=== PATIENT | female | born 1960 | race Caucasian/White ===

== ENCOUNTER 2016-05-04 01:59 | Inpatient (IN) | payer OTHER ==
[~2016-05-04] VITALS: Ht 154.9 cm; Wt 65.0 kg
[~2016-05-04 01:59] MED LIST: ALBU8I INH; ASPI81TA82 PO; METO25 PO; MVI PO; SYMB160A INH; TIOT18I INH; Z.0.WALKERFRONT
[2016-05-04 02:03] VITALS: BP 157/79; PULSE 77; RESP 22; TEMP 98.4; O2SAT 99
[2016-05-04] MEDS ORDERED: RESP: ALBUTEROL 2.5 MG/IPRATROPIUM 0.5 MG NEB (SCH) ONE (02:05)
--- NOTE | 2016-05-04 02:09 | PD ---
HPI Chief Complaint: Respiratory Symptoms Time Seen by Provider: 02:03 Travel History International Travel<30 days: No Contact w/Intl Traveler<30days: No Traveled to known affect area: No History of Present Illness HPI Patient's 56-year-old female presents emergency department after having sudden onset of shortness of breath. Patient has a history of asthma and states often this is her presentation. States started just prior to calling EMS. EMS arrived and gave her 3 duo nebs and 125,000,000 g on Medrol. On arrival she states she is feeling much better. She is able to talk in full sentences on arrival. Patient has a pertinent past history of a cardiac arrest at [facility] after sudden onset of shortness of breath. Patient states that she's been taking her inhalers at home and still has an occasional exacerbation. PFSH Past Medical History Cardiovascular Problems: Yes (htn) Respiratory: Yes (copd) Menopausal: Yes Tubal Ligation: Yes Social History Alcohol Use: No Tobacco Use: No Substance Use: Yes Allergies-Medications (Allergen,Severity, Reaction): Coded Allergies: No Known Allergies (Unverified , 05/04/16) Reported Meds & Prescriptions Reported Meds & Active Scripts Active Ventolin Hfa (Albuterol Sulfate) 8 Gm Aero 1 Puff INH Q4H PRN * SHAKE WELL BEFORE USE * Spiriva 18 Mcg Oral Inh (Tiotropium [place]) 18 Mcg Inhp 18 Mcg INH DAILY 30 Days Metoprolol Tartrate 25 mg (Metoprolol Tartrate) 25 Mg Tab 25 Mg PO Q12HR Symbicort (Budesonide/Formoterol Fumarate) 160 Mcg/4.5 Mcg Aer 2 Puff INH Q12HR 30 Days Aspir-81 (Aspirin) 81 Mg Tab 81 Mg PO DAILY Walker Front Wheel (Walkerfront) Device 1 Unit Theragran (Multivitamins) 1 Tab Tab 1 Tab PO DAILY 30 Days Review of Systems Except as stated in HPI: all other systems reviewed are Neg Physical Exam Narrative GENERAL: Well-developed well-nourished no apparent distress. Speaking in full sentences. SKIN: Warm and dry. HEAD: Atraumatic. Normocephalic. EYES: Pupils equal and round. No scleral icterus. No injection or drainage. ENT: No nasal bleeding or discharge. Mucous membranes pink and moist. NECK: Trachea midline. No JVD. CARDIOVASCULAR: Regular rate and rhythm. No murmur appreciated. RESPIRATORY: No accessory muscle use. Patient has Holo-expiratory wheezing. Breath sounds equal bilaterally. Somewhat decreased air entry. GASTROINTESTINAL: Abdomen soft, non-tender, nondistended. Hepatic and splenic margins not palpable. MUSCULOSKELETAL: No obvious deformities. No clubbing. No cyanosis. No edema. NEUROLOGICAL: Awake and alert. No obvious cranial nerve deficits. Motor grossly within normal limits. Normal speech. PSYCHIATRIC: Appropriate mood and affect; insight and judgment normal. Data Data Last Documented VS Vital Signs Date Time Temp Pulse Resp B/P Pulse Ox O2 Delivery O2 Flow Rate FiO2 05/04/16 05:00 74 22 145/65 98 Nasal Cannula 2 05/04/16 02:03 98.4 Orders Albuterol-Ipratropium Neb (Duoneb Neb) (05/04/16 02:05) Electrocardiogram (05/04/16 02:11) Basic Metabolic Panel (Bmp) (05/04/16 02:11) Complete Blood Count With Diff (05/04/16 02:11) Chest, Single Ap (05/04/16 02:11) Ecg Monitoring (05/04/16 02:11) Iv Access Insert/Monitor (05/04/16 02:11) Oximetry (05/04/16 02:11) Oxygen Administration (05/04/16 02:11) Albuterol-Ipratropium Neb (Duoneb Neb) (05/04/16 02:15) Sodium Chloride 0.9% Flush (Ns Flush) (05/04/16 02:15) Troponin I (05/04/16 02:11) Resp Mdi / Spacer Instruction (05/04/16 ) Resp Home Oxygen Walk Test (05/04/16 ) Magnesium Sulfate 1 Gm Premix (Magnesium (05/04/16 04:15) Albuterol-Ipratropium Neb (Duoneb Neb) (05/04/16 04:30) Admit Order (Ed Use Only) (05/04/16 ) Labs Laboratory Tests Test 05/04/16 02:30 White Blood Count 9.9 TH/MM3 Red Blood Count 4.06 MIL/MM3 Hemoglobin 12.4 GM/DL Hematocrit 36.3 % Mean Corpuscular Volume 89.3 FL Mean Corpuscular Hemoglobin 30.4 PG Mean Corpuscular Hemoglobin 34.1 % Concent Red Cell Distribution Width 13.2 % Platelet Count 284 TH/MM3 Mean Platelet Volume 8.9 FL Neutrophils (%) (Auto) 48.4 % Lymphocytes (%) (Auto) 39.3 % Monocytes (%) (Auto) 7.3 % Eosinophils (%) (Auto) 2.6 % Basophils (%) (Auto) 2.4 % Neutrophils # (Auto) 4.8 TH/MM3 Lymphocytes # (Auto) 3.9 TH/MM3 Monocytes # (Auto) 0.7 TH/MM3 Eosinophils # (Auto) 0.3 TH/MM3 Basophils # (Auto) 0.2 TH/MM3 CBC Comment DIFF FINAL Differential Comment Sodium Level 145 MEQ/L Potassium Level 4.0 MEQ/L Chloride Level 108 MEQ/L Carbon Dioxide Level 29.4 MEQ/L Anion Gap 8 MEQ/L Blood Urea Nitrogen 8 MG/DL Creatinine 0.88 MG/DL Estimat Glomerular Filtration 66 ML/MIN Rate Random Glucose 99 MG/DL Calcium Level 8.6 MG/DL Troponin I LESS THAN 0.02 NG/ML MDM Medical Decision Making Medical Screen Exam Complete: Yes Emergency Medical Condition: Yes Differential Diagnosis Hypoxic respiratory failure, asthma attack, PE (though highly unlikely). Narrative Course Patient despite 7 duoneb treatments, magnesium, steroids continues to be hypoxic on RA. 89 at resting on my second re-eval. Discussed with her admission criteria. Discussed with her that PE is on differential though very low and suggested a CT examination but there are risks of radiation and contrast exposure. She declines currently. Discussed with Dr. Roe for admission to Dr. Bland. Diagnosis Primary Impression: Acute respiratory failure with hypoxia Additional Impression: Asthma exacerbation Admitting Information Admitting Physician Requests: Admit Condition: Stable Ivan Nielson MD May 04, 2016 02:09
[2016-05-04] MEDS ORDERED: SODIUM CHLORIDE 0.9% FLUSH 5 ML FLUSH IVF PRN (02:15)
[2016-05-04] MEDS ORDERED: RESP: ALBUTEROL 2.5 MG/IPRATROPIUM 0.5 MG NEB (SCH) INH ONE (02:15)
[2016-05-04 02:21] VITALS: O2SAT 97
[2016-05-04 02:43] LABS: AUTOMATED NEUTROPHIL # 4.8 TH/MM3 (1.8-7.7); BASOPHIL # 0.2 TH/MM3 (0-0.2); BASOPHIL % 2.4 % (0.0-2.0); EOSINOPHIL # 0.3 TH/MM3 (0-0.4); EOSINOPHIL % 2.6 % (0.0-4.0); HEMATOCRIT 36.3 % (35.0-46.0); HEMO FLAGS DIFF FINAL; LYMPH % 39.3 % (9.0-44.0); LYMPHOCYTE # 3.9 TH/MM3 (1.0-4.8); MEAN CELL VOLUME 89.3 FL (80.0-100.0); MEAN CORPUSCULAR HEMOGLOBIN 30.4 PG (27.0-34.0); MEAN CORPUSCULAR HGB CONC 34.1 % (32.0-36.0); MONO % 7.3 % (0.0-8.0); NEUT % 48.4 % (16.0-70.0); PLATELET COUNT 284 TH/MM3 (150-450); RED BLOOD COUNT 4.06 MIL/MM3 (4.00-5.30); RED CELL DISTRIBUTION WIDTH 13.2 % (11.6-17.2); WHITE BLOOD COUNT 9.9 TH/MM3 (4.0-11.0)
--- NOTE | 2016-05-04 02:45 | RADRPT ---
EXAM DATE/TIME: 05/04/2016 02:33 [facility] COMPARISON: CHEST SINGLE AP, September 21, 2015, 4:29. INDICATIONS : Shortness of breath. MEDICAL HISTORY : Chronic obstructive pulmonary disease. SURGICAL HISTORY : None. ENCOUNTER: Initial ACUITY: 1 day PAIN SCORE: 0/10 LOCATION: Bilateral chest FINDINGS: A single view of the chest demonstrates the lungs to be symmetrically aerated without evidence of mas s, infiltrate or effusion. The cardiomediastinal contours are unremarkable. Osseous structures are intact. CONCLUSION: No acute cardiopulmonary process. Qamar Holden MD on May 04, 2016 at 2:43 Board Certified Radiologist. This report was verified electronically.
[2016-05-04 03:12] LABS: ANION GAP 8 MEQ/L (5-15); BICARBONATE 29.4 MEQ/L (21.0-32.0); BLOOD UREA NITROGEN 8 MG/DL (7-18); CHLORIDE 108 MEQ/L (98-107); GLOMERULAR FILTRATION RATE 66 ML/MIN (>89); SODIUM (NA) 145 MEQ/L (136-145)
[2016-05-04 04:00] VITALS: PULSE 68; RESP 22; O2SAT 95
[2016-05-04] MEDS ORDERED: RESP: ALBUTEROL 2.5 MG/IPRATROPIUM 0.5 MG NEB (SCH) NEB ONE (04:30)
[2016-05-04 05:00] VITALS: BP 145/65; PULSE 74; RESP 22; O2SAT 98
[2016-05-04] MEDS: MAGNESIUM SULFATE 1 GM PREMIX 100 ML IV SCH ×2 (05:32→07:00)
[2016-05-04] MEDS ORDERED: RESP: ALBUTEROL 2.5 MG/IPRATROPIUM 0.5 MG NEB (PRN) NEB (08:15)
[2016-05-04] MEDS ORDERED: ACETAMINOPHEN 325 MG TAB PO PRN (08:15)
[2016-05-04] MEDS ORDERED: ONDANSETRON HCL 4 MG/2 ML VIAL IV PRN (08:15)
--- NOTE | 2016-05-04 08:23 | HHI.HP ---
HPI Service [facility] Hospitalists Primary Care Physician No Primary Care Physician Admission Diagnosis Asthma Exacerbation, Hypoxic Respiratory failure. Chief Complaint: SOB Travel History International Travel<30 Days: No Contact w/Intl Traveler <30 Da: No Traveled to Known Affected Are: No Past Family Social History Past Medical History COPD Asthma Hx of cardiac arrest in 2016 Possible [place] Past Surgical History Tubal ligation Skin cancer removal Reported Medications -Ventolin Hfa (Albuterol Sulfate) 8 Gm Aero 1 Puff INH Q4H PRN -Spiriva 18 Mcg Oral Inh 18 Mcg INH DAILY 30 Days -Metoprolol Tartrate 25 Mg PO Q12HR -Symbicort 160 Mcg/4.5 Mcg Aer 2 Puff INH Q12HR 30 Days -Aspirin 81 Mg PO DAILY -Theragran (Multivitamins) 1 Tab PO DAILY 30 Days Allergies: Coded Allergies: No Known Allergies (Unverified , 05/04/16) Family History Daughter with diabetes Father with hx of cardiac arrest at age 69 Social History Hx of tobacco use, smoked 1-2ppd x 45 years, quit in 08/2015 (+) Alcohol use, drinks 4 beers daily 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 HEENT: Atraumatic. Normocephalic. No temporal or scalp tenderness. No scleral icterus. Airway patent. NECK: Trachea midline, supple, nontender. CARDIO: Regular. RESP: CTA bilaterally. No wheezes, rales, or rhonchi. ABD: +BS, soft, non-tender, nondistended. EXT: Extremities without clubbing, cyanosis, or edema. NEURO: Awake and alert. Motor and sensory grossly within normal limits. Normal speech. Laboratory Laboratory Tests Test 05/04/16 02:30 White Blood Count 9.9 Red Blood Count 4.06 Hemoglobin 12.4 Hematocrit 36.3 Mean Corpuscular Volume 89.3 Mean Corpuscular Hemoglobin 30.4 Mean Corpuscular Hemoglobin 34.1 Concent Red Cell Distribution Width 13.2 Platelet Count 284 Mean Platelet Volume 8.9 Neutrophils (%) (Auto) 48.4 Lymphocytes (%) (Auto) 39.3 Monocytes (%) (Auto) 7.3 Eosinophils (%) (Auto) 2.6 Basophils (%) (Auto) 2.4 Neutrophils # (Auto) 4.8 Lymphocytes # (Auto) 3.9 Monocytes # (Auto) 0.7 Eosinophils # (Auto) 0.3 Basophils # (Auto) 0.2 CBC Comment DIFF FINAL Differential Comment Sodium Level 145 Potassium Level 4.0 Chloride Level 108 Carbon Dioxide Level 29.4 Anion Gap 8 Blood Urea Nitrogen 8 Creatinine 0.88 Estimat Glomerular Filtration 66 Rate Random Glucose 99 Calcium Level 8.6 Troponin I LESS THAN 0.02 Result Diagram: 05/04/1622905/04/16229 Imaging Last Impressions Chest X-Ray 05/04/16210 Signed Impressions: Service Date/Time: Wednesday, May 04, 2016 02:33 - CONCLUSION: No acute cardiopulmonary process. Qamar Holden MD Septic Shock Reassessment Heart: Regular rate and rhythm Lungs: Clear Skin: Warm Peripheral Pulses: Bounding Right Radial Bounding Left Radial Bounding Right Popliteal Bounding Left Popliteal Bounding Right Dorsalis Pedis Bounding Left Dorsalis Pedis Bounding Right Posterior Tibial Bounding Left Posterior Tibial Capillary Refill: <2 seconds Assessment and Plan Problem List: (1) COPD with exacerbation Status: Acute Physician Certification Order for Inpatient Services The services are ordered in accordance with Medicare regulations or non- Medicare payer requirements, as applicable. In the case of services not specified as inpatient-only, they are appropriately provided as inpatient services in accordance with the 2-midnight benchmark. days is the estimated time the patient will need to remain in the hospital, assuming treatment plan goals are met and no additional complications. Anu Alcala May 04, 2016 08:23
[2016-05-04] MEDS ORDERED: METO100T PO (08:33)
[2016-05-04] MEDS ORDERED: LISI10TA PO (08:33)
[2016-05-04] MEDS ORDERED: BUDESONIDE-FORMOTEROL 160/4.5 MCG INHALER INH SCH (09:00)
[2016-05-04] MEDS ORDERED: TIOTROPIUM BROMIDE 18 MCG INH INH SCH (09:00)
[2016-05-04] MEDS ORDERED: METOPROLOL TARTRATE 100 MG TAB PO SCH (09:00)
[2016-05-04] MEDS ORDERED: METOPROLOL TARTRATE 25 MG TAB PO SCH (09:00)
[2016-05-04] MEDS ORDERED: methylPREDNISolone SOD SUCC 125 MG/2 ML VIAL IV PUSH SCH (09:00)
[2016-05-04] MEDS ORDERED: HYDROCHLOROTHIAZIDE 12.5 MG CAP PO SCH (09:00)
[2016-05-04] MEDS ORDERED: LISINOPRIL 10 MG TAB PO SCH (09:00)
--- NOTE | 2016-05-04 10:15 | EKG ---
Date Performed: 05/04/2016 Time Performed: 02:17:32 PTAGE: 56 years EKG: Sinus rhythm NORMAL ECG Compared to prior tracing no significant change PREVIOUS TRACING : 09/21/2015 17.18 DOCTOR: Qasim Marinelli Interpretating Date/Time 05/04/2016 10:13:23
--- NOTE | 2016-05-04 10:15 | HHI.HP ---
[facility] Service [facility] Hospitalists Primary Care Physician No Primary Care Physician Admission Diagnosis Asthma Exacerbation, Hypoxic Respiratory failure. Diagnoses: (1) COPD with exacerbation Diagnosis: Principal Chief Complaint: SOB Travel History International Travel<30 Days: No Contact w/Intl Traveler <30 Da: No Traveled to Known Affected Are: No History of Present Illness This is a pleasant 56-year-old female patient with past medical history which includes hypertension, COPD and recent cardiac arrest September 08, 2015 after shortness of breath. Patient had an extended hospital stay including ICU and intubation was discharged 10/01/2015. Patient reports she, "always," has some shortness of breath secondary to her COPD seemed to be at her baseline yesterday. Patient reports that she awoke around 11:30 PM yesterday evening gasping for breath tried several of her inhalers at home with no relief therefore proceeded to the emergency department for further evaluation and treatment. Patient has received several nebulizers treatments as well as 125 mg of IV Solu-Medrol and feels her breathing is much better and her wheezing has stopped. Per ER physician documentation patient was 89% on room air and is recommending admission. Patient is concerned about staying in the hospital she reports she is concerned that she has to work tomorrow. Patient has also refused CT angiogram to R/O PE. At this time patient reports her shortness of breath is much better. Patient does report she has an nonproductive cough which she gets twice a year consistent with her seasonal allergies. Patient denies chest pain nausea vomiting diarrhea constipation fevers or chills. Review of Systems Except as stated in HPI: all other systems reviewed are Neg Past Family Social History Past Medical History hypertension, COPD and recent cardiac arrest September 08, 2015 after shortness of breath. Past Surgical History Tubal ligation Reported Medications Ventolin Hfa (Albuterol Sulfate) 8 Gm Aero 1 Puff INH Q4H PRN * SHAKE WELL BEFORE USE * Spiriva 18 Mcg Oral Inh (Tiotropium [place]) 18 Mcg Inhp 18 Mcg INH DAILY 30 Days Symbicort (Budesonide/Formoterol Fumarate) 160 Mcg/4.5 Mcg Aer 2 Puff INH Q12HR 30 Days Aspir-81 (Aspirin) 81 Mg Tab 81 Mg PO DAILY Theragran (Multivitamins) 1 Tab Tab 1 Tab PO DAILY 30 Days Lisinopril-Hctz 10-12.5 Mg Tab 1 Tab PO DAILY Metoprolol Tartrate 100 Mg Tab 100 Mg PO BID Allergies: Coded Allergies: No Known Allergies (Unverified , 05/04/16) Active Ordered Medications Current Medications Medications (Trade) Dose Ordered Sig/Amadou Route Start Time Stop Time Status Last Admin (NS Flush) 2 ml UNSCH PRN IVF 05/04/16 02:15 (SoluMEDROL INJ) 60 mg Q6H IV PUSH 05/04/16 09:00 (Symbicort 160-4.5 Inh) 2 puff Q12HR INH 05/04/16 09:00 (Spiriva Inh) 18 mcg DAILY INH 05/04/16 09:00 (Tylenol) 650 mg Q4H PRN PO 05/04/16 08:15 (Zofran Inj) 4 mg Q6H PRN IV 05/04/16 08:15 (Lopressor) 100 mg BID PO 05/04/16 09:00 (Prinivil) 10 mg DAILY PO 05/04/16 09:00 (Microzide) 12.5 mg DAILY PO 05/04/16 09:00 Family History Father at age 69 secondary to PR Mother is 83 alive and healthy Social History Patient reports she has cut back on her alcohol use current EtOH use 2-3 beers 2 -3 times a week not on a daily basis Patient has a history of tobacco use quit smoking cigarettes September 08, 2015 prior to that smoked 3-4 cigarettes per day for 30+ years Denies illicit drug use Physical Exam Vital Signs Vital Signs Date Time Temp Pulse Resp B/P Pulse Ox O2 Delivery O2 Flow Rate FiO2 05/04/16 05:00 74 22 145/65 98 Nasal Cannula 2 05/04/16 04:00 68 22 95 Nasal Cannula 2 05/04/16 02:21 97 Nasal Cannula 2.00 05/04/16 02:15 96 Nasal Cannula 2 05/04/16 02:03 98.4 77 22 157/79 99 Physical Exam GENERAL: This is a well-nourished, well-developed patient, in no apparent distress. SKIN: No rashes, ecchymoses or lesions. Cool and dry. HEAD: Atraumatic. Normocephalic. No temporal or scalp tenderness. EYES: Extraocular motions intact. No scleral icterus. No injection or drainage. CARDIOVASCULAR: Regular rate and rhythm without murmurs, gallops, or rubs. RESPIRATORY: Decreased air entry bilaterally. No wheezes, rales, or rhonchi. GASTROINTESTINAL: Abdomen soft, non-tender, nondistended. No hepato-splenomegaly , or palpable masses. No guarding. MUSCULOSKELETAL: Extremities without clubbing, cyanosis, or edema. No joint tenderness, effusion, or edema noted. No calf tenderness. Negative Homans sign bilaterally. NEUROLOGICAL: Awake and alert. Cranial nerves II through XII intact. Motor and sensory grossly within normal limits. Five out of 5 muscle strength in all muscle groups. Normal speech. Laboratory Laboratory Tests Test 05/04/16 02:30 White Blood Count 9.9 Red Blood Count 4.06 Hemoglobin 12.4 Hematocrit 36.3 Mean Corpuscular Volume 89.3 Mean Corpuscular Hemoglobin 30.4 Mean Corpuscular Hemoglobin 34.1 Concent Red Cell Distribution Width 13.2 Platelet Count 284 Mean Platelet Volume 8.9 Neutrophils (%) (Auto) 48.4 Lymphocytes (%) (Auto) 39.3 Monocytes (%) (Auto) 7.3 Eosinophils (%) (Auto) 2.6 Basophils (%) (Auto) 2.4 Neutrophils # (Auto) 4.8 Lymphocytes # (Auto) 3.9 Monocytes # (Auto) 0.7 Eosinophils # (Auto) 0.3 Basophils # (Auto) 0.2 CBC Comment DIFF FINAL Differential Comment Sodium Level 145 Potassium Level 4.0 Chloride Level 108 Carbon Dioxide Level 29.4 Anion Gap 8 Blood Urea Nitrogen 8 Creatinine 0.88 Estimat Glomerular Filtration 66 Rate Random Glucose 99 Calcium Level 8.6 Troponin I LESS THAN 0.02 Result Diagram: 05/04/160 05/04/16229 Imaging Last Impressions Chest X-Ray 05/04/16210 Signed Impressions: Service Date/Time: Wednesday, May 04, 2016 02:33 - CONCLUSION: No acute cardiopulmonary process. Qamar Holden MD Assessment and Plan Problem List: (1) COPD with exacerbation ICD Code: J44.1 Status: Acute Assessment and Plan This is a pleasant 56-year-old female patient with past medical history which includes hypertension, COPD and recent cardiac arrest September 08, 2015 after shortness of breath. Patient had an extended hospital stay including ICU and intubation was discharged 10/01/2015. Patient reports she, "always," has some shortness of breath secondary to her COPD seemed to be at her baseline yesterday. Patient reports that she awoke around 11:30 PM yesterday evening gasping for breath tried several of her inhalers at home with no relief therefore proceeded to the emergency department for further evaluation and treatment. Patient has received several nebulizers treatments as well as 125 mg of IV Solu-Medrol and feels her breathing is much better and her wheezing has stopped. Per ER physician documentation patient was 89% on room air and is recommending admission. Chronic COPD with acute exacerbation Patient has received nebulizer treatment 3 as well as 125 mg Solu-Medrol Continue duo nebs every 4 hours while awake scheduled and when necessary Continue Solu-Medrol IV 60 mg every 6 hours Titrate oxygen to maintain saturation above 92% Continue Spiriva daily as well as Symbicort every 12 hours Hypertension continue patient's home lisinopril 10 mg daily as well as hydrochlorothiazide 12.5 mg daily Continue patient's home metoprolol 100 mg twice a day consider changing agents secondary to COPD DVT prophylaxis with SCDs Discussed plan of care with patient and Dr. Morel Patient seen in Emergency Room in the presence of her Mother Mrs. Malissa Suárez, the patient wants to go home just was admitted and continue using Nasal Cannula, will continue present care, will start titration of her Steroids now, continue Bronchodilator, Mucolytic and incentive spirometry, she was heavy smoker until August last year. Recommended to receive management until stable to go Home. Alexandria Cardoza May 04, 2016 10:15 Raciel Morel MD May 04, 2016 11:31
[2016-05-04] MEDS ORDERED: guaiFENesin E.R. 600 MG TAB PO SCH (12:00)
[2016-05-04] MEDS ORDERED: RESP: ALBUTEROL 2.5 MG/IPRATROPIUM 0.5 MG NEB (SCH) NEB (12:00)
[2016-05-04] MEDS ORDERED: methylPREDNISolone SOD SUCC 40 MG/1 ML VIAL IV PUSH SCH (14:00)
== END 2016-05-04 11:57 | disposition left against medical advice (07) | DRG 192 ==
LOC: NEPC 01:59 → NEDA 06:10
PROVIDERS: ADMIT Internal Medicine; ATTEND Internal Medicine
PROC: 3E0F7GC Introduction of Other Therapeutic Substance into Respiratory Tract, Via Natural or Artificial Opening (ICD-10-PCS; principal; 2016-05-04)
DX: J44.1 Chronic obstructive pulmonary disease with (acute) exacerbation (principal); J45.909 Unspecified asthma, uncomplicated; Z86.74 Personal history of sudden cardiac arrest; I10 Essential (primary) hypertension; Z85.828 Personal history of other malignant neoplasm of skin; Z87.891 Personal history of nicotine dependence
CPT/HCPCS: 71010; 80048; 84484; 85025; 93005; 94640; 94664; 96365; J2930; J3475

== ENCOUNTER 2016-08-23 04:38 | Emergency (ER) | payer SELFPAY ==
[~2016-08-23] VITALS: Ht 160 cm; Wt 80.0 kg
[~2016-08-23 04:38] MED LIST changes: +LISI10TA PO; +METO100T PO; -METO25 PO; -Z.0.WALKERFRONT
[2016-08-23 04:40] VITALS: BP 176/94; PULSE 107; RESP 24; TEMP 97.8; O2SAT 94
[2016-08-23 04:49] VITALS: BP 151/92; PULSE 97; RESP 28; TEMP 96.9; O2SAT 94
[2016-08-23 04:55] VITALS: O2SAT 98
[2016-08-23] MEDS ORDERED: SPIRCAP INH (04:58)
[2016-08-23] MEDS ORDERED: MULTTAB67 PO (04:58)
[2016-08-23] MEDS ORDERED: SYMB160A INH (04:58)
[2016-08-23] MEDS ORDERED: ALBUAER3 INH (04:58)
--- NOTE | 2016-08-23 04:58 | PD ---
HPI Chief Complaint: Respiratory Distress Time Seen by Provider: 04:48 Travel History International Travel<30 days: No Contact w/Intl Traveler<30days: No Traveled to known affect area: No History of Present Illness HPI The patient is a 56-year-old female who presents emergency department shortness of breath. The patient developed shortness of breath earlier today approximately 1 PM she was at work. The patient has been using her albuterol inhaler without any alleviation of her symptoms. The patient does have a history of COPD and was seen in Dr. 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 Her primary physician is Dr. Reilly Lund. Patient notes it mostly dry nonproductive cough, chest tightness with audible wheezing. She denies any fever, chills, or sweats. The patient does have a history of cardiopulmonary arrest which she believes was attributed to pulmonary issues, she did not require an AICD her pacemaker placement. She denies any history of congestive heart failure, pulmonary embolism, or DVT. Symptoms are moderate, not alleviated with an albuterol inhaler, and there are no known exacerbating factors. PFSH Past Medical History Cardiovascular Problems: Yes (htn) Respiratory: Yes (copd) Menopausal: Yes Tubal Ligation: Yes Social History Alcohol Use: No Tobacco Use: No Substance Use: Yes Allergies-Medications (Allergen,Severity, Reaction): Coded Allergies: No Known Allergies (Unverified , 08/23/16) Reported Meds & Prescriptions Reported Meds & Active Scripts Active Reported Spiriva Handihaler (Tiotropium Inh) 18 Mcg Cap 18 Mcg INH DAILY 1 capsule = 18 mcg Multiple Vitamin 1 Tab 1 Tab PO DAILY Proair Hfa 8.5 GM Inh (Albuterol Sulfate) 90 Mcg/Act Aer 2 Puff INH Q6H PRN 108 mcg/actuation Symbicort Inh (Budesonide/Formoterol Fumarate) 160-4.5 Mcg/Act Aero 2 Puff INH Q12HR Lisinopril-Hctz 10-12.5 Mg Tab 1 Tab PO DAILY Review of Systems Except as stated in HPI: all other systems reviewed are Neg General / Constitutional: No: Fever, Chills HENT: No: Lightheadedness Cardiovascular: Positive: Chest Pain or Discomfort (tightness) Respiratory: Positive: Cough, Shortness of Breath, Wheezing, No: Orthopnea Gastrointestinal: No: Nausea, Vomiting, Abdominal Pain Musculoskeletal: No: Edema Neurologic: No: Dizziness Physical Exam Narrative GENERAL: Awake, alert, pleasant 56 year-old female who appears her stated age and is in moderate respiratory distress SKIN: Focused skin assessment warm/dry. HEAD: Atraumatic. Normocephalic. EYES: Pupils equal and round. No scleral icterus. No injection or drainage. ENT: No nasal bleeding or discharge. Mucous membranes pink and moist. NECK: Trachea midline. No JVD. CARDIOVASCULAR: Regular rate and rhythm. No murmur appreciated. Heart rate in the 90s. RESPIRATORY: Tachypnea with a respiratory rate of 26. Supraclavicular retractions noted. Breath sounds throughout with prolonged expiratory phase and wheezing noted. GASTROINTESTINAL: Abdomen soft, non-tender, nondistended. MUSCULOSKELETAL: No obvious deformities. No clubbing. No cyanosis. No edema. NEUROLOGICAL: Awake and alert. No obvious cranial nerve deficits. Motor grossly within normal limits. Normal speech. PSYCHIATRIC: Appropriate mood and affect; insight and judgment normal. Data Data Last Documented VS Vital Signs Date Time Temp Pulse Resp B/P Pulse Ox O2 Delivery O2 Flow Rate FiO2 08/23/16 06:08 21 93 Room Air 08/23/16 04:55 2 08/23/16 04:49 96.9 97 151/92 Orders Complete Blood Count With Diff (08/23/16 04:53) Comprehensive Metabolic Panel (08/23/16 04:53) Magnesium (Mg) (08/23/16 04:53) Iv Access Insert/Monitor (08/23/16 04:53) Electrocardiogram (08/23/16 04:53) Ecg Monitoring (08/23/16 04:53) Oximetry (08/23/16 04:53) Oxygen Administration (08/23/16 04:53) Chest, Single Ap (08/23/16 04:53) Sodium Chloride 0.9% Flush (Ns Flush) (08/23/16 05:00) Methylprednisolone So Succ Inj (Solumedr (08/23/16 05:00) Albuterol-Ipratropium Neb (Duoneb Neb) (08/23/16 05:00) Labs Laboratory Tests Test 08/23/16 05:02 White Blood Count 10.8 TH/MM3 Red Blood Count 4.78 MIL/MM3 Hemoglobin 14.4 GM/DL Hematocrit 42.5 % Mean Corpuscular Volume 89.1 FL Mean Corpuscular Hemoglobin 30.1 PG Mean Corpuscular Hemoglobin 33.7 % Concent Red Cell Distribution Width 13.5 % Platelet Count 306 TH/MM3 Mean Platelet Volume 8.6 FL Neutrophils (%) (Auto) 60.9 % Lymphocytes (%) (Auto) 29.5 % Monocytes (%) (Auto) 7.0 % Eosinophils (%) (Auto) 2.3 % Basophils (%) (Auto) 0.3 % Neutrophils # (Auto) 6.6 TH/MM3 Lymphocytes # (Auto) 3.2 TH/MM3 Monocytes # (Auto) 0.8 TH/MM3 Eosinophils # (Auto) 0.2 TH/MM3 Basophils # (Auto) 0.0 TH/MM3 CBC Comment DIFF FINAL Differential Comment Sodium Level 139 MEQ/L Potassium Level 4.0 MEQ/L Chloride Level 105 MEQ/L Carbon Dioxide Level 25.8 MEQ/L Anion Gap 8 MEQ/L Blood Urea Nitrogen 12 MG/DL Creatinine 0.78 MG/DL Estimat Glomerular Filtration 76 ML/MIN Rate Random Glucose 94 MG/DL Calcium Level 9.3 MG/DL Magnesium Level 2.0 MG/DL Total Bilirubin 0.3 MG/DL Aspartate Amino Transf 25 U/L (AST/SGOT) Alanine Aminotransferase 34 U/L (ALT/SGPT) Alkaline Phosphatase 95 U/L Total Protein 7.7 GM/DL Albumin 3.8 GM/DL MDM Medical Decision Making Medical Screen Exam Complete: Yes Emergency Medical Condition: Yes Medical Record Reviewed: Yes Interpretation(s) EKG reveals normal sinus rhythm with a rate of 88. No ischemic changes or ectopy noted. Laboratory Tests Test 08/23/16 05:02 White Blood Count 10.8 TH/MM3 Red Blood Count 4.78 MIL/MM3 Hemoglobin 14.4 GM/DL Hematocrit 42.5 % Mean Corpuscular Volume 89.1 FL Mean Corpuscular Hemoglobin 30.1 PG Mean Corpuscular Hemoglobin 33.7 % Concent Red Cell Distribution Width 13.5 % Platelet Count 306 TH/MM3 Mean Platelet Volume 8.6 FL Neutrophils (%) (Auto) 60.9 % Lymphocytes (%) (Auto) 29.5 % Monocytes (%) (Auto) 7.0 % Eosinophils (%) (Auto) 2.3 % Basophils (%) (Auto) 0.3 % Neutrophils # (Auto) 6.6 TH/MM3 Lymphocytes # (Auto) 3.2 TH/MM3 Monocytes # (Auto) 0.8 TH/MM3 Eosinophils # (Auto) 0.2 TH/MM3 Basophils # (Auto) 0.0 TH/MM3 CBC Comment DIFF FINAL Differential Comment Sodium Level 139 MEQ/L Potassium Level 4.0 MEQ/L Chloride Level 105 MEQ/L Carbon Dioxide Level 25.8 MEQ/L Anion Gap 8 MEQ/L Blood Urea Nitrogen 12 MG/DL Creatinine 0.78 MG/DL Estimat Glomerular Filtration 76 ML/MIN Rate Random Glucose 94 MG/DL Calcium Level 9.3 MG/DL Magnesium Level 2.0 MG/DL Total Bilirubin 0.3 MG/DL Aspartate Amino Transf 25 U/L (AST/SGOT) Alanine Aminotransferase 34 U/L (ALT/SGPT) Alkaline Phosphatase 95 U/L Total Protein 7.7 GM/DL Albumin 3.8 GM/DL Chest x-ray reveals no acute disease. Differential Diagnosis Differential diagnosis includes COPD exacerbation, congestive heart failure, flash pulmonary edema, pleural effusion, pneumonia, bronchitis, acute coronary syndrome. Narrative Course IV was established, labs are drawn and sent, and the patient was placed on cardiac telemetry monitoring and continuous pulse oximetry monitoring. EKG was ordered and interpreted. Chest x-ray was obtained. The patient was administered Solu-Medrol 125 mg each intravenously and duo nebs 3. Chest x- ray was negative. Laboratory evaluation is unremarkable. The patient was reevaluated multiple times, her lung sounds had improved. Her symptoms did improve. Desaturation on room air was 93%. I do discussion with the patient regarding 23 hour observation versus discharge home, she would prefer to be discharged home. I will write for duo nebs, albuterol nebs, Zithromax, and prednisone. She is advised to return if symptoms worsen or progress. Diagnosis Primary Impression: COPD with exacerbation Patient Instructions: General Instructions Additional Instructions: Medications as directed. Duo nebs every 6 hours, albuterol nebulizers in between every 4 hours as needed. Return if symptoms worsen or progress. Follow -up with your primary physician. Please provide a patient a copy of her x-ray results and lab results at discharge. Med/Other Pt SpecificInfo: Prescription(s) given Scripts Azithromycin (Zithromax Z-Rishabh)250 Mg [id number] Mg PO DIRECTED #1 DSPK Ref 0 500 MG (2 tabs) day 1, then 1 tab days 2-5. Prov:Jay Jay Daniel MD 08/23/16 Albuterol Neb 2.5 Mg/3 Ml Neb2.5 Mg NEB Q4HR NEB PRN (SHORTNESS OF BREATH) #60 NEBULE Ref 0 Prov:Jay Jay Daniel MD 08/23/16 Ipratropium-Albuterol Neb (Duoneb)0.5-2.5 Mg/3 Ml Neb1 Nebule INH Q6HR NEB # 120 NEBULE Ref 0 Prov:Jay Jay Daniel MD 08/23/16 Prednisone (Deltasone)20 Mg Tab40 Mg PO DAILY 5 Days Ref 0 Prov:Jay Jay Daniel MD 08/23/16 Disposition: 01 DISCHARGE HOME Condition: Stable Jay Jay Daniel MD Aug 23, 2016 04:58
[2016-08-23] MEDS ORDERED: methylPREDNISolone SOD SUCC 125 MG/2 ML VIAL IVP ONE (05:00)
[2016-08-23] MEDS ORDERED: SODIUM CHLORIDE 0.9% FLUSH 10 ML FLUSH IVF PRN (05:00)
[2016-08-23] MEDS: RESP: ALBUTEROL 2.5 MG/IPRATROPIUM 0.5 MG NEB (SCH) INH (05:01)
--- NOTE | 2016-08-23 05:11 | RADRPT ---
EXAM DATE/TIME: 08/23/2016 05:06 [facility] COMPARISON: CHEST SINGLE AP, May 04, 2016, 2:33. INDICATIONS : Shortness of breath MEDICAL HISTORY : Chronic obstructive pulmonary disease. SURGICAL HISTORY : None. ENCOUNTER: Initial ACUITY: 1 day PAIN SCORE: 7/10 LOCATION: Bilateral chest FINDINGS: A single view of the chest demonstrates the lungs to be symmetrically aerated without evidence of mas s, infiltrate or effusion. The cardiomediastinal contours are unremarkable. Osseous structures are intact. CONCLUSION: No acute disease. Santana Ríos MD on August 23, 2016 at 5:09 Board Certified Radiologist. This report was verified electronically.
[2016-08-23 05:12] LABS: AUTOMATED NEUTROPHIL # 6.6 TH/MM3 (1.8-7.7); BASOPHIL % 0.3 % (0.0-2.0); EOSINOPHIL # 0.2 TH/MM3 (0-0.4); EOSINOPHIL % 2.3 % (0.0-4.0); HEMATOCRIT 42.5 % (35.0-46.0); HEMO FLAGS DIFF FINAL; LYMPH % 29.5 % (9.0-44.0); LYMPHOCYTE # 3.2 TH/MM3 (1.0-4.8); MEAN CELL VOLUME 89.1 FL (80.0-100.0); MEAN CORPUSCULAR HEMOGLOBIN 30.1 PG (27.0-34.0); MEAN CORPUSCULAR HGB CONC 33.7 % (32.0-36.0); NEUT % 60.9 % (16.0-70.0); PLATELET COUNT 306 TH/MM3 (150-450); RED BLOOD COUNT 4.78 MIL/MM3 (4.00-5.30); RED CELL DISTRIBUTION WIDTH 13.5 % (11.6-17.2); WHITE BLOOD COUNT 10.8 TH/MM3 (4.0-11.0)
[2016-08-23 05:26] LABS: ALT (GPT) 34 U/L (10-53); ANION GAP 8 MEQ/L (5-15); AST (GOT) 25 U/L (15-37); BICARBONATE 25.8 MEQ/L (21.0-32.0); BLOOD UREA NITROGEN 12 MG/DL (7-18); CHLORIDE 105 MEQ/L (98-107); GLOMERULAR FILTRATION RATE 76 ML/MIN (>89); SODIUM (NA) 139 MEQ/L (136-145)
[2016-08-23 05:28] LABS: ALKALINE PHOSPHATASE 95 U/L (45-117); TOTAL BILIRUBIN ADULT 0.3 MG/DL (0.2-1.0)
[2016-08-23 06:08] VITALS: RESP 21; O2SAT 93
[2016-08-23] MEDS ORDERED: IPRASOL INH (06:13)
[2016-08-23] MEDS ORDERED: ZITHTAB PO (06:13)
[2016-08-23] MEDS ORDERED: PRED-503 PO (06:13)
[2016-08-23] MEDS ORDERED: ALBU0.08 NEB (06:13)
[2016-08-23 06:34] VITALS: BP 121/58; PULSE 90; RESP 20; O2SAT 93
--- NOTE | 2016-08-23 11:54 | EKG ---
Date Performed: 08/23/2016 Time Performed: 05:02:55 PTAGE: 56 years EKG: Sinus rhythm Since previous tracing, no significant change noted NORMAL ECG PREVIOUS TRACING : 05/04/2016 02.17 DOCTOR: Qasim Marinelli Interpretating Date/Time 08/23/2016 11:53:27
== END 2016-08-23 06:49 | disposition home or self-care (01) ==
LOC: NEPC 04:38
DX: J44.1 Chronic obstructive pulmonary disease with (acute) exacerbation (principal); I10 Essential (primary) hypertension; Z79.899 Other long term (current) drug therapy
CPT/HCPCS: 71010; 80053; 83735; 85025; 93005; 94640; 94664; 96374; 99285; J2930

== ENCOUNTER 2016-09-24 20:18 | Emergency (ER) | payer SELFPAY ==
[~2016-09-24] VITALS: Ht 154.9 cm; Wt 65.0 kg
[~2016-09-24 20:18] MED LIST changes: +ALBU0.08 NEB; -ALBU8I INH; +ALBUAER3 INH; -ASPI81TA82 PO; +IPRASOL INH; -METO100T PO; +MULTTAB67 PO; -MVI PO; +PRED-503 PO; +SPIRCAP INH; -TIOT18I INH; +ZITHTAB PO
[2016-09-24 20:20] VITALS: O2SAT 96
[2016-09-24] MEDS ORDERED: SODIUM CHLORIDE 0.9% FLUSH 10 ML FLUSH IVF PRN (20:30)
[2016-09-24 20:35] LABS: BLOOD GAS BASE EXCESS -1.8 mmol/L (-2-2); BLOOD GAS CARBOXYHEMOGLOBIN 0.9 % (0-4); BLOOD GAS HCO3 23 mmol/L (22-26); BLOOD GAS METHEMOGLOBIN 0.6 % (0-2); BLOOD GAS O2 HGB SATURATION 96 % (90-100); BLOOD GAS OXYGEN CONTENT 19.9 Vol % (12.0-20.0); BLOOD GAS PCO2 40 mmHg (38-42); BLOOD GAS PO2 105 mmHG (61-120); BLOOD GAS TOTAL HGB 14.6 G/DL (12.0-16.0); CRITICAL VALUE NO; DRAW SITE RT RADIAL; FIO2 35 %; NUMBER OF ARTERIAL PUNCTURES 1; OXYGEN DEVICE BIPAP; STAT YES; TEMP CORR TO 98.6; ULNAR PULSE PRESENT; VENT SETTINGS IPAP=12 EPAP=6
--- NOTE | 2016-09-24 20:35 | PD ---
HPI . SOB Chief Complaint: shortness of breath Time Seen by Provider: 20:28 Travel History International Travel<30 days: No Contact w/Intl Traveler<30days: No History of Present Illness HPI Acute onset of worsened SOB about hours ago. Symptoms were initially quite severe. She used 1 neb prior to the arrival of FD and was given a 2nd by FD. EMS gave 3 more for a total of 5 [employer]. She was also given Solu-Medrol. She is getting better with this treatment. She denies purulent sputum but believes she may be running a fever. She denies any h/o CHF. She has had a previous resp arrest resulting in intubation about a year ago. PFSH Past Medical History Cardiovascular Problems: Yes (htn) COPD: Yes Respiratory: Yes (copd) Menopausal: Yes Tubal Ligation: Yes Social History Alcohol Use: No Tobacco Use: No Substance Use: Yes Allergies-Medications (Allergen,Severity, Reaction): Coded Allergies: No Known Allergies (Unverified , 09/24/16) Reported Meds & Prescriptions Reported Meds & Active Scripts Active Prednisone (48) 10 mg tab Dose Pack (Prednisone) 10 Mg Dspk 10 Mg PO DIRECTED Zithromax Z-Rishabh (Azithromycin) 250 Mg Dspk 250 Mg PO DIRECTED 500 MG (2 tabs) day 1, then 1 tab days 2-5. Albuterol Neb (Albuterol Sulfate) 2.5 Mg/3 Ml Neb 2.5 Mg NEB Q4HR NEB PRN Duoneb (Ipratropium-Albuterol Neb) 0.5-2.5 Mg/3 Ml Neb 1 Nebule INH Q6HR NEB Reported Metoprolol Tartrate 50 Mg Tab 50 Mg PO BID Spiriva Handihaler (Tiotropium Inh) 18 Mcg Cap 18 Mcg INH DAILY 1 capsule = 18 mcg Multiple Vitamin 1 Tab 1 Tab PO DAILY Proair Hfa 8.5 GM Inh (Albuterol Sulfate) 90 Mcg/Act Aer 2 Puff INH Q6H PRN 108 mcg/actuation Symbicort Inh (Budesonide/Formoterol Fumarate) 160-4.5 Mcg/Act Aero 2 Puff INH Q12HR Lisinopril-Hctz 10-12.5 Mg Tab 1 Tab PO DAILY Review of Systems Except as stated in HPI: all other systems reviewed are Neg General / Constitutional: Positive: Fever, No: Chills HENT: Positive: Sore Throat, Congestion Cardiovascular: No: Chest Pain or Discomfort Respiratory: Positive: Cough, Shortness of Breath Gastrointestinal: Positive: Nausea, No: Vomiting, Diarrhea, Abdominal Pain Genitourinary: No: Urgency, Frequency, Dysuria Musculoskeletal: Positive: Myalgias Skin: No Rash Neurologic: Positive: Weakness, Dizziness Psychiatric: No: Depression, Suicidal Ideations Physical Exam Narrative GENERAL: This patient is in respiratory distress. SKIN: Warm and dry. HEAD: Atraumatic. Normocephalic. EYES: Pupils equal and round. Extraocular movements are intact. ENT: No nasal bleeding or discharge. Mucous membranes pink and moist. NECK: Trachea midline. Neck is supple. CARDIOVASCULAR: Regular rate and rhythm. Heart sounds are normal. RESPIRATORY: Diminished breath sounds. Increased work of breathing. Initially tachypneic at 40. GASTROINTESTINAL: Abdomen soft, non-tender, nondistended. MUSCULOSKELETAL: No obvious deformities. No edema. NEUROLOGICAL: Awake and alert. No obvious cranial nerve deficits. Motor grossly within normal limits. Normal speech. PSYCHIATRIC: Appropriate mood and affect; insight and judgment normal. Data Data Last Documented VS Vital Signs Date Time Temp Pulse Resp B/P Pulse Ox O2 Delivery O2 Flow Rate FiO2 09/24/16 21:20 95 Nasal Cannula 3.00 09/24/16 20:40 105 24 151/89 09/24/16 20:20 35 Orders Complete Blood Count With Diff (09/24/16 20:28) Comprehensive Metabolic Panel (09/24/16 20:28) B-Type Natriuretic Peptide (09/24/16 20:28) Magnesium (Mg) (09/24/16 20:28) Ckmb (Isoenzyme) Profile (09/24/16 20:28) Troponin I (09/24/16 20:28) Arterial Blood Gas (Abg) (09/24/16 20:28) Blood Culture (09/24/16 20:28) Iv Access Insert/Monitor (09/24/16 20:28) Electrocardiogram (09/24/16 20:28) Ecg Monitoring (09/24/16 20:28) Oximetry (09/24/16 20:28) Oxygen Administration (09/24/16 20:28) Chest, Single Ap (09/24/16 20:28) Sodium Chloride 0.9% Flush (Ns Flush) (09/24/16 20:30) Resp Bipap / Cpap Non Invas Vt (09/24/16 20:28) CKMB (09/24/16 20:30) CKMB% (09/24/16 20:30) Albuterol-Ipratropium Neb (Duoneb Neb) (09/24/16 22:00) Labs Laboratory Tests Test 09/24/16 09/24/16 20:20 20:30 Blood Gas Puncture Site RT RADIAL Blood Gas Patient Temperature 98.6 Blood Gas HCO3 23 mmol/L Blood Gas Base Excess -1.8 mmol/L Blood Gas Oxygen Saturation 96 % Arterial Blood pH 7.37 Arterial Blood Partial 40 mmHg Pressure CO2 Arterial Blood Partial 105 mmHG Pressure O2 Arterial Blood Oxygen Content 19.9 Vol % Arterial Blood 0.9 % Carboxyhemoglobin Arterial Blood Methemoglobin 0.6 % Blood Gas Hemoglobin 14.6 G/DL Oxygen Delivery Device BIPAP Blood Gas Ventilator Setting IPAP=12 EPAP=6 Blood Gas Inspired Oxygen 35 % White Blood Count 12.6 TH/MM3 Red Blood Count 4.79 MIL/MM3 Hemoglobin 14.1 GM/DL Hematocrit 43.4 % Mean Corpuscular Volume 90.5 FL Mean Corpuscular Hemoglobin 29.3 PG Mean Corpuscular Hemoglobin 32.4 % Concent Red Cell Distribution Width 12.9 % Platelet Count 292 TH/MM3 Mean Platelet Volume 8.6 FL Neutrophils (%) (Auto) 69.0 % Lymphocytes (%) (Auto) 20.5 % Monocytes (%) (Auto) 6.6 % Eosinophils (%) (Auto) 2.5 % Basophils (%) (Auto) 1.4 % Neutrophils # (Auto) 8.7 TH/MM3 Lymphocytes # (Auto) 2.6 TH/MM3 Monocytes # (Auto) 0.8 TH/MM3 Eosinophils # (Auto) 0.3 TH/MM3 Basophils # (Auto) 0.2 TH/MM3 CBC Comment DIFF FINAL Differential Comment Sodium Level 141 MEQ/L Potassium Level 3.7 MEQ/L Chloride Level 109 MEQ/L Carbon Dioxide Level 22.2 MEQ/L Anion Gap 10 MEQ/L Blood Urea Nitrogen 14 MG/DL Creatinine 1.02 MG/DL Estimat Glomerular Filtration 56 ML/MIN Rate Random Glucose 90 MG/DL Calcium Level 9.1 MG/DL Magnesium Level 2.2 MG/DL Total Bilirubin 0.4 MG/DL Aspartate Amino Transf 38 U/L (AST/SGOT) Alanine Aminotransferase 38 U/L (ALT/SGPT) Alkaline Phosphatase 94 U/L Total Creatine Kinase 239 U/L Creatine Kinase MB 5.0 NG/ML Creatine Kinase MB % 2.1 % Troponin I 0.03 NG/ML B-Type Natriuretic Peptide 55 PG/ML Total Protein 7.4 GM/DL Albumin 3.8 GM/DL MDM Medical Decision Making Medical Screen Exam Complete: Yes Emergency Medical Condition: Yes Interpretation(s) EKG shows a sinus rhythm with a ventricular rate of 109. No ST segment elevation or depression. EKG is unchanged from previous. Differential Diagnosis Differential diagnosis of dyspnea includes but is not limited to congestive heart failure, pneumonia, wheezing, pneumothorax, pulmonary embolism Narrative Course Patient presents by [facility] with dyspnea. She had received 5 nebulizer treatments prior to arrival along with Solu-Medrol 125 mg IV. The patient was improved but still in distress. The patient was placed on BiPAP immediately on arrival here. Her work of breathing and is improving and her respiratory rate is decreasing. Subjectively , she is feeling better. CXR: A single view of the chest demonstrates the lungs to be symmetrically aerated without evidence of mass, infiltrate or effusion. The cardiomediastinal contours are unremarkable. Osseous structures are intact. The chest x-ray was independently viewed by me. ABG Test 09/24/16 20:20 Blood Gas HCO3 23 mmol/L Blood Gas Base Excess -1.8 mmol/L Blood Gas Oxygen Saturation 96 % Arterial Blood pH 7.37 L Arterial Blood Partial 40 mmHg Pressure CO2 Arterial Blood Partial 105 mmHG Pressure O2 Arterial Blood Oxygen Content 19.9 Vol % Arterial Blood 0.9 % Carboxyhemoglobin Arterial Blood Methemoglobin 0.6 % Blood Gas Hemoglobin 14.6 G/DL Oxygen Delivery Device BIPAP Blood Gas Ventilator Setting IPAP=12 EPAP=6 Blood Gas Inspired Oxygen 35 % 9:15 PM Patient has good color. She is not having any respiratory difficulty at this time. She has good air movement with coarse wheezing throughout. She states that this is about her baseline. We will attempt to get her off of BiPAP. CBC Diagram 09/24/16 20:30 BMP Diagram 09/24/16 20:30 10 PM The patient is wanting to go home. However, she is still on oxygen and her oxygen sat is only 90% on oxygen. She is hungry. I will allow her to eat. We will give her another set of stacked nebs. We will then reassess the situation. 11 PM The patient has eaten. Her sats are now 100% on 2 L of oxygen. The oxygen has been discontinued. 11:25 PM Sats and held in the mid 90s. The patient will be discharged. Critical Care Narrative Aggregate critical care time was 60 minutes. Time to perform other separately billable procedures was not included in the critical care time. My time did not include minutes spent treating any other patients simultaneously or on activities that did not directly contribute to the patient's treatment. The services I provided to this patient were to treat and/or prevent clinically significant deterioration due to respiratory distress I provided critical care services requiring my management, as noted below: Chart data review, documentation time, medication orders and management, vital sign assessments/reviewing monitor data, ordering and reviewing lab tests, ordering and interpreting/reviewing x-rays and diagnostic studies, care of the patient and discussion of the patient with the admitting physicians Diagnosis Primary Impression: Respiratory distress determined by examination Additional Impression: COPD with exacerbation Patient Instructions: Asthma (DC), General Instructions Med/Other Pt SpecificInfo: Prescription(s) given Scripts Prednisone (48) 10 mg tab Dose Pack 10 Mg Dspk10 Mg PO DIRECTED #1 DSPK Ref 0 Prov:Danitza Tran MD 09/24/16 Disposition: 01 DISCHARGE HOME Condition: Stable Danitza Tran MD Sep 24, 2016 20:35
[2016-09-24 20:40] VITALS: BP 151/89; PULSE 105; RESP 24; O2SAT 96
[2016-09-24] MEDS ORDERED: METO50TA PO (20:49)
--- NOTE | 2016-09-24 21:09 | RADRPT ---
EXAM DATE/TIME: 09/24/2016 20:39 [facility] COMPARISON: CHEST SINGLE AP, August 23, 2016, 5:06. INDICATIONS : Short of breath. MEDICAL HISTORY : Chronic obstructive pulmonary disease. SURGICAL HISTORY : None. ENCOUNTER: Initial ACUITY: >1 year PAIN SCORE: 0/10 LOCATION: Bilateral chest FINDINGS: A single view of the chest demonstrates the lungs to be symmetrically aerated without evidence of mas s, infiltrate or effusion. The cardiomediastinal contours are unremarkable. Osseous structures are intact. CONCLUSION: No acute disease. Jay Jay Burgess MD on September 24, 2016 at 21:07 Board Certified Radiologist. This report was verified electronically.
[2016-09-24 21:14] LABS: AUTOMATED NEUTROPHIL # 8.7 TH/MM3 (1.8-7.7); BASOPHIL # 0.2 TH/MM3 (0-0.2); BASOPHIL % 1.4 % (0.0-2.0); EOSINOPHIL # 0.3 TH/MM3 (0-0.4); EOSINOPHIL % 2.5 % (0.0-4.0); HEMATOCRIT 43.4 % (35.0-46.0); HEMO FLAGS DIFF FINAL; LYMPH % 20.5 % (9.0-44.0); LYMPHOCYTE # 2.6 TH/MM3 (1.0-4.8); MEAN CELL VOLUME 90.5 FL (80.0-100.0); MEAN CORPUSCULAR HEMOGLOBIN 29.3 PG (27.0-34.0); MEAN CORPUSCULAR HGB CONC 32.4 % (32.0-36.0); MONO % 6.6 % (0.0-8.0); PLATELET COUNT 292 TH/MM3 (150-450); RED BLOOD COUNT 4.79 MIL/MM3 (4.00-5.30); RED CELL DISTRIBUTION WIDTH 12.9 % (11.6-17.2); WHITE BLOOD COUNT 12.6 TH/MM3 (4.0-11.0)
[2016-09-24 21:20] VITALS: O2SAT 95
[2016-09-24 21:41] LABS: ALT (GPT) 38 U/L (10-53); ANION GAP 10 MEQ/L (5-15); AST (GOT) 38 U/L (15-37); BICARBONATE 22.2 MEQ/L (21.0-32.0); BLOOD UREA NITROGEN 14 MG/DL (7-18); CHLORIDE 109 MEQ/L (98-107); GLOMERULAR FILTRATION RATE 56 ML/MIN (>89); MAGNESIUM 2.2 MG/DL (1.5-2.5); POTASSIUM 3.7 MEQ/L (3.5-5.1); SODIUM (NA) 141 MEQ/L (136-145)
[2016-09-24 21:45] LABS: ALKALINE PHOSPHATASE 94 U/L (45-117); CREATINE KINASE 239 U/L (26-192); TOTAL BILIRUBIN ADULT 0.4 MG/DL (0.2-1.0)
--- NOTE | 2016-09-24 21:45 | EKG ---
Date Performed: 09/24/2016 Time Performed: 20:49:36 PTAGE: 56 years EKG: SINUS TACHYCARDIA WITH SHORT OK INTERVAL ABNORMAL RHYTHM ECG Compared to prior electrocardi ogram, rate has increased DOCTOR: Tanner Orozco Interpretating Date/Time 09/24/2016 21:44:35
[2016-09-24] MEDS ORDERED: PRED10PA2 PO (23:11)
[2016-09-24] MEDS: RESP: ALBUTEROL 2.5 MG/IPRATROPIUM 0.5 MG NEB (SCH) INH (23:19)
[2016-09-25] MEDS ORDERED: ALBUTEROL SULFATE 90 MCG/ACT HFA 8 GM INHALER INH SCH
[2016-09-25] MEDS ORDERED: ALBUTEROL SULFATE 90 MCG/ACT HFA 18 GM INHALER INH SCH
== END 2016-09-25 | disposition home or self-care (01) ==
LOC: NEPE 20:18
DX: J44.1 Chronic obstructive pulmonary disease with (acute) exacerbation (principal); R11.0 Nausea; R53.1 Weakness; R42 Dizziness and giddiness; I10 Essential (primary) hypertension; Z79.51 Long term (current) use of inhaled steroids; Z79.899 Other long term (current) drug therapy; Z72.0 Tobacco use
CPT/HCPCS: 36600; 71010; 80053; 82550; 82552; 82805; 83735; 83880; 84484; 85025; 87040; 93005; 94640; 94664; 99291

== ENCOUNTER 2016-09-25 05:56 | Inpatient (IN) | payer OTHER ==
[2016-09-25] VITALS (19 sets, daily range): BP systolic 98–186; BP diastolic 64–99; PULSE 73–115; RESP 14–32; TEMP 98.3–99; O2SAT 95–99
[~2016-09-25] VITALS: Ht 154.9 cm; Wt 64.6 kg
[~2016-09-25 05:56] MED LIST changes: +METO50TA PO; -PRED-503 PO; +PRED10PA2 PO
[2016-09-25] MEDS ORDERED: MORPHINE SULFATE 8 MG/ML INJ IV PUSH ONE (06:00)
[2016-09-25] MEDS ORDERED: NALOXONE HCL 0.4 MG/ML AMP IV PRN (06:15)
--- NOTE | 2016-09-25 06:17 | PD ---
HPI . Dyspnea Chief Complaint: Respiratory Distress Time Seen by Provider: 05:58 Travel History International Travel<30 days: No Contact w/Intl Traveler<30days: No Traveled to known affect area: No History of Present Illness HPI Patient presents to us via [facility] in respiratory distress. The patient was seen here earlier tonight and was treated with BiPAP for a while. She was given stacked nebs and S2. She had been treated by EMS with Solu-Medrol. The patient wanted to go home. After several hours of treatment, she was allowed to leave. She was discharged with a prescription for a steroid taper. She was also given a new albuterol inhaler. She comes back just a few hours later in respiratory distress again. She will not be allowed to go home this time. PFSH Past Medical History Asthma: Yes Cardiovascular Problems: Yes (htn) COPD: Yes Hypertension: Yes Respiratory: Yes (copd) Menopausal: Yes Tubal Ligation: Yes Social History Alcohol Use: No Tobacco Use: No Substance Use: No Allergies-Medications (Allergen,Severity, Reaction): Coded Allergies: No Known Allergies (Unverified , 09/24/16) Reported Meds & Prescriptions Reported Meds & Active Scripts Active Prednisone (48) 10 mg tab Dose Pack (Prednisone) 10 Mg Dspk 10 Mg PO DIRECTED Zithromax Z-Rishabh (Azithromycin) 250 Mg Dspk 250 Mg PO DIRECTED 500 MG (2 tabs) day 1, then 1 tab days 2-5. Albuterol Neb (Albuterol Sulfate) 2.5 Mg/3 Ml Neb 2.5 Mg NEB Q4HR NEB PRN Duoneb (Ipratropium-Albuterol Neb) 0.5-2.5 Mg/3 Ml Neb 1 Nebule INH Q6HR NEB Reported Metoprolol Tartrate 50 Mg Tab 50 Mg PO BID Spiriva Handihaler (Tiotropium Inh) 18 Mcg Cap 18 Mcg INH DAILY 1 capsule = 18 mcg Multiple Vitamin 1 Tab 1 Tab PO DAILY Proair Hfa 8.5 GM Inh (Albuterol Sulfate) 90 Mcg/Act Aer 2 Puff INH Q6H PRN 108 mcg/actuation Symbicort Inh (Budesonide/Formoterol Fumarate) 160-4.5 Mcg/Act Aero 2 Puff INH Q12HR Lisinopril-Hctz 10-12.5 Mg Tab 1 Tab PO DAILY Review of Systems Except as stated in HPI: all other systems reviewed are Neg General / Constitutional: No: Fever, Chills Respiratory: Positive: Shortness of Breath, Wheezing Physical Exam Narrative GENERAL: She is in marked respiratory distress. She is also extremely anxious. SKIN: Warm and dry. HEAD: Atraumatic. Normocephalic. EYES: Pupils equal and round. Extraocular movements are intact. ENT: No nasal bleeding or discharge. Mucous membranes pink and moist. NECK: Trachea midline. Neck is supple. CARDIOVASCULAR: Sinus tachycardia. RESPIRATORY: She is in respiratory distress. She is very tight. She has diffuse inspiratory and expiratory wheezes. GASTROINTESTINAL: Abdomen soft, non-tender, nondistended. MUSCULOSKELETAL: No obvious deformities. No edema. NEUROLOGICAL: Awake and alert. No obvious cranial nerve deficits. Motor grossly within normal limits. Normal speech. PSYCHIATRIC: Appropriate mood and affect; insight and judgment normal. Data Data Last Documented VS Vital Signs Date Time Temp Pulse Resp B/P Pulse Ox O2 Delivery O2 Flow Rate FiO2 09/25/16 05:59 98.3 115 28 141/87 98 09/25/16 05:45 50 Orders Morphine Inj (Morphine Inj) (09/25/16 06:00) [facility] Medical Decision Making Medical Screen Exam Complete: Yes Emergency Medical Condition: Yes Differential Diagnosis Differential diagnosis of dyspnea includes but is not limited to congestive heart failure, pneumonia, wheezing, pneumothorax, pulmonary embolism Narrative Course Patient presents in respiratory distress. She was here earlier tonight to exacerbation of COPD. She was treated prior to her first presentation with 5 nebs and Solu-Medrol. While in the emergency department, she had a total of 6 more nebs. She was on BiPAP for a period of time. She was anxious to go home and was allowed to leave. She returned just a few hours later for distress again. EMS gave her 2 nebs and IV magnesium en route. She was given Ativan, 2 mg for anxiety. The patient was immediately placed back on BiPAP on arrival here. She was given morphine. Her work of breathing is improving. Diagnosis Primary Impression: Respiratory distress determined by examination Additional Impression: COPD with exacerbation Admitting Information Admitting Physician Requests: Admit Condition: Stable Danitza Tran MD Sep 25, 2016 06:17
--- NOTE | 2016-09-25 06:29 | HHI.HP ---
[facility] Unknown Admission Diagnosis resp distress, COPD Diagnoses: Travel History International Travel<30 Days: No Contact w/Intl Traveler <30 Da: No Traveled to Known Affected Are: No History of Present Illness History from patient, ER physician communication, and review of medical records. Patient is somewhat of a poor historian as she is in acute respiratory distress and on BiPAP at the time of my examination. She is able to answer questions by stating yes or no. Whenever she tries to talk, she does get tired and also the BiPAP sounds muffled her voice. Has been short of breath for the past 2 or 3 days. She does admit to having cough. Also had subjective fevers for the past few days. Also reports of nausea. Apart from that, patient denies any vomiting/diarrhea/urinary burning or pain on urination. Denies any hematemesis/hematochezia/melena/hematuria. Denies any chest pains/palpitations/focal weakness. Denies any passing out episodes. She does report of history of COPD and asthma. On review of medical records, patient does have history of COPD and was intubated with prolonged ICU stay August 2015 Patient initially came to the emergency room and was discharged. She did not make it at home even few hours and was in acute respiratory distress requiring her to come back then. She was given Solu-Medrol, and Ativan by EMS. The time of my exam, after evaluation, I have also given her Ativan 0.5 mg IV. Solu-Medrol 125 mg IV 1. Review of Systems Psychiatric: COMPLAINS OF: Suicidal Ideation Except as stated in HPI: all other systems reviewed are Neg Past Family Social History Past Medical History htn copd asthma Past Surgical History None per Patient Reported Medications none at present. Patient's medical reconciliation was done on the computer. According to her nurse, patient was awake and alert on her first visit to ER [facility] and was able to recall the names and doses of her medications. Allergies: Coded Allergies: No Known Allergies (Unverified , 09/24/16) Family History Denies any family history of medical issues. Social History Consult Physical Exam Vital Signs Vital Signs Date Time Temp Pulse Resp B/P Pulse Ox O2 Delivery O2 Flow Rate FiO2 09/25/16 06:08 30 98 BiPAP 100 09/25/16 05:59 98.3 115 28 141/87 98 09/25/16 05:45 97 50 Physical Exam GENERAL: This is a middle-aged lady, in acute distress on BiPAP. Respiratory rate around 35. Only able to complete short sentences. On BiPAP. Heart rate is around 146/80. SKIN: No rashes, ecchymoses or lesions. Cool and dry. HEAD: Atraumatic. Normocephalic. No temporal or scalp tenderness. EYES: No scleral icterus. No injection or drainage. ENT: Nose without bleeding, purulent drainage or septal hematoma. Airway patent. NECK: Trachea RESPIRATORY: Clear to auscultation. Breath sounds equal bilaterally. No wheezes , rales, or rhonchi. GASTROINTESTINAL: Abdomen soft, non-tender, nondistended. No hepato-splenomegaly , or palpable masses. No guarding. MUSCULOSKELETAL: Extremities without clubbing, cyanosis, or edema. No calf tenderness. NEUROLOGICAL: Awake and alert. Motor and sensory grossly within normal limits. Normal speech. Laboratory Labs done earlier last night ER visit reviewed Imaging Chest x-raydone last night ER visit. Personally reviewed. No acute evidence of acute infiltrates/pulmonary congestion/pneumothorax. Assessment and Plan Assessment and Plan Impression: COPD exacerbation. Hypoxic respiratory failurerecurrent BiPAP. Possible underlying anxiety as well. Possible pneumonia Plan: Continue BiPAP. Solu-Medrol 40 mg IV every 6 hours. Duo nebs every 6 hours scheduled. Duo nebs g labs every 2 hours when necessary. Resume home meds. DVT prophylaxiswith Lovenox. GI prophylaxis on pantoprazole. Admit patient to ICU for close monitoring. Critical care time 30 minutes. Discussed Condition With Patient, ER physician, patient's nurse Physician Certification 2 Midnight Certification Type: Admission for Inpatient Services Order for Inpatient Services The services are ordered in accordance with Medicare regulations or non- Medicare payer requirements, as applicable. In the case of services not specified as inpatient-only, they are appropriately provided as inpatient services in accordance with the 2-midnight benchmark. Estimated LOS (days): 4 days is the estimated time the patient will need to remain in the hospital, assuming treatment plan goals are met and no additional complications. Post-Hospital Plan: Home Ej Ferraro MD Sep 25, 2016 06:29
[2016-09-25] MEDS ORDERED: LORazepam 2 MG/ML VIAL IV PUSH ONE (06:30)
[2016-09-25] MEDS: methylPREDNISolone SOD SUCC 40 MG/1 ML VIAL IV PUSH SCH ×2 (06:38→11:13)
[2016-09-25] MEDS: SODIUM CHLORIDE 0.9% FLUSH 10 ML FLUSH IV FLUSH SCH ×2 (07:42→19:41)
[2016-09-25] MEDS: PANTOPRAZOLE SODIUM 40 MG VIAL IV PUSH SCH (07:42)
[2016-09-25] MEDS: LISINOPRIL 10 MG TAB PO SCH (08:32)
[2016-09-25] MEDS: HYDROCHLOROTHIAZIDE 25 MG TAB PO SCH (08:32)
[2016-09-25] MEDS: METOPROLOL TARTRATE 50 MG TAB PO SCH ×2 (08:32→19:41)
[2016-09-25] MEDS: LEVOFLOXACIN 750 MG PREMIX INJ 150 ML IV SCH (08:33)
[2016-09-25] MEDS ORDERED: NON-FORMULARY DRUG (Lisinopril-Hctz 1 TAB) PO SCH (09:00)
[2016-09-25] MEDS: RESP: ALBUTEROL 2.5 MG/IPRATROPIUM 0.5 MG NEB (PRN) NEB ×3 (09:01→14:28)
[2016-09-25] MEDS ORDERED: RESP: ALBUTEROL 2.5 MG/IPRATROPIUM 0.5 MG NEB (SCH) NEB (10:00)
[2016-09-25] MEDS: INSULIN NovoLIN REGULAR SUPPLEMENTAL SCALE SQ SCH ×2 (12:00→18:00)
[2016-09-25] MEDS ORDERED: GLUCAGON 1 MG/ML VIAL OTHER PRN (12:45)
[2016-09-25] MEDS: TIOTROPIUM BROMIDE 18 MCG INH INH SCH (12:45)
[2016-09-25] MEDS ORDERED: DEXTROSE 50% IN WATER 50 ML VIAL(D50) IV PRN (12:45)
[2016-09-25] MEDS ORDERED: methylPREDNISolone SOD SUCC 125 MG/2 ML VIAL IV SCH (13:00)
[2016-09-25 13:02] LABS: BLOOD GAS BASE EXCESS -2.3 mmol/L (-2-2); BLOOD GAS CARBOXYHEMOGLOBIN 0.5 % (0-4); BLOOD GAS HCO3 23 mmol/L (22-26); BLOOD GAS METHEMOGLOBIN 0.6 % (0-2); BLOOD GAS O2 HGB SATURATION 99 % (90-100); BLOOD GAS OXYGEN CONTENT 19.7 Vol % (12.0-20.0); BLOOD GAS PCO2 50 mmHg (38-42); BLOOD GAS PO2 252 mmHG (61-120); BLOOD GAS TOTAL HGB 13.8 G/DL (12.0-16.0); TEMP CORR TO 98.6
[2016-09-25 13:03] LABS: CRITICAL VALUE YES; DRAW SITE RT RADIAL; FIO2 50 %; NUMBER OF ARTERIAL PUNCTURES 1; OXYGEN DEVICE BiPAP; STAT YES; ULNAR PULSE PRESENT; VENT SETTINGS IPAP12/EPAP5
[2016-09-25 13:40] LABS: AUTOMATED NEUTROPHIL # 12.1 TH/MM3 (1.8-7.7); BASOPHIL % 0.3 % (0.0-2.0); HEMATOCRIT 40.3 % (35.0-46.0); HEMO FLAGS DIFF FINAL; LYMPH % 2.5 % (9.0-44.0); LYMPHOCYTE # 0.3 TH/MM3 (1.0-4.8); MEAN CELL VOLUME 91.3 FL (80.0-100.0); MEAN CORPUSCULAR HEMOGLOBIN 29.8 PG (27.0-34.0); MEAN CORPUSCULAR HGB CONC 32.6 % (32.0-36.0); MONO % 1.7 % (0.0-8.0); NEUT % 95.5 % (16.0-70.0); PLATELET COUNT 287 TH/MM3 (150-450); RED BLOOD COUNT 4.41 MIL/MM3 (4.00-5.30); RED CELL DISTRIBUTION WIDTH 13.1 % (11.6-17.2); WHITE BLOOD COUNT 12.7 TH/MM3 (4.0-11.0)
[2016-09-25 14:03] LABS: ALT (GPT) 39 U/L (10-53); ANION GAP 8 MEQ/L (5-15); AST (GOT) 34 U/L (15-37); BICARBONATE 23.6 MEQ/L (21.0-32.0); BLOOD UREA NITROGEN 12 MG/DL (7-18); CHLORIDE 106 MEQ/L (98-107); GLOMERULAR FILTRATION RATE 78 ML/MIN (>89); MAGNESIUM 2.4 MG/DL (1.5-2.5); POTASSIUM 4.4 MEQ/L (3.5-5.1); SODIUM (NA) 138 MEQ/L (136-145)
[2016-09-25 14:04] LABS: ALKALINE PHOSPHATASE 83 U/L (45-117); TOTAL BILIRUBIN ADULT 0.3 MG/DL (0.2-1.0)
[2016-09-25] MEDS ORDERED: methylPREDNISolone SOD SUCC 125 MG/2 ML VIAL ONE (14:15)
--- NOTE | 2016-09-25 14:15 | RADRPT ---
EXAM DATE/TIME: 09/25/2016 13:01 [facility] COMPARISON: CHEST SINGLE AP, September 24, 2016, 20:39. INDICATIONS : Chest pain and shortness of breath. MEDICAL HISTORY : Chronic obstructive pulmonary disease. Bronchitis. Asthma. SURGICAL HISTORY : None. ENCOUNTER: Initial ACUITY: 1 day PAIN SCORE: 5/10 LOCATION: Bilateral chest FINDINGS: A single view of the chest demonstrates the lungs to be symmetrically aerated without evidence of mas s, infiltrate or effusion. The cardiomediastinal contours are unremarkable. Osseous structures are intact. CONCLUSION: 1. No acute cardiopulmonary disease. Rodolfo Gallegos MD on September 25, 2016 at 14:13 Board Certified Radiologist. This report was verified electronically.
[2016-09-25] MEDS ORDERED: ETOMIDATE 20 MG/10 ML VIAL ONE (14:16)
[2016-09-25] MEDS ORDERED: PROPOFOL 1000 MG/100 ML INJ 100 ML ONE (14:24)
[2016-09-25] MEDS ORDERED: MAGNESIUM SULFATE 1 GM PREMIX 100 ML ONE (14:26)
[2016-09-25] MEDS: RESP: BUDESONIDE 0.5 MG/2 ML NEB NEB SCH ×2 (14:28→20:27)
--- NOTE | 2016-09-25 14:59 | MB ---
cc: JEFFREY RICHARDSON M.D. DATE OF CONSULTATION: 09/25/2016. REASON FOR CONSULTATION: HISTORY OF PRESENT ILLNESS: The patient is a 56-year-old female with past medical history of COPD and hypertension who presented to the [facility] ED with a 2-week history of progressive shortness of breath. In addition, she reports a dry cough and wheezing. The patient denies any constitutional symptoms. In addition she denies any nausea, vomiting, or abdominal pain. No history of orthopnea, PND or edema of lower extremities. She denies any use of oxygen at home; however, she uses nebulizers and is on Symbicort. In the ED the patient was given IV steroids and bronchodilator treatments. She was in the ER last night with the same presentation and after several hours of treatments she was discharged with a prescription for a tapered dose of prednisone. In addition, she was given a new albuterol inhaler. She came back a few hours later in respiratory distress. A chest x-ray from last night showed no acute disease. No laboratory data or blood gases available today; however, ABG from last night on a BiPAP 12/6 with 35% FIO2 showed a pH of 7.37, CO2 40, pAO2 of 105, bicarb 23 and saturation of 96%. PAST MEDICAL HISTORY: Past medical history significant for: 1. COPD. 2. Hypertension. PAST SURGICAL HISTORY: Tubal ligation many years ago. SOCIAL HISTORY: Nondrinker. Ex-smoker, used to smoke a pack per day for 40 years. ALLERGIES: NO KNOWN DRUG ALLERGIES. FAMILY HISTORY: Noncontributory. MEDICATIONS: Reported medications include: 1. Prednisone. 2. Lisinopril. 3. DuoNeb. 4. Spiriva. 5. Albuterol. 6. Metoprolol. 7. Symbicort. 8. Azithromycin. REVIEW OF SYSTEMS: The review of systems is as per the history of present illness, and the rest of the review of systems is unremarkable. PHYSICAL EXAMINATION: GENERAL: A 56-year-old female sitting up in bed in mild respiratory distress on BiPAP. VITAL SIGNS: Afebrile with temperature of 98.3, pulse of 101, saturation 98%, blood pressure 186/99 on BiPAP 12/5 with 50% FIO2. HEAD, EYES, EARS, NOSE, THROAT: Normocephalic and atraumatic. Pupils equal, round and reactive to light and accommodation. Extraocular muscles intact. Conjunctivae are pink. Nonicteric sclerae. Oral mucosa within normal limits. NECK: The neck is supple. No jugular venous distention, adenopathy or thyromegaly. Trachea in the midline. CARDIOVASCULAR: Tachycardic. Normal S1-S2. No murmurs, rubs or gallops noted. PULMONARY: Bilateral equal air entry with diffuse coarse breath sounds. Scattered wheezing. ABDOMEN: The abdomen is soft, nontender and no distention. Positive bowel sounds. EXTREMITIES: No cyanosis, clubbing or edema. NEUROLOGIC: No focal sensory deficit. LABORATORY DATA AND RADIOGRAPHIC STUDIES: None available. Chest x-ray from last night showed no evidence of any acute cardiopulmonary disease. IMPRESSION: 1. Acute hypoxemic respiratory insufficiency. 2. COPD exacerbation. 3. Hypertension. 4. History of tobacco abuse. RECOMMENDATIONS: 1. The patient is being admitted to the ICU for close observation. 2. Monitor neuro status closely and avoid any sedatives. 3. Continue with oxygen and maintain sats above 92%. 4. Bronchodilators in the form of DuoNeb q. 4 plus q. 2 p.r.n. for shortness of breath. In addition, we will start Pulmicort nebulizers q. 12, Spiriva one cap daily. 5. Will check a chest x-ray and ABG now. 6. If there is any worsening in clinical status will proceed with intubation and mechanical ventilation. 7. Continue with noninvasive positive pressure ventilation for respiratory distress. 8. Consult pulmonary service as she will need outpatient followup. In addition, she will need pulmonary function tests to assess the severity of her obstructive lung disease. 9. Monitor heart rate and blood pressure closely and maintain MAP greater 65 mmHg. 10. IV steroids in the form of Solu-Medrol 80 mg IV q. 8. 11. Continue with antihypertensive meds. She was placed on hydrochlorothiazide 12.5 milligrams daily. Lopressor 50 milligrams twice a day. 12. Monitor renal function, intake and output and electrolyte replacement as needed. 13. Keep n.p.o. for now until her respiratory status improves. 14. Continue with Protonix 40 milligrams IV daily. 15. Continue with empiric antibiotics. She was placed on Levaquin by the primary team. 16. Monitor for signs of infection which includes fever and WBC. 17. Place on sliding scale insulin with Accu-Cheks q. 4 hours for glycemic control as patient is on IV steroids. 18. Monitor CBC. 19. GI prophylaxis with Protonix 40 mg daily and DVT prophylaxis with SCDs and Lovenox 40 mg subcu daily. Further recommendations will be based on the hospital course. LEVEL: Level 4. MD BRENDAN An/TEODORA /12:40 PM /2:28 PM
[2016-09-25] MEDS ORDERED: SODIUM CHLOR 0.9% 1000 ML INJ 1,000 ML IV ONE ×3 (15:00→21:00)
[2016-09-25] MEDS: PROPOFOL 1000 MG/100 ML INJ 100 ML IV SCH ×2 (15:08→20:22)
[2016-09-25] MEDS: SODIUM CHLOR 0.9% 1000 ML INJ 1,000 ML IV SCH (15:08)
--- NOTE | 2016-09-25 15:13 | RADRPT ---
EXAM DATE/TIME: 09/25/2016 14:37 [facility] COMPARISON: CHEST SINGLE AP, September 25, 2016, 13:01. INDICATIONS : Et tube placement. MEDICAL HISTORY : Chronic obstructive pulmonary disease. SURGICAL HISTORY : None. ENCOUNTER: Subsequent ACUITY: 3 days PAIN SCORE: Non-responsive. LOCATION: Bilateral chest FINDINGS: ET tube is at the joel. The lungs are clear. The heart and pulmonary vascularity are normal. The p ortion of the bony skeleton visualized is unremarkable. CONCLUSION: ET at the joel. Rico Boston MD FACR on September 25, 2016 at 15:11 Board Certified Radiologist. This report was verified electronically.
[2016-09-25] MEDS ORDERED: methylPREDNISolone SOD SUCC 125 MG/2 ML VIAL IV PUSH ONE (15:15)
[2016-09-25] MEDS: ENOXAPARIN SODIUM 40 MG/0.4 ML SYRINGE SQ SCH (15:27)
[2016-09-25] MEDS: fentaNYL 2,500 MCG/NS 250 ML IV SCH (15:50)
[2016-09-25] MEDS: RESP: ALBUTEROL 2.5 MG/IPRATROPIUM 0.5 MG NEB (SCH) NEB ×2 (16:13→20:27)
[2016-09-25 17:07] LABS: BLOOD GAS BASE EXCESS -5.5 mmol/L (-2-2); BLOOD GAS CARBOXYHEMOGLOBIN 0.6 % (0-4); BLOOD GAS HCO3 22 mmol/L (22-26); BLOOD GAS METHEMOGLOBIN 1.4 % (0-2); BLOOD GAS O2 HGB SATURATION 98 % (90-100); BLOOD GAS OXYGEN CONTENT 18.8 Vol % (12.0-20.0); BLOOD GAS PCO2 63 mmHg (38-42); BLOOD GAS PO2 538 mmHg (61-120); BLOOD GAS TOTAL HGB 12.7 G/DL (12.0-16.0); CRITICAL VALUE YES; OXYGEN DEVICE VENTILATOR; TEMP CORR TO 98.6
[2016-09-25 17:08] LABS: DRAW SITE RT RADIAL; FIO2 100 %; NUMBER OF ARTERIAL PUNCTURES 1; STAT NO; ULNAR PULSE PRESENT
[2016-09-25] MEDS: methylPREDNISolone SOD SUCC 125 MG/2 ML VIAL IV SCH (18:12)
[2016-09-25 18:50] LABS: BLOOD GAS BASE EXCESS -5.4 mmol/L (-2-2); BLOOD GAS CARBOXYHEMOGLOBIN 1.1 % (0-4); BLOOD GAS HCO3 21 mmol/L (22-26); BLOOD GAS METHEMOGLOBIN 1.2 % (0-2); BLOOD GAS O2 HGB SATURATION 96 % (90-100); BLOOD GAS OXYGEN CONTENT 16.9 Vol % (12.0-20.0); BLOOD GAS PCO2 54 mmHg (38-42); BLOOD GAS PO2 121 mmHg (61-120); BLOOD GAS TOTAL HGB 12.4 G/DL (12.0-16.0); CRITICAL VALUE YES; OXYGEN DEVICE VENTILATOR; TEMP CORR TO 98.6
[2016-09-25 18:51] LABS: DRAW SITE RT RADIAL; FIO2 40 %; NUMBER OF ARTERIAL PUNCTURES 1; STAT NO; ULNAR PULSE PRESENT
[2016-09-25] MEDS: CHLORHEXIDINE 0.12% (ORAL KIT) 15 ML CUP MT SCH (19:41)
[2016-09-25] MEDS: MIDAZOLAM 100 MG/NS 100 ML DRIP Premix IV SCH (21:59)
[2016-09-26] VITALS (28 sets, daily range): BP systolic 70–118; BP diastolic 47–67; PULSE 62–89; RESP 12–26; TEMP 97.8–98.4; O2SAT 96–99
[2016-09-26] MEDS: SODIUM CHLOR 0.9% 1000 ML INJ 1,000 ML IV SCH ×2 (00:44→13:08)
[2016-09-26] MEDS: methylPREDNISolone SOD SUCC 125 MG/2 ML VIAL IV SCH ×3 (01:55→18:05)
[2016-09-26] MEDS: RESP: ALBUTEROL 2.5 MG/IPRATROPIUM 0.5 MG NEB (SCH) NEB ×6 (04:09→23:51)
[2016-09-26] MEDS: INSULIN NovoLIN REGULAR SUPPLEMENTAL SCALE SQ SCH ×4 (04:54→18:00)
[2016-09-26 06:29] LABS: AUTOMATED NEUTROPHIL # 17.6 TH/MM3 (1.8-7.7); HEMATOCRIT 35.9 % (35.0-46.0); HEMO FLAGS DIFF FINAL; LYMPH % 3.9 % (9.0-44.0); LYMPHOCYTE # 0.7 TH/MM3 (1.0-4.8); MEAN CELL VOLUME 92.2 FL (80.0-100.0); MEAN CORPUSCULAR HEMOGLOBIN 30.5 PG (27.0-34.0); MEAN CORPUSCULAR HGB CONC 33.1 % (32.0-36.0); MONO % 3.8 % (0.0-8.0); NEUT % 92.3 % (16.0-70.0); PLATELET COUNT 264 TH/MM3 (150-450); RED BLOOD COUNT 3.89 MIL/MM3 (4.00-5.30); RED CELL DISTRIBUTION WIDTH 13.7 % (11.6-17.2); WHITE BLOOD COUNT 19.1 TH/MM3 (4.0-11.0)
[2016-09-26 06:53] LABS: BICARBONATE 22.8 MEQ/L (21.0-32.0); POTASSIUM 4.6 MEQ/L (3.5-5.1)
[2016-09-26] MEDS: LISINOPRIL 10 MG TAB PO SCH (08:05)
[2016-09-26] MEDS: METOPROLOL TARTRATE 50 MG TAB PO SCH (08:05)
[2016-09-26] MEDS: HYDROCHLOROTHIAZIDE 25 MG TAB PO SCH (08:05)
[2016-09-26] MEDS: LEVOFLOXACIN 750 MG PREMIX INJ 150 ML IV SCH (08:12)
[2016-09-26] MEDS: SODIUM CHLORIDE 0.9% FLUSH 10 ML FLUSH IV FLUSH SCH ×2 (08:12→19:56)
[2016-09-26] MEDS: PANTOPRAZOLE SODIUM 40 MG VIAL IV PUSH SCH (08:13)
[2016-09-26] MEDS: CHLORHEXIDINE 0.12% (ORAL KIT) 15 ML CUP MT SCH ×2 (08:14→19:56)
[2016-09-26] MEDS: RESP: BUDESONIDE 0.5 MG/2 ML NEB NEB SCH ×2 (08:24→20:12)
[2016-09-26] MEDS: TIOTROPIUM BROMIDE 18 MCG INH INH SCH (09:00)
[2016-09-26] MEDS ORDERED: MAGNESIUM SULFATE INJ 2 GM in SODIUM CHLORIDE 0.9% INJ 96 ML IV PRN (09:15)
[2016-09-26] MEDS ORDERED: MAGNESIUM SULFATE INJ 4 GM in SODIUM CHLORIDE 0.9% INJ 92 ML IV PRN (09:15)
[2016-09-26] MEDS ORDERED: POTASSIUM CHLORIDE 25 MEQ EFFERVESCENT TAB PO PRN (09:15)
[2016-09-26] MEDS ORDERED: SODIUM PHOSPHATE INJ 30 MMOL in SODIUM CHLOR 0.9% 250 ML INJ 240 ML IV PRN (09:15)
[2016-09-26] MEDS ORDERED: POTASSIUM PHOSPHATE MONOBASIC 500 MG TAB PO PRN (09:15)
[2016-09-26] MEDS ORDERED: MAGNESIUM OXIDE 400 MG TAB PO PRN (09:15)
[2016-09-26] MEDS ORDERED: POTASSIUM PHOSPHATE INJ 30 MMOL in SODIUM CHLOR 0.9% 250 ML INJ 250 ML IV PRN (09:15)
[2016-09-26] MEDS ORDERED: POTASSIUM PHOSPHATE MONOBASIC 500 MG TAB PO/TUBE PRN (09:15)
[2016-09-26] MEDS ORDERED: POTASSIUM CHLOR 20 MEQ PREMIX 100 ML IV PRN ×2 (09:15)
[2016-09-26] MEDS ORDERED: POTASSIUM CHLOR 40 MEQ PREMIX 100 ML IV PRN ×2 (09:15)
--- NOTE | 2016-09-26 09:16 | HHI.CCPN ---
Subjective Remarks/Hospital Course The patient is a 56-year-old female with past medical history of COPD and hypertension who presented to the [facility] ED with a 2-week history of progressive shortness of breath. In addition, she reports a dry cough and wheezing. The patient denies any constitutional symptoms. In addition she denies any nausea, vomiting, or abdominal pain. No history of orthopnea, PND or edema of lower extremities. She denies any use of oxygen at home; however, she uses nebulizers and is on Symbicort. In the ED the patient was given IV steroids and bronchodilator treatments. She was in the ER last night with the same presentation and after several hours of treatments she was discharged with a prescription for a tapered dose of prednisone. In addition, she was given a new albuterol inhaler. She came back a few hours later in respiratory distress. A chest x-ray from last night showed no acute disease. No laboratory data or blood gases available today; however, ABG from last night on a BiPAP 02/03 with 35% FIO2 showed a pH of 7.37, CO2 40, pAO2 of 105, bicarb 23 and saturation of 96%. 09/26 Patient was intubated yesterday for resp distress sedated with Versed 5mg and low doses Fentanyl and Diprivan. Afebrile. Given 1L NS last night for hypotension Objective Vital Signs Date Time Temp Pulse Resp B/P Pulse Ox O2 Delivery O2 Flow Rate FiO2 09/26/16 08:26 97 40 09/26/16 06:00 73 09/26/16 04:00 97.9 14 80/51 09/25/16 13:06 BiPAP Intake and Output 09/25/16 09/25/16 09/26/16 08:00 16:00 00:00 Intake Total 1375 ml Output Total 475 ml Balance 900 ml Result Diagram: 09/26/16 0547 09/26/16 0547 Other Results Laboratory Tests Test 09/25/16 09/25/16 09/25/16 09/25/16 12:45 13:24 16:50 18:38 Blood Gas Puncture Site RT RADIAL RT RADIAL RT RADIAL Blood Gas Patient Temperature 98.6 98.6 98.6 Blood Gas HCO3 23 mmol/L 22 mmol/L 21 mmol/L Blood Gas Base Excess -2.3 mmol/L -5.5 mmol/L -5.4 mmol/L Blood Gas Oxygen Saturation 99 % 98 % 96 % Arterial Blood pH 7.29 7.17 7.22 Arterial Blood Partial 50 mmHg 63 mmHg 54 mmHg Pressure CO2 Arterial Blood Partial 252 mmHG 538 mmHg 121 mmHg Pressure O2 Arterial Blood Oxygen Content 19.7 Vol % 18.8 Vol % 16.9 Vol % Arterial Blood 0.5 % 0.6 % 1.1 % Carboxyhemoglobin Arterial Blood Methemoglobin 0.6 % 1.4 % 1.2 % Blood Gas Hemoglobin 13.8 G/DL 12.7 G/DL 12.4 G/DL Oxygen Delivery Device BiPAP VENTILATOR VENTILATOR Blood Gas Ventilator Setting [id number]/[id number] Blood Gas Inspired Oxygen 50 % 100 % 40 % White Blood Count 12.7 TH/MM3 Red Blood Count 4.41 MIL/MM3 Hemoglobin 13.1 GM/DL Hematocrit 40.3 % Mean Corpuscular Volume 91.3 FL Mean Corpuscular Hemoglobin 29.8 PG Mean Corpuscular Hemoglobin 32.6 % Concent Red Cell Distribution Width 13.1 % Platelet Count 287 TH/MM3 Mean Platelet Volume 8.1 FL Neutrophils (%) (Auto) 95.5 % Lymphocytes (%) (Auto) 2.5 % Monocytes (%) (Auto) 1.7 % Eosinophils (%) (Auto) 0.0 % Basophils (%) (Auto) 0.3 % Neutrophils # (Auto) 12.1 TH/MM3 Lymphocytes # (Auto) 0.3 TH/MM3 Monocytes # (Auto) 0.2 TH/MM3 Eosinophils # (Auto) 0.0 TH/MM3 Basophils # (Auto) 0.0 TH/MM3 CBC Comment DIFF FINAL Differential Comment Sodium Level 138 MEQ/L Potassium Level 4.4 MEQ/L Chloride Level 106 MEQ/L Carbon Dioxide Level 23.6 MEQ/L Anion Gap 8 MEQ/L Blood Urea Nitrogen 12 MG/DL Creatinine 0.77 MG/DL Estimat Glomerular Filtration 78 ML/MIN Rate Random Glucose 121 MG/DL Calcium Level 8.9 MG/DL Phosphorus Level 3.4 MG/DL Magnesium Level 2.4 MG/DL Total Bilirubin 0.3 MG/DL Aspartate Amino Transf 34 U/L (AST/SGOT) Alanine Aminotransferase 39 U/L (ALT/SGPT) Alkaline Phosphatase 83 U/L Total Protein 7.3 GM/DL Albumin 3.5 GM/DL Test 09/26/16 05:47 White Blood Count 19.1 TH/MM3 Red Blood Count 3.89 MIL/MM3 Hemoglobin 11.9 GM/DL Hematocrit 35.9 % Mean Corpuscular Volume 92.2 FL Mean Corpuscular Hemoglobin 30.5 PG Mean Corpuscular Hemoglobin 33.1 % Concent Red Cell Distribution Width 13.7 % Platelet Count 264 TH/MM3 Mean Platelet Volume 8.8 FL Neutrophils (%) (Auto) 92.3 % Lymphocytes (%) (Auto) 3.9 % Monocytes (%) (Auto) 3.8 % Eosinophils (%) (Auto) 0.0 % Basophils (%) (Auto) 0.0 % Neutrophils # (Auto) 17.6 TH/MM3 Lymphocytes # (Auto) 0.7 TH/MM3 Monocytes # (Auto) 0.7 TH/MM3 Eosinophils # (Auto) 0.0 TH/MM3 Basophils # (Auto) 0.0 TH/MM3 CBC Comment DIFF FINAL Differential Comment Sodium Level 143 MEQ/L Potassium Level 4.6 MEQ/L Chloride Level 114 MEQ/L Carbon Dioxide Level 22.8 MEQ/L Anion Gap 6 MEQ/L Blood Urea Nitrogen 22 MG/DL Creatinine 0.99 MG/DL Estimat Glomerular Filtration 58 ML/MIN Rate Random Glucose 114 MG/DL Calcium Level 7.9 MG/DL Imaging Last Impressions Chest X-Ray 09/25/16 0000 Signed Impressions: Service Date/Time: Sunday, September 25, 2016 14:37 - CONCLUSION: ET at the joel. Rico Boston MD FACR Objective Remarks GENERAL: Patient is 56 yo intubated and sedated SKIN: Warm and dry. HEAD: Normocephalic. EYES: No scleral icterus. No injection or drainage. NECK: Supple, trachea midline. No JVD or lymphadenopathy. CARDIOVASCULAR: Regular rate and rhythm without murmurs, gallops, or rubs. RESPIRATORY: Breath sounds equal bilaterally. No accessory muscle use. GASTROINTESTINAL: Abdomen soft, non-tender, nondistended. MUSCULOSKELETAL: No cyanosis, or edema. Neuro: Sedated A/P Assessment and Plan 1. VDRF 2. COPD exacerbation. 3. Hypertension. 4. Bronchospasm 5. Leukocytosis 6. History of tobacco abuse. Plan Neuro: On low dose versed, Diprivan and Fentanyl infusions for sedation. Daily sedation vacation when appropriate. Pulm: Continue with oxygen and maintain sats > 92%. Bronchodilators, Pulmicort nebulizers q. 12, Spiriva one cap daily. Solumederol 80mg Q8 Check CXR and ABG CV: Monitor HR and BP keep MAP>65mmHg. Hold BP meds On NS @84ml/hr : Monitor renal function, intake and output and electrolyte replacement as needed. GI: On Protonix 40 mg IV daily. Continue tube feeds- Glucerna 1.5 with goal rate 45ml/hr ID: On Levaquin, add Zosyn, check BC x 2 sets, UA, sputum cx, Monitor for signs of infections ( Fever, WBC). Endo: SSI with accuchecks. Heme: Monitor CBC. GI prophylaxis with Protonix 40 mg daily and DVT prophylaxis with SCDs and Lovenox 40 mg subcu daily. Level 3 Carmita Oconnell MD Sep 26, 2016 09:16
--- NOTE | 2016-09-26 09:58 | RADRPT ---
EXAM DATE/TIME: 09/26/2016 09:04 [facility] COMPARISON: CHEST SINGLE AP, September 25, 2016, 14:37. INDICATIONS : Respiratory failure. MEDICAL HISTORY : Chronic obstructive pulmonary disease. SURGICAL HISTORY : None. ENCOUNTER: Subsequent ACUITY: 4 - 6 days PAIN SCORE: Non-responsive. LOCATION: Bilateral chest FINDINGS: ET tube is at the joel directed towards the right main bronchus. The nasogastric tube is across th e GE junction. The lungs are clear. The heart and pulmonary vascularity are normal. CONCLUSION: ET at the joel. Rico Boston MD FACR on September 26, 2016 at 9:55 Board Certified Radiologist. This report was verified electronically.
[2016-09-26] MEDS: PIPERACIL-TAZO 4.5 GM PREMIX 100 ML IV SCH ×3 (10:11→19:56)
[2016-09-26 10:43] LABS: BLOOD GAS BASE EXCESS -6.3 mmol/L (-2-2); BLOOD GAS CARBOXYHEMOGLOBIN 1.2 % (0-4); BLOOD GAS HCO3 20 mmol/L (22-26); BLOOD GAS METHEMOGLOBIN 1.2 % (0-2); BLOOD GAS O2 HGB SATURATION 92 % (90-100); BLOOD GAS PCO2 50 mmHg (38-42); BLOOD GAS PO2 75 mmHg (61-120); BLOOD GAS TOTAL HGB 11.6 G/DL (12.0-16.0); TEMP CORR TO 98.6
[2016-09-26 10:44] LABS: CRITICAL VALUE YES; DRAW SITE RT RADIAL; FIO2 40 %; NUMBER OF ARTERIAL PUNCTURES 1; OXYGEN DEVICE VENT; ULNAR PULSE PRESENT
[2016-09-26 10:45] LABS: STAT NO
[2016-09-26 12:00] LABS: BLOOD, URINE MOD (NEG); GLUCOSE,URINE NEG (NEG); HYALINE CAST, URINE 6 /lpf (RARE); KETONE, URINE NEG (NEG); MUCUS URINE FEW /lpf (OCC); NITRITE,URINE NEG (NEG); PH, URINE 5.5 (5.0-8.5); SQUAMOUS EPITHELIAL CELL URINE <1 /hpf (0-5); URINE COLOR YELLOW (YELLW/STRAW)
[2016-09-26 12:01] LABS: COMMENT (UR) CATH-CULTURE IND; CULTURE IF INDICATED CATH CULTURE IND
[2016-09-26] MEDS: ENOXAPARIN SODIUM 40 MG/0.4 ML SYRINGE SQ SCH (13:08)
[2016-09-26 13:12] LABS: BLOOD GAS BASE EXCESS -6.3 mmol/L (-2-2); BLOOD GAS CARBOXYHEMOGLOBIN 1.1 % (0-4); BLOOD GAS HCO3 19 mmol/L (22-26); BLOOD GAS METHEMOGLOBIN 1.3 % (0-2); BLOOD GAS O2 HGB SATURATION 97 % (90-100); BLOOD GAS OXYGEN CONTENT 16.1 Vol % (12.0-20.0); BLOOD GAS PCO2 38 mmHg (38-42); BLOOD GAS PO2 128 mmHg (61-120); BLOOD GAS TOTAL HGB 11.7 G/DL (12.0-16.0); TEMP CORR TO 98.6
[2016-09-26 13:13] LABS: CRITICAL VALUE NO; DRAW SITE RT RADIAL; FIO2 40 %; NUMBER OF ARTERIAL PUNCTURES 1; OXYGEN DEVICE VENT; STAT NO; ULNAR PULSE PRESENT
[2016-09-26] MEDS: fentaNYL 2,500 MCG/NS 250 ML IV SCH (13:57)
[2016-09-26] MEDS ORDERED: LORazepam 2 MG/ML VIAL ONE (14:46)
[2016-09-26] MEDS: HALOPERIDOL LACTATE 5 MG/ML AMP IV PUSH PRN ×2 (14:56→22:06)
[2016-09-26] MEDS: MIDAZOLAM 100 MG/NS 100 ML DRIP Premix IV SCH (14:57)
[2016-09-26] MEDS ORDERED: LORazepam 2 MG/ML VIAL IV PUSH ONE (15:00)
[2016-09-26] MEDS: LORazepam 2 MG/ML VIAL IV PUSH PRN (18:00)
[2016-09-27] VITALS (24 sets, daily range): BP systolic 89–170; BP diastolic 54–88; PULSE 64–100; RESP 26; TEMP 98.4–98.6; O2SAT 95–100
[2016-09-27] MEDS: LORazepam 2 MG/ML VIAL IV PUSH PRN ×2 (00:51→07:43)
[2016-09-27 02:37] LABS: BLOOD GAS BASE EXCESS -3.6 mmol/L (-2-2); BLOOD GAS HCO3 23 mmol/L (22-26); BLOOD GAS METHEMOGLOBIN 1.2 % (0-2); BLOOD GAS O2 HGB SATURATION 96 % (90-100); BLOOD GAS OXYGEN CONTENT 16.6 Vol % (12.0-20.0); BLOOD GAS PCO2 52 mmHg (38-42); BLOOD GAS PO2 110 mmHg (61-120); BLOOD GAS TOTAL HGB 12.2 G/DL (12.0-16.0); TEMP CORR TO 98.6
[2016-09-27 02:39] LABS: CRITICAL VALUE YES; OXYGEN DEVICE VENTILATOR
[2016-09-27 02:41] LABS: DRAW SITE LT RADIAL; FIO2 40 %; NUMBER OF ARTERIAL PUNCTURES 1; STAT YES; ULNAR PULSE PRESENT
[2016-09-27] MEDS: RESP: ALBUTEROL 2.5 MG/IPRATROPIUM 0.5 MG NEB (SCH) NEB ×6 (02:44→23:51)
[2016-09-27] MEDS: methylPREDNISolone SOD SUCC 125 MG/2 ML VIAL IV SCH ×3 (02:56→18:34)
[2016-09-27] MEDS: PIPERACIL-TAZO 4.5 GM PREMIX 100 ML IV SCH ×4 (02:56→20:12)
[2016-09-27] MEDS: SODIUM CHLOR 0.9% 1000 ML INJ 1,000 ML IV SCH ×2 (02:56→13:29)
--- NOTE | 2016-09-27 04:44 | RADRPT ---
EXAM DATE/TIME: 09/27/2016 03:20 [facility] COMPARISON: CHEST SINGLE AP, September 26, 2016, 9:04. INDICATIONS : Respiratory distress, evaluate lungs and intubation. MEDICAL HISTORY : Chronic obstructive pulmonary disease. SURGICAL HISTORY : None. ENCOUNTER: Subsequent ACUITY: 1 week PAIN SCORE: Non-responsive. LOCATION: Bilateral chest FINDINGS: A single view of the chest demonstrates the endotracheal tube and nasogastric are both in good positi on. The lungs remain clear. The cardiomediastinal contours are unremarkable. Osseous structures are intact. CONCLUSION: Endotracheal tube and nasogastric both in good position. Lungs remain clear. Luis Redman MD on September 27, 2016 at 4:42 Board Certified Radiologist. This report was verified electronically.
[2016-09-27] MEDS: RESP: ALBUTEROL 2.5 MG/IPRATROPIUM 0.5 MG NEB (PRN) NEB ×2 (04:46→22:01)
[2016-09-27] MEDS: HALOPERIDOL LACTATE 5 MG/ML AMP IV PUSH PRN ×2 (05:01→18:02)
[2016-09-27] MEDS: INSULIN NovoLIN REGULAR SUPPLEMENTAL SCALE SQ SCH ×5 (05:29→23:45)
[2016-09-27 06:06] LABS: AUTOMATED NEUTROPHIL # 20.7 TH/MM3 (1.8-7.7); BASOPHIL % 0.1 % (0.0-2.0); HEMATOCRIT 37.7 % (35.0-46.0); HEMO FLAGS DIFF FINAL; LYMPH % 2.3 % (9.0-44.0); LYMPHOCYTE # 0.5 TH/MM3 (1.0-4.8); MEAN CELL VOLUME 93.4 FL (80.0-100.0); MEAN CORPUSCULAR HEMOGLOBIN 29.8 PG (27.0-34.0); MEAN CORPUSCULAR HGB CONC 31.9 % (32.0-36.0); MONO % 5.6 % (0.0-8.0); PLATELET COUNT 265 TH/MM3 (150-450); RED BLOOD COUNT 4.04 MIL/MM3 (4.00-5.30); RED CELL DISTRIBUTION WIDTH 13.8 % (11.6-17.2); WHITE BLOOD COUNT 22.6 TH/MM3 (4.0-11.0)
[2016-09-27 06:25] LABS: BICARBONATE 21.9 MEQ/L (21.0-32.0); POTASSIUM 4.3 MEQ/L (3.5-5.1)
[2016-09-27] MEDS: RESP: BUDESONIDE 0.5 MG/2 ML NEB NEB SCH ×2 (08:00→19:30)
[2016-09-27] MEDS: CHLORHEXIDINE 0.12% (ORAL KIT) 15 ML CUP MT SCH ×2 (08:06→20:12)
[2016-09-27] MEDS: SODIUM CHLORIDE 0.9% FLUSH 10 ML FLUSH IV FLUSH SCH ×2 (08:06→20:12)
[2016-09-27] MEDS: PANTOPRAZOLE SODIUM 40 MG VIAL IV PUSH SCH (08:06)
[2016-09-27] MEDS: LEVOFLOXACIN 750 MG PREMIX INJ 150 ML IV SCH (08:06)
[2016-09-27 08:50] LABS: BLOOD GAS BASE EXCESS -3.8 mmol/L (-2-2); BLOOD GAS HCO3 21 mmol/L (22-26); BLOOD GAS METHEMOGLOBIN 1.1 % (0-2); BLOOD GAS O2 HGB SATURATION 96 % (90-100); BLOOD GAS OXYGEN CONTENT 16.1 Vol % (12.0-20.0); BLOOD GAS PCO2 41 mmHg (38-42); BLOOD GAS PO2 102 mmHg (61-120); BLOOD GAS TOTAL HGB 11.8 G/DL (12.0-16.0); TEMP CORR TO 98.6
[2016-09-27 08:51] LABS: CRITICAL VALUE NO; OXYGEN DEVICE VENT
[2016-09-27 08:53] LABS: DRAW SITE RT RADIAL; FIO2 40 %; NUMBER OF ARTERIAL PUNCTURES 1; STAT NO; ULNAR PULSE PRESENT; VENT SETTINGS PRVC/26/600/5PEEP/
--- NOTE | 2016-09-27 08:53 | HHI.CCPN ---
Subjective Remarks/Hospital Course The patient is a 56-year-old female with past medical history of COPD and hypertension who presented to the [facility] ED with a 2-week history of progressive shortness of breath. In addition, she reports a dry cough and wheezing. The patient denies any constitutional symptoms. In addition she denies any nausea, vomiting, or abdominal pain. No history of orthopnea, PND or edema of lower extremities. She denies any use of oxygen at home; however, she uses nebulizers and is on Symbicort. In the ED the patient was given IV steroids and bronchodilator treatments. She was in the ER last night with the same presentation and after several hours of treatments she was discharged with a prescription for a tapered dose of prednisone. In addition, she was given a new albuterol inhaler. She came back a few hours later in respiratory distress. A chest x-ray from last night showed no acute disease. No laboratory data or blood gases available today; however, ABG from last night on a BiPAP 02/03 with 35% FIO2 showed a pH of 7.37, CO2 40, pAO2 of 105, bicarb 23 and saturation of 96%. 09/26 Patient was intubated yesterday for resp distress sedated with Versed 5mg and low doses Fentanyl and Diprivan. Afebrile. Given 1L NS last night for hypotension 09/27 Patient is sedated with Fentanyl and intubated. Afebrile. Patient was initially placed on PC/AC last night however his ABG showed acute resp acidosis with PH: 7.26,COP2 52 he was placed back on PRVC/AC mode. Objective Vital Signs Date Time Temp Pulse Resp B/P Pulse Ox O2 Delivery O2 Flow Rate FiO2 09/27/16 07:56 98 40 09/27/16 06:00 83 09/27/16 04:00 98.4 26 89/54 09/25/16 13:06 BiPAP Intake and Output 09/26/16 09/26/16 09/27/16 08:00 16:00 00:00 Intake Total 750 ml 1872 ml 794 ml Output Total 375 ml 375 ml 300 ml Balance 375 ml 1497 ml 494 ml Result Diagram: 09/27/16 0530 09/27/16 0530 Other Results Laboratory Tests Test 09/26/16 09/26/16 09/26/16 09/27/16 10:25 11:15 12:50 02:22 Blood Gas Puncture Site RT RADIAL RT RADIAL LT RADIAL Blood Gas Patient Temperature 98.6 98.6 98.6 Blood Gas HCO3 20 mmol/L 19 mmol/L 23 mmol/L Blood Gas Base Excess -6.3 mmol/L -6.3 mmol/L -3.6 mmol/L Blood Gas Oxygen Saturation 92 % 97 % 96 % Arterial Blood pH 7.23 7.31 7.26 Arterial Blood Partial 50 mmHg 38 mmHg 52 mmHg Pressure CO2 Arterial Blood Partial 75 mmHg 128 mmHg 110 mmHg Pressure O2 Arterial Blood Oxygen Content 15.0 Vol % 16.1 Vol % 16.6 Vol % Arterial Blood 1.2 % 1.1 % 1.0 % Carboxyhemoglobin Arterial Blood Methemoglobin 1.2 % 1.3 % 1.2 % Blood Gas Hemoglobin 11.6 G/DL 11.7 G/DL 12.2 G/DL Oxygen Delivery Device VENT VENT VENTILATOR Blood Gas Ventilator Setting PRVC/// 24/ SEE COMMENT Blood Gas Inspired Oxygen 40 % 40 % 40 % Urine Color YELLOW Urine Turbidity HAZY Urine pH 5.5 Urine Specific Horace 1.026 Urine Protein TRACE mg/dL Urine Glucose (UA) NEG mg/dL Urine Ketones NEG mg/dL Urine Occult Blood MOD Urine Nitrite NEG Urine Bilirubin NEG Urine Urobilinogen LESS THAN 2.0 MG/DL Urine Leukocyte Esterase NEG Urine RBC 127 /hpf Urine WBC 9 /hpf Urine Squamous Epithelial <1 /hpf Cells Urine Hyaline Casts 6 /lpf Urine Mucus FEW /lpf Microscopic Urinalysis Comment CATH-CULTURE IND Test 09/27/16 05:30 White Blood Count 22.6 TH/MM3 Red Blood Count 4.04 MIL/MM3 Hemoglobin 12.0 GM/DL Hematocrit 37.7 % Mean Corpuscular Volume 93.4 FL Mean Corpuscular Hemoglobin 29.8 PG Mean Corpuscular Hemoglobin 31.9 % Concent Red Cell Distribution Width 13.8 % Platelet Count 265 TH/MM3 Mean Platelet Volume 8.8 FL Neutrophils (%) (Auto) 92.0 % Lymphocytes (%) (Auto) 2.3 % Monocytes (%) (Auto) 5.6 % Eosinophils (%) (Auto) 0.0 % Basophils (%) (Auto) 0.1 % Neutrophils # (Auto) 20.7 TH/MM3 Lymphocytes # (Auto) 0.5 TH/MM3 Monocytes # (Auto) 1.3 TH/MM3 Eosinophils # (Auto) 0.0 TH/MM3 Basophils # (Auto) 0.0 TH/MM3 CBC Comment DIFF FINAL Differential Comment Sodium Level 143 MEQ/L Potassium Level 4.3 MEQ/L Chloride Level 113 MEQ/L Carbon Dioxide Level 21.9 MEQ/L Anion Gap 8 MEQ/L Blood Urea Nitrogen 28 MG/DL Creatinine 1.14 MG/DL Estimat Glomerular Filtration 49 ML/MIN Rate Random Glucose 117 MG/DL Calcium Level 8.5 MG/DL Imaging Last Impressions Chest X-Ray 09/27/16 0321 Signed Impressions: Service Date/Time: Tuesday, September 27, 2016 03:20 - CONCLUSION: Endotracheal tube and nasogastric both in good position. Lungs remain clear. Luis Redman MD Objective Remarks GENERAL: Patient is 56 yo intubated and sedated SKIN: Warm and dry. HEAD: Normocephalic. EYES: No scleral icterus. No injection or drainage. NECK: Supple, trachea midline. No JVD or lymphadenopathy. CARDIOVASCULAR: Regular rate and rhythm without murmurs, gallops, or rubs. RESPIRATORY: Breath sounds equal bilaterally. Coarse BS, diffuse wheezing GASTROINTESTINAL: Abdomen soft, non-tender, nondistended. MUSCULOSKELETAL: No cyanosis, or edema. Neuro: Sedated A/P Assessment and Plan 1. VDRF 2. COPD exacerbation. 3. Hypertension. 4. Bronchospasm 5. Leukocytosis 6. History of tobacco abuse. Plan Neuro: On Fentanyl infusions for sedation. Daily sedation vacation when appropriate. Pulm: Continue with vent support and maintain sats > 92%. Bronchodilators, Pulmicort nebulizers q. 12, Spiriva one cap daily. Solumederol 80mg Q8, ICU vent bundle. Check ABG CV: Monitor HR and BP keep MAP>65mmHg. On NS @84ml/hr, check Lactic acid : Monitor renal function, I/O's and electrolyte replacement as needed. Diurese with Bumex 1mg x1 GI: On Protonix 40 mg IV daily. Continue tube feeds- Glucerna 1.5 @45ml/hr ID: On Levaquin, Zosyn, Monitor for signs of infections ( Fever, WBC). Follow up on sputum and urine cxs. Check BC x 2 sets Endo: SSI with accuchecks. Heme: Monitor CBC. GI prophylaxis with Protonix 40 mg daily and DVT prophylaxis with SCDs and Lovenox 40 mg subcu daily. Level 3 Carmita Oconnell MD Sep 27, 2016 08:53
[2016-09-27] MEDS ORDERED: BUMETANIDE INJ 1 MG/4 ML VIAL IV PUSH ONE (09:00)
[2016-09-27 09:11] LABS: MAGNESIUM 2.9 MG/DL (1.5-2.5)
[2016-09-27] MEDS: MIDAZOLAM 100 MG/NS 100 ML DRIP Premix IV SCH ×2 (09:43→22:27)
[2016-09-27] MEDS: fentaNYL 2,500 MCG/NS 250 ML IV SCH ×2 (09:43→20:13)
[2016-09-27] MEDS: TIOTROPIUM BROMIDE 18 MCG INH INH SCH (09:50)
[2016-09-27] MEDS ORDERED: VECURONIUM BROMIDE 10 MG VIAL ONE (12:16)
[2016-09-27 13:28] LABS: INTERNATIONAL NORMALIZED RATIO 0.9 RATIO; PROTHROMBIN TIME - PATIENT 9.9 SEC (9.8-11.6)
[2016-09-27] MEDS: ENOXAPARIN SODIUM 40 MG/0.4 ML SYRINGE SQ SCH (13:29)
--- NOTE | 2016-09-27 15:41 | MB ---
cc: BIJU FOWLER DATE OF CONSULTATION: 09/27/2016. REASON FOR CONSULTATION: REQUESTING PHYSICIAN: Dr. Oconnell. HISTORY OF PRESENT ILLNESS: Ms. Oseguera is a 56-year-old female with longstanding history of COPD and asthma as well as a history of nicotine use and continues to smoke. The patient lives with her boyfriend of 25 years. He tells me that she was having sometime a bronchitis and was complaining of shortness of breath for many days before she came to the hospital. The patient was initially managed on BiPAP. She did not do well and was put on the ventilator. She has been tried on assist control, PRVC and she has high pressures and persistent bronchospasm. She has received IV steroids, magnesium, aerosol treatment and she did get one dose of Vacuronium. Currently she is on PRVC with a rate of 26. Her tidal volume is 600, FIO2 40%, I-time 0.1. She breaths around 26. Peak pressure anywhere from 41 to 49. Her chest x-ray shows endotracheal tube in good position. Her lungs are clear. Her blood gas shows pH 7.33, pCO2 41, pO2 102, bicarb 16 on 40% FIO2. WBC count is 22.6, hemoglobin 12.0, hematocrit 37%, MCV 90. Sodium 140, potassium 4.2, chloride 113, carbon dioxide 21, BUN 28, creatinine 1.14. Urine culture negative. Blood cultures are negative. PAST MEDICAL HISTORY: 1. History of bronchial asthma. 2. Possible hypertension. She did not like taking the medication for blood pressure. MEDICATIONS AT HOME: 1. Takes only inhalters. 2. She is taking lorazepam 1 milligram. 3. She is sedated with Versed and Fentanyl. 4. Solu-Medrol 80 milligrams q. 8 hours. 5. Albuterol and Atrovent nebulizer treatment. 6. Lovenox 40 milligrams a day. 7. Pulmicort nebulizer treatment. 8. Protonix 40 milligrams a day. ALLERGIES: NO KNOWN DRUG ALLERGIES. SOCIAL HISTORY: She lives with her boyfriend of 25 years. She has a long history of smoking. She drinks three to four beers three to four times a day. 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 FAMILY HISTORY: She has three children of her own. REVIEW OF SYSTEMS: As per her boyfriend, she walks. She is normally active, walks well. No change in her weight. No malignancy. No DVT or pulmonary embolus. PHYSICAL EXAMINATION: GENERAL: A well-built and well-nourished female on the ventilator and she is sedated but gets aroused easily. VITAL SIGNS: Blood pressure is 107/60, heart rate 69, respirations 26, temperature 98.6. HEAD, EYES, EARS, NOSE, THROAT: Pupils are equal and reactive to light. She is orally intubated. NECK: The neck is supple. JVP not raised. CHEST: She has bilateral diffuse bronchi. CARDIOVASCULAR: S1-S2 normal. ABDOMEN: Abdomen soft and nontender and nondistended. Bowel sounds are present. EXTREMITIES: No edema. IMPRESSION: 1. Ventilator-dependent respiratory failure. 2. COPD exacerbation. 3. Persistent bronchospasm. 4. Nicotine use. PLAN: I discussed with Dr. Oconnell that we will keep her on ventilator decrease, tidal volume 550 and I-time 0.9, FIO2 of 40%. She is sedated with fentanyl and Versed. If she is not able to maintain proper sedation, she may need propofol depending on how she tolerates with her blood pressure. Continue IV steroids. I discussed the patient's condition with her daughter. Further treatment will depend on the course in the hospital. Thank you, Dr. Oconnell, for this consult. MD SKYLER Corbin/TEODORA /2:50 PM /3:22 PM BETTY
[2016-09-27] MEDS: CISATRACURIUM INJ 100 MG in SODIUM CHLOR 0.9% 250 ML INJ 240 ML IV SCH (22:55)
[2016-09-28] VITALS (23 sets, daily range): BP systolic 95–212; BP diastolic 61–119; PULSE 59–114; RESP 26; TEMP 97.4–98.9; O2SAT 93–100
[2016-09-28] MEDS: RESP: ALBUTEROL 2.5 MG/IPRATROPIUM 0.5 MG NEB (SCH) NEB ×6 (03:27→23:32)
[2016-09-28] MEDS: PIPERACIL-TAZO 4.5 GM PREMIX 100 ML IV SCH ×4 (04:11→20:18)
[2016-09-28] MEDS: methylPREDNISolone SOD SUCC 125 MG/2 ML VIAL IV SCH ×3 (04:11→17:45)
[2016-09-28 05:44] LABS: AUTOMATED NEUTROPHIL # 13.3 TH/MM3 (1.8-7.7); BASOPHIL % 0.2 % (0.0-2.0); HEMATOCRIT 36.5 % (35.0-46.0); HEMO FLAGS DIFF FINAL; LYMPH % 5.7 % (9.0-44.0); LYMPHOCYTE # 0.9 TH/MM3 (1.0-4.8); MEAN CELL VOLUME 90.9 FL (80.0-100.0); MEAN CORPUSCULAR HEMOGLOBIN 30.5 PG (27.0-34.0); MEAN CORPUSCULAR HGB CONC 33.6 % (32.0-36.0); MONO % 5.2 % (0.0-8.0); NEUT % 88.9 % (16.0-70.0); PLATELET COUNT 252 TH/MM3 (150-450); RED BLOOD COUNT 4.02 MIL/MM3 (4.00-5.30); RED CELL DISTRIBUTION WIDTH 13.5 % (11.6-17.2)
[2016-09-28] MEDS: INSULIN NovoLIN REGULAR SUPPLEMENTAL SCALE SQ SCH ×3 (06:00→17:41)
[2016-09-28 06:11] LABS: BICARBONATE 28.1 MEQ/L (21.0-32.0); POTASSIUM 3.8 MEQ/L (3.5-5.1)
[2016-09-28] MEDS: fentaNYL 2,500 MCG/NS 250 ML IV SCH ×2 (06:27→22:47)
[2016-09-28] MEDS: CHLORHEXIDINE 0.12% (ORAL KIT) 15 ML CUP MT SCH ×2 (07:29→20:17)
[2016-09-28] MEDS: RESP: BUDESONIDE 0.5 MG/2 ML NEB NEB SCH ×2 (08:41→20:33)
[2016-09-28] MEDS: LEVOFLOXACIN 750 MG PREMIX INJ 150 ML IV SCH (08:48)
[2016-09-28] MEDS: TIOTROPIUM BROMIDE 18 MCG INH INH SCH (08:48)
[2016-09-28] MEDS: PANTOPRAZOLE SODIUM 40 MG VIAL IV PUSH SCH (08:48)
[2016-09-28] MEDS: SODIUM CHLORIDE 0.9% FLUSH 10 ML FLUSH IV FLUSH SCH ×2 (08:49→20:18)
[2016-09-28] MEDS ORDERED: BUMETANIDE INJ 1 MG/4 ML VIAL IV PUSH ONE (09:00)
[2016-09-28] MEDS: FREE WATER G-TUBE SCH ×2 (09:00→15:25)
--- NOTE | 2016-09-28 09:06 | HHI.CCPN ---
Subjective Remarks/Hospital Course The patient is a 56-year-old female with past medical history of COPD and hypertension who presented to the [facility] ED with a 2-week history of progressive shortness of breath. In addition, she reports a dry cough and wheezing. The patient denies any constitutional symptoms. In addition she denies any nausea, vomiting, or abdominal pain. No history of orthopnea, PND or edema of lower extremities. She denies any use of oxygen at home; however, she uses nebulizers and is on Symbicort. In the ED the patient was given IV steroids and bronchodilator treatments. She was in the ER last night with the same presentation and after several hours of treatments she was discharged with a prescription for a tapered dose of prednisone. In addition, she was given a new albuterol inhaler. She came back a few hours later in respiratory distress. A chest x-ray from last night showed no acute disease. No laboratory data or blood gases available today; however, ABG from last night on a BiPAP 02/03 with 35% FIO2 showed a pH of 7.37, CO2 40, pAO2 of 105, bicarb 23 and saturation of 96%. 09/26 Patient was intubated yesterday for resp distress sedated with Versed 5mg and low doses Fentanyl and Diprivan. Afebrile. Given 1L NS last night for hypotension 09/27 Patient is sedated with Fentanyl and intubated. Afebrile. Patient was initially placed on PC/AC last night however his ABG showed acute resp acidosis with PH: 7.26,COP2 52 he was placed back on PRVC/AC mode. 09/28 Patient remains sedated with Fentanyl and versed placed on Nimbex overnight. Afebrile. WBC is trending down. Objective Vital Signs Date Time Temp Pulse Resp B/P Pulse Ox O2 Delivery O2 Flow Rate FiO2 09/28/16 08:42 93 40 09/28/16 08:00 97.7 59 26 157/75 09/25/16 13:06 BiPAP Intake and Output 09/27/16 09/27/16 09/28/16 08:00 16:00 00:00 Intake Total 914 ml 1113 ml 806 ml Output Total 300 ml 1650 ml 475 ml Balance 614 ml -537 ml 331 ml Result Diagram: 09/28/16 0451 09/28/16450 Other Results Last Impressions Chest X-Ray 09/27/16320 Signed Impressions: Service Date/Time: Tuesday, September 27, 2016 03:20 - CONCLUSION: Endotracheal tube and nasogastric both in good position. Lungs remain clear. Luis Redman MD Imaging Last Impressions Chest X-Ray 09/27/16320 Signed Impressions: Service Date/Time: Tuesday, September 27, 2016 03:20 - CONCLUSION: Endotracheal tube and nasogastric both in good position. Lungs remain clear. Luis Redman MD Objective Remarks GENERAL: Patient is 56 yo intubated and sedated SKIN: Warm and dry. HEAD: Normocephalic. EYES: No scleral icterus. No injection or drainage. NECK: Supple, trachea midline. No JVD or lymphadenopathy. CARDIOVASCULAR: Regular rate and rhythm without murmurs, gallops, or rubs. RESPIRATORY: Breath sounds equal bilaterally. Coarse BS, diffuse wheezing GASTROINTESTINAL: Abdomen soft, non-tender, nondistended. MUSCULOSKELETAL: No cyanosis, or edema. Neuro: Sedated A/P Assessment and Plan 1. VDRF 2. COPD exacerbation. 3. Hypertension. 4. Bronchospasm 5. Leukocytosis 6. History of tobacco abuse. Plan Neuro: On Fentanyl, Versed infusions for sedation in addition patient was placed on Nimbex overnight. Monitor train of 4. Daily sedation vacation when appropriate. Pulm: Continue with vent support and maintain sats > 92%. Bronchodilators, Pulmicort nebulizers q. 12, Spiriva one cap daily. Solumederol 80mg Q8, ICU vent bundle. Check ABG Not ready for SBT trials given bronchospasm. Pulm is following- Dr. Marquez CV: Monitor HR and BP keep MAP>65mmHg. Lactic acid: 1.9 : Monitor renal function, I/O's and electrolyte replacement as needed. Diurese with Bumex 1mg x1, add Free water 250ml Q8 monitor sodium level. GI: On Protonix 40 mg IV daily. Continue tube feeds- Glucerna 1.5 @45ml/hr ID: On Levaquin, Zosyn, Monitor for signs of infections ( Fever, WBC).WBC is trending down Follow up on sputum and urine cxs. 09/27 BC: NGTD 09/27, Sputum cx: normal growth, Urine : NGTD Endo: SSI with accuchecks. Heme: Monitor CBC. GI prophylaxis with Protonix 40 mg daily and DVT prophylaxis with SCDs and Lovenox 40 mg subcu daily. Level 3 Carmita Oconnell MD Sep 28, 2016 09:06
[2016-09-28] MEDS: CISATRACURIUM INJ 100 MG in SODIUM CHLOR 0.9% 250 ML INJ 240 ML IV SCH ×2 (10:37→20:17)
[2016-09-28] MEDS: ENOXAPARIN SODIUM 40 MG/0.4 ML SYRINGE SQ SCH (11:53)
[2016-09-28 12:51] LABS: BLOOD GAS BASE EXCESS 5.1 mmol/L (-2-2); BLOOD GAS CARBOXYHEMOGLOBIN 1.5 % (0-4); BLOOD GAS HCO3 29 mmol/L (22-26); BLOOD GAS METHEMOGLOBIN 1.1 % (0-2); BLOOD GAS O2 HGB SATURATION 93 % (90-100); BLOOD GAS OXYGEN CONTENT 16.5 Vol % (12.0-20.0); BLOOD GAS PCO2 39 mmHg (38-42); BLOOD GAS PO2 70 mmHg (61-120); BLOOD GAS TOTAL HGB 12.6 G/DL (12.0-16.0); CRITICAL VALUE NO; TEMP CORR TO 98.6
[2016-09-28 12:53] LABS: DRAW SITE RT RADIAL; FIO2 40 %; NUMBER OF ARTERIAL PUNCTURES 1; STAT NO; ULNAR PULSE PRESENT
[2016-09-28] MEDS: MIDAZOLAM 100 MG/NS 100 ML DRIP Premix IV SCH ×2 (14:36→22:47)
--- NOTE | 2016-09-28 17:15 | HHI.PR ---
Subjective Remarks 56 YOWF with VDRF, sedated started Nimbex last night no Fever BP high Objective Vital Signs Vital Signs Date Time Temp Pulse Resp B/P Pulse Ox O2 Delivery O2 Flow Rate FiO2 09/28/16 16:00 75 09/28/16 16:00 98.0 79 26 146/72 97 09/28/16 16:00 40 09/28/16 15:00 76 26 175/80 99 09/28/16 14:50 99 40 09/28/16 14:00 114 26 212/119 99 09/28/16 14:00 100 09/28/16 13:00 87 26 153/81 96 09/28/16 12:37 100 40 09/28/16 12:00 40 09/28/16 12:00 98.4 82 26 172/81 99 09/28/16 12:00 96 09/28/16 11:00 74 26 112/66 100 09/28/16 10:00 71 26 166/78 100 09/28/16 10:00 75 09/28/16 09:00 97 26 178/89 95 09/28/16 08:42 93 40 09/28/16 08:00 97.7 59 26 157/75 100 09/28/16 08:00 60 09/28/16 08:00 40 09/28/16 07:00 62 26 168/81 100 09/28/16 06:00 61 09/28/16 04:42 99 40 09/28/16 04:00 68 09/28/16 04:00 40 09/28/16 04:00 98.6 68 26 151/73 100 09/28/16 02:00 62 09/28/16 01:53 98 40 09/28/16 00:00 98.9 75 26 95/61 98 09/28/16 00:00 40 09/28/16 00:00 75 09/27/16 22:01 95 40 09/27/16 22:00 100 09/27/16 20:00 40 09/27/16 20:00 64 09/27/16 20:00 98.5 64 26 97/59 97 09/27/16 19:31 97 40 09/27/16 18:00 81 09/27/16 18:00 81 26 94/55 97 I/O 7/30/17 709/27/16 09/28/16 09/28/16 09/28/16 07:00 15:00 23:00 07:00 15:00 23:00 Intake Total 914 ml 1113 ml 806 ml 771 ml 1230 ml Output Total 300 ml 1650 ml 475 ml 300 ml 2100 ml Balance 614 ml -537 ml 331 ml 471 ml -870 ml IV Total 647 ml 745 ml 475 ml 437 ml 616 ml Tube Feeding 207 ml 248 ml 271 ml 274 ml 364 ml Other 60 ml 120 ml 60 ml 60 ml 250 ml Output Urine Total 300 ml 1650 ml 475 ml 300 ml 2100 ml # Bowel Movements 0 0 0 0 0 Result Diagram: 09/28/1645009/28/16450 Objective Remarks GENERAL: MBMN WF, on Vent SKIN: Warm and dry. HEAD: Normocephalic. EYES: No scleral icterus. No injection or drainage. NECK: Supple, trachea midline. No JVD or lymphadenopathy. CARDIOVASCULAR: Regular rate and rhythm without murmurs, gallops, or rubs. RESPIRATORY: Breath sounds equal bilaterally. No accessory muscle use. GASTROINTESTINAL: Abdomen soft, non-tender, nondistended. MUSCULOSKELETAL: No cyanosis, or edema. BACK: Nontender without obvious deformity. No CVA tenderness. A/P Assessment and Plan VDRF COPD Exac HTN Nicotine use PLAN Vent support sedation with Fentanyl and Versed Paralysed with Nimbex Aerosol nebs cont Steroids LUNA Salas. Abdirahman Marquez MD Sep 28, 2016 17:15
[2016-09-28] MEDS: RESP: ALBUTEROL 2.5 MG/IPRATROPIUM 0.5 MG NEB (PRN) NEB (20:33)
[2016-09-29] VITALS (22 sets, daily range): BP systolic 104–207; BP diastolic 58–123; PULSE 75–111; RESP 17–26; TEMP 97.5–99.4; O2SAT 94–100
[2016-09-29] MEDS: FREE WATER G-TUBE SCH ×4 (01:00→23:29)
[2016-09-29] MEDS: methylPREDNISolone SOD SUCC 125 MG/2 ML VIAL IV SCH ×3 (02:13→17:16)
[2016-09-29] MEDS: PIPERACIL-TAZO 4.5 GM PREMIX 100 ML IV SCH ×4 (02:13→19:59)
[2016-09-29] MEDS: RESP: ALBUTEROL 2.5 MG/IPRATROPIUM 0.5 MG NEB (SCH) NEB ×4 (03:41→15:32)
--- NOTE | 2016-09-29 04:55 | RADRPT ---
EXAM DATE/TIME: 09/29/2016 04:13 [place] COMPARISON: CHEST SINGLE AP, September 27, 2016, 3:20. INDICATIONS : Respiratory distress. MEDICAL HISTORY : Chronic obstructive pulmonary disease. SURGICAL HISTORY : None. ENCOUNTER: Subsequent ACUITY: 3 days PAIN SCORE: 0/10 LOCATION: Bilateral chest FINDINGS: A single AP portable semierect view of the bony thorax is intact. the chest was obtained and again de monstrates the endotracheal tube in place with the tip approximately 2 cm above the joel. Nasogastr ic tube is seen coursing through the esophagus into the stomach. There are no confluent infiltrates o r effusions. The heart size is within normal limits. CONCLUSION: 1. The patient remains intubated and the nasogastric tube is in place. 2. The lungs are clear. Leo Tomas MD on September 29, 2016 at 4:53 Board Certified Radiologist. This report was verified electronically.
[2016-09-29] MEDS ORDERED: [UNRECOGNIZED DRUG - REMARK] NEB ONE (05:00)
[2016-09-29] MEDS: INSULIN NovoLIN REGULAR SUPPLEMENTAL SCALE SQ SCH ×5 (05:30→23:28)
[2016-09-29] MEDS: CHLORHEXIDINE 0.12% (ORAL KIT) 15 ML CUP MT SCH ×2 (07:06→19:59)
[2016-09-29] MEDS: TIOTROPIUM BROMIDE 18 MCG INH INH SCH (08:32)
[2016-09-29] MEDS: LEVOFLOXACIN 750 MG PREMIX INJ 150 ML IV SCH (08:32)
[2016-09-29] MEDS: SODIUM CHLORIDE 0.9% FLUSH 10 ML FLUSH IV FLUSH SCH ×2 (08:32→19:59)
[2016-09-29] MEDS: PANTOPRAZOLE SODIUM 40 MG VIAL IV PUSH SCH (08:32)
[2016-09-29] MEDS: RESP: BUDESONIDE 0.5 MG/2 ML NEB NEB SCH ×2 (09:02→19:55)
[2016-09-29 09:56] LABS: BASOPHIL % 0.1 % (0.0-2.0); HEMATOCRIT 36.7 % (35.0-46.0); LYMPH % 8.7 % (9.0-44.0); LYMPHOCYTE # 1.9 TH/MM3 (1.0-4.8); MEAN CELL VOLUME 91.4 FL (80.0-100.0); MEAN CORPUSCULAR HEMOGLOBIN 30.2 PG (27.0-34.0); MEAN CORPUSCULAR HGB CONC 33.1 % (32.0-36.0); MONO % 9.7 % (0.0-8.0); NEUT % 81.5 % (16.0-70.0); PLATELET COUNT 265 TH/MM3 (150-450); RED BLOOD COUNT 4.01 MIL/MM3 (4.00-5.30); RED CELL DISTRIBUTION WIDTH 13.8 % (11.6-17.2); WHITE BLOOD COUNT 22.1 TH/MM3 (4.0-11.0)
[2016-09-29 09:58] LABS: HEMO FLAGS AUTO DIFF
[2016-09-29 10:14] LABS: BICARBONATE 28.7 MEQ/L (21.0-32.0)
[2016-09-29 10:32] LABS: BANDS 7 % (0-6); NEUTROPHIL # MANUAL DIFF 18.6 TH/MM3 (1.8-7.7); PLATELET ESTIMATE SMEAR NORMAL (NORMAL); PLATELET MORPHOLOGY NORMAL (NORMAL); POLYS (SEG NEUTROPHILS) 77 % (16-70); SCAN/DIFF FINAL DIFF MANUAL; WBC DIFF SAMPLE 100
[2016-09-29] MEDS: fentaNYL 2,500 MCG/NS 250 ML IV SCH ×2 (11:23→19:59)
[2016-09-29] MEDS: ENOXAPARIN SODIUM 40 MG/0.4 ML SYRINGE SQ SCH (11:24)
--- NOTE | 2016-09-29 12:29 | HHI.CCPN ---
Subjective Remarks/Hospital Course The patient is a 56-year-old female with past medical history of COPD and hypertension who presented to the [facility] ED with a 2-week history of progressive shortness of breath. In addition, she reports a dry cough and wheezing. The patient denies any constitutional symptoms. In addition she denies any nausea, vomiting, or abdominal pain. No history of orthopnea, PND or edema of lower extremities. She denies any use of oxygen at home; however, she uses nebulizers and is on Symbicort. In the ED the patient was given IV steroids and bronchodilator treatments. She was in the ER last night with the same presentation and after several hours of treatments she was discharged with a prescription for a tapered dose of prednisone. In addition, she was given a new albuterol inhaler. She came back a few hours later in respiratory distress. A chest x-ray from last night showed no acute disease. No laboratory data or blood gases available today; however, ABG from last night on a BiPAP 02/03 with 35% FIO2 showed a pH of 7.37, CO2 40, pAO2 of 105, bicarb 23 and saturation of 96%. 09/26 Patient was intubated yesterday for resp distress sedated with Versed 5mg and low doses Fentanyl and Diprivan. Afebrile. Given 1L NS last night for hypotension 09/27 Patient is sedated with Fentanyl and intubated. Afebrile. Patient was initially placed on PC/AC last night however his ABG showed acute resp acidosis with PH: 7.26,COP2 52 he was placed back on PRVC/AC mode. 09/28 Patient remains sedated with Fentanyl and versed placed on Nimbex overnight. Afebrile. WBC is trending down. 09/29 No events overnight. Sedated and intubated. Hypertensive. Objective Vital Signs Date Time Temp Pulse Resp B/P Pulse Ox O2 Delivery O2 Flow Rate FiO2 09/29/16 12:00 99 09/29/16 12:00 40 09/29/16 12:00 99.4 18 182/84 99 09/25/16 13:06 BiPAP Intake and Output 09/28/16 09/28/16 09/28/16 07:59 15:59 23:59 Intake Total 771 ml 1230 ml 983 ml Output Total 300 ml 2100 ml 600 ml Balance 471 ml -870 ml 383 ml Result Diagram: 09/29/16 0826 09/29/16 0826 Other Results Laboratory Tests Test 09/28/16 09/29/16 12:37 08:26 Blood Gas Puncture Site RT RADIAL Blood Gas Patient Temperature 98.6 Blood Gas HCO3 29 mmol/L Blood Gas Base Excess 5.1 mmol/L Blood Gas Oxygen Saturation 93 % Arterial Blood pH 7.48 Arterial Blood Partial 39 mmHg Pressure CO2 Arterial Blood Partial 70 mmHg Pressure O2 Arterial Blood Oxygen Content 16.5 Vol % Arterial Blood 1.5 % Carboxyhemoglobin Arterial Blood Methemoglobin 1.1 % Blood Gas Hemoglobin 12.6 G/DL Oxygen Delivery Device Blood Gas Inspired Oxygen 40 % White Blood Count 22.1 TH/MM3 Red Blood Count 4.01 MIL/MM3 Hemoglobin 12.1 GM/DL Hematocrit 36.7 % Mean Corpuscular Volume 91.4 FL Mean Corpuscular Hemoglobin 30.2 PG Mean Corpuscular Hemoglobin 33.1 % Concent Red Cell Distribution Width 13.8 % Platelet Count 265 TH/MM3 Mean Platelet Volume 9.2 FL Neutrophils (%) (Auto) 81.5 % Lymphocytes (%) (Auto) 8.7 % Monocytes (%) (Auto) 9.7 % Eosinophils (%) (Auto) 0.0 % Basophils (%) (Auto) 0.1 % Neutrophils # (Auto) 18.0 TH/MM3 Lymphocytes # (Auto) 1.9 TH/MM3 Monocytes # (Auto) 2.1 TH/MM3 Eosinophils # (Auto) 0.0 TH/MM3 Basophils # (Auto) 0.0 TH/MM3 CBC Comment AUTO DIFF Differential Total Cells 100 Counted Neutrophils % (Manual) 77 % Band Neutrophils % 7 % Lymphocytes % 11 % Monocytes % 5 % Neutrophils # (Manual) 18.6 TH/MM3 Differential Comment FINAL DIFF MANUAL Platelet Estimate NORMAL Platelet Morphology Comment NORMAL Red Cell Morphology Comment NORMAL Sodium Level 146 MEQ/L Potassium Level 4.0 MEQ/L Chloride Level 108 MEQ/L Carbon Dioxide Level 28.7 MEQ/L Anion Gap 9 MEQ/L Blood Urea Nitrogen 33 MG/DL Creatinine 0.89 MG/DL Estimat Glomerular Filtration 66 ML/MIN Rate Random Glucose 99 MG/DL Calcium Level 8.4 MG/DL Imaging Last Impressions Chest X-Ray 09/29/16 0000 Signed Impressions: Service Date/Time: Thursday, September 29, 2016 04:13 - CONCLUSION: 1. The patient remains intubated and the nasogastric tube is in place. 2. The lungs are clear. Leo Tomas MD Objective Remarks GENERAL: Patient is 56 yo intubated and sedated SKIN: Warm and dry. HEAD: Normocephalic. EYES: No scleral icterus. No injection or drainage. NECK: Supple, trachea midline. No JVD or lymphadenopathy. CARDIOVASCULAR: Regular rate and rhythm without murmurs, gallops, or rubs. RESPIRATORY: Breath sounds equal bilaterally. Coarse BS, diffuse wheezing GASTROINTESTINAL: Abdomen soft, non-tender, nondistended. MUSCULOSKELETAL: No cyanosis, or edema. Neuro: Sedated A/P Assessment and Plan 1. VDRF 2. COPD exacerbation. 3. Hypertension. 4. Bronchospasm 5. Leukocytosis 6. History of tobacco abuse. Plan Neuro: On Fentanyl, Versed infusions for sedation, on Nimbex overnight. Monitor train of 4. Daily sedation vacation when appropriate. Pulm: Continue with vent support and maintain sats > 92%. Bronchodilators, Pulmicort nebulizers q. 12, Spiriva one cap daily. Solumederol 80mg Q8, ICU vent bundle. Pulm is following- Dr. Marquez CV: Place on Cardizem 60mg QID, Monitor HR and BP keep MAP>65mmHg. Lactic acid: 1.9 : Monitor renal function, I/O's and electrolyte replacement as needed. On Free water 250ml Q8 monitor sodium level. GI: On Protonix 40 mg IV daily. Continue tube feeds- Glucerna 1.5 @45ml/hr ID: On Levaquin, Zosyn, Monitor for signs of infections ( Fever, WBC) 09/27 BC: NGTD 09/26, Sputum cx: normal growth, Urine : NGTD Endo: SSI with accuchecks. Heme: Monitor CBC. GI prophylaxis with Protonix 40 mg daily and DVT prophylaxis with SCDs and Lovenox 40 mg subcu daily. Level 3 Carmita Oconnell MD Sep 29, 2016 12:29 Carmita Oconnell MD Sep 29, 2016 12:29
[2016-09-29] MEDS ORDERED: hydrALAZINE HCL 20 MG/ML VIAL IV PUSH PRN (12:45)
[2016-09-29] MEDS: DILTIAZEM HCL 60 MG TAB PO SCH ×3 (15:50→23:28)
[2016-09-29] MEDS ORDERED: BUMETANIDE INJ 1 MG/4 ML VIAL IV PUSH ONE (17:00)
[2016-09-29] MEDS: SENNOSIDES SYRUP 8.8 MG/5 ML CUP PO SCH (17:16)
[2016-09-29] MEDS: DOCUSATE SODIUM 100 MG/10 ML UDC PO SCH ×2 (17:16→19:58)
[2016-09-29] MEDS: PROPOFOL 1000 MG/100 ML INJ 100 ML IV SCH (18:59)
--- NOTE | 2016-09-29 19:20 | HHI.PR ---
Subjective Remarks 56 YOWF with VDRF, sedated started Nimbex last night no Fever ON PCV, Fi02 40% Objective Vital Signs Vital Signs Date Time Temp Pulse Resp B/P Pulse Ox O2 Delivery O2 Flow Rate FiO2 09/29/16 18:00 106 09/29/16 16:00 88 09/29/16 16:00 40 09/29/16 16:00 99.0 100 18 176/81 96 09/29/16 15:35 97 40 09/29/16 15:00 92 18 181/86 98 09/29/16 14:00 95 09/29/16 14:00 99 18 196/98 98 09/29/16 13:00 92 18 173/82 96 09/29/16 12:00 99 09/29/16 12:00 40 09/29/16 12:00 99.4 96 18 182/84 99 09/29/16 11:39 100 40 09/29/16 11:00 96 18 158/81 99 09/29/16 10:00 111 18 172/79 94 09/29/16 10:00 94 09/29/16 09:03 96 40 09/29/16 09:00 96 22 163/100 100 09/29/16 08:00 50 09/29/16 08:00 98.5 81 18 123/66 100 09/29/16 08:00 80 09/29/16 07:00 81 18 104/58 98 09/29/16 05:40 99 50 09/29/16 05:21 50 09/29/16 04:48 96 50 09/29/16 04:00 97.5 108 17 207/123 100 09/29/16 00:05 97 40 09/29/16 00:00 97.8 75 26 116/65 98 09/29/16 00:00 40 09/28/16 21:16 96 40 09/28/16 20:00 97.4 79 26 144/81 97 09/28/16 20:00 40 I/O 09/28/16 09/28/16 09/28/16 09/29/16 09/29/16 09/29/16 07:00 15:00 23:00 07:00 15:00 23:00 Intake Total 771 ml 1230 ml 983 ml 1072 ml 1555 ml Output Total 300 ml 2100 ml 600 ml 500 ml 350 ml 2000 ml Balance 471 ml -870 ml 383 ml 572 ml 1205 ml -2000 ml IV Total 437 ml 616 ml 631 ml 566 ml 734 ml Tube Feeding 274 ml 364 ml 352 ml 256 ml 362 ml Other 60 ml 250 ml 0 ml 250 ml 459 ml Output Urine Total 300 ml 2100 ml 600 ml 500 ml 350 ml 2000 ml # Bowel Movements 0 0 0 0 Result Diagram: 09/29/1682509/29/16825 Objective Remarks GENERAL: MBMN WF, on Vent SKIN: Warm and dry. HEAD: Normocephalic. EYES: No scleral icterus. No injection or drainage. NECK: Supple, trachea midline. No JVD or lymphadenopathy. CARDIOVASCULAR: Regular rate and rhythm without murmurs, gallops, or rubs. RESPIRATORY: Breath sounds equal bilaterally. No accessory muscle use. GASTROINTESTINAL: Abdomen soft, non-tender, nondistended. MUSCULOSKELETAL: No cyanosis, or edema. BACK: Nontender without obvious deformity. No CVA tenderness. A/P Assessment and Plan VDRF COPD Exac HTN Nicotine use PLAN Vent support sedation with Fentanyl and Versed Paralysed with Nimbex Aerosol nebs cont Steroids DW . Cont PCV Abdirahman Marquez MD Sep 29, 2016 19:20
[2016-09-29] MEDS: RESP: ALBUTEROL 2.5 MG/IPRATROPIUM 0.5 MG NEB (PRN) NEB ×2 (19:55→23:12)
[2016-09-30] VITALS (16 sets, daily range): BP systolic 91–120; BP diastolic 51–66; PULSE 61–93; RESP 18; TEMP 96.6–100.3; O2SAT 91–96
[2016-09-30] MEDS: fentaNYL 2,500 MCG/NS 250 ML IV SCH ×2 (01:53→15:39)
[2016-09-30] MEDS: MIDAZOLAM 100 MG/NS 100 ML DRIP Premix IV SCH ×2 (01:53→13:09)
[2016-09-30] MEDS: methylPREDNISolone SOD SUCC 125 MG/2 ML VIAL IV SCH ×3 (01:54→17:23)
[2016-09-30] MEDS: PIPERACIL-TAZO 4.5 GM PREMIX 100 ML IV SCH ×4 (01:54→20:19)
[2016-09-30] MEDS: PROPOFOL 1000 MG/100 ML INJ 100 ML IV SCH ×2 (02:02→17:23)
[2016-09-30] MEDS: RESP: ALBUTEROL 2.5 MG/IPRATROPIUM 0.5 MG NEB (PRN) NEB ×5 (03:01→20:35)
[2016-09-30] MEDS: INSULIN NovoLIN REGULAR SUPPLEMENTAL SCALE SQ SCH ×3 (06:00→17:25)
[2016-09-30 06:32] LABS: AUTOMATED NEUTROPHIL # 12.5 TH/MM3 (1.8-7.7); BASOPHIL % 0.1 % (0.0-2.0); HEMATOCRIT 36.5 % (35.0-46.0); LYMPHOCYTE # 1.4 TH/MM3 (1.0-4.8); MEAN CELL VOLUME 90.6 FL (80.0-100.0); MEAN CORPUSCULAR HEMOGLOBIN 29.3 PG (27.0-34.0); MEAN CORPUSCULAR HGB CONC 32.3 % (32.0-36.0); MONO % 8.6 % (0.0-8.0); NEUT % 82.3 % (16.0-70.0); PLATELET COUNT 260 TH/MM3 (150-450); RED BLOOD COUNT 4.03 MIL/MM3 (4.00-5.30); RED CELL DISTRIBUTION WIDTH 13.3 % (11.6-17.2); WHITE BLOOD COUNT 15.2 TH/MM3 (4.0-11.0)
[2016-09-30 06:42] LABS: HEMO FLAGS AUTO DIFF
[2016-09-30 06:52] LABS: BICARBONATE 34.8 MEQ/L (21.0-32.0); POTASSIUM 3.9 MEQ/L (3.5-5.1)
[2016-09-30] MEDS: DOCUSATE SODIUM 100 MG/10 ML UDC PO SCH ×2 (08:23→20:19)
[2016-09-30] MEDS: DILTIAZEM HCL 60 MG TAB PO SCH ×3 (08:23→20:19)
[2016-09-30] MEDS: PANTOPRAZOLE SODIUM 40 MG VIAL IV PUSH SCH (08:23)
[2016-09-30] MEDS: SENNOSIDES SYRUP 8.8 MG/5 ML CUP PO SCH (08:23)
[2016-09-30] MEDS: LEVOFLOXACIN 750 MG PREMIX INJ 150 ML IV SCH (08:23)
[2016-09-30] MEDS: FREE WATER G-TUBE SCH ×2 (08:24→17:00)
[2016-09-30] MEDS: CHLORHEXIDINE 0.12% (ORAL KIT) 15 ML CUP MT SCH ×2 (08:24→20:00)
[2016-09-30] MEDS: TIOTROPIUM BROMIDE 18 MCG INH INH SCH (08:24)
[2016-09-30] MEDS: SODIUM CHLORIDE 0.9% FLUSH 10 ML FLUSH IV FLUSH SCH ×2 (08:24→20:19)
[2016-09-30 08:35] LABS: SCAN/DIFF AUTO DIFF CONFIRMED
--- NOTE | 2016-09-30 08:39 | HHI.CCPN ---
Subjective Remarks/Hospital Course The patient is a 56-year-old female with past medical history of COPD and hypertension who presented to the [facility] ED with a 2-week history of progressive shortness of breath. In addition, she reports a dry cough and wheezing. The patient denies any constitutional symptoms. In addition she denies any nausea, vomiting, or abdominal pain. No history of orthopnea, PND or edema of lower extremities. She denies any use of oxygen at home; however, she uses nebulizers and is on Symbicort. In the ED the patient was given IV steroids and bronchodilator treatments. She was in the ER last night with the same presentation and after several hours of treatments she was discharged with a prescription for a tapered dose of prednisone. In addition, she was given a new albuterol inhaler. She came back a few hours later in respiratory distress. A chest x-ray from last night showed no acute disease. No laboratory data or blood gases available today; however, ABG from last night on a BiPAP 02/03 with 35% FIO2 showed a pH of 7.37, CO2 40, pAO2 of 105, bicarb 23 and saturation of 96%. 09/26 Patient was intubated yesterday for resp distress sedated with Versed 5mg and low doses Fentanyl and Diprivan. Afebrile. Given 1L NS last night for hypotension 09/27 Patient is sedated with Fentanyl and intubated. Afebrile. Patient was initially placed on PC/AC last night however his ABG showed acute resp acidosis with PH: 7.26,COP2 52 he was placed back on PRVC/AC mode. 09/28 Patient remains sedated with Fentanyl and versed placed on Nimbex overnight. Afebrile. WBC is trending down. 09/29 No events overnight. Sedated and intubated. Hypertensive. 09/30 Patient remains intubated and sedated. Off Nimbex. Afebrile. Objective Vital Signs Date Time Temp Pulse Resp B/P Pulse Ox O2 Delivery O2 Flow Rate FiO2 09/30/16 04:00 40 09/30/16 04:00 97.3 70 18 104/61 92 Intake and Output 09/29/16 09/29/16 09/30/16 08:00 16:00 00:00 Intake Total 1072 ml 1555 ml 1069 ml Output Total 500 ml 350 ml 2700 ml Balance 572 ml 1205 ml -1631 ml Result Diagram: 09/30/16 0610 09/30/16 0610 Other Results Laboratory Tests Test 09/30/16 06:10 White Blood Count 15.2 TH/MM3 Red Blood Count 4.03 MIL/MM3 Hemoglobin 11.8 GM/DL Hematocrit 36.5 % Mean Corpuscular Volume 90.6 FL Mean Corpuscular Hemoglobin 29.3 PG Mean Corpuscular Hemoglobin 32.3 % Concent Red Cell Distribution Width 13.3 % Platelet Count 260 TH/MM3 Mean Platelet Volume 8.2 FL Neutrophils (%) (Auto) 82.3 % Lymphocytes (%) (Auto) 9.0 % Monocytes (%) (Auto) 8.6 % Eosinophils (%) (Auto) 0.0 % Basophils (%) (Auto) 0.1 % Neutrophils # (Auto) 12.5 TH/MM3 Lymphocytes # (Auto) 1.4 TH/MM3 Monocytes # (Auto) 1.3 TH/MM3 Eosinophils # (Auto) 0.0 TH/MM3 Basophils # (Auto) 0.0 TH/MM3 CBC Comment AUTO DIFF Sodium Level 143 MEQ/L Potassium Level 3.9 MEQ/L Chloride Level 103 MEQ/L Carbon Dioxide Level 34.8 MEQ/L Anion Gap 5 MEQ/L Blood Urea Nitrogen 29 MG/DL Creatinine 0.69 MG/DL Estimat Glomerular Filtration 88 ML/MIN Rate Random Glucose 109 MG/DL Calcium Level 8.7 MG/DL Imaging Last Impressions Chest X-Ray 09/29/16 0000 Signed Impressions: Service Date/Time: Thursday, September 29, 2016 04:13 - CONCLUSION: 1. The patient remains intubated and the nasogastric tube is in place. 2. The lungs are clear. Leo Tomas MD Objective Remarks GENERAL: Patient is 56 yo intubated and sedated SKIN: Warm and dry. HEAD: Normocephalic. EYES: No scleral icterus. No injection or drainage. NECK: Supple, trachea midline. No JVD or lymphadenopathy. CARDIOVASCULAR: Regular rate and rhythm without murmurs, gallops, or rubs. RESPIRATORY: Breath sounds equal bilaterally. Coarse BS, diffuse wheezing GASTROINTESTINAL: Abdomen soft, non-tender, nondistended. MUSCULOSKELETAL: No cyanosis, or edema. Neuro: Sedated A/P Assessment and Plan 1. VDRF 2. COPD exacerbation. 3. Hypertension. 4. Bronchospasm 5. Leukocytosis 6. History of tobacco abuse. Plan Neuro: On Fentanyl, Diprivan and Versed infusions for sedation and vent synchrony.Off Nimbex overnight. Daily sedation vacation Pulm: Continue with vent support and maintain sats > 92%. Bronchodilators, Pulmicort nebulizers q. 12, Spiriva one cap daily. Solumederol 80mg Q8, ICU vent bundle. Start SBT trials as radha Pulm is following- Dr. Marquez CV: On Cardizem 60mg QID, Monitor HR and BP keep MAP>65mmHg. Lactic acid: 1.9 : Monitor renal function, I/O's and electrolyte replacement as needed. On Free water 250ml Q8 monitor sodium level. GI: On Protonix 40 mg IV daily. Continue tube feeds- Glucerna 1.5 @45ml/hr ID: On Levaquin, Zosyn, Monitor for signs of infections ( Fever, WBC) WBC is trending down 09/27 BC: NGTD 09/26, Sputum cx: normal growth, Urine : NGTD Endo: SSI with accuchecks. Heme: Monitor CBC. GI prophylaxis with Protonix 40 mg daily and DVT prophylaxis with SCDs and Lovenox 40 mg subcu daily. Level 3 Carmita Oconnell MD Sep 30, 2016 08:39
[2016-09-30] MEDS: RESP: BUDESONIDE 0.5 MG/2 ML NEB NEB SCH ×2 (08:50→20:35)
[2016-09-30] MEDS: LACTULOSE SYRUP 20 GM/30 ML CUP PO SCH ×2 (13:00→17:23)
[2016-09-30] MEDS: ENOXAPARIN SODIUM 40 MG/0.4 ML SYRINGE SQ SCH (13:04)
--- NOTE | 2016-09-30 20:01 | HHI.PR ---
Subjective Remarks 56 YOWF with VDRF, sedated no Fever ON PCV, Fi02 40% Off Nimbex Sedated with Diprivan,Versed and Fentanyl Objective Vital Signs Vital Signs Date Time Temp Pulse Resp B/P Pulse Ox O2 Delivery O2 Flow Rate FiO2 09/30/16 18:00 93 09/30/16 16:00 77 09/30/16 16:00 35 09/30/16 16:00 97.4 81 18 101/58 91 09/30/16 15:52 92 35 09/30/16 14:00 69 09/30/16 12:34 92 35 09/30/16 12:00 91 09/30/16 12:00 35 09/30/16 12:00 96.6 66 18 91/51 93 09/30/16 10:00 61 09/30/16 08:51 95 35 09/30/16 08:00 98.4 81 18 120/57 92 09/30/16 08:00 35 09/30/16 04:00 40 09/30/16 04:00 97.3 70 18 104/61 92 09/30/16 03:45 96 35 09/30/16 00:00 97.9 73 18 114/66 96 09/30/16 00:00 40 09/29/16 23:11 97 35 I/O 09/29/16 09/29/16 09/29/16 09/30/16 09/30/16 09/30/16 07:00 15:00 23:00 07:00 15:00 23:00 Intake Total 1072 ml 1555 ml 1069 ml 619 ml 1378 ml Output Total 500 ml 350 ml 2700 ml 800 ml 850 ml Balance 572 ml 1205 ml -1631 ml -181 ml 528 ml IV Total 566 ml 734 ml 473 ml 338 ml 728 ml Tube Feeding 256 ml 362 ml 346 ml 281 ml 400 ml Other 250 ml 459 ml 250 ml 0 ml 250 ml Output Urine Total 500 ml 350 ml 2700 ml 800 ml 850 ml # Bowel Movements 0 0 0 0 Result Diagram: 09/30/16 0610 09/30/16 0610 Objective Remarks GENERAL: MBMN WF, on Vent SKIN: Warm and dry. HEAD: Normocephalic. EYES: No scleral icterus. No injection or drainage. NECK: Supple, trachea midline. No JVD or lymphadenopathy. CARDIOVASCULAR: Regular rate and rhythm without murmurs, gallops, or rubs. RESPIRATORY: Breath sounds equal bilaterally. No accessory muscle use. GASTROINTESTINAL: Abdomen soft, non-tender, nondistended. MUSCULOSKELETAL: No cyanosis, or edema. BACK: Nontender without obvious deformity. No CVA tenderness. A/P Assessment and Plan VDRF COPD Exac HTN Nicotine use PLAN Vent support sedation with Fentanyl, Diprivan and Versed Aerosol nebs cont Steroids Cont PCV Abdirahman Marquez MD Sep 30, 2016 20:01
[2016-10-01] VITALS (35 sets, daily range): BP systolic 107–183; BP diastolic 55–92; PULSE 65–101; RESP 8–25; TEMP 98.4–99.8; O2SAT 77–100
[2016-10-01] MEDS: FREE WATER G-TUBE SCH ×4 (00:30→17:00)
[2016-10-01] MEDS: RESP: ALBUTEROL 2.5 MG/IPRATROPIUM 0.5 MG NEB (PRN) NEB ×2 (01:01→04:04)
[2016-10-01] MEDS: DILTIAZEM HCL 60 MG TAB PO SCH ×5 (02:49→21:52)
[2016-10-01] MEDS: PROPOFOL 1000 MG/100 ML INJ 100 ML IV SCH (02:49)
[2016-10-01] MEDS: PIPERACIL-TAZO 4.5 GM PREMIX 100 ML IV SCH ×4 (02:49→21:52)
[2016-10-01] MEDS: methylPREDNISolone SOD SUCC 125 MG/2 ML VIAL IV SCH ×3 (02:49→18:00)
[2016-10-01] MEDS: MIDAZOLAM 100 MG/NS 100 ML DRIP Premix IV SCH ×2 (03:00→16:08)
[2016-10-01] MEDS: INSULIN NovoLIN REGULAR SUPPLEMENTAL SCALE SQ SCH ×4 (06:00→17:58)
[2016-10-01 06:17] LABS: AUTOMATED NEUTROPHIL # 16.4 TH/MM3 (1.8-7.7); BASOPHIL % 0.2 % (0.0-2.0); HEMATOCRIT 37.1 % (35.0-46.0); LYMPH % 4.8 % (9.0-44.0); LYMPHOCYTE # 0.9 TH/MM3 (1.0-4.8); MEAN CORPUSCULAR HEMOGLOBIN 30.1 PG (27.0-34.0); MEAN CORPUSCULAR HGB CONC 33.1 % (32.0-36.0); MONO % 4.1 % (0.0-8.0); NEUT % 90.9 % (16.0-70.0); PLATELET COUNT 254 TH/MM3 (150-450); RED BLOOD COUNT 4.07 MIL/MM3 (4.00-5.30); RED CELL DISTRIBUTION WIDTH 13.3 % (11.6-17.2); WHITE BLOOD COUNT 18.1 TH/MM3 (4.0-11.0)
[2016-10-01 06:18] LABS: HEMO FLAGS AUTO DIFF
[2016-10-01 06:40] LABS: BICARBONATE 35.8 MEQ/L (21.0-32.0); POTASSIUM 4.1 MEQ/L (3.5-5.1)
[2016-10-01 07:53] LABS: SCAN/DIFF AUTO DIFF CONFIRMED
[2016-10-01] MEDS: CHLORHEXIDINE 0.12% (ORAL KIT) 15 ML CUP MT SCH ×2 (08:36→21:52)
[2016-10-01] MEDS: fentaNYL 2,500 MCG/NS 250 ML IV SCH (08:36)
[2016-10-01] MEDS: LACTULOSE SYRUP 20 GM/30 ML CUP PO SCH ×4 (08:37→17:59)
[2016-10-01] MEDS: SENNOSIDES SYRUP 8.8 MG/5 ML CUP PO SCH ×2 (08:37→09:00)
[2016-10-01] MEDS: DOCUSATE SODIUM 100 MG/10 ML UDC PO SCH ×3 (08:37→21:51)
[2016-10-01] MEDS: PANTOPRAZOLE SODIUM 40 MG VIAL IV PUSH SCH (08:37)
[2016-10-01] MEDS: SODIUM CHLORIDE 0.9% FLUSH 10 ML FLUSH IV FLUSH SCH ×2 (08:40→21:51)
[2016-10-01] MEDS ORDERED: MAGNESIUM CITRATE SOLN 300 ML BTL PO ONE (08:45)
--- NOTE | 2016-10-01 08:49 | HHI.CCPN ---
Subjective Remarks/Hospital Course The patient is a 56-year-old female with past medical history of COPD and hypertension who presented to the [facility] ED with a 2-week history of progressive shortness of breath. In addition, she reports a dry cough and wheezing. The patient denies any constitutional symptoms. In addition she denies any nausea, vomiting, or abdominal pain. No history of orthopnea, PND or edema of lower extremities. She denies any use of oxygen at home; however, she uses nebulizers and is on Symbicort. In the ED the patient was given IV steroids and bronchodilator treatments. She was in the ER last night with the same presentation and after several hours of treatments she was discharged with a prescription for a tapered dose of prednisone. In addition, she was given a new albuterol inhaler. She came back a few hours later in respiratory distress. A chest x-ray from last night showed no acute disease. No laboratory data or blood gases available today; however, ABG from last night on a BiPAP 02/03 with 35% FIO2 showed a pH of 7.37, CO2 40, pAO2 of 105, bicarb 23 and saturation of 96%. 09/26 Patient was intubated yesterday for resp distress sedated with Versed 5mg and low doses Fentanyl and Diprivan. Afebrile. Given 1L NS last night for hypotension 09/27 Patient is sedated with Fentanyl and intubated. Afebrile. Patient was initially placed on PC/AC last night however his ABG showed acute resp acidosis with PH: 7.26,COP2 52 he was placed back on PRVC/AC mode. 09/28 Patient remains sedated with Fentanyl and versed placed on Nimbex overnight. Afebrile. WBC is trending down. 09/29 No events overnight. Sedated and intubated. Hypertensive. 09/30 Patient remains intubated and sedated. Off Nimbex. Afebrile. 10/01: Patient has significant bilateral wheezing. Abdominal distention increasing. No bowel movement since admission. KUB pending. Reduced RR to 14 to avoid air trapping Objective Vital Signs Date Time Temp Pulse Resp B/P Pulse Ox O2 Delivery O2 Flow Rate FiO2 10/01/16 08:00 98.4 66 18 110/67 92 10/01/16 04:04 40 Intake and Output 09/30/16 09/30/16 10/01/16 08:00 16:00 00:00 Intake Total 619 ml 1378 ml 1023 ml Output Total 800 ml 850 ml 375 ml Balance -181 ml 528 ml 648 ml Result Diagram: 10/01/16 0511 10/01/16 0511 Imaging Last Impressions Chest X-Ray 09/29/16 0000 Signed Impressions: Service Date/Time: Thursday, September 29, 2016 04:13 - CONCLUSION: 1. The patient remains intubated and the nasogastric tube is in place. 2. The lungs are clear. Leo Tomas MD Objective Remarks GENERAL: Patient is 56 yo intubated and sedated SKIN: Warm and dry. HEAD: Normocephalic. EYES: No scleral icterus. No injection or drainage. NECK: Supple, trachea midline. No JVD or lymphadenopathy. CARDIOVASCULAR: Regular rate and rhythm without murmurs, gallops, or rubs. RESPIRATORY: Breath sounds equal bilaterally. Coarse BS, diffuse wheezing GASTROINTESTINAL: Abdomen distended. Tense. No BM MUSCULOSKELETAL: No cyanosis, or edema. Neuro: Sedated. Moves all extremities on lightening sedation Assessment to: Continue A/P Assessment and Plan Acute hypercarbic respiratory failure Acute COPD exacerbation. Hypertension. Bronchospasm Leukocytosis History of tobacco abuse. Plan Neuro: On Fentanyl, Diprivan and Versed infusions for sedation and vent synchrony. Off Nimbex Start Precedex to facilitate ventilator weaning ventilatory. Daily sedation vacation if tolerated Pulm: Continue with vent support and maintain sats > 90%. Bronchodilators, Pulmicort nebulizers q. 12, Spiriva one cap daily. Solu-Medrol 80mg Q8, ICU vent bundle. Start SBT trials once wheezing improves Pulm is following- Dr. Marquez CV: On Cardizem 60mg QID, Monitor HR and BP keep MAP>65mmHg. : Monitor renal function, I/O's and electrolyte replacement as needed. On Free water 250ml Q8 monitor sodium level. GI: On Protonix 40 mg IV daily. Continue tube feeds- Glucerna 1.5 @45ml/hr- hold until he sees ruled out Check KUB to evaluate for ileus. Start Reglan 10 mg IV every 8 hours. Mag citrate if KUB neg Continue aggressive bowel regimen ID: On Levaquin, Zosyn, Monitor for signs of infections ( Fever, WBC) WBC is trending down 09/27 BC: NGTD 09/26, Sputum cx: normal growth, Urine : NGTD Endo: SSI with accuchecks. Heme: Monitor CBC. GI prophylaxis with Protonix 40 mg daily and DVT prophylaxis with SCDs and Lovenox 40 mg subcu daily. CCT 30 Patient remains critically ill. Has significant bilateral wheezing, unable to vent wean at this time. Has developed significant abdominal distention with normal bowel movements indicating probable ileus. KUB pending at this time Mirian Boyd MD Oct 01, 2016 08:49
[2016-10-01] MEDS: TIOTROPIUM BROMIDE 18 MCG INH INH SCH (09:00)
[2016-10-01] MEDS ORDERED: DEXMEDETOMIDINE INJ 200 MCG in SODIUM CHLORIDE 0.9% INJ 50 ML IV SCH (09:00)
[2016-10-01] MEDS: RESP: BUDESONIDE 0.5 MG/2 ML NEB NEB SCH ×2 (09:26→20:36)
[2016-10-01] MEDS: RESP: ALBUTEROL 2.5 MG/IPRATROPIUM 0.5 MG NEB (SCH) NEB ×3 (09:26→14:48)
[2016-10-01] MEDS: LEVOFLOXACIN 750 MG PREMIX INJ 150 ML IV SCH (09:34)
--- NOTE | 2016-10-01 09:41 | RADRPT ---
EXAM DATE/TIME: 10/01/2016 08:42 [facility] COMPARISON: CT ABDOMEN & PELVIS W CONTRAST, December 11, 2014, 21:08. INDICATIONS : Ileus. MEDICAL HISTORY : Chronic obstructive pulmonary disease. SURGICAL HISTORY : None. ENCOUNTER: Subsequent ACUITY: 4 - 6 days PAIN SCORE: Non-responsive. LOCATION: Abdomen FINDINGS: 2 supine portable frontal views of the abdomen demonstrate diffuse dilatation of the colon. No defini te small bowel dilatation is visualized. Nasogastric tube is present within the stomach. No organomeg riley is present and no abnormal mass effect is seen. No concerning calcifications are visualized. The bones demonstrate no acute finding. CONCLUSION: Diffusely dilated colon without small bowel dilatation visualized. These findings could represent ile us, Knapp syndrome, or much less likely a distal obstructing process in the rectum. Oliver Garcia MD on October 01, 2016 at 9:38 Board Certified Radiologist. This report was verified electronically.
[2016-10-01] MEDS: METOCLOPRAMIDE HCL 10 MG/2 ML VIAL IV PUSH SCH ×3 (11:36→21:52)
--- NOTE | 2016-10-01 12:58 | PD.CONS ---
HPI History of Present Illness This is a 56 year old female with hx COPD, HTN who presented to the ER with SOB and subsequently respiratory failure. She was subsequently intubated and is sedated on ventilator. GI has been consulted b/c the patient has not had a BM since admission 09/20/16. KUB shows diffuse dilated colon w/o small bowel dilatation, ileus vs ogilvies vs distal obstruction in rectum. CT scan pending. (Korina Foley) PFSH Past Medical History htn copd asthma Past Surgical History None per Patient (Korina Foley) Coded Allergies: No Known Allergies (Unverified , 09/24/16) Family History Denies any family history of medical issues. Social History Consult (Korina Foley) Review of Systems ROS noncontributory, intubated (Korina Foley) GI Exam Vitals I&O Vital Signs Date Time Temp Pulse Resp B/P Pulse Ox O2 Delivery O2 Flow Rate FiO2 10/01/16 11:22 90 40 10/01/16 09:28 93 40 10/01/16 08:00 98.4 66 18 110/67 92 10/01/16 07:30 66 18 115/69 92 10/01/16 07:00 67 18 109/66 92 10/01/16 06:00 67 10/01/16 04:04 93 40 10/01/16 04:00 40 10/01/16 04:00 69 10/01/16 04:00 98.7 69 18 109/65 94 10/01/16 02:00 68 10/01/16 01:26 99 40 10/01/16 01:02 93 45 10/01/16 00:00 99.3 67 18 107/64 94 10/01/16 00:00 67 10/01/16 00:00 45 09/30/16 22:00 75 09/30/16 21:47 92 45 09/30/16 21:45 45 09/30/16 20:37 96 35 09/30/16 20:00 35 09/30/16 20:00 100.3 74 18 92/52 91 09/30/16 20:00 74 09/30/16 18:00 93 09/30/16 16:00 77 09/30/16 16:00 35 09/30/16 16:00 97.4 81 18 101/58 91 09/30/16 15:52 92 35 09/30/16 14:00 69 I/O 09/30/16 09/30/16 09/30/16 10/01/16 10/01/16 10/01/16 06:59 14:59 22:59 06:59 14:59 22:59 Intake Total 619 ml 1378 ml 1023 ml 875 ml Output Total 800 ml 850 ml 375 ml 350 ml Balance -181 ml 528 ml 648 ml 525 ml IV Total 338 ml 728 ml 432 ml 335 ml Tube Feeding 281 ml 400 ml 341 ml 290 ml Other 0 ml 250 ml 250 ml 250 ml Output Urine Total 800 ml 850 ml 375 ml 350 ml # Bowel Movements 0 0 0 0 Imaging Last Impressions Abdomen X-Ray 10/01/16 0000 Signed Impressions: Service Date/Time: September 08:42 - CONCLUSION: Diffusely dilated colon without small bowel dilatation visualized. These findings could represent ileus, Gala syndrome, or much less likely a distal obstructing process in the rectum. Oliver Garcia MD Chest X-Ray 09/29/16 0000 Signed Impressions: Service Date/Time: Thursday, September 29, 2016 04:13 - CONCLUSION: 1. The patient remains intubated and the nasogastric tube is in place. 2. The lungs are clear. Leo Tomas MD Laboratory Test 10/01/16 05:11 White Blood Count 18.1 TH/MM3 Red Blood Count 4.07 MIL/MM3 Hemoglobin 12.3 GM/DL Hematocrit 37.1 % Mean Corpuscular Volume 91.0 FL Mean Corpuscular Hemoglobin 30.1 PG Mean Corpuscular Hemoglobin 33.1 % Concent Red Cell Distribution Width 13.3 % Platelet Count 254 TH/MM3 Mean Platelet Volume 9.1 FL Neutrophils (%) (Auto) 90.9 % Lymphocytes (%) (Auto) 4.8 % Monocytes (%) (Auto) 4.1 % Eosinophils (%) (Auto) 0.0 % Basophils (%) (Auto) 0.2 % Neutrophils # (Auto) 16.4 TH/MM3 Lymphocytes # (Auto) 0.9 TH/MM3 Monocytes # (Auto) 0.7 TH/MM3 Eosinophils # (Auto) 0.0 TH/MM3 Basophils # (Auto) 0.0 TH/MM3 CBC Comment AUTO DIFF Differential Comment AUTO DIFF CONFIRMED Sodium Level 141 MEQ/L Potassium Level 4.1 MEQ/L Chloride Level 100 MEQ/L Carbon Dioxide Level 35.8 MEQ/L Anion Gap 5 MEQ/L Blood Urea Nitrogen 29 MG/DL Creatinine 0.72 MG/DL Estimat Glomerular Filtration 84 ML/MIN Rate Random Glucose 134 MG/DL Calcium Level 8.9 MG/DL Date/Time Procedure Status Source Growth 09/27/16 10:03 Aerobic Blood Culture - Preliminary Resulted Blood Peripheral NO GROWTH IN 4 DAYS 09/27/16 10:03 Anaerobic Blood Culture - Final Resulted Blood Peripheral ONLY AEROBIC CULTURE ORDERED Physical Examination HEENT: normocephalic; atraumatic; no jaundice. intubated CHEST: wheezes CARDIAC: RRR ABDOMEN: firm, distended, nontender; no hepatosplenomegaly; bowel sounds hypoactive EXTREMITIES: No clubbing, cyanosis, or edema. SKIN: Normal; no rash; no jaundice. 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 KUB 10-01-16--> Diffusely dilated colon without small bowel dilatation visualized. These findings could represent ileus, Gala syndrome, or much less likely a distal obstructing process in the rectum. Plan is for decompressive colonoscopy and trying to get in touch with pt's daughter Gisel Hilton [phone] @1250 to get consent for procedure but went right to voicemail - acute hypercarbic resp failure, acute COPD exacerbation, per [facility] PLAN - decompressive colonoscopy today - obtain consents - hold TF - supportive care - further recs to follow This pt seen by myself and Dr Ratliff and this note is written on her behalf ( Korina Foley) Physician Comments seen, examined agree with above discussed with daughter -agree with colonoscopy (Corrina Ratliff MD) Korina Foley Oct 01, 2016 12:57 Corrina Ratliff MD Oct 01, 2016 19:53
--- NOTE | 2016-10-01 14:47 | RADRPT ---
EXAM DATE/TIME: 10/01/2016 14:17 [facility] COMPARISON: No previous studies available for comparison. INDICATIONS : Colonic ileus verus obstruction. ORAL CONTRAST: No oral contrast ingested. RADIATION DOSE: 11.22 CTDIvol (mGy) MEDICAL HISTORY : Hypertension. Chronic obstructive pulmonary disease. Asthma. SURGICAL HISTORY : Tubal ligation. ENCOUNTER: Initial ACUITY: 1 day PAIN SCALE: Non-responsive LOCATION: abdomen. TECHNIQUE: Volumetric scanning of the abdomen and pelvis was performed. Using automated exposure control and ad justment of the mA and/or kV according to patient size, radiation dose was kept as low as reasonably achievable to obtain optimal diagnostic quality images. DICOM format image data is available electro nically for review and comparison. FINDINGS: There is a moderate to severe colonic ileus with multiple air-fluid levels noted in the colon. Colon measures up to about 7.7 cm in diameter. There is less severe dilatation of the distal colon but air is seen in the rectosigmoid. There is also a mild small bowel ileus. Lung bases demonstrates some ill-defined infiltrate right lung base with associated peribronchial thi ckening. No significant pleural fluid. No acute findings in this liver, spleen, adrenals, kidneys or pancreas. NG tip in distal stomach. There is mild anasarca. No significant free fluid. No free air. CONCLUSION: 1. Moderate to severe colonic ileus. NG tip in distal stomach. Lawson catheter in bladder. 2. Mild small bowel ileus. No free air or free fluid. 3. Mild anasarca. 4. Moderate infiltrate right lung base. Jay Jay Burgess MD on October 01, 2016 at 14:40 Board Certified Radiologist. This report was verified electronically.
--- NOTE | 2016-10-01 17:13 | GIPROC ---
[facility] [address] [facility], [address] COLONOSCOPY PROCEDURE REPORT EXAM DATE: 10/01/2016 PATIENT NAME: Lyudmila Oseguera MR #: [id number] BIRTHDATE: 1960 ENDOSCOPIST: Corrina Ratliff MD ORDER #: [id number] [employer] TECHNICIAN: Yani Garcia and Petra Rivers STATUS: inpatient INDICATIONS: The patient is a 56 yr old female here for a colonoscopy due to ileus, dilated colon PROCEDURE PERFORMED: colonoscopy with decompression MEDICATIONS: Per Anesthesia and None. PREP QUALITY: suboptimal PREP TYPE:Other: ESTIMATED BLOOD LOSS: None CONSENT: The patient understands the risks and benefits of the procedure and understands that these risks include, but are not limited to: sedation, allergic reaction, infection, perforation and/or bleeding. Alternative means of evaluation and treatment include, among others: physical exam, x-rays, and/or surgical intervention. The patient elects to proceed with this endoscopic procedure. medical equipment was checked for proper function. Hand hygiene and appropriate measures for infection prevention was taken. After the risks, benefits and alternatives of the procedure were thoroughly explained, Informed consent was verified, confirmed and timeout was successfully executed by the treatment team. A digital exam revealed internal hemorrhoids The Pentax [id number] endoscope was introduced through the anus and advanced to the cecum, which was identified by both the appendix and ileocecal valve. The instrument was then slowly withdrawn as the colon was fully examined. COLON FINDINGS: Poor prep colonic decompression-marked improvement. Retroflexed views revealed internal hemorrhoids and Retroflexed views revealed small internal hemorrhoids The scope was then completely withdrawn from the patient and the procedure terminated. ADVERSE EVENTS: There were no complications. IMPRESSIONS: 1. Poor prep colonic decompression-marked improvement 2. Retroflexed views revealed internal hemorrhoids 3. Retroflexed views revealed small internal hemorrhoids 4. Revealed internal hemorrhoids RECOMMENDATIONS: Rectal tube enemas ngt abd x ray in am RECALL: Colonoscopy Corrina Ratliff MD eSigned: Corrina Ratliff MD 10/01/2016 5:13 PM cc:
[2016-10-01] MEDS ORDERED: PROPOFOL 200 MG/20 ML AMP IV ONE (17:43)
[2016-10-01] MEDS: ENOXAPARIN SODIUM 40 MG/0.4 ML SYRINGE SQ SCH (17:59)
--- NOTE | 2016-10-01 19:53 | HHI.PR ---
Subjective Remarks 56 YOWF with VDRF, sedated no Fever ON PCV, Fi02 40% Off Nimbex Sedated with Diprivan,Versed and Fentanyl has abd distension. Objective Vital Signs Vital Signs Date Time Temp Pulse Resp B/P Pulse Ox O2 Delivery O2 Flow Rate FiO2 10/01/16 18:00 68 10/01/16 18:00 68 14 118/68 100 10/01/16 17:00 76 14 111/55 98 10/01/16 17:00 76 10/01/16 16:00 40 10/01/16 16:00 96 10/01/16 16:00 99.8 96 14 137/79 98 10/01/16 15:30 99 14 152/85 90 10/01/16 15:00 96 14 143/82 91 10/01/16 15:00 96 10/01/16 14:48 93 40 10/01/16 14:29 101 15 155/78 99 10/01/16 14:00 77 10/01/16 14:00 77 14 111/67 90 10/01/16 13:30 82 14 118/70 89 10/01/16 13:30 82 10/01/16 13:00 83 10/01/16 13:00 83 14 125/75 90 10/01/16 12:30 88 10/01/16 12:30 88 14 128/77 91 10/01/16 12:00 40 10/01/16 12:00 91 10/01/16 12:00 99.3 91 14 119/68 91 10/01/16 11:30 81 10/01/16 11:30 81 14 116/69 90 10/01/16 11:22 90 40 10/01/16 11:00 90 10/01/16 11:00 90 14 142/78 90 10/01/16 10:30 99 15 155/89 88 10/01/16 10:30 99 10/01/16 10:00 87 10/01/16 10:00 87 14 121/69 90 10/01/16 09:30 100 18 154/74 93 10/01/16 09:30 100 10/01/16 09:28 93 40 10/01/16 09:01 97 18 183/92 95 10/01/16 09:00 101 10/01/16 09:00 101 25 77 10/01/16 08:30 66 10/01/16 08:00 98.4 66 18 110/67 92 10/01/16 08:00 66 10/01/16 08:00 40 10/01/16 07:30 66 10/01/16 07:30 66 18 115/69 92 10/01/16 07:00 67 10/01/16 07:00 67 18 109/66 92 10/01/16 06:00 67 10/01/16 04:04 93 40 10/01/16 04:00 40 10/01/16 04:00 69 10/01/16 04:00 98.7 69 18 109/65 94 10/01/16 02:00 68 10/01/16 01:26 99 40 10/01/16 01:02 93 45 10/01/16 00:00 99.3 67 18 107/64 94 10/01/16 00:00 67 10/01/16 00:00 45 09/30/16 22:00 75 09/30/16 21:47 92 45 09/30/16 21:45 45 09/30/16 20:37 96 35 09/30/16 20:00 35 09/30/16 20:00 100.3 74 18 92/52 91 09/30/16 20:00 74 I/O 09/30/16 09/30/16 09/30/16 10/01/16 10/01/16 10/01/16 07:00 15:00 23:00 07:00 15:00 23:00 Intake Total 619 ml 1378 ml 1023 ml 875 ml 124 ml Output Total 800 ml 850 ml 375 ml 350 ml 775 ml Balance -181 ml 528 ml 648 ml 525 ml -651 ml IV Total 338 ml 728 ml 432 ml 335 ml 124 ml Tube Feeding 281 ml 400 ml 341 ml 290 ml 0 ml Other 0 ml 250 ml 250 ml 250 ml 0 ml Output Urine Total 800 ml 850 ml 375 ml 350 ml 775 ml # Bowel Movements 0 0 0 0 0 Result Diagram: 10/01/1651010/01/16510 Objective Remarks GENERAL: MBMN WF, on Vent SKIN: Warm and dry. HEAD: Normocephalic. EYES: No scleral icterus. No injection or drainage. NECK: Supple, trachea midline. No JVD or lymphadenopathy. CARDIOVASCULAR: Regular rate and rhythm without murmurs, gallops, or rubs. RESPIRATORY: Breath sounds equal bilaterally. No accessory muscle use. GASTROINTESTINAL: Abdomen soft, non-tender, nondistended. MUSCULOSKELETAL: No cyanosis, or edema. BACK: Nontender without obvious deformity. No CVA tenderness. A/P Assessment and Plan VDRF COPD Exac HTN Nicotine use PLAN sedation with Fentanyl, Diprivan and Versed Aerosol nebs cont Steroids Cont Vent support Abdirahman Marquez MD Oct 01, 2016 19:53
[2016-10-02] VITALS (35 sets, daily range): BP systolic 99–174; BP diastolic 59–87; PULSE 55–100; RESP 14–21; TEMP 98.4–99; O2SAT 90–99
[2016-10-02] MEDS: RESP: ALBUTEROL 2.5 MG/IPRATROPIUM 0.5 MG NEB (SCH) NEB ×6 (00:33→20:18)
[2016-10-02] MEDS: FREE WATER G-TUBE SCH ×2 (00:47→08:25)
[2016-10-02] MEDS: fentaNYL 2,500 MCG/NS 250 ML IV SCH ×2 (00:47→17:19)
[2016-10-02] MEDS: MIDAZOLAM 100 MG/NS 100 ML DRIP Premix IV SCH ×2 (03:57→17:19)
[2016-10-02] MEDS: PIPERACIL-TAZO 4.5 GM PREMIX 100 ML IV SCH ×4 (03:57→21:16)
[2016-10-02] MEDS: DILTIAZEM HCL 60 MG TAB PO SCH ×5 (03:58→21:15)
[2016-10-02] MEDS: methylPREDNISolone SOD SUCC 125 MG/2 ML VIAL IV SCH ×3 (03:58→21:16)
--- NOTE | 2016-10-02 05:36 | RADRPT ---
EXAM DATE/TIME: 10/02/2016 04:17 [facility] COMPARISON: CHEST SINGLE AP, September 29, 2016, 4:13. INDICATIONS : Respiratory failure, COPD MEDICAL HISTORY : Chronic obstructive pulmonary disease. SURGICAL HISTORY : None. ENCOUNTER: Subsequent ACUITY: 4 - 6 days PAIN SCORE: Non-responsive. LOCATION: Bilateral chest FINDINGS: A single view of the chest demonstrates the lungs to be symmetrically aerated without evidence of mas s, infiltrate or effusion. The cardiomediastinal contours are unremarkable. Osseous structures are intact. Support lines and tubes are in satisfactory position. CONCLUSION: 1. No acute cardiopulmonary disease. Qasim Zarate MD on October 02, 2016 at 5:35 Board Certified Radiologist. This report was verified electronically.
[2016-10-02] MEDS: INSULIN NovoLIN REGULAR SUPPLEMENTAL SCALE SQ SCH ×5 (06:00→23:39)
[2016-10-02] MEDS: METOCLOPRAMIDE HCL 10 MG/2 ML VIAL IV PUSH SCH ×3 (06:42→21:16)
[2016-10-02 06:59] LABS: AUTOMATED NEUTROPHIL # 19.1 TH/MM3 (1.8-7.7); BASOPHIL % 0.1 % (0.0-2.0); HEMATOCRIT 34.7 % (35.0-46.0); LYMPH % 4.1 % (9.0-44.0); LYMPHOCYTE # 0.9 TH/MM3 (1.0-4.8); MEAN CELL VOLUME 89.8 FL (80.0-100.0); MEAN CORPUSCULAR HEMOGLOBIN 30.1 PG (27.0-34.0); MEAN CORPUSCULAR HGB CONC 33.6 % (32.0-36.0); MONO % 6.8 % (0.0-8.0); PLATELET COUNT 230 TH/MM3 (150-450); RED BLOOD COUNT 3.87 MIL/MM3 (4.00-5.30); WHITE BLOOD COUNT 21.5 TH/MM3 (4.0-11.0)
[2016-10-02 07:04] LABS: HEMO FLAGS AUTO DIFF
[2016-10-02 07:35] LABS: ALKALINE PHOSPHATASE 45 U/L (45-117); ALT (GPT) 79 U/L (10-53); ANION GAP 5 MEQ/L (5-15); AST (GOT) 37 U/L (15-37); BICARBONATE 35.2 MEQ/L (21.0-32.0); BLOOD UREA NITROGEN 25 MG/DL (7-18); CHLORIDE 98 MEQ/L (98-107); GLOMERULAR FILTRATION RATE 91 ML/MIN (>89); MAGNESIUM 2.5 MG/DL (1.5-2.5); POTASSIUM 3.9 MEQ/L (3.5-5.1); SODIUM (NA) 138 MEQ/L (136-145); TOTAL BILIRUBIN ADULT 0.4 MG/DL (0.2-1.0)
[2016-10-02 07:36] LABS: BANDS 4 % (0-6); MYELOCYTES 2 % (0-0); POLYS (SEG NEUTROPHILS) 87 % (16-70); SCAN/DIFF FINAL DIFF MANUAL; TOXIC VACUOLATION PRESENT (NONE SEEN); WBC DIFF SAMPLE 100
[2016-10-02 07:37] LABS: PLATELET ESTIMATE SMEAR NORMAL (NORMAL); PLATELET MORPHOLOGY NORMAL (NORMAL)
[2016-10-02] MEDS: DOCUSATE SODIUM 100 MG/10 ML UDC PO SCH ×2 (08:24→21:15)
[2016-10-02] MEDS: SENNOSIDES SYRUP 8.8 MG/5 ML CUP PO SCH (08:24)
[2016-10-02] MEDS: LACTULOSE SYRUP 20 GM/30 ML CUP PO SCH ×3 (08:24→17:49)
[2016-10-02] MEDS: LEVOFLOXACIN 750 MG PREMIX INJ 150 ML IV SCH (08:25)
[2016-10-02] MEDS: PANTOPRAZOLE SODIUM 40 MG VIAL IV PUSH SCH (08:25)
[2016-10-02] MEDS: SODIUM CHLORIDE 0.9% FLUSH 10 ML FLUSH IV FLUSH SCH ×2 (08:25→21:16)
[2016-10-02] MEDS: TIOTROPIUM BROMIDE 18 MCG INH INH SCH ×2 (08:26→08:28)
[2016-10-02] MEDS: CHLORHEXIDINE 0.12% (ORAL KIT) 15 ML CUP MT SCH ×2 (08:26→21:18)
[2016-10-02] MEDS: RESP: BUDESONIDE 0.5 MG/2 ML NEB NEB SCH ×2 (08:49→20:18)
--- NOTE | 2016-10-02 09:15 | HHI.CCPN ---
Subjective Remarks/Hospital Course The patient is a 56-year-old female with past medical history of COPD and hypertension who presented to the [facility] ED with a 2-week history of progressive shortness of breath. In addition, she reports a dry cough and wheezing. The patient denies any constitutional symptoms. In addition she denies any nausea, vomiting, or abdominal pain. No history of orthopnea, PND or edema of lower extremities. She denies any use of oxygen at home; however, she uses nebulizers and is on Symbicort. In the ED the patient was given IV steroids and bronchodilator treatments. She was in the ER last night with the same presentation and after several hours of treatments she was discharged with a prescription for a tapered dose of prednisone. In addition, she was given a new albuterol inhaler. She came back a few hours later in respiratory distress. A chest x-ray from last night showed no acute disease. No laboratory data or blood gases available today; however, ABG from last night on a BiPAP 02/03 with 35% FIO2 showed a pH of 7.37, CO2 40, pAO2 of 105, bicarb 23 and saturation of 96%. 09/26 Patient was intubated yesterday for resp distress sedated with Versed 5mg and low doses Fentanyl and Diprivan. Afebrile. Given 1L NS last night for hypotension 09/27 Patient is sedated with Fentanyl and intubated. Afebrile. Patient was initially placed on PC/AC last night however his ABG showed acute resp acidosis with PH: 7.26,COP2 52 he was placed back on PRVC/AC mode. 09/28 Patient remains sedated with Fentanyl and versed placed on Nimbex overnight. Afebrile. WBC is trending down. 09/29 No events overnight. Sedated and intubated. Hypertensive. 09/30 Patient remains intubated and sedated. Off Nimbex. Afebrile. 10/01: Patient has significant bilateral wheezing. Abdominal distention increasing. No bowel movement since admission. KUB pending. Reduced RR to 14 to avoid air trapping 10/02 No events overnight, sedated with Fentanyl and Versed. Afebrile. s/p colonoscopy yesterday for colonic decompression, rectal tube to suction Objective Vital Signs Date Time Temp Pulse Resp B/P Pulse Ox O2 Delivery O2 Flow Rate FiO2 10/02/16 08:50 95 40 10/02/16 06:00 61 10/02/16 04:00 98.6 14 174/87 Intake and Output 10/01/16 10/01/16 10/01/16 07:59 15:59 23:59 Intake Total 875 ml 124 ml 339 ml Output Total 350 ml 775 ml 300 ml Balance 525 ml -651 ml 39 ml Result Diagram: 10/02/16 0638 10/02/16 0638 Other Results Laboratory Tests Test 10/02/16 06:38 White Blood Count 21.5 TH/MM3 Red Blood Count 3.87 MIL/MM3 Hemoglobin 11.7 GM/DL Hematocrit 34.7 % Mean Corpuscular Volume 89.8 FL Mean Corpuscular Hemoglobin 30.1 PG Mean Corpuscular Hemoglobin 33.6 % Concent Red Cell Distribution Width 13.0 % Platelet Count 230 TH/MM3 Mean Platelet Volume 8.6 FL Neutrophils (%) (Auto) 89.0 % Lymphocytes (%) (Auto) 4.1 % Monocytes (%) (Auto) 6.8 % Eosinophils (%) (Auto) 0.0 % Basophils (%) (Auto) 0.1 % Neutrophils # (Auto) 19.1 TH/MM3 Lymphocytes # (Auto) 0.9 TH/MM3 Monocytes # (Auto) 1.5 TH/MM3 Eosinophils # (Auto) 0.0 TH/MM3 Basophils # (Auto) 0.0 TH/MM3 CBC Comment AUTO DIFF Differential Total Cells 100 Counted Neutrophils % (Manual) 87 % Band Neutrophils % 4 % Lymphocytes % 2 % Monocytes % 5 % Neutrophils # (Manual) 20.0 TH/MM3 Myelocytes 2 % Differential Comment FINAL DIFF MANUAL Toxic Vacuolation PRESENT Platelet Estimate NORMAL Platelet Morphology Comment NORMAL Red Cell Morphology Comment NORMAL Sodium Level 138 MEQ/L Potassium Level 3.9 MEQ/L Chloride Level 98 MEQ/L Carbon Dioxide Level 35.2 MEQ/L Anion Gap 5 MEQ/L Blood Urea Nitrogen 25 MG/DL Creatinine 0.67 MG/DL Estimat Glomerular Filtration 91 ML/MIN Rate Random Glucose 116 MG/DL Calcium Level 8.1 MG/DL Magnesium Level 2.5 MG/DL Total Bilirubin 0.4 MG/DL Aspartate Amino Transf 37 U/L (AST/SGOT) Alanine Aminotransferase 79 U/L (ALT/SGPT) Alkaline Phosphatase 45 U/L Total Protein 5.5 GM/DL Albumin 2.5 GM/DL Imaging Last Impressions Chest X-Ray 10/02/16 0600 Signed Impressions: Service Date/Time: Sunday, October 02, 2016 04:17 - CONCLUSION: 1. No acute cardiopulmonary disease. Qasim Zarate MD Abdomen/Pelvis CT 10/01/16 0000 Signed Impressions: Service Date/Time: , October 01, 2016 14:17 - CONCLUSION: 1. Moderate to severe colonic ileus. NG tip in distal stomach. Lawson catheter in bladder. 2. Mild small bowel ileus. No free air or free fluid. 3. Mild anasarca. 4. Moderate infiltrate right lung base. Jay Jay Burgess MD Abdomen X-Ray 10/01/16 0000 Signed Impressions: Service Date/Time: , October 01, 2016 08:42 - CONCLUSION: Diffusely dilated colon without small bowel dilatation visualized. These findings could represent ileus, Gala syndrome, or much less likely a distal obstructing process in the rectum. Oliver Garcia MD Objective Remarks GENERAL: Patient is 56 yo intubated and sedated SKIN: Warm and dry. HEAD: Normocephalic. EYES: No scleral icterus. No injection or drainage. NECK: Supple, trachea midline. No JVD or lymphadenopathy. CARDIOVASCULAR: Regular rate and rhythm without murmurs, gallops, or rubs. RESPIRATORY: Breath sounds equal bilaterally. Coarse BS, diffuse wheezing GASTROINTESTINAL: Abdomen distended. Tense. No BM MUSCULOSKELETAL: No cyanosis, or edema. Neuro: Sedated. Moves all extremities on lightening sedation A/P Assessment and Plan Acute hypercarbic respiratory failure Acute COPD exacerbation. Hypertension. Bronchospasm Leukocytosis History of tobacco abuse. Plan Neuro: On Fentanyl and Versed infusions for sedation and vent synchrony. Off Nimbex Start Precedex to facilitate ventilator weaning ventilatory. Daily sedation vacation if tolerated Pulm: Continue with vent support and maintain sats > 90%. Bronchodilators, Pulmicort nebulizers q. 12, Spiriva one cap daily. taper Iv sternoids- Decrease Solu-Medrol 40mg Q8, ICU vent bundle. Start SBT trials Pulm is following- Dr. Marquez CV: On Cardizem 60mg QID, Monitor HR and BP keep MAP>65mmHg. : Monitor renal function, I/O's and electrolyte replacement as needed. GI: On Protonix 40 mg IV daily. Continue tube feeds- Rsume tube feeds ( Glucerna 1.5 @45ml/hr) if KUB is negative. Recheck Check KUB today- on Reglan 10 mg IV every 8 hours. s/p colonoscopy 10/01 for colonic decompression -showed internal hemorrhoids. Continue aggressive bowel regimen ID: On Levaquin, Zosyn, Monitor for signs of infections ( Fever, WBC) 09/27 BC: NGTD 09/26, Sputum cx: normal growth, Urine : NGTD Endo: SSI with accuchecks. Heme: Monitor CBC. GI prophylaxis with Protonix 40 mg daily and DVT prophylaxis with SCDs and Lovenox 40 mg subcu daily. CCT 30 Carmita Oconnell MD Oct 02, 2016 09:15
--- NOTE | 2016-10-02 10:07 | RADRPT ---
EXAM DATE/TIME: 10/02/2016 09:06 [facility] COMPARISON: ABDOMEN KUB ONLY, October 01, 2016, 8:42. INDICATIONS : Evaluate for ileus. MEDICAL HISTORY : Hypertension. Chronic obstructive pulmonary disease. Asthma. SURGICAL HISTORY : Tubal ligation. ENCOUNTER: Subsequent ACUITY: 1 week PAIN SCORE: 0/10 LOCATION: Bilateral Abdomen. FINDINGS: Nasogastric tube is across the GE junction. There is moderate gaseous distention of probably colon t he rectal tube in place. This is most suggestive of an ileus. There is no free air. CONCLUSION: Ileus, colon is dilated to 9 cm. Rico Boston MD FACR on October 02, 2016 at 10:01 Board Certified Radiologist. This report was verified electronically.
[2016-10-02] MEDS: ENOXAPARIN SODIUM 40 MG/0.4 ML SYRINGE SQ SCH (12:11)
--- NOTE | 2016-10-02 14:39 | HHI.GIFU ---
Subjective Remarks Sedated on the ventilator. No vomiting. Had 700cc liquid stool from rectal tube yesterday, but only about 100cc this shift. Still with significant distention. NPO. (Jennifer Coleman) Objective Vitals I&O Vital Signs Date Time Temp Pulse Resp B/P Pulse Ox O2 Delivery O2 Flow Rate FiO2 10/02/16 13:18 96 40 10/02/16 12:30 62 10/02/16 12:30 62 14 118/72 94 10/02/16 12:00 98.4 68 14 138/74 94 10/02/16 12:00 68 10/02/16 12:00 40 10/02/16 11:30 68 21 140/79 91 10/02/16 11:30 68 10/02/16 11:00 55 14 112/61 96 10/02/16 11:00 55 10/02/16 10:30 56 10/02/16 10:30 56 14 104/60 97 10/02/16 10:00 57 10/02/16 10:00 57 14 99/59 98 10/02/16 09:01 67 10/02/16 09:00 67 14 118/68 95 10/02/16 09:00 70 10/02/16 08:50 95 40 10/02/16 08:30 57 14 108/67 94 10/02/16 08:30 57 10/02/16 08:00 98.6 56 14 106/64 95 10/02/16 08:00 56 10/02/16 08:00 40 10/02/16 07:30 60 14 112/68 95 10/02/16 07:30 60 10/02/16 07:00 64 14 122/73 94 10/02/16 07:00 64 10/02/16 06:00 61 10/02/16 04:23 99 40 10/02/16 04:00 79 10/02/16 04:00 98.6 79 14 174/87 99 10/02/16 04:00 40 10/02/16 02:00 62 10/02/16 00:33 94 40 10/02/16 00:00 66 10/02/16 00:00 40 10/02/16 00:00 99.0 66 14 109/65 95 10/01/16 22:00 65 10/01/16 20:37 93 40 10/01/16 20:00 72 10/01/16 20:00 98.7 72 8 136/76 99 10/01/16 20:00 40 10/01/16 18:00 68 10/01/16 18:00 68 14 118/68 100 10/01/16 17:00 76 14 111/55 98 10/01/16 17:00 76 10/01/16 16:00 40 10/01/16 16:00 96 10/01/16 16:00 99.8 96 14 137/79 98 10/01/16 15:30 99 14 152/85 90 10/01/16 15:00 96 14 143/82 91 10/01/16 15:00 96 10/01/16 14:48 93 40 I/O 10/01/16 10/01/16 10/01/16 10/02/16 10/02/16 10/02/16 07:00 15:00 23:00 07:00 15:00 23:00 Intake Total 875 ml 124 ml 339 ml 750 ml Output Total 350 ml 775 ml 300 ml 2250 ml Balance 525 ml -651 ml 39 ml -1500 ml IV Total 335 ml 124 ml 279 ml 500 ml Tube Feeding 290 ml 0 ml Other 250 ml 0 ml 60 ml 250 ml Output Urine Total 350 ml 775 ml 300 ml 1550 ml Stool Total 700 ml # Bowel Movements 0 0 Laboratory Laboratory Tests Test 10/02/16 06:38 White Blood Count 21.5 Red Blood Count 3.87 Hemoglobin 11.7 Hematocrit 34.7 Mean Corpuscular Volume 89.8 Mean Corpuscular Hemoglobin 30.1 Mean Corpuscular Hemoglobin 33.6 Concent Red Cell Distribution Width 13.0 Platelet Count 230 Mean Platelet Volume 8.6 Neutrophils (%) (Auto) 89.0 Lymphocytes (%) (Auto) 4.1 Monocytes (%) (Auto) 6.8 Eosinophils (%) (Auto) 0.0 Basophils (%) (Auto) 0.1 Neutrophils # (Auto) 19.1 Lymphocytes # (Auto) 0.9 Monocytes # (Auto) 1.5 Eosinophils # (Auto) 0.0 Basophils # (Auto) 0.0 CBC Comment AUTO DIFF Differential Total Cells 100 Counted Neutrophils % (Manual) 87 Band Neutrophils % 4 Lymphocytes % 2 Monocytes % 5 Neutrophils # (Manual) 20.0 Myelocytes 2 Differential Comment FINAL DIFF MANUAL Toxic Vacuolation PRESENT Platelet Estimate NORMAL Platelet Morphology Comment NORMAL Red Cell Morphology Comment NORMAL Sodium Level 138 Potassium Level 3.9 Chloride Level 98 Carbon Dioxide Level 35.2 Anion Gap 5 Blood Urea Nitrogen 25 Creatinine 0.67 Estimat Glomerular Filtration 91 Rate Random Glucose 116 Calcium Level 8.1 Magnesium Level 2.5 Total Bilirubin 0.4 Aspartate Amino Transf 37 (AST/SGOT) Alanine Aminotransferase 79 (ALT/SGPT) Alkaline Phosphatase 45 Total Protein 5.5 Albumin 2.5 Imaging Last Impressions Chest X-Ray 10/02/16 0600 Signed Impressions: Service Date/Time: Sunday, October 02, 2016 04:17 - CONCLUSION: 1. No acute cardiopulmonary disease. Qasim Zarate MD Abdomen X-Ray 10/02/16 0000 Signed Impressions: Service Date/Time: Sunday, October 02, 2016 09:06 - CONCLUSION: Ileus, colon is dilated to 9 cm. Rico Boston MD FACR Abdomen/Pelvis CT 10/01/16 0000 Signed Impressions: Service Date/Time: September 14:17 - CONCLUSION: 1. Moderate to severe colonic ileus. NG tip in distal stomach. Lawson catheter in bladder. 2. Mild small bowel ileus. No free air or free fluid. 3. Mild anasarca. 4. Moderate infiltrate right lung base. Jay Jay Burgess MD Physical Exam HEENT: Normocephalic; atraumatic; no jaundice. CHEST: OETT to vent. Expiratory wheezing. CARDIAC: RRR ABDOMEN: Semifirm, distended no hepatosplenomegaly; bowel sounds are hypoactive. Red rectal tube to LIWS with liquid stool EXTREMITIES: Generalized edema. 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 Eyes open but not following commands. (Jennifer ColemanP) Assessment and Plan Plan ASSESSMENT - Severe colonic ileus/constipation. Abdomen/Pelvis CT (10/01/16)----> 1. Moderate to severe colonic ileus. NG tip in distal stomach. Lawson catheter in bladder. 2. Mild small bowel ileus. No free air or free fluid. 3. Mild anasarca. 4. Moderate infiltrate right lung base. S/P Decompressive colonoscopy (10/01/16)----- > 1. Poor prep colonic decompression-marked improvement 2. Retroflexed views revealed internal hemorrhoids 3. Retroflexed views revealed small internal hemorrhoids 4. Revealed internal hemorrhoids. Abdomen X-Ray (10/02/16)----> Ileus, colon is dilated to 9 cm. Red rectal tube to LIWS. 700cc out overnight, but only 100cc this shift. NPO. Remains distended. Colon dilated to 9cm. Reglan. Lactulose. Senna. Colace. - Acute hypercarbic resp failure, acute COPD exacerbation, bronchospasm, vent per CCM - Leukocytosis. WBC 21.5 - HTN per attending. PLAN - NPO for now - Rectal tube to LIWS - Cont. Reglan - Cont. Lactulose - Cont. Senna - Cont. Colace - KUB in am - ? Relistor, will d/w Dr. Ratliff - Supportive care - Further recommendations to follow based on results of above - Pt seen and examined by Dr. Ratliff and myself and this note is written on her behalf (Jennifer Coleman) Physician Comments seen, examined agree with above trial of Relistor, tap water enemas (Corrina Ratliff MD) Jennifer Coleman Oct 02, 2016 14:39 Corrina Ratliff MD Oct 02, 2016 20:52
--- NOTE | 2016-10-02 17:35 | HHI.PR ---
Subjective Remarks 56 YOWF with VDRF, sedated no Fever ON PCV, Fi02 40% Off Nimbex Sedated with,Versed and Fentanyl has abd distension., had decompressive colonoscopy yesterday Awake Objective Vital Signs Vital Signs Date Time Temp Pulse Resp B/P Pulse Ox O2 Delivery O2 Flow Rate FiO2 10/02/16 16:30 77 14 130/76 92 10/02/16 16:30 77 10/02/16 16:17 92 40 10/02/16 16:00 76 10/02/16 16:00 40 10/02/16 16:00 98.4 76 14 135/77 90 10/02/16 15:30 78 10/02/16 15:30 78 14 142/81 92 10/02/16 15:00 75 14 144/75 92 10/02/16 15:00 75 10/02/16 14:30 77 10/02/16 14:30 77 15 163/84 93 10/02/16 14:00 57 14 114/67 95 10/02/16 14:00 57 10/02/16 13:30 56 14 111/67 96 10/02/16 13:30 56 10/02/16 13:18 96 40 10/02/16 13:00 60 10/02/16 13:00 60 14 117/72 96 10/02/16 12:30 62 10/02/16 12:30 62 14 118/72 94 10/02/16 12:00 98.4 68 14 138/74 94 10/02/16 12:00 68 10/02/16 12:00 40 10/02/16 11:30 68 21 140/79 91 10/02/16 11:30 68 10/02/16 11:00 55 14 112/61 96 10/02/16 11:00 55 10/02/16 10:30 56 10/02/16 10:30 56 14 104/60 97 10/02/16 10:00 57 10/02/16 10:00 57 14 99/59 98 10/02/16 09:01 67 10/02/16 09:00 67 14 118/68 95 10/02/16 09:00 70 10/02/16 08:50 95 40 10/02/16 08:30 57 14 108/67 94 10/02/16 08:30 57 10/02/16 08:00 98.6 56 14 106/64 95 10/02/16 08:00 56 10/02/16 08:00 40 10/02/16 07:30 60 14 112/68 95 10/02/16 07:30 60 10/02/16 07:00 64 14 122/73 94 10/02/16 07:00 64 10/02/16 06:00 61 10/02/16 04:23 99 40 10/02/16 04:00 79 10/02/16 04:00 98.6 79 14 174/87 99 10/02/16 04:00 40 10/02/16 02:00 62 10/02/16 00:33 94 40 10/02/16 00:00 66 10/02/16 00:00 40 10/02/16 00:00 99.0 66 14 109/65 95 10/01/16 22:00 65 10/01/16 20:37 93 40 10/01/16 20:00 72 10/01/16 20:00 98.7 72 8 136/76 99 10/01/16 20:00 40 10/01/16 18:00 68 10/01/16 18:00 68 14 118/68 100 I/O 10/01/16 10/01/16 10/01/16 10/02/16 10/02/16 10/02/16 07:00 15:00 23:00 07:00 15:00 23:00 Intake Total 875 ml 124 ml 339 ml 750 ml 782 ml Output Total 350 ml 775 ml 300 ml 2250 ml 1100 ml Balance 525 ml -651 ml 39 ml -1500 ml -318 ml IV Total 335 ml 124 ml 279 ml 500 ml 462 ml Tube Feeding 290 ml 0 ml 0 ml Other 250 ml 0 ml 60 ml 250 ml 320 ml Output Urine Total 350 ml 775 ml 300 ml 1550 ml 950 ml Stool Total 700 ml 150 ml # Bowel Movements 0 0 Result Diagram: 10/02/1663710/02/16637 Objective Remarks GENERAL: MBMN WF, on Vent SKIN: Warm and dry. HEAD: Normocephalic. EYES: No scleral icterus. No injection or drainage. NECK: Supple, trachea midline. No JVD or lymphadenopathy. CARDIOVASCULAR: Regular rate and rhythm without murmurs, gallops, or rubs. RESPIRATORY: Breath sounds equal bilaterally. No accessory muscle use. GASTROINTESTINAL: Abdomen soft, non-tender, nondistended. MUSCULOSKELETAL: No cyanosis, or edema. BACK: Nontender without obvious deformity. No CVA tenderness. A/P Assessment and Plan VDRF COPD Exac HTN Nicotine use PLAN sedation with Fentanyl, and Versed Aerosol nebs cont Steroids Cont Vent support DW family at BS Abdirahman Marquez MD Oct 02, 2016 17:35
[2016-10-03] VITALS (19 sets, daily range): BP systolic 113–151; BP diastolic 59–81; PULSE 55–107; RESP 12–22; TEMP 97.9–98.9; O2SAT 93–100
[2016-10-03] MEDS: RESP: ALBUTEROL 2.5 MG/IPRATROPIUM 0.5 MG NEB (SCH) NEB ×6 (00:32→23:38)
[2016-10-03] MEDS: DILTIAZEM HCL 60 MG TAB PO SCH ×4 (03:17→20:00)
[2016-10-03] MEDS: PIPERACIL-TAZO 4.5 GM PREMIX 100 ML IV SCH ×4 (03:17→20:12)
[2016-10-03] MEDS: methylPREDNISolone SOD SUCC 125 MG/2 ML VIAL IV SCH ×3 (03:17→20:15)
[2016-10-03] MEDS: MIDAZOLAM 100 MG/NS 100 ML DRIP Premix IV SCH ×3 (03:18→20:12)
[2016-10-03] MEDS: INSULIN NovoLIN REGULAR SUPPLEMENTAL SCALE SQ SCH ×4 (06:00→23:25)
[2016-10-03] MEDS: METOCLOPRAMIDE HCL 10 MG/2 ML VIAL IV PUSH SCH ×3 (06:11→20:16)
--- NOTE | 2016-10-03 06:29 | RADRPT ---
EXAM DATE/TIME: 10/03/2016 05:12 [facility] COMPARISON: ABDOMEN KUB ONLY, October 02, 2016, 9:06. INDICATIONS : Ileus. Distention. MEDICAL HISTORY : None. SURGICAL HISTORY : None. ENCOUNTER: Initial ACUITY: 4 - 6 days PAIN SCORE: Non-responsive. LOCATION: Bilateral lower quadrant FINDINGS: There is distention of the ascending colon to 10.5 cm increasing from the prior study. No free air is identified. A nasogastric tube is in place with its tip in the stomach. Rectal tube is in place. CONCLUSION: 1. Increasing colonic distention Qasim Zarate MD on October 03, 2016 at 6:27 Board Certified Radiologist. This report was verified electronically.
[2016-10-03 07:16] LABS: AUTOMATED NEUTROPHIL # 18.5 TH/MM3 (1.8-7.7); HEMATOCRIT 38.3 % (35.0-46.0); HEMO FLAGS AUTO DIFF; LYMPH % 3.4 % (9.0-44.0); LYMPHOCYTE # 0.7 TH/MM3 (1.0-4.8); MEAN CELL VOLUME 89.8 FL (80.0-100.0); MEAN CORPUSCULAR HEMOGLOBIN 30.4 PG (27.0-34.0); MEAN CORPUSCULAR HGB CONC 33.8 % (32.0-36.0); MONO % 5.9 % (0.0-8.0); NEUT % 90.7 % (16.0-70.0); PLATELET COUNT 253 TH/MM3 (150-450); RED BLOOD COUNT 4.27 MIL/MM3 (4.00-5.30); WHITE BLOOD COUNT 20.4 TH/MM3 (4.0-11.0)
[2016-10-03 07:23] LABS: BICARBONATE 33.6 MEQ/L (21.0-32.0); POTASSIUM 3.7 MEQ/L (3.5-5.1)
[2016-10-03 08:07] LABS: BANDS 5 % (0-6); METAMYELOCYTES 1 % (0-1); NEUTROPHIL # MANUAL DIFF 18.8 TH/MM3 (1.8-7.7); PLATELET ESTIMATE SMEAR NORMAL (NORMAL); PLATELET MORPHOLOGY NORMAL (NORMAL); POLYS (SEG NEUTROPHILS) 86 % (16-70); SCAN/DIFF FINAL DIFF MANUAL; WBC DIFF SAMPLE 100
[2016-10-03] MEDS: SODIUM CHLORIDE 0.9% FLUSH 10 ML FLUSH IV FLUSH SCH ×2 (08:19→20:16)
[2016-10-03] MEDS: LEVOFLOXACIN 750 MG PREMIX INJ 150 ML IV SCH (08:20)
[2016-10-03] MEDS: fentaNYL 2,500 MCG/NS 250 ML IV SCH (08:21)
[2016-10-03] MEDS: METHYLNALTREXONE BROMIDE 12 MG/0.6 ML VIAL SQ SCH (08:21)
[2016-10-03] MEDS: SENNOSIDES SYRUP 8.8 MG/5 ML CUP PO SCH ×2 (08:21→20:15)
[2016-10-03] MEDS: PANTOPRAZOLE SODIUM 40 MG VIAL IV PUSH SCH (08:21)
[2016-10-03] MEDS: LACTULOSE SYRUP 20 GM/30 ML CUP PO SCH ×3 (08:21→17:28)
[2016-10-03] MEDS: DOCUSATE SODIUM 100 MG/10 ML UDC PO SCH ×2 (08:21→20:15)
[2016-10-03] MEDS: TIOTROPIUM BROMIDE 18 MCG INH INH SCH (08:22)
[2016-10-03] MEDS: CHLORHEXIDINE 0.12% (ORAL KIT) 15 ML CUP MT SCH ×3 (08:22→20:00)
[2016-10-03] MEDS: RESP: BUDESONIDE 0.5 MG/2 ML NEB NEB SCH ×2 (08:41→20:29)
--- NOTE | 2016-10-03 12:36 | HHI.CCPN ---
Subjective Remarks/Hospital Course The patient is a 56-year-old female with past medical history of COPD and hypertension who presented to the [facility] ED with a 2-week history of progressive shortness of breath. In addition, she reports a dry cough and wheezing. The patient denies any constitutional symptoms. In addition she denies any nausea, vomiting, or abdominal pain. No history of orthopnea, PND or edema of lower extremities. She denies any use of oxygen at home; however, she uses nebulizers and is on Symbicort. In the ED the patient was given IV steroids and bronchodilator treatments. She was in the ER last night with the same presentation and after several hours of treatments she was discharged with a prescription for a tapered dose of prednisone. In addition, she was given a new albuterol inhaler. She came back a few hours later in respiratory distress. A chest x-ray from last night showed no acute disease. No laboratory data or blood gases available today; however, ABG from last night on a BiPAP 02/03 with 35% FIO2 showed a pH of 7.37, CO2 40, pAO2 of 105, bicarb 23 and saturation of 96%. 09/26 Patient was intubated yesterday for resp distress sedated with Versed 5mg and low doses Fentanyl and Diprivan. Afebrile. Given 1L NS last night for hypotension 09/27 Patient is sedated with Fentanyl and intubated. Afebrile. Patient was initially placed on PC/AC last night however his ABG showed acute resp acidosis with PH: 7.26,COP2 52 he was placed back on PRVC/AC mode. 09/28 Patient remains sedated with Fentanyl and versed placed on Nimbex overnight. Afebrile. WBC is trending down. 09/29 No events overnight. Sedated and intubated. Hypertensive. 09/30 Patient remains intubated and sedated. Off Nimbex. Afebrile. 10/01: Patient has significant bilateral wheezing. Abdominal distention increasing. No bowel movement since admission. KUB pending. Reduced RR to 14 to avoid air trapping 10/02 No events overnight, sedated with Fentanyl and Versed. Afebrile. s/p colonoscopy yesterday for colonic decompression, rectal tube to suction Subjective 10/03: . Plan for decompressive colonoscopy today due to 10.5 cm cecum. Patient is arousable and follows commands. FiO2 35%. Saturations 99%. No bowel movement. Objective Vital Signs Date Time Temp Pulse Resp B/P Pulse Ox O2 Delivery O2 Flow Rate FiO2 10/03/16 11:53 99 40 10/03/16 10:00 69 10/03/16 08:00 97.9 14 113/67 Intake and Output 10/02/16 10/02/16 10/03/16 08:00 16:00 00:00 Intake Total 750 ml 782 ml 390 ml Output Total 2250 ml 1100 ml 575 ml Balance -1500 ml -318 ml -185 ml Result Diagram: 10/03/16 0610/03/16 06 Imaging Last Impressions Abdomen X-Ray 10/03/16 06 Signed Impressions: Service Date/Time: Monday, October 03, 2016 05:12 - CONCLUSION: 1. Increasing colonic distention Qasim Zarate MD Chest X-Ray 10/02/16 0600 Signed Impressions: Service Date/Time: Sunday, October 02, 2016 04:17 - CONCLUSION: 1. No acute cardiopulmonary disease. Qasim Zarate MD Abdomen/Pelvis CT 10/01/16 0000 Signed Impressions: Service Date/Time: September 14:17 - CONCLUSION: 1. Moderate to severe colonic ileus. NG tip in distal stomach. Lawson catheter in bladder. 2. Mild small bowel ileus. No free air or free fluid. 3. Mild anasarca. 4. Moderate infiltrate right lung base. Jay Jay Burgess MD Objective Remarks GENERAL: 56 yo female, critically ill currently intubated and sedated SKIN: Warm and dry. No rash HEAD: Normocephalic. EYES: No scleral icterus. No injection or drainage. NECK: Supple, trachea midline. No JVD or lymphadenopathy. CARDIOVASCULAR: Regular rate and rhythm without murmurs, gallops, or rubs. RESPIRATORY: Breath sounds equal bilaterally. Coarse BS, diffuse wheezing GASTROINTESTINAL: Abdomen distended. Tense. No bowel sounds appreciated after 2 minutes in all 4 quadrants MUSCULOSKELETAL: No significant peripheral edema. Neuro: Arousable on the ventilator. Squeezes hands to command. Moves all 4 extremities spontaneously weakly. A/P Assessment and Plan Acute hypercarbic respiratory failure Acute COPD exacerbation. Hypertension. Bronchospasm Leukocytosis History of tobacco abuse. Colonic ileus Internal hemorrhoids Plan Neuro: On Fentanyl and Versed infusions for sedation and vent synchrony. Off Nimbex Start Precedex to facilitate ventilator weaning ventilatory. Daily sedation vacation if tolerated Plan to discontinue fentanyl drip and use 25 mics grams every 3 minutes. For pain. In light of ileus Pulm: Continue with vent support and maintain sats > 90%. Bronchodilators, Pulmicort nebulizers q. 12, Spiriva one cap daily. taper Iv sternoids-continue Solu-Medrol 40mg Q8, ICU vent bundle. Start SBT trials Pulm is following- Dr. Marquez CV: On Cardizem 60mg QID, Monitor HR and BP keep MAP>65mmHg. Off Lopressor and Prinivil/home medications : Monitor renal function, I/O's and electrolyte replacement as needed. GI: On Protonix 40 mg IV daily. Start PPN today goal 75 cc an hour Recheck Check KUB today- on Reglan 10 mg IV every 8 hours. s/p colonoscopy 10/01 for colonic decompression -showed internal hemorrhoids. Refuses today Measure bladder pressures every 6 hours Continue aggressive bowel regimen with docusate sodium, Senokot, polyethylene glycol and lactulose with scheduled Relistor daily ID: On Levaquin, Zosyn, Monitor for signs of infections ( Fever, WBC) 09/27 BC: NGTD 09/26, Sputum cx: normal growth, Urine : NGTD Endo: SSI with accuchecks. Heme: Monitor CBC. GI prophylaxis with Protonix 40 mg daily and DVT prophylaxis with SCDs and Lovenox 40 mg subcu daily. CCT 30 Blake Bustillo MD Oct 03, 2016 12:36
--- NOTE | 2016-10-03 13:08 | HHI.GIFU ---
Subjective Remarks sedated on a vent, rectal tube to suction with brown liquids stools, abd distended. No melena or hematochezia ([employer]) Objective Vitals I&O Vital Signs Date Time Temp Pulse Resp B/P Pulse Ox O2 Delivery O2 Flow Rate FiO2 10/03/16 11:53 99 40 10/03/16 10:00 69 10/03/16 08:42 97 40 10/03/16 08:00 40 10/03/16 08:00 97.9 66 14 113/67 96 10/03/16 08:00 66 10/03/16 06:00 92 10/03/16 04:30 94 40 10/03/16 04:00 98.6 82 14 134/77 93 10/03/16 04:00 40 10/03/16 04:00 82 10/03/16 02:00 70 10/03/16 00:32 94 40 10/03/16 00:00 40 10/03/16 00:00 85 10/03/16 00:00 98.8 85 14 138/81 93 10/02/16 22:00 80 10/02/16 20:00 98.7 77 14 141/77 95 10/02/16 20:00 77 10/02/16 20:00 40 10/02/16 19:42 95 40 10/02/16 18:00 100 10/02/16 17:30 77 10/02/16 17:00 77 10/02/16 16:30 77 14 130/76 92 10/02/16 16:30 77 10/02/16 16:17 92 40 10/02/16 16:00 76 10/02/16 16:00 40 10/02/16 16:00 98.4 76 14 135/77 90 10/02/16 15:30 78 10/02/16 15:30 78 14 142/81 92 10/02/16 15:00 75 14 144/75 92 10/02/16 15:00 75 10/02/16 14:30 77 10/02/16 14:30 77 15 163/84 93 10/02/16 14:00 57 14 114/67 95 10/02/16 14:00 57 10/02/16 13:30 56 14 111/67 96 10/02/16 13:30 56 10/02/16 13:18 96 40 I/O 10/02/16 10/02/16 10/02/16 10/03/16 10/03/16 10/03/16 07:00 15:00 23:00 07:00 15:00 23:00 Intake Total 750 ml 782 ml 390 ml 340 ml Output Total 2250 ml 1100 ml 575 ml 750 ml Balance -1500 ml -318 ml -185 ml -410 ml IV Total 500 ml 462 ml 330 ml 280 ml Tube Feeding 0 ml Other 250 ml 320 ml 60 ml 60 ml Output Urine Total 1550 ml 950 ml 475 ml 450 ml Stool Total 700 ml 150 ml 100 ml 300 ml Laboratory Laboratory Tests Test 10/03/16 06:00 White Blood Count 20.4 Red Blood Count 4.27 Hemoglobin 13.0 Hematocrit 38.3 Mean Corpuscular Volume 89.8 Mean Corpuscular Hemoglobin 30.4 Mean Corpuscular Hemoglobin 33.8 Concent Red Cell Distribution Width 13.0 Platelet Count 253 Mean Platelet Volume 8.9 Neutrophils (%) (Auto) 90.7 Lymphocytes (%) (Auto) 3.4 Monocytes (%) (Auto) 5.9 Eosinophils (%) (Auto) 0.0 Basophils (%) (Auto) 0.0 Neutrophils # (Auto) 18.5 Lymphocytes # (Auto) 0.7 Monocytes # (Auto) 1.2 Eosinophils # (Auto) 0.0 Basophils # (Auto) 0.0 CBC Comment AUTO DIFF Differential Total Cells 100 Counted Neutrophils % (Manual) 86 Band Neutrophils % 5 Lymphocytes % 3 Monocytes % 5 Neutrophils # (Manual) 18.8 Metamyelocytes 1 Differential Comment FINAL DIFF MANUAL Platelet Estimate NORMAL Platelet Morphology Comment NORMAL Red Cell Morphology Comment NORMAL Sodium Level 139 Potassium Level 3.7 Chloride Level 98 Carbon Dioxide Level 33.6 Anion Gap 7 Blood Urea Nitrogen 25 Creatinine 0.68 Estimat Glomerular Filtration 90 Rate Random Glucose 124 Calcium Level 8.2 Imaging Last Impressions Abdomen X-Ray 10/03/16599 Signed Impressions: Service Date/Time: Monday, October 03, 2016 05:12 - CONCLUSION: 1. Increasing colonic distention Qsaim Zarate MD Chest X-Ray 10/02/16599 Signed Impressions: Service Date/Time: Sunday, October 02, 2016 04:17 - CONCLUSION: 1. No acute cardiopulmonary disease. Qasim Zarate MD Abdomen/Pelvis CT 10/01/16 0000 Signed Impressions: Service Date/Time: September 14:17 - CONCLUSION: 1. Moderate to severe colonic ileus. NG tip in distal stomach. Lawson catheter in bladder. 2. Mild small bowel ileus. No free air or free fluid. 3. Mild anasarca. 4. Moderate infiltrate right lung base. Jay Jay Burgess MD Physical Exam HEENT: Normocephalic; atraumatic; no jaundice. CHEST: OETT to vent. Expiratory wheezing. CARDIAC: RRR ABDOMEN: Semifirm, distended no hepatosplenomegaly; bowel sounds are hypoactive. Red rectal tube to LIWS with liquid stool EXTREMITIES: Generalized edema. HEARING AID DISPENSER: Sedated on vent. Eyes open but not following commands. (Odessa BañuelosP ) Assessment and Plan Plan ASSESSMENT - Severe colonic ileus/constipation. ABD x-ray today with increasing colonic distentions. Abdomen/Pelvis CT (10/01/16)----> 1. Moderate to severe colonic ileus. NG tip in distal stomach. Lawson catheter in bladder. 2. Mild small bowel ileus. No free air or free fluid. 3. Mild anasarca. 4. Moderate infiltrate right lung base. S/P Decompressive colonoscopy (10/01/16)----- > 1. Poor prep colonic decompression-marked improvement 2. Retroflexed views revealed internal hemorrhoids 3. Retroflexed views revealed small internal hemorrhoids 4. Revealed internal hemorrhoids. Abdomen X-Ray (10/02/16)----> Ileus, colon is dilated to 9 cm. Red rectal tube to LIWS. NPO. Remains distended. Reglan. Lactulose. Senna. Colace. enema - Acute hypercarbic resp failure, acute COPD exacerbation, bronchospasm, vent per CCM - Leukocytosis. abx - HTN per attending. PLAN - NPO - Decompressive colonoscopy today - Obtain consents - Rectal tube to LIWS - Cont. Reglan - Cont. Lactulose - Cont. Senna - Cont. Colace - S/p enema last night - Supportive care - Further recommendations to follow based on results of above - Pt seen and examined by Dr. Ratliff and myself and this note is written on her behalf (Odessa Bañuelos) Odessa Bañuelos Oct 03, 2016 13:08 Corrina Ratliff MD Oct 03, 2016 16:04
[2016-10-03] MEDS ORDERED: PROPOFOL 200 MG/20 ML AMP IV ONE (14:36)
--- NOTE | 2016-10-03 14:49 | GIPROC ---
[facility] [address] [facility], [address] COLONOSCOPY PROCEDURE REPORT EXAM DATE: 10/03/2016 PATIENT NAME: Lyudmila Oseguera MR #: [id number] BIRTHDATE: 1960 ENDOSCOPIST: Corrina Ratliff MD ORDER #: [id number] GERIATRIC [employer]IAL WORK PROFESSOR: Carlos Alberto English and Petra Rivers STATUS: inpatient INDICATIONS: The patient is a 56 yr old female here for a colonoscopy due to ileus PROCEDURE PERFORMED: colonoscopy with decompression MEDICATIONS: Per Anesthesia and None. PREP QUALITY: suboptimal PREP TYPE:Other: ESTIMATED BLOOD LOSS: None CONSENT: The patient understands the risks and benefits of the procedure and understands that these risks include, but are not limited to: sedation, allergic reaction, infection, perforation and/or bleeding. Alternative means of evaluation and treatment include, among others: physical exam, x-rays, and/or surgical intervention. The patient elects to proceed with this endoscopic procedure. medical equipment was checked for proper function. Hand hygiene and appropriate measures for infection prevention was taken. After the risks, benefits and alternatives of the procedure were thoroughly explained, Informed consent was verified, confirmed and timeout was successfully executed by the treatment team. A digital exam revealed external hemorrhoids and revealed internal hemorrhoids The Pentax [id number] endoscope was introduced through the anus and advanced to the cecum, which was identified by both the appendix and ileocecal valve. The instrument was then slowly withdrawn as the colon was fully examined. COLON FINDINGS: Poor prep marked decopression ulcer rectum secondary rectal tube. Retroflexed views revealed internal hemorrhoids and Retroflexed views revealed small internal hemorrhoids The scope was then completely withdrawn from the patient and the procedure terminated. ADVERSE EVENTS: There were no complications. IMPRESSIONS: 1. Poor prep ulcer rectum 2. Retroflexed views revealed internal hemorrhoids 3. Retroflexed views revealed small internal hemorrhoids 4. Revealed external hemorrhoids 5. Revealed internal hemorrhoids RECOMMENDATIONS: Npo ngt d/c rectal tube continue bowel regimen RECALL: NONE Corrina Ratliff MD eSigned: Corrina Ratliff MD 10/03/2016 2:48 PM cc:
[2016-10-03] MEDS: ENOXAPARIN SODIUM 40 MG/0.4 ML SYRINGE SQ SCH (15:35)
[2016-10-03] MEDS: PROPOFOL 1000 MG/100 ML INJ 100 ML IV SCH ×2 (16:47→20:12)
[2016-10-03] MEDS ORDERED: FAT EMULSION 20% INJ 250 ML (@10 mls/hr) IV SCH (20:00)
[2016-10-03] MEDS: CLINIMIX E 4.25/5 2000 mL- >42 mls/hr IV SCH ×3 (20:13)
[2016-10-03] MEDS: FAT EMULSION 20% INJ 250 ML (@10 mls/hr) IV SCH (20:13)
[2016-10-03] MEDS: POLYETHYLENE GLYCOL 17 GM PKG NG SCH (20:16)
[2016-10-04] VITALS (18 sets, daily range): BP systolic 154–194; BP diastolic 77–106; PULSE 64–94; RESP 14–18; TEMP 97–98.7; O2SAT 9–100
[2016-10-04] MEDS: DILTIAZEM HCL 60 MG TAB PO SCH ×4 (01:45→20:17)
[2016-10-04] MEDS: PIPERACIL-TAZO 4.5 GM PREMIX 100 ML IV SCH ×4 (01:46→20:18)
[2016-10-04] MEDS: methylPREDNISolone SOD SUCC 125 MG/2 ML VIAL IV SCH ×3 (03:15→20:17)
[2016-10-04] MEDS: RESP: ALBUTEROL 2.5 MG/IPRATROPIUM 0.5 MG NEB (SCH) NEB ×5 (03:58→20:31)
--- NOTE | 2016-10-04 04:51 | RADRPT ---
EXAM DATE/TIME: 10/04/2016 03:54 [facility] COMPARISON: ABDOMEN KUB ONLY, October 03, 2016, 5:12. INDICATIONS : Evaluate for ileus. MEDICAL HISTORY : None. SURGICAL HISTORY : None. ENCOUNTER: Subsequent ACUITY: 1 week PAIN SCORE: Non-responsive. LOCATION: Bilateral Abdomen FINDINGS: There continued findings of colonic ileus descending colon measuring 11.7 cm. The findings are simila r to the prior exam. A nasogastric tube is in place with its tip in the stomach. No free air is ident ified. CONCLUSION: 1. Continued colonic ileus. There has been no significant change when compared to the prior exam. Qasim Zarate MD on October 04, 2016 at 4:48 Board Certified Radiologist. This report was verified electronically.
[2016-10-04] MEDS: METOCLOPRAMIDE HCL 10 MG/2 ML VIAL IV PUSH SCH ×3 (04:55→20:17)
[2016-10-04] MEDS: PROPOFOL 1000 MG/100 ML INJ 100 ML IV SCH ×6 (04:56→22:45)
[2016-10-04] MEDS: INSULIN NovoLIN REGULAR SUPPLEMENTAL SCALE SQ SCH ×4 (04:58→23:09)
[2016-10-04] MEDS: CHLORHEXIDINE 0.12% (ORAL KIT) 15 ML CUP MT SCH ×4 (08:00→20:00)
[2016-10-04] MEDS: METHYLNALTREXONE BROMIDE 12 MG/0.6 ML VIAL SQ SCH (08:38)
[2016-10-04] MEDS: LEVOFLOXACIN 750 MG PREMIX INJ 150 ML IV SCH (08:38)
[2016-10-04] MEDS: SODIUM CHLORIDE 0.9% FLUSH 10 ML FLUSH IV FLUSH SCH ×2 (08:38→20:17)
[2016-10-04] MEDS: DOCUSATE SODIUM 100 MG/10 ML UDC PO SCH ×2 (08:38→20:17)
[2016-10-04] MEDS: PANTOPRAZOLE SODIUM 40 MG VIAL IV PUSH SCH (08:38)
[2016-10-04] MEDS: POLYETHYLENE GLYCOL 17 GM PKG NG SCH (08:38)
[2016-10-04] MEDS: LACTULOSE SYRUP 20 GM/30 ML CUP PO SCH ×3 (08:38→17:07)
[2016-10-04] MEDS: TIOTROPIUM BROMIDE 18 MCG INH INH SCH (08:39)
[2016-10-04] MEDS: SENNOSIDES SYRUP 8.8 MG/5 ML CUP PO SCH (08:39)
[2016-10-04] MEDS: RESP: BUDESONIDE 0.5 MG/2 ML NEB NEB SCH ×2 (08:53→20:31)
[2016-10-04] MEDS ORDERED: ROCURONIUM INJ 50 MG/5 ML VIAL IV ONE (09:15)
[2016-10-04 09:37] LABS: BICARBONATE 33.1 MEQ/L (21.0-32.0); MAGNESIUM 2.7 MG/DL (1.5-2.5)
[2016-10-04] MEDS: CISATRACURIUM INJ 100 MG in SODIUM CHLOR 0.9% 250 ML INJ 240 ML IV SCH ×2 (09:43→21:03)
[2016-10-04 09:46] LABS: INDIRECT BILIRUBIN 0.2 MG/DL (0.0-0.8); TOTAL BILIRUBIN ADULT 0.3 MG/DL (0.2-1.0)
[2016-10-04 09:59] LABS: CKMB 9.8 NG/ML (0.5-3.6)
--- NOTE | 2016-10-04 10:35 | HHI.CCPN ---
Subjective Remarks/Hospital Course The patient is a 56-year-old female with past medical history of COPD and hypertension who presented to the [facility] ED with a 2-week history of progressive shortness of breath. In addition, she reports a dry cough and wheezing. The patient denies any constitutional symptoms. In addition she denies any nausea, vomiting, or abdominal pain. No history of orthopnea, PND or edema of lower extremities. She denies any use of oxygen at home; however, she uses nebulizers and is on Symbicort. In the ED the patient was given IV steroids and bronchodilator treatments. She was in the ER last night with the same presentation and after several hours of treatments she was discharged with a prescription for a tapered dose of prednisone. In addition, she was given a new albuterol inhaler. She came back a few hours later in respiratory distress. A chest x-ray from last night showed no acute disease. No laboratory data or blood gases available today; however, ABG from last night on a BiPAP 02/03 with 35% FIO2 showed a pH of 7.37, CO2 40, pAO2 of 105, bicarb 23 and saturation of 96%. 09/26 Patient was intubated yesterday for resp distress sedated with Versed 5mg and low doses Fentanyl and Diprivan. Afebrile. Given 1L NS last night for hypotension 09/27 Patient is sedated with Fentanyl and intubated. Afebrile. Patient was initially placed on PC/AC last night however his ABG showed acute resp acidosis with PH: 7.26,COP2 52 he was placed back on PRVC/AC mode. 09/28 Patient remains sedated with Fentanyl and versed placed on Nimbex overnight. Afebrile. WBC is trending down. 09/29 No events overnight. Sedated and intubated. Hypertensive. 09/30 Patient remains intubated and sedated. Off Nimbex. Afebrile. 10/01: Patient has significant bilateral wheezing. Abdominal distention increasing. No bowel movement since admission. KUB pending. Reduced RR to 14 to avoid air trapping 10/02 No events overnight, sedated with Fentanyl and Versed. Afebrile. s/p colonoscopy yesterday for colonic decompression, rectal tube to suction 10/03: . Plan for decompressive colonoscopy today due to 10.5 cm cecum. Patient is arousable and follows commands. FiO2 35%. Saturations 99%. No bowel movement. Subjective 10/04: Status post expressive colonoscopy yesterday. X-ray revealed 11.7 cm dilated: Today. Bladder pressures around 9-11. This a.m., asynchronous with the ventilator so paralyzed with rocuronium currently on a Nimbex drip. Objective Vital Signs Date Time Temp Pulse Resp B/P Pulse Ox O2 Delivery O2 Flow Rate FiO2 10/04/16 08:54 9 40 10/04/16 06:00 77 10/04/16 04:00 98.3 14 156/87 Intake and Output 10/03/16 10/03/16 10/03/16 07:59 15:59 23:59 Intake Total 340 ml 845 ml 666 ml Output Total 750 ml 1000 ml 500 ml Balance -410 ml -155 ml 166 ml Result Diagram: 10/03/16 0600 10/04/16 0823 Imaging Last Impressions Abdomen X-Ray 10/04/16 0600 Signed Impressions: Service Date/Time: Tuesday, October 04, 2016 03:54 - CONCLUSION: 1. Continued colonic ileus. There has been no significant change when compared to the prior exam. Qasim Zarate MD Chest X-Ray 10/02/16 0600 Signed Impressions: Service Date/Time: Sunday, October 02, 2016 04:17 - CONCLUSION: 1. No acute cardiopulmonary disease. Qasim Zarate MD Abdomen/Pelvis CT 10/01/16 0000 Signed Impressions: Service Date/Time: September 14:17 - CONCLUSION: 1. Moderate to severe colonic ileus. NG tip in distal stomach. Lawson catheter in bladder. 2. Mild small bowel ileus. No free air or free fluid. 3. Mild anasarca. 4. Moderate infiltrate right lung base. Jay Jay Burgess MD Objective Remarks GENERAL: 56 yo female, critically ill currently intubated and paralyzed SKIN: Warm and dry. No rash HEAD: Normocephalic. EYES: No scleral icterus. No injection or drainage. NECK: Supple, trachea midline. No JVD or lymphadenopathy. CARDIOVASCULAR: Regular rate and rhythm without murmurs, gallops, or rubs. RESPIRATORY: Breath sounds equal bilaterally. Coarse BS, diffuse wheezing GASTROINTESTINAL: Abdomen distended. Tense. No bowel sounds appreciated after 2 minutes in all 4 quadrants MUSCULOSKELETAL: No significant peripheral edema. Neuro: Paralyzed on the ventilator. A/P Assessment and Plan Acute hypercarbic respiratory failure Acute COPD exacerbation. Hypertension. Bronchospasm Leukocytosis History of tobacco abuse. Colonic ileus Internal hemorrhoids Plan Neuro: On Fentanyl and Versed infusions for sedation and vent synchrony. Resumed Nimbex 10/04 due to ventilator asynchrony. Resting comfortable Plan to discontinue fentanyl drip and use 25 mics grams every 30 minutes. For pain. As needed. In light of ileus Pulm: Continue with vent support and maintain sats > 92%. Bronchodilators, Pulmicort nebulizers q. 12, Spiriva one cap daily. taper Iv sternoids-continue Solu-Medrol 40mg Q8, ICU vent bundle. Pulm is following- Dr. Marquez CV: On Cardizem 60mg QID, Monitor HR and BP keep MAP>65mmHg. Off Lopressor and Prinivil/home medications : Monitor renal function, I/O's and electrolyte replacement as needed. GI: On Protonix 40 mg IV daily. Start PPN today goal 75 cc an hour Recheck Check KUB in a.m. Currently 7.7- on metoclopramide 10 mg IV every 8 hours. s/p colonoscopy 10/01 and 10/03 for colonic decompression -showed internal and external hemorrhoids. With rectal ulcers so rectal to discontinued Measure bladder pressures every 6 hours Currently on PPN at 75 cc an hour with lipids daily Continue aggressive bowel regimen with docusate sodium, Senokot, polyethylene glycol and lactulose with scheduled Relistor daily ID: On Levaquin, Zosyn, Monitor for signs of infections ( Fever, WBC) 09/27 BC: NGTD 09/26, Sputum cx: normal growth, Urine : NGTD Endo: SSI with accuchecks. Heme: Monitor CBC. GI prophylaxis with Protonix 40 mg daily and DVT prophylaxis with SCDs and Lovenox 40 mg subcu daily. CCT 30 Blake Bustillo MD Oct 04, 2016 10:34
--- NOTE | 2016-10-04 10:38 | RADRPT ---
EXAM DATE/TIME: 10/04/2016 09:36 [facility] COMPARISON: CHEST SINGLE AP, October 02, 2016, 4:17. INDICATIONS : Respiratory failure. MEDICAL HISTORY : Chronic obstructive pulmonary disease. SURGICAL HISTORY : None. ENCOUNTER: Subsequent ACUITY: 2 weeks PAIN SCORE: Non-responsive. LOCATION: Bilateral chest FINDINGS: Portable AP view of the chest demonstrates a normal-sized cardiac silhouette. ETT and nasogastric tub e remain present. Lungs are underinflated and there is mild opacity at the right lung base most likel y representing atelectasis. No effusion or pneumothorax is identified. Bones and soft tissues demonst rate no acute finding. CONCLUSION: Suspected atelectasis at the right lung base. Otherwise, no acute finding is identified. Oliver Garcia MD on October 04, 2016 at 10:36 Board Certified Radiologist. This report was verified electronically.
[2016-10-04] MEDS: MIDAZOLAM 100 MG/NS 100 ML DRIP Premix IV SCH ×2 (11:03→20:21)
--- NOTE | 2016-10-04 11:19 | HHI.GIFU ---
Subjective Remarks Sedated on vent. S/P decompressive colonoscopy on 10/03. Rectal tube discontinued. OGT in place. Large BM overnight. Abdomen more distended per RN. (Kaelyn Mccabe) Objective Vitals I&O Vital Signs Date Time Temp Pulse Resp B/P Pulse Ox O2 Delivery O2 Flow Rate FiO2 10/04/16 08:54 9 40 10/04/16 08:00 50 10/04/16 06:00 77 10/04/16 04:00 66 10/04/16 04:00 98.3 66 14 156/87 99 10/04/16 04:00 50 10/04/16 03:59 99 40 10/04/16 02:00 64 10/04/16 00:00 98.0 74 18 154/84 99 10/04/16 00:00 50 10/04/16 00:00 68 10/03/16 23:39 100 40 10/03/16 22:00 63 10/03/16 20:30 100 50 10/03/16 20:00 59 10/03/16 20:00 50 10/03/16 20:00 98.9 55 12 116/68 100 10/03/16 18:00 62 10/03/16 16:00 98.7 107 22 114/59 95 10/03/16 16:00 40 10/03/16 16:00 107 10/03/16 15:26 99 40 10/03/16 14:00 80 10/03/16 12:00 98.1 76 14 151/80 99 10/03/16 12:00 40 10/03/16 12:00 76 10/03/16 11:53 99 40 I/O 10/03/16 10/03/16 10/03/16 10/04/16 10/04/16 10/04/16 07:00 15:00 23:00 07:00 15:00 23:00 Intake Total 340 ml 845 ml 666 ml 1080 ml Output Total 750 ml 1000 ml 500 ml 450 ml Balance -410 ml -155 ml 166 ml 630 ml IV Total 280 ml 605 ml 502 ml 419 ml TPN/PPN 144 ml 579 ml Lipid 20 ml 82 ml Other 60 ml 240 ml Output Urine Total 450 ml 850 ml 500 ml 450 ml Stool Total 300 ml 150 ml Laboratory Laboratory Tests Test 10/04/16 08:23 Sodium Level 140 Potassium Level 4.0 Chloride Level 100 Carbon Dioxide Level 33.1 Anion Gap 7 Blood Urea Nitrogen 24 Creatinine 0.56 Estimat Glomerular Filtration 112 Rate Random Glucose 129 Lactic Acid Level 1.8 Calcium Level 8.3 Phosphorus Level 3.1 Magnesium Level 2.7 Total Bilirubin 0.3 Direct Bilirubin 0.1 Indirect Bilirubin 0.2 Aspartate Amino Transf 41 (AST/SGOT) Alanine Aminotransferase 74 (ALT/SGPT) Alkaline Phosphatase 45 Total Creatine Kinase 466 Creatine Kinase MB 9.8 Creatine Kinase MB % 2.1 Total Protein 5.6 Albumin 2.5 Thyroid Stimulating Hormone 0.247 3rd Gen Imaging Last Impressions Abdomen X-Ray 10/04/16 0600 Signed Impressions: Service Date/Time: Tuesday, October 04, 2016 03:54 - CONCLUSION: 1. Continued colonic ileus. There has been no significant change when compared to the prior exam. Qasim Zarate MD Chest X-Ray 10/04/16 0000 Signed Impressions: Service Date/Time: Tuesday, October 04, 2016 09:36 - CONCLUSION: Suspected atelectasis at the right lung base. Otherwise, no acute finding is identified. Oliver Garcia MD Abdomen/Pelvis CT 10/01/16 0000 Signed Impressions: Service Date/Time: September 14:17 - CONCLUSION: 1. Moderate to severe colonic ileus. NG tip in distal stomach. Lawson catheter in bladder. 2. Mild small bowel ileus. No free air or free fluid. 3. Mild anasarca. 4. Moderate infiltrate right lung base. Jay Jay Burgess MD Physical Exam HEENT: Normocephalic; atraumatic; no jaundice. CHEST: OETT to vent. CARDIAC: RRR ABDOMEN: Firm, distended. No bowel sounds noted. EXTREMITIES: Generalized edema. 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 (Kaelyn Mccabe) Assessment and Plan Plan ASSESSMENT - Severe colonic ileus/constipation. Abdomen/Pelvis CT (10/01/16)--1. Moderate to severe colonic ileus. NG tip in distal stomach. Lawson catheter in bladder. 2. Mild small bowel ileus. No free air or free fluid. 3. Mild anasarca. 4. Moderate infiltrate right lung base. S/P Decompressive colonoscopy (10/01/16)--1. Poor prep colonic decompression-marked improvement 2. Retroflexed views revealed internal hemorrhoids 3. Retroflexed views revealed small internal hemorrhoids 4. Revealed internal hemorrhoids. Abdomen X-Ray (10/02/16)--Ileus, colon is dilated to 9 cm. S/P Decompressive colonoscopy (10/03/16)-- 1. Poor prep ulcer rectum 2. Retroflexed views revealed internal hemorrhoid 3. Retroflexed views revealed small internal hemorrhoids 4. Revealed external hemorrhoids 5. Revealed internal hemorrhoid Abdomen X-Ray 10/04/16--1. Continued colonic ileus. There has been no significant change when compared to the prior exam. Noted colon now dilated to 11.7 cm on KUB. NPO. Remains distended, increased per RN. On bowel regimen, Reglan. Lactulose. Senna. Colace. Enema. - Acute hypercarbic resp failure, acute COPD exacerbation, bronchospasm, vent per CCM - Leukocytosis. abx - HTN per attending. PLAN - Consult General Surgery - NPO - OGT - Cont. Reglan - Cont. Lactulose - Cont. Senna - Cont. Colace - Supportive care - Further recommendations to follow based on results of above Patient seen and examined by Dr. Ratliff and myself and this note is written on her behalf. (Kaelyn Mccabe) Physician Comments ct abdomen/pelvis stat consult colorectal dr Yo-spoke with him og to suction if no perforation trial of Neostigmine (Corrina Ratliff MD) Kaelyn Mccabe Oct 04, 2016 11:19 Corrina Ratliff MD Oct 04, 2016 15:13
[2016-10-04] MEDS: ENOXAPARIN SODIUM 40 MG/0.4 ML SYRINGE SQ SCH (12:51)
[2016-10-04 14:11] LABS: BLOOD GAS BASE EXCESS 8.7 mmol/L (-2-2); BLOOD GAS CARBOXYHEMOGLOBIN 1.3 % (0-4); BLOOD GAS HCO3 34 mmol/L (22-26); BLOOD GAS METHEMOGLOBIN 1.2 % (0-2); BLOOD GAS O2 HGB SATURATION 92 % (90-100); BLOOD GAS OXYGEN CONTENT 17.5 Vol % (12.0-20.0); BLOOD GAS PCO2 56 mmHg (38-42); BLOOD GAS PO2 74 mmHg (61-120); BLOOD GAS TOTAL HGB 13.5 G/DL (12.0-16.0); TEMP CORR TO 98.6
[2016-10-04 14:12] LABS: CRITICAL VALUE YES; OXYGEN DEVICE VENTILATOR
[2016-10-04 14:14] LABS: DRAW SITE RT RADIAL; FIO2 40 %; NUMBER OF ARTERIAL PUNCTURES 1; STAT NO; ULNAR PULSE PRESENT
--- NOTE | 2016-10-04 14:19 | HHI.PR ---
Subjective Remarks Has abdominal distension. On vent support FIO2 40 % ,A/C 14. Sedated and on Paralytics. Still wheezing. Objective Vital Signs Date Time Temp Pulse Resp B/P Pulse Ox O2 Delivery O2 Flow Rate FiO2 10/04/16 14:00 77 10/04/16 12:07 95 40 10/04/16 12:00 84 10/04/16 12:00 98.7 84 14 175/95 95 10/04/16 12:00 40 10/04/16 10:00 94 10/04/16 08:54 9 40 10/04/16 08:00 50 10/04/16 08:00 69 10/04/16 08:00 98.6 69 17 161/90 96 10/04/16 06:00 77 10/04/16 04:00 66 10/04/16 04:00 98.3 66 14 156/87 99 10/04/16 04:00 50 10/04/16 03:59 99 40 10/04/16 02:00 64 10/04/16 00:00 98.0 74 18 154/84 99 10/04/16 00:00 50 10/04/16 00:00 68 10/03/16 23:39 100 40 10/03/16 22:00 63 10/03/16 20:30 100 50 10/03/16 20:00 59 10/03/16 20:00 50 10/03/16 20:00 98.9 55 12 116/68 100 10/03/16 18:00 62 10/03/16 16:00 98.7 107 22 114/59 95 10/03/16 16:00 40 10/03/16 16:00 107 10/03/16 15:26 99 40 I/O 10/03/16 10/03/16 10/03/16 10/04/16 10/04/16 10/04/16 06:59 14:59 22:59 06:59 14:59 22:59 Intake Total 340 ml 845 ml 666 ml 1080 ml Output Total 750 ml 1000 ml 500 ml 450 ml Balance -410 ml -155 ml 166 ml 630 ml IV Total 280 ml 605 ml 502 ml 419 ml TPN/PPN 144 ml 579 ml Lipid 20 ml 82 ml Other 60 ml 240 ml Output Urine Total 450 ml 850 ml 500 ml 450 ml Stool Total 300 ml 150 ml Result Diagram: 8/5/17 0600 10/04/16 0823 Objective Remarks GENERAL: Mid aged WF, on Vent, Intubated.Sedated. SKIN: Warm and dry. HEAD: Normocephalic. EYES: No scleral icterus. No injection or drainage. NECK: Supple, trachea midline. No JVD or lymphadenopathy. CARDIOVASCULAR: Regular rate and rhythm without murmurs, gallops, or rubs. RESPIRATORY: Breath sounds equal bilaterally. Bilateral Exp wheezing. GASTROINTESTINAL: Abdomen distended. and Firm. Poor BS. MUSCULOSKELETAL: Mild cyanosis, or edema. Neuro : sedated. Plan A/P Assessment and Plan VDRF COPD Exac HTN Nicotine use Assessment and Plan Assessment and Plan Plan A/P Assessment and Plan Respiratory failure COPD Exacerbation HTN Asthma. Abdominal Ileus. Plan : 1. Cont vent support and wean FIO2 . 2. CT abdomen and decompress. 3. Surgery consult. 4. Duonebs q6h. 5. CXR ,CBC,BMP in am 6. Solumedrol 60 mg IV Q6H. 7. Keep sedated and on Nimbex. Yvon Dee MD Oct 04, 2016 14:19
[2016-10-04 15:54] LABS: AUTOMATED NEUTROPHIL # 27.6 TH/MM3 (1.8-7.7); BASOPHIL # 0.1 TH/MM3 (0-0.2); BASOPHIL % 0.2 % (0.0-2.0); HEMATOCRIT 41.7 % (35.0-46.0); LYMPH % 2.4 % (9.0-44.0); LYMPHOCYTE # 0.7 TH/MM3 (1.0-4.8); MEAN CELL VOLUME 89.6 FL (80.0-100.0); MEAN CORPUSCULAR HEMOGLOBIN 30.6 PG (27.0-34.0); MEAN CORPUSCULAR HGB CONC 34.2 % (32.0-36.0); MONO % 6.7 % (0.0-8.0); NEUT % 90.7 % (16.0-70.0); PLATELET COUNT 276 TH/MM3 (150-450); RED BLOOD COUNT 4.65 MIL/MM3 (4.00-5.30); RED CELL DISTRIBUTION WIDTH 13.2 % (11.6-17.2); WHITE BLOOD COUNT 30.4 TH/MM3 (4.0-11.0)
[2016-10-04] MEDS ORDERED: NITROGLYCERIN-D5W 50 MG/250 ML 250 ML IV SCH (16:00)
[2016-10-04] MEDS ORDERED: ENALAPRILAT 1.25 MG/ML VIAL IV PUSH PRN (16:00)
[2016-10-04] MEDS ORDERED: LABETALOL HCL 100 MG/20 ML VIAL IV PUSH PRN (16:00)
[2016-10-04 16:02] LABS: HEMO FLAGS AUTO DIFF
[2016-10-04 16:25] LABS: INTERNATIONAL NORMALIZED RATIO 0.9 RATIO
[2016-10-04] MEDS ORDERED: IOHEXOL 350 MG/ML 10 ML VIAL (for RAD DIAG) IV ONE (16:27)
[2016-10-04 16:32] LABS: BANDS 2 % (0-6); MYELOCYTES 1 % (0-0); NEUTROPHIL # MANUAL DIFF 27.1 TH/MM3 (1.8-7.7); PLATELET ESTIMATE SMEAR NORMAL (NORMAL); PLATELET MORPHOLOGY NORMAL (NORMAL); POLYS (SEG NEUTROPHILS) 86 % (16-70); SCAN/DIFF FINAL DIFF MANUAL; WBC DIFF SAMPLE 100
--- NOTE | 2016-10-04 16:49 | RADRPT ---
EXAM DATE/TIME: 10/04/2016 16:28 [facility] COMPARISON: CT ABDOMEN & PELVIS W/O CONTRAST, October 01, 2016, 14:17. INDICATIONS : Ileus. IV CONTRAST: 100 cc Omnipaque 350 (iohexol) IV ORAL CONTRAST: No oral contrast ingested. RADIATION DOSE: 16.35 CTDIvol (mGy) MEDICAL HISTORY : Chronic obstructive pulmonary disease. Hypertension. Cardiovascular diseaseAsthma SURGICAL HISTORY : None. ENCOUNTER: Initial ACUITY: 3 days PAIN SCALE: 6/10 LOCATION: Bilateral abdomen TECHNIQUE: Volumetric scanning of the abdomen and pelvis was performed. Using automated exposure control and ad justment of the mA and/or kV according to patient size, radiation dose was kept as low as reasonably achievable to obtain optimal diagnostic quality images. DICOM format image data is available electro nically for review and comparison. FINDINGS: There is mild right basilar airspace disease and some dependent atelectasis. No significant abnormali ty in the liver, spleen, adrenals, kidneys or pancreas. Nasogastric tube tip is in the region of the duodenal bulb. There is distention of the colon to a diameter of up to about 9.4 cm which is slightly increased from October 01. There is air in the rectosigmoid as well. Mild small bowel dilatation is present without d efinite transition zone to suggest obstruction. There is mild anasarca. Lawson catheter is present in the bladder. CONCLUSION: 1. Severe colonic ileus which has increased slightly since October 01 with colon now measuring up to ab out 9.4 cm in diameter. Air is seen progressing distally into the rectosigmoid. 2. Mild anasarca. 3. Lawson catheter tip in bladder. 4. Mild right basilar airspace disease with dependent atelectasis. Jay Jay Burgess MD on October 04, 2016 at 16:37 Board Certified Radiologist. This report was verified electronically.
[2016-10-04] MEDS: metroNIDAZOLE 500 MG INJ 100 ML IV SCH (17:07)
[2016-10-04] MEDS: BISACODYL 10 MG SUPP RECTAL SCH (18:10)
[2016-10-04] MEDS: FAT EMULSION 20% INJ 250 ML (@10 mls/hr) IV SCH (20:18)
[2016-10-04] MEDS: CLINIMIX E 4.25/5 2000 mL- >42 mls/hr IV SCH ×3 (20:18)
[2016-10-04] MEDS ORDERED: NEOSTIGMINE METHYLSULFATE 10 MG/10 ML VIAL IV PUSH ONE (20:30)
--- NOTE | 2016-10-04 21:41 | MB ---
cc: JESSICA GARRIDO M.D. DATE OF CONSULTATION 10/04/2016 REASON FOR CONSULTATION Abdominal distention, colonic ileus. HISTORY OF THE PRESENT ILLNESS Ms. Oseguera is an unfortunate 56-year-old female with severe COPD admitted several days ago with worsening of her COPD and respiratory failure. She was initially managed with medical management and eventually failing requiring intubation. While intubated and under sedation she has been noted to have increasing amounts of abdominal distension over the last several days. GI has been following the patient and has performed two decompressive colonoscopies which have apparently given her significant relief. However, today the patient was noted again to be very distended and with gross abdominal distension. Flat and upright abdomen x-ray show marked distension of the colon up to about 10 cm. The patient has been on the ventilator and is paralyzed and sedated so additional past medical and surgical history have been obtained from review of the chart. Nursing staff and GI consultants do not feel she was having significant abdominal pain before she was placed on the respirator. PAST MEDICAL AND SURGICAL HISTORY Reviewed. PHYSICAL EXAMINATION GENERAL: Pertinent physical, heavy-set female on the ventilator paralyzed with no responsiveness. ABDOMEN: Grossly distended. Quite a bit of tympany. No crepitus. No obvious hernias. No signs of cellulitis. RECTAL: Digital exam revealed some hemorrhoid tissue. Tight sphincter with a empty rectal vault. Large efflux of gas and stool produced with dilatation of the anal canal. Additional gas and stool produced with abdominal pressure noting significant decrease in the abdominal distension. LABORATORY FINDINGS All labs reviewed. IMAGING CT scan was reviewed and examined. IMPRESSION A 56-year-old female with respiratory failure on ventilator support who has developed a significant colonic ileus and distension. Two colonoscopies have shown the colon is patent and no signs of obstruction. No pseudomembranes or signs of acute colitis. The patient has had significant improvement on today's exam with just anal dilatation and abdominal pressure. Would hold off on additional rectal tubes, except maybe once a shift to evacuate as much air and gas as can be obtained at the bedside with a left lateral positioning and abdominal pressure. We will follow her conservatively while she hopefully recovers from the respiratory failure and gets her colonic motility back. If she continues to have significant colonic distension, a loop colostomy can be done at some point to relieve the colonic distension. We will follow her closely unless the distension becomes more significant and unable to be relieved with rectal exam. MD HIRA Wylie/RICK /7:41 PM /9:25 PM `
[2016-10-04] MEDS: hydrALAZINE HCL 20 MG/ML VIAL IV PUSH PRN (22:45)
[2016-10-05] VITALS (19 sets, daily range): BP systolic 137–195; BP diastolic 73–96; PULSE 84–112; RESP 14–19; TEMP 96.8–98.8; O2SAT 89–97
[2016-10-05] MEDS: PROPOFOL 1000 MG/100 ML INJ 100 ML IV SCH ×5 (00:12→23:40)
[2016-10-05] MEDS: CISATRACURIUM INJ 100 MG in SODIUM CHLOR 0.9% 250 ML INJ 240 ML IV SCH (00:12)
[2016-10-05] MEDS: metroNIDAZOLE 500 MG INJ 100 ML IV SCH ×3 (00:12→17:00)
[2016-10-05] MEDS: MIDAZOLAM 100 MG/NS 100 ML DRIP Premix IV SCH ×2 (00:14→14:22)
[2016-10-05] MEDS: RESP: ALBUTEROL 2.5 MG/IPRATROPIUM 0.5 MG NEB (SCH) NEB ×7 (01:09→23:27)
[2016-10-05] MEDS: DILTIAZEM HCL 60 MG TAB PO SCH ×3 (02:19→20:08)
[2016-10-05] MEDS: PIPERACIL-TAZO 4.5 GM PREMIX 100 ML IV SCH (02:19)
[2016-10-05] MEDS: methylPREDNISolone SOD SUCC 125 MG/2 ML VIAL IV SCH ×3 (03:22→20:08)
[2016-10-05] MEDS: METOCLOPRAMIDE HCL 10 MG/2 ML VIAL IV PUSH SCH ×3 (04:43→20:08)
--- NOTE | 2016-10-05 04:55 | RADRPT ---
EXAM DATE/TIME: 10/05/2016 03:22 [facility] COMPARISON: ABDOMEN KUB ONLY, October 04, 2016, 3:54. INDICATIONS : Ileus. MEDICAL HISTORY : None. SURGICAL HISTORY : None. ENCOUNTER: Subsequent ACUITY: 1 week PAIN SCORE: 0/10 LOCATION: Bilateral Abdomen FINDINGS: Enteric tube is present and the tip overlies expect location of the distal stomach/proximal duodenum. There remains marked dilatation of the large bowel, not significantly changed. CONCLUSION: Persistent abnormal dilatation of bowel. Todd Ortega MD on October 05, 2016 at 4:53 Board Certified Radiologist. This report was verified electronically.
[2016-10-05 05:01] LABS: HEMATOCRIT 43.9 % (35.0-46.0); MEAN CELL VOLUME 90.9 FL (80.0-100.0); MEAN CORPUSCULAR HEMOGLOBIN 29.5 PG (27.0-34.0); MEAN CORPUSCULAR HGB CONC 32.4 % (32.0-36.0); PLATELET COUNT 280 TH/MM3 (150-450); RED BLOOD COUNT 4.83 MIL/MM3 (4.00-5.30); RED CELL DISTRIBUTION WIDTH 13.5 % (11.6-17.2); WHITE BLOOD COUNT 32.6 TH/MM3 (4.0-11.0)
[2016-10-05 05:11] LABS: HEMO FLAGS AUTO DIFF
[2016-10-05 05:26] LABS: ALT (GPT) 75 U/L (10-53); ANION GAP 6 MEQ/L (5-15); AST (GOT) 33 U/L (15-37); BICARBONATE 32.6 MEQ/L (21.0-32.0); CHLORIDE 101 MEQ/L (98-107); GLOMERULAR FILTRATION RATE 137 ML/MIN (>89); MAGNESIUM 2.6 MG/DL (1.5-2.5); POTASSIUM 4.1 MEQ/L (3.5-5.1); SODIUM (NA) 140 MEQ/L (136-145)
[2016-10-05] MEDS: INSULIN NovoLIN REGULAR SUPPLEMENTAL SCALE SQ SCH ×3 (05:27→18:00)
[2016-10-05 05:35] LABS: ALKALINE PHOSPHATASE 49 U/L (45-117); CREATINE KINASE 285 U/L (26-192); FREE T3 0.88 PG/ML (2.18-3.98); FREE T4 0.74 NG/DL (0.76-1.46); TOTAL BILIRUBIN ADULT 0.3 MG/DL (0.2-1.0)
[2016-10-05 05:56] LABS: BLOOD UREA NITROGEN 22 MG/DL (7-18); CKMB 13.3 NG/ML (0.5-3.6)
[2016-10-05 06:11] LABS: BANDS 5 % (0-6); METAMYELOCYTES 2 % (0-1); MYELOCYTES 3 % (0-0); POLYS (SEG NEUTROPHILS) 85 % (16-70); WBC DIFF SAMPLE 100
[2016-10-05 06:12] LABS: PLATELET ESTIMATE SMEAR NORMAL (NORMAL); PLATELET MORPHOLOGY NORMAL (NORMAL); SCAN/DIFF FINAL DIFF MANUAL
[2016-10-05] MEDS: RESP: BUDESONIDE 0.5 MG/2 ML NEB NEB SCH ×2 (07:56→21:26)
[2016-10-05] MEDS: CHLORHEXIDINE 0.12% (ORAL KIT) 15 ML CUP MT SCH ×4 (08:00→20:00)
--- NOTE | 2016-10-05 08:15 | HHI.GIFU ---
Subjective Remarks Resting in bed. Sedated on vent. Rectal tube out. Large liquid bowel movement (after today's xray). Objective Vitals I&O Vital Signs Date Time Temp Pulse Resp B/P Pulse Ox O2 Delivery O2 Flow Rate FiO2 10/05/16 06:00 87 10/05/16 04:04 94 40 10/05/16 04:00 98.3 100 14 153/96 92 10/05/16 04:00 100 10/05/16 04:00 40 10/05/16 02:00 87 10/05/16 01:09 97 40 10/05/16 00:00 98.6 87 14 163/88 97 10/05/16 00:00 40 10/05/16 00:00 87 10/04/16 22:00 91 10/04/16 20:32 95 40 10/04/16 20:00 97.0 91 14 194/106 94 10/04/16 20:00 40 10/04/16 20:00 91 10/04/16 18:00 84 10/04/16 17:20 100 100 10/04/16 16:00 40 10/04/16 16:00 92 10/04/16 16:00 98.4 92 14 156/77 94 10/04/16 15:01 92 40 10/04/16 14:00 77 10/04/16 12:07 95 40 10/04/16 12:00 84 10/04/16 12:00 98.7 84 14 175/95 95 10/04/16 12:00 40 10/04/16 10:00 94 10/04/16 08:54 9 40 I/O 10/04/16 10/04/16 10/04/16 10/05/16 10/05/16 10/05/16 07:00 15:00 23:00 07:00 15:00 23:00 Intake Total 1080 ml 2016 ml 1309 ml 1044 ml Output Total 450 ml 750 ml 550 ml 650 ml Balance 630 ml 1266 ml 759 ml 394 ml IV Total 419 ml 782 ml 601 ml 419 ml TPN/PPN 579 ml 774 ml 633 ml 536 ml Lipid 82 ml 100 ml 75 ml 89 ml Other 360 ml Output Urine Total 450 ml 750 ml 500 ml 500 ml Stool Total 50 ml 150 ml Laboratory Laboratory Tests Test 8/08/1510/04/16 10/04/16 10/05/16 08:23 13:55 15:35 04:49 Sodium Level 140 140 Potassium Level 4.0 4.1 Chloride Level 100 101 Carbon Dioxide Level 33.1 32.6 Anion Gap 7 6 Blood Urea Nitrogen 24 22 Creatinine 0.56 0.47 Estimat Glomerular Filtration 112 137 Rate Random Glucose 129 154 Lactic Acid Level 1.8 1.4 Calcium Level 8.3 8.5 Phosphorus Level 3.1 2.9 Magnesium Level 2.7 2.6 Total Bilirubin 0.3 0.3 Direct Bilirubin 0.1 Indirect Bilirubin 0.2 Aspartate Amino Transf 41 33 (AST/SGOT) Alanine Aminotransferase 74 75 (ALT/SGPT) Alkaline Phosphatase 45 49 Total Creatine Kinase 466 285 Creatine Kinase MB 9.8 13.3 Creatine Kinase MB % 2.1 4.7 Total Protein 5.6 6.3 Albumin 2.5 2.6 Thyroid Stimulating Hormone 0.247 3rd Gen Blood Gas Puncture Site RT RADIAL Blood Gas Patient Temperature 98.6 Blood Gas HCO3 34 Blood Gas Base Excess 8.7 Blood Gas Oxygen Saturation 92 Arterial Blood pH 7.40 Arterial Blood Partial 56 Pressure CO2 Arterial Blood Partial 74 Pressure O2 Arterial Blood Oxygen Content 17.5 Arterial Blood 1.3 Carboxyhemoglobin Arterial Blood Methemoglobin 1.2 Blood Gas Hemoglobin 13.5 Oxygen Delivery Device VENTILATOR Blood Gas Ventilator Setting Blood Gas Inspired Oxygen 40 White Blood Count 30.4 32.6 Red Blood Count 4.65 4.83 Hemoglobin 14.2 14.2 Hematocrit 41.7 43.9 Mean Corpuscular Volume 89.6 90.9 Mean Corpuscular Hemoglobin 30.6 29.5 Mean Corpuscular Hemoglobin 34.2 32.4 Concent Red Cell Distribution Width 13.2 13.5 Platelet Count 276 280 Mean Platelet Volume 8.4 8.1 Neutrophils (%) (Auto) 90.7 Lymphocytes (%) (Auto) 2.4 Monocytes (%) (Auto) 6.7 Eosinophils (%) (Auto) 0.0 Basophils (%) (Auto) 0.2 Neutrophils # (Auto) 27.6 Lymphocytes # (Auto) 0.7 Monocytes # (Auto) 2.0 Eosinophils # (Auto) 0.0 Basophils # (Auto) 0.1 CBC Comment AUTO DIFF AUTO DIFF Differential Total Cells 100 100 Counted Neutrophils % (Manual) 86 85 Band Neutrophils % 2 5 Lymphocytes % 2 3 Monocytes % 9 2 Neutrophils # (Manual) 27.1 31.0 Myelocytes 1 3 Differential Comment FINAL DIFF FINAL DIFF MANUAL MANUAL Platelet Estimate NORMAL NORMAL Platelet Morphology Comment NORMAL NORMAL Red Cell Morphology Comment NORMAL Prothrombin Time 10.0 Prothromb Time International 0.9 Ratio Metamyelocytes 2 Free Thyroxine 0.74 Free Triiodothyronine (T3) 0.88 pg/dL Imaging Last Impressions Abdomen X-Ray 10/05/16 0600 Signed Impressions: Service Date/Time: Wednesday, October 05, 2016 03:22 - CONCLUSION: Persistent abnormal dilatation of bowel. Todd Ortega MD Chest X-Ray 10/04/16 0000 Signed Impressions: Service Date/Time: Tuesday, October 04, 2016 09:36 - CONCLUSION: Suspected atelectasis at the right lung base. Otherwise, no acute finding is identified. Oliver Garcia MD Abdomen/Pelvis CT 10/04/16 0000 Signed Impressions: Service Date/Time: Tuesday, October 04, 2016 16:28 - CONCLUSION: 1. Severe colonic ileus which has increased slightly since October 01 with colon now measuring up to about 9.4 cm in diameter. Air is seen progressing distally into the rectosigmoid. 2. Mild anasarca. 3. Lawson catheter tip in bladder. 4. Mild right basilar airspace disease with dependent atelectasis. Jay Jay Burgess MD Physical Exam HEENT: Normocephalic; atraumatic; no jaundice. CHEST: OETT to vent. CARDIAC: RRR ABDOMEN: Firm, tympanic, distended. Hypoactive bowel sounds. (+) Large liquid stool in bed. NGT to LIWS EXTREMITIES: Generalized edema, more in upper extremities, trace edema ble. 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 Assessment and Plan Plan ASSESSMENT - Severe colonic ileus/constipation. S/P Decompressive colonoscopy (10/01/16)-- 1. Poor prep colonic decompression-marked improvement 2. Retroflexed views revealed internal hemorrhoids 3. Retroflexed views revealed small internal hemorrhoids 4. Revealed internal hemorrhoids. S/P Decompressive colonoscopy (10/03/16)--> 1. Poor prep ulcer rectum 2. Retroflexed views revealed internal hemorrhoid 3. Retroflexed views revealed small internal hemorrhoids 4. Revealed external hemorrhoids 5. Revealed internal hemorrhoid. Abdomen/ Pelvis CT (10/04/16)-----> 1. Severe colonic ileus which has increased slightly since October 01 with colon now measuring up to about 9.4 cm in diameter. Air is seen progressing distally into the rectosigmoid. 2. Mild anasarca. 3. Lawson catheter tip in bladder. 4. Mild right basilar airspace disease with dependent atelectasis. Abdomen X-Ray (10/05/16)----> Persistent abnormal dilatation of bowel. S/P Enemas, S/P Neostigmine (10/04). On bowel regimen- Reglan, lactulose, senna, colace, relistor. Pt remains distended, with tympanic abdomen. However, she did have a large liquid stool while I was in the room (after today's xray). CRS following. - Acute hypercarbic resp failure, acute COPD exacerbation, bronchospasm, vent per CCM - Leukocytosis. BCx no growth 5 days, Urine cx no growth 48 hours- Zosyn, Flagyl, Levaquin. - HTN per attending. PLAN - NPO - OGT to LIWS - TPN - Cont. Reglan - Cont. Lactulose - Cont. Senna - Cont. Colace - On Relistor - S/P Decompressive colonoscopy (10/01), (10/04) - S/P Neostigmine (10/04) - KUB in am - CRS following - Supportive care - Further recommendations to follow based on results of above - Patient seen and examined by Dr. Buckley and myself and this note is written on his behalf. Jennifer Coleman Oct 05, 2016 08:15
[2016-10-05] MEDS: BISACODYL 10 MG SUPP RECTAL SCH (09:00)
[2016-10-05] MEDS: DOCUSATE SODIUM 100 MG/10 ML UDC PO SCH ×2 (09:00→20:08)
[2016-10-05] MEDS: TIOTROPIUM BROMIDE 18 MCG INH INH SCH (09:00)
--- NOTE | 2016-10-05 10:27 | HHI.CCPN ---
Subjective Remarks/Hospital Course The patient is a 56-year-old female with past medical history of COPD and hypertension who presented to the [facility] ED with a 2-week history of progressive shortness of breath. In addition, she reports a dry cough and wheezing. The patient denies any constitutional symptoms. In addition she denies any nausea, vomiting, or abdominal pain. No history of orthopnea, PND or edema of lower extremities. She denies any use of oxygen at home; however, she uses nebulizers and is on Symbicort. In the ED the patient was given IV steroids and bronchodilator treatments. She was in the ER last night with the same presentation and after several hours of treatments she was discharged with a prescription for a tapered dose of prednisone. In addition, she was given a new albuterol inhaler. She came back a few hours later in respiratory distress. A chest x-ray from last night showed no acute disease. No laboratory data or blood gases available today; however, ABG from last night on a BiPAP 02/03 with 35% FIO2 showed a pH of 7.37, CO2 40, pAO2 of 105, bicarb 23 and saturation of 96%. 09/26 Patient was intubated yesterday for resp distress sedated with Versed 5mg and low doses Fentanyl and Diprivan. Afebrile. Given 1L NS last night for hypotension 09/27 Patient is sedated with Fentanyl and intubated. Afebrile. Patient was initially placed on PC/AC last night however his ABG showed acute resp acidosis with PH: 7.26,COP2 52 he was placed back on PRVC/AC mode. 09/28 Patient remains sedated with Fentanyl and versed placed on Nimbex overnight. Afebrile. WBC is trending down. 09/29 No events overnight. Sedated and intubated. Hypertensive. 09/30 Patient remains intubated and sedated. Off Nimbex. Afebrile. 10/01: Patient has significant bilateral wheezing. Abdominal distention increasing. No bowel movement since admission. KUB pending. Reduced RR to 14 to avoid air trapping 10/02 No events overnight, sedated with Fentanyl and Versed. Afebrile. s/p colonoscopy yesterday for colonic decompression, rectal tube to suction 10/03: . Plan for decompressive colonoscopy today due to 10.5 cm cecum. Patient is arousable and follows commands. FiO2 35%. Saturations 99%. No bowel movement. Subjective 10/04: Status post expressive colonoscopy yesterday. X-ray revealed 11.7 cm dilated: Today. Bladder pressures around 9-11. This a.m., asynchronous with the ventilator so paralyzed with rocuronium currently on a Nimbex drip. 10/05 Patient remains sedated and intubated in addition he is on Nimbex. Afebrile. Objective Vital Signs Date Time Temp Pulse Resp B/P Pulse Ox O2 Delivery O2 Flow Rate FiO2 10/05/16 07:58 91 40 10/05/16 06:00 87 10/05/16 04:00 98.3 14 153/96 Intake and Output 10/04/16 10/04/16 10/04/16 07:59 15:59 23:59 Intake Total 1080 ml 2016 ml 1309 ml Output Total 450 ml 750 ml 550 ml Balance 630 ml 1266 ml 759 ml Result Diagram: 10/05/16 0449 10/05/16 0449 Other Results Laboratory Tests Test 10/04/16 10/04/16 10/05/16 13:55 15:35 04:49 Blood Gas Puncture Site RT RADIAL Blood Gas Patient Temperature 98.6 Blood Gas HCO3 34 mmol/L Blood Gas Base Excess 8.7 mmol/L Blood Gas Oxygen Saturation 92 % Arterial Blood pH 7.40 Arterial Blood Partial 56 mmHg Pressure CO2 Arterial Blood Partial 74 mmHg Pressure O2 Arterial Blood Oxygen Content 17.5 Vol % Arterial Blood 1.3 % Carboxyhemoglobin Arterial Blood Methemoglobin 1.2 % Blood Gas Hemoglobin 13.5 G/DL Oxygen Delivery Device VENTILATOR Blood Gas Ventilator Setting Blood Gas Inspired Oxygen 40 % White Blood Count 30.4 TH/MM3 32.6 TH/MM3 Red Blood Count 4.65 MIL/MM3 4.83 MIL/MM3 Hemoglobin 14.2 GM/DL 14.2 GM/DL Hematocrit 41.7 % 43.9 % Mean Corpuscular Volume 89.6 FL 90.9 FL Mean Corpuscular Hemoglobin 30.6 PG 29.5 PG Mean Corpuscular Hemoglobin 34.2 % 32.4 % Concent Red Cell Distribution Width 13.2 % 13.5 % Platelet Count 276 TH/MM3 280 TH/MM3 Mean Platelet Volume 8.4 FL 8.1 FL Neutrophils (%) (Auto) 90.7 % % Lymphocytes (%) (Auto) 2.4 % % Monocytes (%) (Auto) 6.7 % % Eosinophils (%) (Auto) 0.0 % % Basophils (%) (Auto) 0.2 % % Neutrophils # (Auto) 27.6 TH/MM3 TH/MM3 Lymphocytes # (Auto) 0.7 TH/MM3 TH/MM3 Monocytes # (Auto) 2.0 TH/MM3 TH/MM3 Eosinophils # (Auto) 0.0 TH/MM3 TH/MM3 Basophils # (Auto) 0.1 TH/MM3 TH/MM3 CBC Comment AUTO DIFF AUTO DIFF Differential Total Cells 100 100 Counted Neutrophils % (Manual) 86 % 85 % Band Neutrophils % 2 % 5 % Lymphocytes % 2 % 3 % Monocytes % 9 % 2 % Neutrophils # (Manual) 27.1 TH/MM3 31.0 TH/MM3 Myelocytes 1 % 3 % Differential Comment FINAL DIFF FINAL DIFF MANUAL MANUAL Platelet Estimate NORMAL NORMAL Platelet Morphology Comment NORMAL NORMAL Red Cell Morphology Comment NORMAL Prothrombin Time 10.0 SEC Prothromb Time International 0.9 RATIO Ratio Metamyelocytes 2 % Sodium Level 140 MEQ/L Potassium Level 4.1 MEQ/L Chloride Level 101 MEQ/L Carbon Dioxide Level 32.6 MEQ/L Anion Gap 6 MEQ/L Blood Urea Nitrogen 22 MG/DL Creatinine 0.47 MG/DL Estimat Glomerular Filtration 137 ML/MIN Rate Random Glucose 154 MG/DL Lactic Acid Level 1.4 mmol/L Calcium Level 8.5 MG/DL Phosphorus Level 2.9 MG/DL Magnesium Level 2.6 MG/DL Total Bilirubin 0.3 MG/DL Aspartate Amino Transf 33 U/L (AST/SGOT) Alanine Aminotransferase 75 U/L (ALT/SGPT) Alkaline Phosphatase 49 U/L Total Creatine Kinase 285 U/L Creatine Kinase MB 13.3 NG/ML Creatine Kinase MB % 4.7 % Total Protein 6.3 GM/DL Albumin 2.6 GM/DL Free Thyroxine 0.74 NG/DL Free Triiodothyronine (T3) 0.88 PG/ML pg/dL Imaging Last Impressions Abdomen X-Ray 10/05/16 0600 Signed Impressions: Service Date/Time: Wednesday, October 05, 2016 03:22 - CONCLUSION: Persistent abnormal dilatation of bowel. Todd Ortega MD Chest X-Ray 10/04/16 0000 Signed Impressions: Service Date/Time: Tuesday, October 04, 2016 09:36 - CONCLUSION: Suspected atelectasis at the right lung base. Otherwise, no acute finding is identified. Oliver Garcia MD Abdomen/Pelvis CT 10/04/16 0000 Signed Impressions: Service Date/Time: Tuesday, October 04, 2016 16:28 - CONCLUSION: 1. Severe colonic ileus which has increased slightly since October 01 with colon now measuring up to about 9.4 cm in diameter. Air is seen progressing distally into the rectosigmoid. 2. Mild anasarca. 3. Lawson catheter tip in bladder. 4. Mild right basilar airspace disease with dependent atelectasis. Jay Jay Burgess MD Objective Remarks GENERAL: 56 yo female, critically ill currently intubated and paralyzed SKIN: Warm and dry. No rash HEAD: Normocephalic. EYES: No scleral icterus. No injection or drainage. NECK: Supple, trachea midline. No JVD or lymphadenopathy. CARDIOVASCULAR: Regular rate and rhythm without murmurs, gallops, or rubs. RESPIRATORY: Breath sounds equal bilaterally. Coarse BS, diffuse wheezing GASTROINTESTINAL: Abdomen distended. Tense. No bowel sounds appreciated after 2 minutes in all 4 quadrants MUSCULOSKELETAL: No significant peripheral edema. Neuro: Paralyzed on the ventilator. A/P Assessment and Plan Acute hypercarbic respiratory failure Acute COPD exacerbation. Hypertension. Bronchospasm Leukocytosis History of tobacco abuse. Colonic ileus Internal hemorrhoids Plan Neuro: On Diprivan and Versed infusions for sedation and vent synchrony. Resumed Nimbex 10/04 due to ventilator asynchrony. Resting comfortable Pulm: Continue with vent support and maintain sats > 92%. Bronchodilators, Pulmicort nebulizers q. 12, Spiriva one cap daily. taper Iv sternoids-continue Solu-Medrol 40mg Q8, ICU vent bundle. Pulm is following- Dr. Marquez CV: On Cardizem 60mg QID, Monitor HR and BP keep MAP>65mmHg. : Monitor renal function, I/O's and electrolyte replacement as needed. GI: On Protonix 40 mg IV daily. KUB today- persistent abnormal dilation of bowel- on metoclopramide 10 mg IV every 8 hours. s/p colonoscopy 10/01 and 10/03 for colonic decompression -showed internal and external hemorrhoids. Currently on PPN at 75 cc an hour with lipids daily Continue aggressive bowel regimen with docusate sodium, Senokot, polyethylene glycol and lactulose ,Relistor daily GI and CRS following ID: On Levaquin, Zosyn, Monitor for signs of infections ( Fever, WBC) ID eval, check C-diff PCR 09/27 BC: NGTD 09/26, Sputum cx: normal growth, Urine : NGTD Endo: SSI with accuchecks. Heme: Monitor CBC. GI prophylaxis with Protonix 40 mg daily and DVT prophylaxis with SCDs and Lovenox 40 mg subcu daily. CCT 30 Carmita Oconnell MD Oct 05, 2016 10:26
[2016-10-05] MEDS ORDERED: DO NOT ADM ANY ANTICOAGULANT DRUGS PRN (10:30)
[2016-10-05] MEDS: ENOXAPARIN SODIUM 40 MG/0.4 ML SYRINGE SQ SCH (13:00)
--- NOTE | 2016-10-05 13:37 | PD.CONS ---
History of Present Illness Service Infectious disease Consult Requested By Dr Oconnell Reason for Consult Evaluate patient with leukocytosis Primary Care Physician No Primary Care Physician Diagnoses: History of Present Illness She is seen and examined. Records reviewed. Patient is a 56-year-old female, with known COPD, presented to the hospital complaining of severe and worsening shortness of breath, cough. There was no fever or chills nausea or vomiting, abdominal pain, or any other GI complaints. Her initial chest x-ray was normal. She was admitted for COPD exacerbation, and on her first hospital day her shortness of breath got progressively worse so she ended up getting intubated. Patient has been on the vent since. Her cultures have been negative. She was laced on steroids. She started having problem with significant ileus, and patient has had 2 decompressive colonoscopies done. No abnormalities seen during her colonoscopy , no obstruction, no mass, no pseudomembrane. Since September for her white count started increasing. Patient has been on Zosyn, and Flagyl. Her WBC continues to increase. There is no record of any diarrhea. She has not been febrile. Infectious disease consultation has been requested to evaluate the patient. Review of Systems ROS Limitations: Clinical Condition, Intubated Past Family Social History Allergies: Coded Allergies: No Known Allergies (Unverified , 09/24/16) Past Medical History COPD Hypertension Past Surgical History Tubal ligation Active Ordered Medications Albuterol Dulcolax Pulmicort Precedex Colace Cardizem Vasotec Lovenox Fentanyl Haldol Insulin Hydralazine Labetalol Levaquin Ativan Magnesium Relistor Solumedrol Reglan Flagyl Versed MVI/folic acid Protonix Zosyn Potassium Diprivan Spiriva Family History Noncontributory Social History Ex-smoker No alcohol abuse No illicit drugs Physical Exam Vital Signs Vital Signs Date Time Temp Pulse Resp B/P Pulse Ox O2 Delivery O2 Flow Rate FiO2 10/05/16 12:25 94 40 10/05/16 12:00 40 10/05/16 08:00 40 10/05/16 07:58 91 40 10/05/16 06:00 87 10/05/16 04:04 94 40 10/05/16 04:00 98.3 100 14 153/96 92 10/05/16 04:00 100 10/05/16 04:00 40 10/05/16 02:00 87 10/05/16 01:09 97 40 10/05/16 00:00 98.6 87 14 163/88 97 10/05/16 00:00 40 10/05/16 00:00 87 10/04/16 22:00 91 10/04/16 20:32 95 40 10/04/16 20:00 97.0 91 14 194/106 94 10/04/16 20:00 40 10/04/16 20:00 91 10/04/16 18:00 84 10/04/16 17:20 100 100 10/04/16 16:00 40 10/04/16 16:00 92 10/04/16 16:00 98.4 92 14 156/77 94 10/04/16 15:01 92 40 10/04/16 14:00 77 Physical Exam GENERAL: Patient is a well-nourished, well-developed CF, sedated, on the vent , not in respiratory distress. SKIN: Warm and dry. No generalized rash, no ecchymoses and no evidence of embolic lesions. HEAD: Atraumatic. Normocephalic. No temporal wasting, or tenderness. EYES: [place] conjunctiva. No petechia or hemorrhage. Pupils equal, round and reactive to light. No scleral icterus. No injection or drainage. EARS, NOSE AND THROAT: Nose without bleeding or purulent nasal discharge. No sinus tenderness. Mucous membranes pink and moist. She is orally intubated. Has NG tube in place, LIWS, has bilious fluid NECK: Trachea midline. Supple and not tender, no meningeal signs CARDIOVASCULAR: Regular rate and rhythm. No murmurs, rubs or gallops heard RESPIRATORY: She has rhonchi on the right side, decreased on the left side. ABDOMEN: Globular and distended, bowel sounds are hypoactive, no reaction to deep palpation. EXTREMITIES: No clubbing, cyanosis. Has edema of feet. Warm. NEUROLOGICAL: Sedated PSYCHIATRIC: Unable to assess LINE: No evidence of infection : Lawson in place, urine looks clear Laboratory Laboratory Tests Test 10/04/16 10/04/16 10/05/16 10/05/16 13:55 15:35 04:49 12:30 Blood Gas Puncture Site RT RADIAL Blood Gas Patient Temperature 98.6 Blood Gas HCO3 34 Blood Gas Base Excess 8.7 Blood Gas Oxygen Saturation 92 Arterial Blood pH 7.40 Arterial Blood Partial 56 Pressure CO2 Arterial Blood Partial 74 Pressure O2 Arterial Blood Oxygen Content 17.5 Arterial Blood 1.3 Carboxyhemoglobin Arterial Blood Methemoglobin 1.2 Blood Gas Hemoglobin 13.5 Oxygen Delivery Device VENTILATOR Blood Gas Ventilator Setting Blood Gas Inspired Oxygen 40 White Blood Count 30.4 32.6 Red Blood Count 4.65 4.83 Hemoglobin 14.2 14.2 Hematocrit 41.7 43.9 Mean Corpuscular Volume 89.6 90.9 Mean Corpuscular Hemoglobin 30.6 29.5 Mean Corpuscular Hemoglobin 34.2 32.4 Concent Red Cell Distribution Width 13.2 13.5 Platelet Count 276 280 Mean Platelet Volume 8.4 8.1 Neutrophils (%) (Auto) 90.7 Lymphocytes (%) (Auto) 2.4 Monocytes (%) (Auto) 6.7 Eosinophils (%) (Auto) 0.0 Basophils (%) (Auto) 0.2 Neutrophils # (Auto) 27.6 Lymphocytes # (Auto) 0.7 Monocytes # (Auto) 2.0 Eosinophils # (Auto) 0.0 Basophils # (Auto) 0.1 CBC Comment AUTO DIFF AUTO DIFF Differential Total Cells 100 100 Counted Neutrophils % (Manual) 86 85 Band Neutrophils % 2 5 Lymphocytes % 2 3 Monocytes % 9 2 Neutrophils # (Manual) 27.1 31.0 Myelocytes 1 3 Differential Comment FINAL DIFF FINAL DIFF MANUAL MANUAL Platelet Estimate NORMAL NORMAL Platelet Morphology Comment NORMAL NORMAL Red Cell Morphology Comment NORMAL Prothrombin Time 10.0 Prothromb Time International 0.9 Ratio Metamyelocytes 2 Sodium Level 140 Potassium Level 4.1 Chloride Level 101 Carbon Dioxide Level 32.6 Anion Gap 6 Blood Urea Nitrogen 22 Creatinine 0.47 Estimat Glomerular Filtration 137 Rate Random Glucose 154 Lactic Acid Level 1.4 Calcium Level 8.5 Phosphorus Level 2.9 Magnesium Level 2.6 Total Bilirubin 0.3 Aspartate Amino Transf 33 (AST/SGOT) Alanine Aminotransferase 75 (ALT/SGPT) Alkaline Phosphatase 49 Total Creatine Kinase 285 Creatine Kinase MB 13.3 Creatine Kinase MB % 4.7 Total Protein 6.3 Albumin 2.6 Free Thyroxine 0.74 Free Triiodothyronine (T3) 0.88 pg/dL Troponin I 0.04 Result Diagram: 10/05/16 0449 10/05/16 0449 Imaging RADIOLOGY STUDIES/FILMS REVIEWED Abdomen X-Ray 10/05/16 0600 Signed Impressions: Service Date/Time: Wednesday, October 05, 2016 03:22 - CONCLUSION: Persistent abnormal dilatation of bowel. Todd Ortega MD Chest X-Ray 10/04/16 0000 Signed Impressions: Service Date/Time: Tuesday, October 04, 2016 09:36 - CONCLUSION: Suspected atelectasis at the right lung base. Otherwise, no acute finding is identified. Oliver Garcia MD Abdomen/Pelvis CT 10/04/16 0000 Signed Impressions: Service Date/Time: Tuesday, October 04, 2016 16:28 - CONCLUSION: 1. Severe colonic ileus which has increased slightly since October 01 with colon now measuring up to about 9.4 cm in diameter. Air is seen progressing distally into the rectosigmoid. 2. Mild anasarca. 3. Lawson catheter tip in bladder. 4. Mild right basilar airspace disease with dependent atelectasis. Jay Jay Burgess MD Assessment and Plan Assessment and Plan IMPRESSION Worsening leukocytosis, etiology to be determined - She has been on broad-spectrum antibiotics, cultures have been negative, chest x-ray okay, UA okay - Has been on the vent, last chest x-ray yesterday still with no consolidation seen - possibly due to intraabdominal source, concern with fungal Respiratory failure COPD Ileus, severe, has had 2 decompression RECOMMENDATION Continue Flagyl Stop Zosyn Stop Levaquin Add Diflucan 2 BC today UA and C/S Follow CBC Follow C/S Monitor progress I will follow along with you Thank you for this consultation Chinyere Atkins MD Oct 05, 2016 13:37
[2016-10-05] MEDS: SODIUM CHLORIDE 0.9% FLUSH 10 ML FLUSH IV FLUSH SCH ×2 (14:23→20:09)
[2016-10-05] MEDS: FLUCONAZOLE 400 MG PREMIX BAG 200 ML IV SCH (15:00)
[2016-10-05] MEDS: PANTOPRAZOLE SODIUM 40 MG VIAL IV PUSH SCH (15:41)
[2016-10-05] MEDS: METHYLNALTREXONE BROMIDE 12 MG/0.6 ML VIAL SQ SCH (15:42)
--- NOTE | 2016-10-05 16:07 | HHI.PR ---
Subjective Remarks C/R Surg afebrile, VSS UO fair lg liq stool X1 Objective - Vital Signs Date Time Temp Pulse Resp B/P Pulse Ox O2 Delivery O2 Flow Rate FiO2 10/05/16 12:25 94 40 10/05/16 06:00 87 10/05/16 04:00 98.3 14 153/96 Result Diagram: 10/05/16 0449 10/05/16448 Objective Remarks PE sedated, on vent Abd - lg, tight, +tympany, no mass KUB - distended colon A/P Assessment and Plan Imp: cont colonic ileus After rectal exam - lg amount liq stool + air evacuated - abd visibly decompressed cont placing on side - rectal exam for decompression PT if cont distention, could place loop colostomy or cecostomy Victor Manuel Yo MD Oct 05, 2016 16:07
--- NOTE | 2016-10-05 18:57 | HHI.PR ---
Subjective Remarks 56 YOWF with VDRF, sedated no Fever ON PCV, Fi02 40% Off Nimbex Sedated with,Versed and Fentanyl has abd distension., had decompressive colonoscopy by On Nimbex Objective Vital Signs Vital Signs Date Time Temp Pulse Resp B/P Pulse Ox O2 Delivery O2 Flow Rate FiO2 10/05/16 18:00 100 10/05/16 16:00 98.4 97 19 168/73 89 10/05/16 16:00 97 10/05/16 16:00 40 10/05/16 15:39 92 40 10/05/16 14:00 98 10/05/16 12:25 94 40 10/05/16 12:00 86 10/05/16 12:00 40 10/05/16 12:00 97.1 86 14 150/86 94 10/05/16 10:00 97 10/05/16 08:00 96.8 84 14 137/75 91 10/05/16 08:00 84 10/05/16 08:00 40 10/05/16 07:58 91 40 10/05/16 06:00 87 10/05/16 04:04 94 40 10/05/16 04:00 98.3 100 14 153/96 92 10/05/16 04:00 100 10/05/16 04:00 40 10/05/16 02:00 87 10/05/16 01:09 97 40 10/05/16 00:00 98.6 87 14 163/88 97 10/05/16 00:00 40 10/05/16 00:00 87 10/04/16 22:00 91 10/04/16 20:32 95 40 10/04/16 20:00 97.0 91 14 194/106 94 10/04/16 20:00 40 10/04/16 20:00 91 I/O 10/04/16 10/04/16 10/04/16 10/05/16 10/05/16 10/05/16 06:59 14:59 22:59 06:59 14:59 22:59 Intake Total 1080 ml 2016 ml 1309 ml 1044 ml 1359 ml Output Total 450 ml 750 ml 550 ml 650 ml 1250 ml Balance 630 ml 1266 ml 759 ml 394 ml 109 ml IV Total 419 ml 782 ml 601 ml 419 ml 1359 ml TPN/PPN 579 ml 774 ml 633 ml 536 ml Lipid 82 ml 100 ml 75 ml 89 ml Other 360 ml Output Urine Total 450 ml 750 ml 500 ml 500 ml 1250 ml Stool Total 50 ml 150 ml Result Diagram: 10/05/1644810/05/16448 Objective Remarks GENERAL: MBMN WF, on Vent SKIN: Warm and dry. HEAD: Normocephalic. EYES: No scleral icterus. No injection or drainage. NECK: Supple, trachea midline. No JVD or lymphadenopathy. CARDIOVASCULAR: Regular rate and rhythm without murmurs, gallops, or rubs. RESPIRATORY: Breath sounds equal bilaterally. No accessory muscle use. GASTROINTESTINAL: Abdomen soft, non-tender, nondistended. MUSCULOSKELETAL: No cyanosis, or edema. BACK: Nontender without obvious deformity. No CVA tenderness. A/P Assessment and Plan VDRF COPD Exac HTN Nicotine use PLAN sedation with Fentanyl, and Versed Aerosol nebs cont Steroids Cont Vent support DW family at BS Cont Nimbex Abd srill distended Abdirahman Marquez MD Oct 05, 2016 18:57
[2016-10-05] MEDS: hydrALAZINE HCL 20 MG/ML VIAL IV PUSH PRN (20:08)
[2016-10-05] MEDS: CLINIMIX E 4.25/5 2000 mL- >42 mls/hr IV SCH ×3 (20:09)
[2016-10-05] MEDS: FAT EMULSION 20% INJ 250 ML (@10 mls/hr) IV SCH (20:09)
[2016-10-05 23:12] LABS: BACTERIA, URINE RARE /hpf; BLOOD, URINE SMALL (NEG); GLUCOSE,URINE NEG (NEG); KETONE, URINE NEG (NEG); MUCUS URINE FEW /lpf (OCC); NITRITE,URINE NEG (NEG); PH, URINE 5.5 (5.0-8.5); URINE COLOR YELLOW (YELLW/STRAW)
[2016-10-05 23:13] LABS: COMMENT (UR) CATH-CULTURE IND; CULTURE IF INDICATED CATH CULTURE IND
[2016-10-06] VITALS (19 sets, daily range): BP systolic 120–161; BP diastolic 58–79; PULSE 90–114; RESP 14–35; TEMP 98.4–99.7; O2SAT 90–96
[2016-10-06] MEDS: MIDAZOLAM 100 MG/NS 100 ML DRIP Premix IV SCH ×2 (00:57→14:19)
[2016-10-06] MEDS: metroNIDAZOLE 500 MG INJ 100 ML IV SCH ×3 (00:57→18:08)
[2016-10-06] MEDS: PROPOFOL 1000 MG/100 ML INJ 100 ML IV SCH ×5 (02:53→23:20)
[2016-10-06] MEDS: methylPREDNISolone SOD SUCC 125 MG/2 ML VIAL IV SCH ×3 (02:53→19:59)
[2016-10-06] MEDS: DILTIAZEM HCL 60 MG TAB PO SCH ×4 (02:53→19:59)
[2016-10-06] MEDS: RESP: ALBUTEROL 2.5 MG/IPRATROPIUM 0.5 MG NEB (SCH) NEB ×5 (04:24→23:39)
[2016-10-06] MEDS: CISATRACURIUM INJ 100 MG in SODIUM CHLOR 0.9% 250 ML INJ 240 ML IV SCH (05:03)
--- NOTE | 2016-10-06 05:06 | RADRPT ---
EXAM DATE/TIME: 10/06/2016 03:45 [place] COMPARISON: ABDOMEN KUB ONLY, October 05, 2016, 3:22. INDICATIONS : Ileus. MEDICAL HISTORY : None. SURGICAL HISTORY : None. ENCOUNTER: Subsequent ACUITY: 2 weeks PAIN SCORE: Non-responsive. LOCATION: Bilateral abdomen. FINDINGS: Enteric tube is identified and the tip overlies the distal stomach. There are dilated loops of bowel again seen and slightly decreased in prominence at the level of the descending colon. Osseous structu res are intact. CONCLUSION: Slight decreased bowel dilatation. Todd Ortega MD on October 06, 2016 at 5:03 Board Certified Radiologist. This report was verified electronically.
[2016-10-06] MEDS: INSULIN NovoLIN REGULAR SUPPLEMENTAL SCALE SQ SCH ×4 (05:55→18:00)
[2016-10-06] MEDS: METOCLOPRAMIDE HCL 10 MG/2 ML VIAL IV PUSH SCH ×3 (05:55→23:03)
[2016-10-06 07:30] LABS: ALKALINE PHOSPHATASE 44 U/L (45-117); ALT (GPT) 72 U/L (10-53); TOTAL BILIRUBIN ADULT 0.3 MG/DL (0.2-1.0)
[2016-10-06 07:31] LABS: ANION GAP 6 MEQ/L (5-15); AST (GOT) 49 U/L (15-37); BICARBONATE 35.4 MEQ/L (21.0-32.0); BLOOD UREA NITROGEN 24 MG/DL (7-18); CHLORIDE 101 MEQ/L (98-107); GLOMERULAR FILTRATION RATE 122 ML/MIN (>89); MAGNESIUM 2.5 MG/DL (1.5-2.5); POTASSIUM 4.7 MEQ/L (3.5-5.1); SODIUM (NA) 142 MEQ/L (136-145)
[2016-10-06] MEDS: RESP: BUDESONIDE 0.5 MG/2 ML NEB NEB SCH ×2 (07:50→20:35)
[2016-10-06] MEDS: CHLORHEXIDINE 0.12% (ORAL KIT) 15 ML CUP MT SCH ×4 (08:00→19:59)
[2016-10-06] MEDS: PANTOPRAZOLE SODIUM 40 MG VIAL IV PUSH SCH (08:14)
[2016-10-06 09:00] LABS: AUTOMATED NEUTROPHIL # 35.7 TH/MM3 (1.8-7.7); BASOPHIL # 0.1 TH/MM3 (0-0.2); BASOPHIL % 0.3 % (0.0-2.0); HEMATOCRIT 39.8 % (35.0-46.0); LYMPH % 1.5 % (9.0-44.0); LYMPHOCYTE # 0.6 TH/MM3 (1.0-4.8); MEAN CELL VOLUME 91.8 FL (80.0-100.0); MEAN CORPUSCULAR HEMOGLOBIN 29.3 PG (27.0-34.0); MEAN CORPUSCULAR HGB CONC 31.9 % (32.0-36.0); MONO % 4.1 % (0.0-8.0); NEUT % 94.1 % (16.0-70.0); PLATELET COUNT 260 TH/MM3 (150-450); RED BLOOD COUNT 4.34 MIL/MM3 (4.00-5.30); RED CELL DISTRIBUTION WIDTH 13.3 % (11.6-17.2)
[2016-10-06] MEDS: BISACODYL 10 MG SUPP RECTAL SCH (09:00)
[2016-10-06] MEDS: DOCUSATE SODIUM 100 MG/10 ML UDC PO SCH ×2 (09:00→19:58)
[2016-10-06] MEDS: TIOTROPIUM BROMIDE 18 MCG INH INH SCH (09:00)
[2016-10-06 09:04] LABS: HEMO FLAGS AUTO DIFF
[2016-10-06 09:39] LABS: BANDS 17 % (0-6); CORRECTED NUCLEATED RBC 1 /100 WBC (0-0); METAMYELOCYTES 2 % (0-1); MYELOCYTES 3 % (0-0); NEUTROPHIL # MANUAL DIFF 35.3 TH/MM3 (1.8-7.7); POLYS (SEG NEUTROPHILS) 71 % (16-70); WBC DIFF SAMPLE 100
[2016-10-06 09:40] LABS: PLATELET ESTIMATE SMEAR NORMAL (NORMAL); PLATELET MORPHOLOGY NORMAL (NORMAL); SCAN/DIFF FINAL DIFF MANUAL
--- NOTE | 2016-10-06 10:18 | HHI.CCPN ---
Subjective Remarks/Hospital Course The patient is a 56-year-old female with past medical history of COPD and hypertension who presented to the [facility] ED with a 2-week history of progressive shortness of breath. In addition, she reports a dry cough and wheezing. The patient denies any constitutional symptoms. In addition she denies any nausea, vomiting, or abdominal pain. No history of orthopnea, PND or edema of lower extremities. She denies any use of oxygen at home; however, she uses nebulizers and is on Symbicort. In the ED the patient was given IV steroids and bronchodilator treatments. She was in the ER last night with the same presentation and after several hours of treatments she was discharged with a prescription for a tapered dose of prednisone. In addition, she was given a new albuterol inhaler. She came back a few hours later in respiratory distress. A chest x-ray from last night showed no acute disease. No laboratory data or blood gases available today; however, ABG from last night on a BiPAP 02/03 with 35% FIO2 showed a pH of 7.37, CO2 40, pAO2 of 105, bicarb 23 and saturation of 96%. 09/26 Patient was intubated yesterday for resp distress sedated with Versed 5mg and low doses Fentanyl and Diprivan. Afebrile. Given 1L NS last night for hypotension 09/27 Patient is sedated with Fentanyl and intubated. Afebrile. Patient was initially placed on PC/AC last night however his ABG showed acute resp acidosis with PH: 7.26,COP2 52 he was placed back on PRVC/AC mode. 09/28 Patient remains sedated with Fentanyl and versed placed on Nimbex overnight. Afebrile. WBC is trending down. 09/29 No events overnight. Sedated and intubated. Hypertensive. 09/30 Patient remains intubated and sedated. Off Nimbex. Afebrile. 10/01: Patient has significant bilateral wheezing. Abdominal distention increasing. No bowel movement since admission. KUB pending. Reduced RR to 14 to avoid air trapping 10/02 No events overnight, sedated with Fentanyl and Versed. Afebrile. s/p colonoscopy yesterday for colonic decompression, rectal tube to suction 10/03: . Plan for decompressive colonoscopy today due to 10.5 cm cecum. Patient is arousable and follows commands. FiO2 35%. Saturations 99%. No bowel movement. Subjective 10/04: Status post expressive colonoscopy yesterday. X-ray revealed 11.7 cm dilated: Today. Bladder pressures around 9-11. This a.m., asynchronous with the ventilator so paralyzed with rocuronium currently on a Nimbex drip. 10/05 Patient remains sedated and intubated in addition he is on Nimbex. Afebrile. 10/06 Patient remains intubated and sedated with Versed and Diprivan , on Nimbex. Afebrile. Objective Vital Signs Date Time Temp Pulse Resp B/P Pulse Ox O2 Delivery O2 Flow Rate FiO2 10/06/16 08:00 98.4 92 14 142/71 93 10/06/16 08:00 40 Intake and Output 10/05/16 10/05/16 10/05/16 07:59 15:59 23:59 Intake Total 1044 ml 1359 ml 1259 ml Output Total 650 ml 1250 ml 1450 ml Balance 394 ml 109 ml -191 ml Result Diagram: 10/06/16 0810 10/06/16 0552 Other Results Laboratory Tests Test 10/05/16 10/05/16 10/06/16 10/06/16 12:30 21:00 05:52 08:10 Troponin I 0.04 NG/ML Urine Color YELLOW Urine Turbidity CLEAR Urine pH 5.5 Urine Specific [place] 1.022 Urine Protein TRACE mg/dL Urine Glucose (UA) NEG mg/dL Urine Ketones NEG mg/dL Urine Occult Blood SMALL Urine Nitrite NEG Urine Bilirubin NEG Urine Urobilinogen LESS THAN 2.0 MG/DL Urine Leukocyte Esterase NEG Urine RBC 92 /hpf Urine WBC 3 /hpf Urine Bacteria RARE /hpf Urine Mucus FEW /lpf Microscopic Urinalysis Comment CATH-CULTURE IND Sodium Level 142 MEQ/L Potassium Level 4.7 MEQ/L Chloride Level 101 MEQ/L Carbon Dioxide Level 35.4 MEQ/L Anion Gap 6 MEQ/L Blood Urea Nitrogen 24 MG/DL Creatinine 0.52 MG/DL Estimat Glomerular Filtration 122 ML/MIN Rate Random Glucose 129 MG/DL Calcium Level 8.4 MG/DL Phosphorus Level 2.8 MG/DL Magnesium Level 2.5 MG/DL Total Bilirubin 0.3 MG/DL Aspartate Amino Transf 49 U/L (AST/SGOT) Alanine Aminotransferase 72 U/L (ALT/SGPT) Alkaline Phosphatase 44 U/L Total Protein 5.6 GM/DL Albumin 2.4 GM/DL White Blood Count 38.0 TH/MM3 Red Blood Count 4.34 MIL/MM3 Hemoglobin 12.7 GM/DL Hematocrit 39.8 % Mean Corpuscular Volume 91.8 FL Mean Corpuscular Hemoglobin 29.3 PG Mean Corpuscular Hemoglobin 31.9 % Concent Red Cell Distribution Width 13.3 % Platelet Count 260 TH/MM3 Mean Platelet Volume 8.6 FL Neutrophils (%) (Auto) 94.1 % Lymphocytes (%) (Auto) 1.5 % Monocytes (%) (Auto) 4.1 % Eosinophils (%) (Auto) 0.0 % Basophils (%) (Auto) 0.3 % Neutrophils # (Auto) 35.7 TH/MM3 Lymphocytes # (Auto) 0.6 TH/MM3 Monocytes # (Auto) 1.6 TH/MM3 Eosinophils # (Auto) 0.0 TH/MM3 Basophils # (Auto) 0.1 TH/MM3 CBC Comment AUTO DIFF Differential Total Cells 100 Counted Neutrophils % (Manual) 71 % Band Neutrophils % 17 % Lymphocytes % 4 % Monocytes % 3 % Neutrophils # (Manual) 35.3 TH/MM3 Metamyelocytes 2 % Myelocytes 3 % Nucleated Red Blood Cells 1 /100 WBC Differential Comment FINAL DIFF MANUAL Platelet Estimate NORMAL Platelet Morphology Comment NORMAL Red Cell Morphology Comment NORMAL Imaging Last Impressions Abdomen X-Ray 10/06/16 0600 Signed Impressions: Service Date/Time: Thursday, October 06, 2016 03:45 - CONCLUSION: Slight decreased bowel dilatation. Todd Ortega MD Chest X-Ray 10/04/16 0000 Signed Impressions: Service Date/Time: Tuesday, October 04, 2016 09:36 - CONCLUSION: Suspected atelectasis at the right lung base. Otherwise, no acute finding is identified. Oliver Garcia MD Abdomen/Pelvis CT 10/04/16 0000 Signed Impressions: Service Date/Time: Tuesday, October 04, 2016 16:28 - CONCLUSION: 1. Severe colonic ileus which has increased slightly since October 01 with colon now measuring up to about 9.4 cm in diameter. Air is seen progressing distally into the rectosigmoid. 2. Mild anasarca. 3. Lawson catheter tip in bladder. 4. Mild right basilar airspace disease with dependent atelectasis. Jay Jay Burgess MD Objective Remarks GENERAL: 56 yo female, critically ill currently intubated and paralyzed SKIN: Warm and dry. No rash HEAD: Normocephalic. EYES: No scleral icterus. No injection or drainage. NECK: Supple, trachea midline. No JVD or lymphadenopathy. CARDIOVASCULAR: Regular rate and rhythm without murmurs, gallops, or rubs. RESPIRATORY: Breath sounds equal bilaterally. Coarse BS, diffuse wheezing GASTROINTESTINAL: Abdomen distended. Tense. No bowel sounds appreciated after 2 minutes in all 4 quadrants MUSCULOSKELETAL: No significant peripheral edema. Neuro: Paralyzed on the ventilator. A/P Assessment and Plan Acute hypercarbic respiratory failure Acute COPD exacerbation. Hypertension. Bronchospasm Leukocytosis History of tobacco abuse. Colonic ileus Internal hemorrhoids Plan Neuro: On Diprivan and Versed infusions for sedation and vent synchrony. Resumed Nimbex 10/04 due to ventilator asynchrony. Wean off Nimbex/sedation as radha. Pulm: Continue with vent support and maintain sats > 92%. Bronchodilators, Pulmicort nebulizers q. 12, Spiriva one cap daily. taper Iv sternoids-continue Solu-Medrol 40mg Q8, ICU vent bundle. Pulm is following- Dr. Marquez CV: On Cardizem 60mg QID, Monitor HR and BP keep MAP>65mmHg. : Monitor renal function, I/O's and electrolyte replacement as needed. GI: On Protonix 40 mg IV daily. KUB today: Slight decreased bowel dilation. s/p rectal exam for decompression by Dr. Yo yesterday KUB 10/05- persistent abnormal dilation of bowel- on metoclopramide 10 mg IV every 8 hours. s/p colonoscopy 10/01 and 10/03 for colonic decompression -showed internal and external hemorrhoids. Currently on PPN at 75 cc an hour with lipids daily Continue aggressive bowel regimen with docusate sodium, Senokot, polyethylene glycol and lactulose ,Relistor daily GI and CRS following ID: On Flagyl and Diflucan, Off Levaquin, Zosyn ( d/c yesterday by ID), Monitor for signs of infections ( Fever, WBC) check C-diff PCR 10/05 Blood, Urine cx: NGTD 09/27 BC: NGTD 09/26, Sputum cx: normal growth, Urine : NGTD Endo: SSI with accuchecks. Heme: Monitor CBC. GI prophylaxis with Protonix 40 mg daily and DVT prophylaxis with SCDs and Lovenox 40 mg subcu daily. CCT 30 Carmita Oconnell MD Oct 06, 2016 10:18
--- NOTE | 2016-10-06 13:09 | HHI.IDPN ---
Subjective Subjective Remarks Patient is a 56-year-old female, with known COPD, presented to the hospital complaining of severe and worsening shortness of breath, cough. There was no fever or chills nausea or vomiting, abdominal pain, or any other GI complaints. Her initial chest x-ray was normal. She was admitted for COPD exacerbation, and on her first hospital day her shortness of breath got progressively worse so she ended up getting intubated. Patient has been on the vent since. Her cultures have been negative. She was laced on steroids. She started having problem with significant ileus, and patient has had 2 decompressive colonoscopies done. No abnormalities seen during her colonoscopy , no obstruction, no mass, no pseudomembrane. Since September for her white count started increasing. Patient has been on Zosyn, and Flagyl. Her WBC continues to increase. There is no record of any diarrhea. She has not been febrile. Notes reviewed Temps ok CRS notes reviewed WBC still rising AXR less dilatation Antibiotics Flagyl Diflucan Past Medical History COPD Hypertension Past Surgical History Tubal ligation Allergies: Coded Allergies: No Known Allergies (Unverified , 09/24/16) Objective . Vital Signs Date Time Temp Pulse Resp B/P Pulse Ox O2 Delivery O2 Flow Rate FiO2 10/06/16 12:00 98.6 91 26 120/58 92 10/06/16 12:00 50 10/06/16 09:54 92 50 10/06/16 08:00 60 10/06/16 08:00 98.4 92 14 142/71 93 10/06/16 08:00 40 10/06/16 07:49 96 60 10/06/16 06:00 99 10/06/16 04:26 95 60 10/06/16 04:00 60 10/06/16 04:00 103 10/06/16 04:00 99.4 103 14 159/79 95 10/06/16 02:00 113 10/06/16 00:00 60 10/06/16 00:00 99.1 113 14 161/74 93 10/06/16 00:00 114 10/05/16 23:30 94 60 10/05/16 22:00 112 10/05/16 21:30 93 60 10/05/16 20:00 40 10/05/16 20:00 98.8 104 14 195/91 91 10/05/16 20:00 104 10/05/16 18:00 100 10/05/16 16:00 98.4 97 19 168/73 89 10/05/16 16:00 97 10/05/16 16:00 40 10/05/16 15:39 92 40 10/05/16 14:00 98 10/05/16 10/05/16 10/06/16 15:00 23:00 07:00 Intake Total 1359 ml 1259 ml 1422 ml Output Total 1250 ml 1450 ml 1050 ml Balance 109 ml -191 ml 372 ml IV Total 1359 ml 560 ml 748 ml TPN/PPN 529 ml 595 ml Lipid 70 ml 79 ml Other 100 ml Output Urine Total 1250 ml 1250 ml 950 ml Gastric Drainage Total 200 ml 100 ml # Bowel Movements 1 . Laboratory Tests Test 10/04/16 10/05/16 10/06/16 15:35 04:49 08:10 White Blood Count 30.4 TH/MM3 32.6 TH/MM3 38.0 TH/MM3 Red Blood Count 4.65 MIL/MM3 4.83 MIL/MM3 4.34 MIL/MM3 Hemoglobin 14.2 GM/DL 14.2 GM/DL 12.7 GM/DL Hematocrit 41.7 % 43.9 % 39.8 % Mean Corpuscular Volume 89.6 FL 90.9 FL 91.8 FL Mean Corpuscular Hemoglobin 30.6 PG 29.5 PG 29.3 PG Mean Corpuscular Hemoglobin 34.2 % 32.4 % 31.9 % Concent Red Cell Distribution Width 13.2 % 13.5 % 13.3 % Platelet Count 276 TH/MM3 280 TH/MM3 260 TH/MM3 Mean Platelet Volume 8.4 FL 8.1 FL 8.6 FL Neutrophils (%) (Auto) 90.7 % % 94.1 % Lymphocytes (%) (Auto) 2.4 % % 1.5 % Monocytes (%) (Auto) 6.7 % % 4.1 % Eosinophils (%) (Auto) 0.0 % % 0.0 % Basophils (%) (Auto) 0.2 % % 0.3 % Neutrophils # (Auto) 27.6 TH/MM3 TH/MM3 35.7 TH/MM3 Lymphocytes # (Auto) 0.7 TH/MM3 TH/MM3 0.6 TH/MM3 Monocytes # (Auto) 2.0 TH/MM3 TH/MM3 1.6 TH/MM3 Eosinophils # (Auto) 0.0 TH/MM3 TH/MM3 0.0 TH/MM3 Basophils # (Auto) 0.1 TH/MM3 TH/MM3 0.1 TH/MM3 CBC Comment AUTO DIFF AUTO DIFF AUTO DIFF Differential Total Cells 100 100 100 Counted Neutrophils % (Manual) 86 % 85 % 71 % Band Neutrophils % 2 % 5 % 17 % Lymphocytes % 2 % 3 % 4 % Monocytes % 9 % 2 % 3 % Neutrophils # (Manual) 27.1 TH/MM3 31.0 TH/MM3 35.3 TH/MM3 Myelocytes 1 % 3 % 3 % Differential Comment FINAL DIFF FINAL DIFF FINAL DIFF MANUAL MANUAL MANUAL Platelet Estimate NORMAL NORMAL NORMAL Platelet Morphology Comment NORMAL NORMAL NORMAL Red Cell Morphology Comment NORMAL NORMAL Metamyelocytes 2 % 2 % Nucleated Red Blood Cells 1 /100 WBC Laboratory Tests Test 10/05/16 10/05/16 10/06/16 04:49 12:30 05:52 Sodium Level 140 MEQ/L 142 MEQ/L Potassium Level 4.1 MEQ/L 4.7 MEQ/L Chloride Level 101 MEQ/L 101 MEQ/L Carbon Dioxide Level 32.6 MEQ/L 35.4 MEQ/L Anion Gap 6 MEQ/L 6 MEQ/L Blood Urea Nitrogen 22 MG/DL 24 MG/DL Creatinine 0.47 MG/DL 0.52 MG/DL Estimat Glomerular Filtration 137 ML/MIN 122 ML/MIN Rate Random Glucose 154 MG/DL 129 MG/DL Lactic Acid Level 1.4 mmol/L Calcium Level 8.5 MG/DL 8.4 MG/DL Phosphorus Level 2.9 MG/DL 2.8 MG/DL Magnesium Level 2.6 MG/DL 2.5 MG/DL Total Bilirubin 0.3 MG/DL 0.3 MG/DL Aspartate Amino Transf 33 U/L 49 U/L (AST/SGOT) Alanine Aminotransferase 75 U/L 72 U/L (ALT/SGPT) Alkaline Phosphatase 49 U/L 44 U/L Total Creatine Kinase 285 U/L Creatine Kinase MB 13.3 NG/ML Creatine Kinase MB % 4.7 % Total Protein 6.3 GM/DL 5.6 GM/DL Albumin 2.6 GM/DL 2.4 GM/DL Free Thyroxine 0.74 NG/DL Free Triiodothyronine (T3) 0.88 PG/ML pg/dL Troponin I 0.04 NG/ML Microbiology Date/Time Procedure Status Source Growth 10/05/16 19:40 Aerobic Blood Culture - Preliminary Resulted Blood Peripheral NO GROWTH IN 1 DAY 10/05/16 19:40 Anaerobic Blood Culture - Preliminary Resulted Blood Peripheral NO GROWTH IN 1 DAY 10/05/16 19:45 Aerobic Blood Culture - Preliminary Resulted Blood Peripheral NO GROWTH IN 1 DAY 10/05/16 19:45 Anaerobic Blood Culture - Preliminary Resulted Blood Peripheral NO GROWTH IN 1 DAY 10/05/16 21:00 Urine Culture Received Urine Catheterized Urine Pending Imaging Abdomen X-Ray 10/06/16 0600 Signed Impressions: Service Date/Time: Thursday, October 06, 2016 03:45 - CONCLUSION: Slight decreased bowel dilatation. Todd Ortega MD Chest X-Ray 10/04/16 0000 Signed Impressions: Service Date/Time: Tuesday, October 04, 2016 09:36 - CONCLUSION: Suspected atelectasis at the right lung base. Otherwise, no acute finding is identified. Oliver Gacria MD Abdomen/Pelvis CT 10/04/16 0000 Signed Impressions: Service Date/Time: Tuesday, October 04, 2016 16:28 - CONCLUSION: 1. Severe colonic ileus which has increased slightly since October 01 with colon now measuring up to about 9.4 cm in diameter. Air is seen progressing distally into the rectosigmoid. 2. Mild anasarca. 3. Lawson catheter tip in bladder. 4. Mild right basilar airspace disease with dependent atelectasis. Jay Jay Burgess MD Physical Exam GENERAL: sedated, on the vent, not in respiratory distress. SKIN: Warm and dry. No generalized rash, no ecchymoses HEAD: Atraumatic. Normocephalic. No temporal wasting, or tenderness. EYES: [place] conjunctiva. No petechia or hemorrhage. Pupils equal, round and reactive to light. No scleral icterus. No injection or drainage. EARS, NOSE AND THROAT: Nose without bleeding or purulent nasal discharge. She is orally intubated. Has NG tube in place, LIWS, has bilious fluid NECK: Trachea midline. Supple and not tender, no meningeal signs CARDIOVASCULAR: Regular rate and rhythm. No murmurs, rubs or gallops heard RESPIRATORY: She has rhonchi on the right side, decreased on the left side. ABDOMEN: Globular and distended, bowel sounds are hypoactive, no reaction to deep palpation. EXTREMITIES: No clubbing, cyanosis. Has edema of feet. Warm. NEUROLOGICAL: Sedated PSYCHIATRIC: Unable to assess LINE: No evidence of infection : Lawson in place, urine looks clear Assessment & Plan Remarks IMPRESSION Worsening leukocytosis, etiology to be determined - likely due to severe ileus - She has been on broad-spectrum antibiotics, cultures have been negative, chest x-ray okay, UA okay - Has been on the vent, last chest x-ray yesterday still with no consolidation seen Respiratory failure COPD Ileus, severe, has had 2 decompression RECOMMENDATION Continue Flagyl Continue Diflucan Follow C/S Follow CBC Monitor progress Chinyere Atkins MD Oct 06, 2016 13:09
[2016-10-06] MEDS: SODIUM CHLORIDE 0.9% FLUSH 10 ML FLUSH IV FLUSH SCH ×2 (14:17→19:59)
[2016-10-06] MEDS: ENOXAPARIN SODIUM 40 MG/0.4 ML SYRINGE SQ SCH (14:18)
[2016-10-06] MEDS: FLUCONAZOLE 400 MG PREMIX BAG 200 ML IV SCH (14:20)
--- NOTE | 2016-10-06 15:43 | HHI.GIFU ---
Subjective Remarks Pt intubated on vent. Still distended Objective Vitals I&O Vital Signs Date Time Temp Pulse Resp B/P Pulse Ox O2 Delivery O2 Flow Rate FiO2 10/06/16 13:27 92 50 10/06/16 12:00 98.6 91 26 120/58 92 10/06/16 12:00 50 10/06/16 09:54 92 50 10/06/16 08:00 60 10/06/16 08:00 98.4 92 14 142/71 93 10/06/16 08:00 40 10/06/16 07:49 96 60 10/06/16 06:00 99 10/06/16 04:26 95 60 10/06/16 04:00 60 10/06/16 04:00 103 10/06/16 04:00 99.4 103 14 159/79 95 10/06/16 02:00 113 10/06/16 00:00 60 10/06/16 00:00 99.1 113 14 161/74 93 10/06/16 00:00 114 10/05/16 23:30 94 60 10/05/16 22:00 112 10/05/16 21:30 93 60 10/05/16 20:00 40 10/05/16 20:00 98.8 104 14 195/91 91 10/05/16 20:00 104 10/05/16 18:00 100 10/05/16 16:00 98.4 97 19 168/73 89 10/05/16 16:00 97 10/05/16 16:00 40 10/05/16 15:39 92 40 I/O 10/05/16 10/05/16 10/05/16 10/06/16 10/06/16 10/06/16 07:00 15:00 23:00 07:00 15:00 23:00 Intake Total 1044 ml 1359 ml 1259 ml 1422 ml Output Total 650 ml 1250 ml 1450 ml 1050 ml 1775 ml Balance 394 ml 109 ml -191 ml 372 ml -1775 ml IV Total 419 ml 1359 ml 560 ml 748 ml TPN/PPN 536 ml 529 ml 595 ml Lipid 89 ml 70 ml 79 ml Other 100 ml Output Urine Total 500 ml 1250 ml 1250 ml 950 ml 1775 ml Stool Total 150 ml Gastric Drainage Total 200 ml 100 ml # Bowel Movements 1 Laboratory Laboratory Tests Test 10/05/16 10/06/16 10/06/16 21:00 05:52 08:10 Urine Color YELLOW Urine Turbidity CLEAR Urine pH 5.5 Urine Specific [place] 1.022 Urine Protein TRACE Urine Glucose (UA) NEG Urine Ketones NEG Urine Occult Blood SMALL Urine Nitrite NEG Urine Bilirubin NEG Urine Urobilinogen LESS THAN 2.0 Urine Leukocyte Esterase NEG Urine RBC 92 Urine WBC 3 Urine Bacteria RARE Urine Mucus FEW Microscopic Urinalysis Comment CATH-CULTURE IND Sodium Level 142 Potassium Level 4.7 Chloride Level 101 Carbon Dioxide Level 35.4 Anion Gap 6 Blood Urea Nitrogen 24 Creatinine 0.52 Estimat Glomerular Filtration 122 Rate Random Glucose 129 Calcium Level 8.4 Phosphorus Level 2.8 Magnesium Level 2.5 Total Bilirubin 0.3 Aspartate Amino Transf 49 (AST/SGOT) Alanine Aminotransferase 72 (ALT/SGPT) Alkaline Phosphatase 44 Total Protein 5.6 Albumin 2.4 White Blood Count 38.0 Red Blood Count 4.34 Hemoglobin 12.7 Hematocrit 39.8 Mean Corpuscular Volume 91.8 Mean Corpuscular Hemoglobin 29.3 Mean Corpuscular Hemoglobin 31.9 Concent Red Cell Distribution Width 13.3 Platelet Count 260 Mean Platelet Volume 8.6 Neutrophils (%) (Auto) 94.1 Lymphocytes (%) (Auto) 1.5 Monocytes (%) (Auto) 4.1 Eosinophils (%) (Auto) 0.0 Basophils (%) (Auto) 0.3 Neutrophils # (Auto) 35.7 Lymphocytes # (Auto) 0.6 Monocytes # (Auto) 1.6 Eosinophils # (Auto) 0.0 Basophils # (Auto) 0.1 CBC Comment AUTO DIFF Differential Total Cells 100 Counted Neutrophils % (Manual) 71 Band Neutrophils % 17 Lymphocytes % 4 Monocytes % 3 Neutrophils # (Manual) 35.3 Metamyelocytes 2 Myelocytes 3 Nucleated Red Blood Cells 1 Differential Comment FINAL DIFF MANUAL Platelet Estimate NORMAL Platelet Morphology Comment NORMAL Red Cell Morphology Comment NORMAL Date/Time Procedure Status Source Growth 10/05/16 21:00 Urine Culture Received Urine Catheterized Urine Pending 10/05/16 19:45 Aerobic Blood Culture - Preliminary Resulted Blood Peripheral NO GROWTH IN 1 DAY 10/05/16 19:45 Anaerobic Blood Culture - Preliminary Resulted Blood Peripheral NO GROWTH IN 1 DAY Imaging Last Impressions Abdomen X-Ray 10/06/16 0600 Signed Impressions: Service Date/Time: Thursday, October 06, 2016 03:45 - CONCLUSION: Slight decreased bowel dilatation. Todd Ortega MD Chest X-Ray 10/04/16 0000 Signed Impressions: Service Date/Time: Tuesday, October 04, 2016 09:36 - CONCLUSION: Suspected atelectasis at the right lung base. Otherwise, no acute finding is identified. Oliver Garcia MD Abdomen/Pelvis CT 10/04/16 0000 Signed Impressions: Service Date/Time: Tuesday, October 04, 2016 16:28 - CONCLUSION: 1. Severe colonic ileus which has increased slightly since October 01 with colon now measuring up to about 9.4 cm in diameter. Air is seen progressing distally into the rectosigmoid. 2. Mild anasarca. 3. Lawson catheter tip in bladder. 4. Mild right basilar airspace disease with dependent atelectasis. Jay Jay Burgess MD Physical Exam HEENT: Normocephalic; atraumatic; no jaundice. CHEST: OETT to vent. CARDIAC: RRR ABDOMEN: Firm, tympanic, distended. Hypoactive bowel sounds. EXTREMITIES: Generalized edema, more in upper extremities, trace edema ble. 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 Assessment and Plan Plan ASSESSMENT - Severe colonic ileus/constipation. s/p Rectal exam by CRS with subsequent liquid stool and gas emission S/P Decompressive colonoscopy (10/01/16)--1. Poor prep colonic decompression- marked improvement 2. Retroflexed views revealed internal hemorrhoids 3. Retroflexed views revealed small internal hemorrhoids 4. Revealed internal hemorrhoids. S/P Decompressive colonoscopy (10/03/16)--> 1. Poor prep ulcer rectum 2. Retroflexed views revealed internal hemorrhoid 3. Retroflexed views revealed small internal hemorrhoids 4. Revealed external hemorrhoids 5. Revealed internal hemorrhoid. Abdomen/ Pelvis CT (10/04/16)-----> 1. Severe colonic ileus which has increased slightly since October 01 with colon now measuring up to about 9.4 cm in diameter. Air is seen progressing distally into the rectosigmoid. 2. Mild anasarca. 3. Lawson catheter tip in bladder. 4. Mild right basilar airspace disease with dependent atelectasis. Abdomen X-Ray (10/05/16)----> Persistent abnormal dilatation of bowel. S/P Enemas, S/P Neostigmine (10/04). On bowel regimen- Reglan, lactulose, senna, colace, relistor. Pt remains distended, with tympanic abdomen. However, she did have a large liquid stool while I was in the room (after today's xray). CRS following. - Acute hypercarbic resp failure, acute COPD exacerbation, bronchospasm, vent per CCM - Leukocytosis. worsening. BCx no growth 5 days, Urine cx no growth 48 hours- Zosyn, Flagyl, Levaquin. - HTN per attending. PLAN - colonoscopic decompression tomorrow - obtain consents - hold lovenox - NPO - TPN - Cont. Reglan - Cont. Lactulose - Cont. Senna - Cont. Colace - CRS following - Supportive care - Further recommendations to follow based on results of above - Patient seen and examined by Dr. Buckley and myself and this note is written on his behalf. Korina Foley [facility] Oct 06, 2016 15:43
--- NOTE | 2016-10-06 19:07 | HHI.PR ---
Subjective Remarks 56 YOWF with VDRF, sedated no Fever ON PCV, Fi02 65% Sedated with,Versed and Fentanyl and Diprivan has abd distension decreased., WBC increased Objective Vital Signs Vital Signs Date Time Temp Pulse Resp B/P Pulse Ox O2 Delivery O2 Flow Rate FiO2 10/06/16 16:00 99.7 96 32 122/66 92 10/06/16 15:40 90 65 10/06/16 13:27 92 50 10/06/16 12:00 98.6 91 26 120/58 92 10/06/16 12:00 50 10/06/16 09:54 92 50 10/06/16 08:00 60 10/06/16 08:00 98.4 92 14 142/71 93 10/06/16 08:00 40 10/06/16 07:49 96 60 10/06/16 06:00 99 10/06/16 04:26 95 60 10/06/16 04:00 60 10/06/16 04:00 103 10/06/16 04:00 99.4 103 14 159/79 95 10/06/16 02:00 113 10/06/16 00:00 60 10/06/16 00:00 99.1 113 14 161/74 93 10/06/16 00:00 114 10/05/16 23:30 94 60 10/05/16 22:00 112 10/05/16 21:30 93 60 10/05/16 20:00 40 10/05/16 20:00 98.8 104 14 195/91 91 10/05/16 20:00 104 I/O 10/05/16 10/05/16 10/05/16 10/06/16 10/06/16 10/06/16 07:00 15:00 23:00 07:00 15:00 23:00 Intake Total 1044 ml 1359 ml 1259 ml 1422 ml 2931 ml Output Total 650 ml 1250 ml 1450 ml 1050 ml 1775 ml Balance 394 ml 109 ml -191 ml 372 ml 1156 ml IV Total 419 ml 1359 ml 560 ml 748 ml 1370 ml TPN/PPN 536 ml 529 ml 595 ml 1561 ml Lipid 89 ml 70 ml 79 ml Other 100 ml Output Urine Total 500 ml 1250 ml 1250 ml 950 ml 1775 ml Stool Total 150 ml Gastric Drainage Total 200 ml 100 ml # Bowel Movements 1 Result Diagram: 10/06/16 0810 10/06/16 0552 Objective Remarks GENERAL: MBMN WF, on Vent SKIN: Warm and dry. HEAD: Normocephalic. EYES: No scleral icterus. No injection or drainage. NECK: Supple, trachea midline. No JVD or lymphadenopathy. CARDIOVASCULAR: Regular rate and rhythm without murmurs, gallops, or rubs. RESPIRATORY: Breath sounds equal bilaterally. No accessory muscle use. GASTROINTESTINAL: Abdomen soft, non-tender, nondistended. MUSCULOSKELETAL: No cyanosis, or edema. BACK: Nontender without obvious deformity. No CVA tenderness. A/P Assessment and Plan VDRF COPD Exac HTN Nicotine use PLAN sedation with Fentanyl, and Versed Aerosol nebs cont Steroids Cont Vent support DW family at BS Wean [id number] CBC Abx per Abdirahman Farris MD Oct 06, 2016 19:07
[2016-10-06] MEDS: FAT EMULSION 20% INJ 250 ML (@10 mls/hr) IV SCH (19:59)
[2016-10-06] MEDS: CLINIMIX E 4.25/5 2000 mL- >42 mls/hr IV SCH ×3 (19:59)
[2016-10-07] VITALS (18 sets, daily range): BP systolic 95–144; BP diastolic 54–72; PULSE 76–100; RESP 16–25; TEMP 98.4–99.2; O2SAT 93–97
[2016-10-07] MEDS: metroNIDAZOLE 500 MG INJ 100 ML IV SCH ×3 (01:25→16:24)
[2016-10-07] MEDS: DILTIAZEM HCL 60 MG TAB PO SCH ×4 (02:33→20:44)
[2016-10-07] MEDS: PROPOFOL 1000 MG/100 ML INJ 100 ML IV SCH ×5 (02:34→17:29)
[2016-10-07] MEDS: RESP: ALBUTEROL 2.5 MG/IPRATROPIUM 0.5 MG NEB (SCH) NEB ×6 (03:49→23:19)
[2016-10-07] MEDS: MIDAZOLAM 100 MG/NS 100 ML DRIP Premix IV SCH ×2 (04:33→13:53)
[2016-10-07] MEDS: methylPREDNISolone SOD SUCC 125 MG/2 ML VIAL IV SCH ×3 (05:36→20:44)
[2016-10-07] MEDS: METOCLOPRAMIDE HCL 10 MG/2 ML VIAL IV PUSH SCH ×3 (05:36→21:52)
[2016-10-07 05:57] LABS: BASOPHIL % 0.2 % (0.0-2.0); HEMATOCRIT 36.8 % (35.0-46.0); LYMPH % 2.4 % (9.0-44.0); LYMPHOCYTE # 0.7 TH/MM3 (1.0-4.8); MEAN CELL VOLUME 91.2 FL (80.0-100.0); MEAN CORPUSCULAR HEMOGLOBIN 29.9 PG (27.0-34.0); MEAN CORPUSCULAR HGB CONC 32.7 % (32.0-36.0); MONO % 4.4 % (0.0-8.0); PLATELET COUNT 228 TH/MM3 (150-450); RED BLOOD COUNT 4.04 MIL/MM3 (4.00-5.30); RED CELL DISTRIBUTION WIDTH 13.6 % (11.6-17.2); WHITE BLOOD COUNT 29.1 TH/MM3 (4.0-11.0)
--- NOTE | 2016-10-07 05:57 | RADRPT ---
EXAM DATE/TIME: 10/07/2016 04:36 [facility] COMPARISON: CHEST SINGLE AP, October 04, 2016, 9:36. INDICATIONS : Short of breath. MEDICAL HISTORY : Chronic obstructive pulmonary disease. SURGICAL HISTORY : None. ENCOUNTER: Subsequent ACUITY: 2 weeks PAIN SCORE: 0/10 LOCATION: Bilateral chest FINDINGS: There is consolidation in the left lower lobe. The lungs are otherwise clear. Endotracheal tube tip a t the tip terminates grossly 1.3 cm above the joel. Enteric tube courses beneath the diaphragm. CONCLUSION: Left lower lobe consolidation. Todd Ortega MD on October 07, 2016 at 5:55 Board Certified Radiologist. This report was verified electronically.
[2016-10-07] MEDS: INSULIN NovoLIN REGULAR SUPPLEMENTAL SCALE SQ SCH ×4 (06:00→17:28)
[2016-10-07 06:01] LABS: HEMO FLAGS AUTO DIFF
[2016-10-07 06:21] LABS: ALT (GPT) 73 U/L (10-53)
[2016-10-07 06:23] LABS: ALKALINE PHOSPHATASE 42 U/L (45-117); TOTAL BILIRUBIN ADULT 0.3 MG/DL (0.2-1.0)
[2016-10-07 06:24] LABS: ANION GAP 5 MEQ/L (5-15); AST (GOT) 53 U/L (15-37); BICARBONATE 31.9 MEQ/L (21.0-32.0); BLOOD UREA NITROGEN 28 MG/DL (7-18); CHLORIDE 104 MEQ/L (98-107); GLOMERULAR FILTRATION RATE 148 ML/MIN (>89); POTASSIUM 4.4 MEQ/L (3.5-5.1); SODIUM (NA) 141 MEQ/L (136-145)
[2016-10-07 07:02] LABS: METAMYELOCYTES 1 % (0-1); NEUTROPHIL # MANUAL DIFF 26.2 TH/MM3 (1.8-7.7); POLYS (SEG NEUTROPHILS) 89 % (16-70); WBC DIFF SAMPLE 100
[2016-10-07 07:04] LABS: PLATELET MORPHOLOGY NORMAL (NORMAL); SCAN/DIFF FINAL DIFF MANUAL
[2016-10-07 07:05] LABS: C. DIFF EPI 027 PRESUMPTIVE NEGATIVE (NEGATIVE)
[2016-10-07] MEDS: RESP: BUDESONIDE 0.5 MG/2 ML NEB NEB SCH ×2 (08:03→19:54)
[2016-10-07] MEDS: BISACODYL 10 MG SUPP RECTAL SCH (08:10)
[2016-10-07] MEDS: DOCUSATE SODIUM 100 MG/10 ML UDC PO SCH ×2 (08:10→20:44)
[2016-10-07] MEDS: CHLORHEXIDINE 0.12% (ORAL KIT) 15 ML CUP MT SCH ×4 (08:10→20:00)
[2016-10-07] MEDS: SODIUM CHLORIDE 0.9% FLUSH 10 ML FLUSH IV FLUSH SCH ×2 (08:12→20:45)
[2016-10-07] MEDS: PANTOPRAZOLE SODIUM 40 MG VIAL IV PUSH SCH (08:13)
[2016-10-07] MEDS: TIOTROPIUM BROMIDE 18 MCG INH INH SCH (09:00)
--- NOTE | 2016-10-07 09:01 | HHI.IDPN ---
Subjective Subjective Remarks Patient is a 56-year-old female, with known COPD, presented to the hospital complaining of severe and worsening shortness of breath, cough. There was no fever or chills nausea or vomiting, abdominal pain, or any other GI complaints. Her initial chest x-ray was normal. She was admitted for COPD exacerbation, and on her first hospital day her shortness of breath got progressively worse so she ended up getting intubated. Patient has been on the vent since. Her cultures have been negative. She was laced on steroids. She started having problem with significant ileus, and patient has had 2 decompressive colonoscopies done. No abnormalities seen during her colonoscopy , no obstruction, no mass, no pseudomembrane. Since September for her white count started increasing. Patient has been on Zosyn, and Flagyl. Her WBC continues to increase. There is no record of any diarrhea. She has not been febrile. Notes reviewed Temps low grade D/W RN Decompression scheduled today Sedated on the vent BP ok Good UO WBC down to 29 CXR with L base opacity Not a lot of secretions C diff negative Antibiotics Flagyl Diflucan Lines PIV Past Medical History COPD Hypertension Past Surgical History Tubal ligation Allergies: Coded Allergies: No Known Allergies (Unverified , 09/24/16) Objective . Vital Signs Date Time Temp Pulse Resp B/P Pulse Ox O2 Delivery O2 Flow Rate FiO2 10/07/16 08:05 97 60 10/07/16 06:00 96 10/07/16 04:00 65 10/07/16 04:00 99.0 100 25 133/72 93 10/07/16 04:00 100 10/07/16 03:50 95 65 10/07/16 02:00 88 10/07/16 00:00 99.2 96 24 144/67 95 10/07/16 00:00 96 10/07/16 00:00 65 10/06/16 23:40 96 65 10/06/16 22:00 90 10/06/16 22:00 99.4 90 35 126/62 95 10/06/16 20:38 93 65 10/06/16 20:00 65 10/06/16 20:00 93 10/06/16 18:00 100 10/06/16 16:00 99.7 96 32 122/66 92 10/06/16 16:00 96 10/06/16 15:40 90 65 10/06/16 14:00 93 10/06/16 13:27 92 50 10/06/16 12:00 98.6 91 26 120/58 92 10/06/16 12:00 91 10/06/16 12:00 50 10/06/16 10:00 96 10/06/16 09:54 92 50 10/06/16 10/06/16 10/07/16 15:00 23:00 07:00 Intake Total 2931 ml 1139 ml 911 ml Output Total 1775 ml 2050 ml 2050 ml Balance 1156 ml -911 ml -1139 ml IV Total 1370 ml 485 ml 355 ml TPN/PPN 1561 ml 575 ml 487 ml Lipid 79 ml 69 ml Output Urine Total 1775 ml 2000 ml 1950 ml Gastric Drainage Total 50 ml 100 ml # Bowel Movements 1 . Laboratory Tests Test 10/06/16 10/07/16 08:10 05:05 White Blood Count 38.0 TH/MM3 29.1 TH/MM3 Red Blood Count 4.34 MIL/MM3 4.04 MIL/MM3 Hemoglobin 12.7 GM/DL 12.1 GM/DL Hematocrit 39.8 % 36.8 % Mean Corpuscular Volume 91.8 FL 91.2 FL Mean Corpuscular Hemoglobin 29.3 PG 29.9 PG Mean Corpuscular Hemoglobin 31.9 % 32.7 % Concent Red Cell Distribution Width 13.3 % 13.6 % Platelet Count 260 TH/MM3 228 TH/MM3 Mean Platelet Volume 8.6 FL 9.3 FL Neutrophils (%) (Auto) 94.1 % 93.0 % Lymphocytes (%) (Auto) 1.5 % 2.4 % Monocytes (%) (Auto) 4.1 % 4.4 % Eosinophils (%) (Auto) 0.0 % 0.0 % Basophils (%) (Auto) 0.3 % 0.2 % Neutrophils # (Auto) 35.7 TH/MM3 27.0 TH/MM3 Lymphocytes # (Auto) 0.6 TH/MM3 0.7 TH/MM3 Monocytes # (Auto) 1.6 TH/MM3 1.3 TH/MM3 Eosinophils # (Auto) 0.0 TH/MM3 0.0 TH/MM3 Basophils # (Auto) 0.1 TH/MM3 0.0 TH/MM3 CBC Comment AUTO DIFF AUTO DIFF Differential Total Cells 100 100 Counted Neutrophils % (Manual) 71 % 89 % Band Neutrophils % 17 % Lymphocytes % 4 % 8 % Monocytes % 3 % 2 % Neutrophils # (Manual) 35.3 TH/MM3 26.2 TH/MM3 Metamyelocytes 2 % 1 % Myelocytes 3 % Nucleated Red Blood Cells 1 /100 WBC Differential Comment FINAL DIFF FINAL DIFF MANUAL MANUAL Platelet Estimate NORMAL Platelet Morphology Comment NORMAL NORMAL Red Cell Morphology Comment NORMAL Laboratory Tests Test 10/05/16 10/06/16 10/07/16 12:30 05:52 05:05 Troponin I 0.04 NG/ML Sodium Level 142 MEQ/L 141 MEQ/L Potassium Level 4.7 MEQ/L 4.4 MEQ/L Chloride Level 101 MEQ/L 104 MEQ/L Carbon Dioxide Level 35.4 MEQ/L 31.9 MEQ/L Anion Gap 6 MEQ/L 5 MEQ/L Blood Urea Nitrogen 24 MG/DL 28 MG/DL Creatinine 0.52 MG/DL 0.44 MG/DL Estimat Glomerular Filtration 122 ML/MIN 148 ML/MIN Rate Random Glucose 129 MG/DL 114 MG/DL Calcium Level 8.4 MG/DL 7.9 MG/DL Phosphorus Level 2.8 MG/DL Magnesium Level 2.5 MG/DL Total Bilirubin 0.3 MG/DL 0.3 MG/DL Aspartate Amino Transf 49 U/L 53 U/L (AST/SGOT) Alanine Aminotransferase 72 U/L 73 U/L (ALT/SGPT) Alkaline Phosphatase 44 U/L 42 U/L Total Protein 5.6 GM/DL 5.1 GM/DL Albumin 2.4 GM/DL 2.1 GM/DL Microbiology Date/Time Procedure Status Source Growth 10/05/16 19:40 Aerobic Blood Culture - Preliminary Resulted Blood Peripheral NO GROWTH IN 1 DAY 10/05/16 19:40 Anaerobic Blood Culture - Preliminary Resulted Blood Peripheral NO GROWTH IN 1 DAY 10/05/16 19:45 Aerobic Blood Culture - Preliminary Resulted Blood Peripheral NO GROWTH IN 1 DAY 10/05/16 19:45 Anaerobic Blood Culture - Preliminary Resulted Blood Peripheral NO GROWTH IN 1 DAY 10/05/16 21:00 Urine Culture - Preliminary Resulted Urine Catheterized Urine RESULTS PENDING Imaging Abdomen X-Ray 10/06/16 0600 Signed Impressions: Service Date/Time: Thursday, October 06, 2016 03:45 - CONCLUSION: Slight decreased bowel dilatation. Todd Ortega MD Chest X-Ray 10/04/16 0000 Signed Impressions: Service Date/Time: Tuesday, October 04, 2016 09:36 - CONCLUSION: Suspected atelectasis at the right lung base. Otherwise, no acute finding is identified. lOiver Garcia MD Abdomen/Pelvis CT 10/04/16 0000 Signed Impressions: Service Date/Time: Tuesday, October 04, 2016 16:28 - CONCLUSION: 1. Severe colonic ileus which has increased slightly since October 01 with colon now measuring up to about 9.4 cm in diameter. Air is seen progressing distally into the rectosigmoid. 2. Mild anasarca. 3. Lawson catheter tip in bladder. 4. Mild right basilar airspace disease with dependent atelectasis. Jay Jay Burgess MD Physical Exam GENERAL: sedated, on the vent, not in respiratory distress. SKIN: Warm and dry. No generalized rash, no ecchymoses HEAD: Atraumatic. Normocephalic. No temporal wasting, or tenderness. EYES: [place] conjunctiva. No petechia or hemorrhage. Pupils equal, round and reactive to light. No scleral icterus. No injection or drainage. EARS, NOSE AND THROAT: Nose without bleeding or purulent nasal discharge. She is orally intubated. Has NG tube in place, LIWS, has bilious fluid NECK: Trachea midline. Supple and not tender, no meningeal signs CARDIOVASCULAR: Regular rate and rhythm. No murmurs, rubs or gallops heard RESPIRATORY: She has rhonchi on the right side, decreased on the left side. ABDOMEN: Globular and softer, bowel sounds are hypoactive, no reaction to deep palpation. Tympanitic on percussion EXTREMITIES: No clubbing, cyanosis. Has edema of feet. Warm. NEUROLOGICAL: Sedated PSYCHIATRIC: Unable to assess LINE: No evidence of infection : Lawson in place, urine looks clear Assessment & Plan Remarks IMPRESSION Leukocytosis, etiology to be determined - likely due to severe ileus - She has been on broad-spectrum antibiotics, cultures have been negative, chest x-ray okay, UA okay - Has been on the vent, last chest x-ray yesterday still with no consolidation seen Respiratory failure COPD Ileus, severe, has had 2 decompression - softer abdomen today - for decompression again today by GI RECOMMENDATION Continue Flagyl Continue Diflucan Follow C/S Follow CBC Monitor progress D/W Chinyere Macias MD Oct 07, 2016 09:01
--- NOTE | 2016-10-07 09:33 | HHI.CCPN ---
Subjective Remarks/Hospital Course The patient is a 56-year-old female with past medical history of COPD and hypertension who presented to the [facility] ED with a 2-week history of progressive shortness of breath. In addition, she reports a dry cough and wheezing. The patient denies any constitutional symptoms. In addition she denies any nausea, vomiting, or abdominal pain. No history of orthopnea, PND or edema of lower extremities. She denies any use of oxygen at home; however, she uses nebulizers and is on Symbicort. In the ED the patient was given IV steroids and bronchodilator treatments. She was in the ER last night with the same presentation and after several hours of treatments she was discharged with a prescription for a tapered dose of prednisone. In addition, she was given a new albuterol inhaler. She came back a few hours later in respiratory distress. A chest x-ray from last night showed no acute disease. No laboratory data or blood gases available today; however, ABG from last night on a BiPAP 02/03 with 35% FIO2 showed a pH of 7.37, CO2 40, pAO2 of 105, bicarb 23 and saturation of 96%. 09/26 Patient was intubated yesterday for resp distress sedated with Versed 5mg and low doses Fentanyl and Diprivan. Afebrile. Given 1L NS last night for hypotension 09/27 Patient is sedated with Fentanyl and intubated. Afebrile. Patient was initially placed on PC/AC last night however his ABG showed acute resp acidosis with PH: 7.26,COP2 52 he was placed back on PRVC/AC mode. 09/28 Patient remains sedated with Fentanyl and versed placed on Nimbex overnight. Afebrile. WBC is trending down. 09/29 No events overnight. Sedated and intubated. Hypertensive. 09/30 Patient remains intubated and sedated. Off Nimbex. Afebrile. 10/01: Patient has significant bilateral wheezing. Abdominal distention increasing. No bowel movement since admission. KUB pending. Reduced RR to 14 to avoid air trapping 10/02 No events overnight, sedated with Fentanyl and Versed. Afebrile. s/p colonoscopy yesterday for colonic decompression, rectal tube to suction 10/03: . Plan for decompressive colonoscopy today due to 10.5 cm cecum. Patient is arousable and follows commands. FiO2 35%. Saturations 99%. No bowel movement. Subjective 10/04: Status post expressive colonoscopy yesterday. X-ray revealed 11.7 cm dilated: Today. Bladder pressures around 9-11. This a.m., asynchronous with the ventilator so paralyzed with rocuronium currently on a Nimbex drip. 10/05 Patient remains sedated and intubated in addition he is on Nimbex. Afebrile. 10/06 Patient remains intubated and sedated with Versed and Diprivan , on Nimbex. Afebrile. 10/07: Remains intubated, sedated. Abdomen remains distended. GI planning on decompressive colonoscopy today. Overnight had bowel movement. FiO2 remains high at 60%. Chest x-ray shows left lower lobe consolidation. Start cefepime 2 g IV every 8 hours Objective Vital Signs Date Time Temp Pulse Resp B/P Pulse Ox O2 Delivery O2 Flow Rate FiO2 10/07/16 08:05 97 60 10/07/16 08:00 78 10/07/16 08:00 98.7 22 95/54 Intake and Output 10/06/16 10/06/16 10/07/16 08:00 16:00 00:00 Intake Total 1422 ml 2931 ml 1139 ml Output Total 1050 ml 1775 ml 2050 ml Balance 372 ml 1156 ml -911 ml Result Diagram: 10/07/16 0505 10/07/16 0505 Imaging Last Impressions Abdomen X-Ray 10/06/16 0600 Signed Impressions: Service Date/Time: Thursday, October 06, 2016 03:45 - CONCLUSION: Slight decreased bowel dilatation. Todd Ortega MD Chest X-Ray 10/04/16 0000 Signed Impressions: Service Date/Time: Tuesday, October 04, 2016 09:36 - CONCLUSION: Suspected atelectasis at the right lung base. Otherwise, no acute finding is identified. Oliver Garcia MD Abdomen/Pelvis CT 10/04/16 0000 Signed Impressions: Service Date/Time: Tuesday, October 04, 2016 16:28 - CONCLUSION: 1. Severe colonic ileus which has increased slightly since October 01 with colon now measuring up to about 9.4 cm in diameter. Air is seen progressing distally into the rectosigmoid. 2. Mild anasarca. 3. Lawson catheter tip in bladder. 4. Mild right basilar airspace disease with dependent atelectasis. Jay Jay Burgess MD Objective Remarks GENERAL: 56 yo female, critically ill currently intubated and heavily sedated SKIN: Warm and dry. No rash. HEAD: Normocephalic. EYES: No scleral icterus. No injection or drainage. NECK: Supple, trachea midline. No JVD or lymphadenopathy. CARDIOVASCULAR: Regular rate and rhythm without murmurs, gallops, or rubs. RESPIRATORY: Breath sounds equal bilaterally. Coarse BS, diffuse wheezing. FiO2 60% GASTROINTESTINAL: Abdomen distended. Tense. No bowel sounds appreciated. MUSCULOSKELETAL: No significant peripheral edema. Neuro: Intubated heavily sedated, limits neuro exam Urinary Catheter: Yes Assessment to: Continue A/P Assessment and Plan Acute hypercarbic respiratory failure Acute COPD exacerbation. Colonic ileus LLL infiltrate/Probable HCAP Bronchospasm Leukocytosis History of tobacco abuse. Hypertension. Internal hemorrhoids Plan Neuro: On Diprivan and Versed infusions for sedation and vent synchrony. Resumed Nimbex 10/04 due to ventilator asynchrony. Now DCd Wean off Nimbex/sedation as radha. Pulm:Continue with vent support and maintain sats > 90%. Bronchodilators, Pulmicort nebulizers q. 12, Spiriva one cap daily. Solu-Medrol 40mg Q8, ICU vent bundle. Pulm is following- Dr. Marquez Currently FiO2 60%. Increase PEEP to 8 and reduce FiO2 to 50% CV: On Cardizem 60mg QID, Monitor HR and BP keep MAP>65mmHg. : Monitor renal function, I/O's and electrolyte replacement as needed. GI: On Protonix 40 mg IV daily. Plan for decompressive colonoscopy today 10/07 KUB 10/06: Slight decreased bowel dilation. s/p rectal exam for decompression by Dr. Yo yesterday KUB 10/05- persistent abnormal dilation of bowel- on metoclopramide 10 mg IV every 8 hours. s/p colonoscopy 10/01 and 10/03 for colonic decompression -showed internal and external hemorrhoids. Currently on PPN at 75 cc an hour with lipids daily Continue aggressive bowel regimen with docusate sodium, Senokot, polyethylene glycol and lactulose ,Relistor daily GI and CRS following Had 1 BM overnight (10/06/16 night) ID: On Flagyl and Diflucan, Off Levaquin, Zosyn ( d/cd 10/05 by ID), Monitor for signs of infections ( Fever, WBC) C-diff PCR-neg Start cefepime due to LLL infiltrate. Send repeat sputum culture 10/05 Blood, Urine cx: NGTD 09/27 BC: NGTD 09/26, Sputum cx: normal growth, Urine : NGTD Endo: SSI with accuchecks. Heme: Monitor CBC. GI prophylaxis with Protonix 40 mg daily and DVT prophylaxis with SCDs and Lovenox 40 mg subcu daily. CCT 33 MIN Patient remains critically ill with high FiO2 requirement 60% and respiratory failure, colonic ileus. Chest x-ray shows new left lower lobe infiltrate most likely healthcare associated pneumonia Mirian Boyd MD Oct 07, 2016 09:33
[2016-10-07] MEDS: CEFEPIME INJ 2,000 MG in SODIUM CHLORIDE 0.9% INJ 100 ML IV SCH ×2 (10:06→16:24)
--- NOTE | 2016-10-07 11:17 | HHI.GIFU ---
Subjective Remarks Colonoscopy performed for decompression and to check for signs of infection. Cecum could not be confirmed due to stool. No sign of infection. No colitis. Air aspirated. Objective Vitals I&O Vital Signs Date Time Temp Pulse Resp B/P Pulse Ox O2 Delivery O2 Flow Rate FiO2 10/07/16 10:00 82 10/07/16 08:05 97 60 10/07/16 08:00 78 10/07/16 08:00 50 10/07/16 08:00 98.7 78 22 95/54 96 10/07/16 06:00 96 10/07/16 04:00 65 10/07/16 04:00 99.0 100 25 133/72 93 10/07/16 04:00 100 10/07/16 03:50 95 65 10/07/16 02:00 88 10/07/16 00:00 99.2 96 24 144/67 95 10/07/16 00:00 96 10/07/16 00:00 65 10/06/16 23:40 96 65 10/06/16 22:00 90 10/06/16 22:00 99.4 90 35 126/62 95 10/06/16 20:38 93 65 10/06/16 20:00 65 10/06/16 20:00 93 10/06/16 18:00 100 10/06/16 16:00 99.7 96 32 122/66 92 10/06/16 16:00 96 10/06/16 15:40 90 65 10/06/16 14:00 93 10/06/16 13:27 92 50 10/06/16 12:00 98.6 91 26 120/58 92 10/06/16 12:00 91 10/06/16 12:00 50 I/O 10/06/16 10/06/16 10/06/16 10/07/16 10/07/16 10/07/16 07:00 15:00 23:00 07:00 15:00 23:00 Intake Total 1422 ml 2931 ml 1139 ml 911 ml Output Total 1050 ml 1775 ml 2050 ml 2050 ml Balance 372 ml 1156 ml -911 ml -1139 ml IV Total 748 ml 1370 ml 485 ml 355 ml TPN/PPN 595 ml 1561 ml 575 ml 487 ml Lipid 79 ml 79 ml 69 ml Output Urine Total 950 ml 1775 ml 2000 ml 1950 ml Gastric Drainage Total 100 ml 50 ml 100 ml # Bowel Movements 1 1 Laboratory Laboratory Tests Test 10/07/16 10/07/16 05:00 05:05 Stool C. difficile Toxin (PCR) NEGATIVE Stl C. difficile Toxin PRESUMPTIVE Epiderm 027 NEGATIVE White Blood Count 29.1 Red Blood Count 4.04 Hemoglobin 12.1 Hematocrit 36.8 Mean Corpuscular Volume 91.2 Mean Corpuscular Hemoglobin 29.9 Mean Corpuscular Hemoglobin 32.7 Concent Red Cell Distribution Width 13.6 Platelet Count 228 Mean Platelet Volume 9.3 Neutrophils (%) (Auto) 93.0 Lymphocytes (%) (Auto) 2.4 Monocytes (%) (Auto) 4.4 Eosinophils (%) (Auto) 0.0 Basophils (%) (Auto) 0.2 Neutrophils # (Auto) 27.0 Lymphocytes # (Auto) 0.7 Monocytes # (Auto) 1.3 Eosinophils # (Auto) 0.0 Basophils # (Auto) 0.0 CBC Comment AUTO DIFF Differential Total Cells 100 Counted Neutrophils % (Manual) 89 Lymphocytes % 8 Monocytes % 2 Neutrophils # (Manual) 26.2 Metamyelocytes 1 Differential Comment FINAL DIFF MANUAL Platelet Morphology Comment NORMAL Sodium Level 141 Potassium Level 4.4 Chloride Level 104 Carbon Dioxide Level 31.9 Anion Gap 5 Blood Urea Nitrogen 28 Creatinine 0.44 Estimat Glomerular Filtration 148 Rate Random Glucose 114 Calcium Level 7.9 Total Bilirubin 0.3 Aspartate Amino Transf 53 (AST/SGOT) Alanine Aminotransferase 73 (ALT/SGPT) Alkaline Phosphatase 42 Total Protein 5.1 Albumin 2.1 Date/Time Procedure Status Source Growth 10/05/16 21:00 Urine Culture - Final Complete Urine Catheterized Urine NO GROWTH IN 48 HOURS. 10/05/16 19:45 Aerobic Blood Culture - Preliminary Resulted Blood Peripheral NO GROWTH IN 2 DAYS 10/05/16 19:45 Anaerobic Blood Culture - Preliminary Resulted Blood Peripheral NO GROWTH IN 2 DAYS Physical Exam HEENT: Normocephalic; atraumatic; no jaundice. CHEST: OETT to vent. CARDIAC: RRR ABDOMEN: Firm, tympanic, distended. Hypoactive bowel sounds. EXTREMITIES: Generalized edema, more in upper extremities, trace edema ble. QUILL SKINNER: Sedated on vent. Assessment and Plan Plan ASSESSMENT - Severe colonic ileus/constipation. s/p Rectal exam by CRS with subsequent liquid stool and gas emission S/P Decompressive colonoscopy (10/01/16)--1. Poor prep colonic decompression- marked improvement 2. Retroflexed views revealed internal hemorrhoids 3. Retroflexed views revealed small internal hemorrhoids 4. Revealed internal hemorrhoids. S/P Decompressive colonoscopy (10/03/16)--> 1. Poor prep ulcer rectum 2. Retroflexed views revealed internal hemorrhoid 3. Retroflexed views revealed small internal hemorrhoids 4. Revealed external hemorrhoids 5. Revealed internal hemorrhoid. Abdomen/ Pelvis CT (10/04/16)-----> 1. Severe colonic ileus which has increased slightly since October 01 with colon now measuring up to about 9.4 cm in diameter. Air is seen progressing distally into the rectosigmoid. 2. Mild anasarca. 3. Lawson catheter tip in bladder. 4. Mild right basilar airspace disease with dependent atelectasis. Abdomen X-Ray (10/05/16)----> Persistent abnormal dilatation of bowel. S/P Enemas, S/P Neostigmine (10/04). On bowel regimen- Reglan, lactulose, senna, colace, relistor. Pt remains distended, with tympanic abdomen. However, she did have a large liquid stool while I was in the room (after today's xray). CRS following. - Acute hypercarbic resp failure, acute COPD exacerbation, bronchospasm, vent per CCM - Leukocytosis. worsening. BCx no growth 5 days, Urine cx no growth 48 hours- Zosyn, Flagyl, Levaquin. - HTN per attending. [place] on 10/07 OK. No infection or ischemia. Air aspirated. Plan: - Miralax one dose daily -- NPO - TPN - Cont. Reglan - Cont. Lactulose - Cont. Senna - Cont. Colace - CRS following - Supportive care Donnie Buckley MD Oct 07, 2016 11:17
--- NOTE | 2016-10-07 12:32 | HHI.PR ---
Subjective Remarks C/R Surg afebrile, VSS UO fair lg liq stool X1 still on vent Objective - Vital Signs Date Time Temp Pulse Resp B/P Pulse Ox O2 Delivery O2 Flow Rate FiO2 10/07/16 11:55 97 60 10/07/16 10:00 82 10/07/16 08:00 98.7 22 95/54 Result Diagram: 10/07/16 0505 10/07/16 0505 Objective Remarks PE sedated, on vent Abd - lg, soft, mild tympany, no mass KUB - distended colon, but less than prev A/P Assessment and Plan Imp: cont colonic ileus After rectal exam - lg amount liq stool + air evacuated - abd visibly decompressed cont placing on side - rectal exam for decompression PT underwent colonoscopy again this morning - will sign off , can reconsult Victor Manuel Botello MD Oct 07, 2016 12:31
[2016-10-07] MEDS: FLUCONAZOLE 400 MG PREMIX BAG 200 ML IV SCH (15:43)
--- NOTE | 2016-10-07 17:25 | HHI.PR ---
Subjective Remarks 56 YOWF with VDRF, sedated no Fever ON PCV, Fi02 65% Sedated with,Versed and Diprivan has abd distension decreased., had Decompression again Objective Vital Signs Vital Signs Date Time Temp Pulse Resp B/P Pulse Ox O2 Delivery O2 Flow Rate FiO2 10/07/16 16:00 55 10/07/16 16:00 76 10/07/16 16:00 98.6 76 24 115/57 95 10/07/16 15:00 94 55 10/07/16 14:00 78 10/07/16 12:00 78 10/07/16 12:00 55 10/07/16 12:00 99.0 78 24 96/54 96 10/07/16 11:55 97 60 10/07/16 10:00 82 10/07/16 08:05 97 60 10/07/16 08:00 78 10/07/16 08:00 50 10/07/16 08:00 98.7 78 22 95/54 96 10/07/16 06:00 96 10/07/16 04:00 65 10/07/16 04:00 99.0 100 25 133/72 93 10/07/16 04:00 100 10/07/16 03:50 95 65 10/07/16 02:00 88 10/07/16 00:00 99.2 96 24 144/67 95 10/07/16 00:00 96 10/07/16 00:00 65 10/06/16 23:40 96 65 10/06/16 22:00 90 10/06/16 22:00 99.4 90 35 126/62 95 10/06/16 20:38 93 65 10/06/16 20:00 65 10/06/16 20:00 93 10/06/16 18:00 100 I/O 10/06/16 10/06/16 10/06/16 10/07/16 10/07/16 10/07/16 06:59 14:59 22:59 06:59 14:59 22:59 Intake Total 1422 ml 2931 ml 1139 ml 911 ml 1188 ml Output Total 1050 ml 1775 ml 2050 ml 2050 ml 1050 ml Balance 372 ml 1156 ml -911 ml -1139 ml 138 ml IV Total 748 ml 1370 ml 485 ml 355 ml 487 ml TPN/PPN 595 ml 1561 ml 575 ml 487 ml 631 ml Lipid 79 ml 79 ml 69 ml 70 ml Output Urine Total 950 ml 1775 ml 2000 ml 1950 ml 1000 ml Gastric Drainage Total 100 ml 50 ml 100 ml 50 ml # Bowel Movements 1 1 1 Result Diagram: 10/07/16 0505 10/07/16 0505 Objective Remarks GENERAL: MBMN WF, on Vent SKIN: Warm and dry. HEAD: Normocephalic. EYES: No scleral icterus. No injection or drainage. NECK: Supple, trachea midline. No JVD or lymphadenopathy. CARDIOVASCULAR: Regular rate and rhythm without murmurs, gallops, or rubs. RESPIRATORY: Breath sounds equal bilaterally. No accessory muscle use. GASTROINTESTINAL: Abdomen soft, non-tender, nondistended. MUSCULOSKELETAL: No cyanosis, or edema. BACK: Nontender without obvious deformity. No CVA tenderness. A/P Assessment and Plan VDRF COPD Exac HTN Nicotine use PLAN sedation with Fentanyl, and Versed Aerosol nebs cont Steroids Cont Vent support Wean Fi02 Monitor CBC Abx per Abdirahman Farris MD Oct 07, 2016 17:25
[2016-10-07] MEDS: CLINIMIX E 4.25/5 2000 mL- >42 mls/hr IV SCH ×3 (20:45)
[2016-10-07] MEDS: FAT EMULSION 20% INJ 250 ML (@10 mls/hr) IV SCH (20:45)
[2016-10-08] VITALS (36 sets, daily range): BP systolic 84–136; BP diastolic 48–70; PULSE 70–85; RESP 15–24; TEMP 98.4–99; O2SAT 91–100
[2016-10-08] MEDS: DILTIAZEM HCL 60 MG TAB PO SCH ×4 (01:30→20:11)
[2016-10-08] MEDS: metroNIDAZOLE 500 MG INJ 100 ML IV SCH ×3 (01:31→17:03)
[2016-10-08] MEDS: CEFEPIME INJ 2,000 MG in SODIUM CHLORIDE 0.9% INJ 100 ML IV SCH ×3 (01:31→17:31)
[2016-10-08] MEDS: PROPOFOL 1000 MG/100 ML INJ 100 ML IV SCH ×6 (02:48→21:20)
[2016-10-08] MEDS: RESP: ALBUTEROL 2.5 MG/IPRATROPIUM 0.5 MG NEB (SCH) NEB ×4 (03:36→14:47)
[2016-10-08] MEDS: methylPREDNISolone SOD SUCC 125 MG/2 ML VIAL IV SCH ×3 (03:52→20:11)
[2016-10-08] MEDS: MIDAZOLAM 100 MG/NS 100 ML DRIP Premix IV SCH ×2 (05:54→20:11)
[2016-10-08] MEDS: METOCLOPRAMIDE HCL 10 MG/2 ML VIAL IV PUSH SCH ×3 (05:55→22:00)
[2016-10-08] MEDS: INSULIN NovoLIN REGULAR SUPPLEMENTAL SCALE SQ SCH ×4 (05:56→18:00)
[2016-10-08] MEDS: CHLORHEXIDINE 0.12% (ORAL KIT) 15 ML CUP MT SCH ×4 (08:00→20:00)
[2016-10-08] MEDS: RESP: BUDESONIDE 0.5 MG/2 ML NEB NEB SCH ×2 (08:01→20:22)
[2016-10-08] MEDS: PANTOPRAZOLE SODIUM 40 MG VIAL IV PUSH SCH (08:13)
[2016-10-08] MEDS: TIOTROPIUM BROMIDE 18 MCG INH INH SCH (08:13)
[2016-10-08] MEDS: SODIUM CHLORIDE 0.9% FLUSH 10 ML FLUSH IV FLUSH SCH ×2 (08:14→20:11)
[2016-10-08] MEDS: POLYETHYLENE GLYCOL 17 GM PKG PEG SCH (08:14)
[2016-10-08] MEDS: DOCUSATE SODIUM 100 MG/10 ML UDC PO SCH ×2 (08:14→20:11)
[2016-10-08] MEDS: BISACODYL 10 MG SUPP RECTAL SCH (08:15)
--- NOTE | 2016-10-08 08:44 | HHI.CCPN ---
Subjective Remarks/Hospital Course The patient is a 56-year-old female with past medical history of COPD and hypertension who presented to the [facility] ED with a 2-week history of progressive shortness of breath. In addition, she reports a dry cough and wheezing. The patient denies any constitutional symptoms. In addition she denies any nausea, vomiting, or abdominal pain. No history of orthopnea, PND or edema of lower extremities. She denies any use of oxygen at home; however, she uses nebulizers and is on Symbicort. In the ED the patient was given IV steroids and bronchodilator treatments. She was in the ER last night with the same presentation and after several hours of treatments she was discharged with a prescription for a tapered dose of prednisone. In addition, she was given a new albuterol inhaler. She came back a few hours later in respiratory distress. A chest x-ray from last night showed no acute disease. No laboratory data or blood gases available today; however, ABG from last night on a BiPAP 02/03 with 35% FIO2 showed a pH of 7.37, CO2 40, pAO2 of 105, bicarb 23 and saturation of 96%. 09/26 Patient was intubated yesterday for resp distress sedated with Versed 5mg and low doses Fentanyl and Diprivan. Afebrile. Given 1L NS last night for hypotension 09/27 Patient is sedated with Fentanyl and intubated. Afebrile. Patient was initially placed on PC/AC last night however his ABG showed acute resp acidosis with PH: 7.26,COP2 52 he was placed back on PRVC/AC mode. 09/28 Patient remains sedated with Fentanyl and versed placed on Nimbex overnight. Afebrile. WBC is trending down. 09/29 No events overnight. Sedated and intubated. Hypertensive. 09/30 Patient remains intubated and sedated. Off Nimbex. Afebrile. 10/01: Patient has significant bilateral wheezing. Abdominal distention increasing. No bowel movement since admission. KUB pending. Reduced RR to 14 to avoid air trapping 10/02 No events overnight, sedated with Fentanyl and Versed. Afebrile. s/p colonoscopy yesterday for colonic decompression, rectal tube to suction 10/03: . Plan for decompressive colonoscopy today due to 10.5 cm cecum. Patient is arousable and follows commands. FiO2 35%. Saturations 99%. No bowel movement. Subjective 10/04: Status post expressive colonoscopy yesterday. X-ray revealed 11.7 cm dilated: Today. Bladder pressures around 9-11. This a.m., asynchronous with the ventilator so paralyzed with rocuronium currently on a Nimbex drip. 10/05 Patient remains sedated and intubated in addition he is on Nimbex. Afebrile. 10/06 Patient remains intubated and sedated with Versed and Diprivan , on Nimbex. Afebrile. 10/07: Remains intubated, sedated. Abdomen remains distended. GI planning on decompressive colonoscopy today. Overnight had bowel movement. FiO2 remains high at 60%. Chest x-ray shows left lower lobe consolidation. Start cefepime 2 g IV every 8 hours 10/08 Patient is sedated with Versed and Diprivan. s/p colonoscopy yesterday for colonic decompression. On PRVC with PEEP:8 and 505 FIO2. Objective Vital Signs Date Time Temp Pulse Resp B/P Pulse Ox O2 Delivery O2 Flow Rate FiO2 10/08/16 08:01 93 40 10/08/16 06:00 80 10/08/16 04:00 98.6 21 121/56 Intake and Output 10/07/16 10/07/16 10/08/16 08:00 16:00 00:00 Intake Total 911 ml 1188 ml 1359 ml Output Total 2050 ml 1050 ml 1400 ml Balance -1139 ml 138 ml -41 ml Result Diagram: 10/07/16 0505 10/07/16 0505 Imaging Last Impressions Chest X-Ray 10/07/16 0000 Signed Impressions: Service Date/Time: Friday, October 07, 2016 04:36 - CONCLUSION: Left lower lobe consolidation. Todd Ortega MD Abdomen X-Ray 10/06/16 0600 Signed Impressions: Service Date/Time: Thursday, October 06, 2016 03:45 - CONCLUSION: Slight decreased bowel dilatation. Todd Ortega MD Abdomen/Pelvis CT 10/04/16 0000 Signed Impressions: Service Date/Time: Tuesday, October 04, 2016 16:28 - CONCLUSION: 1. Severe colonic ileus which has increased slightly since October 01 with colon now measuring up to about 9.4 cm in diameter. Air is seen progressing distally into the rectosigmoid. 2. Mild anasarca. 3. Lawson catheter tip in bladder. 4. Mild right basilar airspace disease with dependent atelectasis. Jay Jay Burgess MD Objective Remarks GENERAL: 56 yo female, critically ill currently intubated and heavily sedated SKIN: Warm and dry. No rash. HEAD: Normocephalic. EYES: No scleral icterus. No injection or drainage. NECK: Supple, trachea midline. No JVD or lymphadenopathy. CARDIOVASCULAR: Regular rate and rhythm without murmurs, gallops, or rubs. RESPIRATORY: Breath sounds equal bilaterally. Coarse BS, diffuse wheezing. FiO2 60% GASTROINTESTINAL: Abdomen distended. Tense. No bowel sounds appreciated. MUSCULOSKELETAL: No significant peripheral edema. Neuro: Intubated heavily sedated, limits neuro exam A/P Assessment and Plan Acute hypercarbic respiratory failure Acute COPD exacerbation. Colonic ileus LLL infiltrate/Probable HCAP Bronchospasm Leukocytosis History of tobacco abuse. Hypertension. Internal hemorrhoids Plan Neuro: On Diprivan and Versed infusions for sedation and vent synchrony. Daily sedation vacation. Off Nimbex Pulm:Continue with vent support and maintain sats > 90%. On PRVC RR 14, TV 550, PEEP:8, FIO2 50%, decrease 40% Bronchodilators, Pulmicort nebulizers q. 12, Spiriva one cap daily. Solu-Medrol 40mg Q8, ICU vent bundle. Pulm is following- Dr. Marquez CV: On Cardizem 60mg QID, Monitor HR and BP keep MAP>65mmHg. : Monitor renal function, I/O's and electrolyte replacement as needed. GI: On Protonix 40 mg IV daily. s/p colonoscopy 10/07 for colonic decompression. Check KUB today KUB 10/06: Slight decreased bowel dilation. s/p rectal exam for decompression by Dr. Yo yesterday KUB 10/05- persistent abnormal dilation of bowel- on metoclopramide 10 mg IV every 8 hours. s/p colonoscopy 10/01 and 10/03 for colonic decompression -showed internal and external hemorrhoids. Currently on PPN at 75 cc an hour with lipids daily Continue aggressive bowel regimen with docusate sodium, Senokot, polyethylene glycol and lactulose ,Relistor daily GI and CRS following ID: On Flagyl, Diflucan, Cefepime . Monitor for signs of infections ( Fever, WBC) C-diff PCR-neg Follow up on sputum culture from 10/07 10/05 Blood, Urine cx: NGTD 09/27 BC: NGTD 09/26, Sputum cx: normal growth, Urine : NGTD Endo: SSI with accuchecks. Heme: Monitor CBC. GI prophylaxis with Protonix 40 mg daily and DVT prophylaxis with SCDs and Lovenox 40 mg subcu daily. Follow up on labs today CCT 33 MIN Carmita Oconnell MD Oct 08, 2016 08:44
--- NOTE | 2016-10-08 09:24 | RADRPT ---
EXAM DATE/TIME: 10/08/2016 08:39 [facility] COMPARISON: CT ABDOMEN & PELVIS W CONTRAST, October 04, 2016, 16:28. ABDOMEN KUB ONLY, October 06, 2016, 3:45. INDICATIONS : Evaluate for an Ileus. MEDICAL HISTORY : Hypertension. Chronic obstructive pulmonary disease. Asthma. SURGICAL HISTORY : None. ENCOUNTER: Subsequent ACUITY: 1 week PAIN SCORE: Non-responsive. LOCATION: Abdomen. FINDINGS: Nasogastric tube is present good position. There is persistent fluid and gaseous distention of what a ppears to be mainly colon. There may be slight improvement. CONCLUSION: Slight improvement in gaseous distention of bowel Oliver Harman MD on October 08, 2016 at 9:13 Board Certified Radiologist. This report was verified electronically.
[2016-10-08 13:01] LABS: AUTOMATED NEUTROPHIL # 23.7 TH/MM3 (1.8-7.7); BASOPHIL # 0.2 TH/MM3 (0-0.2); BASOPHIL % 0.7 % (0.0-2.0); HEMATOCRIT 34.5 % (35.0-46.0); LYMPH % 2.2 % (9.0-44.0); LYMPHOCYTE # 0.6 TH/MM3 (1.0-4.8); MEAN CELL VOLUME 89.6 FL (80.0-100.0); MEAN CORPUSCULAR HEMOGLOBIN 30.3 PG (27.0-34.0); MEAN CORPUSCULAR HGB CONC 33.8 % (32.0-36.0); MONO % 6.3 % (0.0-8.0); NEUT % 90.8 % (16.0-70.0); PLATELET COUNT 222 TH/MM3 (150-450); RED BLOOD COUNT 3.85 MIL/MM3 (4.00-5.30); RED CELL DISTRIBUTION WIDTH 13.4 % (11.6-17.2); WHITE BLOOD COUNT 26.1 TH/MM3 (4.0-11.0)
[2016-10-08 13:04] LABS: HEMO FLAGS AUTO DIFF
[2016-10-08 13:20] LABS: ALT (GPT) 116 U/L (10-53); ANION GAP 7 MEQ/L (5-15); AST (GOT) 62 U/L (15-37); BICARBONATE 28.9 MEQ/L (21.0-32.0); BLOOD UREA NITROGEN 31 MG/DL (7-18); CHLORIDE 105 MEQ/L (98-107); GLOMERULAR FILTRATION RATE 199 ML/MIN (>89); POTASSIUM 4.3 MEQ/L (3.5-5.1); SODIUM (NA) 141 MEQ/L (136-145)
[2016-10-08 13:22] LABS: ALKALINE PHOSPHATASE 41 U/L (45-117); TOTAL BILIRUBIN ADULT 0.3 MG/DL (0.2-1.0)
[2016-10-08 13:34] LABS: BANDS 2 % (0-6); METAMYELOCYTES 1 % (0-1); MYELOCYTES 1 % (0-0); NEUTROPHIL # MANUAL DIFF 23.8 TH/MM3 (1.8-7.7); PLATELET ESTIMATE SMEAR NORMAL (NORMAL); PLATELET MORPHOLOGY NORMAL (NORMAL); POLYS (SEG NEUTROPHILS) 87 % (16-70); SCAN/DIFF FINAL DIFF MANUAL; WBC DIFF SAMPLE 100
[2016-10-08] MEDS: FLUCONAZOLE 400 MG PREMIX BAG 200 ML IV SCH (14:14)
--- NOTE | 2016-10-08 15:29 | HHI.IDPN ---
Subjective Subjective Remarks Patient is a 56-year-old female, with known COPD, presented to the hospital complaining of severe and worsening shortness of breath, cough. There was no fever or chills nausea or vomiting, abdominal pain, or any other GI complaints. Her initial chest x-ray was normal. She was admitted for COPD exacerbation, and on her first hospital day her shortness of breath got progressively worse so she ended up getting intubated. Patient has been on the vent since. Her cultures have been negative. She was laced on steroids. She started having problem with significant ileus, and patient has had 2 decompressive colonoscopies done. No abnormalities seen during her colonoscopy , no obstruction, no mass, no pseudomembrane. Since September for her white count started increasing. Patient has been on Zosyn, and Flagyl. Her WBC continues to increase. There is no record of any diarrhea. She has not been febrile. Notes reviewed Temps ok Had repeat colonoscopy yesterday Sedated on the vent BP ok Good UO WBC down to 26 CXR with L base opacity Not a lot of secretions C diff negative Antibiotics Flagyl Diflucan Lines PIV Past Medical History COPD Hypertension Past Surgical History Tubal ligation Allergies: Coded Allergies: No Known Allergies (Unverified , 09/24/16) Objective . Vital Signs Date Time Temp Pulse Resp B/P Pulse Ox O2 Delivery O2 Flow Rate FiO2 10/08/16 15:15 95 40 10/08/16 12:00 50 10/08/16 12:00 83 10/08/16 12:00 98.5 83 20 121/64 95 10/08/16 11:30 76 17 92/50 95 10/08/16 11:11 94 45 10/08/16 11:00 76 18 86/50 95 10/08/16 10:30 79 19 84/48 95 10/08/16 10:00 79 21 84/69 94 10/08/16 10:00 80 10/08/16 09:00 83 19 109/59 91 10/08/16 08:30 80 21 108/59 92 10/08/16 08:01 93 40 10/08/16 08:00 50 10/08/16 08:00 84 10/08/16 08:00 98.4 84 23 116/64 94 10/08/16 07:30 83 20 120/63 95 10/08/16 07:00 85 21 116/63 94 10/08/16 06:30 85 22 112/65 92 10/08/16 06:00 80 10/08/16 06:00 80 16 104/57 95 10/08/16 05:30 80 18 114/62 95 10/08/16 05:00 79 15 114/62 96 10/08/16 04:50 100 100 10/08/16 04:50 97 50 10/08/16 04:00 98.6 82 21 121/56 94 10/08/16 04:00 82 10/08/16 04:00 50 10/08/16 02:00 80 10/08/16 01:15 93 50 10/08/16 00:00 79 10/08/16 00:00 50 10/08/16 00:00 98.7 79 21 113/56 91 10/07/16 22:29 95 50 10/07/16 22:00 80 10/07/16 20:00 50 10/07/16 20:00 76 10/07/16 20:00 98.4 76 16 126/68 97 10/07/16 19:52 95 50 10/07/16 18:00 79 10/07/16 16:00 55 10/07/16 16:00 76 10/07/16 16:00 98.6 76 24 115/57 95 10/07/16 10/07/16 10/08/16 15:00 23:00 07:00 Intake Total 1188 ml 1359 ml 1167 ml Output Total 1050 ml 1400 ml 1505 ml Balance 138 ml -41 ml -338 ml IV Total 487 ml 641 ml 504 ml TPN/PPN 631 ml 580 ml 585 ml Lipid 70 ml 78 ml 78 ml Other 60 ml Output Urine Total 1000 ml 1350 ml 1480 ml Gastric Drainage Total 50 ml 50 ml 25 ml # Bowel Movements 1 . Laboratory Tests Test 10/07/16 10/08/16 05:05 12:12 White Blood Count 29.1 TH/MM3 26.1 TH/MM3 Red Blood Count 4.04 MIL/MM3 3.85 MIL/MM3 Hemoglobin 12.1 GM/DL 11.7 GM/DL Hematocrit 36.8 % 34.5 % Mean Corpuscular Volume 91.2 FL 89.6 FL Mean Corpuscular Hemoglobin 29.9 PG 30.3 PG Mean Corpuscular Hemoglobin 32.7 % 33.8 % Concent Red Cell Distribution Width 13.6 % 13.4 % Platelet Count 228 TH/MM3 222 TH/MM3 Mean Platelet Volume 9.3 FL 8.8 FL Neutrophils (%) (Auto) 93.0 % 90.8 % Lymphocytes (%) (Auto) 2.4 % 2.2 % Monocytes (%) (Auto) 4.4 % 6.3 % Eosinophils (%) (Auto) 0.0 % 0.0 % Basophils (%) (Auto) 0.2 % 0.7 % Neutrophils # (Auto) 27.0 TH/MM3 23.7 TH/MM3 Lymphocytes # (Auto) 0.7 TH/MM3 0.6 TH/MM3 Monocytes # (Auto) 1.3 TH/MM3 1.6 TH/MM3 Eosinophils # (Auto) 0.0 TH/MM3 0.0 TH/MM3 Basophils # (Auto) 0.0 TH/MM3 0.2 TH/MM3 CBC Comment AUTO DIFF AUTO DIFF Differential Total Cells 100 100 Counted Neutrophils % (Manual) 89 % 87 % Lymphocytes % 8 % 6 % Monocytes % 2 % 3 % Neutrophils # (Manual) 26.2 TH/MM3 23.8 TH/MM3 Metamyelocytes 1 % 1 % Differential Comment FINAL DIFF FINAL DIFF MANUAL MANUAL Platelet Morphology Comment NORMAL NORMAL Band Neutrophils % 2 % Myelocytes 1 % Platelet Estimate NORMAL Red Cell Morphology Comment NORMAL Laboratory Tests Test 10/07/16 10/08/16 05:05 12:12 Sodium Level 141 MEQ/L 141 MEQ/L Potassium Level 4.4 MEQ/L 4.3 MEQ/L Chloride Level 104 MEQ/L 105 MEQ/L Carbon Dioxide Level 31.9 MEQ/L 28.9 MEQ/L Anion Gap 5 MEQ/L 7 MEQ/L Blood Urea Nitrogen 28 MG/DL 31 MG/DL Creatinine 0.44 MG/DL 0.34 MG/DL Estimat Glomerular Filtration 148 ML/MIN 199 ML/MIN Rate Random Glucose 114 MG/DL 137 MG/DL Calcium Level 7.9 MG/DL 8.2 MG/DL Total Bilirubin 0.3 MG/DL 0.3 MG/DL Aspartate Amino Transf 53 U/L 62 U/L (AST/SGOT) Alanine Aminotransferase 73 U/L 116 U/L (ALT/SGPT) Alkaline Phosphatase 42 U/L 41 U/L Total Protein 5.1 GM/DL 5.1 GM/DL Albumin 2.1 GM/DL 2.1 GM/DL Microbiology Date/Time Procedure Status Source Growth 10/05/16 19:40 Aerobic Blood Culture - Preliminary Resulted Blood Peripheral NO GROWTH IN 3 DAYS 10/05/16 19:40 Anaerobic Blood Culture - Preliminary Resulted Blood Peripheral NO GROWTH IN 3 DAYS 10/05/16 19:45 Aerobic Blood Culture - Preliminary Resulted Blood Peripheral NO GROWTH IN 3 DAYS 10/05/16 19:45 Anaerobic Blood Culture - Preliminary Resulted Blood Peripheral NO GROWTH IN 3 DAYS 10/05/16 21:00 Urine Culture - Final Complete Urine Catheterized Urine NO GROWTH IN 48 HOURS. 10/07/16 18:45 Gram Stain - Final Resulted Sputum Endotracheal 10/07/16 18:45 Sputum Culture Resulted Sputum Endotracheal Pending Imaging Abdomen X-Ray 10/08/16 0000 Signed Impressions: Service Date/Time: September 08:39 - CONCLUSION: Slight improvement in gaseous distention of bowel Oliver Harman MD Chest X-Ray 10/07/16 0000 Signed Impressions: Service Date/Time: Friday, October 07, 2016 04:36 - CONCLUSION: Left lower lobe consolidation. Todd Ortega MD Abdomen X-Ray 10/06/16 0600 Signed Impressions: Service Date/Time: Thursday, October 06, 2016 03:45 - CONCLUSION: Slight decreased bowel dilatation. Todd Ortega MD Chest X-Ray 10/04/16 0000 Signed Impressions: Service Date/Time: Tuesday, October 04, 2016 09:36 - CONCLUSION: Suspected atelectasis at the right lung base. Otherwise, no acute finding is identified. Oliver Garcia MD Abdomen/Pelvis CT 10/04/16 0000 Signed Impressions: Service Date/Time: Tuesday, October 04, 2016 16:28 - CONCLUSION: 1. Severe colonic ileus which has increased slightly since October 01 with colon now measuring up to about 9.4 cm in diameter. Air is seen progressing distally into the rectosigmoid. 2. Mild anasarca. 3. Lawson catheter tip in bladder. 4. Mild right basilar airspace disease with dependent atelectasis. Jay Jay Burgess MD Physical Exam GENERAL: sedated, on the vent, not in respiratory distress. SKIN: Warm and dry. No generalized rash, no ecchymoses HEAD: Atraumatic. Normocephalic. No temporal wasting, or tenderness. EYES: Summer Set conjunctiva. No petechia or hemorrhage. Pupils equal, round and reactive to light. No scleral icterus. No injection or drainage. EARS, NOSE AND THROAT: Nose without bleeding or purulent nasal discharge. She is orally intubated. Has NG tube in place, LIWS, has bilious fluid NECK: Trachea midline. Supple and not tender, no meningeal signs CARDIOVASCULAR: Regular rate and rhythm. No murmurs, rubs or gallops heard RESPIRATORY: She has rhonchi on the right side, decreased on the left side. ABDOMEN: Globular and softer, bowel sounds are hypoactive, no reaction to deep palpation. Tympanitic on percussion EXTREMITIES: No clubbing, cyanosis. Has edema of feet. Warm. NEUROLOGICAL: Sedated PSYCHIATRIC: Unable to assess LINE: No evidence of infection : Lawson in place, urine looks clear Assessment & Plan Remarks IMPRESSION Leukocytosis, etiology to be determined - likely due to severe ileus - She has been on broad-spectrum antibiotics, cultures have been negative, chest x-ray okay, UA okay - Has been on the vent, last chest x-ray yesterday still with no consolidation seen - slowly decreasing Respiratory failure COPD Ileus, severe, has had 2 decompression - softer abdomen today - for decompression again today by GI RECOMMENDATION Continue Flagyl Continue Diflucan Follow C/S Follow CBC Monitor progress Chinyere Atkins MD Oct 08, 2016 15:29
--- NOTE | 2016-10-08 17:25 | HHI.PR ---
Subjective Remarks 56 YOWF with VDRF, sedated no Fever ON PCV, Fi02 65% Sedated with,Versed and Diprivan abd distension decreased., Objective Vital Signs Vital Signs Date Time Temp Pulse Resp B/P Pulse Ox O2 Delivery O2 Flow Rate FiO2 10/08/16 17:00 71 21 126/69 96 10/08/16 16:30 72 24 124/69 95 10/08/16 16:00 99.0 72 19 120/67 95 10/08/16 16:00 75 10/08/16 16:00 45 10/08/16 15:30 74 21 119/66 95 10/08/16 15:15 95 40 10/08/16 15:00 75 21 117/63 95 10/08/16 14:30 76 16 136/70 96 10/08/16 14:00 79 20 118/61 95 10/08/16 14:00 74 10/08/16 13:30 78 19 114/61 95 10/08/16 13:00 78 20 113/59 95 10/08/16 12:00 50 10/08/16 12:00 83 10/08/16 12:00 98.5 83 20 121/64 95 10/08/16 11:30 76 17 92/50 95 10/08/16 11:11 94 45 10/08/16 11:00 76 18 86/50 95 10/08/16 10:30 79 19 84/48 95 10/08/16 10:00 79 21 84/69 94 10/08/16 10:00 80 10/08/16 09:00 83 19 109/59 91 10/08/16 08:30 80 21 108/59 92 10/08/16 08:01 93 40 10/08/16 08:00 50 10/08/16 08:00 84 10/08/16 08:00 98.4 84 23 116/64 94 10/08/16 07:30 83 20 120/63 95 10/08/16 07:00 85 21 116/63 94 10/08/16 06:30 85 22 112/65 92 10/08/16 06:00 80 10/08/16 06:00 80 16 104/57 95 10/08/16 05:30 80 18 114/62 95 10/08/16 05:00 79 15 114/62 96 10/08/16 04:50 100 100 10/08/16 04:50 97 50 10/08/16 04:00 98.6 82 21 121/56 94 10/08/16 04:00 82 10/08/16 04:00 50 10/08/16 02:00 80 10/08/16 01:15 93 50 10/08/16 00:00 79 10/08/16 00:00 50 10/08/16 00:00 98.7 79 21 113/56 91 10/07/16 22:29 95 50 10/07/16 22:00 80 10/07/16 20:00 50 10/07/16 20:00 76 10/07/16 20:00 98.4 76 16 126/68 97 10/07/16 19:52 95 50 10/07/16 18:00 79 I/O 10/07/16 10/07/16 10/07/16 10/08/16 10/08/16 10/08/16 07:00 15:00 23:00 07:00 15:00 23:00 Intake Total 911 ml 1188 ml 1359 ml 1167 ml 1231 ml Output Total 2050 ml 1050 ml 1400 ml 1505 ml 1650 ml Balance -1139 ml 138 ml -41 ml -338 ml -419 ml IV Total 355 ml 487 ml 641 ml 504 ml 517 ml TPN/PPN 487 ml 631 ml 580 ml 585 ml 630 ml Lipid 69 ml 70 ml 78 ml 78 ml 84 ml Other 60 ml Output Urine Total 1950 ml 1000 ml 1350 ml 1480 ml 1450 ml Gastric Drainage Total 100 ml 50 ml 50 ml 25 ml 200 ml # Bowel Movements 1 1 2 Result Diagram: 10/08/16 1212 10/08/16 1212 Objective Remarks GENERAL: MBMN WF, on Vent SKIN: Warm and dry. HEAD: Normocephalic. EYES: No scleral icterus. No injection or drainage. NECK: Supple, trachea midline. No JVD or lymphadenopathy. CARDIOVASCULAR: Regular rate and rhythm without murmurs, gallops, or rubs. RESPIRATORY: Breath sounds equal bilaterally. No accessory muscle use. GASTROINTESTINAL: Abdomen soft, non-tender, nondistended. MUSCULOSKELETAL: No cyanosis, or edema. BACK: Nontender without obvious deformity. No CVA tenderness. A/P Assessment and Plan VDRF COPD Exac HTN Nicotine use PLAN sedation with Fentanyl, and Diprivan Aerosol nebs cont Steroids Cont Vent support Wean Fi02 Abx per ID Abdirahman Marquez MD Oct 08, 2016 17:25
--- NOTE | 2016-10-08 17:37 | HHI.GIFU ---
Subjective Remarks Pt intubated on vent. Per RN frequent liquid stool, every q4 when pt is turned to do decompressive rectal exam. Rust colored drainage from NGT 200cc today. Objective Vitals I&O Vital Signs Date Time Temp Pulse Resp B/P Pulse Ox O2 Delivery O2 Flow Rate FiO2 10/08/16 17:00 71 21 126/69 96 10/08/16 16:30 72 24 124/69 95 10/08/16 16:00 99.0 72 19 120/67 95 10/08/16 16:00 75 10/08/16 16:00 45 10/08/16 15:30 74 21 119/66 95 10/08/16 15:15 95 40 10/08/16 15:00 75 21 117/63 95 10/08/16 14:30 76 16 136/70 96 10/08/16 14:00 79 20 118/61 95 10/08/16 14:00 74 10/08/16 13:30 78 19 114/61 95 10/08/16 13:00 78 20 113/59 95 10/08/16 12:00 50 10/08/16 12:00 83 10/08/16 12:00 98.5 83 20 121/64 95 10/08/16 11:30 76 17 92/50 95 10/08/16 11:11 94 45 10/08/16 11:00 76 18 86/50 95 10/08/16 10:30 79 19 84/48 95 10/08/16 10:00 79 21 84/69 94 10/08/16 10:00 80 10/08/16 09:00 83 19 109/59 91 10/08/16 08:30 80 21 108/59 92 10/08/16 08:01 93 40 10/08/16 08:00 50 10/08/16 08:00 84 10/08/16 08:00 98.4 84 23 116/64 94 10/08/16 07:30 83 20 120/63 95 10/08/16 07:00 85 21 116/63 94 10/08/16 06:30 85 22 112/65 92 10/08/16 06:00 80 10/08/16 06:00 80 16 104/57 95 10/08/16 05:30 80 18 114/62 95 10/08/16 05:00 79 15 114/62 96 8/10/17 04:50 100 100 10/08/16 04:50 97 50 10/08/16 04:00 98.6 82 21 121/56 94 10/08/16 04:00 82 10/08/16 04:00 50 10/08/16 02:00 80 10/08/16 01:15 93 50 10/08/16 00:00 79 10/08/16 00:00 50 10/08/16 00:00 98.7 79 21 113/56 91 10/07/16 22:29 95 50 10/07/16 22:00 80 10/07/16 20:00 50 10/07/16 20:00 76 10/07/16 20:00 98.4 76 16 126/68 97 10/07/16 19:52 95 50 10/07/16 18:00 79 I/O 10/07/16 10/07/16 10/07/16 10/08/16 10/08/16 10/08/16 07:00 15:00 23:00 07:00 15:00 23:00 Intake Total 911 ml 1188 ml 1359 ml 1167 ml 1231 ml Output Total 2050 ml 1050 ml 1400 ml 1505 ml 1650 ml Balance -1139 ml 138 ml -41 ml -338 ml -419 ml IV Total 355 ml 487 ml 641 ml 504 ml 517 ml TPN/PPN 487 ml 631 ml 580 ml 585 ml 630 ml Lipid 69 ml 70 ml 78 ml 78 ml 84 ml Other 60 ml Output Urine Total 1950 ml 1000 ml 1350 ml 1480 ml 1450 ml Gastric Drainage Total 100 ml 50 ml 50 ml 25 ml 200 ml # Bowel Movements 1 1 2 Laboratory Laboratory Tests Test 10/08/16 12:12 White Blood Count 26.1 Red Blood Count 3.85 Hemoglobin 11.7 Hematocrit 34.5 Mean Corpuscular Volume 89.6 Mean Corpuscular Hemoglobin 30.3 Mean Corpuscular Hemoglobin 33.8 Concent Red Cell Distribution Width 13.4 Platelet Count 222 Mean Platelet Volume 8.8 Neutrophils (%) (Auto) 90.8 Lymphocytes (%) (Auto) 2.2 Monocytes (%) (Auto) 6.3 Eosinophils (%) (Auto) 0.0 Basophils (%) (Auto) 0.7 Neutrophils # (Auto) 23.7 Lymphocytes # (Auto) 0.6 Monocytes # (Auto) 1.6 Eosinophils # (Auto) 0.0 Basophils # (Auto) 0.2 CBC Comment AUTO DIFF Differential Total Cells 100 Counted Neutrophils % (Manual) 87 Band Neutrophils % 2 Lymphocytes % 6 Monocytes % 3 Neutrophils # (Manual) 23.8 Metamyelocytes 1 Myelocytes 1 Differential Comment FINAL DIFF MANUAL Platelet Estimate NORMAL Platelet Morphology Comment NORMAL Red Cell Morphology Comment NORMAL Sodium Level 141 Potassium Level 4.3 Chloride Level 105 Carbon Dioxide Level 28.9 Anion Gap 7 Blood Urea Nitrogen 31 Creatinine 0.34 Estimat Glomerular Filtration 199 Rate Random Glucose 137 Calcium Level 8.2 Total Bilirubin 0.3 Aspartate Amino Transf 62 (AST/SGOT) Alanine Aminotransferase 116 (ALT/SGPT) Alkaline Phosphatase 41 Total Protein 5.1 Albumin 2.1 Date/Time Procedure Status Source Growth 10/07/16 18:45 Gram Stain - Final Resulted Sputum Endotracheal 10/07/16 18:45 Sputum Culture Resulted Sputum Endotracheal Pending 10/05/16 21:00 Urine Culture - Final Complete Urine Catheterized Urine NO GROWTH IN 48 HOURS. 10/05/16 19:45 Aerobic Blood Culture - Preliminary Resulted Blood Peripheral NO GROWTH IN 3 DAYS 10/05/16 19:45 Anaerobic Blood Culture - Preliminary Resulted Blood Peripheral NO GROWTH IN 3 DAYS Imaging Last Impressions Abdomen X-Ray 10/08/16 0000 Signed Impressions: Service Date/Time: September 08:39 - CONCLUSION: Slight improvement in gaseous distention of bowel Oliver Harman MD Chest X-Ray 10/07/16 0000 Signed Impressions: Service Date/Time: Friday, October 07, 2016 04:36 - CONCLUSION: Left lower lobe consolidation. Todd Ortega MD Abdomen/Pelvis CT 10/04/16 0000 Signed Impressions: Service Date/Time: Tuesday, October 04, 2016 16:28 - CONCLUSION: 1. Severe colonic ileus which has increased slightly since October 01 with colon now measuring up to about 9.4 cm in diameter. Air is seen progressing distally into the rectosigmoid. 2. Mild anasarca. 3. Lawson catheter tip in bladder. 4. Mild right basilar airspace disease with dependent atelectasis. Jay Jay Burgess MD Physical Exam HEENT: Normocephalic; atraumatic; no jaundice. CHEST: OETT to vent. CARDIAC: RRR ABDOMEN: semiFirm, tympanic, distended. Hypoactive bowel sounds. rust colored drainage from NGT EXTREMITIES: Generalized edema, more in upper extremities, trace edema ble. 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 Assessment and Plan Plan ASSESSMENT - Severe colonic ileus/constipation. s/p Rectal exam by CRS with subsequent liquid stool and gas emission S/P Decompressive colonoscopy (10/01/16)--1. Poor prep colonic decompression- marked improvement 2. Retroflexed views revealed internal hemorrhoids 3. Retroflexed views revealed small internal hemorrhoids 4. Revealed internal hemorrhoids. S/P Decompressive colonoscopy (10/03/16)--> 1. Poor prep ulcer rectum 2. Retroflexed views revealed internal hemorrhoid 3. Retroflexed views revealed small internal hemorrhoids 4. Revealed external hemorrhoids 5. Revealed internal hemorrhoid. Abdomen/ Pelvis CT (10/04/16)-----> 1. Severe colonic ileus which has increased slightly since October 01 with colon now measuring up to about 9.4 cm in diameter. Air is seen progressing distally into the rectosigmoid. 2. Mild anasarca. 3. Lawson catheter tip in bladder. 4. Mild right basilar airspace disease with dependent atelectasis. Abdomen X-Ray (10/05/16)----> Persistent abnormal dilatation of bowel. S/P Enemas, S/P Neostigmine (10/04). On bowel regimen- Reglan, lactulose, senna, colace, relistor. Pt remains distended, with tympanic abdomen. having mult liquid BM CRS has signed off. - Acute hypercarbic resp failure, acute COPD exacerbation, bronchospasm, vent per [facility] - Leukocytosis. worsening. BCx no growth 5 days, Urine cx no growth 48 hours- Zosyn, Flagyl, Levaquin. - HTN per attending. [place] on 10/07 OK. No infection or ischemia. Air aspirated. Plan: - consider insertion rectal tube - Miralax one dose daily -- NPO - TPN - Cont. Reglan - Cont. Lactulose - Cont. Senna - Cont. Colace - Supportive care This pt seen by myself and Dr Buckley and this note written on his behalf Korina Foley Oct 08, 2016 17:37
[2016-10-08] MEDS: FAT EMULSION 20% INJ 250 ML (@10 mls/hr) IV SCH (20:10)
[2016-10-08] MEDS: CLINIMIX E 4.25/5 2000 mL- >42 mls/hr IV SCH ×3 (20:11)
[2016-10-08] MEDS: RESP: ALBUTEROL 2.5 MG/IPRATROPIUM 0.5 MG NEB (PRN) NEB (20:22)
[2016-10-09] VITALS (16 sets, daily range): BP systolic 129–169; BP diastolic 66–89; PULSE 69–84; RESP 11–22; TEMP 97.3–99.3; O2SAT 93–97
[2016-10-09] MEDS: RESP: ALBUTEROL 2.5 MG/IPRATROPIUM 0.5 MG NEB (PRN) NEB ×3 (00:36→20:41)
[2016-10-09] MEDS: CEFEPIME INJ 2,000 MG in SODIUM CHLORIDE 0.9% INJ 100 ML IV SCH ×2 (01:53→20:00)
[2016-10-09] MEDS: DILTIAZEM HCL 60 MG TAB PO SCH ×4 (01:54→20:03)
[2016-10-09] MEDS: metroNIDAZOLE 500 MG INJ 100 ML IV SCH ×3 (01:54→17:03)
[2016-10-09] MEDS: methylPREDNISolone SOD SUCC 125 MG/2 ML VIAL IV SCH ×3 (04:00→20:02)
[2016-10-09] MEDS: METOCLOPRAMIDE HCL 10 MG/2 ML VIAL IV PUSH SCH ×3 (05:35→20:20)
[2016-10-09] MEDS: INSULIN NovoLIN REGULAR SUPPLEMENTAL SCALE SQ SCH ×4 (05:36→17:03)
[2016-10-09] MEDS: PROPOFOL 1000 MG/100 ML INJ 100 ML IV SCH ×4 (05:54→20:20)
[2016-10-09] MEDS: RESP: BUDESONIDE 0.5 MG/2 ML NEB NEB SCH ×2 (07:51→20:41)
[2016-10-09] MEDS: CHLORHEXIDINE 0.12% (ORAL KIT) 15 ML CUP MT SCH ×4 (08:00→20:00)
[2016-10-09] MEDS: PANTOPRAZOLE SODIUM 40 MG VIAL IV PUSH SCH (08:14)
[2016-10-09] MEDS: BISACODYL 10 MG SUPP RECTAL SCH (08:15)
[2016-10-09] MEDS: DOCUSATE SODIUM 100 MG/10 ML UDC PO SCH ×2 (08:15→20:03)
[2016-10-09] MEDS: POLYETHYLENE GLYCOL 17 GM PKG PEG SCH (08:16)
[2016-10-09 08:27] LABS: BASOPHIL # 0.2 TH/MM3 (0-0.2); BASOPHIL % 0.8 % (0.0-2.0); HEMATOCRIT 37.1 % (35.0-46.0); LYMPH % 1.9 % (9.0-44.0); LYMPHOCYTE # 0.5 TH/MM3 (1.0-4.8); MEAN CELL VOLUME 91.2 FL (80.0-100.0); MEAN CORPUSCULAR HEMOGLOBIN 29.6 PG (27.0-34.0); MEAN CORPUSCULAR HGB CONC 32.4 % (32.0-36.0); MONO % 5.1 % (0.0-8.0); NEUT % 92.2 % (16.0-70.0); PLATELET COUNT 238 TH/MM3 (150-450); RED BLOOD COUNT 4.06 MIL/MM3 (4.00-5.30); RED CELL DISTRIBUTION WIDTH 13.4 % (11.6-17.2)
[2016-10-09 08:39] LABS: HEMO FLAGS AUTO DIFF
[2016-10-09 08:45] LABS: ALKALINE PHOSPHATASE 43 U/L (45-117); ALT (GPT) 144 U/L (10-53); ANION GAP 8 MEQ/L (5-15); AST (GOT) 76 U/L (15-37); BICARBONATE 28.6 MEQ/L (21.0-32.0); BLOOD UREA NITROGEN 31 MG/DL (7-18); CHLORIDE 106 MEQ/L (98-107); GLOMERULAR FILTRATION RATE 160 ML/MIN (>89); POTASSIUM 4.5 MEQ/L (3.5-5.1); SODIUM (NA) 143 MEQ/L (136-145); TOTAL BILIRUBIN ADULT 0.4 MG/DL (0.2-1.0)
--- NOTE | 2016-10-09 08:49 | HHI.CCPN ---
Subjective Remarks/Hospital Course The patient is a 56-year-old female with past medical history of COPD and hypertension who presented to the [facility] ED with a 2-week history of progressive shortness of breath. In addition, she reports a dry cough and wheezing. The patient denies any constitutional symptoms. In addition she denies any nausea, vomiting, or abdominal pain. No history of orthopnea, PND or edema of lower extremities. She denies any use of oxygen at home; however, she uses nebulizers and is on Symbicort. In the ED the patient was given IV steroids and bronchodilator treatments. She was in the ER last night with the same presentation and after several hours of treatments she was discharged with a prescription for a tapered dose of prednisone. In addition, she was given a new albuterol inhaler. She came back a few hours later in respiratory distress. A chest x-ray from last night showed no acute disease. No laboratory data or blood gases available today; however, ABG from last night on a BiPAP 02/03 with 35% FIO2 showed a pH of 7.37, CO2 40, pAO2 of 105, bicarb 23 and saturation of 96%. 09/26 Patient was intubated yesterday for resp distress sedated with Versed 5mg and low doses Fentanyl and Diprivan. Afebrile. Given 1L NS last night for hypotension 09/27 Patient is sedated with Fentanyl and intubated. Afebrile. Patient was initially placed on PC/AC last night however his ABG showed acute resp acidosis with PH: 7.26,COP2 52 he was placed back on PRVC/AC mode. 09/28 Patient remains sedated with Fentanyl and versed placed on Nimbex overnight. Afebrile. WBC is trending down. 09/29 No events overnight. Sedated and intubated. Hypertensive. 09/30 Patient remains intubated and sedated. Off Nimbex. Afebrile. 10/01: Patient has significant bilateral wheezing. Abdominal distention increasing. No bowel movement since admission. KUB pending. Reduced RR to 14 to avoid air trapping 10/02 No events overnight, sedated with Fentanyl and Versed. Afebrile. s/p colonoscopy yesterday for colonic decompression, rectal tube to suction 10/03: . Plan for decompressive colonoscopy today due to 10.5 cm cecum. Patient is arousable and follows commands. FiO2 35%. Saturations 99%. No bowel movement. Subjective 10/04: Status post expressive colonoscopy yesterday. X-ray revealed 11.7 cm dilated: Today. Bladder pressures around 9-11. This a.m., asynchronous with the ventilator so paralyzed with rocuronium currently on a Nimbex drip. 10/05 Patient remains sedated and intubated in addition he is on Nimbex. Afebrile. 10/06 Patient remains intubated and sedated with Versed and Diprivan , on Nimbex. Afebrile. 10/07: Remains intubated, sedated. Abdomen remains distended. GI planning on decompressive colonoscopy today. Overnight had bowel movement. FiO2 remains high at 60%. Chest x-ray shows left lower lobe consolidation. Start cefepime 2 g IV every 8 hours 10/08 Patient is sedated with Versed and Diprivan. s/p colonoscopy yesterday for colonic decompression. On PRVC with PEEP:8 and 50% FIO2. 10/09 No events overnight. sedated with Diprivan and versed. Afebrile. On PRVC with PEEP: 8, FIO2 45%. Objective Vital Signs Date Time Temp Pulse Resp B/P Pulse Ox O2 Delivery O2 Flow Rate FiO2 10/09/16 07:56 93 40 10/09/16 06:00 79 10/09/16 04:00 97.3 21 137/74 Intake and Output 10/08/16 10/08/16 10/08/16 07:59 15:59 23:59 Intake Total 1167 ml 1231 ml 1293 ml Output Total 1505 ml 1650 ml 2150 ml Balance -338 ml -419 ml -857 ml Result Diagram: 10/09/16 0545 10/08/16 1212 Other Results Laboratory Tests Test 10/08/16 10/09/16 12:12 05:45 White Blood Count 26.1 TH/MM3 26.0 TH/MM3 Red Blood Count 3.85 MIL/MM3 4.06 MIL/MM3 Hemoglobin 11.7 GM/DL 12.0 GM/DL Hematocrit 34.5 % 37.1 % Mean Corpuscular Volume 89.6 FL 91.2 FL Mean Corpuscular Hemoglobin 30.3 PG 29.6 PG Mean Corpuscular Hemoglobin 33.8 % 32.4 % Concent Red Cell Distribution Width 13.4 % 13.4 % Platelet Count 222 TH/MM3 238 TH/MM3 Mean Platelet Volume 8.8 FL 8.7 FL Neutrophils (%) (Auto) 90.8 % 92.2 % Lymphocytes (%) (Auto) 2.2 % 1.9 % Monocytes (%) (Auto) 6.3 % 5.1 % Eosinophils (%) (Auto) 0.0 % 0.0 % Basophils (%) (Auto) 0.7 % 0.8 % Neutrophils # (Auto) 23.7 TH/MM3 24.0 TH/MM3 Lymphocytes # (Auto) 0.6 TH/MM3 0.5 TH/MM3 Monocytes # (Auto) 1.6 TH/MM3 1.3 TH/MM3 Eosinophils # (Auto) 0.0 TH/MM3 0.0 TH/MM3 Basophils # (Auto) 0.2 TH/MM3 0.2 TH/MM3 CBC Comment AUTO DIFF AUTO DIFF Differential Total Cells 100 Counted Neutrophils % (Manual) 87 % Band Neutrophils % 2 % Lymphocytes % 6 % Monocytes % 3 % Neutrophils # (Manual) 23.8 TH/MM3 Metamyelocytes 1 % Myelocytes 1 % Differential Comment FINAL DIFF MANUAL Platelet Estimate NORMAL Platelet Morphology Comment NORMAL Red Cell Morphology Comment NORMAL Sodium Level 141 MEQ/L Potassium Level 4.3 MEQ/L Chloride Level 105 MEQ/L Carbon Dioxide Level 28.9 MEQ/L Anion Gap 7 MEQ/L Blood Urea Nitrogen 31 MG/DL Creatinine 0.34 MG/DL Estimat Glomerular Filtration 199 ML/MIN Rate Random Glucose 137 MG/DL Calcium Level 8.2 MG/DL Total Bilirubin 0.3 MG/DL Aspartate Amino Transf 62 U/L (AST/SGOT) Alanine Aminotransferase 116 U/L (ALT/SGPT) Alkaline Phosphatase 41 U/L Total Protein 5.1 GM/DL Albumin 2.1 GM/DL Imaging Last Impressions Abdomen X-Ray 10/08/16 0000 Signed Impressions: Service Date/Time: September 08:39 - CONCLUSION: Slight improvement in gaseous distention of bowel Oliver Harman MD Chest X-Ray 10/07/16 0000 Signed Impressions: Service Date/Time: Friday, October 07, 2016 04:36 - CONCLUSION: Left lower lobe consolidation. Todd Ortega MD Abdomen/Pelvis CT 10/04/16 0000 Signed Impressions: Service Date/Time: Tuesday, October 04, 2016 16:28 - CONCLUSION: 1. Severe colonic ileus which has increased slightly since October 01 with colon now measuring up to about 9.4 cm in diameter. Air is seen progressing distally into the rectosigmoid. 2. Mild anasarca. 3. Lawson catheter tip in bladder. 4. Mild right basilar airspace disease with dependent atelectasis. Jay Jay Burgess MD Objective Remarks GENERAL: 56 yo female, critically ill currently intubated and heavily sedated SKIN: Warm and dry. No rash. HEAD: Normocephalic. EYES: No scleral icterus. No injection or drainage. NECK: Supple, trachea midline. No JVD or lymphadenopathy. CARDIOVASCULAR: Regular rate and rhythm without murmurs, gallops, or rubs. RESPIRATORY: Breath sounds equal bilaterally. Coarse BS, diffuse wheezing. FiO2 60% GASTROINTESTINAL: Abdomen distended. Tense. No bowel sounds appreciated. MUSCULOSKELETAL: No significant peripheral edema. Neuro: Intubated heavily sedated, limits neuro exam A/P Assessment and Plan Acute hypercarbic respiratory failure Acute COPD exacerbation. Colonic ileus LLL infiltrate/Probable HCAP Bronchospasm Leukocytosis History of tobacco abuse. Hypertension. Internal hemorrhoids Plan Neuro: On Diprivan and Versed infusions for sedation and vent synchrony. Daily sedation vacation. Pulm:Continue with vent support and maintain sats > 90%. On PRVC RR 14, TV 550, PEEP:8, FIO2 45%, decrease 40% Bronchodilators, Pulmicort nebulizers q. 12, Spiriva one cap daily. Solu-Medrol 40mg Q8, ICU vent bundle. if no improvements in weaning trials will need trach next week, Pulm is following- Dr. Marquez, check CXR CV: On Cardizem 60mg QID, Monitor HR and BP keep MAP>65mmHg. : Monitor renal function, I/O's and electrolyte replacement as needed. GI: On Protonix 40 mg IV daily. s/p colonoscopy 10/07 for colonic decompression. KUB abdomen 10: Slight distention in gaseous distention of bowel KUB 8/8: Slight decreased bowel dilation. s/p rectal exam for decompression by Dr. Yo yesterday KUB 10/05- persistent abnormal dilation of bowel- on metoclopramide 10 mg IV every 8 hours. s/p colonoscopy 10/01 and 10/03 for colonic decompression -showed internal and external hemorrhoids. Currently on PPN at 75 cc an hour with lipids daily Continue aggressive bowel regimen with docusate sodium, Senokot, polyethylene glycol and lactulose ,Relistor daily GI and CRS following ID: On Flagyl, Diflucan, Cefepime . Monitor for signs of infections ( Fever, WBC) C-diff PCR-neg Follow up on sputum culture from 10/07 - no growth 10/05 Blood, Urine cx: NGTD 09/27 BC: NGTD 09/26, Sputum cx: normal growth, Urine : NGTD Endo: SSI with accuchecks. Heme: Monitor CBC. GI prophylaxis with Protonix 40 mg daily and DVT prophylaxis with SCDs and Lovenox 40 mg subcu daily. Follow up on labs CCT 30 MIN Carmita Oconnell MD Oct 09, 2016 08:49
--- NOTE | 2016-10-09 08:51 | HHI.IDPN ---
Subjective Subjective Remarks Patient is a 56-year-old female, with known COPD, presented to the hospital complaining of severe and worsening shortness of breath, cough. There was no fever or chills nausea or vomiting, abdominal pain, or any other GI complaints. Her initial chest x-ray was normal. She was admitted for COPD exacerbation, and on her first hospital day her shortness of breath got progressively worse so she ended up getting intubated. Patient has been on the vent since. Her cultures have been negative. She was laced on steroids. She started having problem with significant ileus, and patient has had 2 decompressive colonoscopies done. No abnormalities seen during her colonoscopy , no obstruction, no mass, no pseudomembrane. Since September for her white count started increasing. Patient has been on Zosyn, and Flagyl. Her WBC continues to increase. There is no record of any diarrhea. She has not been febrile. Notes reviewed Temps ok Sedated on the vent BP ok Good UO WBC same at 26 CXR with L base opacity Sputum C/S still pending Not a lot of secretions C diff negative On PPN and lipids No central line Antibiotics Flagyl Diflucan Lines PIV Past Medical History COPD Hypertension Past Surgical History Tubal ligation Allergies: Coded Allergies: No Known Allergies (Unverified , 09/24/16) Objective . Vital Signs Date Time Temp Pulse Resp B/P Pulse Ox O2 Delivery O2 Flow Rate FiO2 10/09/16 07:56 93 40 10/09/16 06:00 79 10/09/16 04:00 45 10/09/16 04:00 97.3 80 21 137/74 95 10/09/16 04:00 80 10/09/16 03:57 95 45 10/09/16 02:00 69 10/09/16 01:27 94 45 10/09/16 00:00 75 10/09/16 00:00 45 10/09/16 00:00 99.3 75 19 132/73 96 10/08/16 22:46 97 45 10/08/16 22:00 79 10/08/16 20:15 96 45 10/08/16 20:00 98.5 10/08/16 20:00 45 10/08/16 20:00 83 10/08/16 20:00 98.5 83 21 121/68 95 10/08/16 18:00 70 10/08/16 17:00 71 21 126/69 96 10/08/16 16:30 72 24 124/69 95 10/08/16 16:00 99.0 72 19 120/67 95 10/08/16 16:00 75 10/08/16 16:00 45 10/08/16 15:30 74 21 119/66 95 10/08/16 15:15 95 40 10/08/16 15:00 75 21 117/63 95 10/08/16 14:30 76 16 136/70 96 10/08/16 14:00 79 20 118/61 95 10/08/16 14:00 74 10/08/16 13:30 78 19 114/61 95 10/08/16 13:00 78 20 113/59 95 10/08/16 12:00 50 10/08/16 12:00 83 10/08/16 12:00 98.5 83 20 121/64 95 10/08/16 11:30 76 17 92/50 95 10/08/16 11:11 94 45 10/08/16 11:00 76 18 86/50 95 10/08/16 10:30 79 19 84/48 95 10/08/16 10:00 79 21 84/69 94 10/08/16 10:00 80 10/08/16 09:00 83 19 109/59 91 10/08/16 10/08/16 10/09/16 14:59 22:59 06:59 Intake Total 1231 ml 1293 ml 1268 ml Output Total 1650 ml 2150 ml 2300 ml Balance -419 ml -857 ml -1032 ml IV Total 517 ml 618 ml 472 ml TPN/PPN 630 ml 604 ml 712 ml Lipid 84 ml 71 ml 84 ml Output Urine Total 1450 ml 2000 ml 2200 ml Gastric Drainage Total 200 ml 150 ml 100 ml # Bowel Movements 2 1 1 . Laboratory Tests Test 10/08/16 10/09/16 12:12 05:45 White Blood Count 26.1 TH/MM3 26.0 TH/MM3 Red Blood Count 3.85 MIL/MM3 4.06 MIL/MM3 Hemoglobin 11.7 GM/DL 12.0 GM/DL Hematocrit 34.5 % 37.1 % Mean Corpuscular Volume 89.6 FL 91.2 FL Mean Corpuscular Hemoglobin 30.3 PG 29.6 PG Mean Corpuscular Hemoglobin 33.8 % 32.4 % Concent Red Cell Distribution Width 13.4 % 13.4 % Platelet Count 222 TH/MM3 238 TH/MM3 Mean Platelet Volume 8.8 FL 8.7 FL Neutrophils (%) (Auto) 90.8 % 92.2 % Lymphocytes (%) (Auto) 2.2 % 1.9 % Monocytes (%) (Auto) 6.3 % 5.1 % Eosinophils (%) (Auto) 0.0 % 0.0 % Basophils (%) (Auto) 0.7 % 0.8 % Neutrophils # (Auto) 23.7 TH/MM3 24.0 TH/MM3 Lymphocytes # (Auto) 0.6 TH/MM3 0.5 TH/MM3 Monocytes # (Auto) 1.6 TH/MM3 1.3 TH/MM3 Eosinophils # (Auto) 0.0 TH/MM3 0.0 TH/MM3 Basophils # (Auto) 0.2 TH/MM3 0.2 TH/MM3 CBC Comment AUTO DIFF AUTO DIFF Differential Total Cells 100 Counted Neutrophils % (Manual) 87 % Band Neutrophils % 2 % Lymphocytes % 6 % Monocytes % 3 % Neutrophils # (Manual) 23.8 TH/MM3 Metamyelocytes 1 % Myelocytes 1 % Differential Comment FINAL DIFF MANUAL Platelet Estimate NORMAL Platelet Morphology Comment NORMAL Red Cell Morphology Comment NORMAL Laboratory Tests Test 10/08/16 12:12 Sodium Level 141 MEQ/L Potassium Level 4.3 MEQ/L Chloride Level 105 MEQ/L Carbon Dioxide Level 28.9 MEQ/L Anion Gap 7 MEQ/L Blood Urea Nitrogen 31 MG/DL Creatinine 0.34 MG/DL Estimat Glomerular Filtration 199 ML/MIN Rate Random Glucose 137 MG/DL Calcium Level 8.2 MG/DL Total Bilirubin 0.3 MG/DL Aspartate Amino Transf 62 U/L (AST/SGOT) Alanine Aminotransferase 116 U/L (ALT/SGPT) Alkaline Phosphatase 41 U/L Total Protein 5.1 GM/DL Albumin 2.1 GM/DL Microbiology Date/Time Procedure Status Source Growth 10/07/16 18:45 Gram Stain - Final Resulted Sputum Endotracheal 10/07/16 18:45 Sputum Culture Resulted Sputum Endotracheal Pending Imaging Abdomen X-Ray 10/08/16 0000 Signed Impressions: Service Date/Time: September 08:39 - CONCLUSION: Slight improvement in gaseous distention of bowel Oliver Harman MD Chest X-Ray 10/07/16 0000 Signed Impressions: Service Date/Time: Friday, October 07, 2016 04:36 - CONCLUSION: Left lower lobe consolidation. Todd Ortega MD Abdomen X-Ray 10/06/16 0600 Signed Impressions: Service Date/Time: Thursday, October 06, 2016 03:45 - CONCLUSION: Slight decreased bowel dilatation. Todd Ortega MD Chest X-Ray 10/04/16 0000 Signed Impressions: Service Date/Time: Tuesday, October 04, 2016 09:36 - CONCLUSION: Suspected atelectasis at the right lung base. Otherwise, no acute finding is identified. Olivre Garcia MD Abdomen/Pelvis CT 10/04/16 0000 Signed Impressions: Service Date/Time: Tuesday, October 04, 2016 16:28 - CONCLUSION: 1. Severe colonic ileus which has increased slightly since October 01 with colon now measuring up to about 9.4 cm in diameter. Air is seen progressing distally into the rectosigmoid. 2. Mild anasarca. 3. Lawson catheter tip in bladder. 4. Mild right basilar airspace disease with dependent atelectasis. Jay Jay Burgess MD Physical Exam GENERAL: sedated, on the vent, not in respiratory distress. SKIN: Warm and dry. No generalized rash, no ecchymoses HEAD: Atraumatic. Normocephalic. No temporal wasting, or tenderness. EYES: [place] conjunctiva. No petechia or hemorrhage. Pupils equal, round and reactive to light. No scleral icterus. No injection or drainage. EARS, NOSE AND THROAT: Nose without bleeding or purulent nasal discharge. She is orally intubated. Has NG tube in place, LIWS, has some coffee ground fluid in tubing NECK: Trachea midline. Supple and not tender, no meningeal signs CARDIOVASCULAR: Regular rate and rhythm. No murmurs, rubs or gallops heard RESPIRATORY: She has rhonchi on the right side, decreased on the left side. ABDOMEN: Globular and softer, bowel sounds are hypoactive, no reaction to deep palpation. Tympanitic on percussion EXTREMITIES: No clubbing, cyanosis. Has edema of feet. Warm. NEUROLOGICAL: Sedated PSYCHIATRIC: Unable to assess LINE: No evidence of infection : Lawson in place, urine looks clear Assessment & Plan Remarks IMPRESSION Leukocytosis, etiology to be determined - likely due to severe ileus - She has been on broad-spectrum antibiotics, cultures have been negative, chest x-ray okay, UA okay - Has been on the vent, last chest x-ray yesterday still with no consolidation seen - persistent Respiratory failure, has L base opacity, ?PNA COPD Ileus, severe, has had 2 decompression - softer abdomen today - for decompression again today by GI RECOMMENDATION Continue Flagyl Continue Diflucan Add Cefepime Follow C/S and have CCM follow results and call ID division controller iff with any question Follow CBC Monitor progress Weaning per CCM D/W RN Dr Lorenzana covering this weekend if needed Chinyere Atkins MD Oct 09, 2016 08:51
[2016-10-09] MEDS: TIOTROPIUM BROMIDE 18 MCG INH INH SCH (09:00)
[2016-10-09] MEDS: SODIUM CHLORIDE 0.9% FLUSH 10 ML FLUSH IV FLUSH SCH ×2 (09:31→20:04)
--- NOTE | 2016-10-09 09:31 | RADRPT ---
EXAM DATE/TIME: 10/09/2016 08:36 [place] COMPARISON: CHEST SINGLE AP, October 07, 2016, 4:36. INDICATIONS : Ventilator dependent respiratory failure. MEDICAL HISTORY : None. SURGICAL HISTORY : None. ENCOUNTER: Subsequent ACUITY: 2 weeks PAIN SCORE: Non-responsive. LOCATION: chest FINDINGS: Portable AP view of the chest demonstrates a normal-sized cardiac silhouette. An endotracheal tube ti p measures 2.5 cm from the joel and nasogastric tube courses beyond the GE junction. Multiple tubes and lines overlie the patient. There is a stable small left basilar pleural-parenchymal opacity. No pneumothorax is visualized. CONCLUSION: Stable chest x-ray with left basilar opacity likely representing pleural effusion with associated air space consolidation and/or volume loss. Oliver Garcia MD on October 09, 2016 at 9:28 Board Certified Radiologist. This report was verified electronically.
[2016-10-09 09:34] LABS: BANDS 1 % (0-6); METAMYELOCYTES 1 % (0-1); MYELOCYTES 2 % (0-0); NEUTROPHIL # MANUAL DIFF 24.7 TH/MM3 (1.8-7.7); POLYS (SEG NEUTROPHILS) 90 % (16-70); PROMYELOCYTES 1 % (0-0); SCAN/DIFF FINAL DIFF MANUAL; WBC DIFF SAMPLE 100
[2016-10-09 09:35] LABS: PLATELET ESTIMATE SMEAR NORMAL (NORMAL); PLATELET MORPHOLOGY NORMAL (NORMAL); TOXIC VACUOLATION PRESENT (NONE SEEN)
--- NOTE | 2016-10-09 11:50 | HHI.PR ---
Subjective Remarks 56 YOWF with VDRF, sedated no Fever Sedated with,Diprivan abd distension decreased., On CPAP Awake, does't follow commands BF Nicola at BS Objective Vital Signs Vital Signs Date Time Temp Pulse Resp B/P Pulse Ox O2 Delivery O2 Flow Rate FiO2 10/09/16 11:33 40 10/09/16 11:15 97 40 10/09/16 08:00 98.4 70 18 129/66 93 10/09/16 08:00 40 10/09/16 07:56 93 40 10/09/16 06:00 79 10/09/16 04:00 45 10/09/16 04:00 97.3 80 21 137/74 95 10/09/16 04:00 80 10/09/16 03:57 95 45 10/09/16 02:00 69 10/09/16 01:27 94 45 10/09/16 00:00 75 10/09/16 00:00 45 10/09/16 00:00 99.3 75 19 132/73 96 10/08/16 22:46 97 45 10/08/16 22:00 79 10/08/16 20:15 96 45 10/08/16 20:00 98.5 10/08/16 20:00 45 10/08/16 20:00 83 10/08/16 20:00 98.5 83 21 121/68 95 10/08/16 18:00 70 10/08/16 17:00 71 21 126/69 96 10/08/16 16:30 72 24 124/69 95 10/08/16 16:00 99.0 72 19 120/67 95 10/08/16 16:00 75 10/08/16 16:00 45 10/08/16 15:30 74 21 119/66 95 10/08/16 15:15 95 40 10/08/16 15:00 75 21 117/63 95 10/08/16 14:30 76 16 136/70 96 10/08/16 14:00 79 20 118/61 95 10/08/16 14:00 74 10/08/16 13:30 78 19 114/61 95 10/08/16 13:00 78 20 113/59 95 10/08/16 12:00 50 10/08/16 12:00 83 10/08/16 12:00 98.5 83 20 121/64 95 I/O 10/08/16 10/08/16 10/08/16 10/09/16 10/09/16 10/09/16 07:00 15:00 23:00 07:00 15:00 23:00 Intake Total 1167 ml 1231 ml 1293 ml 1268 ml Output Total 1505 ml 1650 ml 2150 ml 2300 ml Balance -338 ml -419 ml -857 ml -1032 ml IV Total 504 ml 517 ml 618 ml 472 ml TPN/PPN 585 ml 630 ml 604 ml 712 ml Lipid 78 ml 84 ml 71 ml 84 ml Output Urine Total 1480 ml 1450 ml 2000 ml 2200 ml Gastric Drainage Total 25 ml 200 ml 150 ml 100 ml # Bowel Movements 2 1 1 Result Diagram: 10/09/1645 10/09/1645 Objective Remarks GENERAL: MBMN WF, on Vent SKIN: Warm and dry. HEAD: Normocephalic. EYES: No scleral icterus. No injection or drainage. NECK: Supple, trachea midline. No JVD or lymphadenopathy. CARDIOVASCULAR: Regular rate and rhythm without murmurs, gallops, or rubs. RESPIRATORY: Breath sounds equal bilaterally. No accessory muscle use. GASTROINTESTINAL: Abdomen soft, non-tender, nondistended. MUSCULOSKELETAL: No cyanosis, or edema. BACK: Nontender without obvious deformity. No CVA tenderness. A/P Assessment and Plan VDRF COPD Exac HTN Nicotine use PLAN sedation with Diprivan Aerosol nebs cont Steroids Cont Vent support Wean Fi02 Abx per ID CPAP trial Abdirahman Marquez MD Oct 09, 2016 11:49
[2016-10-09] MEDS ORDERED: CEFEPIME INJ 2,000 MG in SODIUM CHLORIDE 0.9% INJ 100 ML IV SCH (13:00)
--- NOTE | 2016-10-09 15:06 | RADRPT ---
EXAM DATE/TIME: 10/09/2016 14:07 [place] COMPARISON: CT ABDOMEN & PELVIS W CONTRAST, October 04, 2016, 16:28. ABDOMEN KUB ONLY, October 08, 2016, 8:39. INDICATIONS : Distention. MEDICAL HISTORY : Hypertension. Chronic obstructive pulmonary disease. Asthma. SURGICAL HISTORY : None. ENCOUNTER: Initial ACUITY: 1 day PAIN SCORE: Non-responsive. LOCATION: Bilateral abdomen. FINDINGS: Nasogastric tube remains in place. There is persistent gaseous distention of what appears to be mainl y colon over the upper abdomen. No suspicious calcific densities. Regional skeleton is stable and yoan ssly intact. CONCLUSION: Persistent gaseous distention of colon Oliver Harman MD on October 09, 2016 at 14:58 Board Certified Radiologist. This report was verified electronically.
[2016-10-09] MEDS: FLUCONAZOLE 400 MG PREMIX BAG 200 ML IV SCH (15:35)
--- NOTE | 2016-10-09 15:38 | HHI.GIFU ---
Subjective Remarks Per RN no BM today, abd softer. Still with jenelle output OG, prob getting trach wednesday. Objective Vitals I&O Vital Signs Date Time Temp Pulse Resp B/P Pulse Ox O2 Delivery O2 Flow Rate FiO2 10/09/16 13:19 45 10/09/16 12:32 40 10/09/16 12:01 97.8 75 11 169/89 97 10/09/16 12:00 10/09/16 11:33 40 10/09/16 11:15 97 40 10/09/16 08:00 98.4 70 18 129/66 93 10/09/16 08:00 40 10/09/16 07:56 93 40 10/09/16 06:00 79 10/09/16 04:00 45 10/09/16 04:00 97.3 80 21 137/74 95 10/09/16 04:00 80 10/09/16 03:57 95 45 10/09/16 02:00 69 10/09/16 01:27 94 45 10/09/16 00:00 75 10/09/16 00:00 45 10/09/16 00:00 99.3 75 19 132/73 96 10/08/16 22:46 97 45 10/08/16 22:00 79 10/08/16 20:15 96 45 10/08/16 20:00 98.5 10/08/16 20:00 45 10/08/16 20:00 83 10/08/16 20:00 98.5 83 21 121/68 95 10/08/16 18:00 70 10/08/16 17:00 71 21 126/69 96 10/08/16 16:30 72 24 124/69 95 10/08/16 16:00 99.0 72 19 120/67 95 10/08/16 16:00 75 10/08/16 16:00 45 10/08/16 15:30 74 21 119/66 95 I/O 10/08/16 10/08/16 10/08/16 10/09/16 10/09/16 10/09/16 07:00 15:00 23:00 07:00 15:00 23:00 Intake Total 1167 ml 1231 ml 1293 ml 1268 ml 1104 ml Output Total 1505 ml 1650 ml 2150 ml 2300 ml 1775 ml Balance -338 ml -419 ml -857 ml -1032 ml -671 ml IV Total 504 ml 517 ml 618 ml 472 ml 401 ml TPN/PPN 585 ml 630 ml 604 ml 712 ml 620 ml Lipid 78 ml 84 ml 71 ml 84 ml 83 ml Output Urine Total 1480 ml 1450 ml 2000 ml 2200 ml 1775 ml Gastric Drainage Total 25 ml 200 ml 150 ml 100 ml # Bowel Movements 2 1 1 Laboratory Laboratory Tests Test 10/09/16 05:45 White Blood Count 26.0 Red Blood Count 4.06 Hemoglobin 12.0 Hematocrit 37.1 Mean Corpuscular Volume 91.2 Mean Corpuscular Hemoglobin 29.6 Mean Corpuscular Hemoglobin 32.4 Concent Red Cell Distribution Width 13.4 Platelet Count 238 Mean Platelet Volume 8.7 Neutrophils (%) (Auto) 92.2 Lymphocytes (%) (Auto) 1.9 Monocytes (%) (Auto) 5.1 Eosinophils (%) (Auto) 0.0 Basophils (%) (Auto) 0.8 Neutrophils # (Auto) 24.0 Lymphocytes # (Auto) 0.5 Monocytes # (Auto) 1.3 Eosinophils # (Auto) 0.0 Basophils # (Auto) 0.2 CBC Comment AUTO DIFF Differential Total Cells 100 Counted Neutrophils % (Manual) 90 Band Neutrophils % 1 Lymphocytes % 3 Monocytes % 2 Neutrophils # (Manual) 24.7 Metamyelocytes 1 Myelocytes 2 Promyelocytes 1 Differential Comment FINAL DIFF MANUAL Toxic Vacuolation PRESENT Platelet Estimate NORMAL Platelet Morphology Comment NORMAL Red Cell Morphology Comment NORMAL Sodium Level 143 Potassium Level 4.5 Chloride Level 106 Carbon Dioxide Level 28.6 Anion Gap 8 Blood Urea Nitrogen 31 Creatinine 0.41 Estimat Glomerular Filtration 160 Rate Random Glucose 131 Calcium Level 8.2 Total Bilirubin 0.4 Aspartate Amino Transf 76 (AST/SGOT) Alanine Aminotransferase 144 (ALT/SGPT) Alkaline Phosphatase 43 Total Protein 5.3 Albumin 2.2 Date/Time Procedure Status Source Growth 10/07/16 18:45 Gram Stain - Final Resulted Sputum Endotracheal 10/07/16 18:45 Sputum Culture - Preliminary Resulted Sputum Endotracheal MODERATE GROWTH NORMAL RESPIRATORY FL... 10/05/16 21:00 Urine Culture - Final Complete Urine Catheterized Urine NO GROWTH IN 48 HOURS. 10/05/16 19:45 Aerobic Blood Culture - Preliminary Resulted Blood Peripheral NO GROWTH IN 4 DAYS 10/05/16 19:45 Anaerobic Blood Culture - Preliminary Resulted Blood Peripheral NO GROWTH IN 4 DAYS Physical Exam HEENT: Normocephalic; atraumatic; no jaundice. CHEST: OETT to vent. CARDIAC: RRR ABDOMEN: softer today, tympanic, somewhat distended. Hypoactive bowel sounds. rust colored drainage from NGT EXTREMITIES: Generalized edema, more in upper extremities, trace edema ble. 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 Assessment and Plan Plan ASSESSMENT - dysphagia - need for longterm ventilation - Called Daughter hanna Hilton [phone] 10/09 1530 to discuss PEG, she is hesitant at this time. - Severe colonic ileus/constipation. s/p Rectal exam by CRS with subsequent liquid stool and gas emission S/P Decompressive colonoscopy (10/01/16)--Poor prep colonic decompression- marked improvement, hemorrhoids S/P Decompressive colonoscopy (10/03/16)--> Poor prep, ulcer rectum, internal hemorrhoids decompressive colonoscopy 10/07 ok, air aspirated, no infection or ischemia Abdomen/Pelvis CT (10/04/16)-----> 1. Severe colonic ileus which has increased slightly colon now measuring up to about 9.4 cm in diameter. Air is seen progressing distally into the rectosigmoid. Abdomen X-Ray ()----> Persistent abnormal dilatation of bowel. KUB 8-10 slight improvement, KUB /11 pending. S/P Enemas, S/P Neostigmine (10/04). On bowel regimen- Reglan, colace, dulcolax, miralax. - Acute hypercarbic resp failure, acute COPD exacerbation, bronchospasm, vent per [facility] trach planned for wednesday. - Leukocytosis. WBC improving. cefepime, flagyl - HTN per attending. Plan: - continue frequent turning pt to facilitate flatus and stool - consider PEG, daughter thinking on it - continue bowel regimen -- NPO - TPN - Supportive care This pt seen by myself and Dr Buckley and this note written on his behalf Korina Foley Oct 09, 2016 15:38
[2016-10-09] MEDS: FAT EMULSION 20% INJ 250 ML (@10 mls/hr) IV SCH (19:58)
[2016-10-09] MEDS: CLINIMIX E 4.25/5 2000 mL- >42 mls/hr IV SCH ×3 (20:04)
[2016-10-10] VITALS (19 sets, daily range): BP systolic 130–183; BP diastolic 67–97; PULSE 72–92; RESP 20–24; TEMP 97.4–98.3; O2SAT 93–97
[2016-10-10] MEDS: PROPOFOL 1000 MG/100 ML INJ 100 ML IV SCH ×2 (00:51→05:12)
[2016-10-10] MEDS: metroNIDAZOLE 500 MG INJ 100 ML IV SCH ×3 (00:52→17:08)
[2016-10-10] MEDS: DILTIAZEM HCL 60 MG TAB PO SCH ×4 (00:52→20:13)
[2016-10-10] MEDS: methylPREDNISolone SOD SUCC 125 MG/2 ML VIAL IV SCH ×3 (05:12→20:13)
[2016-10-10] MEDS: METOCLOPRAMIDE HCL 10 MG/2 ML VIAL IV PUSH SCH ×3 (05:12→22:46)
[2016-10-10] MEDS: INSULIN NovoLIN REGULAR SUPPLEMENTAL SCALE SQ SCH ×4 (06:00→18:00)
[2016-10-10 06:11] LABS: AUTOMATED NEUTROPHIL # 25.9 TH/MM3 (1.8-7.7); BASOPHIL % 0.1 % (0.0-2.0); LYMPH % 1.9 % (9.0-44.0); LYMPHOCYTE # 0.5 TH/MM3 (1.0-4.8); MEAN CELL VOLUME 88.6 FL (80.0-100.0); MEAN CORPUSCULAR HGB CONC 33.8 % (32.0-36.0); PLATELET COUNT 241 TH/MM3 (150-450); RED BLOOD COUNT 4.17 MIL/MM3 (4.00-5.30); RED CELL DISTRIBUTION WIDTH 13.4 % (11.6-17.2); WHITE BLOOD COUNT 27.9 TH/MM3 (4.0-11.0)
[2016-10-10 06:13] LABS: HEMO FLAGS AUTO DIFF
[2016-10-10 06:37] LABS: BICARBONATE 29.1 MEQ/L (21.0-32.0); POTASSIUM 4.1 MEQ/L (3.5-5.1)
--- NOTE | 2016-10-10 07:41 | HHI.CCPN ---
Subjective Remarks/Hospital Course The patient is a 56-year-old female with past medical history of COPD and hypertension who presented to the [facility] ED with a 2-week history of progressive shortness of breath. In addition, she reports a dry cough and wheezing. The patient denies any constitutional symptoms. In addition she denies any nausea, vomiting, or abdominal pain. No history of orthopnea, PND or edema of lower extremities. She denies any use of oxygen at home; however, she uses nebulizers and is on Symbicort. In the ED the patient was given IV steroids and bronchodilator treatments. She was in the ER last night with the same presentation and after several hours of treatments she was discharged with a prescription for a tapered dose of prednisone. In addition, she was given a new albuterol inhaler. She came back a few hours later in respiratory distress. A chest x-ray from last night showed no acute disease. No laboratory data or blood gases available today; however, ABG from last night on a BiPAP 02/03 with 35% FIO2 showed a pH of 7.37, CO2 40, pAO2 of 105, bicarb 23 and saturation of 96%. 09/26 Patient was intubated yesterday for resp distress sedated with Versed 5mg and low doses Fentanyl and Diprivan. Afebrile. Given 1L NS last night for hypotension 09/27 Patient is sedated with Fentanyl and intubated. Afebrile. Patient was initially placed on PC/AC last night however his ABG showed acute resp acidosis with PH: 7.26,COP2 52 he was placed back on PRVC/AC mode. 09/28 Patient remains sedated with Fentanyl and versed placed on Nimbex overnight. Afebrile. WBC is trending down. 09/29 No events overnight. Sedated and intubated. Hypertensive. 09/30 Patient remains intubated and sedated. Off Nimbex. Afebrile. 10/01: Patient has significant bilateral wheezing. Abdominal distention increasing. No bowel movement since admission. KUB pending. Reduced RR to 14 to avoid air trapping 10/02 No events overnight, sedated with Fentanyl and Versed. Afebrile. s/p colonoscopy yesterday for colonic decompression, rectal tube to suction 10/03: . Plan for decompressive colonoscopy today due to 10.5 cm cecum. Patient is arousable and follows commands. FiO2 35%. Saturations 99%. No bowel movement. Subjective 10/04: Status post expressive colonoscopy yesterday. X-ray revealed 11.7 cm dilated: Today. Bladder pressures around 9-11. This a.m., asynchronous with the ventilator so paralyzed with rocuronium currently on a Nimbex drip. 10/05 Patient remains sedated and intubated in addition he is on Nimbex. Afebrile. 10/06 Patient remains intubated and sedated with Versed and Diprivan , on Nimbex. Afebrile. 10/07: Remains intubated, sedated. Abdomen remains distended. GI planning on decompressive colonoscopy today. Overnight had bowel movement. FiO2 remains high at 60%. Chest x-ray shows left lower lobe consolidation. Start cefepime 2 g IV every 8 hours 10/08 Patient is sedated with Versed and Diprivan. s/p colonoscopy yesterday for colonic decompression. On PRVC with PEEP:8 and 50% FIO2. 10/09 No events overnight. sedated with Diprivan and versed. Afebrile. On PRVC with PEEP: 8, FIO2 45%. 10/10 Patient is sedated with Diprivan and intubated. Did not tolerate CPAP trials yesterday as she became tachypneic. Afebrile. Objective Vital Signs Date Time Temp Pulse Resp B/P Pulse Ox O2 Delivery O2 Flow Rate FiO2 10/10/16 06:00 76 10/10/16 04:55 97 40 10/10/16 04:00 97.4 24 152/88 Intake and Output 10/09/16 10/09/16 10/10/16 08:00 16:00 00:00 Intake Total 1268 ml 1104 ml 1426 ml Output Total 2300 ml 1775 ml 2600 ml Balance -1032 ml -671 ml -1174 ml Result Diagram: 10/10/16 0421 10/10/16 0421 Other Results Laboratory Tests Test 10/10/16 04:21 White Blood Count 27.9 TH/MM3 Red Blood Count 4.17 MIL/MM3 Hemoglobin 12.5 GM/DL Hematocrit 37.0 % Mean Corpuscular Volume 88.6 FL Mean Corpuscular Hemoglobin 30.0 PG Mean Corpuscular Hemoglobin 33.8 % Concent Red Cell Distribution Width 13.4 % Platelet Count 241 TH/MM3 Mean Platelet Volume 9.1 FL Neutrophils (%) (Auto) 93.0 % Lymphocytes (%) (Auto) 1.9 % Monocytes (%) (Auto) 5.0 % Eosinophils (%) (Auto) 0.0 % Basophils (%) (Auto) 0.1 % Neutrophils # (Auto) 25.9 TH/MM3 Lymphocytes # (Auto) 0.5 TH/MM3 Monocytes # (Auto) 1.4 TH/MM3 Eosinophils # (Auto) 0.0 TH/MM3 Basophils # (Auto) 0.0 TH/MM3 CBC Comment AUTO DIFF Sodium Level 142 MEQ/L Potassium Level 4.1 MEQ/L Chloride Level 105 MEQ/L Carbon Dioxide Level 29.1 MEQ/L Anion Gap 8 MEQ/L Blood Urea Nitrogen 30 MG/DL Creatinine 0.46 MG/DL Estimat Glomerular Filtration 141 ML/MIN Rate Random Glucose 129 MG/DL Calcium Level 8.6 MG/DL Imaging Last Impressions Chest X-Ray 10/09/16 0000 Signed Impressions: Service Date/Time: Sunday, October 09, 2016 08:36 - CONCLUSION: Stable chest x-ray with left basilar opacity likely representing pleural effusion with associated airspace consolidation and/or volume loss. Oliver Garcia MD Abdomen X-Ray 10/09/16 0000 Signed Impressions: Service Date/Time: Sunday, October 09, 2016 14:07 - CONCLUSION: Persistent gaseous distention of colon Oliver Harman MD Abdomen/Pelvis CT 10/04/16 0000 Signed Impressions: Service Date/Time: Tuesday, October 04, 2016 16:28 - CONCLUSION: 1. Severe colonic ileus which has increased slightly since October 01 with colon now measuring up to about 9.4 cm in diameter. Air is seen progressing distally into the rectosigmoid. 2. Mild anasarca. 3. Lawson catheter tip in bladder. 4. Mild right basilar airspace disease with dependent atelectasis. Jay Jay Burgess MD Objective Remarks GENERAL: 56 yo female, critically ill currently intubated and heavily sedated SKIN: Warm and dry. No rash. HEAD: Normocephalic. EYES: No scleral icterus. No injection or drainage. NECK: Supple, trachea midline. No JVD or lymphadenopathy. CARDIOVASCULAR: Regular rate and rhythm without murmurs, gallops, or rubs. RESPIRATORY: Breath sounds equal bilaterally. Coarse BS, diffuse wheezing. FiO2 60% GASTROINTESTINAL: Abdomen distended. Tense. No bowel sounds appreciated. MUSCULOSKELETAL: No significant peripheral edema. Neuro: Intubated heavily sedated, limits neuro exam A/P Assessment and Plan Acute hypercarbic respiratory failure Acute COPD exacerbation. Colonic ileus LLL infiltrate/Probable HCAP Bronchospasm Leukocytosis History of tobacco abuse. Hypertension. Internal hemorrhoids Plan Neuro: On Diprivan infusion for sedation and vent synchrony. Daily sedation vacation. Pulm:Continue with vent support and maintain sats > 90%. Check ABG On PRVC RR 14, TV 550, PEEP:8, FIO2 45%, IT:1.20 Bronchodilators, Pulmicort nebulizers q. 12, Spiriva one cap daily. Solu-Medrol 40mg Q8, ICU vent bundle. if no improvements in weaning trials will need trach next week, Pulm is following- Dr. Marquez, CV: On Cardizem 60mg QID, Monitor HR and BP keep MAP>65mmHg. : Monitor renal function, I/O's and electrolyte replacement as needed. GI: On Protonix 40 mg IV daily. s/p colonoscopy 10/07 for colonic decompression. GI and CRS are following KUB abdomen 10/09: persistent gaseous dilatation of colon KUB abdomen 10/08: Slight distention in gaseous distention of bowel KUB 10/06: Slight decreased bowel dilation. KUB 10/05- persistent abnormal dilation of bowel- on metoclopramide 10 mg IV every 8 hours. s/p colonoscopy 10/01 and 10/03 for colonic decompression -showed internal and external hemorrhoids. Currently on PPN at 75 cc an hour with lipids daily Continue aggressive bowel regimen with docusate sodium, Senokot, polyethylene glycol and lactulose ,Relistor daily ID: On Flagyl, Diflucan, Cefepime . Monitor for signs of infections ( Fever, WBC) C-diff PCR-neg Follow up on sputum culture from 10/07 - no growth 10/05 Blood, Urine cx: NGTD 09/27 BC: NGTD 09/26, Sputum cx: normal growth, Urine : NGTD Endo: SSI with accuchecks. Heme: Monitor CBC. GI prophylaxis with Protonix 40 mg daily and DVT prophylaxis with SCDs and Lovenox 40 mg subcu daily. CCT 30 MIN Carmita Oconnell MD Oct 10, 2016 07:41
[2016-10-10] MEDS: CHLORHEXIDINE 0.12% (ORAL KIT) 15 ML CUP MT SCH ×4 (08:00→20:00)
[2016-10-10] MEDS: RESP: BUDESONIDE 0.5 MG/2 ML NEB NEB SCH ×2 (08:04→20:03)
[2016-10-10] MEDS: RESP: ALBUTEROL 2.5 MG/IPRATROPIUM 0.5 MG NEB (PRN) NEB (08:04)
[2016-10-10 08:17] LABS: BANDS 2 % (0-6); NEUTROPHIL # MANUAL DIFF 26.8 TH/MM3 (1.8-7.7); POLYS (SEG NEUTROPHILS) 94 % (16-70); WBC DIFF SAMPLE 100
[2016-10-10 08:31] LABS: PLATELET ESTIMATE SMEAR NORMAL (NORMAL); PLATELET MORPHOLOGY NORMAL (NORMAL); SCAN/DIFF FINAL DIFF MANUAL
[2016-10-10] MEDS: TIOTROPIUM BROMIDE 18 MCG INH INH SCH (09:00)
[2016-10-10] MEDS: SODIUM CHLORIDE 0.9% FLUSH 10 ML FLUSH IV FLUSH SCH ×2 (09:00→20:13)
[2016-10-10] MEDS: CEFEPIME INJ 2,000 MG in SODIUM CHLORIDE 0.9% INJ 100 ML IV SCH ×2 (09:23→20:13)
[2016-10-10] MEDS: PANTOPRAZOLE SODIUM 40 MG VIAL IV PUSH SCH (09:24)
[2016-10-10] MEDS: DOCUSATE SODIUM 100 MG/10 ML UDC PO SCH ×2 (09:24→20:13)
[2016-10-10] MEDS: POLYETHYLENE GLYCOL 17 GM PKG PEG SCH (09:24)
[2016-10-10] MEDS: BISACODYL 10 MG SUPP RECTAL SCH (09:24)
[2016-10-10] MEDS: LORazepam 2 MG/ML VIAL IV PUSH PRN (10:05)
[2016-10-10] MEDS: hydrALAZINE HCL 20 MG/ML VIAL IV PUSH PRN (11:16)
--- NOTE | 2016-10-10 11:41 | HHI.PR ---
Subjective Remarks 56 YOWF with VDRF, sedated no Fever Sedated with,Diprivan abd distension decreased., On ACV Objective Vital Signs Vital Signs Date Time Temp Pulse Resp B/P Pulse Ox O2 Delivery O2 Flow Rate FiO2 10/10/16 10:00 80 10/10/16 08:05 97 40 10/10/16 08:00 98.0 85 20 157/93 95 10/10/16 08:00 85 10/10/16 08:00 40 10/10/16 06:00 76 10/10/16 04:55 97 40 10/10/16 04:00 92 10/10/16 04:00 97.4 92 24 152/88 94 10/10/16 04:00 40 10/10/16 02:00 86 10/10/16 01:16 95 40 10/10/16 00:00 97.8 85 22 96 10/10/16 00:00 40 10/10/16 00:00 85 10/09/16 22:06 96 40 10/09/16 22:00 79 10/09/16 20:37 95 40 10/09/16 20:00 76 10/09/16 20:00 99.1 76 22 155/81 96 10/09/16 20:00 40 10/09/16 16:08 40 10/09/16 16:03 40 10/09/16 16:03 40 10/09/16 16:00 98.6 84 22 147/76 93 10/09/16 15:58 94 40 10/09/16 13:19 45 10/09/16 12:32 40 10/09/16 12:01 97.8 75 11 169/89 97 10/09/16 12:00 I/O 10/09/16 10/09/16 10/09/16 10/10/16 10/10/16 10/10/16 07:00 15:00 23:00 07:00 15:00 23:00 Intake Total 1268 ml 1104 ml 1426 ml 953 ml Output Total 2300 ml 1775 ml 2600 ml 1600 ml Balance -1032 ml -671 ml -1174 ml -647 ml IV Total 472 ml 401 ml 639 ml 316 ml TPN/PPN 712 ml 620 ml 702 ml 570 ml Lipid 84 ml 83 ml 85 ml 67 ml Output Urine Total 2200 ml 1775 ml 1950 ml 1600 ml Gastric Drainage Total 100 ml 650 ml # Bowel Movements 1 Result Diagram: 10/10/1642010/10/16420 Objective Remarks GENERAL: MBMN WF, on Vent SKIN: Warm and dry. HEAD: Normocephalic. EYES: No scleral icterus. No injection or drainage. NECK: Supple, trachea midline. No JVD or lymphadenopathy. CARDIOVASCULAR: Regular rate and rhythm without murmurs, gallops, or rubs. RESPIRATORY: Breath sounds equal bilaterally. No accessory muscle use. GASTROINTESTINAL: Abdomen soft, non-tender, nondistended. MUSCULOSKELETAL: No cyanosis, or edema. BACK: Nontender without obvious deformity. No CVA tenderness. A/P Assessment and Plan VDRF COPD Exac HTN Nicotine use PLAN sedation with Diprivan Aerosol nebs cont Steroids Cont Vent support Wean Fi02 Abx per ID CPAP trial with Precedex If fails will need trach Abdirahman Marquez MD Oct 10, 2016 11:41
--- NOTE | 2016-10-10 11:55 | HHI.GIFU ---
Subjective Remarks Pt to undergo further CPAP trials today, daughter coming. possible extubation. If reintubated will need trach. Per RN mult BM overnight, none today. Still copious output from NGT, rust colored. (Korina Foley) Objective Vitals I&O Vital Signs Date Time Temp Pulse Resp B/P Pulse Ox O2 Delivery O2 Flow Rate FiO2 10/10/16 11:37 40 10/10/16 11:37 95 40 10/10/16 10:00 80 10/10/16 08:05 97 40 10/10/16 08:00 98.0 85 20 157/93 95 10/10/16 08:00 85 10/10/16 08:00 40 10/10/16 06:00 76 10/10/16 04:55 97 40 10/10/16 04:00 92 10/10/16 04:00 97.4 92 24 152/88 94 10/10/16 04:00 40 10/10/16 02:00 86 10/10/16 01:16 95 40 10/10/16 00:00 97.8 85 22 96 10/10/16 00:00 40 10/10/16 00:00 85 10/09/16 22:06 96 40 10/09/16 22:00 79 10/09/16 20:37 95 40 10/09/16 20:00 76 10/09/16 20:00 99.1 76 22 155/81 96 10/09/16 20:00 40 10/09/16 16:08 40 10/09/16 16:03 40 10/09/16 16:03 40 10/09/16 16:00 98.6 84 22 147/76 93 10/09/16 15:58 94 40 10/09/16 13:19 45 10/09/16 12:32 40 10/09/16 12:01 97.8 75 11 169/89 97 10/09/16 12:00 I/O 10/09/16 10/09/16 10/09/16 10/10/16 10/10/16 10/10/16 06:59 14:59 22:59 06:59 14:59 22:59 Intake Total 1268 ml 1104 ml 1426 ml 953 ml Output Total 2300 ml 1775 ml 2600 ml 1600 ml Balance -1032 ml -671 ml -1174 ml -647 ml IV Total 472 ml 401 ml 639 ml 316 ml TPN/PPN 712 ml 620 ml 702 ml 570 ml Lipid 84 ml 83 ml 85 ml 67 ml Output Urine Total 2200 ml 1775 ml 1950 ml 1600 ml Gastric Drainage Total 100 ml 650 ml # Bowel Movements 1 Laboratory Laboratory Tests Test 10/10/16 04:21 White Blood Count 27.9 Red Blood Count 4.17 Hemoglobin 12.5 Hematocrit 37.0 Mean Corpuscular Volume 88.6 Mean Corpuscular Hemoglobin 30.0 Mean Corpuscular Hemoglobin 33.8 Concent Red Cell Distribution Width 13.4 Platelet Count 241 Mean Platelet Volume 9.1 Neutrophils (%) (Auto) 93.0 Lymphocytes (%) (Auto) 1.9 Monocytes (%) (Auto) 5.0 Eosinophils (%) (Auto) 0.0 Basophils (%) (Auto) 0.1 Neutrophils # (Auto) 25.9 Lymphocytes # (Auto) 0.5 Monocytes # (Auto) 1.4 Eosinophils # (Auto) 0.0 Basophils # (Auto) 0.0 CBC Comment AUTO DIFF Differential Total Cells 100 Counted Neutrophils % (Manual) 94 Band Neutrophils % 2 Lymphocytes % 1 Monocytes % 3 Neutrophils # (Manual) 26.8 Differential Comment FINAL DIFF MANUAL Platelet Estimate NORMAL Platelet Morphology Comment NORMAL Red Cell Morphology Comment NORMAL Sodium Level 142 Potassium Level 4.1 Chloride Level 105 Carbon Dioxide Level 29.1 Anion Gap 8 Blood Urea Nitrogen 30 Creatinine 0.46 Estimat Glomerular Filtration 141 Rate Random Glucose 129 Calcium Level 8.6 Date/Time Procedure Status Source Growth 10/07/16 18:45 Gram Stain - Final Resulted Sputum Endotracheal 10/07/16 18:45 Sputum Culture - Preliminary Resulted Sputum Endotracheal MODERATE GROWTH NORMAL RESPIRATORY FL... 10/05/16 21:00 Urine Culture - Final Complete Urine Catheterized Urine NO GROWTH IN 48 HOURS. 10/05/16 19:45 Aerobic Blood Culture - Final Complete Blood Peripheral NO GROWTH IN 5 DAYS 10/05/16 19:45 Anaerobic Blood Culture - Final Complete Blood Peripheral NO GROWTH IN 5 DAYS Physical Exam HEENT: Normocephalic; atraumatic; no jaundice. NGT CHEST: OETT to vent. CARDIAC: RRR ABDOMEN: softer today, tympanic, somewhat distended. Hypoactive bowel sounds. rust colored drainage from NGT EXTREMITIES: Generalized edema, more in upper extremities, trace edema ble. 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 pt to undergo CPAP trials today with poss extubation depending on outcome. If extubated and reintubated will need trach. - Severe colonic ileus/constipation. s/p Rectal exam by CRS with subsequent liquid stool and gas emission S/P Decompressive colonoscopy (10/01/16)--Poor prep colonic decompression- marked improvement, hemorrhoids S/P Decompressive colonoscopy (10/03/16)--> Poor prep, ulcer rectum, internal hemorrhoids decompressive colonoscopy 10/07 ok, air aspirated, no infection or ischemia Abdomen/Pelvis CT (10/04/16)-----> 1. Severe colonic ileus which has increased slightly colon now measuring up to about 9.4 cm in diameter. Air is seen progressing distally into the rectosigmoid. Abdomen X-Ray ()----> Persistent abnormal dilatation of bowel. KUB 8-10 slight improvement, KUB 8/11 persistent gaseous distention colon. S/P Enemas, S/P Neostigmine (10/04). On bowel regimen- Reglan, colace, dulcolax, miralax. - Acute hypercarbic resp failure, acute COPD exacerbation, bronchospasm, vent per CCM - Leukocytosis. WBC improving. cefepime, flagyl - HTN per attending. Plan: - consider rectal tube - continue frequent turning pt to facilitate flatus and stool - await CPAP trials and poss extubation - If pt remains intubated will need PEG if daughter agreeable - continue bowel regimen -- NPO - TPN - Supportive care This pt seen by myself and Dr Jimenez and this note written on his behalf ( Korina Foley) Plan Patient was seen and examined, admitted with above-noted complaint, if she failed extubation and needed x-ray then picked tube will be placed. Please call us if the PEG tube need to be inserted. (Morgan Jimenez MD) Korina Foley Oct 10, 2016 11:55 Morgan Jimenez MD Oct 10, 2016 13:53
[2016-10-10 13:44] LABS: BLOOD GAS BASE EXCESS 3.2 mmol/L (-2-2); BLOOD GAS CARBOXYHEMOGLOBIN 1.3 % (0-4); BLOOD GAS HCO3 26 mmol/L (22-26); BLOOD GAS METHEMOGLOBIN 1.2 % (0-2); BLOOD GAS O2 HGB SATURATION 94 % (90-100); BLOOD GAS OXYGEN CONTENT 16.9 Vol % (12.0-20.0); BLOOD GAS PCO2 32 mmHg (38-42); BLOOD GAS PO2 81 mmHg (61-120); BLOOD GAS TOTAL HGB 12.8 G/DL (12.0-16.0); CRITICAL VALUE YES; DRAW SITE RT RADIAL; FIO2 40 %; NUMBER OF ARTERIAL PUNCTURES 1; OXYGEN DEVICE VENTILATOR; STAT NO; TEMP CORR TO 98.6; ULNAR PULSE PRESENT; VENT SETTINGS CPAP 5/PS 10
[2016-10-10] MEDS: RESP: ALBUTEROL 2.5 MG/IPRATROPIUM 0.5 MG NEB (SCH) NEB ×2 (16:16→20:04)
[2016-10-10] MEDS: FLUCONAZOLE 400 MG PREMIX BAG 200 ML IV SCH (17:08)
[2016-10-10] MEDS: FAT EMULSION 20% INJ 250 ML (@10 mls/hr) IV SCH (20:14)
[2016-10-10] MEDS: CLINIMIX E 4.25/5 2000 mL- >42 mls/hr IV SCH ×3 (20:14)
[2016-10-10] MEDS: HALOPERIDOL LACTATE 5 MG/ML AMP IV PUSH PRN (22:46)
[2016-10-11] VITALS (15 sets, daily range): BP systolic 137–180; BP diastolic 71–94; PULSE 65–85; RESP 15–24; TEMP 97.3–98.3; O2SAT 93–97
[2016-10-11] MEDS: RESP: ALBUTEROL 2.5 MG/IPRATROPIUM 0.5 MG NEB (SCH) NEB ×6 (00:38→20:23)
[2016-10-11] MEDS: metroNIDAZOLE 500 MG INJ 100 ML IV SCH ×3 (00:59→15:37)
[2016-10-11] MEDS: DILTIAZEM HCL 60 MG TAB PO SCH ×4 (01:00→22:19)
[2016-10-11] MEDS: methylPREDNISolone SOD SUCC 125 MG/2 ML VIAL IV SCH ×3 (04:23→22:19)
[2016-10-11] MEDS: METOCLOPRAMIDE HCL 10 MG/2 ML VIAL IV PUSH SCH ×3 (05:19→22:19)
[2016-10-11] MEDS: hydrALAZINE HCL 20 MG/ML VIAL IV PUSH PRN ×2 (05:44→17:58)
[2016-10-11] MEDS: INSULIN NovoLIN REGULAR SUPPLEMENTAL SCALE SQ SCH ×4 (06:00→17:07)
[2016-10-11] MEDS: DOCUSATE SODIUM 100 MG/10 ML UDC PO SCH ×2 (07:47→21:00)
[2016-10-11] MEDS: CEFEPIME INJ 2,000 MG in SODIUM CHLORIDE 0.9% INJ 100 ML IV SCH ×2 (07:48→22:19)
[2016-10-11] MEDS: POLYETHYLENE GLYCOL 17 GM PKG PEG SCH (07:48)
[2016-10-11] MEDS: PANTOPRAZOLE SODIUM 40 MG VIAL IV PUSH SCH (07:48)
[2016-10-11] MEDS: CHLORHEXIDINE 0.12% (ORAL KIT) 15 ML CUP MT SCH ×4 (07:49→20:00)
[2016-10-11] MEDS: SODIUM CHLORIDE 0.9% FLUSH 10 ML FLUSH IV FLUSH SCH ×2 (07:49→22:20)
[2016-10-11] MEDS: BISACODYL 10 MG SUPP RECTAL SCH (07:49)
[2016-10-11] MEDS: RESP: BUDESONIDE 0.5 MG/2 ML NEB NEB SCH ×2 (07:58→20:51)
--- NOTE | 2016-10-11 08:02 | HHI.CCPN ---
Subjective Remarks/Hospital Course The patient is a 56-year-old female with past medical history of COPD and hypertension who presented to the [facility] ED with a 2-week history of progressive shortness of breath. In addition, she reports a dry cough and wheezing. The patient denies any constitutional symptoms. In addition she denies any nausea, vomiting, or abdominal pain. No history of orthopnea, PND or edema of lower extremities. She denies any use of oxygen at home; however, she uses nebulizers and is on Symbicort. In the ED the patient was given IV steroids and bronchodilator treatments. She was in the ER last night with the same presentation and after several hours of treatments she was discharged with a prescription for a tapered dose of prednisone. In addition, she was given a new albuterol inhaler. She came back a few hours later in respiratory distress. A chest x-ray from last night showed no acute disease. No laboratory data or blood gases available today; however, ABG from last night on a BiPAP 02/03 with 35% FIO2 showed a pH of 7.37, CO2 40, pAO2 of 105, bicarb 23 and saturation of 96%. 09/26 Patient was intubated yesterday for resp distress sedated with Versed 5mg and low doses Fentanyl and Diprivan. Afebrile. Given 1L NS last night for hypotension 09/27 Patient is sedated with Fentanyl and intubated. Afebrile. Patient was initially placed on PC/AC last night however his ABG showed acute resp acidosis with PH: 7.26,COP2 52 he was placed back on PRVC/AC mode. 09/28 Patient remains sedated with Fentanyl and versed placed on Nimbex overnight. Afebrile. WBC is trending down. 09/29 No events overnight. Sedated and intubated. Hypertensive. 09/30 Patient remains intubated and sedated. Off Nimbex. Afebrile. 10/01: Patient has significant bilateral wheezing. Abdominal distention increasing. No bowel movement since admission. KUB pending. Reduced RR to 14 to avoid air trapping 10/02 No events overnight, sedated with Fentanyl and Versed. Afebrile. s/p colonoscopy yesterday for colonic decompression, rectal tube to suction 10/03: . Plan for decompressive colonoscopy today due to 10.5 cm cecum. Patient is arousable and follows commands. FiO2 35%. Saturations 99%. No bowel movement. Subjective 10/04: Status post expressive colonoscopy yesterday. X-ray revealed 11.7 cm dilated: Today. Bladder pressures around 9-11. This a.m., asynchronous with the ventilator so paralyzed with rocuronium currently on a Nimbex drip. 10/05 Patient remains sedated and intubated in addition he is on Nimbex. Afebrile. 10/06 Patient remains intubated and sedated with Versed and Diprivan , on Nimbex. Afebrile. 10/07: Remains intubated, sedated. Abdomen remains distended. GI planning on decompressive colonoscopy today. Overnight had bowel movement. FiO2 remains high at 60%. Chest x-ray shows left lower lobe consolidation. Start cefepime 2 g IV every 8 hours 10/08 Patient is sedated with Versed and Diprivan. s/p colonoscopy yesterday for colonic decompression. On PRVC with PEEP:8 and 50% FIO2. 10/09 No events overnight. sedated with Diprivan and versed. Afebrile. On PRVC with PEEP: 8, FIO2 45%. 10/10 Patient is sedated with Diprivan and intubated. Did not tolerate CPAP trials yesterday as she became tachypneic. Afebrile. 10/11 Patient s/p extubation yesterday placed on BIPAP overnight. Awake and alert. Afebrile. Objective Vital Signs Date Time Temp Pulse Resp B/P Pulse Ox O2 Delivery O2 Flow Rate FiO2 10/11/16 06:00 84 10/11/16 04:10 97 40 10/11/16 04:00 97.3 16 180/82 10/10/16 20:03 Nasal Cannula 2.00 Intake and Output 10/10/16 10/10/16 10/10/16 07:59 15:59 23:59 Intake Total 953 ml 1508 ml 841 ml Output Total 1600 ml 2400 ml 1600 ml Balance -647 ml -892 ml -759 ml Result Diagram: 10/10/16 0421 10/10/16 0421 Other Results Laboratory Tests Test 10/10/16 13:33 Blood Gas Puncture Site RT RADIAL Blood Gas Patient Temperature 98.6 Blood Gas HCO3 26 mmol/L Blood Gas Base Excess 3.2 mmol/L Blood Gas Oxygen Saturation 94 % Arterial Blood pH 7.52 Arterial Blood Partial 32 mmHg Pressure CO2 Arterial Blood Partial 81 mmHg Pressure O2 Arterial Blood Oxygen Content 16.9 Vol % Arterial Blood 1.3 % Carboxyhemoglobin Arterial Blood Methemoglobin 1.2 % Blood Gas Hemoglobin 12.8 G/DL Oxygen Delivery Device VENTILATOR Blood Gas Ventilator Setting CPAP 5/PS 10 Blood Gas Inspired Oxygen 40 % Imaging Last Impressions Chest X-Ray 10/09/16 0000 Signed Impressions: Service Date/Time: Sunday, October 09, 2016 08:36 - CONCLUSION: Stable chest x-ray with left basilar opacity likely representing pleural effusion with associated airspace consolidation and/or volume loss. Oliver Garcia MD Abdomen X-Ray 10/09/16 0000 Signed Impressions: Service Date/Time: Sunday, October 09, 2016 14:07 - CONCLUSION: Persistent gaseous distention of colon Oliver Harman MD Abdomen/Pelvis CT 10/04/16 0000 Signed Impressions: Service Date/Time: Tuesday, October 04, 2016 16:28 - CONCLUSION: 1. Severe colonic ileus which has increased slightly since October 01 with colon now measuring up to about 9.4 cm in diameter. Air is seen progressing distally into the rectosigmoid. 2. Mild anasarca. 3. Lawson catheter tip in bladder. 4. Mild right basilar airspace disease with dependent atelectasis. Jay Jay Burgess MD Objective Remarks GENERAL: Patient is 56 yo lying in bed in NAD SKIN: Warm and dry. HEAD: Normocephalic. EYES: No scleral icterus. No injection or drainage. NECK: Supple, trachea midline. No JVD or lymphadenopathy. CARDIOVASCULAR: Regular rate and rhythm without murmurs, gallops, or rubs. RESPIRATORY: Breath sounds equal bilaterally. No accessory muscle use. GASTROINTESTINAL: Abdomen soft, non-tender, nondistended. MUSCULOSKELETAL: No cyanosis, + edema. Neuro: Awake and alert A/P Assessment and Plan Acute hypercarbic respiratory failure - extubated 10/10 Acute COPD exacerbation. Colonic ileus LLL infiltrate/Probable HCAP Bronchospasm Leukocytosis History of tobacco abuse. Hypertension. Internal hemorrhoids Plan Neuro: Awake and alert, avoid sedatives Pulm:Continue with oxygen and maintain sats > 90%. Bronchodilators, Pulmicort nebulizers q. 12, Spiriva one cap daily. Solu-Medrol 40mg Q8, Pulm is following- Dr. Marquez, CV: On Cardizem 60mg QID, Monitor HR and BP keep MAP>65mmHg. : Monitor renal function, I/O's and electrolyte replacement as needed. GI: On Protonix 40 mg IV daily. s/p colonoscopy 10/07 for colonic decompression. GI and CRS are following KUB abdomen 10/09: persistent gaseous dilatation of colon KUB abdomen 10/08: Slight distention in gaseous distention of bowel KUB 10/06: Slight decreased bowel dilation. KUB 10/05- persistent abnormal dilation of bowel- on metoclopramide 10 mg IV every 8 hours. s/p colonoscopy 10/01 and 10/03 for colonic decompression -showed internal and external hemorrhoids. Currently on PPN at 75 cc an hour with lipids daily Continue aggressive bowel regimen with docusate sodium, Senokot, polyethylene glycol and lactulose ,Relistor daily ID: On Flagyl, Diflucan, Cefepime . Monitor for signs of infections ( Fever, WBC) C-diff PCR-neg Follow up on sputum culture from 10/07 - no growth 10/05 Blood, Urine cx: NGTD 09/27 BC: NGTD 09/26, Sputum cx: normal growth, Urine : NGTD Endo: SSI with accuchecks. Heme: Monitor CBC. GI prophylaxis with Protonix 40 mg daily and DVT prophylaxis with SCDs and Lovenox 40 mg subcu daily. Follow up on labs Level 3 Carmita Oconnell MD Oct 11, 2016 08:01
[2016-10-11 09:28] LABS: AUTOMATED NEUTROPHIL # 30.6 TH/MM3 (1.8-7.7); BASOPHIL # 0.1 TH/MM3 (0-0.2); BASOPHIL % 0.4 % (0.0-2.0); HEMATOCRIT 41.3 % (35.0-46.0); LYMPH % 1.1 % (9.0-44.0); LYMPHOCYTE # 0.3 TH/MM3 (1.0-4.8); MEAN CELL VOLUME 88.5 FL (80.0-100.0); MEAN CORPUSCULAR HEMOGLOBIN 29.7 PG (27.0-34.0); MEAN CORPUSCULAR HGB CONC 33.6 % (32.0-36.0); MONO % 4.2 % (0.0-8.0); NEUT % 94.3 % (16.0-70.0); PLATELET COUNT 228 TH/MM3 (150-450); RED BLOOD COUNT 4.67 MIL/MM3 (4.00-5.30); RED CELL DISTRIBUTION WIDTH 13.3 % (11.6-17.2); WHITE BLOOD COUNT 32.5 TH/MM3 (4.0-11.0)
[2016-10-11 09:35] LABS: ANION GAP 8 MEQ/L (5-15); AST (GOT) 112 U/L (15-37); BICARBONATE 24.4 MEQ/L (21.0-32.0); BLOOD UREA NITROGEN 27 MG/DL (7-18); CHLORIDE 108 MEQ/L (98-107); GLOMERULAR FILTRATION RATE 156 ML/MIN (>89); POTASSIUM 3.7 MEQ/L (3.5-5.1); SODIUM (NA) 140 MEQ/L (136-145)
[2016-10-11 09:36] LABS: ALT (GPT) 285 U/L (10-53); HEMO FLAGS AUTO DIFF
[2016-10-11 09:38] LABS: ALKALINE PHOSPHATASE 62 U/L (45-117); TOTAL BILIRUBIN ADULT 0.7 MG/DL (0.2-1.0)
[2016-10-11 10:17] LABS: BANDS 6 % (0-6); METAMYELOCYTES 2 % (0-1); NEUTROPHIL # MANUAL DIFF 30.9 TH/MM3 (1.8-7.7); PLATELET ESTIMATE SMEAR NORMAL (NORMAL); PLATELET MORPHOLOGY NORMAL (NORMAL); POLYS (SEG NEUTROPHILS) 87 % (16-70); SCAN/DIFF FINAL DIFF MANUAL; WBC DIFF SAMPLE 100
--- NOTE | 2016-10-11 11:26 | HHI.GIFU ---
Subjective Remarks Patient is s/p extubation yesterday. Awake and alert today, in no apparent distress. + BM, diarrhea. (Kaelyn Mccabe) Objective Vitals I&O Vital Signs Date Time Temp Pulse Resp B/P Pulse Ox O2 Delivery O2 Flow Rate FiO2 10/11/16 10:00 74 10/11/16 08:10 94 Nasal Cannula 3.00 10/11/16 08:00 97.9 78 19 146/71 95 10/11/16 08:00 95 Nasal Cannula 4.00 10/11/16 08:00 80 10/11/16 06:00 84 10/11/16 04:10 97 40 10/11/16 04:00 97.3 65 16 180/82 96 10/11/16 04:00 65 10/11/16 02:00 85 10/11/16 01:30 97 40 10/11/16 00:00 97.6 81 15 164/94 93 10/11/16 00:00 81 10/10/16 22:00 74 10/10/16 20:03 93 Nasal Cannula 2.00 10/10/16 20:00 97.8 78 20 183/97 94 10/10/16 20:00 78 10/10/16 18:00 84 10/10/16 16:00 98.3 72 24 130/70 94 10/10/16 16:00 72 10/10/16 14:50 94 Nasal Cannula 4.00 10/10/16 14:50 94 Nasal Cannula 4 10/10/16 14:00 75 10/10/16 14:00 94 Nasal Cannula 4.00 10/10/16 12:35 93 40 10/10/16 12:34 40 10/10/16 12:00 97.9 90 21 133/67 94 10/10/16 12:00 90 10/10/16 12:00 40 10/10/16 11:37 Nasal Cannula 40 10/10/16 11:37 95 40 10/10/16 11:35 40 I/O 10/10/16 10/10/16 10/10/16 10/11/16 10/11/16 10/11/16 06:59 14:59 22:59 06:59 14:59 22:59 Intake Total 953 ml 1508 ml 841 ml 944 ml Output Total 1600 ml 2400 ml 1600 ml 2200 ml Balance -647 ml -892 ml -759 ml -1256 ml IV Total 316 ml 739 ml 304 ml 260 ml TPN/PPN 570 ml 697 ml 473 ml 604 ml Lipid 67 ml 72 ml 64 ml 80 ml Output Urine Total 1600 ml 1900 ml 1600 ml 2000 ml Gastric Drainage Total 500 ml 200 ml # Bowel Movements 1 Laboratory Laboratory Tests Test 10/10/16 10/11/16 13:33 08:59 Blood Gas Puncture Site RT RADIAL Blood Gas Patient Temperature 98.6 Blood Gas HCO3 26 Blood Gas Base Excess 3.2 Blood Gas Oxygen Saturation 94 Arterial Blood pH 7.52 Arterial Blood Partial 32 Pressure CO2 Arterial Blood Partial 81 Pressure O2 Arterial Blood Oxygen Content 16.9 Arterial Blood 1.3 Carboxyhemoglobin Arterial Blood Methemoglobin 1.2 Blood Gas Hemoglobin 12.8 Oxygen Delivery Device VENTILATOR Blood Gas Ventilator Setting CPAP 5/PS 10 Blood Gas Inspired Oxygen 40 White Blood Count 32.5 Red Blood Count 4.67 Hemoglobin 13.9 Hematocrit 41.3 Mean Corpuscular Volume 88.5 Mean Corpuscular Hemoglobin 29.7 Mean Corpuscular Hemoglobin 33.6 Concent Red Cell Distribution Width 13.3 Platelet Count 228 Mean Platelet Volume 8.9 Neutrophils (%) (Auto) 94.3 Lymphocytes (%) (Auto) 1.1 Monocytes (%) (Auto) 4.2 Eosinophils (%) (Auto) 0.0 Basophils (%) (Auto) 0.4 Neutrophils # (Auto) 30.6 Lymphocytes # (Auto) 0.3 Monocytes # (Auto) 1.4 Eosinophils # (Auto) 0.0 Basophils # (Auto) 0.1 CBC Comment AUTO DIFF Differential Total Cells 100 Counted Neutrophils % (Manual) 87 Band Neutrophils % 6 Monocytes % 5 Neutrophils # (Manual) 30.9 Metamyelocytes 2 Differential Comment FINAL DIFF MANUAL Platelet Estimate NORMAL Platelet Morphology Comment NORMAL Red Cell Morphology Comment NORMAL Sodium Level 140 Potassium Level 3.7 Chloride Level 108 Carbon Dioxide Level 24.4 Anion Gap 8 Blood Urea Nitrogen 27 Creatinine 0.42 Estimat Glomerular Filtration 156 Rate Random Glucose 160 Calcium Level 8.3 Total Bilirubin 0.7 Aspartate Amino Transf 112 (AST/SGOT) Alanine Aminotransferase 285 (ALT/SGPT) Alkaline Phosphatase 62 Total Protein 5.8 Albumin 2.6 Date/Time Procedure Status Source Growth 10/07/16 18:45 Gram Stain - Final Complete Sputum Endotracheal 8/9/17 18:45 Sputum Culture - Final Complete Sputum Endotracheal MODERATE GROWTH NORMAL RESPIRATORY TERRA Imaging Last Impressions Chest X-Ray 10/09/16 0000 Signed Impressions: Service Date/Time: Sunday, October 09, 2016 08:36 - CONCLUSION: Stable chest x-ray with left basilar opacity likely representing pleural effusion with associated airspace consolidation and/or volume loss. Oliver Garcia MD Abdomen X-Ray 10/09/16 0000 Signed Impressions: Service Date/Time: Sunday, October 09, 2016 14:07 - CONCLUSION: Persistent gaseous distention of colon Oliver Harman MD Abdomen/Pelvis CT 10/04/16 0000 Signed Impressions: Service Date/Time: Tuesday, October 04, 2016 16:28 - CONCLUSION: 1. Severe colonic ileus which has increased slightly since October 01 with colon now measuring up to about 9.4 cm in diameter. Air is seen progressing distally into the rectosigmoid. 2. Mild anasarca. 3. Lawson catheter tip in bladder. 4. Mild right basilar airspace disease with dependent atelectasis. Jay Jay Burgess MD Physical Exam HEENT: Normocephalic; atraumatic; no jaundice. CHEST: CTA CARDIAC: RRR ABDOMEN: Soft, nontender, nondistended. Bowel sounds x 4 quadrants. EXTREMITIES: Generalized edema HEALTH POLICY ANALYST: Awake and alert (Kaelyn Mccabe) Assessment and Plan Plan ASSESSMENT - Dysphagia - plan was need for assisted ventilation - Daughter Gisel Hilton was called [phone] 10/09 1529 to discuss PEG, she is hesitant at this time. Patient is s/p extubation 10/10, awake and alert today. - Severe colonic ileus/constipation. s/p rectal exam by CRS with subsequent liquid stool and gas emission S/P Decompressive colonoscopy (10/01/16)--Poor prep colonic decompression- marked improvement, hemorrhoids S/P Decompressive colonoscopy (10/03/16)--> Poor prep, ulcer rectum, internal hemorrhoids decompressive colonoscopy 10/07 ok, air aspirated, no infection or ischemia Abdomen/Pelvis CT (10/04/16)-----> 1. Severe colonic ileus which has increased slightly colon now measuring up to about 9.4 cm in diameter. Air is seen progressing distally into the rectosigmoid. Abdomen X-Ray ()----> Persistent abnormal dilatation of bowel. KUB 8-10 slight improvement, KUB 8/ persistent gaseous distention colon. S/P Enemas, S/P Neostigmine ( 10/04). On TPN at 75 cc/hour with lipids On bowel regimen- Reglan, colace, dulcolax, miralax. +BM, diarrhea - Acute hypercarbic resp failure, acute COPD exacerbation, bronchospasm, vent per [facility] - Leukocytosis. WBC improving. cefepime, flagyl - HTN per attending. Plan: - Continue aggressive bowel regimen - Continue frequent turning of pt to facilitate flatus and stool - NPO - TPN - Monitor labs - Supportive care - Further recommendations to follow based on results of above Patient seen and examined by Dr. Be and myself and this note is written on his behalf. (Kaelyn Mccabe) Physician Comments Patient seen and examined Agree with above Continue with current supportive care Monitor labs Patient currently extubated and more alert and answering her questions appropriately We will check speech therapy for safety of swallowing No PEG tube at this point Abdomen is fairly soft we will continue to monitor the ileus (Santi Be MD) Kaelyn Mccabe Oct 11, 2016 11:26 Santi Be MD Oct 11, 2016 16:25
--- NOTE | 2016-10-11 13:48 | HHI.PR ---
Subjective Remarks 56 YOWF with VDRF, , extubated 10/10 no Fever abd distension decreased., Alert, awake , follows commands On 3LNC NGT to suction Objective Vital Signs Vital Signs Date Time Temp Pulse Resp B/P Pulse Ox O2 Delivery O2 Flow Rate FiO2 10/11/16 12:00 98.0 79 18 137/84 95 10/11/16 12:00 76 10/11/16 10:00 74 10/11/16 08:10 94 Nasal Cannula 3.00 10/11/16 08:00 97.9 78 19 146/71 95 10/11/16 08:00 95 Nasal Cannula 4.00 10/11/16 08:00 80 10/11/16 06:00 84 10/11/16 04:10 97 40 10/11/16 04:00 97.3 65 16 180/82 96 10/11/16 04:00 65 10/11/16 02:00 85 10/11/16 01:30 97 40 10/11/16 00:00 97.6 81 15 164/94 93 10/11/16 00:00 81 10/10/16 22:00 74 10/10/16 20:03 93 Nasal Cannula 2.00 10/10/16 20:00 97.8 78 20 183/97 94 10/10/16 20:00 78 10/10/16 18:00 84 10/10/16 16:00 98.3 72 24 130/70 94 10/10/16 16:00 72 10/10/16 14:50 94 Nasal Cannula 4.00 10/10/16 14:50 94 Nasal Cannula 4 10/10/16 14:00 75 10/10/16 14:00 94 Nasal Cannula 4.00 I/O 10/10/16 10/10/16 10/10/16 10/11/16 10/11/16 10/11/16 06:59 14:59 22:59 06:59 14:59 22:59 Intake Total 953 ml 1508 ml 841 ml 944 ml Output Total 1600 ml 2400 ml 1600 ml 2200 ml Balance -647 ml -892 ml -759 ml -1256 ml IV Total 316 ml 739 ml 304 ml 260 ml TPN/PPN 570 ml 697 ml 473 ml 604 ml Lipid 67 ml 72 ml 64 ml 80 ml Output Urine Total 1600 ml 1900 ml 1600 ml 2000 ml Gastric Drainage Total 500 ml 200 ml # Bowel Movements 1 Result Diagram: 10/11/16 0859 10/11/16 0859 Objective Remarks GENERAL: MBMN WF, on Vent SKIN: Warm and dry. HEAD: Normocephalic. EYES: No scleral icterus. No injection or drainage. NECK: Supple, trachea midline. No JVD or lymphadenopathy. CARDIOVASCULAR: Regular rate and rhythm without murmurs, gallops, or rubs. RESPIRATORY: Breath sounds equal bilaterally. No accessory muscle use. GASTROINTESTINAL: Abdomen soft, non-tender, nondistended. MUSCULOSKELETAL: No cyanosis, or edema. BACK: Nontender without obvious deformity. No CVA tenderness. A/P Assessment and Plan VDRF, s/p extubation 10/10 COPD Exac HTN Nicotine use PLAN Aerosol nebs cont Steroids Wean Fi02 Abx per ID NGT to suction Abdirahman Marquez MD Oct 11, 2016 13:48
[2016-10-11] MEDS: FLUCONAZOLE 400 MG PREMIX BAG 200 ML IV SCH (15:36)
[2016-10-11] MEDS: TIOTROPIUM BROMIDE 18 MCG INH INH SCH (18:02)
[2016-10-11] MEDS: FAT EMULSION 20% INJ 250 ML (@10 mls/hr) IV SCH (22:18)
[2016-10-11] MEDS: CLINIMIX E 4.25/5 2000 mL- >42 mls/hr IV SCH ×3 (22:19)
[2016-10-12] VITALS (21 sets, daily range): BP systolic 137–196; BP diastolic 65–93; PULSE 70–94; RESP 21–28; TEMP 97.8–99.2; O2SAT 94–97
[2016-10-12] MEDS: RESP: ALBUTEROL 2.5 MG/IPRATROPIUM 0.5 MG NEB (SCH) NEB ×7 (01:09→23:26)
[2016-10-12] MEDS: metroNIDAZOLE 500 MG INJ 100 ML IV SCH ×3 (01:33→15:21)
[2016-10-12] MEDS: DILTIAZEM HCL 60 MG TAB PO SCH ×4 (01:33→21:54)
[2016-10-12] MEDS: SODIUM CHLORIDE 0.9% FLUSH 10 ML FLUSH IV FLUSH PRN ×2 (04:03→09:02)
[2016-10-12] MEDS: methylPREDNISolone SOD SUCC 125 MG/2 ML VIAL IV SCH ×2 (04:03→15:22)
[2016-10-12 05:14] LABS: HEMATOCRIT 40.1 % (35.0-46.0); MEAN CELL VOLUME 88.7 FL (80.0-100.0); MEAN CORPUSCULAR HGB CONC 32.7 % (32.0-36.0); PLATELET COUNT 243 TH/MM3 (150-450); RED BLOOD COUNT 4.52 MIL/MM3 (4.00-5.30); RED CELL DISTRIBUTION WIDTH 13.3 % (11.6-17.2); WHITE BLOOD COUNT 33.6 TH/MM3 (4.0-11.0)
[2016-10-12 05:31] LABS: HEMO FLAGS AUTO DIFF
[2016-10-12 05:33] LABS: ALT (GPT) 314 U/L (10-53); ANION GAP 8 MEQ/L (5-15); AST (GOT) 121 U/L (15-37); BICARBONATE 24.9 MEQ/L (21.0-32.0); BLOOD UREA NITROGEN 25 MG/DL (7-18); CHLORIDE 107 MEQ/L (98-107); GLOMERULAR FILTRATION RATE 170 ML/MIN (>89); SODIUM (NA) 140 MEQ/L (136-145)
[2016-10-12 05:35] LABS: ALKALINE PHOSPHATASE 66 U/L (45-117); TOTAL BILIRUBIN ADULT 0.9 MG/DL (0.2-1.0)
[2016-10-12] MEDS: INSULIN NovoLIN REGULAR SUPPLEMENTAL SCALE SQ SCH ×4 (05:36→17:18)
[2016-10-12] MEDS: METOCLOPRAMIDE HCL 10 MG/2 ML VIAL IV PUSH SCH ×3 (05:36→21:55)
[2016-10-12 06:55] LABS: BANDS 1 % (0-6); NEUTROPHIL # MANUAL DIFF 31.9 TH/MM3 (1.8-7.7); PLATELET ESTIMATE SMEAR NORMAL (NORMAL); PLATELET MORPHOLOGY NORMAL (NORMAL); POLYS (SEG NEUTROPHILS) 94 % (16-70); SCAN/DIFF FINAL DIFF MANUAL; WBC DIFF SAMPLE 100
--- NOTE | 2016-10-12 07:33 | HHI.CCPN ---
Subjective Remarks/Hospital Course The patient is a 56-year-old female with past medical history of COPD and hypertension who presented to the [facility] ED with a 2-week history of progressive shortness of breath. In addition, she reports a dry cough and wheezing. The patient denies any constitutional symptoms. In addition she denies any nausea, vomiting, or abdominal pain. No history of orthopnea, PND or edema of lower extremities. She denies any use of oxygen at home; however, she uses nebulizers and is on Symbicort. In the ED the patient was given IV steroids and bronchodilator treatments. She was in the ER last night with the same presentation and after several hours of treatments she was discharged with a prescription for a tapered dose of prednisone. In addition, she was given a new albuterol inhaler. She came back a few hours later in respiratory distress. A chest x-ray from last night showed no acute disease. No laboratory data or blood gases available today; however, ABG from last night on a BiPAP 02/03 with 35% FIO2 showed a pH of 7.37, CO2 40, pAO2 of 105, bicarb 23 and saturation of 96%. 09/26 Patient was intubated yesterday for resp distress sedated with Versed 5mg and low doses Fentanyl and Diprivan. Afebrile. Given 1L NS last night for hypotension 09/27 Patient is sedated with Fentanyl and intubated. Afebrile. Patient was initially placed on PC/AC last night however his ABG showed acute resp acidosis with PH: 7.26,COP2 52 he was placed back on PRVC/AC mode. 09/28 Patient remains sedated with Fentanyl and versed placed on Nimbex overnight. Afebrile. WBC is trending down. 09/29 No events overnight. Sedated and intubated. Hypertensive. 09/30 Patient remains intubated and sedated. Off Nimbex. Afebrile. 10/01: Patient has significant bilateral wheezing. Abdominal distention increasing. No bowel movement since admission. KUB pending. Reduced RR to 14 to avoid air trapping 10/02 No events overnight, sedated with Fentanyl and Versed. Afebrile. s/p colonoscopy yesterday for colonic decompression, rectal tube to suction 10/03: . Plan for decompressive colonoscopy today due to 10.5 cm cecum. Patient is arousable and follows commands. FiO2 35%. Saturations 99%. No bowel movement. Subjective 10/04: Status post expressive colonoscopy yesterday. X-ray revealed 11.7 cm dilated: Today. Bladder pressures around 9-11. This a.m., asynchronous with the ventilator so paralyzed with rocuronium currently on a Nimbex drip. 10/05 Patient remains sedated and intubated in addition he is on Nimbex. Afebrile. 10/06 Patient remains intubated and sedated with Versed and Diprivan , on Nimbex. Afebrile. 10/07: Remains intubated, sedated. Abdomen remains distended. GI planning on decompressive colonoscopy today. Overnight had bowel movement. FiO2 remains high at 60%. Chest x-ray shows left lower lobe consolidation. Start cefepime 2 g IV every 8 hours 10/08 Patient is sedated with Versed and Diprivan. s/p colonoscopy yesterday for colonic decompression. On PRVC with PEEP:8 and 50% FIO2. 10/09 No events overnight. sedated with Diprivan and versed. Afebrile. On PRVC with PEEP: 8, FIO2 45%. 10/10 Patient is sedated with Diprivan and intubated. Did not tolerate CPAP trials yesterday as she became tachypneic. Afebrile. 10/11 Patient s/p extubation yesterday placed on BIPAP overnight. Awake and alert. Afebrile. 10/12 No events overnight. Awake and alert. On 3L oxygen with good sats. Afebrile. Intermittent use of BIPAP overnight. Objective Vital Signs Date Time Temp Pulse Resp B/P Pulse Ox O2 Delivery O2 Flow Rate FiO2 10/12/16 06:00 72 10/12/16 04:00 99.2 26 161/79 95 10/12/16 03:50 Nasal Cannula 3.00 10/12/16 01:15 40 Intake and Output 10/11/16 10/11/16 10/11/16 07:59 15:59 23:59 Intake Total 944 ml 1460 ml 661 ml Output Total 2200 ml 2200 ml 950 ml Balance -1256 ml -740 ml -289 ml Result Diagram: 10/12/16 0452 10/12/16 045 Other Results Laboratory Tests Test 10/11/16 10/12/16 08:59 04:52 White Blood Count 32.5 TH/MM3 33.6 TH/MM3 Red Blood Count 4.67 MIL/MM3 4.52 MIL/MM3 Hemoglobin 13.9 GM/DL 13.1 GM/DL Hematocrit 41.3 % 40.1 % Mean Corpuscular Volume 88.5 FL 88.7 FL Mean Corpuscular Hemoglobin 29.7 PG 29.0 PG Mean Corpuscular Hemoglobin 33.6 % 32.7 % Concent Red Cell Distribution Width 13.3 % 13.3 % Platelet Count 228 TH/MM3 243 TH/MM3 Mean Platelet Volume 8.9 FL 8.8 FL Neutrophils (%) (Auto) 94.3 % % Lymphocytes (%) (Auto) 1.1 % % Monocytes (%) (Auto) 4.2 % % Eosinophils (%) (Auto) 0.0 % % Basophils (%) (Auto) 0.4 % % Neutrophils # (Auto) 30.6 TH/MM3 TH/MM3 Lymphocytes # (Auto) 0.3 TH/MM3 TH/MM3 Monocytes # (Auto) 1.4 TH/MM3 TH/MM3 Eosinophils # (Auto) 0.0 TH/MM3 TH/MM3 Basophils # (Auto) 0.1 TH/MM3 TH/MM3 CBC Comment AUTO DIFF AUTO DIFF Differential Total Cells 100 100 Counted Neutrophils % (Manual) 87 % 94 % Band Neutrophils % 6 % 1 % Monocytes % 5 % 4 % Neutrophils # (Manual) 30.9 TH/MM3 31.9 TH/MM3 Metamyelocytes 2 % Differential Comment FINAL DIFF FINAL DIFF MANUAL MANUAL Platelet Estimate NORMAL NORMAL Platelet Morphology Comment NORMAL NORMAL Red Cell Morphology Comment NORMAL NORMAL Sodium Level 140 MEQ/L 140 MEQ/L Potassium Level 3.7 MEQ/L 4.0 MEQ/L Chloride Level 108 MEQ/L 107 MEQ/L Carbon Dioxide Level 24.4 MEQ/L 24.9 MEQ/L Anion Gap 8 MEQ/L 8 MEQ/L Blood Urea Nitrogen 27 MG/DL 25 MG/DL Creatinine 0.42 MG/DL 0.39 MG/DL Estimat Glomerular Filtration 156 ML/MIN 170 ML/MIN Rate Random Glucose 160 MG/DL 145 MG/DL Calcium Level 8.3 MG/DL 8.3 MG/DL Total Bilirubin 0.7 MG/DL 0.9 MG/DL Aspartate Amino Transf 112 U/L 121 U/L (AST/SGOT) Alanine Aminotransferase 285 U/L 314 U/L (ALT/SGPT) Alkaline Phosphatase 62 U/L 66 U/L Total Protein 5.8 GM/DL 6.0 GM/DL Albumin 2.6 GM/DL 2.6 GM/DL Lymphocytes % 1 % Imaging Last Impressions Chest X-Ray 10/09/16 0000 Signed Impressions: Service Date/Time: Sunday, October 09, 2016 08:36 - CONCLUSION: Stable chest x-ray with left basilar opacity likely representing pleural effusion with associated airspace consolidation and/or volume loss. Oliver Garcia MD Abdomen X-Ray 10/09/16 0000 Signed Impressions: Service Date/Time: Sunday, October 09, 2016 14:07 - CONCLUSION: Persistent gaseous distention of colon Oliver Harman MD Abdomen/Pelvis CT 10/04/16 0000 Signed Impressions: Service Date/Time: Tuesday, October 04, 2016 16:28 - CONCLUSION: 1. Severe colonic ileus which has increased slightly since October 01 with colon now measuring up to about 9.4 cm in diameter. Air is seen progressing distally into the rectosigmoid. 2. Mild anasarca. 3. Lawson catheter tip in bladder. 4. Mild right basilar airspace disease with dependent atelectasis. Jay Jay Burgess MD Objective Remarks GENERAL: Patient is 56 yo lying in bed in NAD SKIN: Warm and dry. HEAD: Normocephalic. EYES: No scleral icterus. No injection or drainage. NECK: Supple, trachea midline. No JVD or lymphadenopathy. CARDIOVASCULAR: Regular rate and rhythm without murmurs, gallops, or rubs. RESPIRATORY: Breath sounds equal bilaterally. No accessory muscle use. GASTROINTESTINAL: Abdomen soft, non-tender, nondistended. MUSCULOSKELETAL: No cyanosis, + edema. Neuro: Awake and alert A/P Assessment and Plan Acute hypercarbic respiratory failure - extubated 10/10 Acute COPD exacerbation. Colonic ileus LLL infiltrate/Probable HCAP Bronchospasm Leukocytosis History of tobacco abuse. Hypertension. Internal hemorrhoids Plan Neuro: Awake and alert, avoid sedatives Pulm:Continue with oxygen and maintain sats > 90%. Bronchodilators, Pulmicort nebulizers q. 12, Spiriva one cap daily. Decrease Solu-Medrol 40mg Q12, Pulm is following- Dr. Marquez, CV: On Cardizem 60mg QID, Monitor HR and BP keep MAP>65mmHg. : Monitor renal function, I/O's and electrolyte replacement as needed. GI: On Protonix 40 mg IV daily. s/p colonoscopy 10/07 for colonic decompression. GI and CRS are following Check KUB today KUB abdomen 10/09: persistent gaseous dilatation of colon KUB abdomen 10/08: Slight distention in gaseous distention of bowel KUB 10/06: Slight decreased bowel dilation. KUB 10/05- persistent abnormal dilation of bowel- on metoclopramide 10 mg IV every 8 hours. s/p colonoscopy 10/01 and 10/03 for colonic decompression -showed internal and external hemorrhoids. Currently on PPN at 75 cc an hour with lipids daily Continue aggressive bowel regimen with docusate sodium, Senokot, polyethylene glycol and lactulose ,Relistor daily ID: On Flagyl, Diflucan, Cefepime switched to Zosyn per ID . Monitor for signs of infections ( Fever, WBC) C-diff PCR-neg Follow up on sputum culture from 10/07 - no growth 10/05 Blood, Urine cx: NGTD 09/27 BC: NGTD 09/26, Sputum cx: normal growth, Urine : NGTD Endo: SSI with accuchecks. Heme: Monitor CBC. GI prophylaxis with Protonix 40 mg daily and DVT prophylaxis with SCDs and Lovenox 40 mg subcu daily. Level 3 Carmita Oconnell MD Oct 12, 2016 07:33
[2016-10-12] MEDS: RESP: BUDESONIDE 0.5 MG/2 ML NEB NEB SCH ×2 (07:44→20:32)
[2016-10-12] MEDS: CHLORHEXIDINE 0.12% (ORAL KIT) 15 ML CUP MT SCH ×4 (08:00→20:00)
--- NOTE | 2016-10-12 08:39 | RADRPT ---
EXAM DATE/TIME: 10/12/2016 07:42 [place] COMPARISON: ABDOMEN KUB ONLY, October 09, 2016, 14:07. INDICATIONS : Ileus. MEDICAL HISTORY : Hypertension. Chronic obstructive pulmonary disease. Asthma. SURGICAL HISTORY : None. ENCOUNTER: Subsequent ACUITY: 2 days PAIN SCORE: 6/10 LOCATION: Bilateral abdomen FINDINGS: Nasogastric tube is across the GE junction. Minimal nonspecific colonic gas is evident. There is no free air or obstruction.. CONCLUSION: Nasogastric tube in good position, probably ileus. Rico Boston MD FACR on October 12, 2016 at 8:37 Board Certified Radiologist. This report was verified electronically.
[2016-10-12] MEDS: BISACODYL 10 MG SUPP RECTAL SCH (09:00)
[2016-10-12] MEDS: DOCUSATE SODIUM 100 MG/10 ML UDC PO SCH ×2 (09:01→21:55)
[2016-10-12] MEDS: POLYETHYLENE GLYCOL 17 GM PKG PEG SCH (09:01)
[2016-10-12] MEDS: CEFEPIME INJ 2,000 MG in SODIUM CHLORIDE 0.9% INJ 100 ML IV SCH (09:02)
[2016-10-12] MEDS: TIOTROPIUM BROMIDE 18 MCG INH INH SCH (09:02)
[2016-10-12] MEDS: SODIUM CHLORIDE 0.9% FLUSH 10 ML FLUSH IV FLUSH SCH ×2 (09:02→21:54)
[2016-10-12] MEDS: PANTOPRAZOLE SODIUM 40 MG VIAL IV PUSH SCH (09:04)
[2016-10-12] MEDS: hydrALAZINE HCL 20 MG/ML VIAL IV PUSH PRN ×2 (09:06→17:18)
--- NOTE | 2016-10-12 09:57 | HHI.IDPN ---
Subjective Subjective Remarks Patient is a 56-year-old female, with known COPD, presented to the hospital complaining of severe and worsening shortness of breath, cough. There was no fever or chills nausea or vomiting, abdominal pain, or any other GI complaints. Her initial chest x-ray was normal. She was admitted for COPD exacerbation, and on her first hospital day her shortness of breath got progressively worse so she ended up getting intubated. Patient has been on the vent since. Her cultures have been negative. She was laced on steroids. She started having problem with significant ileus, and patient has had 2 decompressive colonoscopies done. No abnormalities seen during her colonoscopy , no obstruction, no mass, no pseudomembrane. Since September for her white count started increasing. Patient has been on Zosyn, and Flagyl. Her WBC continues to increase. There is no record of any diarrhea. She has not been febrile. Notes reviewed Temps ok Extubated this weekend On nasal O2 Currently anxious and C/O severe abdominal pain AXR with minimal non-specific gas patter, no free air WBC continues to rise Temps ok Last CXR stable Sputum normal tenisha BC negative BP ok Good UO C diff negative On PPN and lipids No central line Steroid dose being tapered Antibiotics Flagyl Diflucan Cefepime Lines PIV Past Medical History COPD Hypertension Past Surgical History Tubal ligation Allergies: Coded Allergies: No Known Allergies (Unverified , 09/24/16) Objective . Vital Signs Date Time Temp Pulse Resp B/P Pulse Ox O2 Delivery O2 Flow Rate FiO2 10/12/16 08:00 73 10/12/16 08:00 97.8 73 25 190/90 96 10/12/16 07:59 97 Nasal Cannula 3.00 10/12/16 07:00 96 Nasal Cannula 2.00 10/12/16 07:00 70 24 183/88 96 10/12/16 07:00 70 10/12/16 06:00 72 10/12/16 04:00 99.2 70 26 161/79 95 10/12/16 04:00 70 10/12/16 03:50 94 Nasal Cannula 3.00 10/12/16 02:00 72 10/12/16 01:15 96 40 10/12/16 00:00 98.0 81 25 172/81 94 10/12/16 00:00 81 10/11/16 22:00 78 10/11/16 20:20 Nasal Cannula 3.00 10/11/16 20:00 78 10/11/16 20:00 98.1 78 24 164/78 94 10/11/16 19:00 96 Nasal Cannula 2.00 10/11/16 18:00 79 10/11/16 16:00 70 10/11/16 16:00 98.3 80 22 161/77 95 10/11/16 14:00 80 10/11/16 14:00 96 Nasal Cannula 2.00 10/11/16 12:00 98.0 79 18 137/84 95 10/11/16 12:00 76 10/11/16 10:00 74 10/11/16 10/11/16 10/12/16 14:59 22:59 06:59 Intake Total 1460 ml 661 ml 783 ml Output Total 2200 ml 950 ml 1400 ml Balance -740 ml -289 ml -617 ml IV Total 645 ml 195 ml 201 ml TPN/PPN 719 ml 414 ml 513 ml Lipid 96 ml 52 ml 69 ml Output Urine Total 2100 ml 800 ml 1400 ml Gastric Drainage Total 100 ml 150 ml # Bowel Movements 2 1 . Laboratory Tests Test 10/11/16 10/12/16 08:59 04:52 White Blood Count 32.5 TH/MM3 33.6 TH/MM3 Red Blood Count 4.67 MIL/MM3 4.52 MIL/MM3 Hemoglobin 13.9 GM/DL 13.1 GM/DL Hematocrit 41.3 % 40.1 % Mean Corpuscular Volume 88.5 FL 88.7 FL Mean Corpuscular Hemoglobin 29.7 PG 29.0 PG Mean Corpuscular Hemoglobin 33.6 % 32.7 % Concent Red Cell Distribution Width 13.3 % 13.3 % Platelet Count 228 TH/MM3 243 TH/MM3 Mean Platelet Volume 8.9 FL 8.8 FL Neutrophils (%) (Auto) 94.3 % % Lymphocytes (%) (Auto) 1.1 % % Monocytes (%) (Auto) 4.2 % % Eosinophils (%) (Auto) 0.0 % % Basophils (%) (Auto) 0.4 % % Neutrophils # (Auto) 30.6 TH/MM3 TH/MM3 Lymphocytes # (Auto) 0.3 TH/MM3 TH/MM3 Monocytes # (Auto) 1.4 TH/MM3 TH/MM3 Eosinophils # (Auto) 0.0 TH/MM3 TH/MM3 Basophils # (Auto) 0.1 TH/MM3 TH/MM3 CBC Comment AUTO DIFF AUTO DIFF Differential Total Cells 100 100 Counted Neutrophils % (Manual) 87 % 94 % Band Neutrophils % 6 % 1 % Monocytes % 5 % 4 % Neutrophils # (Manual) 30.9 TH/MM3 31.9 TH/MM3 Metamyelocytes 2 % Differential Comment FINAL DIFF FINAL DIFF MANUAL MANUAL Platelet Estimate NORMAL NORMAL Platelet Morphology Comment NORMAL NORMAL Red Cell Morphology Comment NORMAL NORMAL Lymphocytes % 1 % Laboratory Tests Test 10/11/16 10/12/16 08:59 04:52 Sodium Level 140 MEQ/L 140 MEQ/L Potassium Level 3.7 MEQ/L 4.0 MEQ/L Chloride Level 108 MEQ/L 107 MEQ/L Carbon Dioxide Level 24.4 MEQ/L 24.9 MEQ/L Anion Gap 8 MEQ/L 8 MEQ/L Blood Urea Nitrogen 27 MG/DL 25 MG/DL Creatinine 0.42 MG/DL 0.39 MG/DL Estimat Glomerular Filtration 156 ML/MIN 170 ML/MIN Rate Random Glucose 160 MG/DL 145 MG/DL Calcium Level 8.3 MG/DL 8.3 MG/DL Total Bilirubin 0.7 MG/DL 0.9 MG/DL Aspartate Amino Transf 112 U/L 121 U/L (AST/SGOT) Alanine Aminotransferase 285 U/L 314 U/L (ALT/SGPT) Alkaline Phosphatase 62 U/L 66 U/L Total Protein 5.8 GM/DL 6.0 GM/DL Albumin 2.6 GM/DL 2.6 GM/DL Imaging Abdomen X-Ray 10/08/16 0000 Signed Impressions: Service Date/Time: September 08:39 - CONCLUSION: Slight improvement in gaseous distention of bowel Oliver Harman MD Chest X-Ray 10/07/16 0000 Signed Impressions: Service Date/Time: Friday, October 07, 2016 04:36 - CONCLUSION: Left lower lobe consolidation. Todd Ortega MD Abdomen X-Ray 10/06/16 0600 Signed Impressions: Service Date/Time: Thursday, October 06, 2016 03:45 - CONCLUSION: Slight decreased bowel dilatation. Todd Ortega MD Chest X-Ray 10/04/16 0000 Signed Impressions: Service Date/Time: Tuesday, October 04, 2016 09:36 - CONCLUSION: Suspected atelectasis at the right lung base. Otherwise, no acute finding is identified. Oliver Garcia MD Abdomen/Pelvis CT 10/04/16 0000 Signed Impressions: Service Date/Time: Tuesday, October 04, 2016 16:28 - CONCLUSION: 1. Severe colonic ileus which has increased slightly since October 01 with colon now measuring up to about 9.4 cm in diameter. Air is seen progressing distally into the rectosigmoid. 2. Mild anasarca. 3. Lawson catheter tip in bladder. 4. Mild right basilar airspace disease with dependent atelectasis. Jay Jay Burgess MD Physical Exam GENERAL: Awake and alert, anxious and dyspneic, C/O abdominal pain SKIN: Warm and dry. No generalized rash, no ecchymoses HEAD: Atraumatic. Normocephalic. No temporal wasting, or tenderness. EYES: [place] conjunctiva. No petechia or hemorrhage. Pupils equal, round and reactive to light. No scleral icterus. No injection or drainage. EARS, NOSE AND THROAT: Nose without bleeding or purulent nasal discharge. Has NG tube in place NECK: Trachea midline. Supple and not tender, no meningeal signs CARDIOVASCULAR: Regular rate and rhythm. No murmurs, rubs or gallops heard RESPIRATORY: Scattered rhonchi, decreased at abses ABDOMEN: Globular and softer, bowel sounds are hypoactive, diffuse tenderness , no guarding, no rebound. Less tympanitic on percussion EXTREMITIES: No clubbing, cyanosis. Has edema of feet. Warm. NEUROLOGICAL: Non-focal PSYCHIATRIC: Anxious, due to pain, cooperative LINE: No evidence of infection : Lawson in place, urine looks clear Assessment & Plan Remarks IMPRESSION Leukocytosis, etiology to be determined - worsening again - CXR stable, and has good sats on nasal O2 - C/O worsening abdominal pain - likely due to severe ileus - She has been on broad-spectrum antibiotics, cultures have been negative, chest x-ray okay, UA okay Respiratory failure, has L base opacity, ?PNA - S/P extubation 10/10 COPD Ileus, severe, has had 2 decompression - C/O increased abdominal pain - AXR seems less gas - has had multiple decompression - C diff negative RECOMMENDATION Continue Flagyl Continue Diflucan Change Cefepime to Zosyn Consider repeat CT A/P to evaluate worsening abdominal pain Follow CBC Monitor progress Chinyere Atkins MD Oct 12, 2016 09:56 Chinyere Atkins MD Oct 12, 2016 09:56
--- NOTE | 2016-10-12 10:44 | HHI.GIFU ---
Subjective Remarks Resting in bed. C/O of abdominal discomfort, but no n/v. Had bm overnight. Abdomen much improved. Minimal gastric output per nurse. (Jennifer Coleman) Objective Vitals I&O Vital Signs Date Time Temp Pulse Resp B/P Pulse Ox O2 Delivery O2 Flow Rate FiO2 10/12/16 10:00 93 10/12/16 08:00 73 10/12/16 08:00 97.8 73 25 190/90 96 10/12/16 07:59 97 Nasal Cannula 3.00 10/12/16 07:00 96 Nasal Cannula 2.00 10/12/16 07:00 70 24 183/88 96 10/12/16 07:00 70 10/12/16 06:00 72 10/12/16 04:00 99.2 70 26 161/79 95 10/12/16 04:00 70 10/12/16 03:50 94 Nasal Cannula 3.00 10/12/16 02:00 72 10/12/16 01:15 96 40 10/12/16 00:00 98.0 81 25 172/81 94 10/12/16 00:00 81 10/11/16 22:00 78 10/11/16 20:20 Nasal Cannula 3.00 10/11/16 20:00 78 10/11/16 20:00 98.1 78 24 164/78 94 10/11/16 19:00 96 Nasal Cannula 2.00 10/11/16 18:00 79 10/11/16 16:00 70 10/11/16 16:00 98.3 80 22 161/77 95 10/11/16 14:00 80 10/11/16 14:00 96 Nasal Cannula 2.00 10/11/16 12:00 98.0 79 18 137/84 95 10/11/16 12:00 76 I/O 10/11/16 10/11/16 10/11/16 10/12/16 10/12/16 10/12/16 07:00 15:00 23:00 07:00 15:00 23:00 Intake Total 944 ml 1460 ml 661 ml 783 ml Output Total 2200 ml 2200 ml 950 ml 1400 ml Balance -1256 ml -740 ml -289 ml -617 ml IV Total 260 ml 645 ml 195 ml 201 ml TPN/PPN 604 ml 719 ml 414 ml 513 ml Lipid 80 ml 96 ml 52 ml 69 ml Output Urine Total 2000 ml 2100 ml 800 ml 1400 ml Gastric Drainage Total 200 ml 100 ml 150 ml # Bowel Movements 2 1 Laboratory Laboratory Tests Test 10/12/16 04:52 White Blood Count 33.6 Red Blood Count 4.52 Hemoglobin 13.1 Hematocrit 40.1 Mean Corpuscular Volume 88.7 Mean Corpuscular Hemoglobin 29.0 Mean Corpuscular Hemoglobin 32.7 Concent Red Cell Distribution Width 13.3 Platelet Count 243 Mean Platelet Volume 8.8 Neutrophils (%) (Auto) Lymphocytes (%) (Auto) Monocytes (%) (Auto) Eosinophils (%) (Auto) Basophils (%) (Auto) Neutrophils # (Auto) Lymphocytes # (Auto) Monocytes # (Auto) Eosinophils # (Auto) Basophils # (Auto) CBC Comment AUTO DIFF Differential Total Cells 100 Counted Neutrophils % (Manual) 94 Band Neutrophils % 1 Lymphocytes % 1 Monocytes % 4 Neutrophils # (Manual) 31.9 Differential Comment FINAL DIFF MANUAL Platelet Estimate NORMAL Platelet Morphology Comment NORMAL Red Cell Morphology Comment NORMAL Sodium Level 140 Potassium Level 4.0 Chloride Level 107 Carbon Dioxide Level 24.9 Anion Gap 8 Blood Urea Nitrogen 25 Creatinine 0.39 Estimat Glomerular Filtration 170 Rate Random Glucose 145 Calcium Level 8.3 Total Bilirubin 0.9 Aspartate Amino Transf 121 (AST/SGOT) Alanine Aminotransferase 314 (ALT/SGPT) Alkaline Phosphatase 66 Total Protein 6.0 Albumin 2.6 Date/Time Procedure Status Source Growth 10/07/16 18:45 Gram Stain - Final Complete Sputum Endotracheal 10/07/16 18:45 Sputum Culture - Final Complete Sputum Endotracheal MODERATE GROWTH NORMAL RESPIRATORY TERRA Imaging Last Impressions Abdomen X-Ray 10/12/16 0000 Signed Impressions: Service Date/Time: Wednesday, October 12, 2016 07:42 - CONCLUSION: Nasogastric tube in good position, probably ileus. Rico Boston MD FACR Chest X-Ray 10/09/16 0000 Signed Impressions: Service Date/Time: Sunday, October 09, 2016 08:36 - CONCLUSION: Stable chest x-ray with left basilar opacity likely representing pleural effusion with associated airspace consolidation and/or volume loss. Oliver Garcia MD Abdomen/Pelvis CT 10/04/16 0000 Signed Impressions: Service Date/Time: Tuesday, October 04, 2016 16:28 - CONCLUSION: 1. Severe colonic ileus which has increased slightly since October 01 with colon now measuring up to about 9.4 cm in diameter. Air is seen progressing distally into the rectosigmoid. 2. Mild anasarca. 3. Lawson catheter tip in bladder. 4. Mild right basilar airspace disease with dependent atelectasis. Jay Jay Burgess MD Physical Exam HEENT: Normocephalic; atraumatic; no jaundice. CHEST: Resp. even/unlabored, diminished bases. CARDIAC: RRR ABDOMEN: Soft, mildly distended, mild tenderness. Bowel sounds x 4 quadrants. EXTREMITIES: Generalized edema CUSTOMER ASSISTANCE REPRESENTATIVE: Awake and alert (Jennifer Coleman) Assessment and Plan Plan ASSESSMENT - Severe colonic ileus/constipation. S/P Decompressive colonoscopy (10/01/16)-- Poor prep colonic decompression-marked improvement, hemorrhoids S/P Decompressive colonoscopy (10/03/16)--> Poor prep, ulcer rectum, internal hemorrhoids Abdomen/Pelvis CT (10/04/16)-----> 1. Severe colonic ileus which has increased slightly colon now measuring up to about 9.4 cm in diameter. Air is seen progressing distally into the rectosigmoid. Rpt. Decompressive colonoscopy (10/07)---> ok, air aspirated, no infection or ischemia. S/P Enemas, S/P Neostigmine (10/04), S/P Relistor (10/05) . KUB (10/12/16)----> NGT in good position, probable ileus. On bowel regimen- Reglan, colace, dulcolax, miralax. S/P CRS evaluation. Clinically, much improved. Abdomen soft, mildly distended/tender. No n/v. Minimal gastric output from NGT per nurse. (+) BM. Okay for trickle feeds, will also get swallow evaluation and if passes, will start clear liquids and advance as tolerated. - Dysphagia. Swallow evaluation today. Okay for clears if passes, but okay to use all consistencies for evaluation. - Acute hypercarbic resp failure, acute COPD exacerbation, bronchospasm, S/P extubation. - Leukocytosis. WBC 33.6. CDiff negative. cefepime, flagyl - HTN per attending. Plan: - Okay to start trickle feeds, Jevity 1.5 at 10cc/hr - Swallow evaluation, if passes, okay for clears - Cont. TPN for now- will wean once taking adequate po vs. TF at GR. - Monitor labs - Cont. Reglan, Miralax, Colace, - Supportive care - Further recommendations to follow based on results of above - Patient seen and examined by Dr. Be and myself and this note is written on his behalf. (Jennifer Coleman) Physician Comments Patient seen and examined Agree with above Continue with current supportive care Monitor labs (Santi Be MD) Jennifer Coleman Oct 12, 2016 10:44 Santi Be MD Oct 12, 2016 12:19
[2016-10-12] MEDS: PIPERACIL-TAZO 4.5 GM PREMIX 100 ML IV SCH ×3 (11:29→21:55)
[2016-10-12] MEDS: FLUCONAZOLE 400 MG PREMIX BAG 200 ML IV SCH (15:21)
--- NOTE | 2016-10-12 18:49 | HHI.PR ---
Subjective Remarks 56 YOWF with VDRF, , extubated 10/10 no Fever abd distension decreased., Alert, awake , follows commands On 3LNC used CPAP 4 hrs last night Started PO Objective Vital Signs Vital Signs Date Time Temp Pulse Resp B/P Pulse Ox O2 Delivery O2 Flow Rate FiO2 10/12/16 18:00 80 10/12/16 16:00 80 10/12/16 16:00 98.1 80 27 161/84 95 10/12/16 15:00 85 24 155/77 95 10/12/16 15:00 85 10/12/16 14:00 85 10/12/16 13:00 86 10/12/16 12:00 81 10/12/16 12:00 98.3 81 25 143/71 95 10/12/16 11:00 78 23 137/65 95 10/12/16 10:00 93 28 154/77 95 10/12/16 10:00 93 10/12/16 09:00 79 24 196/93 97 10/12/16 08:00 73 10/12/16 08:00 97.8 73 25 190/90 96 10/12/16 07:59 97 Nasal Cannula 3.00 10/12/16 07:00 96 Nasal Cannula 2.00 10/12/16 07:00 70 24 183/88 96 10/12/16 07:00 70 10/12/16 06:00 72 10/12/16 04:00 99.2 70 26 161/79 95 10/12/16 04:00 70 10/12/16 03:50 94 Nasal Cannula 3.00 10/12/16 02:00 72 10/12/16 01:15 96 40 10/12/16 00:00 98.0 81 25 172/81 94 10/12/16 00:00 81 10/11/16 22:00 78 10/11/16 20:20 Nasal Cannula 3.00 10/11/16 20:00 78 10/11/16 20:00 98.1 78 24 164/78 94 10/11/16 19:00 96 Nasal Cannula 2.00 I/O 10/11/16 10/11/16 10/11/16 10/12/16 10/12/16 10/12/16 07:00 15:00 23:00 07:00 15:00 23:00 Intake Total 944 ml 1460 ml 661 ml 783 ml 1006 ml Output Total 2200 ml 2200 ml 950 ml 1400 ml 1100 ml Balance -1256 ml -740 ml -289 ml -617 ml -94 ml IV Total 260 ml 645 ml 195 ml 201 ml 361 ml TPN/PPN 604 ml 719 ml 414 ml 513 ml 569 ml Lipid 80 ml 96 ml 52 ml 69 ml 76 ml Output Urine Total 2000 ml 2100 ml 800 ml 1400 ml 950 ml Gastric Drainage Total 200 ml 100 ml 150 ml 150 ml # Bowel Movements 2 1 0 Result Diagram: 10/12/1645110/12/16451 Objective Remarks GENERAL: MBMN WF, on Vent SKIN: Warm and dry. HEAD: Normocephalic. EYES: No scleral icterus. No injection or drainage. NECK: Supple, trachea midline. No JVD or lymphadenopathy. CARDIOVASCULAR: Regular rate and rhythm without murmurs, gallops, or rubs. RESPIRATORY: Breath sounds equal bilaterally. No accessory muscle use. GASTROINTESTINAL: Abdomen soft, non-tender, nondistended. MUSCULOSKELETAL: No cyanosis, or edema. BACK: Nontender without obvious deformity. No CVA tenderness. A/P Assessment and Plan VDRF, s/p extubation 10/10 COPD Exac HTN Nicotine use PLAN Aerosol nebs cont Steroids Wean Fi02 Abx per ID CPAP prn Encourage PO Abdirahman Marquez MD Oct 12, 2016 18:48
[2016-10-12] MEDS: FAT EMULSION 20% INJ 250 ML (@10 mls/hr) IV SCH (21:55)
[2016-10-12] MEDS: CLINIMIX E 4.25/5 2000 mL- >42 mls/hr IV SCH ×3 (22:09)
[2016-10-13] VITALS (21 sets, daily range): BP systolic 124–171; BP diastolic 58–79; PULSE 77–95; RESP 16–26; TEMP 97.6–98.2; O2SAT 91–100
[2016-10-13] MEDS: metroNIDAZOLE 500 MG INJ 100 ML IV SCH ×3 (01:00→16:20)
[2016-10-13] MEDS: DILTIAZEM HCL 60 MG TAB PO SCH ×4 (02:00→20:00)
[2016-10-13] MEDS: methylPREDNISolone SOD SUCC 125 MG/2 ML VIAL IV SCH (02:35)
[2016-10-13] MEDS ORDERED: ONDANSETRON HCL 4 MG/2 ML VIAL ONE (03:34)
[2016-10-13] MEDS: RESP: ALBUTEROL 2.5 MG/IPRATROPIUM 0.5 MG NEB (SCH) NEB ×6 (04:00→23:24)
[2016-10-13] MEDS: INSULIN NovoLIN REGULAR SUPPLEMENTAL SCALE SQ SCH ×4 (06:00→18:00)
[2016-10-13] MEDS: METOCLOPRAMIDE HCL 10 MG/2 ML VIAL IV PUSH SCH ×2 (06:23→14:00)
[2016-10-13] MEDS: PIPERACIL-TAZO 4.5 GM PREMIX 100 ML IV SCH ×3 (06:24→17:45)
[2016-10-13 06:32] LABS: AUTOMATED NEUTROPHIL # 32.1 TH/MM3 (1.8-7.7); BASOPHIL # 0.1 TH/MM3 (0-0.2); BASOPHIL % 0.3 % (0.0-2.0); EOSINOPHIL % 0.1 % (0.0-4.0); HEMATOCRIT 41.4 % (35.0-46.0); LYMPH % 2.3 % (9.0-44.0); LYMPHOCYTE # 0.8 TH/MM3 (1.0-4.8); MEAN CORPUSCULAR HGB CONC 33.7 % (32.0-36.0); MONO % 7.2 % (0.0-8.0); NEUT % 90.1 % (16.0-70.0); PLATELET COUNT 235 TH/MM3 (150-450); RED BLOOD COUNT 4.65 MIL/MM3 (4.00-5.30); RED CELL DISTRIBUTION WIDTH 13.5 % (11.6-17.2); WHITE BLOOD COUNT 35.6 TH/MM3 (4.0-11.0)
[2016-10-13 06:43] LABS: HEMO FLAGS AUTO DIFF
[2016-10-13 07:02] LABS: BICARBONATE 24.2 MEQ/L (21.0-32.0)
[2016-10-13 07:04] LABS: POTASSIUM 4.5 MEQ/L (3.5-5.1)
[2016-10-13] MEDS: CHLORHEXIDINE 0.12% (ORAL KIT) 15 ML CUP MT SCH ×2 (07:17)
[2016-10-13] MEDS: RESP: BUDESONIDE 0.5 MG/2 ML NEB NEB SCH ×2 (07:34→20:00)
[2016-10-13] MEDS: BISACODYL 10 MG SUPP RECTAL SCH (07:51)
[2016-10-13 07:52] LABS: BANDS 12 % (0-6); MYELOCYTES 1 % (0-0); NEUTROPHIL # MANUAL DIFF 33.5 TH/MM3 (1.8-7.7); POLYS (SEG NEUTROPHILS) 81 % (16-70); WBC DIFF SAMPLE 100
[2016-10-13] MEDS: DOCUSATE SODIUM 100 MG/10 ML UDC PO SCH (07:52)
[2016-10-13] MEDS: hydrALAZINE HCL 20 MG/ML VIAL IV PUSH PRN (07:52)
[2016-10-13] MEDS: PANTOPRAZOLE SODIUM 40 MG VIAL IV PUSH SCH (07:52)
[2016-10-13] MEDS: TIOTROPIUM BROMIDE 18 MCG INH INH SCH (07:52)
[2016-10-13] MEDS: POLYETHYLENE GLYCOL 17 GM PKG PEG SCH (07:52)
[2016-10-13] MEDS: SODIUM CHLORIDE 0.9% FLUSH 10 ML FLUSH IV FLUSH PRN (07:53)
[2016-10-13] MEDS: SODIUM CHLORIDE 0.9% FLUSH 10 ML FLUSH IV FLUSH SCH ×2 (07:53→21:00)
[2016-10-13 07:54] LABS: PLATELET ESTIMATE SMEAR NORMAL (NORMAL); PLATELET MORPHOLOGY NORMAL (NORMAL); SCAN/DIFF FINAL DIFF MANUAL
--- NOTE | 2016-10-13 10:29 | HHI.CCPN ---
Subjective Remarks/Hospital Course The patient is a 56-year-old female with past medical history of COPD and hypertension who presented to the [facility] ED with a 2-week history of progressive shortness of breath. In addition, she reports a dry cough and wheezing. The patient denies any constitutional symptoms. In addition she denies any nausea, vomiting, or abdominal pain. No history of orthopnea, PND or edema of lower extremities. She denies any use of oxygen at home; however, she uses nebulizers and is on Symbicort. In the ED the patient was given IV steroids and bronchodilator treatments. She was in the ER last night with the same presentation and after several hours of treatments she was discharged with a prescription for a tapered dose of prednisone. In addition, she was given a new albuterol inhaler. She came back a few hours later in respiratory distress. A chest x-ray from last night showed no acute disease. No laboratory data or blood gases available today; however, ABG from last night on a BiPAP 02/03 with 35% FIO2 showed a pH of 7.37, CO2 40, pAO2 of 105, bicarb 23 and saturation of 96%. 09/26 Patient was intubated yesterday for resp distress sedated with Versed 5mg and low doses Fentanyl and Diprivan. Afebrile. Given 1L NS last night for hypotension 09/27 Patient is sedated with Fentanyl and intubated. Afebrile. Patient was initially placed on PC/AC last night however his ABG showed acute resp acidosis with PH: 7.26,COP2 52 he was placed back on PRVC/AC mode. 09/28 Patient remains sedated with Fentanyl and versed placed on Nimbex overnight. Afebrile. WBC is trending down. 09/29 No events overnight. Sedated and intubated. Hypertensive. 09/30 Patient remains intubated and sedated. Off Nimbex. Afebrile. 10/01: Patient has significant bilateral wheezing. Abdominal distention increasing. No bowel movement since admission. KUB pending. Reduced RR to 14 to avoid air trapping 10/02 No events overnight, sedated with Fentanyl and Versed. Afebrile. s/p colonoscopy yesterday for colonic decompression, rectal tube to suction 10/03: . Plan for decompressive colonoscopy today due to 10.5 cm cecum. Patient is arousable and follows commands. FiO2 35%. Saturations 99%. No bowel movement. Subjective 10/04: Status post expressive colonoscopy yesterday. X-ray revealed 11.7 cm dilated: Today. Bladder pressures around 9-11. This a.m., asynchronous with the ventilator so paralyzed with rocuronium currently on a Nimbex drip. 10/05 Patient remains sedated and intubated in addition he is on Nimbex. Afebrile. 10/06 Patient remains intubated and sedated with Versed and Diprivan , on Nimbex. Afebrile. 10/07: Remains intubated, sedated. Abdomen remains distended. GI planning on decompressive colonoscopy today. Overnight had bowel movement. FiO2 remains high at 60%. Chest x-ray shows left lower lobe consolidation. Start cefepime 2 g IV every 8 hours 10/08 Patient is sedated with Versed and Diprivan. s/p colonoscopy yesterday for colonic decompression. On PRVC with PEEP:8 and 50% FIO2. 10/09 No events overnight. sedated with Diprivan and versed. Afebrile. On PRVC with PEEP: 8, FIO2 45%. 10/10 Patient is sedated with Diprivan and intubated. Did not tolerate CPAP trials yesterday as she became tachypneic. Afebrile. 10/11 Patient s/p extubation yesterday placed on BIPAP overnight. Awake and alert. Afebrile. 10/12 No events overnight. Awake and alert. On 3L oxygen with good sats. Afebrile. Intermittent use of BIPAP overnight. 10/13 Patient reports abdominal discomfort denies any N/V. On 2L. Afebrile. Objective Vital Signs Date Time Temp Pulse Resp B/P Pulse Ox O2 Delivery O2 Flow Rate FiO2 10/13/16 08:00 97.6 80 16 139/70 93 10/13/16 07:35 Nasal Cannula 2.00 10/12/16 01:15 40 Intake and Output 10/12/16 10/12/16 10/12/16 07:59 15:59 23:59 Intake Total 783 ml 1006 ml 1051 ml Output Total 1400 ml 1100 ml 1350 ml Balance -617 ml -94 ml -299 ml Result Diagram: 10/13/16 0546 10/13/16 0546 Other Results Laboratory Tests Test 10/13/16 05:46 White Blood Count 35.6 TH/MM3 Red Blood Count 4.65 MIL/MM3 Hemoglobin 13.9 GM/DL Hematocrit 41.4 % Mean Corpuscular Volume 89.0 FL Mean Corpuscular Hemoglobin 30.0 PG Mean Corpuscular Hemoglobin 33.7 % Concent Red Cell Distribution Width 13.5 % Platelet Count 235 TH/MM3 Mean Platelet Volume 9.8 FL Neutrophils (%) (Auto) 90.1 % Lymphocytes (%) (Auto) 2.3 % Monocytes (%) (Auto) 7.2 % Eosinophils (%) (Auto) 0.1 % Basophils (%) (Auto) 0.3 % Neutrophils # (Auto) 32.1 TH/MM3 Lymphocytes # (Auto) 0.8 TH/MM3 Monocytes # (Auto) 2.6 TH/MM3 Eosinophils # (Auto) 0.0 TH/MM3 Basophils # (Auto) 0.1 TH/MM3 CBC Comment AUTO DIFF Differential Total Cells 100 Counted Neutrophils % (Manual) 81 % Band Neutrophils % 12 % Lymphocytes % 3 % Monocytes % 3 % Neutrophils # (Manual) 33.5 TH/MM3 Myelocytes 1 % Differential Comment FINAL DIFF MANUAL Platelet Estimate NORMAL Platelet Morphology Comment NORMAL Red Cell Morphology Comment NORMAL Sodium Level 135 MEQ/L Potassium Level 4.5 MEQ/L Chloride Level 104 MEQ/L Carbon Dioxide Level 24.2 MEQ/L Anion Gap 7 MEQ/L Blood Urea Nitrogen 27 MG/DL Creatinine 0.33 MG/DL Estimat Glomerular Filtration 206 ML/MIN Rate Random Glucose 102 MG/DL Calcium Level 8.1 MG/DL Imaging Last Impressions Abdomen X-Ray 10/12/16 0000 Signed Impressions: Service Date/Time: Wednesday, October 12, 2016 07:42 - CONCLUSION: Nasogastric tube in good position, probably ileus. Rico Boston MD FACR Chest X-Ray 10/09/16 0000 Signed Impressions: Service Date/Time: Sunday, October 09, 2016 08:36 - CONCLUSION: Stable chest x-ray with left basilar opacity likely representing pleural effusion with associated airspace consolidation and/or volume loss. Oliver Garcia MD Abdomen/Pelvis CT 10/04/16 0000 Signed Impressions: Service Date/Time: Tuesday, October 04, 2016 16:28 - CONCLUSION: 1. Severe colonic ileus which has increased slightly since October 01 with colon now measuring up to about 9.4 cm in diameter. Air is seen progressing distally into the rectosigmoid. 2. Mild anasarca. 3. Lawson catheter tip in bladder. 4. Mild right basilar airspace disease with dependent atelectasis. Jay Jay Burgess MD Objective Remarks GENERAL: Patient is 56 yo lying in bed in NAD SKIN: Warm and dry. HEAD: Normocephalic. EYES: No scleral icterus. No injection or drainage. NECK: Supple, trachea midline. No JVD or lymphadenopathy. CARDIOVASCULAR: Regular rate and rhythm without murmurs, gallops, or rubs. RESPIRATORY: Breath sounds equal bilaterally. No accessory muscle use. GASTROINTESTINAL: Abdomen soft, non-tender, nondistended. MUSCULOSKELETAL: No cyanosis, + edema. Neuro: Awake and alert A/P Assessment and Plan Acute hypercarbic respiratory failure - extubated 10/10 Acute COPD exacerbation. Colonic ileus LLL infiltrate/Probable HCAP Bronchospasm Leukocytosis History of tobacco abuse. Hypertension. Internal hemorrhoids Plan Neuro: Awake and alert, avoid sedatives Pulm:Continue with oxygen and maintain sats > 90%. Bronchodilators, Pulmicort nebulizers q. 12, Spiriva one cap daily. Solu-Medrol 40mg Q12, Pulm is following- Dr. Marquez, Check CXR CV: On Cardizem 60mg QID, add Hydralazine 50mg Q8, Monitor HR and BP keep MAP> 65mmHg. : Monitor renal function, I/O's and electrolyte replacement as needed. GI: On Protonix 40 mg IV daily. On PPN at 75 cc an hour with lipids daily. Started on trickle feeds- Jevity 1.5@10ml/hr per GI. Will repeat CT abdomen/pelvis today for abdp pain wand worsening leukocytosis KUB 10/12: Probable ileus s/p colonoscopy 10/07 for colonic decompression. GI and CRS are following KUB abdomen 10/09: persistent gaseous dilatation of colon KUB abdomen 10/08: Slight distention in gaseous distention of bowel KUB 10/06: Slight decreased bowel dilation. KUB 10/05- persistent abnormal dilation of bowel- on metoclopramide 10 mg IV every 8 hours. s/p colonoscopy 10/01 and 10/03 for colonic decompression -showed internal and external hemorrhoids. Continue aggressive bowel regimen with docusate sodium, Senokot, polyethylene glycol and lactulose ,Relistor daily ID: On Flagyl, Diflucan, Zosyn per ID . Monitor for signs of infections ( Fever , WBC) C-diff PCR-neg Follow up on sputum culture from 10/07 - no growth 10/05 Blood, Urine cx: NGTD 09/27 BC: NGTD 09/26, Sputum cx: normal growth, Urine : NGTD Endo: SSI with accuchecks. Heme: Monitor CBC. GI prophylaxis with Protonix 40 mg daily and DVT prophylaxis with SCDs, Lovenox 40 mg subcu on hold Level 3 Carmita Oconnell MD Oct 13, 2016 10:29
[2016-10-13] MEDS ORDERED: DIATRIZOATE MEGLUM/DIATRIZOATE SOD 9 ML CUP PO ONE (11:30)
--- NOTE | 2016-10-13 11:54 | RADRPT ---
EXAM DATE/TIME: 10/13/2016 10:37 [facility] COMPARISON: ABDOMEN KUB ONLY, October 12, 2016, 7:42. CHEST SINGLE AP, October 09, 2016, 8:36. INDICATIONS : Short of breath, upper abdominal pain MEDICAL HISTORY : Chronic obstructive pulmonary disease. SURGICAL HISTORY : None. ENCOUNTER: Subsequent ACUITY: 2 weeks PAIN SCORE: 7/10 LOCATION: Bilateral chest FINDINGS: There is questionable free intraperitoneal air beneath the right hemidiaphragm. Clinical correlation is recommended to rule out perforated viscus. Patchiness is noted within the left lung base consisten t with possible pneumonia and/or atelectasis. A nasogastric has tip in the stomach. The pulmonary vas cular pattern is normal. The right lung is clear. CONCLUSION: 1. Questionable free intraperitoneal air beneath the right hemidiaphragm. Clinical correlation is rec ommended to rule out perforated viscus. 2. Left basilar patchiness consistent with pneumonia and/or atelectasis. The floor nurse was called with findings of the examination at 11:49 AM on 10/13/16. Ivan Shepherd MD on October 13, 2016 at 11:45 Board Certified Radiologist. This report was verified electronically.
[2016-10-13] MEDS ORDERED: ePHEDrine/NS 25 MG/5 ML SYR IV ONE (12:00)
[2016-10-13] MEDS ORDERED: ONDANSETRON HCL 4 MG/2 ML VIAL IV PUSH ONE (12:00)
[2016-10-13] MEDS ORDERED: NORMOSOL R INJ 1,000 ML IV ONE (12:00)
[2016-10-13] MEDS ORDERED: NEOSTIGMINE 3 MG/3 ML SYR IV ONE (12:00)
[2016-10-13] MEDS ORDERED: PHENYLEPH/NS 1000 MCG/10 ML SYR IV ONE (12:00)
[2016-10-13] MEDS ORDERED: PROPOFOL 200 MG/20 ML AMP IV ONE (12:00)
[2016-10-13] MEDS ORDERED: IOHEXOL 350 MG/ML 10 ML VIAL (for RAD DIAG) IV ONE (13:27)
--- NOTE | 2016-10-13 13:37 | RADRPT ---
EXAM DATE/TIME: 10/13/2016 13:13 [facility] COMPARISON: CHEST SINGLE AP, October 13, 2016, 10:37. CT ABDOMEN & PELVIS W CONTRAST, October 04, 2016, 16:28. INDICATIONS : Questionable free air seen on chest xray. IV CONTRAST: 94 cc Omnipaque 350 (iohexol) IV ORAL CONTRAST: No oral contrast ingested. RADIATION DOSE: 11.49 CTDIvol (mGy) MEDICAL HISTORY : Hypertension. Chronic obstructive pulmonary disease. SURGICAL HISTORY : None. ENCOUNTER: Initial ACUITY: 1 day PAIN SCALE: 6/10 LOCATION: abdomen TECHNIQUE: Volumetric scanning of the abdomen and pelvis was performed. Using automated exposure control and ad justment of the mA and/or kV according to patient size, radiation dose was kept as low as reasonably achievable to obtain optimal diagnostic quality images. DICOM format image data is available electro nically for review and comparison. FINDINGS: Free intraperitoneal air is seen. LOWER LUNGS: There is a focal are of increased density seen in the medial left lower lobe which appears new. This likely represents an area of consolidation or atelectasis. LIVER: Homogeneous density without lesion. There is no dilation of the biliary tree. No calcified gallston es. SPLEEN: Normal size without lesion. PANCREAS: No focal pancreatic lesion is seen. There does appear be induration of the fat around the pancreas. KIDNEYS: Normal in size and shape. There is no mass, stone or hydronephrosis. ADRENAL GLANDS: Within normal limits. VASCULAR: There is no aortic aneurysm. BOWEL/MESENTERY: Again noted is the free intraperitoneal air. The patient is patient previously had a distended colon with pneumatosis at the distal ascending colon. There now is thickening of the distal ascending colon and proximal transverse colon. There scattered diverticula in the sigmoid region. ABDOMINAL WALL: Within normal limits. RETROPERITONEUM: There is no lymphadenopathy. BLADDER: There is a Lawson catheter in place. Air is seen within the urinary bladder. REPRODUCTIVE: Within normal limits. INGUINAL: There is no lymphadenopathy or hernia. MUSCULOSKELETAL: Within normal limits for patient age. CONCLUSION: 1. Pneumoperitoneum likely from the hepatic flexure region of the colon. Pneumatosis was seen in this region on the prior exam. This area now appears thickened. 2. Induration around the pancreas concerning for pancreatitis. 3. New consolidation or atelectasis at the medial left lung base. Oliver Soria MD on October 13, 2016 at 13:30 Board Certified Radiologist. This report was verified electronically.
[2016-10-13] MEDS: hydrALAZINE HCL 50 MG TAB PO SCH ×2 (14:00→22:00)
[2016-10-13] MEDS: FLUCONAZOLE 400 MG PREMIX BAG 200 ML IV SCH (14:12)
--- NOTE | 2016-10-13 14:29 | HHI.IDPN ---
Subjective Subjective Remarks Patient is a 56-year-old female, with known COPD, presented to the hospital complaining of severe and worsening shortness of breath, cough. There was no fever or chills nausea or vomiting, abdominal pain, or any other GI complaints. Her initial chest x-ray was normal. She was admitted for COPD exacerbation, and on her first hospital day her shortness of breath got progressively worse so she ended up getting intubated. Patient has been on the vent since. Her cultures have been negative. She was laced on steroids. She started having problem with significant ileus, and patient has had 2 decompressive colonoscopies done. No abnormalities seen during her colonoscopy , no obstruction, no mass, no pseudomembrane. Since September for her white count started increasing. Patient has been on Zosyn, and Flagyl. Her WBC continues to increase. There is no record of any diarrhea. She has not been febrile. Notes reviewed D/W RN Continues with abdominal pain WBC rising CT A/P with free air, and pnuematosis CRS evaluating for OR Temps ok BP ok On nasal O2 Antibiotics Flagyl Diflucan Zosyn Lines PIV Past Medical History COPD Hypertension Past Surgical History Tubal ligation Allergies: Coded Allergies: No Known Allergies (Unverified , 09/24/16) Objective . Vital Signs Date Time Temp Pulse Resp B/P Pulse Ox O2 Delivery O2 Flow Rate FiO2 10/13/16 12:00 79 10/13/16 12:00 97.9 79 24 135/67 92 10/13/16 11:00 85 25 136/66 92 10/13/16 11:00 85 10/13/16 10:00 87 25 127/60 92 10/13/16 10:00 87 10/13/16 09:00 95 26 131/61 91 10/13/16 08:00 97.6 80 16 139/70 93 10/13/16 08:00 80 10/13/16 07:35 95 Nasal Cannula 2.00 10/13/16 07:00 87 10/13/16 07:00 93 Room Air 10/13/16 07:00 87 25 163/77 95 10/13/16 06:00 86 10/13/16 04:00 90 10/13/16 04:00 98.2 90 24 171/79 94 10/13/16 02:00 86 10/13/16 00:00 77 10/13/16 00:00 98.0 77 21 160/76 96 10/12/16 22:00 91 10/12/16 20:33 94 Nasal Cannula 2.00 10/12/16 20:00 98.4 94 21 155/74 94 10/12/16 20:00 92 10/12/16 19:00 94 Nasal Cannula 2.00 10/12/16 18:00 80 10/12/16 16:00 80 10/12/16 16:00 98.1 80 27 161/84 95 10/12/16 15:00 85 24 155/77 95 10/12/16 15:00 85 10/12/16 10/12/16 10/13/16 15:00 23:00 07:00 Intake Total 1006 ml 1051 ml 784 ml Output Total 1100 ml 1350 ml 1100 ml Balance -94 ml -299 ml -316 ml Intake Oral 0 ml 0 ml IV Total 361 ml 377 ml 136 ml Tube Feeding 48 ml TPN/PPN 569 ml 556 ml 572 ml Lipid 76 ml 70 ml 76 ml Output Urine Total 950 ml 1350 ml 1100 ml Gastric Drainage Total 150 ml Tube Feeding Residual Discard 0 ml # Bowel Movements 0 0 1 . Laboratory Tests Test 10/12/16 10/13/16 04:52 05:46 White Blood Count 33.6 TH/MM3 35.6 TH/MM3 Red Blood Count 4.52 MIL/MM3 4.65 MIL/MM3 Hemoglobin 13.1 GM/DL 13.9 GM/DL Hematocrit 40.1 % 41.4 % Mean Corpuscular Volume 88.7 FL 89.0 FL Mean Corpuscular Hemoglobin 29.0 PG 30.0 PG Mean Corpuscular Hemoglobin 32.7 % 33.7 % Concent Red Cell Distribution Width 13.3 % 13.5 % Platelet Count 243 TH/MM3 235 TH/MM3 Mean Platelet Volume 8.8 FL 9.8 FL Neutrophils (%) (Auto) % 90.1 % Lymphocytes (%) (Auto) % 2.3 % Monocytes (%) (Auto) % 7.2 % Eosinophils (%) (Auto) % 0.1 % Basophils (%) (Auto) % 0.3 % Neutrophils # (Auto) TH/MM3 32.1 TH/MM3 Lymphocytes # (Auto) TH/MM3 0.8 TH/MM3 Monocytes # (Auto) TH/MM3 2.6 TH/MM3 Eosinophils # (Auto) TH/MM3 0.0 TH/MM3 Basophils # (Auto) TH/MM3 0.1 TH/MM3 CBC Comment AUTO DIFF AUTO DIFF Differential Total Cells 100 100 Counted Neutrophils % (Manual) 94 % 81 % Band Neutrophils % 1 % 12 % Lymphocytes % 1 % 3 % Monocytes % 4 % 3 % Neutrophils # (Manual) 31.9 TH/MM3 33.5 TH/MM3 Differential Comment FINAL DIFF FINAL DIFF MANUAL MANUAL Platelet Estimate NORMAL NORMAL Platelet Morphology Comment NORMAL NORMAL Red Cell Morphology Comment NORMAL NORMAL Myelocytes 1 % Laboratory Tests Test 10/12/16 10/13/16 04:52 05:46 Sodium Level 140 MEQ/L 135 MEQ/L Potassium Level 4.0 MEQ/L 4.5 MEQ/L Chloride Level 107 MEQ/L 104 MEQ/L Carbon Dioxide Level 24.9 MEQ/L 24.2 MEQ/L Anion Gap 8 MEQ/L 7 MEQ/L Blood Urea Nitrogen 25 MG/DL 27 MG/DL Creatinine 0.39 MG/DL 0.33 MG/DL Estimat Glomerular Filtration 170 ML/MIN 206 ML/MIN Rate Random Glucose 145 MG/DL 102 MG/DL Calcium Level 8.3 MG/DL 8.1 MG/DL Total Bilirubin 0.9 MG/DL Aspartate Amino Transf 121 U/L (AST/SGOT) Alanine Aminotransferase 314 U/L (ALT/SGPT) Alkaline Phosphatase 66 U/L Total Protein 6.0 GM/DL Albumin 2.6 GM/DL Microbiology Date/Time Procedure Status Source Growth 10/12/16 14:30 Aerobic Blood Culture - Preliminary Resulted Blood Peripheral NO GROWTH IN 1 DAY 10/12/16 14:30 Anaerobic Blood Culture - Preliminary Resulted Blood Peripheral NO GROWTH IN 1 DAY 10/12/16 14:49 Aerobic Blood Culture - Preliminary Resulted Blood Peripheral NO GROWTH IN 1 DAY 10/12/16 14:49 Anaerobic Blood Culture - Preliminary Resulted Blood Peripheral NO GROWTH IN 1 DAY Imaging Abdomen X-Ray 10/08/16 0000 Signed Impressions: Service Date/Time: September 08:39 - CONCLUSION: Slight improvement in gaseous distention of bowel Oliver Harman MD Chest X-Ray 10/07/16 0000 Signed Impressions: Service Date/Time: Friday, October 07, 2016 04:36 - CONCLUSION: Left lower lobe consolidation. Todd Ortega MD Abdomen X-Ray 10/06/16 0600 Signed Impressions: Service Date/Time: Thursday, October 06, 2016 03:45 - CONCLUSION: Slight decreased bowel dilatation. Todd Ortega MD Chest X-Ray 10/04/16 0000 Signed Impressions: Service Date/Time: Tuesday, October 04, 2016 09:36 - CONCLUSION: Suspected atelectasis at the right lung base. Otherwise, no acute finding is identified. Oliver Garcia MD Abdomen/Pelvis CT 10/04/16 0000 Signed Impressions: Service Date/Time: Tuesday, October 04, 2016 16:28 - CONCLUSION: 1. Severe colonic ileus which has increased slightly since October 01 with colon now measuring up to about 9.4 cm in diameter. Air is seen progressing distally into the rectosigmoid. 2. Mild anasarca. 3. Lawson catheter tip in bladder. 4. Mild right basilar airspace disease with dependent atelectasis. Jay Jay Burgess MD Physical Exam GENERAL: Awake and alert, anxious and dyspneic, C/O abdominal pain SKIN: Warm and dry. No generalized rash, no ecchymoses HEAD: Atraumatic. Normocephalic. No temporal wasting, or tenderness. EYES: [place] conjunctiva. No petechia or hemorrhage. Pupils equal, round and reactive to light. No scleral icterus. No injection or drainage. EARS, NOSE AND THROAT: Nose without bleeding or purulent nasal discharge. Has NG tube in place NECK: Trachea midline. Supple and not tender, no meningeal signs CARDIOVASCULAR: Regular rate and rhythm. No murmurs, rubs or gallops heard RESPIRATORY: Coarse BS bilaterally ABDOMEN: Globular and same distension as yesterday, diffuse tenderness, no guarding. Less tympanitic on percussion EXTREMITIES: No clubbing, cyanosis. Has edema of feet. Warm. NEUROLOGICAL: Non-focal PSYCHIATRIC: Anxious, due to pain, cooperative LINE: No evidence of infection : Lawson in place, urine looks clear Assessment & Plan Remarks IMPRESSION Leukocytosis, due to intraabdominal process - worsening again - CXR stable, and has good sats on nasal O2 - C/O worsening abdominal pain - likely due to severe ileus - She has been on broad-spectrum antibiotics, cultures have been negative, chest x-ray ok, UA okay Respiratory failure, has L base opacity, ?PNA - S/P extubation 10/10 COPD Ileus, severe, has had 2 decompression - C/O increased abdominal pain - AXR seems less gas - has had multiple decompression - C diff negative Pneumoperitoneum RECOMMENDATION Continue Flagyl Continue Diflucan Continue Zosyn Add IV Vanco CRS evaluating patient for OR Follow CBC Monitor progress D/W Chinyere Macias MD Oct 13, 2016 14:29
[2016-10-13] MEDS ORDERED: VANCOMYCIN INJ 1,000 MG in SODIUM CHLOR 0.9% 250 ML INJ 250 ML IV ONE (14:30)
[2016-10-13] MEDS ORDERED: Vancomycin Consult Pharmacy 1 EA OTHER SCH (14:30)
[2016-10-13 15:01] LABS: INTERNATIONAL NORMALIZED RATIO 0.9 RATIO; PROTHROMBIN TIME - PATIENT 9.9 SEC (9.8-11.6)
--- NOTE | 2016-10-13 15:11 | HHI.GIFU ---
Subjective Remarks Had worsening distention, pain this am with leukocytosis/bandemia. CT with pneumoperitoneum likely from the hepatic flexure region of the colon. CRS aware and is taking patient to the OR today. (Jennifer Coleman) Objective Vitals I&O Vital Signs Date Time Temp Pulse Resp B/P Pulse Ox O2 Delivery O2 Flow Rate FiO2 10/13/16 12:00 79 10/13/16 12:00 97.9 79 24 135/67 92 10/13/16 11:00 85 25 136/66 92 10/13/16 11:00 85 10/13/16 10:00 87 25 127/60 92 10/13/16 10:00 87 10/13/16 09:00 95 26 131/61 91 10/13/16 08:00 97.6 80 16 139/70 93 10/13/16 08:00 80 10/13/16 07:35 95 Nasal Cannula 2.00 10/13/16 07:00 87 10/13/16 07:00 93 Room Air 10/13/16 07:00 87 25 163/77 95 10/13/16 06:00 86 10/13/16 04:00 90 10/13/16 04:00 98.2 90 24 171/79 94 10/13/16 02:00 86 10/13/16 00:00 77 10/13/16 00:00 98.0 77 21 160/76 96 10/12/16 22:00 91 10/12/16 20:33 94 Nasal Cannula 2.00 10/12/16 20:00 98.4 94 21 155/74 94 10/12/16 20:00 92 10/12/16 19:00 94 Nasal Cannula 2.00 10/12/16 18:00 80 10/12/16 16:00 80 10/12/16 16:00 98.1 80 27 161/84 95 I/O 10/12/16 10/12/16 10/12/16 10/13/16 10/13/16 10/13/16 07:00 15:00 23:00 07:00 15:00 23:00 Intake Total 783 ml 1006 ml 1051 ml 784 ml 1036 ml Output Total 1400 ml 1100 ml 1350 ml 1100 ml 600 ml Balance -617 ml -94 ml -299 ml -316 ml 436 ml Intake Oral 0 ml 0 ml 0 ml IV Total 201 ml 361 ml 377 ml 136 ml 356 ml Tube Feeding 48 ml 53 ml TPN/PPN 513 ml 569 ml 556 ml 572 ml 553 ml Lipid 69 ml 76 ml 70 ml 76 ml 74 ml Output Urine Total 1400 ml 950 ml 1350 ml 1100 ml 600 ml Gastric Drainage Total 150 ml Tube Feeding Residual Discard 0 ml # Bowel Movements 0 0 1 0 Laboratory Laboratory Tests Test 10/13/16 05:46 White Blood Count 35.6 Red Blood Count 4.65 Hemoglobin 13.9 Hematocrit 41.4 Mean Corpuscular Volume 89.0 Mean Corpuscular Hemoglobin 30.0 Mean Corpuscular Hemoglobin 33.7 Concent Red Cell Distribution Width 13.5 Platelet Count 235 Mean Platelet Volume 9.8 Neutrophils (%) (Auto) 90.1 Lymphocytes (%) (Auto) 2.3 Monocytes (%) (Auto) 7.2 Eosinophils (%) (Auto) 0.1 Basophils (%) (Auto) 0.3 Neutrophils # (Auto) 32.1 Lymphocytes # (Auto) 0.8 Monocytes # (Auto) 2.6 Eosinophils # (Auto) 0.0 Basophils # (Auto) 0.1 CBC Comment AUTO DIFF Differential Total Cells 100 Counted Neutrophils % (Manual) 81 Band Neutrophils % 12 Lymphocytes % 3 Monocytes % 3 Neutrophils # (Manual) 33.5 Myelocytes 1 Differential Comment FINAL DIFF MANUAL Platelet Estimate NORMAL Platelet Morphology Comment NORMAL Red Cell Morphology Comment NORMAL Sodium Level 135 Potassium Level 4.5 Chloride Level 104 Carbon Dioxide Level 24.2 Anion Gap 7 Blood Urea Nitrogen 27 Creatinine 0.33 Estimat Glomerular Filtration 206 Rate Random Glucose 102 Calcium Level 8.1 Date/Time Procedure Status Source Growth 10/12/16 14:49 Aerobic Blood Culture - Preliminary Resulted Blood Peripheral NO GROWTH IN 1 DAY 10/12/16 14:49 Anaerobic Blood Culture - Preliminary Resulted Blood Peripheral NO GROWTH IN 1 DAY Imaging Last Impressions Chest X-Ray 10/13/16 0000 Signed Impressions: Service Date/Time: Thursday, October 13, 2016 10:37 - CONCLUSION: 1. Questionable free intraperitoneal air beneath the right hemidiaphragm. Clinical correlation is recommended to rule out perforated viscus. 2. Left basilar patchiness consistent with pneumonia and/or atelectasis. The floor nurse was called with findings of the examination at 11:49 AM on 10/13/16. Ivan Shepherd MD Abdomen/Pelvis CT 10/13/16 0000 Signed Impressions: Service Date/Time: Thursday, October 13, 2016 13:13 - CONCLUSION: 1. Pneumoperitoneum likely from the hepatic flexure region of the colon. Pneumatosis was seen in this region on the prior exam. This area now appears thickened. 2. Induration around the pancreas concerning for pancreatitis. 3. New consolidation or atelectasis at the medial left lung base. Oliver Soria MD Abdomen X-Ray 10/12/16 0000 Signed Impressions: Service Date/Time: Wednesday, October 12, 2016 07:42 - CONCLUSION: Nasogastric tube in good position, probably ileus. Rico Boston MD FACR Physical Exam HEENT: Normocephalic; atraumatic; no jaundice. CHEST: Resp. even/unlabored, diminished bases. CARDIAC: RRR ABDOMEN: Soft, moderately distended- more than yesterday, mild diffuse tenderness. Bowel sounds are active. NGT to LIWS. EXTREMITIES: Generalized edema CRISIS SPECIALIST: Awake and alert (Jennifer Coleman) Assessment and Plan Plan ASSESSMENT - Pneumoperitoneum. Abdomen/Pelvis CT (10/13/16)----> 1. Pneumoperitoneum likely from the hepatic flexure region of the colon. Pneumatosis was seen in this region on the prior exam. This area now appears thickened. 2. Induration around the pancreas concerning for pancreatitis. 3. New consolidation or atelectasis at the medial left lung base. WBC 35.6, now with bandemia. NGT to LIWS. Zosyn, Vanco, Diflucan. Clinically more distended, remains soft, diffuse tenderness. CRS following and is planning on taking patient to OR today. - Severe colonic ileus/constipation. S/P Decompressive colonoscopy (10/01/16)-- Poor prep colonic decompression-marked improvement, hemorrhoids S/P Decompressive colonoscopy (10/03/16)--> Poor prep, ulcer rectum, internal hemorrhoids Abdomen/Pelvis CT (10/04/16)-----> 1. Severe colonic ileus which has increased slightly colon now measuring up to about 9.4 cm in diameter. Air is seen progressing distally into the rectosigmoid. Rpt. Decompressive colonoscopy (10/07)---> ok, air aspirated, no infection or ischemia. S/P Enemas, S/P Neostigmine (10/04), S/P Relistor (10/05) . KUB (10/12/16)----> NGT in good position, probable ileus. On bowel regimen- Reglan, colace, dulcolax, miralax. S/P CRS evaluation. Clinically, she was much improved yesterday and she was started on trickle feeds. However, she had worsening distention/tenderness today with questionable free air on CXR. CT as above, pneumoperitoneum likely from the hepatic flexure region of the colon. Pneumatosis was seen in this region on the prior exam. This area now appears thickened. 2. Induration around the pancreas concerning for pancreatitis. NPO. NGT to LIWS. Going to OR today. - Dysphagia. NPO, going to OR. - Acute hypercarbic resp failure, acute COPD exacerbation, bronchospasm, S/P extubation. - Leukocytosis. WBC 35.6, bandemia. CT with pneumoperitoneum. CDiff negative. Zosyn, Vanco, Diflucan. - HTN per attending. Plan: - NPO - NGT to LIWS - Cont. Abx per ID recommendations- Zosyn, Vanco, Diflucan. - TPN - Monitor labs - Supportive care - CRS following, going to OR this afternoon - Further recommendations to follow based on results of above - Patient seen and examined by Dr. Be and myself and this note is written on his behalf. (Jennifer Coleman) Physician Comments Patient seen and examined Agree with above Continue current supportive care Monitor labs Not much to add from a GI perspective at this point in time We will sign off ,reconsult as needed (Santi Be MD) Jennifer Coleman Oct 13, 2016 15:11 Santi Be MD Oct 13, 2016 19:29
[2016-10-13] MEDS ORDERED: MIDAZOLAM HCL 2 MG/2 ML VIAL ONE (17:05)
[2016-10-13] MEDS ORDERED: HYDROmorphone HCL PF 2 MG/ML VIAL ONE (17:05)
[2016-10-13] MEDS ORDERED: fentaNYL CITRATE 250 MCG/5 ML AMP ONE (17:05)
[2016-10-13] MEDS ORDERED: SUGAMMADEX SODIUM 200 MG/2 ML VIAL IV PUSH ONE ×2 (17:05)
[2016-10-13] MEDS ORDERED: ACETAMINOPHEN 1000 MG/100 ML VIAL IV ONE (17:06)
[2016-10-13] MEDS ORDERED: VANCOMYCIN 500 MG VIAL ONE (18:32)
[2016-10-13] MEDS ORDERED: VANCOMYCIN HCL 1000 MG VIAL ONE (18:35)
--- NOTE | 2016-10-13 18:56 | HHI.PR ---
Immediate Post Op Note Procedure Date: Oct 13, 2016 Pre Op Diagnosis: Pneumoperitoneum Post Op Diagnosis: Same, colonic ileus, serosal splits Surgeon: Victor Manuel Yo Runner On(s): Chaim Procedure: Exploratory laparotomy, decompress colon, ileostomy, repair serosal splits Findings: Free air, mult serosal splits in cecum, transv colon, cloudy fluid in abd liver, GB nl duod normal pancr very hard head Complications: None Specimen(s) removed: none Estimated blood loss: 50cc Anesthesia: General Drains: None IVF Patient to: PACU Patient Condition: Good Victor Manuel Yo MD Oct 13, 2016 18:56
[2016-10-13] MEDS: SODIUM CHLOR 0.9% 1000 ML INJ 1,000 ML IV SCH (19:00)
[2016-10-13] MEDS ORDERED: DO NOT ADM ANY ANTICOAGULANT DRUGS PRN (19:00)
[2016-10-13] MEDS ORDERED: PROPOFOL 1000 MG/100 ML INJ 100 ML ONE (19:06)
--- NOTE | 2016-10-13 19:42 | RADRPT ---
EXAM DATE/TIME: 10/13/2016 19:05 [facility] COMPARISON: CHEST SINGLE AP, October 13, 2016, 10:37. INDICATIONS : ET tube placement. MEDICAL HISTORY : Chronic obstructive pulmonary disease. SURGICAL HISTORY : None. ENCOUNTER: Subsequent ACUITY: 3 weeks PAIN SCORE: 0/10 LOCATION: Bilateral chest FINDINGS: The patient is now intubated. The endotracheal tube tip is approximately 16 mm above the joel. Naso gastric tube remains in place, courses into the stomach. Mild left retrocardiac consolidation again noted. No large effusion. No evidence of pneumothorax. Heart size stable, within normal limits. CONCLUSION: 1. Endotracheal tube tip is approximate 16 mm above the joel. 2. Unchanged nasogastric tube, courses into the stomach. 3. Unchanged mild left base consolidation. Oliver Potter MD on October 13, 2016 at 19:40 Board Certified Radiologist. This report was verified electronically.
[2016-10-13] MEDS: CLINIMIX E 4.25/5 2000 mL- >42 mls/hr IV SCH ×3 (20:00)
[2016-10-13] MEDS: FAT EMULSION 20% INJ 250 ML (@10 mls/hr) IV SCH (20:00)
[2016-10-13] MEDS ORDERED: SODIUM CHLORID 0.9% 500 ML IV PRN (20:15)
[2016-10-13] MEDS ORDERED: METOPROLOL TARTRATE 25 MG TAB PO PRN (20:15)
[2016-10-13] MEDS ORDERED: POVIDONE IODINE 5% (ANTISEPSIS KIT) 4 APPLICATIONS EACH NARE PRN (20:15)
[2016-10-13] MEDS ORDERED: LACTATED RINGER'S 1000 ML IV PRN (20:15)
[2016-10-13] MEDS ORDERED: PROPOFOL 1000 MG/100 ML IV SCH (20:15)
[2016-10-13] MEDS ORDERED: CHLORHEXIDINE GLUCONATE 2 % 1 PACK (2 CLOTHS) TOPICAL PRN (20:15)
[2016-10-13] MEDS ORDERED: INSULIN HUMAN REGULAR 1,000 UNITS/10 ML VIAL SQ PRN (20:15)
[2016-10-13 20:21] LABS: BLOOD GAS CARBOXYHEMOGLOBIN 1.4 % (0-4); BLOOD GAS HCO3 21 mmol/L (22-26); BLOOD GAS METHEMOGLOBIN 1.2 % (0-2); BLOOD GAS O2 HGB SATURATION 97 % (90-100); BLOOD GAS OXYGEN CONTENT 16.7 Vol % (12.0-20.0); BLOOD GAS PCO2 35 mmHg (38-42); BLOOD GAS PO2 173 mmHg (61-120); CRITICAL VALUE NO; OXYGEN DEVICE VENTILATOR; TEMP CORR TO 98.6
[2016-10-13 20:22] LABS: DRAW SITE ART LINE; FIO2 70 %; STAT NO; VENT SETTINGS AC/10/500/PEEP8
[2016-10-14] VITALS (18 sets, daily range): BP systolic 124–155; BP diastolic 55–68; PULSE 75–93; RESP 17–24; TEMP 98.8–100.3; O2SAT 93–100
[2016-10-14] MEDS ORDERED: MORPHINE SULFATE 4 MG/ML INJ ONE (00:27)
[2016-10-14] MEDS ORDERED: diphenhydrAMINE HCL 50 MG/ML VIAL ONE (00:27)
--- NOTE | 2016-10-14 00:33 | EKG ---
Date Performed: 10/13/2016 Time Performed: 16:24:42 PTAGE: 56 years EKG: Sinus rhythm WITH SHORT WY INTERVAL POSSIBLE LEFT ATRIAL ENLARGEMENT BORDERLINE ECG PREVIOUS TRACING : 09/24/2016 20.49 Compared to the previous tracing, rate has decreased DOCTOR: Red Ramos Interpretating Date/Time 10/14/2016 00:32:22
[2016-10-14] MEDS: metroNIDAZOLE 500 MG INJ 100 ML IV SCH ×2 (01:00→08:30)
[2016-10-14] MEDS: DILTIAZEM HCL 60 MG TAB PO SCH ×4 (01:59→20:06)
[2016-10-14] MEDS: RESP: ALBUTEROL 2.5 MG/IPRATROPIUM 0.5 MG NEB (SCH) NEB ×3 (03:39→11:24)
[2016-10-14] MEDS: methylPREDNISolone SOD SUCC 125 MG/2 ML VIAL IV SCH (04:00)
[2016-10-14] MEDS: SODIUM CHLOR 0.9% 1000 ML INJ 1,000 ML IV SCH (05:00)
[2016-10-14 05:27] LABS: AUTOMATED NEUTROPHIL # 28.2 TH/MM3 (1.8-7.7); BASOPHIL # 0.3 TH/MM3 (0-0.2); BASOPHIL % 0.9 % (0.0-2.0); EOSINOPHIL % 0.1 % (0.0-4.0); HEMATOCRIT 35.4 % (35.0-46.0); HEMO FLAGS DIFF FINAL; LYMPHOCYTE # 0.3 TH/MM3 (1.0-4.8); MEAN CELL VOLUME 89.2 FL (80.0-100.0); MEAN CORPUSCULAR HEMOGLOBIN 29.8 PG (27.0-34.0); MEAN CORPUSCULAR HGB CONC 33.4 % (32.0-36.0); MONO % 3.3 % (0.0-8.0); NEUT % 94.7 % (16.0-70.0); PLATELET COUNT 188 TH/MM3 (150-450); RED BLOOD COUNT 3.97 MIL/MM3 (4.00-5.30); RED CELL DISTRIBUTION WIDTH 13.3 % (11.6-17.2); WHITE BLOOD COUNT 29.7 TH/MM3 (4.0-11.0)
[2016-10-14] MEDS: PIPERACIL-TAZO 4.5 GM PREMIX 100 ML IV SCH ×5 (05:47→22:24)
[2016-10-14 05:52] LABS: ALT (GPT) 362 U/L (10-53); AMYLASE 95 U/L (25-115); ANION GAP 6 MEQ/L (5-15); AST (GOT) 142 U/L (15-37); BICARBONATE 26.4 MEQ/L (21.0-32.0); BLOOD UREA NITROGEN 21 MG/DL (7-18); CHLORIDE 105 MEQ/L (98-107); GLOMERULAR FILTRATION RATE 239 ML/MIN (>89); MAGNESIUM 2.1 MG/DL (1.5-2.5); POTASSIUM 4.4 MEQ/L (3.5-5.1); SODIUM (NA) 137 MEQ/L (136-145)
[2016-10-14] MEDS: hydrALAZINE HCL 50 MG TAB PO SCH ×3 (05:53→22:24)
[2016-10-14 05:54] LABS: ALKALINE PHOSPHATASE 64 U/L (45-117); TOTAL BILIRUBIN ADULT 0.7 MG/DL (0.2-1.0)
[2016-10-14] MEDS: INSULIN NovoLIN REGULAR SUPPLEMENTAL SCALE SQ SCH ×4 (05:54→23:56)
[2016-10-14] MEDS: VANCOMYCIN INJ 1,500 MG in SODIUM CHLORID 0.9% 500 ML INJ 500 ML IV SCH ×2 (06:18→17:04)
[2016-10-14] MEDS: RESP: BUDESONIDE 0.5 MG/2 ML NEB NEB SCH ×2 (07:48→19:33)
[2016-10-14] MEDS: PANTOPRAZOLE SODIUM 40 MG VIAL IV PUSH SCH (08:29)
[2016-10-14] MEDS: CHLORHEXIDINE 0.12% (ORAL KIT) 15 ML CUP MT SCH ×2 (08:29→20:00)
[2016-10-14] MEDS: TIOTROPIUM BROMIDE 18 MCG INH INH SCH (08:30)
[2016-10-14] MEDS: SODIUM CHLORIDE 0.9% FLUSH 10 ML FLUSH IV FLUSH SCH ×2 (08:30→20:18)
--- NOTE | 2016-10-14 10:00 | HHI.PR ---
Subjective Remarks C/R Surg POD #1 afebrile, VSS UO good still on vent - weaning Objective - Vital Signs Date Time Temp Pulse Resp B/P Pulse Ox O2 Delivery O2 Flow Rate FiO2 10/14/16 08:00 98.8 85 17 141/68 99 10/14/16 08:00 50 10/14/16 02:00 Mechanical Ventilator 10/13/16 07:35 2.00 Result Diagram: 10/14/16 0445 10/14/16 0445 Objective Remarks PE on vent Abd - lg, soft, mild tympany, no mass stoma pink A/P Assessment and Plan Imp: recent pneumoperitoneum wean as radha restart tube feeds PT Victor Manuel Yo MD Oct 14, 2016 09:59
[2016-10-14] MEDS: ALBUMIN HUMAN 25% 25 GM/100 ML BAGP IV SCH (10:27)
--- NOTE | 2016-10-14 10:54 | HHI.IDPN ---
Subjective Subjective Remarks Patient is a 56-year-old female, with known COPD, presented to the hospital complaining of severe and worsening shortness of breath, cough. There was no fever or chills nausea or vomiting, abdominal pain, or any other GI complaints. Her initial chest x-ray was normal. She was admitted for COPD exacerbation, and on her first hospital day her shortness of breath got progressively worse so she ended up getting intubated. Patient has been on the vent since. Her cultures have been negative. She was laced on steroids. She started having problem with significant ileus, and patient has had 2 decompressive colonoscopies done. No abnormalities seen during her colonoscopy , no obstruction, no mass, no pseudomembrane. Since September for her white count started increasing. Patient has been on Zosyn, and Flagyl. Her WBC continues to increase. There is no record of any diarrhea. She has not been febrile. Notes reviewed D/W RN Had surgery yesterday: Exploratory laparotomy, decompress colon, ileostomy, repair serosal splits Temps low grade BP ok, not on pressors On CPAP Awake and alert, NAD Mild abdominal pain WBC lower Antibiotics Flagyl Diflucan Zosyn Vancomycin Lines PIV Past Medical History COPD Hypertension Past Surgical History Tubal ligation Allergies: Coded Allergies: No Known Allergies (Unverified , 09/24/16) Objective . Vital Signs Date Time Temp Pulse Resp B/P Pulse Ox O2 Delivery O2 Flow Rate FiO2 10/14/16 10:00 82 10/14/16 08:00 98.8 85 17 141/68 99 10/14/16 08:00 50 10/14/16 08:00 82 10/14/16 07:48 99 50 10/14/16 07:48 50 10/14/16 06:00 124/63 10/14/16 06:00 88 10/14/16 04:08 98 50 10/14/16 04:00 50 10/14/16 04:00 100.3 93 24 132/67 96 10/14/16 04:00 89 10/14/16 03:50 100 100 10/14/16 03:42 100 50 10/14/16 02:20 16 10/14/16 02:00 126/62 10/14/16 02:00 86 16 113/59 100 Mechanical Ventilator 60 8/15/17 23:00 124/67 10/13/16 23:00 71 17 115/60 100 Mechanical Ventilator 60 10/13/16 22:00 133/64 10/13/16 22:00 67 16 121/61 100 Mechanical Ventilator 60 10/13/16 21:30 69 15 115/63 100 Mechanical Ventilator 60 10/13/16 21:00 68 15 113/63 100 Mechanical Ventilator 60 10/13/16 21:00 135/66 10/13/16 20:45 66 15 124/62 100 Mechanical Ventilator 60 10/13/16 20:30 66 15 107/59 100 Mechanical Ventilator 60 10/13/16 20:30 131/59 10/13/16 20:15 73 15 114/67 100 Mechanical Ventilator 60 10/13/16 20:00 131/59 10/13/16 20:00 78 17 119/65 100 Mechanical Ventilator 70 10/13/16 19:45 81 17 114/67 100 Mechanical Ventilator 70 10/13/16 19:30 159/66 10/13/16 19:30 87 16 113/63 100 Mechanical Ventilator 70 10/13/16 19:15 88 16 116/60 100 Mechanical Ventilator 70 10/13/16 19:10 100 70 10/13/16 19:00 100 70 10/13/16 19:00 97.9 80 13 126/59 100 Mechanical Ventilator 70 10/13/16 19:00 140/58 10/13/16 14:00 85 10/13/16 13:00 81 10/13/16 12:00 79 10/13/16 12:00 97.9 79 24 135/67 92 10/13/16 11:00 85 25 136/66 92 10/13/16 11:00 85 10/13/16 10/13/16 10/14/16 15:00 23:00 07:00 Intake Total 1036 ml 2270 ml 2129 ml Output Total 600 ml 1365 ml 1865 ml Balance 436 ml 905 ml 264 ml Intake Oral 0 ml IV Total 356 ml 100 ml 1844 ml Tube Feeding 53 ml TPN/PPN 553 ml 150 ml 225 ml Lipid 74 ml 20 ml 60 ml Other 2000 ml Output Urine Total 600 ml 1340 ml 1865 ml Estimated Blood Loss 25 ml # Bowel Movements 0 0 . Laboratory Tests Test 10/13/16 10/14/16 05:46 04:45 White Blood Count 35.6 TH/MM3 29.7 TH/MM3 Red Blood Count 4.65 MIL/MM3 3.97 MIL/MM3 Hemoglobin 13.9 GM/DL 11.8 GM/DL Hematocrit 41.4 % 35.4 % Mean Corpuscular Volume 89.0 FL 89.2 FL Mean Corpuscular Hemoglobin 30.0 PG 29.8 PG Mean Corpuscular Hemoglobin 33.7 % 33.4 % Concent Red Cell Distribution Width 13.5 % 13.3 % Platelet Count 235 TH/MM3 188 TH/MM3 Mean Platelet Volume 9.8 FL 9.9 FL Neutrophils (%) (Auto) 90.1 % 94.7 % Lymphocytes (%) (Auto) 2.3 % 1.0 % Monocytes (%) (Auto) 7.2 % 3.3 % Eosinophils (%) (Auto) 0.1 % 0.1 % Basophils (%) (Auto) 0.3 % 0.9 % Neutrophils # (Auto) 32.1 TH/MM3 28.2 TH/MM3 Lymphocytes # (Auto) 0.8 TH/MM3 0.3 TH/MM3 Monocytes # (Auto) 2.6 TH/MM3 1.0 TH/MM3 Eosinophils # (Auto) 0.0 TH/MM3 0.0 TH/MM3 Basophils # (Auto) 0.1 TH/MM3 0.3 TH/MM3 CBC Comment AUTO DIFF DIFF FINAL Differential Total Cells 100 Counted Neutrophils % (Manual) 81 % Band Neutrophils % 12 % Lymphocytes % 3 % Monocytes % 3 % Neutrophils # (Manual) 33.5 TH/MM3 Myelocytes 1 % Differential Comment FINAL DIFF MANUAL Platelet Estimate NORMAL Platelet Morphology Comment NORMAL Red Cell Morphology Comment NORMAL Laboratory Tests Test 10/13/16 10/14/16 05:46 04:45 Sodium Level 135 MEQ/L 137 MEQ/L Potassium Level 4.5 MEQ/L 4.4 MEQ/L Chloride Level 104 MEQ/L 105 MEQ/L Carbon Dioxide Level 24.2 MEQ/L 26.4 MEQ/L Anion Gap 7 MEQ/L 6 MEQ/L Blood Urea Nitrogen 27 MG/DL 21 MG/DL Creatinine 0.33 MG/DL 0.29 MG/DL Estimat Glomerular Filtration 206 ML/MIN 239 ML/MIN Rate Random Glucose 102 MG/DL 113 MG/DL Calcium Level 8.1 MG/DL 7.6 MG/DL Phosphorus Level 2.5 MG/DL Magnesium Level 2.1 MG/DL Total Bilirubin 0.7 MG/DL Aspartate Amino Transf 142 U/L (AST/SGOT) Alanine Aminotransferase 362 U/L (ALT/SGPT) Alkaline Phosphatase 64 U/L Total Protein 5.1 GM/DL Albumin 1.9 GM/DL Amylase Level 95 U/L Lipase 315 U/L Microbiology Date/Time Procedure Status Source Growth 10/12/16 14:30 Aerobic Blood Culture - Preliminary Resulted Blood Peripheral NO GROWTH IN 1 DAY 10/12/16 14:30 Anaerobic Blood Culture - Preliminary Resulted Blood Peripheral NO GROWTH IN 1 DAY 10/12/16 14:49 Aerobic Blood Culture - Preliminary Resulted Blood Peripheral NO GROWTH IN 1 DAY 10/12/16 14:49 Anaerobic Blood Culture - Preliminary Resulted Blood Peripheral NO GROWTH IN 1 DAY Imaging Abdomen X-Ray 10/08/16 0000 Signed Impressions: Service Date/Time: September 08:39 - CONCLUSION: Slight improvement in gaseous distention of bowel Oliver Harman MD Chest X-Ray 10/07/16 0000 Signed Impressions: Service Date/Time: Friday, October 07, 2016 04:36 - CONCLUSION: Left lower lobe consolidation. Todd Ortega MD Abdomen X-Ray 10/06/16 0600 Signed Impressions: Service Date/Time: Thursday, October 06, 2016 03:45 - CONCLUSION: Slight decreased bowel dilatation. Todd Ortega MD Chest X-Ray 10/04/16 0000 Signed Impressions: Service Date/Time: Tuesday, October 04, 2016 09:36 - CONCLUSION: Suspected atelectasis at the right lung base. Otherwise, no acute finding is identified. Oliver Garcia MD Abdomen/Pelvis CT 10/04/16 0000 Signed Impressions: Service Date/Time: Tuesday, October 04, 2016 16:28 - CONCLUSION: 1. Severe colonic ileus which has increased slightly since October 01 with colon now measuring up to about 9.4 cm in diameter. Air is seen progressing distally into the rectosigmoid. 2. Mild anasarca. 3. Lawson catheter tip in bladder. 4. Mild right basilar airspace disease with dependent atelectasis. Jay Jay Burgess MD Physical Exam GENERAL: Awake and alert, on CPAP, NAD SKIN: Warm and dry. No generalized rash, no ecchymoses HEAD: Atraumatic. Normocephalic. No temporal wasting, or tenderness. EYES: [place] conjunctiva. No petechia or hemorrhage. Pupils equal, round and reactive to light. No scleral icterus. No injection or drainage. EARS, NOSE AND THROAT: Nose without bleeding or purulent nasal discharge. Has NG tube in place NECK: Trachea midline. Supple and not tender, no meningeal signs CARDIOVASCULAR: Regular rate and rhythm. No murmurs, rubs or gallops heard RESPIRATORY: Scattered rhonchi, decreased at bases ABDOMEN: Globular and softer, bowel sounds are hypoactive, tender on R, dry midline incision, with ileostomy EXTREMITIES: No clubbing, cyanosis. Has edema of feet. Warm. NEUROLOGICAL: Non-focal PSYCHIATRIC: cooperative LINE: No evidence of infection : Lawson in place, urine looks clear Assessment & Plan Remarks IMPRESSION Leukocytosis, due to intraabdominal process - S/P lap Respiratory failure, has L base opacity, ?PNA - S/P extubation 10/10 COPD Ileus, severe, has had 2 decompression - C/O increased abdominal pain - AXR seems less gas - has had multiple decompression - C diff negative Respiratory failure post op RECOMMENDATION Stop Flagyl Continue Diflucan Continue Zosyn Continue IV Vanco Follow CBC Monitor progress Weaning per CCM D/W Chinyere Macias MD Oct 14, 2016 10:54
--- NOTE | 2016-10-14 12:20 | HHI.CCPN ---
Subjective Remarks/Hospital Course The patient is a 56-year-old female with past medical history of COPD and hypertension who presented to the [facility] ED with a 2-week history of progressive shortness of breath. In addition, she reports a dry cough and wheezing. The patient denies any constitutional symptoms. In addition she denies any nausea, vomiting, or abdominal pain. No history of orthopnea, PND or edema of lower extremities. She denies any use of oxygen at home; however, she uses nebulizers and is on Symbicort. In the ED the patient was given IV steroids and bronchodilator treatments. She was in the ER last night with the same presentation and after several hours of treatments she was discharged with a prescription for a tapered dose of prednisone. In addition, she was given a new albuterol inhaler. She came back a few hours later in respiratory distress. A chest x-ray from last night showed no acute disease. No laboratory data or blood gases available today; however, ABG from last night on a BiPAP 02/03 with 35% FIO2 showed a pH of 7.37, CO2 40, pAO2 of 105, bicarb 23 and saturation of 96%. 09/26 Patient was intubated yesterday for resp distress sedated with Versed 5mg and low doses Fentanyl and Diprivan. Afebrile. Given 1L NS last night for hypotension 09/27 Patient is sedated with Fentanyl and intubated. Afebrile. Patient was initially placed on PC/AC last night however his ABG showed acute resp acidosis with PH: 7.26,COP2 52 he was placed back on PRVC/AC mode. 09/28 Patient remains sedated with Fentanyl and versed placed on Nimbex overnight. Afebrile. WBC is trending down. 09/29 No events overnight. Sedated and intubated. Hypertensive. 09/30 Patient remains intubated and sedated. Off Nimbex. Afebrile. 10/01: Patient has significant bilateral wheezing. Abdominal distention increasing. No bowel movement since admission. KUB pending. Reduced RR to 14 to avoid air trapping 10/02 No events overnight, sedated with Fentanyl and Versed. Afebrile. s/p colonoscopy yesterday for colonic decompression, rectal tube to suction 10/03: . Plan for decompressive colonoscopy today due to 10.5 cm cecum. Patient is arousable and follows commands. FiO2 35%. Saturations 99%. No bowel movement. Subjective 10/04: Status post expressive colonoscopy yesterday. X-ray revealed 11.7 cm dilated: Today. Bladder pressures around 9-11. This a.m., asynchronous with the ventilator so paralyzed with rocuronium currently on a Nimbex drip. 10/05 Patient remains sedated and intubated in addition he is on Nimbex. Afebrile. 10/06 Patient remains intubated and sedated with Versed and Diprivan , on Nimbex. Afebrile. 10/07: Remains intubated, sedated. Abdomen remains distended. GI planning on decompressive colonoscopy today. Overnight had bowel movement. FiO2 remains high at 60%. Chest x-ray shows left lower lobe consolidation. Start cefepime 2 g IV every 8 hours 10/08 Patient is sedated with Versed and Diprivan. s/p colonoscopy yesterday for colonic decompression. On PRVC with PEEP:8 and 50% FIO2. 10/09 No events overnight. sedated with Diprivan and versed. Afebrile. On PRVC with PEEP: 8, FIO2 45%. 10/10 Patient is sedated with Diprivan and intubated. Did not tolerate CPAP trials yesterday as she became tachypneic. Afebrile. 10/11 Patient s/p extubation yesterday placed on BIPAP overnight. Awake and alert. Afebrile. 10/12 No events overnight. Awake and alert. On 3L oxygen with good sats. Afebrile. Intermittent use of BIPAP overnight. 10/13 Patient reports abdominal discomfort denies any N/V. On 2L. Afebrile. 10/14: Tolerating CPAP, will progress to extubation. Warm, well perfused. Objective Vital Signs Date Time Temp Pulse Resp B/P Pulse Ox O2 Delivery O2 Flow Rate FiO2 10/14/16 12:00 98.8 85 17 141/68 99 10/14/16 12:00 40 10/14/16 02:00 Mechanical Ventilator 10/13/16 07:35 2.00 Intake and Output 10/13/16 10/13/16 10/14/16 08:00 16:00 00:00 Intake Total 784 ml 1036 ml 2270 ml Output Total 1100 ml 600 ml 1865 ml Balance -316 ml 436 ml 405 ml Result Diagram: 10/14/16 0445 10/14/16 0445 Other Results Laboratory Tests Test 10/13/16 20:04 Blood Gas Puncture Site ART LINE Blood Gas Patient Temperature 98.6 Blood Gas HCO3 21 mmol/L (22-26) Blood Gas Base Excess -3.0 mmol/L (-2-2) Blood Gas Oxygen Saturation 97 % (90-100) Arterial Blood pH 7.40 (7.380-7.420) Arterial Blood Partial 35 mmHg (38-42) Pressure CO2 Arterial Blood Partial 173 mmHg Pressure O2 (61-120) Arterial Blood Oxygen Content 16.7 Vol % (12.0-20.0) Arterial Blood 1.4 % (0-4) Carboxyhemoglobin Arterial Blood Methemoglobin 1.2 % (0-2) Blood Gas Hemoglobin 12.0 G/DL (12.0-16.0) Oxygen Delivery Device VENTILATOR Blood Gas Ventilator Setting AC/10/500/PEEP8 Blood Gas Inspired Oxygen 70 % Imaging Last Impressions Abdomen X-Ray 10/12/16 0000 Signed Impressions: Service Date/Time: Wednesday, October 12, 2016 07:42 - CONCLUSION: Nasogastric tube in good position, probably ileus. Rico Boston MD FACR Chest X-Ray 10/09/16 0000 Signed Impressions: Service Date/Time: Sunday, October 09, 2016 08:36 - CONCLUSION: Stable chest x-ray with left basilar opacity likely representing pleural effusion with associated airspace consolidation and/or volume loss. Oliver Garcia MD Abdomen/Pelvis CT 10/04/16 0000 Signed Impressions: Service Date/Time: Tuesday, October 04, 2016 16:28 - CONCLUSION: 1. Severe colonic ileus which has increased slightly since October 01 with colon now measuring up to about 9.4 cm in diameter. Air is seen progressing distally into the rectosigmoid. 2. Mild anasarca. 3. Lawson catheter tip in bladder. 4. Mild right basilar airspace disease with dependent atelectasis. Jay Jay Burgess MD Objective Remarks GENERAL: Patient is 56 y/o, alert. SKIN: Warm and dry. HEAD: Normocephalic. EYES: No scleral icterus. No injection or drainage. NECK: Supple, trachea midline. Orally intubated. CARDIOVASCULAR: Regular rate and rhythm without murmurs, gallops, or rubs. No JVD. RESPIRATORY: Breath sounds equal bilaterally. No wheezes or crackles. GASTROINTESTINAL: Abdomen soft, non-tender, nondistended. Quiet. Post-surgical. MUSCULOSKELETAL: No cyanosis, + edema. Well perfused. Neuro: Awake and alert A/P Assessment and Plan Acute hypercarbic respiratory failure - extubated 10/10. Acute COPD exacerbation. Colonic ileus LLL infiltrate/Probable HCAP Bronchospasm Leukocytosis History of tobacco abuse. Hypertension. Internal hemorrhoids Plan Neuro: Awake and alert, avoid sedatives Pulm:Continue with oxygen and maintain sats > 90%. Bronchodilators, Pulmicort nebulizers q. 12, Spiriva one cap daily. Solu-Medrol 40mg Q12, Pulm is following- Dr. Marquez, Check CXR CV: On Cardizem 60mg QID, add Hydralazine 50mg Q8, Monitor HR and BP keep MAP> 65mmHg. : Monitor renal function, I/O's and electrolyte replacement as needed. GI: On Protonix 40 mg IV daily. On PPN at 75 cc an hour with lipids daily. Hold trickle feeds- start per surgery service. KUB 10/05- persistent abnormal dilation of bowel- on metoclopramide 10 mg IV every 8 hours. s/p colonoscopy 10/01 and 10/03 for colonic decompression -showed internal and external hemorrhoids. s/p diverting ileostomy 10/13 ID: On Flagyl, Diflucan, Zosyn per ID . Monitor for signs of infections ( Fever , WBC) C-diff PCR-neg Follow up on sputum culture from 10/07 - no growth 10/05 Blood, Urine cx: NGTD 09/27 BC: NGTD 09/26, Sputum cx: normal growth, Urine : NGTD Endo: SSI with accuchecks. Heme: Monitor CBC. GI prophylaxis with Protonix 40 mg daily and DVT prophylaxis with SCDs, Lovenox 40 mg subcu on hold Overall impression: Stable respiratory and hemodynamic function s/p colonic decompression and ileostomy. Del Hurst MD Oct 14, 2016 12:20
[2016-10-14] MEDS: BENEPROTEIN POWDER 1 PACK G-TUBE SCH ×2 (13:00→17:05)
[2016-10-14] MEDS: FLUCONAZOLE 400 MG PREMIX BAG 200 ML IV SCH (14:01)
[2016-10-14] MEDS: methylPREDNISolone SOD SUCC 40 MG/1 ML VIAL IV SCH (15:09)
--- NOTE | 2016-10-14 15:37 | MP ---
cc: JESSICA GARRIDO M.D. DATE OF SURGERY: 10/13/2016 PREOPERATIVE DIAGNOSIS Pneumoperitoneum. PROCEDURE 1. Exploratory laparotomy with irrigation of abdominal cavity and decompression of colonic ileus. 2. Diverting ileostomy. 3. Repair of colonic serosal splits. POSTOPERATIVE DIAGNOSIS 1. Pneumoperitoneum. 2. Colonic ileus. 3. Serosal splits. SURGEON Dr. Garrido [employer]PER[employer] SURGEON Dr. Yevgeniy Rucker DETAILS OF PROCEDURE The patient was placed in the supine position. After adequate general anesthesia her abdomen was prepped with Betadine solution and draped in the usual sterile fashion. With Dr. Rucker's assistance the abdomen was opened through a midline incision. Upon entering the peritoneum, pneumoperitoneum was released. There was no foul smell. There was some straw-colored ascites but no fecal material was encountered. The exploration revealed the small bowel to be pretty unremarkable. The cecum, right colon and transverse colon were moderately distended and there were serosal splits along the cecal region and the transverse colon. There did not appear to be a free perforation at any of these sites. The splenic flexure was palpated and felt to be very soft and without any induration. The left colon, rectosigmoid and rectum appeared normal with no other evidence of any perforations. There was some turbid fluid in the pelvis. The uterus and ovaries were appropriate for the patient's age. The stomach was examined and mobilized exposing the duodenum and no sign of any duodenal perforation was seen. The head of the pancreas was quite hard and firm of unknown etiology. The liver was palpated and felt to be slightly congested but no palpable masses. The gallbladder was not distended and showed no sign of any wall thickening. Next, the abdomen was irrigated copiously with copious amounts of saline until the effluent was pretty clear. A loop of terminal ileum was then chosen for diversion and a circular stab wound was created in the right side of the abdomen bringing the loop up through the stab wound without tension and good blood supply creating an avascular plane in the mesentery. The proximal limb of the stoma was then opened and the pull sucker was placed down through the terminal ileum into the cecum decompressing the right colon and transverse colon quite nicely. After decompression the serosal tears on the cecum and right colon and transverse colon were repaired with running 3-0 Vicryl sutures. Hemostasis was achieved at all sites. The midline incision was closed anatomically reapproximating the midline fascia with a #1 PDS suture. The subcu tissue was irrigated copiously and the skin closed with a row of surgical chris. The wound area was washed with normal saline and dried. Sterile dressing of Telfa and gauze applied. Finally the ileostomy was matured by creating a usual Gudelia stoma, maturing the proximal limb with interrupted chromic catgut sutures around the circumference. After completion the stoma did appear to be viable and was patent through the fascial level. A sterile ileostomy appliance was fitted over the new stoma. The patient tolerated the procedure quite well and was brought to the recovery room in stable condition. Sponge and needle counts were correct at the end of the procedure. MD HIRA Wylie/KEIRY /10:58 AM /3:22 PM
[2016-10-14] MEDS: MORPHINE SULFATE 4 MG/ML INJ IV PUSH PRN ×2 (15:43→22:24)
--- NOTE | 2016-10-14 18:11 | HHI.PR ---
Subjective Remarks 56 YOWF with VDRF, , extubated 10/10 no Fever abd distension decreased., Alert, awake , follows commands On 3LNC Had exp lap yesterday due to pneumoperitoneum Had Ileostomy Extubated today Started TF Objective Vital Signs Vital Signs Date Time Temp Pulse Resp B/P Pulse Ox O2 Delivery O2 Flow Rate FiO2 10/14/16 18:00 80 10/14/16 18:00 133/64 10/14/16 16:00 99.0 75 22 143/55 94 10/14/16 16:00 75 10/14/16 15:47 20 10/14/16 14:00 82 10/14/16 13:25 93 Nasal Cannula 4 10/14/16 13:25 93 Nasal Cannula 3.50 10/14/16 12:00 98.8 85 17 141/68 99 10/14/16 12:00 82 10/14/16 12:00 127/64 155/63 10/14/16 12:00 40 10/14/16 11:24 100 40 10/14/16 10:00 82 10/14/16 08:00 98.8 85 17 141/68 99 10/14/16 08:00 50 10/14/16 08:00 82 10/14/16 07:48 99 50 10/14/16 07:48 50 10/14/16 06:00 124/63 10/14/16 06:00 88 10/14/16 04:08 98 50 10/14/16 04:00 50 10/14/16 04:00 100.3 93 24 132/67 96 10/14/16 04:00 89 10/14/16 03:50 100 100 10/14/16 03:42 100 50 10/14/16 02:20 16 10/14/16 02:00 126/62 10/14/16 02:00 86 16 113/59 100 Mechanical Ventilator 60 10/13/16 23:00 124/67 10/13/16 23:00 71 17 115/60 100 Mechanical Ventilator 60 10/13/16 22:00 133/64 10/13/16 22:00 67 16 121/61 100 Mechanical Ventilator 60 10/13/16 21:30 69 15 115/63 100 Mechanical Ventilator 60 10/13/16 21:00 68 15 113/63 100 Mechanical Ventilator 60 10/13/16 21:00 135/66 10/13/16 20:45 66 15 124/62 100 Mechanical Ventilator 60 10/13/16 20:30 66 15 107/59 100 Mechanical Ventilator 60 10/13/16 20:30 131/59 10/13/16 20:15 73 15 114/67 100 Mechanical Ventilator 60 10/13/16 20:00 131/59 10/13/16 20:00 78 17 119/65 100 Mechanical Ventilator 70 10/13/16 19:45 81 17 114/67 100 Mechanical Ventilator 70 10/13/16 19:30 159/66 10/13/16 19:30 87 16 113/63 100 Mechanical Ventilator 70 10/13/16 19:15 88 16 116/60 100 Mechanical Ventilator 70 10/13/16 19:10 100 70 10/13/16 19:00 100 70 10/13/16 19:00 97.9 80 13 126/59 100 Mechanical Ventilator 70 10/13/16 19:00 140/58 I/O 10/13/16 10/13/16 10/13/16 10/14/16 10/14/16 10/14/16 07:00 15:00 23:00 07:00 15:00 23:00 Intake Total 784 ml 1036 ml 2270 ml 2129 ml 1645 ml Output Total 1100 ml 600 ml 1365 ml 1865 ml 2325 ml Balance -316 ml 436 ml 905 ml 264 ml -680 ml Intake Oral 0 ml 0 ml IV Total 136 ml 356 ml 100 ml 1844 ml 1645 ml Tube Feeding 53 ml TPN/PPN 572 ml 553 ml 150 ml 225 ml Lipid 76 ml 74 ml 20 ml 60 ml Other 2000 ml Output Urine Total 1100 ml 600 ml 1340 ml 1865 ml 2325 ml Stool Total 0 ml Estimated Blood Loss 25 ml # Bowel Movements 1 0 0 Result Diagram: 10/14/1644410/14/16444 Objective Remarks GENERAL: MBMN WF, on Vent SKIN: Warm and dry. HEAD: Normocephalic. EYES: No scleral icterus. No injection or drainage. NECK: Supple, trachea midline. No JVD or lymphadenopathy. CARDIOVASCULAR: Regular rate and rhythm without murmurs, gallops, or rubs. RESPIRATORY: Breath sounds equal bilaterally. No accessory muscle use. GASTROINTESTINAL: Abdomen soft, non-tender, nondistended. Ileostomy MUSCULOSKELETAL: No cyanosis, or edema. BACK: Nontender without obvious deformity. No CVA tenderness. A/P Assessment and Plan VDRF, s/p extubation 10/10 COPD Exac HTN Nicotine use S/p Exp Lap, ileostomy PLAN Aerosol nebs Wean Fi02 Abx per ID CPAP prn TF Abdirahman Marquez MD Oct 14, 2016 18:11
[2016-10-14] MEDS: RESP: ALBUTEROL 2.5 MG/IPRATROPIUM 0.5 MG NEB (PRN) NEB (19:33)
[2016-10-14] MEDS: FAT EMULSION 20% INJ 250 ML (@10 mls/hr) IV SCH (20:05)
[2016-10-14] MEDS: CLINIMIX E 4.25/5 2000 mL- >42 mls/hr IV SCH ×3 (20:06)
[2016-10-15] VITALS (14 sets, daily range): BP systolic 132–164; BP diastolic 63–77; PULSE 61–86; RESP 17–27; TEMP 98.5–99.2; O2SAT 93–98
[2016-10-15] MEDS: DILTIAZEM HCL 60 MG TAB PO SCH ×4 (01:49→22:04)
[2016-10-15] MEDS: PIPERACIL-TAZO 4.5 GM PREMIX 100 ML IV SCH ×4 (04:13→22:20)
[2016-10-15] MEDS: methylPREDNISolone SOD SUCC 40 MG/1 ML VIAL IV SCH ×2 (04:13→17:33)
[2016-10-15] MEDS ORDERED: PHARMACY ORDERED LAB ONE (05:45)
[2016-10-15] MEDS: VANCOMYCIN INJ 1,500 MG in SODIUM CHLORID 0.9% 500 ML INJ 500 ML IV SCH (06:21)
[2016-10-15] MEDS: hydrALAZINE HCL 50 MG TAB PO SCH ×3 (06:21→22:20)
[2016-10-15] MEDS: INSULIN NovoLIN REGULAR SUPPLEMENTAL SCALE SQ SCH ×4 (06:42→23:42)
--- NOTE | 2016-10-15 07:48 | HHI.PR ---
Subjective Remarks C/R Surg POD #1 afebrile, VSS UO good extubated Objective - Vital Signs Date Time Temp Pulse Resp B/P Pulse Ox O2 Delivery O2 Flow Rate FiO2 10/15/16 06:00 77 10/15/16 04:00 98.8 17 148/72 98 10/14/16 19:36 Nasal Cannula 3.00 10/14/16 12:00 40 Result Diagram: 10/14/16 0445 10/14/16 0445 Objective Remarks PE Abd - lg, soft, mild tympany, no mass stoma pink A/P Assessment and Plan Imp: recent pneumoperitoneum start PO restart tube feeds PT Victor Manuel Yo MD Oct 15, 2016 07:48
[2016-10-15] MEDS: RESP: ALBUTEROL 2.5 MG/IPRATROPIUM 0.5 MG NEB (PRN) NEB ×4 (07:54→20:57)
[2016-10-15] MEDS: RESP: BUDESONIDE 0.5 MG/2 ML NEB NEB SCH ×2 (07:55→20:57)
[2016-10-15] MEDS: CHLORHEXIDINE 0.12% (ORAL KIT) 15 ML CUP MT SCH ×2 (08:00→20:00)
[2016-10-15] MEDS: PANTOPRAZOLE SODIUM 40 MG VIAL IV PUSH SCH (08:29)
[2016-10-15] MEDS: ALBUMIN HUMAN 25% 25 GM/100 ML BAGP IV SCH (08:30)
[2016-10-15] MEDS: SODIUM CHLORIDE 0.9% FLUSH 10 ML FLUSH IV FLUSH SCH ×2 (08:39→21:00)
[2016-10-15] MEDS: BENEPROTEIN POWDER 1 PACK G-TUBE SCH ×3 (08:39→18:00)
[2016-10-15] MEDS: TIOTROPIUM BROMIDE 18 MCG INH INH SCH (08:39)
--- NOTE | 2016-10-15 12:36 | HHI.IDPN ---
Subjective Subjective Remarks Patient is a 56-year-old female, with known COPD, presented to the hospital complaining of severe and worsening shortness of breath, cough. There was no fever or chills nausea or vomiting, abdominal pain, or any other GI complaints. Her initial chest x-ray was normal. She was admitted for COPD exacerbation, and on her first hospital day her shortness of breath got progressively worse so she ended up getting intubated. Patient has been on the vent since. Her cultures have been negative. She was laced on steroids. She started having problem with significant ileus, and patient has had 2 decompressive colonoscopies done. No abnormalities seen during her colonoscopy , no obstruction, no mass, no pseudomembrane. Since September for her white count started increasing. Patient has been on Zosyn, and Flagyl. Her WBC continues to increase. There is no record of any diarrhea. She has not been febrile. Notes reviewed D/W RN Extubated On nasal O2 Ileostomy working Temps ok BP ok Had surgery: Exploratory laparotomy, decompress colon, ileostomy, repair serosal splits Awake and alert, NAD Mild abdominal pain WBC lower Antibiotics Flagyl Diflucan Zosyn Vancomycin Lines PIV Past Medical History COPD Hypertension Past Surgical History Tubal ligation Allergies: Coded Allergies: No Known Allergies (Unverified , 09/24/16) Objective . Vital Signs Date Time Temp Pulse Resp B/P Pulse Ox O2 Delivery O2 Flow Rate FiO2 10/15/16 07:57 94 Nasal Cannula 2.00 10/15/16 06:00 77 10/15/16 04:00 98.8 61 17 148/72 98 10/15/16 04:00 61 10/15/16 02:00 77 10/15/16 00:00 99.0 72 18 132/63 94 10/15/16 00:00 73 10/14/16 22:29 18 10/14/16 22:00 80 10/14/16 20:00 99.1 80 20 144/67 94 Arterial Line 10/14/16 20:00 79 10/14/16 19:36 97 Nasal Cannula 3.00 10/14/16 18:00 80 10/14/16 18:00 133/64 10/14/16 16:00 99.0 75 22 143/55 94 10/14/16 16:00 75 10/14/16 14:00 82 10/14/16 13:25 93 Nasal Cannula 4 10/14/16 13:25 93 Nasal Cannula 3.50 10/14/16 10/14/16 10/15/16 15:00 23:00 07:00 Intake Total 1645 ml 1845 ml 1187 ml Output Total 2325 ml 2750 ml 1450 ml Balance -680 ml -905 ml -263 ml IV Total 1645 ml 854 ml 212 ml Tube Feeding 68 ml 184 ml TPN/PPN 637 ml 521 ml Lipid 86 ml 70 ml Other 200 ml 200 ml Output Urine Total 2325 ml 2750 ml 1450 ml Stool Total 0 ml 0 ml 0 ml . Laboratory Tests Test 10/14/16 04:45 White Blood Count 29.7 TH/MM3 Red Blood Count 3.97 MIL/MM3 Hemoglobin 11.8 GM/DL Hematocrit 35.4 % Mean Corpuscular Volume 89.2 FL Mean Corpuscular Hemoglobin 29.8 PG Mean Corpuscular Hemoglobin 33.4 % Concent Red Cell Distribution Width 13.3 % Platelet Count 188 TH/MM3 Mean Platelet Volume 9.9 FL Neutrophils (%) (Auto) 94.7 % Lymphocytes (%) (Auto) 1.0 % Monocytes (%) (Auto) 3.3 % Eosinophils (%) (Auto) 0.1 % Basophils (%) (Auto) 0.9 % Neutrophils # (Auto) 28.2 TH/MM3 Lymphocytes # (Auto) 0.3 TH/MM3 Monocytes # (Auto) 1.0 TH/MM3 Eosinophils # (Auto) 0.0 TH/MM3 Basophils # (Auto) 0.3 TH/MM3 CBC Comment DIFF FINAL Differential Comment Laboratory Tests Test 10/14/16 04:45 Sodium Level 137 MEQ/L Potassium Level 4.4 MEQ/L Chloride Level 105 MEQ/L Carbon Dioxide Level 26.4 MEQ/L Anion Gap 6 MEQ/L Blood Urea Nitrogen 21 MG/DL Creatinine 0.29 MG/DL Estimat Glomerular Filtration 239 ML/MIN Rate Random Glucose 113 MG/DL Calcium Level 7.6 MG/DL Phosphorus Level 2.5 MG/DL Magnesium Level 2.1 MG/DL Total Bilirubin 0.7 MG/DL Aspartate Amino Transf 142 U/L (AST/SGOT) Alanine Aminotransferase 362 U/L (ALT/SGPT) Alkaline Phosphatase 64 U/L Total Protein 5.1 GM/DL Albumin 1.9 GM/DL Amylase Level 95 U/L Lipase 315 U/L Microbiology Date/Time Procedure Status Source Growth 10/12/16 14:30 Aerobic Blood Culture - Preliminary Resulted Blood Peripheral NO GROWTH IN 3 DAYS 10/12/16 14:30 Anaerobic Blood Culture - Preliminary Resulted Blood Peripheral NO GROWTH IN 3 DAYS 10/12/16 14:49 Aerobic Blood Culture - Preliminary Resulted Blood Peripheral NO GROWTH IN 3 DAYS 10/12/16 14:49 Anaerobic Blood Culture - Preliminary Resulted Blood Peripheral NO GROWTH IN 3 DAYS Imaging Abdomen X-Ray 10/08/16 0000 Signed Impressions: Service Date/Time: September 08:39 - CONCLUSION: Slight improvement in gaseous distention of bowel Oliver Harman MD Chest X-Ray 10/07/16 0000 Signed Impressions: Service Date/Time: Friday, October 07, 2016 04:36 - CONCLUSION: Left lower lobe consolidation. Todd Ortega MD Abdomen X-Ray 10/06/16 0600 Signed Impressions: Service Date/Time: Thursday, October 06, 2016 03:45 - CONCLUSION: Slight decreased bowel dilatation. Todd Ortega MD Chest X-Ray 10/04/16 0000 Signed Impressions: Service Date/Time: Tuesday, October 04, 2016 09:36 - CONCLUSION: Suspected atelectasis at the right lung base. Otherwise, no acute finding is identified. Oliver Garcia MD Abdomen/Pelvis CT 10/04/16 0000 Signed Impressions: Service Date/Time: Tuesday, October 04, 2016 16:28 - CONCLUSION: 1. Severe colonic ileus which has increased slightly since October 01 with colon now measuring up to about 9.4 cm in diameter. Air is seen progressing distally into the rectosigmoid. 2. Mild anasarca. 3. Lawson catheter tip in bladder. 4. Mild right basilar airspace disease with dependent atelectasis. Jay Jay Burgess MD Physical Exam GENERAL: Awake and alert, on nasal O2, NAD SKIN: Warm and dry. No generalized rash, no ecchymoses HEAD: Atraumatic. Normocephalic. No temporal wasting, or tenderness. EYES: [place] conjunctiva. No petechia or hemorrhage. Pupils equal, round and reactive to light. No scleral icterus. No injection or drainage. EARS, NOSE AND THROAT: Nose without bleeding or purulent nasal discharge. Has NG tube in place NECK: Trachea midline. Supple and not tender, no meningeal signs CARDIOVASCULAR: Regular rate and rhythm. No murmurs, rubs or gallops heard RESPIRATORY: Scattered rhonchi, decreased at bases ABDOMEN: Globular and softer, bowel sounds are hypoactive, tender on R, dry midline incision, with ileostomy. Ileostomy working EXTREMITIES: No clubbing, cyanosis. Has edema of feet. Warm. NEUROLOGICAL: Non-focal PSYCHIATRIC: cooperative LINE: No evidence of infection : Lawson in place, urine looks clear Assessment & Plan Remarks IMPRESSION Leukocytosis, due to intraabdominal process, better - S/P lap Respiratory failure, has L base opacity, ?PNA - S/P extubation 10/10 COPD Ileus, severe, has had 2 decompression - C/O increased abdominal pain - AXR seems less gas - has had multiple decompression - C diff negative Respiratory failure post op, extubated RECOMMENDATION Continue Diflucan Continue Zosyn Stop IV Vanco Follow CBC Monitor progrurbano D/W Chinyere Macias MD Oct 15, 2016 12:36
--- NOTE | 2016-10-15 14:32 | HHI.CCPN ---
Subjective Remarks/Hospital Course The patient is a 56-year-old female with past medical history of COPD and hypertension who presented to the [facility] ED with a 2-week history of progressive shortness of breath. In addition, she reports a dry cough and wheezing. The patient denies any constitutional symptoms. In addition she denies any nausea, vomiting, or abdominal pain. No history of orthopnea, PND or edema of lower extremities. She denies any use of oxygen at home; however, she uses nebulizers and is on Symbicort. In the ED the patient was given IV steroids and bronchodilator treatments. She was in the ER last night with the same presentation and after several hours of treatments she was discharged with a prescription for a tapered dose of prednisone. In addition, she was given a new albuterol inhaler. She came back a few hours later in respiratory distress. A chest x-ray from last night showed no acute disease. No laboratory data or blood gases available today; however, ABG from last night on a BiPAP 02/03 with 35% FIO2 showed a pH of 7.37, CO2 40, pAO2 of 105, bicarb 23 and saturation of 96%. 09/26 Patient was intubated yesterday for resp distress sedated with Versed 5mg and low doses Fentanyl and Diprivan. Afebrile. Given 1L NS last night for hypotension 09/27 Patient is sedated with Fentanyl and intubated. Afebrile. Patient was initially placed on PC/AC last night however his ABG showed acute resp acidosis with PH: 7.26,COP2 52 he was placed back on PRVC/AC mode. 09/28 Patient remains sedated with Fentanyl and versed placed on Nimbex overnight. Afebrile. WBC is trending down. 09/29 No events overnight. Sedated and intubated. Hypertensive. 09/30 Patient remains intubated and sedated. Off Nimbex. Afebrile. 10/01: Patient has significant bilateral wheezing. Abdominal distention increasing. No bowel movement since admission. KUB pending. Reduced RR to 14 to avoid air trapping 10/02 No events overnight, sedated with Fentanyl and Versed. Afebrile. s/p colonoscopy yesterday for colonic decompression, rectal tube to suction 10/03: . Plan for decompressive colonoscopy today due to 10.5 cm cecum. Patient is arousable and follows commands. FiO2 35%. Saturations 99%. No bowel movement. Subjective 10/04: Status post expressive colonoscopy yesterday. X-ray revealed 11.7 cm dilated: Today. Bladder pressures around 9-11. This a.m., asynchronous with the ventilator so paralyzed with rocuronium currently on a Nimbex drip. 10/05 Patient remains sedated and intubated in addition he is on Nimbex. Afebrile. 10/06 Patient remains intubated and sedated with Versed and Diprivan , on Nimbex. Afebrile. 10/07: Remains intubated, sedated. Abdomen remains distended. GI planning on decompressive colonoscopy today. Overnight had bowel movement. FiO2 remains high at 60%. Chest x-ray shows left lower lobe consolidation. Start cefepime 2 g IV every 8 hours 10/08 Patient is sedated with Versed and Diprivan. s/p colonoscopy yesterday for colonic decompression. On PRVC with PEEP:8 and 50% FIO2. 10/09 No events overnight. sedated with Diprivan and versed. Afebrile. On PRVC with PEEP: 8, FIO2 45%. 10/10 Patient is sedated with Diprivan and intubated. Did not tolerate CPAP trials yesterday as she became tachypneic. Afebrile. 10/11 Patient s/p extubation yesterday placed on BIPAP overnight. Awake and alert. Afebrile. 10/12 No events overnight. Awake and alert. On 3L oxygen with good sats. Afebrile. Intermittent use of BIPAP overnight. 10/13 Patient reports abdominal discomfort denies any N/V. On 2L. Afebrile. 10/14: Tolerating CPAP, will progress to extubation. Warm, well perfused. 10/15: Extubated about 24 hours ago, continues to breath comfortably. Afebrile. Objective Vital Signs Date Time Temp Pulse Resp B/P Pulse Ox O2 Delivery O2 Flow Rate FiO2 10/15/16 12:00 78 10/15/16 12:00 98.9 26 142/68 95 10/15/16 07:57 Nasal Cannula 2.00 10/14/16 12:00 40 Intake and Output 10/14/16 10/14/1617 08:00 16:00 00:00 Intake Total 2129 ml 1645 ml 1845 ml Output Total 1365 ml 2325 ml 2750 ml Balance 764 ml -680 ml -905 ml Result Diagram: 10/14/16 0445 10/14/16 0445 Imaging Last Impressions Abdomen X-Ray 10/12/16 0000 Signed Impressions: Service Date/Time: Wednesday, October 12, 2016 07:42 - CONCLUSION: Nasogastric tube in good position, probably ileus. Rico Boston MD FACR Chest X-Ray 10/09/16 0000 Signed Impressions: Service Date/Time: Sunday, October 09, 2016 08:36 - CONCLUSION: Stable chest x-ray with left basilar opacity likely representing pleural effusion with associated airspace consolidation and/or volume loss. Oliver Garcia MD Abdomen/Pelvis CT 10/04/16 0000 Signed Impressions: Service Date/Time: Tuesday, October 04, 2016 16:28 - CONCLUSION: 1. Severe colonic ileus which has increased slightly since October 01 with colon now measuring up to about 9.4 cm in diameter. Air is seen progressing distally into the rectosigmoid. 2. Mild anasarca. 3. Lawson catheter tip in bladder. 4. Mild right basilar airspace disease with dependent atelectasis. Jay Jay Burgess MD Objective Remarks GENERAL: Patient is 56 y/o, alert. SKIN: Warm and dry. HEAD: Normocephalic. NECK: Supple, trachea midline. Airway widely patent, no stridor. CARDIOVASCULAR: Regular rate and rhythm without murmurs or rubs. No JVD. RESPIRATORY: Breath sounds equal bilaterally. No wheezes or crackles. Comfortable respiratory pattern. GASTROINTESTINAL: Abdomen soft, non-tender, nondistended. BS active. Post- surgical. MUSCULOSKELETAL: No cyanosis, trace edema. Well perfused. Neuro: Awake and alert, O X 3. A/P Assessment and Plan Acute hypercarbic respiratory failure - extubated 10/10. Acute COPD exacerbation. Colonic ileus LLL infiltrate/Probable HCAP Bronchospasm Leukocytosis History of tobacco abuse. Hypertension. Internal hemorrhoids Plan Neuro: Awake and alert, avoid sedatives Pulm:Continue with oxygen and maintain sats > 90%. Bronchodilators, Pulmicort nebulizers q. 12, Spiriva one cap daily. d/c Solu-Medrol 40mg Q12, Pulm is following- Dr. Marquez, CV: On Cardizem 60mg QID, add Hydralazine 50mg Q8, Monitor HR and BP keep MAP> 65mmHg. : Monitor renal function, I/O's and electrolyte replacement as needed. GI: On Protonix 40 mg IV daily. D/C PPN at 75 cc an hour with lipids daily. Start tube feeds per surgery service. KUB 10/05- persistent abnormal dilation of bowel- on metoclopramide 10 mg IV every 8 hours. s/p colonoscopy 10/01 and 10/03 for colonic decompression -showed internal and external hemorrhoids. s/p diverting ileostomy 10/13 ID: On Flagyl, Diflucan, Zosyn per ID . Monitor for signs of infections ( Fever , WBC) C-diff PCR-neg Follow up on sputum culture from 10/07 - no growth 10/05 Blood, Urine cx: NGTD 09/27 BC: NGTD 09/26, Sputum cx: normal growth, Urine : NGTD Endo: SSI with accuchecks. Heme: Monitor CBC. GI prophylaxis with Protonix 40 mg daily and DVT prophylaxis with SCDs, Lovenox 40 mg subcu on hold Overall impression: Stable respiratory and hemodynamic function s/p colonic decompression and ileostomy. She looks good. Del Hurst MD Oct 15, 2016 14:32
[2016-10-15] MEDS: FLUCONAZOLE 400 MG PREMIX BAG 200 ML IV SCH (14:45)
--- NOTE | 2016-10-15 16:47 | PD.WCN.NOT ---
Wound Consult Description: Consult placed per Dr Yo for "stoma" Communicated with: Gisel, patients daughter Recommendation: To read the booklet given for information on the ileostomy surgery. Additional Information: Patient was sleeping upon arrival. Daughter asked that she be allowed to sleep. Kit was left in patients room and the booklet was taken out and given to Gisel to read and show her mom when she wakes up. Ostomy Type: Ileostomy Surgeon: Victor Manuel Yo MD Date of Surgery: Oct 13, 2016 Complete: Education materials Educated patient on: Patient was asleep and allowed to rest per request of her daughter Gisel. Additional information Patient stoma visualized on right lower abdomen and noted with ~50ml dark green thick liquid effluent noted to pouch. Pouch was removed to visualize stoma that was pink, oval, dry, and functioning as described previously. ConvaTec ileostomy me+ kit left for patient when she is able to participate in discussion for education regarding her stoma. Nell Nur [facility] Oct 15, 2016 16:47
[2016-10-15] MEDS: MORPHINE SULFATE 4 MG/ML INJ IV PUSH PRN (17:34)
[2016-10-15] MEDS ORDERED: VANCOMYCIN INJ 1,750 MG in SODIUM CHLORID 0.9% 500 ML INJ 500 ML IV SCH (18:00)
--- NOTE | 2016-10-15 18:42 | HHI.PR ---
Subjective Remarks 56 YOWF with VDRF, , extubated 10/10 no Fever abd distension decreased., Alert, awake , follows commands On 3LNC Had exp lap yesterday due to pneumoperitoneum Had Ileostomy Tolerates clears Objective Vital Signs Vital Signs Date Time Temp Pulse Resp B/P Pulse Ox O2 Delivery O2 Flow Rate FiO2 10/15/16 12:00 78 10/15/16 12:00 98.9 78 26 142/68 95 10/15/16 10:00 82 10/15/16 08:00 99.2 80 22 135/69 96 10/15/16 08:00 80 10/15/16 07:57 94 Nasal Cannula 2.00 10/15/16 06:00 77 10/15/16 04:00 98.8 61 17 148/72 98 10/15/16 04:00 61 10/15/16 02:00 77 10/15/16 00:00 99.0 72 18 132/63 94 10/15/16 00:00 73 10/14/16 22:29 18 10/14/16 22:00 80 10/14/16 20:00 99.1 80 20 144/67 94 Arterial Line 10/14/16 20:00 79 10/14/16 19:36 97 Nasal Cannula 3.00 I/O 10/14/16 10/14/16 10/14/16 10/15/16 10/15/16 10/15/16 07:00 15:00 23:00 07:00 15:00 23:00 Intake Total 2129 ml 1645 ml 1845 ml 1187 ml Output Total 1865 ml 2325 ml 2750 ml 1450 ml Balance 264 ml -680 ml -905 ml -263 ml IV Total 1844 ml 1645 ml 854 ml 212 ml Tube Feeding 68 ml 184 ml TPN/PPN 225 ml 637 ml 521 ml Lipid 60 ml 86 ml 70 ml Other 200 ml 200 ml Output Urine Total 1865 ml 2325 ml 2750 ml 1450 ml Stool Total 0 ml 0 ml 0 ml # Bowel Movements 0 Result Diagram: 10/14/1644410/14/16444 Objective Remarks GENERAL: MBMN WF, on Vent SKIN: Warm and dry. HEAD: Normocephalic. EYES: No scleral icterus. No injection or drainage. NECK: Supple, trachea midline. No JVD or lymphadenopathy. CARDIOVASCULAR: Regular rate and rhythm without murmurs, gallops, or rubs. RESPIRATORY: Breath sounds equal bilaterally. No accessory muscle use. GASTROINTESTINAL: Abdomen soft, non-tender, nondistended. Ileostomy MUSCULOSKELETAL: No cyanosis, or edema. BACK: Nontender without obvious deformity. No CVA tenderness. A/P Assessment and Plan VDRF, s/p extubation 10/10 COPD Exac HTN Nicotine use S/p Exp Lap, ileostomy PLAN Wean Fi02 Abx per ID CPAP prn Abdirahman Desai MD Oct 15, 2016 18:42
[2016-10-16] VITALS (14 sets, daily range): BP systolic 134–167; BP diastolic 65–78; PULSE 67–86; RESP 15–24; TEMP 98–99.6; O2SAT 94–99
[2016-10-16] MEDS: DILTIAZEM HCL 60 MG TAB PO SCH ×4 (02:03→21:29)
[2016-10-16] MEDS: methylPREDNISolone SOD SUCC 40 MG/1 ML VIAL IV SCH ×2 (03:35→15:43)
[2016-10-16] MEDS: PIPERACIL-TAZO 4.5 GM PREMIX 100 ML IV SCH ×4 (04:22→21:40)
[2016-10-16] MEDS: INSULIN NovoLIN REGULAR SUPPLEMENTAL SCALE SQ SCH ×4 (05:31→23:29)
[2016-10-16] MEDS: hydrALAZINE HCL 50 MG TAB PO SCH ×3 (05:42→21:29)
[2016-10-16 06:21] LABS: AUTOMATED NEUTROPHIL # 19.7 TH/MM3 (1.8-7.7); BASOPHIL % 0.2 % (0.0-2.0); EOSINOPHIL # 0.1 TH/MM3 (0-0.4); EOSINOPHIL % 0.6 % (0.0-4.0); HEMATOCRIT 34.4 % (35.0-46.0); HEMO FLAGS DIFF FINAL; LYMPHOCYTE # 0.6 TH/MM3 (1.0-4.8); MEAN CELL VOLUME 89.6 FL (80.0-100.0); MEAN CORPUSCULAR HEMOGLOBIN 29.6 PG (27.0-34.0); MONO % 4.7 % (0.0-8.0); NEUT % 91.5 % (16.0-70.0); PLATELET COUNT 195 TH/MM3 (150-450); RED BLOOD COUNT 3.84 MIL/MM3 (4.00-5.30); RED CELL DISTRIBUTION WIDTH 13.4 % (11.6-17.2); WHITE BLOOD COUNT 21.6 TH/MM3 (4.0-11.0)
[2016-10-16 07:04] LABS: BICARBONATE 25.9 MEQ/L (21.0-32.0)
[2016-10-16] MEDS: CHLORHEXIDINE 0.12% (ORAL KIT) 15 ML CUP MT SCH ×2 (08:00→20:00)
--- NOTE | 2016-10-16 08:50 | HHI.PR ---
Subjective Remarks 56 YOWF with VDRF, , extubated 10/10 no Fever abd distension decreased., Alert, awake , follows commands On 3LNC Poor po intake On TF 40cc /hr Objective Vital Signs Vital Signs Date Time Temp Pulse Resp B/P Pulse Ox O2 Delivery O2 Flow Rate FiO2 10/16/16 06:00 80 10/16/16 04:00 80 10/16/16 04:00 98.9 67 19 167/76 99 10/16/16 02:00 82 10/16/16 00:00 98.9 77 24 134/66 96 10/16/16 00:00 77 10/15/16 22:00 76 10/15/16 20:59 94 Nasal Cannula 2.00 10/15/16 20:00 78 10/15/16 20:00 98.8 78 27 164/77 94 10/15/16 18:00 80 10/15/16 16:00 86 10/15/16 16:00 98.5 86 26 142/66 93 10/15/16 14:00 80 10/15/16 12:00 78 10/15/16 12:00 98.9 78 26 142/68 95 10/15/16 10:00 82 I/O 10/15/16 10/15/16 10/15/16 10/16/16 10/16/16 10/16/16 06:59 14:59 22:59 06:59 14:59 22:59 Intake Total 1187 ml 2367 ml 646 ml 742 ml Output Total 1450 ml 2925 ml 2000 ml 1550 ml Balance -263 ml -558 ml -1354 ml -808 ml Intake Oral 60 ml 60 ml IV Total 212 ml 767 ml 190 ml 186 ml Tube Feeding 184 ml 502 ml 196 ml 296 ml TPN/PPN 521 ml 792 ml Lipid 70 ml 106 ml Other 200 ml 200 ml 200 ml 200 ml Output Urine Total 1450 ml 2850 ml 2000 ml 1400 ml Stool Total 0 ml 75 ml 0 ml 150 ml # Bowel Movements 0 Result Diagram: 10/16/16 0604 10/16/16 0604 Objective Remarks GENERAL: MBMN WF, on Vent SKIN: Warm and dry. HEAD: Normocephalic. EYES: No scleral icterus. No injection or drainage. NECK: Supple, trachea midline. No JVD or lymphadenopathy. CARDIOVASCULAR: Regular rate and rhythm without murmurs, gallops, or rubs. RESPIRATORY: Breath sounds equal bilaterally. No accessory muscle use. GASTROINTESTINAL: Abdomen soft, non-tender, nondistended. Ileostomy MUSCULOSKELETAL: No cyanosis, or edema. BACK: Nontender without obvious deformity. No CVA tenderness. A/P Assessment and Plan VDRF, s/p extubation 10/10 COPD Exac HTN Nicotine use S/p Exp Lap, ileostomy PLAN Wean Fi02 Abx per ID CPAP prn Duonebs qid Encourage PO Abdirahman Marquez MD Oct 16, 2016 08:50
[2016-10-16] MEDS: PANTOPRAZOLE SODIUM 40 MG VIAL IV PUSH SCH (08:53)
[2016-10-16] MEDS: ALBUMIN HUMAN 25% 25 GM/100 ML BAGP IV SCH (08:54)
[2016-10-16] MEDS: BENEPROTEIN POWDER 1 PACK G-TUBE SCH ×3 (08:54→18:00)
[2016-10-16] MEDS: TIOTROPIUM BROMIDE 18 MCG INH INH SCH (08:54)
[2016-10-16] MEDS: SODIUM CHLORIDE 0.9% FLUSH 10 ML FLUSH IV FLUSH SCH ×2 (08:55→21:29)
[2016-10-16] MEDS: RESP: BUDESONIDE 0.5 MG/2 ML NEB NEB SCH ×2 (10:41→19:47)
[2016-10-16] MEDS: RESP: ALBUTEROL 2.5 MG/IPRATROPIUM 0.5 MG NEB (PRN) NEB (10:41)
[2016-10-16] MEDS ORDERED: FLUCONAZOLE 200 MG TAB PO SCH (16:00)
--- NOTE | 2016-10-16 16:28 | HHI.IDPN ---
Subjective Subjective Remarks Patient is a 56-year-old female, with known COPD, presented to the hospital complaining of severe and worsening shortness of breath, cough. There was no fever or chills nausea or vomiting, abdominal pain, or any other GI complaints. Her initial chest x-ray was normal. She was admitted for COPD exacerbation, and on her first hospital day her shortness of breath got progressively worse so she ended up getting intubated. Patient has been on the vent since. Her cultures have been negative. She was laced on steroids. She started having problem with significant ileus, and patient has had 2 decompressive colonoscopies done. No abnormalities seen during her colonoscopy , no obstruction, no mass, no pseudomembrane. Since October 02 her white count started increasing. Patient has been on Zosyn, and Flagyl. Her WBC continues to increase. There is no record of any diarrhea. She has not been febrile. Notes reviewed Has low grade temps Stable post extubation On nasal O2 Ileostomy working WBC slowly decreasing BP ok Diet has been advanced Had surgery: Exploratory laparotomy, decompress colon, ileostomy, repair serosal splits Antibiotics Diflucan Zosyn Vancomycin Lines PIV Past Medical History COPD Hypertension Past Surgical History Tubal ligation Allergies: Coded Allergies: No Known Allergies (Unverified , 09/24/16) Objective . Vital Signs Date Time Temp Pulse Resp B/P Pulse Ox O2 Delivery O2 Flow Rate FiO2 10/16/16 16:00 99.1 86 15 144/73 95 10/16/16 16:00 86 10/16/16 14:00 78 10/16/16 12:00 81 10/16/16 12:00 99.3 81 21 137/65 95 10/16/16 10:45 96 Nasal Cannula 2.00 10/16/16 10:00 73 10/16/16 08:00 99.6 82 23 140/72 94 10/16/16 08:00 81 10/16/16 06:00 80 10/16/16 04:00 80 10/16/16 04:00 98.9 67 19 167/76 99 10/16/16 02:00 82 10/16/16 00:00 98.9 77 24 134/66 96 10/16/16 00:00 77 10/15/16 22:00 76 10/15/16 20:59 94 Nasal Cannula 2.00 10/15/16 20:00 78 10/15/16 20:00 98.8 78 27 164/77 94 10/15/16 18:00 80 10/15/16 10/15/16 10/16/16 15:00 23:00 07:00 Intake Total 2367 ml 646 ml 742 ml Output Total 2925 ml 2000 ml 1550 ml Balance -558 ml -1354 ml -808 ml Intake Oral 60 ml 60 ml IV Total 767 ml 190 ml 186 ml Tube Feeding 502 ml 196 ml 296 ml TPN/PPN 792 ml Lipid 106 ml Other 200 ml 200 ml 200 ml Output Urine Total 2850 ml 2000 ml 1400 ml Stool Total 75 ml 0 ml 150 ml # Bowel Movements 0 . Laboratory Tests Test 10/16/16 06:04 White Blood Count 21.6 TH/MM3 Red Blood Count 3.84 MIL/MM3 Hemoglobin 11.4 GM/DL Hematocrit 34.4 % Mean Corpuscular Volume 89.6 FL Mean Corpuscular Hemoglobin 29.6 PG Mean Corpuscular Hemoglobin 33.0 % Concent Red Cell Distribution Width 13.4 % Platelet Count 195 TH/MM3 Mean Platelet Volume 9.8 FL Neutrophils (%) (Auto) 91.5 % Lymphocytes (%) (Auto) 3.0 % Monocytes (%) (Auto) 4.7 % Eosinophils (%) (Auto) 0.6 % Basophils (%) (Auto) 0.2 % Neutrophils # (Auto) 19.7 TH/MM3 Lymphocytes # (Auto) 0.6 TH/MM3 Monocytes # (Auto) 1.0 TH/MM3 Eosinophils # (Auto) 0.1 TH/MM3 Basophils # (Auto) 0.0 TH/MM3 CBC Comment DIFF FINAL Differential Comment Laboratory Tests Test 10/16/16 06:04 Sodium Level 135 MEQ/L Potassium Level 4.0 MEQ/L Chloride Level 100 MEQ/L Carbon Dioxide Level 25.9 MEQ/L Anion Gap 9 MEQ/L Blood Urea Nitrogen 17 MG/DL Creatinine 0.33 MG/DL Estimat Glomerular Filtration 206 ML/MIN Rate Random Glucose 106 MG/DL Calcium Level 8.7 MG/DL Imaging Abdomen X-Ray 10/08/16 0000 Signed Impressions: Service Date/Time: September 08:39 - CONCLUSION: Slight improvement in gaseous distention of bowel Oliver Harman MD Chest X-Ray 10/07/16 0000 Signed Impressions: Service Date/Time: Friday, October 07, 2016 04:36 - CONCLUSION: Left lower lobe consolidation. Todd Ortega MD Abdomen X-Ray 10/06/16 0600 Signed Impressions: Service Date/Time: Thursday, October 06, 2016 03:45 - CONCLUSION: Slight decreased bowel dilatation. Todd Ortega MD Chest X-Ray 10/04/16 0000 Signed Impressions: Service Date/Time: Tuesday, October 04, 2016 09:36 - CONCLUSION: Suspected atelectasis at the right lung base. Otherwise, no acute finding is identified. Oliver Garcia MD Abdomen/Pelvis CT 10/04/16 0000 Signed Impressions: Service Date/Time: Tuesday, October 04, 2016 16:28 - CONCLUSION: 1. Severe colonic ileus which has increased slightly since October 01 with colon now measuring up to about 9.4 cm in diameter. Air is seen progressing distally into the rectosigmoid. 2. Mild anasarca. 3. Lawson catheter tip in bladder. 4. Mild right basilar airspace disease with dependent atelectasis. Jay Jay Burgess MD Physical Exam GENERAL: Awake and alert, on nasal O2, NAD SKIN: Warm and dry. No generalized rash, no ecchymoses HEAD: Atraumatic. Normocephalic. No temporal wasting, or tenderness. EYES: Vadito conjunctiva. No petechia or hemorrhage. No scleral icterus. No injection or drainage. EARS, NOSE AND THROAT: Nose without bleeding or purulent nasal discharge. Has NG tube in place NECK: Trachea midline. Supple and not tender, no meningeal signs CARDIOVASCULAR: Regular rate and rhythm. No murmurs, rubs or gallops heard RESPIRATORY: Scattered rhonchi, decreased at bases ABDOMEN: Globular and softer, bowel sounds are hypoactive, tender on R, dry midline incision. Ileostomy working EXTREMITIES: No clubbing, cyanosis. Has edema of feet. Warm. NEUROLOGICAL: Non-focal PSYCHIATRIC: cooperative LINE: No evidence of infection : Lawson in place, urine looks clear Assessment & Plan Remarks IMPRESSION Leukocytosis, due to intraabdominal process, better - S/P lap Respiratory failure, has L base opacity, ?PNA - S/P extubation 10/10 COPD Ileus, severe, has had 2 decompression - C/O increased abdominal pain - AXR seems less gas - has had multiple decompression - C diff negative Respiratory failure post op, extubated Post op low grade temps RECOMMENDATION Change Diflucan to po Continue Zosyn Follow CBC Follow temps Monitor Chinyere Jon MD Oct 16, 2016 16:28
--- NOTE | 2016-10-16 16:51 | PD.WCN.NOT ---
Wound Consult Description: Consult placed per Dr Yo for "stoma" Communicated with: Patient patients boyfriend Recommendation: Read the ileostomy booklet given for introduction to ileostomy teaching Additional Information: Patient seen on for ostomy teaching with patient boyfriend at bedside. Ostomy Type: Ileostomy Surgeon: Victor Manuel Yo MD Date of Surgery: Oct 13, 2016 Complete: Education materials Educated patient on: Reading information booklet for introduction to teaching. Patient states that she would like her boyfriend to read it to her. Educated patient on dehydration risks with ileostomy surgery. Additional information Patient states that the dr said in about 2 months the surgery could be reversed. It was explained to her that her nurses and information writer would be teaching her how to take care of the stoma while she is here in the hospital so that she would be able to take care of it when she is discharged. Patient states that she does not want to look at it right now. The stoma was visualized previously and functioning properly. Patient will be followed up with on Wednesday for further ileostomy teaching. [facility] Oct 16, 2016 16[facility]51
--- NOTE | 2016-10-16 18:19 | HHI.PR ---
Subjective Remarks C/R Surg POD #3 afebrile, VSS UO good coughing Objective - Vital Signs Date Time Temp Pulse Resp B/P Pulse Ox O2 Delivery O2 Flow Rate FiO2 10/16/16 16:00 99.1 86 15 144/73 95 10/16/16 10:45 Nasal Cannula 2.00 10/14/16 12:00 40 Result Diagram: 10/16/16 0604 10/16/16 0604 Objective Remarks PE Abd - lg, soft, mild tympany, no mass stoma pink, wound dry A/P Assessment and Plan Imp: recent pneumoperitoneum start PO,adv restart tube feeds - dc PT Victor Manuel Yo MD Oct 16, 2016 18:19
[2016-10-17] VITALS (7 sets, daily range): BP systolic 97–145; BP diastolic 55–78; PULSE 68–96; RESP 18–20; TEMP 97.1–98.4; O2SAT 92–98
[2016-10-17] MEDS: DILTIAZEM HCL 60 MG TAB PO SCH ×4 (01:06→21:30)
[2016-10-17] MEDS: LORazepam 2 MG/ML VIAL IV PUSH PRN ×2 (01:07→23:31)
[2016-10-17] MEDS: ONDANSETRON HCL 4 MG/2 ML VIAL IV PUSH PRN (01:10)
[2016-10-17] MEDS: hydrALAZINE HCL 50 MG TAB PO SCH ×3 (05:45→21:30)
[2016-10-17] MEDS: PIPERACIL-TAZO 4.5 GM PREMIX 100 ML IV SCH ×2 (05:45→11:04)
[2016-10-17] MEDS ORDERED: PHARMACY ORDERED LAB ONE (05:45)
[2016-10-17] MEDS: methylPREDNISolone SOD SUCC 40 MG/1 ML VIAL IV SCH (05:45)
[2016-10-17] MEDS: INSULIN NovoLIN REGULAR SUPPLEMENTAL SCALE SQ SCH ×2 (05:47→12:00)
[2016-10-17] MEDS: RESP: BUDESONIDE 0.5 MG/2 ML NEB NEB SCH ×2 (07:58→19:49)
[2016-10-17] MEDS: RESP: ALBUTEROL 2.5 MG/IPRATROPIUM 0.5 MG NEB (PRN) NEB (07:58)
[2016-10-17] MEDS: CHLORHEXIDINE 0.12% (ORAL KIT) 15 ML CUP MT SCH ×2 (08:00→20:00)
[2016-10-17] MEDS: BENEPROTEIN POWDER 1 PACK G-TUBE SCH ×3 (09:00→18:00)
[2016-10-17] MEDS: ALBUMIN HUMAN 25% 25 GM/100 ML BAGP IV SCH (10:02)
[2016-10-17] MEDS: TIOTROPIUM BROMIDE 18 MCG INH INH SCH (10:02)
[2016-10-17] MEDS: PANTOPRAZOLE SODIUM 40 MG VIAL IV PUSH SCH (10:03)
[2016-10-17] MEDS: SODIUM CHLORIDE 0.9% FLUSH 10 ML FLUSH IV FLUSH SCH ×2 (10:09→21:31)
--- NOTE | 2016-10-17 11:48 | HHI.PR ---
Subjective Remarks POD#4 s/p diverting ostomy comfortable, tolerating PO Objective Vital Signs Date Time Temp Pulse Resp B/P Pulse Ox O2 Delivery O2 Flow Rate FiO2 10/17/16 08:00 97.3 81 20 115/71 94 10/17/16 08:00 92 Nasal Cannula 2.00 10/17/16 04:47 98.4 88 18 130/78 95 10/17/16 00:25 97.8 72 18 131/61 94 10/16/16 21:35 98.0 78 18 147/71 94 10/16/16 19:47 94 Nasal Cannula 2.00 10/16/16 19:30 76 10/16/16 17:45 98.1 78 20 151/78 94 10/16/16 16:00 99.1 86 15 144/73 95 10/16/16 16:00 86 10/16/16 14:00 78 10/16/16 12:00 81 10/16/16 12:00 99.3 81 21 137/65 95 I/O 10/16/16 10/16/16 10/16/16 10/17/16 10/17/16 10/17/16 06:59 14:59 22:59 06:59 14:59 22:59 Intake Total 742 ml 720 ml 240 ml 120 ml Output Total 1550 ml 1775 ml 675 ml 1050 ml Balance -808 ml -1055 ml -435 ml -930 ml Intake Oral 60 ml 240 ml 120 ml 120 ml IV Total 186 ml 110 ml 120 ml Tube Feeding 296 ml 370 ml Other 200 ml Output Urine Total 1400 ml 1475 ml 575 ml 800 ml Stool Total 150 ml 300 ml 100 ml 250 ml # Bowel Movements 0 0 Result Diagram: 10/16/16 0604 10/16/16 0604 Objective Remarks Abdomen soft, mild distension, tender Stoma pink Assessment and Plan Assessment and Plan Mobilize D/C planning Jewell Marinelli MD Oct 17, 2016 11:48
[2016-10-17 12:23] LABS: AUTOMATED NEUTROPHIL # 15.8 TH/MM3 (1.8-7.7); BASOPHIL # 0.1 TH/MM3 (0-0.2); BASOPHIL % 0.4 % (0.0-2.0); EOSINOPHIL % 0.1 % (0.0-4.0); LYMPHOCYTE # 0.3 TH/MM3 (1.0-4.8); MEAN CORPUSCULAR HEMOGLOBIN 31.2 PG (27.0-34.0); MEAN CORPUSCULAR HGB CONC 34.6 % (32.0-36.0); MONO % 2.1 % (0.0-8.0); NEUT % 95.4 % (16.0-70.0); PLATELET COUNT 225 TH/MM3 (150-450); RED BLOOD COUNT 3.67 MIL/MM3 (4.00-5.30); RED CELL DISTRIBUTION WIDTH 13.2 % (11.6-17.2); WHITE BLOOD COUNT 16.5 TH/MM3 (4.0-11.0)
[2016-10-17 12:24] LABS: HEMO FLAGS AUTO DIFF
[2016-10-17 12:39] LABS: BICARBONATE 24.2 MEQ/L (21.0-32.0); POTASSIUM 3.8 MEQ/L (3.5-5.1)
[2016-10-17 13:11] LABS: PLATELET ESTIMATE SMEAR NORMAL (NORMAL); PLATELET MORPHOLOGY NORMAL (NORMAL); SCAN/DIFF AUTO DIFF CONFIRMED
--- NOTE | 2016-10-17 15:55 | HHI.PR ---
Subjective Remarks NG tube is out. Patient is also transition to a solid diet now and is tolerating this as far. She requests removal of her Lawson catheter. She is motivated to start PT. No nausea or vomiting when seen. Objective Vital Signs Date Time Temp Pulse Resp B/P Pulse Ox O2 Delivery O2 Flow Rate FiO2 10/17/16 12:00 97.1 75 20 97/55 95 10/17/16 08:00 97.3 81 20 115/71 94 10/17/16 08:00 92 Nasal Cannula 2.00 10/17/16 04:47 98.4 88 18 130/78 95 10/17/16 00:25 97.8 72 18 131/61 94 10/16/16 21:35 98.0 78 18 147/71 94 10/16/16 19:47 94 Nasal Cannula 2.00 10/16/16 19:30 76 10/16/16 17:45 98.1 78 20 151/78 94 10/16/16 16:00 99.1 86 15 144/73 95 10/16/16 16:00 86 I/O 10/16/16 10/16/16 10/16/16 10/17/16 10/17/16 10/17/16 07:00 15:00 23:00 07:00 15:00 23:00 Intake Total 742 ml 720 ml 240 ml 120 ml Output Total 1550 ml 1775 ml 675 ml 1050 ml Balance -808 ml -1055 ml -435 ml -930 ml Intake Oral 60 ml 240 ml 120 ml 120 ml IV Total 186 ml 110 ml 120 ml Tube Feeding 296 ml 370 ml Other 200 ml Output Urine Total 1400 ml 1475 ml 575 ml 800 ml Stool Total 150 ml 300 ml 100 ml 250 ml # Bowel Movements 0 0 Result Diagram: 10/17/16 1150 10/17/16 1150 Objective Remarks GENERAL: NAD, A&Ox3 HEAD: Normocephalic. NECK: Supple, trachea midline. No lymphadenopathy. EYES: No scleral icterus. No injection or drainage. CARDIOVASCULAR: Regular rate and rhythm without murmurs, gallops, or rubs. RESPIRATORY: Breath sounds equal bilaterally. No accessory muscle use. GASTROINTESTINAL: Abdomen soft, non-tender, nondistended. MUSCULOSKELETAL: No cyanosis, or edema. SKIN: Warm and dry. NEURO: No focal neurological deficitis. A/P Problem List: (1) Respiratory distress determined by examination ICD Code: R06.00 (2) COPD with exacerbation ICD Code: J44.1 (3) Acute respiratory failure with hypoxia ICD Code: J96.01 (4) Asthma exacerbation ICD Code: J45.901 (5) Multiple sclerosis ICD Code: G35 (6) Multiple myeloma ICD Code: C90.00 (7) Acute kidney injury ICD Code: N17.9 (8) Acute and chronic respiratory failure ICD Code: J96.20 (9) [employer] demyelination ICD Code: G37.9 (10) Tobacco abuse ICD Code: Z72.0 (11) Otitis media ICD Code: H66.90 (12) Hyperglycemia ICD Code: R73.9 (13) Acidosis ICD Code: E87.2 (14) Alcohol abuse ICD Code: F10.10 (15) Hyperphosphatemia ICD Code: E83.39 (16) Hypermagnesemia ICD Code: E83.41 (17) Acute hypernatremia ICD Code: E87.0 (18) Asystole ICD Code: I46.9 (19) Cardiac arrest ICD Code: I46.9 (20) Acute respiratory failure ICD Code: J96.00 Assessment and Plan Assessment and Plan 56-year-old female admitted secondary to respiratory distress and COPD and pneumonia. GI complications, now status post ileostomy. Acute hypercarbic respiratory failure COPD exacerbation HCAP, LLL infiltrate Bronchospasms extubated 10/14. Respiratory status is improved and stable Continue oxygen as needed Breathing treatments as needed Continue Spiriva Pulmonology following Continue Zosyn Colonic ileus Status post ileostomy placed 10/13/16 Chronic hemorrhoids Ileus Improved NG tube has been removed Follow for any worsening of GI status Regular diet for now Continue Flagyl, Zosyn, and Diflucan Changed to by mouth Protonix. Leukocytosis May be secondary to steroids Improving Continue to follow CBC History of tobacco abuse Currently weaned off all nicotine Hypertension. Follow blood pressures Currently stable Continue Cardizem Continue hydralazine Hyperglycemia Stabilized Stop Following blood sugars as closely DVT prophylaxis SCDs Andrea Meza MD Oct 17, 2016 15:55
--- NOTE | 2016-10-17 15:59 | HHI.PR ---
Subjective Remarks This note is intended to document my visit on 10/16/16 (written on 10/17/16) NG tube is present. Patient is presently nothing by mouth but she says she has an appetite. Objective Vital Signs Date Time Temp Pulse Resp B/P Pulse Ox O2 Delivery O2 Flow Rate FiO2 10/17/16 12:00 97.1 75 20 97/55 95 10/17/16 08:00 97.3 81 20 115/71 94 10/17/16 08:00 92 Nasal Cannula 2.00 10/17/16 04:47 98.4 88 18 130/78 95 10/17/16 00:25 97.8 72 18 131/61 94 10/16/16 21:35 98.0 78 18 147/71 94 10/16/16 19:47 94 Nasal Cannula 2.00 10/16/16 19:30 76 10/16/16 17:45 98.1 78 20 151/78 94 10/16/16 16:00 99.1 86 15 144/73 95 10/16/16 16:00 86 I/O 10/16/16 10/16/16 10/16/16 10/17/16 10/17/16 10/17/16 07:00 15:00 23:00 07:00 15:00 23:00 Intake Total 742 ml 720 ml 240 ml 120 ml Output Total 1550 ml 1775 ml 675 ml 1050 ml Balance -808 ml -1055 ml -435 ml -930 ml Intake Oral 60 ml 240 ml 120 ml 120 ml IV Total 186 ml 110 ml 120 ml Tube Feeding 296 ml 370 ml Other 200 ml Output Urine Total 1400 ml 1475 ml 575 ml 800 ml Stool Total 150 ml 300 ml 100 ml 250 ml # Bowel Movements 0 0 Result Diagram: 10/17/16 1150 10/17/16 1150 Objective Remarks GENERAL: NAD, A&Ox3 HEAD: Normocephalic. NG tube is in place. NECK: Supple, trachea midline. No lymphadenopathy. EYES: No scleral icterus. No injection or drainage. CARDIOVASCULAR: Regular rate and rhythm without murmurs, gallops, or rubs. RESPIRATORY: Breath sounds equal bilaterally. No accessory muscle use. GASTROINTESTINAL: Abdomen soft, non-tender, nondistended. MUSCULOSKELETAL: No cyanosis, or edema. SKIN: Warm and dry. NEURO: No focal neurological deficitis. A/P Problem List: (1) Respiratory distress determined by examination ICD Code: R06.00 (2) COPD with exacerbation ICD Code: J44.1 (3) Acute respiratory failure with hypoxia ICD Code: J96.01 (4) Asthma exacerbation ICD Code: J45.901 (5) Multiple sclerosis ICD Code: G35 (6) Multiple myeloma ICD Code: C90.00 (7) Acute kidney injury ICD Code: N17.9 (8) Acute and chronic respiratory failure ICD Code: J96.20 (9) [employer] demyelination ICD Code: G37.9 (10) Tobacco abuse ICD Code: Z72.0 (11) Otitis media ICD Code: H66.90 (12) Hyperglycemia ICD Code: R73.9 (13) Acidosis ICD Code: E87.2 (14) Alcohol abuse ICD Code: F10.10 (15) Hyperphosphatemia ICD Code: E83.39 (16) Hypermagnesemia ICD Code: E83.41 (17) Acute hypernatremia ICD Code: E87.0 (18) Asystole ICD Code: I46.9 (19) Cardiac arrest ICD Code: I46.9 (20) Acute respiratory failure ICD Code: J96.00 Assessment and Plan Assessment and Plan 56-year-old female admitted secondary to respiratory distress and COPD and pneumonia. GI complications, now status post ileostomy. Start physical therapy. Acute hypercarbic respiratory failure COPD exacerbation HCAP, LLL infiltrate Bronchospasms extubated 10/14. Respiratory status is improved and stable Continue oxygen as needed Breathing treatments as needed Continue Spiriva Pulmonology following Continue Zosyn Colonic ileus Status post ileostomy placed 10/13/16 Chronic hemorrhoids Speech therapy evaluation to determine if NG tube can be removed. NG tube has been removed Follow for any worsening of GI status Regular diet for now Continue Flagyl, Zosyn, and Diflucan Changed to by mouth Protonix. Leukocytosis May be secondary to steroids Improving Continue to follow CBC History of tobacco abuse Currently weaned off all nicotine Hypertension. Follow blood pressures Currently stable Continue Cardizem Continue hydralazine Hyperglycemia Stabilized Stop Following blood sugars as closely Global deconditioning Approximately 22 days in ICU much of which was on a ventilator Start physical therapy Start Occupational therapy DVT prophylaxis SCDs Andrea Meza MD Oct 17, 2016 15:58
--- NOTE | 2016-10-17 16:29 | HHI.IDPN ---
Subjective Subjective Remarks Patient is a 56-year-old female, with known COPD, presented to the hospital complaining of severe and worsening shortness of breath, cough. There was no fever or chills nausea or vomiting, abdominal pain, or any other GI complaints. Her initial chest x-ray was normal. She was admitted for COPD exacerbation, and on her first hospital day her shortness of breath got progressively worse so she ended up getting intubated. Patient has been on the vent since. Her cultures have been negative. She was laced on steroids. She started having problem with significant ileus, and patient has had 2 decompressive colonoscopies done. No abnormalities seen during her colonoscopy , no obstruction, no mass, no pseudomembrane. Since October 02 her white count started increasing. Patient has been on Zosyn, and Flagyl. Her WBC continues to increase. There is no record of any diarrhea. She has not been febrile. Notes reviewed Temps ok Ileostomy working Tolerating diet Operative notes reviewed - no perforation identified, had serosal splits WBC slowly decreasing BP ok Antibiotics Diflucan Zosyn Vancomycin Lines PIV Past Medical History COPD Hypertension Past Surgical History Tubal ligation Allergies: Coded Allergies: No Known Allergies (Unverified , 09/24/16) Objective . Vital Signs Date Time Temp Pulse Resp B/P Pulse Ox O2 Delivery O2 Flow Rate FiO2 10/17/16 12:00 97.1 75 20 97/55 95 10/17/16 08:00 97.3 81 20 115/71 94 10/17/16 08:00 92 Nasal Cannula 2.00 10/17/16 04:47 98.4 88 18 130/78 95 10/17/16 00:25 97.8 72 18 131/61 94 10/16/16 21:35 98.0 78 18 147/71 94 10/16/16 19:47 94 Nasal Cannula 2.00 10/16/16 19:30 76 10/16/16 17:45 98.1 78 20 151/78 94 10/16/16 10/16/16 10/17/16 14:59 22:59 06:59 Intake Total 720 ml 240 ml 120 ml Output Total 1775 ml 675 ml 1050 ml Balance -1055 ml -435 ml -930 ml Intake Oral 240 ml 120 ml 120 ml IV Total 110 ml 120 ml Tube Feeding 370 ml Output Urine Total 1475 ml 575 ml 800 ml Stool Total 300 ml 100 ml 250 ml # Bowel Movements 0 0 . Laboratory Tests Test 10/16/16 10/17/16 06:04 11:50 White Blood Count 21.6 TH/MM3 16.5 TH/MM3 Red Blood Count 3.84 MIL/MM3 3.67 MIL/MM3 Hemoglobin 11.4 GM/DL 11.4 GM/DL Hematocrit 34.4 % 33.0 % Mean Corpuscular Volume 89.6 FL 90.0 FL Mean Corpuscular Hemoglobin 29.6 PG 31.2 PG Mean Corpuscular Hemoglobin 33.0 % 34.6 % Concent Red Cell Distribution Width 13.4 % 13.2 % Platelet Count 195 TH/MM3 225 TH/MM3 Mean Platelet Volume 9.8 FL 9.0 FL Neutrophils (%) (Auto) 91.5 % 95.4 % Lymphocytes (%) (Auto) 3.0 % 2.0 % Monocytes (%) (Auto) 4.7 % 2.1 % Eosinophils (%) (Auto) 0.6 % 0.1 % Basophils (%) (Auto) 0.2 % 0.4 % Neutrophils # (Auto) 19.7 TH/MM3 15.8 TH/MM3 Lymphocytes # (Auto) 0.6 TH/MM3 0.3 TH/MM3 Monocytes # (Auto) 1.0 TH/MM3 0.3 TH/MM3 Eosinophils # (Auto) 0.1 TH/MM3 0.0 TH/MM3 Basophils # (Auto) 0.0 TH/MM3 0.1 TH/MM3 CBC Comment DIFF FINAL AUTO DIFF Differential Comment AUTO DIFF CONFIRMED Platelet Estimate NORMAL Platelet Morphology Comment NORMAL Red Cell Morphology Comment NORMAL Laboratory Tests Test 10/16/16 10/17/16 06:04 11:50 Sodium Level 135 MEQ/L 133 MEQ/L Potassium Level 4.0 MEQ/L 3.8 MEQ/L Chloride Level 100 MEQ/L 99 MEQ/L Carbon Dioxide Level 25.9 MEQ/L 24.2 MEQ/L Anion Gap 9 MEQ/L 10 MEQ/L Blood Urea Nitrogen 17 MG/DL 19 MG/DL Creatinine 0.33 MG/DL 0.47 MG/DL Estimat Glomerular Filtration 206 ML/MIN 137 ML/MIN Rate Random Glucose 106 MG/DL 144 MG/DL Calcium Level 8.7 MG/DL 8.9 MG/DL Imaging Abdomen X-Ray 10/08/16 0000 Signed Impressions: Service Date/Time: September 08:39 - CONCLUSION: Slight improvement in gaseous distention of bowel Oliver Harman MD Chest X-Ray 10/07/16 0000 Signed Impressions: Service Date/Time: Friday, October 07, 2016 04:36 - CONCLUSION: Left lower lobe consolidation. Todd Ortega MD Abdomen X-Ray 10/06/16 0600 Signed Impressions: Service Date/Time: Thursday, October 06, 2016 03:45 - CONCLUSION: Slight decreased bowel dilatation. Todd Ortega MD Chest X-Ray 10/04/16 0000 Signed Impressions: Service Date/Time: Tuesday, October 04, 2016 09:36 - CONCLUSION: Suspected atelectasis at the right lung base. Otherwise, no acute finding is identified. Oliver Garcia MD Abdomen/Pelvis CT 10/04/16 0000 Signed Impressions: Service Date/Time: Tuesday, October 04, 2016 16:28 - CONCLUSION: 1. Severe colonic ileus which has increased slightly since October 01 with colon now measuring up to about 9.4 cm in diameter. Air is seen progressing distally into the rectosigmoid. 2. Mild anasarca. 3. Lawson catheter tip in bladder. 4. Mild right basilar airspace disease with dependent atelectasis. Jay Jay Burgess MD Physical Exam GENERAL: Awake and alert, on nasal O2, NAD SKIN: Warm and dry. No generalized rash, no ecchymoses EYES: [place] conjunctiva. . No scleral icterus. No injection or drainage. EARS, NOSE AND THROAT: Nose without bleeding or purulent nasal discharge. NECK: Trachea midline. Supple and not tender, no meningeal signs CARDIOVASCULAR: Regular rate and rhythm. No murmurs, rubs or gallops heard RESPIRATORY: Scattered rhonchi, decreased at bases ABDOMEN: Globular and softer, bowel sounds are hypoactive, tender on R, dry midline incision. Ileostomy working EXTREMITIES: No clubbing, cyanosis. Has edema of feet. Warm. NEUROLOGICAL: Non-focal PSYCHIATRIC: cooperative LINE: No evidence of infection : Lawson in place, urine looks clear Assessment & Plan Remarks IMPRESSION Leukocytosis, due to intraabdominal process, better - S/P lap Respiratory failure, has L base opacity, ?PNA - S/P extubation 10/10 COPD Ileus, severe, has had 2 decompression - C/O increased abdominal pain - AXR seems less gas - has had multiple decompression - C diff negative Respiratory failure post op, extubated Post op low grade temps RECOMMENDATION Stop Diflucan Change to Levaquin and Flagyl x 7 days Follow CBC Follow temps Monitor progress Chinyere Atkins MD Oct 17, 2016 16:29
[2016-10-17] MEDS: LEVOFLOXACIN 750 MG TAB PO SCH (18:12)
[2016-10-17] MEDS: metroNIDAZOLE 500 MG TAB PO SCH ×2 (18:12→21:29)
[2016-10-17] MEDS: RESP: ALBUTEROL 2.5 MG/IPRATROPIUM 0.5 MG NEB (SCH) NEB (19:50)
[2016-10-18] VITALS (7 sets, daily range): BP systolic 117–138; BP diastolic 58–77; PULSE 75–80; RESP 19–22; TEMP 97.5–97.9; O2SAT 94–98
[2016-10-18] MEDS: DILTIAZEM HCL 60 MG TAB PO SCH ×4 (01:58→21:40)
[2016-10-18] MEDS: LORazepam 2 MG/ML VIAL IV PUSH PRN ×3 (04:20→22:51)
[2016-10-18 05:22] LABS: AUTOMATED NEUTROPHIL # 11.7 TH/MM3 (1.8-7.7); BASOPHIL % 0.1 % (0.0-2.0); EOSINOPHIL # 0.2 TH/MM3 (0-0.4); EOSINOPHIL % 1.2 % (0.0-4.0); HEMATOCRIT 33.9 % (35.0-46.0); LYMPHOCYTE # 1.3 TH/MM3 (1.0-4.8); MEAN CELL VOLUME 90.1 FL (80.0-100.0); MEAN CORPUSCULAR HEMOGLOBIN 29.4 PG (27.0-34.0); MEAN CORPUSCULAR HGB CONC 32.7 % (32.0-36.0); MONO % 6.4 % (0.0-8.0); NEUT % 83.3 % (16.0-70.0); PLATELET COUNT 230 TH/MM3 (150-450); RED BLOOD COUNT 3.76 MIL/MM3 (4.00-5.30); RED CELL DISTRIBUTION WIDTH 13.1 % (11.6-17.2); WHITE BLOOD COUNT 14.1 TH/MM3 (4.0-11.0)
[2016-10-18 05:36] LABS: HEMO FLAGS AUTO DIFF
[2016-10-18] MEDS: hydrALAZINE HCL 50 MG TAB PO SCH ×3 (05:37→21:41)
[2016-10-18] MEDS: metroNIDAZOLE 500 MG TAB PO SCH ×3 (05:50→21:40)
[2016-10-18 06:20] LABS: ANION GAP 11 MEQ/L (5-15); AST (GOT) 47 U/L (15-37); BICARBONATE 24.2 MEQ/L (21.0-32.0); CHLORIDE 101 MEQ/L (98-107); GLOMERULAR FILTRATION RATE 222 ML/MIN (>89); POTASSIUM 3.2 MEQ/L (3.5-5.1); SODIUM (NA) 136 MEQ/L (136-145)
[2016-10-18 06:26] LABS: ALKALINE PHOSPHATASE 74 U/L (45-117); ALT (GPT) 207 U/L (10-53); BLOOD UREA NITROGEN 18 MG/DL (7-18); TOTAL BILIRUBIN ADULT 0.8 MG/DL (0.2-1.0)
[2016-10-18] MEDS: RESP: ALBUTEROL 2.5 MG/IPRATROPIUM 0.5 MG NEB (PRN) NEB (06:38)
[2016-10-18 07:41] LABS: BANDS 7 % (0-6); MYELOCYTES 2 % (0-0); POLYS (SEG NEUTROPHILS) 76 % (16-70); WBC DIFF SAMPLE 100
[2016-10-18 07:42] LABS: PLATELET ESTIMATE SMEAR NORMAL (NORMAL); PLATELET MORPHOLOGY NORMAL (NORMAL); SCAN/DIFF FINAL DIFF MANUAL
[2016-10-18] MEDS ORDERED: POTASSIUM CHLORIDE 10 MEQ CONTROLLED RELEASE TAB PO ONE (07:45)
[2016-10-18] MEDS: CHLORHEXIDINE 0.12% (ORAL KIT) 15 ML CUP MT SCH ×2 (08:00→20:00)
[2016-10-18] MEDS: RESP: ALBUTEROL 2.5 MG/IPRATROPIUM 0.5 MG NEB (SCH) NEB ×3 (08:20→21:27)
[2016-10-18] MEDS: BENEPROTEIN POWDER 1 PACK G-TUBE SCH (09:00)
[2016-10-18] MEDS: PANTOPRAZOLE SOD 20 MG DELAYED RELEASE TAB PO SCH (09:00)
[2016-10-18] MEDS: ALBUMIN HUMAN 25% 25 GM/100 ML BAGP IV SCH (09:00)
[2016-10-18] MEDS: TIOTROPIUM BROMIDE 18 MCG INH INH SCH (09:00)
[2016-10-18] MEDS: SODIUM CHLORIDE 0.9% FLUSH 10 ML FLUSH IV FLUSH SCH ×2 (09:00→21:41)
[2016-10-18] MEDS: methylPREDNISolone SOD SUCC 40 MG/1 ML VIAL IV SCH (09:00)
[2016-10-18] MEDS: MORPHINE SULFATE 4 MG/ML INJ IV PUSH PRN ×2 (11:45→22:23)
--- NOTE | 2016-10-18 14:45 | HHI.PR ---
Subjective Remarks Hypokalemia is improved. Physical therapy is started. Patient requests weaned from oxygen. Objective Vital Signs Date Time Temp Pulse Resp B/P (MAP) Pulse Ox O2 Delivery O2 Flow Rate FiO2 10/18/16 07:30 75 10/18/16 04:00 97.6 77 19 123/72 (89) 96 10/18/16 00:00 97.6 80 19 138/77 (97) 94 10/17/16 20:00 98.1 68 19 145/73 (97) 98 10/17/16 20:00 80 10/17/16 19:54 98 Nasal Cannula 2.00 10/17/16 16:00 98.1 77 20 116/58 (77) 96 I/O 10/17/16 10/17/16 10/17/16 10/18/16 10/18/16 10/18/16 07:00 15:00 23:00 07:00 15:00 23:00 Intake Total 120 ml 480 ml 520 ml 420 ml Output Total 1050 ml 1450 ml 150 ml 200 ml Balance -930 ml -970 ml 370 ml 220 ml Intake Oral 120 ml 480 ml 520 ml 420 ml Output Urine Total 800 ml 1200 ml Stool Total 250 ml 250 ml 150 ml 200 ml # Voids 1 2 # Bowel Movements 0 0 Result Diagram: 10/18/1643710/18/16437 Objective Remarks GENERAL: NAD, A&Ox3 HEAD: Normocephalic. NG tube is in place. NECK: Supple, trachea midline. No lymphadenopathy. EYES: No scleral icterus. No injection or drainage. CARDIOVASCULAR: Regular rate and rhythm without murmurs, gallops, or rubs. RESPIRATORY: Breath sounds equal bilaterally. No accessory muscle use. GASTROINTESTINAL: Abdomen soft, non-tender, nondistended. MUSCULOSKELETAL: No cyanosis, or edema. SKIN: Warm and dry. NEURO: No focal neurological deficitis. A/P Problem List: (1) Respiratory distress determined by examination ICD Code: R06.00 - Dyspnea, unspecified Status: Acute (2) COPD with exacerbation ICD Code: J44.1 - Chronic obstructive pulmonary disease with (acute) exacerbation Status: Acute (3) Acute respiratory failure with hypoxia ICD Code: J96.01 - Acute respiratory failure with hypoxia Status: Acute (4) Asthma exacerbation ICD Code: J45.901 - Unspecified asthma with (acute) exacerbation Status: Acute (5) Multiple sclerosis ICD Code: G35 - Multiple sclerosis Status: Acute (6) Multiple myeloma ICD Code: C90.00 - Multiple myeloma not having achieved remission Status: Acute (7) Acute kidney injury ICD Code: N17.9 - Acute kidney failure, unspecified Status: Resolved (8) Acute and chronic respiratory failure ICD Code: J96.20 - Acute and chronic respiratory failure, unspecified whether with hypoxia or hypercapnia Status: Chronic (9) [employer]CH[employer]ORDIN[employer] demyelination ICD Code: G37.9 - Demyelinating disease of central nervous system, unspecified Status: Acute (10) Tobacco abuse ICD Code: Z72.0 - Tobacco use Status: Chronic (11) Otitis media ICD Code: H66.90 - Otitis media, unspecified, unspecified ear Status: Acute (12) Hyperglycemia ICD Code: R73.9 - Hyperglycemia, unspecified Status: Resolved (13) Acidosis ICD Code: E87.2 - Acidosis Status: Resolved (14) Alcohol abuse ICD Code: F10.10 - Alcohol abuse, uncomplicated Status: Chronic (15) Hyperphosphatemia ICD Code: E83.39 - Other disorders of phosphorus metabolism Status: Resolved (16) Hypermagnesemia ICD Code: E83.41 - Hypermagnesemia Status: Acute (17) Acute hypernatremia ICD Code: E87.0 - Hyperosmolality and hypernatremia Status: Acute (18) Asystole ICD Code: I46.9 - Cardiac arrest, cause unspecified Status: Resolved (19) Cardiac arrest ICD Code: I46.9 - Cardiac arrest, cause unspecified Status: Resolved (20) Acute respiratory failure ICD Code: J96.00 - Acute respiratory failure, unspecified whether with hypoxia or hypercapnia Status: Acute Assessment and Plan Assessment and Plan 56-year-old female admitted secondary to respiratory distress and COPD and pneumonia. GI complications, now status post ileostomy. Physical therapy has started. Patient is tolerating physical therapy but has much difficulty moving. Wean oxygen and follow oxygen saturations. Acute hypercarbic respiratory failure COPD exacerbation HCAP, LLL infiltrate Bronchospasms extubated 10/14. Respiratory status is improved and stable Continue oxygen as needed Breathing treatments as needed Continue Spiriva Pulmonology following Continue Zosyn Colonic ileus Status post ileostomy placed 10/13/16 Chronic hemorrhoids Speech therapy evaluation to determine if NG tube can be removed. NG tube has been removed Follow for any worsening of GI status Regular diet for now Continue Flagyl, Zosyn, and Diflucan Changed to by mouth Protonix. Leukocytosis May be secondary to steroids Improving Continue to follow CBC History of tobacco abuse Currently weaned off all nicotine Hypertension. Follow blood pressures Currently stable Continue Cardizem Continue hydralazine Hyperglycemia Stabilized Stop Following blood sugars as closely Global deconditioning Approximately 22 days in ICU much of which was on a ventilator Start physical therapy Start Occupational therapy DVT prophylaxis SCDs Andrea Meza MD Oct 18, 2016 14:45
[2016-10-18] MEDS: LEVOFLOXACIN 750 MG TAB PO SCH (18:25)
[2016-10-18] MEDS: RESP: BUDESONIDE 0.5 MG/2 ML NEB NEB SCH (21:27)
[2016-10-19] VITALS (9 sets, daily range): BP systolic 98–139; BP diastolic 54–73; PULSE 84–101; RESP 16–20; TEMP 97.3–98.7; O2SAT 93–97
[2016-10-19] MEDS: DILTIAZEM HCL 60 MG TAB PO SCH ×4 (01:35→21:02)
[2016-10-19] MEDS: LORazepam 2 MG/ML VIAL IV PUSH PRN ×4 (02:51→22:49)
[2016-10-19] MEDS: metroNIDAZOLE 500 MG TAB PO SCH ×2 (05:45→13:11)
[2016-10-19] MEDS: hydrALAZINE HCL 50 MG TAB PO SCH ×3 (05:45→21:06)
[2016-10-19] MEDS: RESP: ALBUTEROL 2.5 MG/IPRATROPIUM 0.5 MG NEB (SCH) NEB ×3 (07:49→19:20)
[2016-10-19] MEDS: RESP: BUDESONIDE 0.5 MG/2 ML NEB NEB SCH ×2 (07:49→19:20)
[2016-10-19] MEDS: CHLORHEXIDINE 0.12% (ORAL KIT) 15 ML CUP MT SCH ×2 (08:00→20:00)
[2016-10-19] MEDS: BENEPROTEIN POWDER 1 PACK G-TUBE SCH ×3 (09:00→16:42)
[2016-10-19] MEDS: PANTOPRAZOLE SOD 20 MG DELAYED RELEASE TAB PO SCH (09:17)
[2016-10-19] MEDS: TIOTROPIUM BROMIDE 18 MCG INH INH SCH (09:18)
[2016-10-19] MEDS: SODIUM CHLORIDE 0.9% FLUSH 10 ML FLUSH IV FLUSH SCH ×2 (09:18→21:02)
[2016-10-19] MEDS: methylPREDNISolone SOD SUCC 40 MG/1 ML VIAL IV SCH (09:18)
[2016-10-19] MEDS: ALBUMIN HUMAN 25% 25 GM/100 ML BAGP IV SCH (09:18)
[2016-10-19 09:38] LABS: HEMATOCRIT 35.6 % (35.0-46.0); MEAN CELL VOLUME 88.7 FL (80.0-100.0); MEAN CORPUSCULAR HEMOGLOBIN 29.3 PG (27.0-34.0); MEAN CORPUSCULAR HGB CONC 33.1 % (32.0-36.0); PLATELET COUNT 248 TH/MM3 (150-450); RED BLOOD COUNT 4.01 MIL/MM3 (4.00-5.30); RED CELL DISTRIBUTION WIDTH 13.1 % (11.6-17.2); REVIEW FLAG FINAL
[2016-10-19 10:05] LABS: BICARBONATE 23.6 MEQ/L (21.0-32.0); POTASSIUM 3.1 MEQ/L (3.5-5.1)
[2016-10-19] MEDS ORDERED: POTASSIUM CHLORIDE 10 MEQ CONTROLLED RELEASE TAB PO ONE (10:45)
--- NOTE | 2016-10-19 11:41 | PD.WCN.NOT ---
Wound Consult Description: Consult placed per Dr Yo for "stoma Communicated with: Patients boyfriends mother was in room and asking questions about her medications and her surgery. It was explained to her that none of her questions could be answered unless consent was given by patient who was sound asleep at this time. She began pressing for more information and stated that "it is written on the board" and asked more questions regarding her medication. Again, it was explained to her that the information could not be given to her and she was educated that information regarding the patient is private and that magnetic tape typewriter operator would come back later when patient was awake. Recommendation: NONE at this time. Ostomy Type: Ileostomy Surgeon: Victor Manuel Yo MD Date of Surgery: Oct 13, 2016 Complete: Education materials Educated patient on: Patient was sleeping on her left side, not awakening to voices, no teaching was done at this time. Will follow up later for teaching. No information was given to patient nor the boyfriends mother despite many questions. Nell Nur [facility] Oct 19, 2016 11:41
--- NOTE | 2016-10-19 14:25 | HHI.PR ---
Subjective Remarks Hypokalemia still present this morning. Potassium levels replace. No complaints from the patient. Objective Vital Signs Date Time Temp Pulse Resp B/P (MAP) Pulse Ox O2 Delivery O2 Flow Rate FiO2 10/19/16 12:00 98.7 101 18 136/65 (88) 93 10/19/16 08:20 Room Air 10/19/16 08:00 97.3 92 19 118/58 (78) 94 10/19/16 07:55 93 21 10/19/16 04:00 Room Air 10/19/16 04:00 97.4 84 19 139/73 (95) 93 10/19/16 00:00 97.8 87 16 98/54 (69) 93 10/19/16 00:00 Room Air 10/18/16 22:00 Room Air 10/18/16 21:32 97 Nasal Cannula 2.00 10/18/16 20:00 Nasal Cannula 1.00 10/18/16 20:00 97.9 75 22 117/58 (77) 95 10/18/16 20:00 80 10/18/16 16:07 97.5 79 19 118/66 (83) 96 I/O 10/18/16 10/18/16 10/18/16 10/19/16 10/19/16 10/19/16 06:59 14:59 22:59 06:59 14:59 22:59 Intake Total 420 ml 360 ml 482 ml Output Total 200 ml 400 ml 200 ml Balance 220 ml -40 ml 282 ml Intake Oral 420 ml 360 ml 480 ml IV Total 2 ml Output Urine Total 400 ml Stool Total 200 ml 200 ml # Voids 2 5 # Bowel Movements 1 Result Diagram: 10/19/1690410/19/16904 Objective Remarks GENERAL: NAD, A&Ox3 HEAD: Normocephalic. NG tube is in place. NECK: Supple, trachea midline. No lymphadenopathy. EYES: No scleral icterus. No injection or drainage. CARDIOVASCULAR: Regular rate and rhythm without murmurs, gallops, or rubs. RESPIRATORY: Breath sounds equal bilaterally. No accessory muscle use. GASTROINTESTINAL: Abdomen soft, non-tender, nondistended. MUSCULOSKELETAL: No cyanosis, or edema. SKIN: Warm and dry. NEURO: No focal neurological deficitis. A/P Problem List: (1) Respiratory distress determined by examination ICD Code: R06.00 - Dyspnea, unspecified Status: Acute (2) COPD with exacerbation ICD Code: J44.1 - Chronic obstructive pulmonary disease with (acute) exacerbation Status: Acute (3) Acute respiratory failure with hypoxia ICD Code: J96.01 - Acute respiratory failure with hypoxia Status: Acute (4) Asthma exacerbation ICD Code: J45.901 - Unspecified asthma with (acute) exacerbation Status: Acute (5) Multiple sclerosis ICD Code: G35 - Multiple sclerosis Status: Acute (6) Multiple myeloma ICD Code: C90.00 - Multiple myeloma not having achieved remission Status: Acute (7) Acute kidney injury ICD Code: N17.9 - Acute kidney failure, unspecified Status: Resolved (8) Acute and chronic respiratory failure ICD Code: J96.20 - Acute and chronic respiratory failure, unspecified whether with hypoxia or hypercapnia Status: Chronic (9) [employer]PLANE [employer]ER demyelination ICD Code: G37.9 - Demyelinating disease of central nervous system, unspecified Status: Acute (10) Tobacco abuse ICD Code: Z72.0 - Tobacco use Status: Chronic (11) Otitis media ICD Code: H66.90 - Otitis media, unspecified, unspecified ear Status: Acute (12) Hyperglycemia ICD Code: R73.9 - Hyperglycemia, unspecified Status: Resolved (13) Acidosis ICD Code: E87.2 - Acidosis Status: Resolved (14) Alcohol abuse ICD Code: F10.10 - Alcohol abuse, uncomplicated Status: Chronic (15) Hyperphosphatemia ICD Code: E83.39 - Other disorders of phosphorus metabolism Status: Resolved (16) Hypermagnesemia ICD Code: E83.41 - Hypermagnesemia Status: Acute (17) Acute hypernatremia ICD Code: E87.0 - Hyperosmolality and hypernatremia Status: Acute (18) Asystole ICD Code: I46.9 - Cardiac arrest, cause unspecified Status: Resolved (19) Cardiac arrest ICD Code: I46.9 - Cardiac arrest, cause unspecified Status: Resolved (20) Acute respiratory failure ICD Code: J96.00 - Acute respiratory failure, unspecified whether with hypoxia or hypercapnia Status: Acute Assessment and Plan Assessment and Plan 56-year-old female admitted secondary to respiratory distress and COPD and pneumonia. GI complications, now status post ileostomy. Continue physical therapy. Continue oxygen supplementation as needed. Discontinue Accu-Cheks. Monitor potassium levels replace as needed. Labs ordered. Acute hypercarbic respiratory failure COPD exacerbation HCAP, LLL infiltrate Bronchospasms extubated 10/14. Respiratory status is improved and stable Continue oxygen as needed Breathing treatments as needed Continue Spiriva Pulmonology following Continue Zosyn Colonic ileus Status post ileostomy placed 10/13/16 Chronic hemorrhoids Speech therapy evaluation to determine if NG tube can be removed. NG tube has been removed Follow for any worsening of GI status Regular diet for now Continue Flagyl, Zosyn, and Diflucan Changed to by mouth Protonix. Leukocytosis May be secondary to steroids Improving Continue to follow CBC History of tobacco abuse Currently weaned off all nicotine Hypertension. Follow blood pressures Currently stable Continue Cardizem Continue hydralazine Hyperglycemia Stabilized Stop Following blood sugars as closely Global deconditioning Approximately 22 days in ICU much of which was on a ventilator Start physical therapy Start Occupational therapy DVT prophylaxis SCDs Andrea Meza MD Oct 19, 2016 14:25
--- NOTE | 2016-10-19 14:26 | HHI.IDPN ---
Subjective Subjective Remarks Patient is a 56-year-old female, with known COPD, presented to the hospital complaining of severe and worsening shortness of breath, cough. There was no fever or chills nausea or vomiting, abdominal pain, or any other GI complaints. Her initial chest x-ray was normal. She was admitted for COPD exacerbation, and on her first hospital day her shortness of breath got progressively worse so she ended up getting intubated. Patient has been on the vent since. Her cultures have been negative. She was laced on steroids. She started having problem with significant ileus, and patient has had 2 decompressive colonoscopies done. No abnormalities seen during her colonoscopy , no obstruction, no mass, no pseudomembrane. Since October 02 her white count started increasing. Patient has been on Zosyn, and Flagyl. Her WBC continues to increase. There is no record of any diarrhea. She has not been febrile. Notes reviewed Temps ok Ileostomy working Tolerating diet BP ok Sats ok on RA WBC at 14K Antibiotics Levaquin Flagyl Lines PIV Past Medical History Reviewed Allergies: Coded Allergies: No Known Allergies (Unverified , 09/24/16) Objective . Vital Signs Date Time Temp Pulse Resp B/P (MAP) Pulse Ox O2 Delivery O2 Flow Rate FiO2 10/19/16 12:00 98.7 101 18 136/65 (88) 93 10/19/16 08:20 Room Air 10/19/16 08:00 97.3 92 19 118/58 (78) 94 10/19/16 07:55 93 21 10/19/16 04:00 Room Air 10/19/16 04:00 97.4 84 19 139/73 (95) 93 10/19/16 00:00 97.8 87 16 98/54 (69) 93 10/19/16 00:00 Room Air 10/18/16 22:00 Room Air 10/18/16 21:32 97 Nasal Cannula 2.00 10/18/16 20:00 Nasal Cannula 1.00 10/18/16 20:00 97.9 75 22 117/58 (77) 95 10/18/16 20:00 80 10/18/16 16:07 97.5 79 19 118/66 (83) 96 . Laboratory Tests Test 10/18/16 04:38 10/19/16 09:05 White Blood Count 14.1 TH/MM3 14.0 TH/MM3 Red Blood Count 3.76 MIL/MM3 4.01 MIL/MM3 Hemoglobin 11.1 GM/DL 11.8 GM/DL Hematocrit 33.9 % 35.6 % Mean Corpuscular Volume 90.1 FL 88.7 FL Mean Corpuscular Hemoglobin 29.4 PG 29.3 PG Mean Corpuscular Hemoglobin Concent 32.7 % 33.1 % Red Cell Distribution Width 13.1 % 13.1 % Platelet Count 230 TH/MM3 248 TH/MM3 Mean Platelet Volume 8.8 FL 8.7 FL Neutrophils (%) (Auto) 83.3 % Lymphocytes (%) (Auto) 9.0 % Monocytes (%) (Auto) 6.4 % Eosinophils (%) (Auto) 1.2 % Basophils (%) (Auto) 0.1 % Neutrophils # (Auto) 11.7 TH/MM3 Lymphocytes # (Auto) 1.3 TH/MM3 Monocytes # (Auto) 0.9 TH/MM3 Eosinophils # (Auto) 0.2 TH/MM3 Basophils # (Auto) 0.0 TH/MM3 CBC Comment AUTO DIFF Differential Total Cells Counted 100 Neutrophils % (Manual) 76 % Band Neutrophils % 7 % Lymphocytes % 7 % Monocytes % 8 % Neutrophils # (Manual) 12.0 TH/MM3 Myelocytes 2 % Differential Comment FINAL DIFF MANUAL Platelet Estimate NORMAL Platelet Morphology Comment NORMAL Laboratory Tests Test 10/18/16 04:38 10/19/16 09:05 Blood Urea Nitrogen 18 MG/DL 17 MG/DL Creatinine 0.31 MG/DL 0.33 MG/DL Random Glucose 83 MG/DL 105 MG/DL Total Protein 6.6 GM/DL Albumin 3.4 GM/DL Calcium Level 9.0 MG/DL 9.4 MG/DL Alkaline Phosphatase 74 U/L Aspartate Amino Transf (AST/SGOT) 47 U/L Alanine Aminotransferase (ALT/SGPT) 207 U/L Total Bilirubin 0.8 MG/DL Sodium Level 136 MEQ/L 135 MEQ/L Potassium Level 3.2 MEQ/L 3.1 MEQ/L Chloride Level 101 MEQ/L 101 MEQ/L Carbon Dioxide Level 24.2 MEQ/L 23.6 MEQ/L Anion Gap 11 MEQ/L 10 MEQ/L Estimat Glomerular Filtration Rate 222 ML/MIN 206 ML/MIN Imaging Abdomen X-Ray 10/08/16 0000 Signed Impressions: Service Date/Time: September 08:39 - CONCLUSION: Slight improvement in gaseous distention of bowel Oliver Harman MD Chest X-Ray 10/07/16 0000 Signed Impressions: Service Date/Time: Friday, October 07, 2016 04:36 - CONCLUSION: Left lower lobe consolidation. Todd Ortega MD Abdomen X-Ray 10/06/16 0600 Signed Impressions: Service Date/Time: Thursday, October 06, 2016 03:45 - CONCLUSION: Slight decreased bowel dilatation. Todd Ortega MD Chest X-Ray 10/04/16 0000 Signed Impressions: Service Date/Time: Tuesday, October 04, 2016 09:36 - CONCLUSION: Suspected atelectasis at the right lung base. Otherwise, no acute finding is identified. Oliver Garcia MD Abdomen/Pelvis CT 10/04/16 0000 Signed Impressions: Service Date/Time: Tuesday, October 04, 2016 16:28 - CONCLUSION: 1. Severe colonic ileus which has increased slightly since October 01 with colon now measuring up to about 9.4 cm in diameter. Air is seen progressing distally into the rectosigmoid. 2. Mild anasarca. 3. Lawson catheter tip in bladder. 4. Mild right basilar airspace disease with dependent atelectasis. Jay Jay Burgess MD Physical Exam GENERAL: Awake and alert, NAD SKIN: Warm and dry. No generalized rash, no ecchymoses EYES: Larke conjunctiva. . No scleral icterus. No injection or drainage. EARS, NOSE AND THROAT: MOist oral m ucosa NECK: Trachea midline. Supple and not tender, no meningeal signs CARDIOVASCULAR: Regular rate and rhythm. No murmurs, rubs or gallops heard RESPIRATORY: Decreased BS at bases ABDOMEN: Globular and softer, bowel sounds are hypoactive, tender on R, dry midline incision. Ileostomy working EXTREMITIES: No clubbing, cyanosis. Has edema of feet. Warm. NEUROLOGICAL: Non-focal PSYCHIATRIC: cooperative LINE: No evidence of infection : Lawson in place, urine looks clear Assessment & Plan Remarks IMPRESSION Leukocytosis, due to intraabdominal process, better - S/P lap Respiratory failure, has L base opacity, ?PNA - S/P extubation 10/10 COPD Respiratory failure post op, extubated Post op low grade temps, resolved RECOMMENDATION Continue Levaquin and Flagyl x 7 days - to complete 10/24 She is doing clinically better from ID standpoint I will sign off Please call if with any ID issue pr question Chinyere Atkins MD Oct 19, 2016 14:26
[2016-10-19] MEDS: LEVOFLOXACIN 750 MG TAB PO SCH (16:42)
--- NOTE | 2016-10-19 18:02 | HHI.PR ---
Subjective Remarks 56 YOWF with VDRF, , extubated 10/10 no Fever Alert, awake , follows commands Weaned to RA Tolerates PO Feels weak Objective Vital Signs Vital Signs Date Time Temp Pulse Resp B/P (MAP) Pulse Ox O2 Delivery O2 Flow Rate FiO2 10/19/16 16:00 98.4 89 18 116/65 (82) 94 10/19/16 16:00 Room Air 10/19/16 12:00 Room Air 10/19/16 12:00 98.7 101 18 136/65 (88) 93 10/19/16 08:20 Room Air 10/19/16 08:00 97.3 92 19 118/58 (78) 94 10/19/16 07:55 93 21 10/19/16 07:51 96 10/19/16 04:00 Room Air 10/19/16 04:00 97.4 84 19 139/73 (95) 93 10/19/16 00:00 97.8 87 16 98/54 (69) 93 10/19/16 00:00 Room Air 10/18/16 22:00 Room Air 10/18/16 21:32 97 Nasal Cannula 2.00 10/18/16 20:00 Nasal Cannula 1.00 10/18/16 20:00 97.9 75 22 117/58 (77) 95 10/18/16 20:00 80 I/O 10/18/16 10/18/16 10/18/16 10/19/16 10/19/16 10/19/16 07:00 15:00 23:00 07:00 15:00 23:00 Intake Total 420 ml 360 ml 482 ml Output Total 200 ml 400 ml 200 ml Balance 220 ml -40 ml 282 ml Intake Oral 420 ml 360 ml 480 ml IV Total 2 ml Output Urine Total 400 ml Stool Total 200 ml 200 ml # Voids 2 5 # Bowel Movements 1 Result Diagram: 10/19/1690410/19/16904 Objective Remarks GENERAL: MBMN WF, on Vent SKIN: Warm and dry. HEAD: Normocephalic. EYES: No scleral icterus. No injection or drainage. NECK: Supple, trachea midline. No JVD or lymphadenopathy. CARDIOVASCULAR: Regular rate and rhythm without murmurs, gallops, or rubs. RESPIRATORY: Breath sounds equal bilaterally. No accessory muscle use. GASTROINTESTINAL: Abdomen soft, non-tender, nondistended. Ileostomy MUSCULOSKELETAL: No cyanosis, or edema. BACK: Nontender without obvious deformity. No CVA tenderness. A/P Assessment and Plan VDRF, s/p extubation 10/10 COPD Exac HTN Nicotine use S/p Exp Lap, ileostomy PLAN Abx per ID Nathaniel qid Encourage PO PT Abdirahman Remy MD Oct 19, 2016 18:02
[2016-10-19] MEDS: MORPHINE SULFATE 4 MG/ML INJ IV PUSH PRN (21:06)
--- NOTE | 2016-10-19 23:21 | HHI.PR ---
Subjective Remarks C/R Surg POD afebrile, VSS UO good coughing stoma funct NOT OOB Objective - Vital Signs Date Time Temp Pulse Resp B/P (MAP) Pulse Ox O2 Delivery O2 Flow Rate FiO2 10/19/16 20:00 98.2 93 20 113/56 (75) 97 10/19/16 16:00 Room Air 10/19/16 07:55 21 10/18/16 21:32 2.00 Result Diagram: 10/19/1690410/19/16904 Objective Remarks PE Abd - lg, soft, mild tympany, no mass stoma pink, wound dry A/P Assessment and Plan Imp: recent pneumoperitoneum start PO,adv PT OOB DC plans Victor Manuel Yo MD Oct 19, 2016 23:21
[2016-10-20] VITALS (9 sets, daily range): BP systolic 109–128; BP diastolic 60–78; PULSE 77–96; RESP 18; TEMP 97.7–98.3; O2SAT 92–96
[2016-10-20] MEDS: DILTIAZEM HCL 60 MG TAB PO SCH ×4 (01:19→20:32)
[2016-10-20] MEDS: MORPHINE SULFATE 4 MG/ML INJ IV PUSH PRN ×4 (01:20→20:30)
[2016-10-20] MEDS: LORazepam 2 MG/ML VIAL IV PUSH PRN ×3 (03:18→20:31)
[2016-10-20] MEDS: hydrALAZINE HCL 50 MG TAB PO SCH ×3 (06:17→22:33)
[2016-10-20] MEDS: CHLORHEXIDINE 0.12% (ORAL KIT) 15 ML CUP MT SCH ×2 (08:00→20:00)
[2016-10-20] MEDS: BENEPROTEIN POWDER 1 PACK G-TUBE SCH ×3 (08:25→17:06)
[2016-10-20] MEDS: PANTOPRAZOLE SOD 20 MG DELAYED RELEASE TAB PO SCH (08:25)
[2016-10-20] MEDS: SODIUM CHLORIDE 0.9% FLUSH 10 ML FLUSH IV FLUSH SCH ×2 (08:26→20:33)
[2016-10-20] MEDS: TIOTROPIUM BROMIDE 18 MCG INH INH SCH (08:29)
[2016-10-20] MEDS: RESP: BUDESONIDE 0.5 MG/2 ML NEB NEB SCH ×2 (08:34→19:17)
[2016-10-20] MEDS: RESP: ALBUTEROL 2.5 MG/IPRATROPIUM 0.5 MG NEB (SCH) NEB ×3 (08:34→19:17)
[2016-10-20] MEDS ORDERED: methylPREDNISolone SOD SUCC 40 MG/1 ML VIAL IV SCH ×2 (09:00)
[2016-10-20] MEDS: POTASSIUM CHLORIDE 20 MEQ CONTROLLED RELEASE TAB PO SCH ×2 (10:10→20:33)
--- NOTE | 2016-10-20 13:40 | PD.WCN.NOT ---
Wound Consult Description: Consult placed per Dr Yo for "stoma" Communicated with: ASHLEY Mora Patient Additional Information: Patient seen on [address] [place] [address] for Ostomy teaching and change of appliance. Ostomy Type: Ileostomy Surgeon: Victor Manuel Yo MD Date of Surgery: Oct 13, 2016 Complete: Education materials, Other (Ostomy appliance changed. Size 2 1/4" appliance used.) Educated patient on: How to properly remove appliance/barrier from skin. How to inspect barrier after removal for assessment of leakage. How to open and close pouch. Using water and soft cloths or wash cloths to cleanse peristomal skin and assess for breakdown. How to measure stoma. What size appliance to use. Foods that can cause blockages. Drinking plenty of fluids with an ileostomy to prevent dehydration. Additional information Patient was seen in her room lying on her left side sleeping upon arrival to [address] [place] [address] @ 1230 today. Patient was easily aroused and found to be lying on soiled underpads. Assistance obtained to reposition patient for removal of underpads and gown change prior to stoma assessment. Pouch was removed from mid right abdomen. Stoma was visualized as red, round, moist, long protrusion, lumen noted @9 o'clock, functioning with odorless liquid yellow and green soft effluent. Stoma measures 1 1/4". Barrier was removed using adhesive removal wipes. Mucocutaneous junction is noted with sutures intact and unremarkable peristomal skin. Appliance available in room was 2 1/4" and fit stoma size leaving 1/8" open around mucocutaneous junction to avoid appliance rubbing on suture line. Patient states that she is on a soft diet and tolerating ok. Patient gave verbal consent for [facility] to send starter kit to her home prior to discharge. Total of 45 min spent with patient for teaching and changing of appliance. Nell Nur [facility] Oct 20, 2016 13:40
--- NOTE | 2016-10-20 14:57 | HHI.PR ---
Subjective Remarks Patient's Global weakness is not improving. Some weakness would've been expected after extubation but she should be making more progress and she has recently. She complains of bilateral leg numbness. Upper and lower extremity weakness is present but she feels there is more weakness in her arms. She also feels weak in the trunk and his inability to sit up. From her neck up she feels within normal limits does not report any weakness with swallowing or chewing. Objective Vital Signs Date Time Temp Pulse Resp B/P (MAP) Pulse Ox O2 Delivery O2 Flow Rate FiO2 10/20/16 12:00 Room Air 10/20/16 12:00 98.0 80 18 110/78 (89) 93 10/20/16 08:40 94 10/20/16 08:15 Room Air 10/20/16 08:00 97.7 83 18 109/69 (82) 92 10/20/16 07:51 85 10/20/16 04:00 98.0 77 18 128/61 (83) 96 10/20/16 00:00 98.3 89 18 127/66 (86) 96 10/19/16 20:00 Room Air 10/19/16 20:00 98.2 93 20 113/56 (75) 97 10/19/16 19:55 94 10/19/16 16:00 98.4 89 18 116/65 (82) 94 10/19/16 16:00 Room Air I/O 10/19/16 10/19/16 10/19/16 10/20/16 10/20/16 10/20/16 07:00 15:00 23:00 07:00 15:00 23:00 Intake Total 482 ml 102 ml 480 ml 100 ml Output Total 200 ml 500 ml 250 ml Balance 282 ml 102 ml -20 ml -150 ml Intake Oral 480 ml 480 ml 100 ml IV Total 2 ml 102 ml Output Urine Total 400 ml 250 ml Stool Total 200 ml 100 ml # Voids 5 3 Result Diagram: 10/19/1690410/19/16904 Objective Remarks GENERAL: NAD, A&Ox3 HEAD: Normocephalic. NG tube is in place. NECK: Supple, trachea midline. No lymphadenopathy. EYES: No scleral icterus. No injection or drainage. CARDIOVASCULAR: Regular rate and rhythm without murmurs, gallops, or rubs. RESPIRATORY: Breath sounds equal bilaterally. No accessory muscle use. GASTROINTESTINAL: Abdomen soft, non-tender, nondistended. MUSCULOSKELETAL: No cyanosis, or edema. SKIN: Warm and dry. NEURO: No focal neurological deficitis. A/P Problem List: (1) Respiratory distress determined by examination ICD Code: R06.00 - Dyspnea, unspecified Status: Acute (2) COPD with exacerbation ICD Code: J44.1 - Chronic obstructive pulmonary disease with (acute) exacerbation Status: Acute (3) Acute respiratory failure with hypoxia ICD Code: J96.01 - Acute respiratory failure with hypoxia Status: Acute (4) Asthma exacerbation ICD Code: J45.901 - Unspecified asthma with (acute) exacerbation Status: Acute (5) Multiple sclerosis ICD Code: G35 - Multiple sclerosis Status: Acute (6) Multiple myeloma ICD Code: C90.00 - Multiple myeloma not having achieved remission Status: Acute (7) Acute kidney injury ICD Code: N17.9 - Acute kidney failure, unspecified Status: Resolved (8) Acute and chronic respiratory failure ICD Code: J96.20 - Acute and chronic respiratory failure, unspecified whether with hypoxia or hypercapnia Status: Chronic (9) WORKFORCE PL[employer]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 ICD Code: G37.9 - Demyelinating disease of central nervous system, unspecified Status: Acute (10) Tobacco abuse ICD Code: Z72.0 - Tobacco use Status: Chronic (11) Otitis media ICD Code: H66.90 - Otitis media, unspecified, unspecified ear Status: Acute (12) Hyperglycemia ICD Code: R73.9 - Hyperglycemia, unspecified Status: Resolved (13) Acidosis ICD Code: E87.2 - Acidosis Status: Resolved (14) Alcohol abuse ICD Code: F10.10 - Alcohol abuse, uncomplicated Status: Chronic (15) Hyperphosphatemia ICD Code: E83.39 - Other disorders of phosphorus metabolism Status: Resolved (16) Hypermagnesemia ICD Code: E83.41 - Hypermagnesemia Status: Acute (17) Acute hypernatremia ICD Code: E87.0 - Hyperosmolality and hypernatremia Status: Acute (18) Asystole ICD Code: I46.9 - Cardiac arrest, cause unspecified Status: Resolved (19) Cardiac arrest ICD Code: I46.9 - Cardiac arrest, cause unspecified Status: Resolved (20) Acute respiratory failure ICD Code: J96.00 - Acute respiratory failure, unspecified whether with hypoxia or hypercapnia Status: Acute Assessment and Plan Assessment and Plan 56-year-old female admitted secondary to respiratory distress and COPD and pneumonia. GI complications, now status post ileostomy. Continue physical therapy. Neurology consult for weakness below the neck. Paraplegia of unknown etiology At this point I feel this status is no longer excusable weakness status post extubation Consult neurology Continue PT Continue to follow for improvement Acute hypercarbic respiratory failure COPD exacerbation HCAP, LLL infiltrate Bronchospasms extubated 10/14. Respiratory status is improved and stable Continue oxygen as needed Breathing treatments as needed Continue Spiriva Pulmonology following Continue Zosyn Colonic ileus Status post ileostomy placed 10/13/16 Chronic hemorrhoids Speech therapy evaluation to determine if NG tube can be removed. NG tube has been removed Follow for any worsening of GI status Regular diet for now Continue Flagyl, Zosyn, and Diflucan Changed to by mouth Protonix. Leukocytosis May be secondary to steroids Improving Continue to follow CBC History of tobacco abuse Currently weaned off all nicotine Hypertension. Follow blood pressures Currently stable Continue Cardizem Continue hydralazine Hyperglycemia Stabilized Stop Following blood sugars as closely Global deconditioning Approximately 22 days in ICU much of which was on a ventilator Start physical therapy Start Occupational therapy DVT prophylaxis SCDs Andrea Meza MD Oct 20, 2016 14:57
[2016-10-20] MEDS: LEVOFLOXACIN 750 MG TAB PO SCH (15:44)
--- NOTE | 2016-10-20 15:51 | PD.CONS ---
History of Present Illness Service Neurology Consult Requested By medical Reason for Consult weakness Primary Care Physician No Primary Care Physician History of Present Illness 56-year-old female, with known COPD, presented to the hospital complaining of severe and worsening shortness of breath, cough requiring intubation and was in the ICU for 2-3 weeks. She was on steroids She started having problem with significant ileus, and patient has had 2 decompressive colonoscopies done. She is now in the medical rai, extubated. she states she is weak and is having numbness in her ankles, paresthesias which is new since arrival. was walking before she came in. no ptosis, no diplopia. no difficulty swallowing. no ruiz or spinal pain. no bladder incontinence. no hx of gbs/neuropathy. Review of Systems ROS Limitations: as above Past Family Social History Allergies: Coded Allergies: No Known Allergies (Unverified , 09/24/16) Past Medical History COPD Hypertension Past Surgical History Tubal ligation Family History Noncontributory Social History Ex-smoker No alcohol abuse/illicit drugs Review of Systems All other ROS: ROS reviewed as documented in chart Past Family Social History Allergies: Coded Allergies: No Known Allergies (Unverified , 09/24/16) Active Ordered Medications Current Medications Medications (Trade) Dose Ordered Sig/Amadou Route Start Time Stop Time Status Last Admin (NS Flush) 2 ml UNSCH PRN IV FLUSH 09/25/16 06:15 10/13/16 07:53 (NS Flush) 2 ml BID IV FLUSH 09/25/16 09:00 10/20/16 08:26 (Narcan Inj) 0.4 mg UNSCH PRN IV 09/25/16 06:15 (Duoneb Neb) 1 ampule Q2HR NEB PRN NEB 09/25/16 06:15 10/18/16 06:38 (Lopressor) 50 mg BID PO 09/25/16 09:00 Future Hold 09/25/16 19:41 (Prinivil) 10 mg DAILY PO 09/25/16 09:00 Future Hold 09/25/16 08:32 (Hydrodiuril) 12.5 mg DAILY PO 09/25/16 09:00 Future Hold 09/25/16 08:32 (Pulmicort Respule Neb) 0.5 mg Q12HR NEB NEB 09/25/16 12:45 10/20/16 08:34 (Lovenox Inj) 40 mg Q24H SQ 09/25/16 13:00 Future Hold 10/06/16 14:18 (Spiriva Inh) 18 mcg DAILY INH 09/25/16 12:45 10/20/16 08:29 (Haldol Inj) 5 mg Q6H PRN IV PUSH 09/26/16 10:15 10/10/16 22:46 (Ativan Inj) 1 mg Q4H PRN IV PUSH 09/26/16 15:00 10/20/16 11:40 (Cardizem) 60 mg Q6H PO 09/29/16 14:00 10/20/16 13:38 (Reglan Inj) 10 mg Q8HR IV PUSH 10/01/16 09:00 Future Hold 10/13/16 06:23 (Peridex 0.12% Liq) 15 ml BID@08,20 MT 10/03/16 20:00 10/16/16 20:00 (Apresoline Inj) 10 mg Q1HR PRN IV PUSH 10/04/16 16:00 10/13/16 07:52 (Trandate Inj) 10 mg Q1HR PRN IV PUSH 10/04/16 16:00 (Vasotec Inj) 1.25 mg Q6H PRN IV PUSH 10/04/16 16:00 (Apresoline) 50 mg Q8HR PO 10/13/16 14:00 10/20/16 13:38 (Morphine Inj) 1 mg Q4H PRN IV PUSH 10/13/16 11:15 10/20/16 06:47 (Zofran Inj) 4 mg Q6H PRN IV PUSH 10/13/16 11:15 10/17/16 01:10 (Beneprotein Powder) 1 pack TID G-TUBE 10/14/16 13:00 10/18/16 09:00 (Duoneb Neb) 1 ampule TID NEB NEB 10/17/16 14:00 10/20/16 13:40 (Protonix) 20 mg DAILY PO 10/18/16 09:00 10/20/16 08:25 (Levaquin) 750 mg DAILY@17 PO 10/17/16 17:00 10/24/16 16:59 10/19/16 16:42 (SoluMEDROL INJ) 10 mg DAILY IV 10/20/16 09:00 10/20/16 08:28 (KCl) 20 meq Q12HR PO 10/20/16 09:00 10/20/16 10:10 Exam I&O / VS Vital Signs Date Time Temp Pulse Resp B/P (MAP) Pulse Ox O2 Delivery O2 Flow Rate FiO2 10/20/16 12:00 Room Air 10/20/16 12:00 98.0 80 18 110/78 (89) 93 10/20/16 08:40 94 10/20/16 08:15 Room Air 10/20/16 08:00 97.7 83 18 109/69 (82) 92 10/20/16 07:51 85 10/20/16 04:00 98.0 77 18 128/61 (83) 96 10/20/16 00:00 98.3 89 18 127/66 (86) 96 10/19/16 20:00 Room Air 10/19/16 20:00 98.2 93 20 113/56 (75) 97 10/19/16 19:55 94 10/19/16 16:00 98.4 89 18 116/65 (82) 94 10/19/16 16:00 Room Air General: Alert and Oriented, No acute distress Neurologic: Alert, Oriented Psychiatric: Cooperative, Appropriate mood & affect, Normal judgement Exam Comments ox 3, dysphonic speech, eomi, no ptosis, ou 3-2mm, tongue midline, face sym, crude ue movements mild finger flexion, mild ankle planter flexion; msr 1-2+ upper and lower, no clonus, planterflexor, reduced pin in stocking distribution Review/Management Diagnosis/Plan: (1) Critical illness polyneuropathy ICD Codes: G62.81 - Critical illness polyneuropathy Status: Acute Plan: probable CCN related to bedridden status + steroids + infection additional possibilities: gbs, cord lesion recs emg limbs by rehab MD mri brain/cspine if feasible gabapentin for paresthesias b12 nutritional support p.t./o.t. (2) Critical illness myopathy ICD Codes: G72.81 - Critical illness myopathy Status: Acute Franki Garcias MD Oct 20, 2016 15:51
[2016-10-20] MEDS: GABAPENTIN 100 MG CAP PO SCH (18:50)
--- NOTE | 2016-10-20 18:51 | HHI.PR ---
Subjective Remarks C/R Surg POD afebrile, VSS UO good stoma funct Slow progr with PT, needs rehab for more vigorous exercise Objective - Vital Signs Date Time Temp Pulse Resp B/P (MAP) Pulse Ox O2 Delivery O2 Flow Rate FiO2 10/20/16 17:01 95 10/20/16 16:00 98.0 89 18 117/60 (79) 10/20/16 16:00 Room Air 10/19/16 07:55 21 10/18/16 21:32 2.00 Result Diagram: 10/19/1690410/19/16904 Objective Remarks PE Abd - lg, soft, mild tympany, stoma pink, wound dry A/P Assessment and Plan Imp: recent pneumoperitoneum radha diet PT incr OOB DC plans for rehab Victor Manuel Yo MD Oct 20, 2016 18:51
--- NOTE | 2016-10-20 19:37 | HHI.PR ---
Subjective Remarks 56 YOWF with VDRF, , extubated 10/10 no Fever Alert, awake , follows commands Weaned to RA Tolerates PO Feels weak BF at BS Objective Vital Signs Vital Signs Date Time Temp Pulse Resp B/P (MAP) Pulse Ox O2 Delivery O2 Flow Rate FiO2 10/20/16 17:01 95 10/20/16 16:00 98.0 89 18 117/60 (79) 94 10/20/16 16:00 Room Air 10/20/16 12:00 Room Air 10/20/16 12:00 98.0 80 18 110/78 (89) 93 10/20/16 08:40 94 10/20/16 08:15 Room Air 10/20/16 08:00 97.7 83 18 109/69 (82) 92 10/20/16 07:51 85 10/20/16 04:00 98.0 77 18 128/61 (83) 96 10/20/16 00:00 98.3 89 18 127/66 (86) 96 10/19/16 20:00 Room Air 10/19/16 20:00 98.2 93 20 113/56 (75) 97 10/19/16 19:55 94 I/O 10/19/16 10/19/16 10/19/16 10/20/16 10/20/16 10/20/16 07:00 15:00 23:00 07:00 15:00 23:00 Intake Total 482 ml 102 ml 480 ml 100 ml 364 ml Output Total 200 ml 500 ml 250 ml 400 ml Balance 282 ml 102 ml -20 ml -150 ml -36 ml Intake Oral 480 ml 480 ml 100 ml 360 ml IV Total 2 ml 102 ml 4 ml Output Urine Total 400 ml 250 ml 400 ml Stool Total 200 ml 100 ml # Voids 5 3 Result Diagram: 10/19/1690410/19/16904 Objective Remarks GENERAL: MBMN WF, on Vent SKIN: Warm and dry. HEAD: Normocephalic. EYES: No scleral icterus. No injection or drainage. NECK: Supple, trachea midline. No JVD or lymphadenopathy. CARDIOVASCULAR: Regular rate and rhythm without murmurs, gallops, or rubs. RESPIRATORY: Breath sounds equal bilaterally. No accessory muscle use. GASTROINTESTINAL: Abdomen soft, non-tender, nondistended. Ileostomy MUSCULOSKELETAL: No cyanosis, or edema. BACK: Nontender without obvious deformity. No CVA tenderness. A/P Assessment and Plan VDRF, s/p extubation 10/10 COPD Exac HTN Nicotine use S/p Exp Lap, ileostomy PLAN Abx per ID Nathaniel qid Encourage PO PT Abdirahman Marquez MD Oct 20, 2016 19:37
[2016-10-21] VITALS (9 sets, daily range): BP systolic 98–127; BP diastolic 54–65; PULSE 83–110; RESP 16–20; TEMP 97.5–98.7; O2SAT 92–96
[2016-10-21] MEDS: MORPHINE SULFATE 4 MG/ML INJ IV PUSH PRN ×3 (00:27→20:39)
[2016-10-21] MEDS: LORazepam 2 MG/ML VIAL IV PUSH PRN ×5 (00:30→23:16)
[2016-10-21] MEDS: DILTIAZEM HCL 60 MG TAB PO SCH ×4 (02:35→20:00)
[2016-10-21] MEDS: hydrALAZINE HCL 50 MG TAB PO SCH ×3 (06:00→22:00)
[2016-10-21 06:49] LABS: POTASSIUM 3.4 MEQ/L (3.5-5.1)
[2016-10-21] MEDS: RESP: BUDESONIDE 0.5 MG/2 ML NEB NEB SCH ×2 (07:38→19:33)
[2016-10-21] MEDS: RESP: ALBUTEROL 2.5 MG/IPRATROPIUM 0.5 MG NEB (SCH) NEB ×2 (07:38→13:48)
[2016-10-21] MEDS: CHLORHEXIDINE 0.12% (ORAL KIT) 15 ML CUP MT SCH ×2 (08:00→20:00)
[2016-10-21] MEDS: SODIUM CHLORIDE 0.9% FLUSH 10 ML FLUSH IV FLUSH SCH ×2 (09:00→20:39)
--- NOTE | 2016-10-21 09:36 | RADRPT ---
EXAM DATE/TIME: 10/21/2016 08:43 [facility] COMPARISON: MRI BRAIN W/O CONTRAST, September 22, 2015, 11:07. INDICATIONS : CVA. MEDICAL HISTORY : Hypertension. Chronic obstructive pulmonary disease. SURGICAL HISTORY : Tubal ligation. Ileostomy. ENCOUNTER: Subsequent ACUITY: 2 day PAIN SCORE: 0/10 LOCATION: head. TECHNIQUE: Multiplanar, multisequence MRI of the brain was performed without contrast. FINDINGS: CEREBRUM: The ventricles are normal for age. No evidence of midline shift, mass lesion, hemorrhage or acute in farction. No extraaxial fluid collections are seen. The pituitary gland and suprasellar cistern are normal in configuration. WHITE MATTER: Scattered subcortical white matter lesions throughout both cerebral hemispheres. No involvement of th e subcortical U fibers. No involvement of the brock or corpus callosum. These are stable from the prio r exam. POSTERIOR FOSSA: The cerebellum and brainstem are intact. The 4th ventricle is midline. The cerebellopontine angle is unremarkable. The cerebellar tonsils are normal in position. DIFFUSION IMAGING: No focal areas of restricted diffusion are seen. No evidence of acute infarction. EXTRACRANIAL: The visualized portions of the orbits and paranasal sinuses are unremarkable. CONCLUSION: 1. Unchanged nonspecific white matter lesions as detailed above. Differential diagnostic consideratio ns remains quite broad. The 2 most likely etiologies would be a demyelinating process such as multipl e sclerosus versus chronic small vessel ischemic change. Jamie Tobin Jr., MD on October 21, 2016 at 9:29 Board Certified Radiologist. This report was verified electronically.
--- NOTE | 2016-10-21 09:52 | RADRPT ---
EXAM DATE/TIME: 10/21/2016 08:43 [facility] COMPARISON: No previous studies available for comparison. INDICATIONS : Myelopathy. MEDICAL HISTORY : Hypertension. Chronic obstructive pulmonary disease. SURGICAL HISTORY : Tubal ligation. Ileostomy. ENCOUNTER: Subsequent ACUITY: 2 day PAIN SCORE: 0/10 LOCATION: cervical spine. TECHNIQUE: Multiplanar, multisequence MRI examination of the cervical spine was performed. FINDINGS: Motion degraded exam particularly on the axial T2 sequence. VERTEBRAE: Normal vertebral body height. Homogeneous marrow signal. ALIGNMENT: No evidence of subluxation. CORD: Normal configuration and signal. POST FOSSA: The cerebellar tonsils are normal in position. C2-C3: The thecal sac has a normal configuration. There is no evidence of disc herniation or spinal canal s tenosis. The neural foramina are patent bilaterally. C3-C4: There is disc desiccation with preservation of the disc space height. A mild broad-based bulge. No ce ntral canal stenosis. Neural foramina are grossly patent. C4-C5: There is disc desiccation with preservation of the disc space height. A mild broad-based bulge. No ce ntral canal stenosis. Neural foramina are grossly patent. C5-C6: There is disc desiccation with preservation of the disc space height. A mild broad-based bulge. No ce ntral canal stenosis. Neural foramina are grossly patent. C6-C7: The thecal sac has a normal configuration. There is no evidence of disc herniation or spinal canal s tenosis. The neural foramina are patent bilaterally. C7-T1: The thecal sac has a normal configuration. There is no evidence of disc herniation or spinal canal s tenosis. The neural foramina are patent bilaterally. CONCLUSION: 1. Motion degraded exam. 2. No acute abnormality. 3. Mild degenerative disc disease without neural impingement. Jamie Tobin Jr., MD on October 21, 2016 at 9:45 Board Certified Radiologist. This report was verified electronically.
--- NOTE | 2016-10-21 10:02 | HHI.PR ---
Subjective Remarks C/R Surg POD afebrile, VSS PO radha UO good stoma funct Slow progr with PT, needs rehab for more vigorous exercise Objective - Vital Signs Date Time Temp Pulse Resp B/P (MAP) Pulse Ox O2 Delivery O2 Flow Rate FiO2 10/21/16 08:00 98.0 88 20 111/62 (78) 95 10/21/16 07:40 Nasal Cannula 1.00 10/19/16 07:55 21 Result Diagram: 10/19/16 0905 10/21/16 0451 Objective Remarks PE Abd - lg, soft, mild tympany, stoma pink, wound dry A/P Assessment and Plan Imp: recent pneumoperitoneum radha diet PT incr OOB DC plans for rehab Victor Manuel Yo MD Oct 21, 2016 10:02
--- NOTE | 2016-10-21 11:37 | HHI.PR ---
Subjective Remarks Further workup for global weakness. Pending MRI of brain, MRI of C-spine, bleeding EMG, and neurological monitoring. Objective Vital Signs Date Time Temp Pulse Resp B/P (MAP) Pulse Ox O2 Delivery O2 Flow Rate FiO2 10/21/16 08:00 98.0 88 20 111/62 (78) 95 10/21/16 07:40 92 Nasal Cannula 1.00 10/21/16 04:00 97.7 83 18 101/63 (76) 95 10/21/16 04:00 Room Air 10/21/16 00:00 Room Air 10/21/16 00:00 97.5 86 18 106/57 (73) 95 10/20/16 20:00 97.7 95 18 121/69 (86) 95 10/20/16 20:00 Room Air 10/20/16 20:00 96 10/20/16 17:01 95 10/20/16 16:00 98.0 89 18 117/60 (79) 94 10/20/16 16:00 Room Air 10/20/16 12:00 Room Air 10/20/16 12:00 98.0 80 18 110/78 (89) 93 I/O 10/20/16 10/20/16 10/20/16 10/21/16 10/21/16 10/21/16 06:59 14:59 22:59 06:59 14:59 22:59 Intake Total 100 ml 364 ml 120 ml Output Total 250 ml 400 ml 450 ml Balance -150 ml -36 ml -450 ml 120 ml Intake Oral 100 ml 360 ml 120 ml IV Total 4 ml Output Urine Total 250 ml 400 ml 450 ml Result Diagram: 10/19/16 0905 10/21/16 0451 Objective Remarks GENERAL: NAD, A&Ox3 HEAD: Normocephalic. NG tube is in place. NECK: Supple, trachea midline. No lymphadenopathy. EYES: No scleral icterus. No injection or drainage. CARDIOVASCULAR: Regular rate and rhythm without murmurs, gallops, or rubs. RESPIRATORY: Breath sounds equal bilaterally. No accessory muscle use. GASTROINTESTINAL: Abdomen soft, non-tender, nondistended. MUSCULOSKELETAL: No cyanosis, or edema. SKIN: Warm and dry. NEURO: No focal neurological deficitis. A/P Problem List: (1) Respiratory distress determined by examination ICD Code: R06.00 - Dyspnea, unspecified Status: Acute (2) COPD with exacerbation ICD Code: J44.1 - Chronic obstructive pulmonary disease with (acute) exacerbation Status: Acute (3) Acute respiratory failure with hypoxia ICD Code: J96.01 - Acute respiratory failure with hypoxia Status: Acute (4) Asthma exacerbation ICD Code: J45.901 - Unspecified asthma with (acute) exacerbation Status: Acute (5) Multiple sclerosis ICD Code: G35 - Multiple sclerosis Status: Acute (6) Multiple myeloma ICD Code: C90.00 - Multiple myeloma not having achieved remission Status: Acute (7) Acute kidney injury ICD Code: N17.9 - Acute kidney failure, unspecified Status: Resolved (8) Acute and chronic respiratory failure ICD Code: J96.20 - Acute and chronic respiratory failure, unspecified whether with hypoxia or hypercapnia Status: Chronic (9) HEALTH SANITARIAN demyelination ICD Code: G37.9 - Demyelinating disease of central nervous system, unspecified Status: Acute (10) Tobacco abuse ICD Code: Z72.0 - Tobacco use Status: Chronic (11) Otitis media ICD Code: H66.90 - Otitis media, unspecified, unspecified ear Status: Acute (12) Hyperglycemia ICD Code: R73.9 - Hyperglycemia, unspecified Status: Resolved (13) Acidosis ICD Code: E87.2 - Acidosis Status: Resolved (14) Alcohol abuse ICD Code: F10.10 - Alcohol abuse, uncomplicated Status: Chronic (15) Hyperphosphatemia ICD Code: E83.39 - Other disorders of phosphorus metabolism Status: Resolved (16) Hypermagnesemia ICD Code: E83.41 - Hypermagnesemia Status: Acute (17) Acute hypernatremia ICD Code: E87.0 - Hyperosmolality and hypernatremia Status: Acute (18) Asystole ICD Code: I46.9 - Cardiac arrest, cause unspecified Status: Resolved (19) Cardiac arrest ICD Code: I46.9 - Cardiac arrest, cause unspecified Status: Resolved (20) Acute respiratory failure ICD Code: J96.00 - Acute respiratory failure, unspecified whether with hypoxia or hypercapnia Status: Acute Assessment and Plan Assessment and Plan 56-year-old female admitted secondary to respiratory distress and COPD and pneumonia. GI complications, now status post ileostomy. Continue physical therapy. Neurology following. Neurologic workup in process. Hypokalemia present this morning. Replacement provided. Follow labs. Labs ordered. Paraplegia of unknown etiology At this point I feel this status is no longer excusable weakness status post extubation Neurology following Continue PT Continue to follow for improvement MRI of brain ordered MRI C-spine ordered Plan for limb EMG Acute hypercarbic respiratory failure COPD exacerbation HCAP, LLL infiltrate Bronchospasms extubated 10/14. Respiratory status is improved and stable Continue oxygen as needed Breathing treatments as needed Continue Spiriva Pulmonology following Continue Zosyn Colonic ileus Status post ileostomy placed 10/13/16 Chronic hemorrhoids Speech therapy evaluation to determine if NG tube can be removed. NG tube has been removed Follow for any worsening of GI status Regular diet for now Continue Flagyl, Zosyn, and Diflucan Changed to by mouth Protonix. Leukocytosis May be secondary to steroids Improving Continue to follow CBC History of tobacco abuse Currently weaned off all nicotine Hypertension. Follow blood pressures Currently stable Continue Cardizem Continue hydralazine Hyperglycemia Stabilized Stop Following blood sugars as closely Global deconditioning Approximately 22 days in ICU much of which was on a ventilator Start physical therapy Start Occupational therapy DVT prophylaxis SCDs Andrea Meza MD Oct 21, 2016 11:37
--- NOTE | 2016-10-21 15:24 | PD.WCN.NOT ---
Wound Consult Description: Consult placed per Dr Yo for "stoma Communicated with: ASHLEY Barton CNA Recommendation: Please empty ileostomy pouch of effluent when 1/2-1/3 full Continue to educate patient on ileostomy Additional Information: Patient seen on [address] [place] [address] today for Ostomy teaching and assessment of new appliance that was changed 10/20/16 Ostomy Type: Ileostomy Surgeon: Victor Manuel Yo MD Date of Surgery: Oct 13, 2016 Complete: Education materials, Other (patient instructed to call RN when pouch begins to feel heavy ) Educated patient on: Patient stated that she could tell the bag was getting heavy and filling up. Instructed patient to call RN and notify them of this so it can be emptied before the appliance comes off. Additional information Patient seen on [address] [place] [address] for follow up of Ostomy appliance and stoma assessment. Upon entering room patient states that the bag was getting heavy and feeling full. Patients gown was lifted to visualized appliance, that was placed yesterday, to reveal a pouch of 3/4 full of dark green/brown liquid effluent and 1/4 filled with air. Appliance was beginning to lift off of the patient at the midline abdominal area. A graduate in patients bathroom was found with 225ml of urine, it was emptied, and later notified both GENERAL UTILITY WORKER and RN, and was used to empty ostomy pouch of 325ml liquid effluent. When asked if patient had called anyone to come empty the pouch she said no. Patient was strongly encouraged to call RN before the pouch gets full since she is physically unable to empty the pouch herself, otherwise the entire appliance will come off and saturate her, her bed, and her linens. Patient states that she is tired from working with Physical Therapy today. Patient had company with boyfriend at bedside. Verbal consent obtained for [facility] to send starter kit to patient home where family will be able to receive it, even though patient may be discharged to rehab. Patient states being very weak and unable to assist in the emptying of the pouch, however patient is participating in the discussion/ demonstration with verbal understanding. If patient is not discharged before Wednesday, patient will be followed up on by magazine writer. Nell Nur [facility]ITAL[facility] Oct 21, 2016 15:24
[2016-10-21] MEDS: BENEPROTEIN POWDER 1 PACK G-TUBE SCH ×3 (16:25→16:59)
[2016-10-21] MEDS: methylPREDNISolone SOD SUCC 40 MG/1 ML VIAL IV SCH (16:25)
[2016-10-21] MEDS: TIOTROPIUM BROMIDE 18 MCG INH INH SCH (16:25)
[2016-10-21] MEDS: POTASSIUM CHLORIDE 20 MEQ CONTROLLED RELEASE TAB PO SCH ×2 (16:26→20:38)
[2016-10-21] MEDS: GABAPENTIN 100 MG CAP PO SCH ×3 (16:26→16:59)
[2016-10-21] MEDS: PANTOPRAZOLE SOD 20 MG DELAYED RELEASE TAB PO SCH (16:27)
[2016-10-21] MEDS: LEVOFLOXACIN 750 MG TAB PO SCH (16:28)
[2016-10-21] MEDS: RESP: ALBUTEROL 2.5 MG/IPRATROPIUM 0.5 MG NEB (PRN) NEB (19:33)
--- NOTE | 2016-10-21 20:17 | HHI.PR ---
Subjective Remarks 56 YOWF with VDRF, , extubated 10/10 no Fever Alert, awake , follows commands Weaned to RA Tolerates PO Feels weak Had MRI brain done. Objective Vital Signs Vital Signs Date Time Temp Pulse Resp B/P (MAP) Pulse Ox O2 Delivery O2 Flow Rate FiO2 10/21/16 19:48 90 10/21/16 19:35 95 21 10/21/16 17:01 96 Room Air 10/21/16 16:24 18 10/21/16 16:00 98.7 98 19 127/64 (85) 95 10/21/16 12:00 97.7 104 20 115/65 (82) 96 10/21/16 08:00 98.0 88 20 111/62 (78) 95 10/21/16 07:40 92 Nasal Cannula 1.00 10/21/16 04:00 97.7 83 18 101/63 (76) 95 10/21/16 04:00 Room Air 10/21/16 00:00 Room Air 10/21/16 00:00 97.5 86 18 106/57 (73) 95 I/O 10/20/16 10/20/16 10/20/16 10/21/16 10/21/16 10/21/16 06:59 14:59 22:59 06:59 14:59 22:59 Intake Total 100 ml 364 ml 120 ml 960 ml Output Total 250 ml 400 ml 450 ml 600 ml Balance -150 ml -36 ml -450 ml 120 ml 360 ml Intake Oral 100 ml 360 ml 120 ml 960 ml IV Total 4 ml 0 ml Output Urine Total 250 ml 400 ml 450 ml 600 ml Result Diagram: 10/19/16 0905 10/21/16 0451 Objective Remarks GENERAL: MBMN WF, on Vent SKIN: Warm and dry. HEAD: Normocephalic. EYES: No scleral icterus. No injection or drainage. NECK: Supple, trachea midline. No JVD or lymphadenopathy. CARDIOVASCULAR: Regular rate and rhythm without murmurs, gallops, or rubs. RESPIRATORY: Breath sounds equal bilaterally. No accessory muscle use. GASTROINTESTINAL: Abdomen soft, non-tender, nondistended. Ileostomy MUSCULOSKELETAL: No cyanosis, or edema. BACK: Nontender without obvious deformity. No CVA tenderness. A/P Assessment and Plan VDRF, s/p extubation 8/12 COPD Exac HTN Nicotine use S/p Exp Lap, ileostomy PLAN Abx per LESTER Armstrong qid Encourage PO Stable from pulm standpoint. Abdirahman Marquez MD Oct 21, 2016 20:17
[2016-10-22] VITALS (9 sets, daily range): BP systolic 102–134; BP diastolic 55–71; PULSE 81–96; RESP 18; TEMP 97.6–98.7; O2SAT 94–99
[2016-10-22] MEDS: MORPHINE SULFATE 4 MG/ML INJ IV PUSH PRN ×3 (01:38→21:02)
[2016-10-22] MEDS: DILTIAZEM HCL 60 MG TAB PO SCH ×4 (02:02→21:01)
[2016-10-22] MEDS: RESP: ALBUTEROL 2.5 MG/IPRATROPIUM 0.5 MG NEB (PRN) NEB (03:17)
[2016-10-22] MEDS: ONDANSETRON HCL 4 MG/2 ML VIAL IV PUSH PRN (05:09)
[2016-10-22] MEDS: hydrALAZINE HCL 50 MG TAB PO SCH ×3 (05:43→21:02)
[2016-10-22] MEDS: LORazepam 2 MG/ML VIAL IV PUSH PRN ×2 (06:19→22:23)
[2016-10-22] MEDS: RESP: BUDESONIDE 0.5 MG/2 ML NEB NEB SCH ×2 (07:55→20:40)
[2016-10-22] MEDS: CHLORHEXIDINE 0.12% (ORAL KIT) 15 ML CUP MT SCH ×2 (08:00→20:00)
--- NOTE | 2016-10-22 09:04 | HHI.PR ---
Review/Management Diagnosis/Plan: (1) Critical illness polyneuropathy ICD Codes: G62.81 - Critical illness polyneuropathy Status: Acute Plan: probable CCN related to bedridden status + steroids + infection additional possibilities: gbs, cord lesion mri brain images reviewed- pt with hx of childhood fall/trauma- could be concussion related and previous tob use less likely ms. also, iv steroids would have helped ms, if she had it no cord lesion recs emg limbs by rehab MD-pending slowly getting stronger cal le contraction boots gabapentin for paresthesias- controled. pt wants to continue on current dose aggressive therapy rehab planning from neurology limit steroid use repeat mri brain in 2-3 months (2) Critical illness myopathy ICD Codes: G72.81 - Critical illness myopathy Status: Acute Subjective Subjective Comments No acute events reported. feels like she is getting stronger No headache No chest pain No dyspnea no hx of ms or any neuro symptoms prior to this Active Medications Current Medications Medications (Trade) Dose Ordered Sig/Amadou Route Start Time Stop Time Status Last Admin (NS Flush) 2 ml UNSCH PRN IV FLUSH 09/25/16 06:15 10/13/16 07:53 (NS Flush) 2 ml BID IV FLUSH 09/25/16 09:00 10/21/16 20:39 (Narcan Inj) 0.4 mg UNSCH PRN IV 09/25/16 06:15 (Duoneb Neb) 1 ampule Q2HR NEB PRN NEB 09/25/16 06:15 10/22/16 03:17 (Lopressor) 50 mg BID PO 09/25/16 09:00 Future Hold 09/25/16 19:41 (Prinivil) 10 mg DAILY PO 09/25/16 09:00 Future Hold 09/25/16 08:32 (Hydrodiuril) 12.5 mg DAILY PO 09/25/16 09:00 Future Hold 09/25/16 08:32 (Pulmicort Respule Neb) 0.5 mg Q12HR NEB NEB 09/25/16 12:45 10/22/16 07:55 (Lovenox Inj) 40 mg Q24H SQ 09/25/16 13:00 Future Hold 10/06/16 14:18 (Spiriva Inh) 18 mcg DAILY INH 09/25/16 12:45 10/21/16 16:25 (Haldol Inj) 5 mg Q6H PRN IV PUSH 09/26/16 10:15 10/10/16 22:46 (Ativan Inj) 1 mg Q4H PRN IV PUSH 09/26/16 15:00 10/22/16 06:19 (Cardizem) 60 mg Q6H PO 09/29/16 14:00 10/22/16 02:02 (Reglan Inj) 10 mg Q8HR IV PUSH 10/01/16 09:00 Future Hold 10/13/16 06:23 (Peridex 0.12% Liq) 15 ml BID@08,20 MT 10/03/16 20:00 10/16/16 20:00 (Apresoline Inj) 10 mg Q1HR PRN IV PUSH 10/04/16 16:00 10/13/16 07:52 (Trandate Inj) 10 mg Q1HR PRN IV PUSH 10/04/16 16:00 (Vasotec Inj) 1.25 mg Q6H PRN IV PUSH 10/04/16 16:00 (Apresoline) 50 mg Q8HR PO 10/13/16 14:00 10/21/16 16:28 (Morphine Inj) 1 mg Q4H PRN IV PUSH 10/13/16 11:15 10/22/16 01:38 (Zofran Inj) 4 mg Q6H PRN IV PUSH 10/13/16 11:15 10/22/16 05:09 (Beneprotein Powder) 1 pack TID G-TUBE 10/14/16 13:00 10/21/16 16:59 (Protonix) 20 mg DAILY PO 10/18/16 09:00 10/21/16 16:27 (Levaquin) 750 mg DAILY@17 PO 10/17/16 17:00 10/24/16 16:59 10/21/16 16:28 (KCl) 20 meq Q12HR PO 10/20/16 09:00 10/21/16 20:38 (Neurontin) 100 mg TID PO 10/20/16 18:00 10/21/16 16:59 (SoluMEDROL INJ) 5 mg DAILY IV 10/21/16 09:00 10/21/16 16:25 Allergies Allergies Coded Allergies No Known Allergies (Unverified09/24/16) Review of Systems All other ROS: ROS reviewed as documented in chart Exam I&O / VS Vital Signs Date Time Temp Pulse Resp B/P (MAP) Pulse Ox O2 Delivery O2 Flow Rate FiO2 10/22/16 04:00 97.6 86 18 102/55 (71) 98 10/22/16 04:00 Nasal Cannula 2.00 10/22/16 03:20 99 Nasal Cannula 1.00 10/22/16 00:00 Room Air 10/22/16 00:00 98.7 94 18 122/66 (84) 95 10/21/16 20:00 110 10/21/16 20:00 Room Air 10/21/16 20:00 98.4 101 16 98/54 (69) 95 10/21/16 19:48 90 10/21/16 19:35 95 21 10/21/16 17:01 96 Room Air 10/21/16 16:24 18 10/21/16 16:00 98.7 98 19 127/64 (85) 95 10/21/16 12:00 97.7 104 20 115/65 (82) 96 General: Alert and Oriented, No acute distress Neurologic: Alert, Oriented Psychiatric: Cooperative, Appropriate mood & affect, Normal judgement Exam Comments ox 3, dysphonic speech, eomi, no ptosis, ou 3-2mm, tongue midline, face sym, able to raise rt ue to gravity and left to some extent, weak finger flexors/ extensors, able to briefly raise cal le to gravity mild ankle planter flexion; msr 1-2+ upper and lower, no clonus, planterflexor, reduced pin in stocking distribution Objective Micro and Labs Date/Time Source Procedure Growth Status 10/12/16 14:49 Blood Peripheral Aerobic Blood Culture - Final NO GROWTH IN 5 DAYS Complete 10/12/16 14:49 Blood Peripheral Anaerobic Blood Culture - Final NO GROWTH IN 5 DAYS Complete 10/07/16 18:45 Sputum Endotracheal Gram Stain - Final Complete 10/07/16 18:45 Sputum Endotracheal Sputum Culture - Final MODERATE GROWTH NORMAL RESPIRATORY TERRA Complete 10/05/16 21:00 Urine Catheterized Urine Urine Culture - Final NO GROWTH IN 48 HOURS. Complete Franki Garcias MD Oct 22, 2016 09:04
[2016-10-22] MEDS: BENEPROTEIN POWDER 1 PACK G-TUBE SCH ×3 (09:31→17:57)
[2016-10-22] MEDS: methylPREDNISolone SOD SUCC 40 MG/1 ML VIAL IV SCH (09:32)
[2016-10-22] MEDS: TIOTROPIUM BROMIDE 18 MCG INH INH SCH (09:32)
[2016-10-22] MEDS: GABAPENTIN 100 MG CAP PO SCH ×3 (09:34→17:57)
[2016-10-22] MEDS: SODIUM CHLORIDE 0.9% FLUSH 10 ML FLUSH IV FLUSH SCH ×2 (09:34→21:02)
[2016-10-22] MEDS: POTASSIUM CHLORIDE 20 MEQ CONTROLLED RELEASE TAB PO SCH ×2 (09:34→21:01)
[2016-10-22] MEDS: PANTOPRAZOLE SOD 20 MG DELAYED RELEASE TAB PO SCH (09:34)
--- NOTE | 2016-10-22 11:30 | HHI.PR ---
Subjective Remarks Significant change in neurologic status. C-spine MRI shows no abnormalities. Brain MRI shows diffuse ischemic changes versus possible MS. Patient denies any known history of multiple sclerosis. No other new complaints from the patient. Objective Vital Signs Date Time Temp Pulse Resp B/P (MAP) Pulse Ox O2 Delivery O2 Flow Rate FiO2 10/22/16 08:00 98.0 91 18 111/63 (79) 95 10/22/16 04:00 97.6 86 18 102/55 (71) 98 10/22/16 04:00 Nasal Cannula 2.00 10/22/16 03:20 99 Nasal Cannula 1.00 10/22/16 00:00 Room Air 10/22/16 00:00 98.7 94 18 122/66 (84) 95 10/21/16 20:00 110 10/21/16 20:00 Room Air 10/21/16 20:00 98.4 101 16 98/54 (69) 95 10/21/16 19:48 90 10/21/16 19:35 95 21 10/21/16 17:01 96 Room Air 10/21/16 16:24 18 10/21/16 16:00 98.7 98 19 127/64 (85) 95 10/21/16 12:00 97.7 104 20 115/65 (82) 96 I/O 10/21/16 10/21/16 10/21/16 10/22/16 10/22/16 10/22/16 06:59 14:59 22:59 06:59 14:59 22:59 Intake Total 120 ml 960 ml 840 ml Output Total 450 ml 600 ml 2200 ml Balance -450 ml 120 ml 360 ml -1360 ml Intake Oral 120 ml 960 ml 840 ml IV Total 0 ml Output Urine Total 450 ml 600 ml 1400 ml Stool Total 800 ml Result Diagram: 10/19/16 0905 10/21/16 0451 Objective Remarks GENERAL: NAD, A&Ox3 HEAD: Normocephalic. NG tube is in place. NECK: Supple, trachea midline. No lymphadenopathy. EYES: No scleral icterus. No injection or drainage. CARDIOVASCULAR: Regular rate and rhythm without murmurs, gallops, or rubs. RESPIRATORY: Breath sounds equal bilaterally. No accessory muscle use. GASTROINTESTINAL: Abdomen soft, non-tender, nondistended. MUSCULOSKELETAL: No cyanosis, or edema. SKIN: Warm and dry. NEURO: Global weakness, weakness of upper and lower extremities greater in the upper extremities, numbness in lower extremities. A/P Problem List: (1) Respiratory distress determined by examination ICD Code: R06.00 - Dyspnea, unspecified Status: Acute (2) COPD with exacerbation ICD Code: J44.1 - Chronic obstructive pulmonary disease with (acute) exacerbation Status: Acute (3) Acute respiratory failure with hypoxia ICD Code: J96.01 - Acute respiratory failure with hypoxia Status: Acute (4) Asthma exacerbation ICD Code: J45.901 - Unspecified asthma with (acute) exacerbation Status: Acute (5) Multiple sclerosis ICD Code: G35 - Multiple sclerosis Status: Acute (6) Multiple myeloma ICD Code: C90.00 - Multiple myeloma not having achieved remission Status: Acute (7) Acute kidney injury ICD Code: N17.9 - Acute kidney failure, unspecified Status: Resolved (8) Acute and chronic respiratory failure ICD Code: J96.20 - Acute and chronic respiratory failure, unspecified whether with hypoxia or hypercapnia Status: Chronic (9) 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 demyelination ICD Code: G37.9 - Demyelinating disease of central nervous system, unspecified Status: Acute (10) Tobacco abuse ICD Code: Z72.0 - Tobacco use Status: Chronic (11) Otitis media ICD Code: H66.90 - Otitis media, unspecified, unspecified ear Status: Acute (12) Hyperglycemia ICD Code: R73.9 - Hyperglycemia, unspecified Status: Resolved (13) Acidosis ICD Code: E87.2 - Acidosis Status: Resolved (14) Alcohol abuse ICD Code: F10.10 - Alcohol abuse, uncomplicated Status: Chronic (15) Hyperphosphatemia ICD Code: E83.39 - Other disorders of phosphorus metabolism Status: Resolved (16) Hypermagnesemia ICD Code: E83.41 - Hypermagnesemia Status: Acute (17) Acute hypernatremia ICD Code: E87.0 - Hyperosmolality and hypernatremia Status: Acute (18) Asystole ICD Code: I46.9 - Cardiac arrest, cause unspecified Status: Resolved (19) Cardiac arrest ICD Code: I46.9 - Cardiac arrest, cause unspecified Status: Resolved (20) Acute respiratory failure ICD Code: J96.00 - Acute respiratory failure, unspecified whether with hypoxia or hypercapnia Status: Acute Assessment and Plan Assessment and Plan 56-year-old female admitted secondary to respiratory distress and COPD and pneumonia. GI complications, now status post ileostomy. Continue physical therapy. C-spine MRI is within normal limits. MRI of brain shows abnormal findings which are not specific (scattered white matter lesions, multiple sclerosis versus ischemic changes). Paraplegia of unknown etiology At this point I feel this status is no longer excusable weakness status post extubation Neurology following Continue PT Continue to follow for improvement MRI of brain ordered MRI C-spine ordered Plan for limb EMG Acute hypercarbic respiratory failure COPD exacerbation HCAP, LLL infiltrate Bronchospasms extubated 10/14. Respiratory status is improved and stable Continue oxygen as needed Breathing treatments as needed Continue Spiriva Pulmonology following Continue Zosyn Colonic ileus Status post ileostomy placed 10/13/16 Chronic hemorrhoids Speech therapy evaluation to determine if NG tube can be removed. NG tube has been removed Follow for any worsening of GI status Regular diet for now Continue Flagyl, Zosyn, and Diflucan Changed to by mouth Protonix. Leukocytosis May be secondary to steroids Improving Continue to follow CBC History of tobacco abuse Currently weaned off all nicotine Hypertension. Follow blood pressures Currently stable Continue Cardizem Continue hydralazine Hyperglycemia Stabilized Stop Following blood sugars as closely Global deconditioning Approximately 22 days in ICU much of which was on a ventilator Start physical therapy Start Occupational therapy DVT prophylaxis SCDs Andrea Meza MD Oct 22, 2016 11:30
[2016-10-22] MEDS: LEVOFLOXACIN 750 MG TAB PO SCH (16:35)
--- NOTE | 2016-10-22 17:56 | HHI.PR ---
Subjective Remarks C/R Surg POD afebrile, VSS PO radha UO good stoma funct Slow progr with PT, needs rehab for more vigorous exercise/ROM Objective - Vital Signs Date Time Temp Pulse Resp B/P (MAP) Pulse Ox O2 Delivery O2 Flow Rate FiO2 10/22/16 16:36 95 Nasal Cannula 2.00 10/22/16 16:00 97.8 94 18 118/64 (82) 10/21/16 19:35 21 Result Diagram: 10/19/1690410/21/16 0451 Objective Remarks PE Abd - lg, soft, mild tympany, wound clean A/P Assessment and Plan Imp: radha diet PT incr, barely OOB DC plans for rehab - hard due to insurance coverage Victor Manuel Yo MD Oct 22, 2016 17:56
--- NOTE | 2016-10-22 19:16 | HHI.PR ---
Subjective Remarks 56 YOWF with VDRF, , extubated 10/10 no Fever Tolerates PO Feels weak Family at BS Appetite good Objective Vital Signs Vital Signs Date Time Temp Pulse Resp B/P (MAP) Pulse Ox O2 Delivery O2 Flow Rate FiO2 10/22/16 18:02 85 10/22/16 16:36 95 Nasal Cannula 2.00 10/22/16 16:00 97.8 94 18 118/64 (82) 94 10/22/16 12:32 18 10/22/16 12:00 98.1 81 18 134/71 (92) 96 10/22/16 08:00 98.0 91 18 111/63 (79) 95 10/22/16 04:00 97.6 86 18 102/55 (71) 98 10/22/16 04:00 Nasal Cannula 2.00 10/22/16 03:20 99 Nasal Cannula 1.00 10/22/16 00:00 Room Air 10/22/16 00:00 98.7 94 18 122/66 (84) 95 10/21/16 20:00 110 10/21/16 20:00 Room Air 10/21/16 20:00 98.4 101 16 98/54 (69) 95 10/21/16 19:48 90 10/21/16 19:35 95 21 I/O 10/21/16 10/21/16 10/21/16 10/22/16 10/22/16 10/22/16 07:00 15:00 23:00 07:00 15:00 23:00 Intake Total 120 ml 960 ml 840 ml 480 ml Output Total 450 ml 600 ml 2200 ml 700 ml Balance -450 ml 120 ml 360 ml -1360 ml -220 ml Intake Oral 120 ml 960 ml 840 ml 480 ml IV Total 0 ml 0 ml Output Urine Total 450 ml 600 ml 1400 ml 600 ml Stool Total 800 ml 100 ml # Bowel Movements 0 Result Diagram: 10/19/16 0905 10/21/16 0451 Objective Remarks GENERAL: MBMN WF, on Vent SKIN: Warm and dry. HEAD: Normocephalic. EYES: No scleral icterus. No injection or drainage. NECK: Supple, trachea midline. No JVD or lymphadenopathy. CARDIOVASCULAR: Regular rate and rhythm without murmurs, gallops, or rubs. RESPIRATORY: Breath sounds equal bilaterally. No accessory muscle use. GASTROINTESTINAL: Abdomen soft, non-tender, nondistended. Ileostomy MUSCULOSKELETAL: No cyanosis, or edema. BACK: Nontender without obvious deformity. No CVA tenderness. A/P Assessment and Plan VDRF, s/p extubation 10/10 COPD Exac HTN Nicotine use S/p Exp Lap, ileostomy PLAN Abx per ID Duonebs qid Encourage PO Stable from pulm standpoint. Physical therapy. Abdirahman Marquez MD Oct 22, 2016 19:16
[2016-10-22] MEDS: ENOXAPARIN SODIUM 40 MG/0.4 ML SYRINGE SQ SCH (21:02)
[2016-10-23] VITALS (10 sets, daily range): BP systolic 104–125; BP diastolic 58–70; PULSE 69–92; RESP 18–20; TEMP 97.2–98.3; O2SAT 94–99
[2016-10-23] MEDS: RESP: ALBUTEROL 2.5 MG/IPRATROPIUM 0.5 MG NEB (PRN) NEB (02:24)
[2016-10-23] MEDS: DILTIAZEM HCL 60 MG TAB PO SCH ×4 (02:34→20:00)
[2016-10-23] MEDS: LORazepam 2 MG/ML VIAL IV PUSH PRN ×3 (02:34→16:36)
[2016-10-23] MEDS: MORPHINE SULFATE 4 MG/ML INJ IV PUSH PRN ×2 (03:58→12:56)
[2016-10-23] MEDS: hydrALAZINE HCL 50 MG TAB PO SCH ×3 (05:15→21:00)
[2016-10-23] MEDS: CHLORHEXIDINE 0.12% (ORAL KIT) 15 ML CUP MT SCH ×2 (07:31→20:00)
[2016-10-23] MEDS: SODIUM CHLORIDE 0.9% FLUSH 10 ML FLUSH IV FLUSH SCH ×2 (07:32→20:32)
[2016-10-23] MEDS: RESP: BUDESONIDE 0.5 MG/2 ML NEB NEB SCH ×2 (08:04→21:02)
[2016-10-23] MEDS: POTASSIUM CHLORIDE 20 MEQ CONTROLLED RELEASE TAB PO SCH ×2 (08:22→20:32)
[2016-10-23] MEDS: GABAPENTIN 100 MG CAP PO SCH ×3 (08:22→17:02)
[2016-10-23] MEDS: PANTOPRAZOLE SOD 20 MG DELAYED RELEASE TAB PO SCH (08:22)
[2016-10-23] MEDS: BENEPROTEIN POWDER 1 PACK G-TUBE SCH ×3 (08:23→17:02)
[2016-10-23] MEDS: TIOTROPIUM BROMIDE 18 MCG INH INH SCH (08:23)
--- NOTE | 2016-10-23 12:45 | HHI.PR ---
Subjective Remarks C/R Surg POD afebrile, VSS PO better UO good stoma funct Slow progr with PT, needs rehab for more vigorous exercise/ROM Objective - Vital Signs Date Time Temp Pulse Resp B/P (MAP) Pulse Ox O2 Delivery O2 Flow Rate FiO2 10/23/16 11:22 Nasal Cannula 2.00 21 10/23/16 08:05 95 10/23/16 08:00 97.2 81 18 112/68 (83) Result Diagram: 10/19/16 0905 10/21/16 0451 Objective Remarks PE Abd - lg, soft, mild tympany, wound clean -chris to be dc'd A/P Assessment and Plan Imp: radha diet PT incr, barely OOB DC plans for rehab - hard due to insurance coverage Victor Manuel Yo MD Oct 23, 2016 12:45
--- NOTE | 2016-10-23 14:04 | HHI.PR ---
Subjective Remarks Improved movement at right arm. The left arm and lower extremities are about the same as yesterday. Today she reports that she is on Symbicort and albuterol at baseline and requests resumption. Objective Vital Signs Date Time Temp Pulse Resp B/P (MAP) Pulse Ox O2 Delivery O2 Flow Rate FiO2 10/23/16 11:22 Nasal Cannula 2.00 21 10/23/16 08:05 95 10/23/16 08:00 97.2 81 18 112/68 (83) 94 10/23/16 04:00 97.8 69 18 105/58 (74) 97 10/23/16 02:24 96 21 10/23/16 00:00 98.3 84 18 115/62 (79) 99 10/22/16 20:44 95 21 10/22/16 20:00 Nasal Cannula 2.00 10/22/16 20:00 97.7 89 18 113/70 (84) 96 10/22/16 20:00 96 10/22/16 18:02 85 10/22/16 16:36 95 Nasal Cannula 2.00 10/22/16 16:00 97.8 94 18 118/64 (82) 94 I/O 10/22/16 10/22/16 10/22/16 10/23/16 10/23/16 10/23/16 07:00 15:00 23:00 07:00 15:00 23:00 Intake Total 840 ml 480 ml 360 ml Output Total 2200 ml 700 ml 850 ml Balance -1360 ml -220 ml -490 ml Intake Oral 840 ml 480 ml 360 ml IV Total 0 ml Output Urine Total 1400 ml 600 ml 500 ml Stool Total 800 ml 100 ml 350 ml # Bowel Movements 0 Result Diagram: 10/19/16 0905 10/21/16 0451 Objective Remarks GENERAL: NAD, A&Ox3 HEAD: Normocephalic. NG tube is in place. NECK: Supple, trachea midline. No lymphadenopathy. EYES: No scleral icterus. No injection or drainage. CARDIOVASCULAR: Regular rate and rhythm without murmurs, gallops, or rubs. RESPIRATORY: Breath sounds equal bilaterally. No accessory muscle use. GASTROINTESTINAL: Abdomen soft, non-tender, nondistended. MUSCULOSKELETAL: No cyanosis, or edema. SKIN: Warm and dry. NEURO: Global weakness, weakness of upper and lower extremities greater in the upper extremities, numbness in lower extremities. A/P Problem List: (1) Respiratory distress determined by examination ICD Code: R06.00 - Dyspnea, unspecified Status: Acute (2) COPD with exacerbation ICD Code: J44.1 - Chronic obstructive pulmonary disease with (acute) exacerbation Status: Acute (3) Acute respiratory failure with hypoxia ICD Code: J96.01 - Acute respiratory failure with hypoxia Status: Acute (4) Asthma exacerbation ICD Code: J45.901 - Unspecified asthma with (acute) exacerbation Status: Acute (5) Multiple sclerosis ICD Code: G35 - Multiple sclerosis Status: Acute (6) Multiple myeloma ICD Code: C90.00 - Multiple myeloma not having achieved remission Status: Acute (7) Acute kidney injury ICD Code: N17.9 - Acute kidney failure, unspecified Status: Resolved (8) Acute and chronic respiratory failure ICD Code: J96.20 - Acute and chronic respiratory failure, unspecified whether with hypoxia or hypercapnia Status: Chronic (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 - Demyelinating disease of central nervous system, unspecified Status: Acute (10) Tobacco abuse ICD Code: Z72.0 - Tobacco use Status: Chronic (11) Otitis media ICD Code: H66.90 - Otitis media, unspecified, unspecified ear Status: Acute (12) Hyperglycemia ICD Code: R73.9 - Hyperglycemia, unspecified Status: Resolved (13) Acidosis ICD Code: E87.2 - Acidosis Status: Resolved (14) Alcohol abuse ICD Code: F10.10 - Alcohol abuse, uncomplicated Status: Chronic (15) Hyperphosphatemia ICD Code: E83.39 - Other disorders of phosphorus metabolism Status: Resolved (16) Hypermagnesemia ICD Code: E83.41 - Hypermagnesemia Status: Acute (17) Acute hypernatremia ICD Code: E87.0 - Hyperosmolality and hypernatremia Status: Acute (18) Asystole ICD Code: I46.9 - Cardiac arrest, cause unspecified Status: Resolved (19) Cardiac arrest ICD Code: I46.9 - Cardiac arrest, cause unspecified Status: Resolved (20) Acute respiratory failure ICD Code: J96.00 - Acute respiratory failure, unspecified whether with hypoxia or hypercapnia Status: Acute Assessment and Plan Assessment and Plan 56-year-old female admitted secondary to respiratory distress and COPD and pneumonia. GI complications, now status post ileostomy. Continue physical therapy. C-spine MRI is within normal limits. MRI of brain shows abnormal findings which are not specific (scattered white matter lesions, multiple sclerosis versus ischemic changes). Symbicort albuterol resumed. Continue to follow patient's neuro status. Paraplegia of unknown etiology At this point I feel this status is no longer excusable weakness status post extubation Neurology following Continue PT Continue to follow for improvement MRI of brain ordered MRI C-spine ordered Plan for limb EMG Acute hypercarbic respiratory failure COPD exacerbation HCAP, LLL infiltrate Bronchospasms extubated 10/14. Respiratory status is improved and stable Continue oxygen as needed Breathing treatments as needed Continue Spiriva Pulmonology following Continue Zosyn Colonic ileus Status post ileostomy placed 10/13/16 Chronic hemorrhoids Speech therapy evaluation to determine if NG tube can be removed. NG tube has been removed Follow for any worsening of GI status Regular diet for now Continue Flagyl, Zosyn, and Diflucan Changed to by mouth Protonix. Leukocytosis May be secondary to steroids Improving Continue to follow CBC History of tobacco abuse Currently weaned off all nicotine Hypertension. Follow blood pressures Currently stable Continue Cardizem Continue hydralazine Hyperglycemia Stabilized Stop Following blood sugars as closely Global deconditioning Approximately 22 days in ICU much of which was on a ventilator Start physical therapy Start Occupational therapy DVT prophylaxis SCDs Andrea Meza MD Oct 23, 2016 14:04
[2016-10-23] MEDS ORDERED: RESP: ALBUTEROL 2.5 MG/3 ML NEB (SCH) NEB PRN (14:15)
[2016-10-23] MEDS: LEVOFLOXACIN 750 MG TAB PO SCH (16:33)
--- NOTE | 2016-10-23 18:52 | HHI.PR ---
Subjective Remarks 56 YOWF with VDRF, , extubated 10/10 no Fever Tolerates PO Feels weak Family at BS Appetite good Had EMG Objective Vital Signs Vital Signs Date Time Temp Pulse Resp B/P (MAP) Pulse Ox O2 Delivery O2 Flow Rate FiO2 10/23/16 12:00 97.9 83 20 117/70 (86) 95 10/23/16 11:22 Nasal Cannula 2.00 21 10/23/16 08:05 95 10/23/16 08:00 97.2 81 18 112/68 (83) 94 10/23/16 04:00 97.8 69 18 105/58 (74) 97 10/23/16 02:24 96 21 10/23/16 00:00 98.3 84 18 115/62 (79) 99 10/22/16 20:44 95 21 10/22/16 20:00 Nasal Cannula 2.00 10/22/16 20:00 97.7 89 18 113/70 (84) 96 10/22/16 20:00 96 I/O 10/22/16 10/22/16 10/22/16 10/23/16 10/23/16 10/23/16 06:59 14:59 22:59 06:59 14:59 22:59 Intake Total 840 ml 480 ml 360 ml Output Total 2200 ml 700 ml 850 ml Balance -1360 ml -220 ml -490 ml Intake Oral 840 ml 480 ml 360 ml IV Total 0 ml Output Urine Total 1400 ml 600 ml 500 ml Stool Total 800 ml 100 ml 350 ml # Bowel Movements 0 Result Diagram: 10/19/16 0910/21/16 0451 Objective Remarks GENERAL: MBMN WF, on Vent SKIN: Warm and dry. HEAD: Normocephalic. EYES: No scleral icterus. No injection or drainage. NECK: Supple, trachea midline. No JVD or lymphadenopathy. CARDIOVASCULAR: Regular rate and rhythm without murmurs, gallops, or rubs. RESPIRATORY: Breath sounds equal bilaterally. No accessory muscle use. GASTROINTESTINAL: Abdomen soft, non-tender, nondistended. Ileostomy MUSCULOSKELETAL: No cyanosis, or edema. BACK: Nontender without obvious deformity. No CVA tenderness. A/P Assessment and Plan VDRF, s/p extubation 10/10 COPD Exac HTN Nicotine use S/p Exp Lap, ileostomy PLAN Abx per ID Duonebs qid Encourage PO Stable from pulm standpoint. Physical therapy. DW pt and her BF Abdirahman Marquez MD Oct 23, 2016 18:52
--- NOTE | 2016-10-23 19:18 | PD.CONS ---
[facility] Service Rehabilitation Medicine Consult Requested By Franki Garcias MD Reason for Consult Comprehensive rehabilitation evaluation/EMG Primary Care Physician No Primary Care Physician History of Present Illness Lyudmila Oseguera is a 56-year-old female admitted [facility] 09/25/16 with 2 week history of increasing shortness of breath who was found to have acute respiratory distress. She was in the slurred treated with BiPAP. She required intubation. She is treated for possible pneumonia and received steroid treatment. She underwent decompressive colonoscopy 10/04/16 for ileus. She was extubated 10/10/16. On 10/13/16 she underwent exploratory laparotomy with diverting ileostomy and repair of colonic serosal splits due to pneumoperitoneum. She was seen by neurology due to upper and lower extremity weakness and paresthesias. She was noted to have possible critical illness polyneuropathy/ myopathy. Brain MRI 10/21/16 showed nonspecific white matter lesions. She has been started on gabapentin with improvement in her paresthesias. Review of Systems Constitutional: COMPLAINS OF: Fatigue Eyes: DENIES: Diplopia Ears, nose, mouth, throat: DENIES: Throat pain Respiratory: DENIES: Shortness of breath Cardiovascular: DENIES: Chest pain Genitourinary: COMPLAINS OF: Urinary incontinence Integumentary: DENIES: Pruritus Hematologic/lymphatic: DENIES: Bruising Immunologic/allergic: DENIES: Urticaria Neurologic: COMPLAINS OF: Localized weakness (weakness in all 4 extremities), Paresthesias (primarily in the distal lower extremities), DENIES: Speech Problems Psychiatric: DENIES: Confusion Past Family Social History Allergies: Coded Allergies: No Known Allergies (Unverified , 09/24/16) Past Medical History Hypertension COPD Asthma Past Surgical History Tubal ligation Current Medications Current Medications Medications (Trade) Dose Ordered Sig/Amadou Route Start Time Stop Time Status Last Admin (NS Flush) 2 ml UNSCH PRN IV FLUSH 09/25/16 06:15 10/13/16 07:53 (NS Flush) 2 ml BID IV FLUSH 09/25/16 09:00 10/23/16 07:32 (Narcan Inj) 0.4 mg UNSCH PRN IV 09/25/16 06:15 (Lopressor) 50 mg BID PO 09/25/16 09:00 Future Hold 09/25/16 19:41 (Prinivil) 10 mg DAILY PO 09/25/16 09:00 Future Hold 09/25/16 08:32 (Hydrodiuril) 12.5 mg DAILY PO 09/25/16 09:00 Future Hold 09/25/16 08:32 (Pulmicort Respule Neb) 0.5 mg Q12HR NEB NEB 09/25/16 12:45 10/23/16 08:04 (Spiriva Inh) 18 mcg DAILY INH 09/25/16 12:45 10/23/16 08:23 (Haldol Inj) 5 mg Q6H PRN IV PUSH 09/26/16 10:15 10/10/16 22:46 (Ativan Inj) 1 mg Q4H PRN IV PUSH 09/26/16 15:00 10/23/16 16:36 (Cardizem) 60 mg Q6H PO 09/29/16 14:00 10/23/16 13:00 (Reglan Inj) 10 mg Q8HR IV PUSH 10/01/16 09:00 Future Hold 10/13/16 06:23 (Peridex 0.12% Liq) 15 ml BID@08,20 MT 10/03/16 20:00 10/23/16 07:31 (Apresoline Inj) 10 mg Q1HR PRN IV PUSH 10/04/16 16:00 10/13/16 07:52 (Trandate Inj) 10 mg Q1HR PRN IV PUSH 10/04/16 16:00 (Vasotec Inj) 1.25 mg Q6H PRN IV PUSH 10/04/16 16:00 (Apresoline) 50 mg Q8HR PO 10/13/16 14:00 10/23/16 13:00 (Morphine Inj) 1 mg Q4H PRN IV PUSH 10/13/16 11:15 10/23/16 12:56 (Zofran Inj) 4 mg Q6H PRN IV PUSH 10/13/16 11:15 10/22/16 05:09 (Beneprotein Powder) 1 pack TID G-TUBE 10/14/16 13:00 10/22/16 15:15 (Protonix) 20 mg DAILY PO 10/18/16 09:00 10/23/16 08:22 (Levaquin) 750 mg DAILY@17 PO 10/17/16 17:00 10/24/16 16:59 10/23/16 16:33 (KCl) 20 meq Q12HR PO 10/20/16 09:00 10/23/16 08:22 (Neurontin) 100 mg TID PO 10/20/16 18:00 10/23/16 17:02 (Lovenox Inj) 40 mg Q24H SQ 10/22/16 20:00 10/22/16 21:02 (Symbicort 160-4.5 Inh) 1 puff Q12HR INH 10/23/16 21:00 (Duoneb Neb) 1 ampule Q2HR NEB PRN NEB 10/23/16 15:30 Family History Noncontributory to the history of present illness Social History Prior to admission patient reports she was independent with all mobility and ADLs. Patient lives in [place], [place]. She reports that she was working at [employer] prior to admission. Exam I&O / VS Vital Signs Date Time Temp Pulse Resp B/P (MAP) Pulse Ox O2 Delivery O2 Flow Rate FiO2 10/23/16 12:00 97.9 83 20 117/70 (86) 95 10/23/16 11:22 Nasal Cannula 2.00 21 10/23/16 08:05 95 10/23/16 08:00 97.2 81 18 112/68 (83) 94 10/23/16 04:00 97.8 69 18 105/58 (74) 97 10/23/16 02:24 96 21 10/23/16 00:00 98.3 84 18 115/62 (79) 99 10/22/16 20:44 95 21 10/22/16 20:00 Nasal Cannula 2.00 10/22/16 20:00 97.7 89 18 113/70 (84) 96 10/22/16 20:00 96 General: No acute distress Exam Comments Nerve Conduction Studies Anti Sensory Summary Table Site NR Peak (ms) Norm Peak (ms) P-T Amp (V) Norm P-T Amp Site1 Site2 Delta-P (ms) Dist (cm) Spencer (m/s) Norm Spencer (m/s) Left Median Anti Sensory (2nd Digit) Wrist NR <3.6 500.0 >10 Wrist 2nd Digit 1.6 14.0 >39 Right Median Anti Sensory (2nd Digit) Wrist 4.4 <3.6 41.6 >10 Wrist 2nd Digit 4.4 14.0 >39 4.4 32.2 Elbow Wrist 0.0 0.0 >48 Right and Left Sural Anti Sensory (Lat Mall) Calf NR <4.0 10.7 >5.0 Calf Lat Mall 1.2 14.0 >35 22.3 Left Ulnar Anti Sensory (5th Digit) Wrist 4.8 <3.7 451.1 >15.0 Wrist 5th Digit 4.8 14.0 >38 Right Ulnar Anti Sensory (5th Digit) Wrist NR <3.7 135.4 >15.0 Wrist 5th Digit 3.8 14.0 >38 Motor Summary Table Site NR Onset (ms) Norm Onset (ms) O-P Amp (mV) Norm O-P Amp Site1 Site2 Delta- 0 (ms) Dist (cm) Spencer (m/s) Norm Spencer (m/s) Left Median Motor (Abd Poll Brev) Wrist 3.8 <4.2 3.7 >5 Elbow Wrist 3.9 21.5 55 >50 Elbow 7.7 3.4 Right Median Motor (Abd Poll Brev) Wrist 3.8 <4.2 4.6 >5 Elbow Wrist 4.2 21.5 51 >50 Elbow 8.0 4.4 Left Peroneal Motor (Ext Dig Brev) Ankle 5.3 <6.1 0.9 >2.5 B Fib Ankle 8.5 28.0 33 >38 B Fib 13.8 0.7 Right Peroneal Motor (Ext Dig Brev) Ankle 7.5 <6.1 2.1 >2.5 B Fib Ankle 9.0 36.0 40 >38 B Fib 16.5 3.4 Left Tibial Motor (Abd Urban Brev) Ankle 7.1 <6.1 2.4 >3.0 Knee Ankle 9.2 38.0 41 >35 Knee 16.3 3.7 Right Tibial Motor (Abd Urban Brev) Ankle 6.3 <6.1 1.3 >3.0 Knee Ankle 37.5 37.5 >35 Knee 12.8 1.1 Left Ulnar Motor (Abd Dig Minimi) Wrist 2.7 <4.2 4.1 >3 Elbow Wrist 3.6 20.0 56 >53 Elbow 6.3 3.0 Right Ulnar Motor (Abd Dig Minimi) Wrist 3.7 <4.2 3.6 >3 Elbow Wrist 3.3 17.0 52 >53 Elbow 7.0 3.2 F Wave Studies NR F-Lat (ms) Lat Norm (ms) L-R F-Lat (ms) L-R Lat Norm Left Median (Mrkrs) (Abd Poll Brev) 27.71 <33 0.00 <2.2 Right Median (Mrkrs) (Abd Poll Brev) 27.71 <33 0.00 <2.2 EMG Side Muscle Nerve Root Ins Act Fibs Psw Amp Dur Poly Recrt Int Pat Comment Left 1stDorInt Ulnar C8-T1 Nml Nml Nml Nml Nml 0 Nml 50% Left Abd Poll Brev Median C8-T1 Nml Nml Nml Nml Nml 0 Nml 75% Left FlexCarRad Median C6-7 Nml Nml Nml Decr Nml 0 Nml 50% Left Biceps Musculocut C5-6 Nml Nml Nml Decr Nml 0 Nml 50% Left VastusMed Femoral L2-4 Nml 2+ 2+ Decr Nml 0 Nml 10% Left AntTibialis Dp Br Peron L4-5 Nml 1+ 1+ Nml 0 Nml 0% Left MedGastroc Tibial S1-2 Nml Nml Nml Decrl Nml 0 Nml 75% Left AbdHallucis MedPlantar S1-2 Nml Nml Nml Decr Nml 0 Nml 25% Right VastusMed Femoral L2-4 Nml 1+ Nml Incr Nml 0 Nml 50% Right AntTibialis Dp Br Peron L4-5 Nml 1+ Nml Incr Nml 0 Nml 50% Right MedGastroc Tibial S1-2 Nml Nml 1+ Incrl Nml 0 Nml 50% Right AbdHallucis MedPlantar S1-2 Nml Nml 1+ Incr Nml 0 Nml 50% Right 1stDorInt Ulnar C8-T1 Nml Nml Nml Incr Nml 0 Nml 10% Right Abd Poll Brev Median C8-T1 Nml Nml Nml Nml Nml 0 Nml 10% Right FlexCarRad Median C6-7 Nml Nml Nml Nml Nml 0 Nml 10% Right Biceps Musculocut C5-6 Nml Nml Nml Inc Nml 0 Nml 10% Assessment and Plan Diagnosis: (1) Critical illness polyneuropathy ICD Codes: G62.81 - Critical illness polyneuropathy Status: Acute (2) Critical illness myopathy ICD Codes: G72.81 - Critical illness myopathy Status: Acute Assessment 1. Nerve conduction/EMG testing is consistent with critical illness polyneuropathy/myopathy: EMG & NCV Findings: Evaluation of the Left Median Motor and the Right Median Motor nerves showed reduced amplitude (L3.7, R4.6 mV). The Right Ulnar Motor nerve showed decreased conduction velocity (Elbow-Wrist, 52 m/s). The Right Median Anti Sensory nerve showed prolonged distal peak latency (4.4 ms ). The Left Ulnar Anti Sensory and the Right Ulnar Anti Sensory nerves showed no response. The Left Peroneal Motor nerve showed reduced amplitude (0.9 mV) and decreased conduction velocity (B Fib-Ankle, 33 m/s). The Left Tibial Motor nerve showed decreased amplitude (1.3 mV) The Right Peroneal Motor and the Right Tibial Motor nerves showed prolonged distal onset latency (R7.5, R 6.5 ms) and reduced amplitude (R2.1, R1.3 mV). Sural sensory nerves bilaterally showed no response. All remaining nerves (as indicated in the following tables) were within normal limits. Needle evaluation showed denervation potentials bilaterally with myopathic and neuropathic units. Kasia Dougherty MD Oct 23, 2016 19:18
[2016-10-23] MEDS: ENOXAPARIN SODIUM 40 MG/0.4 ML SYRINGE SQ SCH (20:31)
[2016-10-23] MEDS: BUDESONIDE-FORMOTEROL 160/4.5 MCG INHALER INH SCH (21:00)
[2016-10-24] VITALS (10 sets, daily range): BP systolic 102–127; BP diastolic 68–75; PULSE 92–106; RESP 18–20; TEMP 97.8–98.6; O2SAT 93–94
[2016-10-24] MEDS: DILTIAZEM HCL 60 MG TAB PO SCH ×4 (01:51→20:43)
[2016-10-24] MEDS: SODIUM CHLORIDE 0.9% FLUSH 10 ML FLUSH IV FLUSH PRN (03:08)
[2016-10-24] MEDS: LORazepam 2 MG/ML VIAL IV PUSH PRN ×5 (03:08→22:43)
[2016-10-24] MEDS: MORPHINE SULFATE 4 MG/ML INJ IV PUSH PRN ×3 (04:49→20:47)
[2016-10-24] MEDS: hydrALAZINE HCL 50 MG TAB PO SCH ×3 (06:00→21:59)
[2016-10-24 06:53] LABS: HEMATOCRIT 35.8 % (35.0-46.0); MEAN CELL VOLUME 89.4 FL (80.0-100.0); MEAN CORPUSCULAR HEMOGLOBIN 30.5 PG (27.0-34.0); MEAN CORPUSCULAR HGB CONC 34.1 % (32.0-36.0); PLATELET COUNT 217 TH/MM3 (150-450); RED BLOOD COUNT 4.01 MIL/MM3 (4.00-5.30); RED CELL DISTRIBUTION WIDTH 13.3 % (11.6-17.2); REVIEW FLAG FINAL; WHITE BLOOD COUNT 10.4 TH/MM3 (4.0-11.0)
[2016-10-24 07:19] LABS: BICARBONATE 23.5 MEQ/L (21.0-32.0); POTASSIUM 3.8 MEQ/L (3.5-5.1)
[2016-10-24] MEDS: RESP: BUDESONIDE 0.5 MG/2 ML NEB NEB SCH ×2 (07:57→21:41)
[2016-10-24] MEDS: CHLORHEXIDINE 0.12% (ORAL KIT) 15 ML CUP MT SCH ×2 (08:00→20:00)
[2016-10-24] MEDS: BENEPROTEIN POWDER 1 PACK G-TUBE SCH ×3 (09:00→18:00)
[2016-10-24] MEDS: GABAPENTIN 100 MG CAP PO SCH ×3 (09:05→18:14)
[2016-10-24] MEDS: PANTOPRAZOLE SOD 20 MG DELAYED RELEASE TAB PO SCH (09:05)
[2016-10-24] MEDS: POTASSIUM CHLORIDE 20 MEQ CONTROLLED RELEASE TAB PO SCH ×2 (09:06→20:43)
[2016-10-24] MEDS: SODIUM CHLORIDE 0.9% FLUSH 10 ML FLUSH IV FLUSH SCH ×2 (09:06→20:44)
[2016-10-24] MEDS: BUDESONIDE-FORMOTEROL 160/4.5 MCG INHALER INH SCH ×2 (12:32→20:44)
[2016-10-24] MEDS: TIOTROPIUM BROMIDE 18 MCG INH INH SCH (12:36)
--- NOTE | 2016-10-24 13:23 | HHI.PR ---
Subjective Remarks Patient stable in her bedroom, no complaint, he is with her Daughter in the room Miss Malissa Hercules. 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 No nausea, vomit or diarrhea. Objective Vital Signs Date Time Temp Pulse Resp B/P (MAP) Pulse Ox O2 Delivery O2 Flow Rate FiO2 10/24/16 08:01 93 Nasal Cannula 3.00 10/24/16 08:00 98.0 95 20 113/75 (88) 94 10/24/16 04:00 98.0 92 20 109/71 (84) 94 10/24/16 00:00 98.1 100 20 109/70 (83) 93 10/23/16 21:02 96 21 10/23/16 20:00 98.1 90 20 104/61 (75) 94 10/23/16 20:00 92 10/23/16 20:00 Nasal Cannula 2.00 10/23/16 16:00 97.7 90 20 125/58 (80) 95 I/O 10/23/16 10/23/16 10/23/16 10/24/16 10/24/16 10/24/16 06:59 14:59 22:59 06:59 14:59 22:59 Intake Total 360 ml 960 ml 240 ml Output Total 850 ml 900 ml 200 ml Balance -490 ml 60 ml 40 ml Intake Oral 360 ml 960 ml 240 ml Output Urine Total 500 ml 400 ml Stool Total 350 ml 500 ml 200 ml # Voids 2 Result Diagram: 10/24/16 0620 10/24/16 0620 Imaging Last Impressions Cervical Spine MRI 10/21/16 0000 Signed Impressions: Service Date/Time: Friday, October 21, 2016 08:43 - CONCLUSION: 1. Motion degraded exam. 2. No acute abnormality. 3. Mild degenerative disc disease without neural impingement. Jamie Tobin Jr., MD Brain MRI 10/21/16 0000 Signed Impressions: Service Date/Time: Friday, October 21, 2016 08:43 - CONCLUSION: 1. Unchanged nonspecific white matter lesions as detailed above. Differential diagnostic considerations remains quite broad. The 2 most likely etiologies would be a demyelinating process such as multiple sclerosus versus chronic small vessel ischemic change. Jamie Tobin Jr., MD Chest X-Ray 10/13/16 0000 Signed Impressions: Service Date/Time: Thursday, October 13, 2016 19:05 - CONCLUSION: 1. Endotracheal tube tip is approximate 16 mm above the joel. 2. Unchanged nasogastric tube, courses into the stomach. 3. Unchanged mild left base consolidation. Oliver Potter MD Abdomen/Pelvis CT 10/13/16 0000 Signed Impressions: Service Date/Time: Thursday, October 13, 2016 13:13 - CONCLUSION: 1. Pneumoperitoneum likely from the hepatic flexure region of the colon. Pneumatosis was seen in this region on the prior exam. This area now appears thickened. 2. Induration around the pancreas concerning for pancreatitis. 3. New consolidation or atelectasis at the medial left lung base. Oliver Soria MD Abdomen X-Ray 10/12/16 0000 Signed Impressions: Service Date/Time: Wednesday, October 12, 2016 07:42 - CONCLUSION: Nasogastric tube in good position, probably ileus. Rico Boston MD FACR Procedures Endotracheal Intubation and extubation. Expressive Colonoscopy Ileostomy Other Results Laboratory Tests Test 09/25/16 00:00 09/26/16 11:15 10/04/16 08:23 10/05/16 04:49 Nasal Screen MRSA (PCR) MRSA NOT DETECTED Urine Squamous Epithelial Cells <1 /hpf Urine Hyaline Casts 6 /lpf Blood Urea Nitrogen 24 MG/DL Creatinine 0.56 MG/DL Random Glucose 129 MG/DL Total Protein 5.6 GM/DL Albumin 2.5 GM/DL Calcium Level 8.3 MG/DL Phosphorus Level 3.1 MG/DL Magnesium Level 2.7 MG/DL Alkaline Phosphatase 45 U/L Aspartate Amino Transf (AST/SGOT) 41 U/L Alanine Aminotransferase (ALT/SGPT) 74 U/L Total Bilirubin 0.3 MG/DL Direct Bilirubin 0.1 MG/DL Sodium Level 140 MEQ/L Potassium Level 4.0 MEQ/L Chloride Level 100 MEQ/L Carbon Dioxide Level 33.1 MEQ/L Indirect Bilirubin 0.2 MG/DL Thyroid Stimulating Hormone 3rd Gen 0.247 uIU/ML Lactic Acid Level 1.4 mmol/L Total Creatine Kinase 285 U/L Creatine Kinase MB 13.3 NG/ML Creatine Kinase MB % 4.7 % Free Thyroxine 0.74 NG/DL Free Triiodothyronine (T3) pg/dL 0.88 PG/ML Test 10/05/16 12:30 10/05/16 21:00 10/06/16 08:10 10/07/16 05:00 Troponin I 0.04 NG/ML Urine Color YELLOW Urine Turbidity CLEAR Urine pH 5.5 Urine Specific Pierce 1.022 Urine Protein TRACE mg/dL Urine Glucose (UA) NEG mg/dL Urine Ketones NEG mg/dL Urine Occult Blood SMALL Urine Nitrite NEG Urine Bilirubin NEG Urine Urobilinogen LESS THAN 2.0 MG/DL Urine Leukocyte Esterase NEG Urine RBC 92 /hpf Urine WBC 3 /hpf Urine Bacteria RARE /hpf Urine Mucus FEW /lpf Microscopic Urinalysis Comment CATH-CULTURE IND Nucleated Red Blood Cells 1 /100 WBC Stool C. difficile Toxin (PCR) NEGATIVE Stl C. difficile Toxin Epiderm 027 PRESUMPTIVE NEGATIVE Test 10/09/16 05:45 10/11/16 08:59 10/13/16 14:30 10/13/16 20:04 Promyelocytes 1 % Toxic Vacuolation PRESENT Metamyelocytes 2 % Prothrombin Time 9.9 SEC Prothromb Time International Ratio 0.9 RATIO Blood Gas Puncture Site ART LINE Blood Gas Patient Temperature 98.6 Blood Gas HCO3 21 mmol/L Blood Gas Base Excess -3.0 mmol/L Blood Gas Oxygen Saturation 97 % Arterial Blood pH 7.40 Arterial Blood Partial Pressure CO2 35 mmHg Arterial Blood Partial Pressure O2 173 mmHg Arterial Blood Oxygen Content 16.7 Vol % Arterial Blood Carboxyhemoglobin 1.4 % Arterial Blood Methemoglobin 1.2 % Blood Gas Hemoglobin 12.0 G/DL Oxygen Delivery Device VENTILATOR Blood Gas Ventilator Setting AC/10/500/PEEP8 Blood Gas Inspired Oxygen 70 % Test 10/14/16 04:45 10/15/16 05:10 10/17/16 11:50 10/18/16 04:38 Blood Urea Nitrogen 21 MG/DL 18 MG/DL Creatinine 0.29 MG/DL 0.31 MG/DL Random Glucose 113 MG/DL 83 MG/DL Total Protein 5.1 GM/DL 6.6 GM/DL Albumin 1.9 GM/DL 3.4 GM/DL Calcium Level 7.6 MG/DL 9.0 MG/DL Phosphorus Level 2.5 MG/DL Magnesium Level 2.1 MG/DL Alkaline Phosphatase 64 U/L 74 U/L Aspartate Amino Transf (AST/SGOT) 142 U/L 47 U/L Alanine Aminotransferase (ALT/SGPT) 362 U/L 207 U/L Total Bilirubin 0.7 MG/DL 0.8 MG/DL Sodium Level 137 MEQ/L 136 MEQ/L Potassium Level 4.4 MEQ/L 3.2 MEQ/L Chloride Level 105 MEQ/L 101 MEQ/L Carbon Dioxide Level 26.4 MEQ/L 24.2 MEQ/L Amylase Level 95 U/L Lipase 315 U/L Vancomycin Level Trough 9.1 MCG/ML Red Cell Morphology Comment NORMAL Neutrophils (%) (Auto) 83.3 % Lymphocytes (%) (Auto) 9.0 % Monocytes (%) (Auto) 6.4 % Eosinophils (%) (Auto) 1.2 % Basophils (%) (Auto) 0.1 % Neutrophils # (Auto) 11.7 TH/MM3 Lymphocytes # (Auto) 1.3 TH/MM3 Monocytes # (Auto) 0.9 TH/MM3 Eosinophils # (Auto) 0.2 TH/MM3 Basophils # (Auto) 0.0 TH/MM3 CBC Comment AUTO DIFF Differential Total Cells Counted 100 Neutrophils % (Manual) 76 % Band Neutrophils % 7 % Lymphocytes % 7 % Monocytes % 8 % Neutrophils # (Manual) 12.0 TH/MM3 Myelocytes 2 % Differential Comment FINAL DIFF MANUAL Platelet Estimate NORMAL Platelet Morphology Comment NORMAL Test 10/19/16 09:05 10/24/16 06:20 Vitamin B12 Level 621 PG/ML White Blood Count 10.4 TH/MM3 Red Blood Count 4.01 MIL/MM3 Hemoglobin 12.2 GM/DL Hematocrit 35.8 % Mean Corpuscular Volume 89.4 FL Mean Corpuscular Hemoglobin 30.5 PG Mean Corpuscular Hemoglobin Concent 34.1 % Red Cell Distribution Width 13.3 % Platelet Count 217 TH/MM3 Mean Platelet Volume 8.4 FL Blood Urea Nitrogen 8 MG/DL Creatinine 0.23 MG/DL Random Glucose 91 MG/DL Calcium Level 9.2 MG/DL Sodium Level 133 MEQ/L Potassium Level 3.8 MEQ/L Chloride Level 100 MEQ/L Carbon Dioxide Level 23.5 MEQ/L Anion Gap 10 MEQ/L Estimat Glomerular Filtration Rate 313 ML/MIN Objective Remarks GENERAL: NAD, A&Ox3 HEAD: Normocephalic. NG tube is in place. NECK: Supple, trachea midline. No lymphadenopathy. EYES: No scleral icterus. No injection or drainage. CARDIOVASCULAR: Regular rate and rhythm without murmurs, gallops, or rubs. RESPIRATORY: Breath sounds equal bilaterally. No accessory muscle use. GASTROINTESTINAL: Abdomen soft, non-tender, nondistended. MUSCULOSKELETAL: No cyanosis, or edema. SKIN: Warm and dry. NEURO: Global weakness, weakness of upper and lower extremities greater in the upper extremities, numbness in lower extremities. Medications and IVs Current Medications Medications (Trade) Dose Ordered Sig/Amadou Route Start Time Stop Time Status Last Admin (NS Flush) 2 ml UNSCH PRN IV FLUSH 09/25/16 06:15 10/24/16 03:08 (NS Flush) 2 ml BID IV FLUSH 09/25/16 09:00 10/24/16 09:06 (Narcan Inj) 0.4 mg UNSCH PRN IV 09/25/16 06:15 (Lopressor) 50 mg BID PO 09/25/16 09:00 Future Hold 09/25/16 19:41 (Prinivil) 10 mg DAILY PO 09/25/16 09:00 Future Hold 09/25/16 08:32 (Hydrodiuril) 12.5 mg DAILY PO 09/25/16 09:00 Future Hold 09/25/16 08:32 (Pulmicort Respule Neb) 0.5 mg Q12HR NEB NEB 09/25/16 12:45 10/24/16 07:57 (Spiriva Inh) 18 mcg DAILY INH 09/25/16 12:45 10/24/16 12:36 (Haldol Inj) 5 mg Q6H PRN IV PUSH 09/26/16 10:15 10/10/16 22:46 (Ativan Inj) 1 mg Q4H PRN IV PUSH 09/26/16 15:00 10/24/16 09:08 (Cardizem) 60 mg Q6H PO 09/29/16 14:00 10/24/16 09:05 (Reglan Inj) 10 mg Q8HR IV PUSH 10/01/16 09:00 Future Hold 10/13/16 06:23 (Peridex 0.12% Liq) 15 ml BID@08,20 MT 10/03/16 20:00 10/23/16 07:31 (Apresoline Inj) 10 mg Q1HR PRN IV PUSH 10/04/16 16:00 10/13/16 07:52 (Trandate Inj) 10 mg Q1HR PRN IV PUSH 10/04/16 16:00 (Vasotec Inj) 1.25 mg Q6H PRN IV PUSH 10/04/16 16:00 (Apresoline) 50 mg Q8HR PO 10/13/16 14:00 10/23/16 13:00 (Morphine Inj) 1 mg Q4H PRN IV PUSH 10/13/16 11:15 10/24/16 11:38 (Zofran Inj) 4 mg Q6H PRN IV PUSH 10/13/16 11:15 10/22/16 05:09 (Beneprotein Powder) 1 pack TID G-TUBE 10/14/16 13:00 10/22/16 15:15 (Protonix) 20 mg DAILY PO 10/18/16 09:00 10/24/16 09:05 (Levaquin) 750 mg DAILY@17 PO 10/17/16 17:00 10/24/16 16:59 10/23/16 16:33 (KCl) 20 meq Q12HR PO 10/20/16 09:00 10/24/16 09:06 (Neurontin) 100 mg TID PO 10/20/16 18:00 10/24/16 09:05 (Lovenox Inj) 40 mg Q24H SQ 10/22/16 20:00 10/23/16 20:31 (Symbicort 160-4.5 Inh) 1 puff Q12HR INH 10/23/16 21:00 10/24/16 12:32 (Duoneb Neb) 1 ampule Q2HR NEB PRN NEB 10/23/16 15:30 A/P Assessment and Plan 56-year-old female admitted secondary to respiratory distress and COPD and pneumonia. GI complications, now status post ileostomy. Continue physical therapy. C-spine MRI is within normal limits. MRI of brain shows abnormal findings which are not specific (scattered white matter lesions, multiple sclerosis versus ischemic changes). Symbicort albuterol resumed. Continue to follow patient's neuro status. Paraplegia of unknown etiology Critical Illness Polyneuropathy as per Neurology specialist, secondary to Bedridden Status plus steroids plus infection MRI brain do not think in MS or cord compression, recommended EMG limbs by Rehab Medicine but she is improving. Continue PT, Gabapentin for Paresthesias, Limit Steroid use and repeat MRI in 2 to 3 months. Acute hypercarbic respiratory failure COPD exacerbation HCAP, LLL infiltrate Bronchospasms extubated 10/10 Continue Pulmonary following, bronchodilator, Mucolytic and Incentive spirometry. Zosyn. Oxygen as needed Colonic ileus Status post ileostomy placed 10/13/16 Chronic hemorrhoids Regular diet for now Levaquin and Flagyl until today 10/24/16 as per ID specialist. Leukocytosis May be secondary to steroids Improving History of tobacco abuse Currently weaned off all nicotine, Strongly recommended to stop smoking. Hypertension. Controlled. Hyperglycemia Stabilized Stop Following blood sugars as closely Global deconditioning Approximately 22 days in ICU much of which was on a ventilator Start physical therapy Start Occupational therapy DVT prophylaxis SCDs Discharge Planning Once cleared by specialists. already seen by Rehab Medicine. Raciel Dorman MD Oct 24, 2016 13:23
[2016-10-24] MEDS: RESP: ALBUTEROL 2.5 MG/IPRATROPIUM 0.5 MG NEB (PRN) NEB (15:42)
--- NOTE | 2016-10-24 18:19 | HHI.PR ---
Subjective Remarks 56 YOWF with VDRF, , extubated 10/10 no Fever Tolerates PO Feels weak Family at BS Appetite good No new complaint Objective Vital Signs Vital Signs Date Time Temp Pulse Resp B/P (MAP) Pulse Ox O2 Delivery O2 Flow Rate FiO2 10/24/16 12:00 98.0 95 20 102/68 (79) 93 10/24/16 08:01 93 Nasal Cannula 3.00 10/24/16 08:00 98.0 95 20 113/75 (88) 94 10/24/16 04:00 98.0 92 20 109/71 (84) 94 10/24/16 00:00 98.1 100 20 109/70 (83) 93 10/23/16 21:02 96 21 10/23/16 20:00 98.1 90 20 104/61 (75) 94 10/23/16 20:00 92 10/23/16 20:00 Nasal Cannula 2.00 I/O 10/23/16 10/23/16 10/23/16 10/24/16 10/24/16 10/24/16 07:00 15:00 23:00 07:00 15:00 23:00 Intake Total 360 ml 960 ml 240 ml Output Total 850 ml 900 ml 200 ml Balance -490 ml 60 ml 40 ml Intake Oral 360 ml 960 ml 240 ml Output Urine Total 500 ml 400 ml Stool Total 350 ml 500 ml 200 ml # Voids 2 Result Diagram: 10/24/16 0620 10/24/16 06 Objective Remarks GENERAL: MBMN WF, on Vent SKIN: Warm and dry. HEAD: Normocephalic. EYES: No scleral icterus. No injection or drainage. NECK: Supple, trachea midline. No JVD or lymphadenopathy. CARDIOVASCULAR: Regular rate and rhythm without murmurs, gallops, or rubs. RESPIRATORY: Breath sounds equal bilaterally. No accessory muscle use. GASTROINTESTINAL: Abdomen soft, non-tender, nondistended. Ileostomy MUSCULOSKELETAL: No cyanosis, or edema. BACK: Nontender without obvious deformity. No CVA tenderness. A/P Assessment and Plan VDRF, s/p extubation 10/10 COPD Exac HTN Nicotine use S/p Exp Lap, ileostomy PLAN Abx per ID Duonebs qid Encourage PO Stable from pulm standpoint. Physical therapy. Stable from pulm standpoint Abdirahman Marquez MD Oct 24, 2016 18:19
[2016-10-24] MEDS: ENOXAPARIN SODIUM 40 MG/0.4 ML SYRINGE SQ SCH (20:43)
[2016-10-25] VITALS (9 sets, daily range): BP systolic 105–115; BP diastolic 58–70; PULSE 90–104; RESP 18–20; TEMP 97.4–98.9; O2SAT 93–96
[2016-10-25] MEDS: RESP: ALBUTEROL 2.5 MG/IPRATROPIUM 0.5 MG NEB (PRN) NEB ×2 (02:27→07:53)
[2016-10-25] MEDS: DILTIAZEM HCL 60 MG TAB PO SCH ×4 (02:42→21:15)
[2016-10-25] MEDS: LORazepam 2 MG/ML VIAL IV PUSH PRN ×5 (02:42→21:16)
[2016-10-25] MEDS: hydrALAZINE HCL 50 MG TAB PO SCH ×3 (05:23→21:15)
[2016-10-25] MEDS: MORPHINE SULFATE 4 MG/ML INJ IV PUSH PRN ×4 (05:24→21:16)
[2016-10-25] MEDS: CHLORHEXIDINE 0.12% (ORAL KIT) 15 ML CUP MT SCH ×2 (07:48→20:00)
[2016-10-25] MEDS: RESP: BUDESONIDE 0.5 MG/2 ML NEB NEB SCH ×2 (07:52→19:47)
[2016-10-25] MEDS: PANTOPRAZOLE SOD 20 MG DELAYED RELEASE TAB PO SCH (08:54)
[2016-10-25] MEDS: POTASSIUM CHLORIDE 20 MEQ CONTROLLED RELEASE TAB PO SCH ×2 (08:54→21:14)
[2016-10-25] MEDS: GABAPENTIN 100 MG CAP PO SCH ×3 (08:54→17:13)
[2016-10-25] MEDS: SODIUM CHLORIDE 0.9% FLUSH 10 ML FLUSH IV FLUSH SCH ×2 (08:55→21:15)
[2016-10-25] MEDS: TIOTROPIUM BROMIDE 18 MCG INH INH SCH (08:55)
[2016-10-25] MEDS: BUDESONIDE-FORMOTEROL 160/4.5 MCG INHALER INH SCH ×2 (08:55→21:15)
[2016-10-25] MEDS: BENEPROTEIN POWDER 1 PACK G-TUBE SCH ×3 (08:56→17:05)
--- NOTE | 2016-10-25 12:17 | HHI.PR ---
Subjective Remarks Patient stable in her bedroom, no complaint, he is with her Daughter in the room Miss Malissa Hercules. discussed with nurse patient has more hand nps today. No nausea, vomit or diarrhea. 10/25: Stable in her bedroom as per Notes the patient will be discharge to Home with Hospice today also she was seen by Rehab medicine two days ago will try to discuss in am tomorrow with Chucking Machine Set Up Operator to coordinate the discharge, at this time no nausea, vomit or diarrhea. receiving respiratory therapy. Objective Vital Signs Date Time Temp Pulse Resp B/P (MAP) Pulse Ox O2 Delivery O2 Flow Rate FiO2 10/25/16 09:17 20 10/25/16 08:50 98 10/25/16 08:50 Room Air 10/25/16 08:00 97.5 100 20 114/63 (80) 94 10/25/16 07:56 96 Nasal Cannula 3.00 10/25/16 04:00 Room Air 10/25/16 00:00 98.9 104 18 107/58 (74) 10/25/16 00:00 Room Air 10/24/16 21:42 94 Nasal Cannula 3.00 10/24/16 20:00 Room Air 10/24/16 20:00 98.6 104 18 122/74 (90) 94 10/24/16 19:18 103 10/24/16 16:00 97.8 106 20 127/73 (91) 94 I/O 10/24/16 10/24/16 10/24/16 10/25/16 10/25/16 10/25/16 07:00 15:00 23:00 07:00 15:00 23:00 Intake Total 240 ml 480 ml Output Total 200 ml 1000 ml 275 ml Balance 40 ml -520 ml -275 ml Intake Oral 240 ml 480 ml Output Urine Total 600 ml Stool Total 200 ml 400 ml 275 ml # Voids 2 1 Result Diagram: 10/24/1661910/24/16619 Imaging Last Impressions Cervical Spine MRI 10/21/16 0000 Signed Impressions: Service Date/Time: Friday, October 21, 2016 08:43 - CONCLUSION: 1. Motion degraded exam. 2. No acute abnormality. 3. Mild degenerative disc disease without neural impingement. Jamie Tobin Jr., MD Brain MRI 10/21/16 0000 Signed Impressions: Service Date/Time: Friday, October 21, 2016 08:43 - CONCLUSION: 1. Unchanged nonspecific white matter lesions as detailed above. Differential diagnostic considerations remains quite broad. The 2 most likely etiologies would be a demyelinating process such as multiple sclerosus versus chronic small vessel ischemic change. Jamie Tobin Jr., MD Chest X-Ray 10/13/16 0000 Signed Impressions: Service Date/Time: Thursday, October 13, 2016 19:05 - CONCLUSION: 1. Endotracheal tube tip is approximate 16 mm above the joel. 2. Unchanged nasogastric tube, courses into the stomach. 3. Unchanged mild left base consolidation. Oliver Potter MD Abdomen/Pelvis CT 10/13/16 0000 Signed Impressions: Service Date/Time: Thursday, October 13, 2016 13:13 - CONCLUSION: 1. Pneumoperitoneum likely from the hepatic flexure region of the colon. Pneumatosis was seen in this region on the prior exam. This area now appears thickened. 2. Induration around the pancreas concerning for pancreatitis. 3. New consolidation or atelectasis at the medial left lung base. Oliver Soria MD Abdomen X-Ray 10/12/16 0000 Signed Impressions: Service Date/Time: Wednesday, October 12, 2016 07:42 - CONCLUSION: Nasogastric tube in good position, probably ileus. Rico Boston MD FACR Procedures Endotracheal Intubation and extubation. Expressive Colonoscopy Ileostomy Other Results Laboratory Tests Test 09/25/16 00:00 09/26/16 11:15 10/04/16 08:23 10/05/16 04:49 Nasal Screen MRSA (PCR) MRSA NOT DETECTED Urine Squamous Epithelial Cells <1 /hpf Urine Hyaline Casts 6 /lpf Blood Urea Nitrogen 24 MG/DL Creatinine 0.56 MG/DL Random Glucose 129 MG/DL Total Protein 5.6 GM/DL Albumin 2.5 GM/DL Calcium Level 8.3 MG/DL Phosphorus Level 3.1 MG/DL Magnesium Level 2.7 MG/DL Alkaline Phosphatase 45 U/L Aspartate Amino Transf (AST/SGOT) 41 U/L Alanine Aminotransferase (ALT/SGPT) 74 U/L Total Bilirubin 0.3 MG/DL Direct Bilirubin 0.1 MG/DL Sodium Level 140 MEQ/L Potassium Level 4.0 MEQ/L Chloride Level 100 MEQ/L Carbon Dioxide Level 33.1 MEQ/L Indirect Bilirubin 0.2 MG/DL Thyroid Stimulating Hormone 3rd Gen 0.247 uIU/ML Lactic Acid Level 1.4 mmol/L Total Creatine Kinase 285 U/L Creatine Kinase MB 13.3 NG/ML Creatine Kinase MB % 4.7 % Free Thyroxine 0.74 NG/DL Free Triiodothyronine (T3) pg/dL 0.88 PG/ML Test 10/05/16 12:30 10/05/16 21:00 10/06/16 08:10 10/07/16 05:00 Troponin I 0.04 NG/ML Urine Color YELLOW Urine Turbidity CLEAR Urine pH 5.5 Urine Specific [place] 1.022 Urine Protein TRACE mg/dL Urine Glucose (UA) NEG mg/dL Urine Ketones NEG mg/dL Urine Occult Blood SMALL Urine Nitrite NEG Urine Bilirubin NEG Urine Urobilinogen LESS THAN 2.0 MG/DL Urine Leukocyte Esterase NEG Urine RBC 92 /hpf Urine WBC 3 /hpf Urine Bacteria RARE /hpf Urine Mucus FEW /lpf Microscopic Urinalysis Comment CATH-CULTURE IND Nucleated Red Blood Cells 1 /100 WBC Stool C. difficile Toxin (PCR) NEGATIVE Stl C. difficile Toxin Epiderm 027 PRESUMPTIVE NEGATIVE Test 10/09/16 05:45 10/11/16 08:59 10/13/16 14:30 10/13/16 20:04 Promyelocytes 1 % Toxic Vacuolation PRESENT Metamyelocytes 2 % Prothrombin Time 9.9 SEC Prothromb Time International Ratio 0.9 RATIO Blood Gas Puncture Site ART LINE Blood Gas Patient Temperature 98.6 Blood Gas HCO3 21 mmol/L Blood Gas Base Excess -3.0 mmol/L Blood Gas Oxygen Saturation 97 % Arterial Blood pH 7.40 Arterial Blood Partial Pressure CO2 35 mmHg Arterial Blood Partial Pressure O2 173 mmHg Arterial Blood Oxygen Content 16.7 Vol % Arterial Blood Carboxyhemoglobin 1.4 % Arterial Blood Methemoglobin 1.2 % Blood Gas Hemoglobin 12.0 G/DL Oxygen Delivery Device VENTILATOR Blood Gas Ventilator Setting AC/10/500/PEEP8 Blood Gas Inspired Oxygen 70 % Test 10/14/16 04:45 10/15/16 05:10 10/17/16 11:50 10/18/16 04:38 Blood Urea Nitrogen 21 MG/DL 18 MG/DL Creatinine 0.29 MG/DL 0.31 MG/DL Random Glucose 113 MG/DL 83 MG/DL Total Protein 5.1 GM/DL 6.6 GM/DL Albumin 1.9 GM/DL 3.4 GM/DL Calcium Level 7.6 MG/DL 9.0 MG/DL Phosphorus Level 2.5 MG/DL Magnesium Level 2.1 MG/DL Alkaline Phosphatase 64 U/L 74 U/L Aspartate Amino Transf (AST/SGOT) 142 U/L 47 U/L Alanine Aminotransferase (ALT/SGPT) 362 U/L 207 U/L Total Bilirubin 0.7 MG/DL 0.8 MG/DL Sodium Level 137 MEQ/L 136 MEQ/L Potassium Level 4.4 MEQ/L 3.2 MEQ/L Chloride Level 105 MEQ/L 101 MEQ/L Carbon Dioxide Level 26.4 MEQ/L 24.2 MEQ/L Amylase Level 95 U/L Lipase 315 U/L Vancomycin Level Trough 9.1 MCG/ML Red Cell Morphology Comment NORMAL Neutrophils (%) (Auto) 83.3 % Lymphocytes (%) (Auto) 9.0 % Monocytes (%) (Auto) 6.4 % Eosinophils (%) (Auto) 1.2 % Basophils (%) (Auto) 0.1 % Neutrophils # (Auto) 11.7 TH/MM3 Lymphocytes # (Auto) 1.3 TH/MM3 Monocytes # (Auto) 0.9 TH/MM3 Eosinophils # (Auto) 0.2 TH/MM3 Basophils # (Auto) 0.0 TH/MM3 CBC Comment AUTO DIFF Differential Total Cells Counted 100 Neutrophils % (Manual) 76 % Band Neutrophils % 7 % Lymphocytes % 7 % Monocytes % 8 % Neutrophils # (Manual) 12.0 TH/MM3 Myelocytes 2 % Differential Comment FINAL DIFF MANUAL Platelet Estimate NORMAL Platelet Morphology Comment NORMAL Test 10/19/16 09:05 10/24/16 06:20 Vitamin B12 Level 621 PG/ML White Blood Count 10.4 TH/MM3 Red Blood Count 4.01 MIL/MM3 Hemoglobin 12.2 GM/DL Hematocrit 35.8 % Mean Corpuscular Volume 89.4 FL Mean Corpuscular Hemoglobin 30.5 PG Mean Corpuscular Hemoglobin Concent 34.1 % Red Cell Distribution Width 13.3 % Platelet Count 217 TH/MM3 Mean Platelet Volume 8.4 FL Blood Urea Nitrogen 8 MG/DL Creatinine 0.23 MG/DL Random Glucose 91 MG/DL Calcium Level 9.2 MG/DL Sodium Level 133 MEQ/L Potassium Level 3.8 MEQ/L Chloride Level 100 MEQ/L Carbon Dioxide Level 23.5 MEQ/L Anion Gap 10 MEQ/L Estimat Glomerular Filtration Rate 313 ML/MIN Objective Remarks GENERAL: NAD, A&Ox3 HEAD: Normocephalic. NG tube is in place. NECK: Supple, trachea midline. No lymphadenopathy. EYES: No scleral icterus. No injection or drainage. CARDIOVASCULAR: Regular rate and rhythm without murmurs, gallops, or rubs. RESPIRATORY: Breath sounds equal bilaterally. No accessory muscle use. GASTROINTESTINAL: Abdomen soft, non-tender, nondistended. MUSCULOSKELETAL: No cyanosis, or edema. SKIN: Warm and dry. NEURO: Global weakness, weakness of upper and lower extremities greater in the upper extremities, numbness in lower extremities. Medications and IVs Current Medications Medications (Trade) Dose Ordered Sig/Amadou Route Start Time Stop Time Status Last Admin (NS Flush) 2 ml UNSCH PRN IV FLUSH 09/25/16 06:15 10/24/16 03:08 (NS Flush) 2 ml BID IV FLUSH 09/25/16 09:00 10/25/16 08:55 (Narcan Inj) 0.4 mg UNSCH PRN IV 09/25/16 06:15 (Lopressor) 50 mg BID PO 09/25/16 09:00 Future Hold 09/25/16 19:41 (Prinivil) 10 mg DAILY PO 09/25/16 09:00 Future Hold 09/25/16 08:32 (Hydrodiuril) 12.5 mg DAILY PO 09/25/16 09:00 Future Hold 09/25/16 08:32 (Pulmicort Respule Neb) 0.5 mg Q12HR NEB NEB 09/25/16 12:45 10/25/16 07:52 (Spiriva Inh) 18 mcg DAILY INH 09/25/16 12:45 10/25/16 08:55 (Haldol Inj) 5 mg Q6H PRN IV PUSH 09/26/16 10:15 10/10/16 22:46 (Ativan Inj) 1 mg Q4H PRN IV PUSH 09/26/16 15:00 10/25/16 06:38 (Cardizem) 60 mg Q6H PO 09/29/16 14:00 10/25/16 08:54 (Reglan Inj) 10 mg Q8HR IV PUSH 10/01/16 09:00 Future Hold 10/13/16 06:23 (Peridex 0.12% Liq) 15 ml BID@08,20 MT 10/03/16 20:00 10/23/16 07:31 (Apresoline Inj) 10 mg Q1HR PRN IV PUSH 10/04/16 16:00 10/13/16 07:52 (Trandate Inj) 10 mg Q1HR PRN IV PUSH 10/04/16 16:00 (Vasotec Inj) 1.25 mg Q6H PRN IV PUSH 10/04/16 16:00 (Apresoline) 50 mg Q8HR PO 10/13/16 14:00 10/25/16 05:23 (Morphine Inj) 1 mg Q4H PRN IV PUSH 10/13/16 11:15 10/25/16 08:56 (Zofran Inj) 4 mg Q6H PRN IV PUSH 10/13/16 11:15 10/22/16 05:09 (Beneprotein Powder) 1 pack TID G-TUBE 10/14/16 13:00 10/22/16 15:15 (Protonix) 20 mg DAILY PO 10/18/16 09:00 10/25/16 08:54 (KCl) 20 meq Q12HR PO 10/20/16 09:00 10/25/16 08:54 (Neurontin) 100 mg TID PO 10/20/16 18:00 10/25/16 08:54 (Lovenox Inj) 40 mg Q24H SQ 10/22/16 20:00 10/24/16 20:43 (Symbicort 160-4.5 Inh) 1 puff Q12HR INH 10/23/16 21:00 10/25/16 08:55 (Duoneb Neb) 1 ampule Q2HR NEB PRN NEB 10/23/16 15:30 10/25/16 07:53 A/P Assessment and Plan 56-year-old female admitted secondary to respiratory distress and COPD and pneumonia. GI complications, now status post ileostomy. Continue physical therapy. C-spine MRI is within normal limits. MRI of brain shows abnormal findings which are not specific (scattered white matter lesions, multiple sclerosis versus ischemic changes). Symbicort albuterol resumed. Continue to follow patient's neuro status. Paraplegia of unknown etiology Critical Illness Polyneuropathy as per Neurology specialist, secondary to Bedridden Status plus steroids plus infection MRI brain do not think in MS or cord compression, recommended EMG limbs by Rehab Medicine but she is improving. Continue PT, Gabapentin for Paresthesias, Limit Steroid use and repeat MRI in 2 to 3 months. Acute hypercarbic respiratory failure COPD exacerbation HCAP, LLL infiltrate Bronchospasms extubated 10/10 Continue Pulmonary following, bronchodilator, Mucolytic and Incentive spirometry. Zosyn. Oxygen as needed Colonic ileus Status post ileostomy placed 10/13/16 Chronic hemorrhoids Regular diet for now Levaquin and Flagyl until today 10/24/16 as per ID specialist. Leukocytosis May be secondary to steroids Improving History of tobacco abuse Currently weaned off all nicotine, Strongly recommended to stop smoking. Hypertension. Controlled. Hyperglycemia Stabilized Stop Following blood sugars as closely Global deconditioning Approximately 22 days in ICU much of which was on a ventilator Start physical therapy Start Occupational therapy DVT prophylaxis SCDs Discharge Planning Expected by Tomorrow Home with [facility] the patient refuse going to Rehab. Raciel Dorman MD Oct 25, 2016 12:17
--- NOTE | 2016-10-25 15:46 | HHI.PR ---
Subjective Remarks 56 YOWF with VDRF, , extubated 10/10 no Fever Tolerates PO Feels weak Appetite good No new complaint Objective Vital Signs Vital Signs Date Time Temp Pulse Resp B/P (MAP) Pulse Ox O2 Delivery O2 Flow Rate FiO2 10/25/16 14:30 18 10/25/16 08:50 98 10/25/16 08:50 Room Air 10/25/16 08:00 97.5 100 20 114/63 (80) 94 10/25/16 07:56 96 Nasal Cannula 3.00 10/25/16 04:00 Room Air 10/25/16 00:00 98.9 104 18 107/58 (74) 10/25/16 00:00 Room Air 10/24/16 21:42 94 Nasal Cannula 3.00 10/24/16 20:00 Room Air 10/24/16 20:00 98.6 104 18 122/74 (90) 94 10/24/16 19:18 103 10/24/16 16:00 97.8 106 20 127/73 (91) 94 I/O 10/24/16 10/24/16 10/24/16 10/25/16 10/25/16 10/25/16 07:00 15:00 23:00 07:00 15:00 23:00 Intake Total 240 ml 480 ml Output Total 200 ml 1000 ml 275 ml Balance 40 ml -520 ml -275 ml Intake Oral 240 ml 480 ml Output Urine Total 600 ml Stool Total 200 ml 400 ml 275 ml # Voids 2 1 Result Diagram: 10/24/1620 10/24/16 0620 Objective Remarks GENERAL: MBMN WF, on Vent SKIN: Warm and dry. HEAD: Normocephalic. EYES: No scleral icterus. No injection or drainage. NECK: Supple, trachea midline. No JVD or lymphadenopathy. CARDIOVASCULAR: Regular rate and rhythm without murmurs, gallops, or rubs. RESPIRATORY: Breath sounds equal bilaterally. No accessory muscle use. GASTROINTESTINAL: Abdomen soft, non-tender, nondistended. Ileostomy MUSCULOSKELETAL: No cyanosis, or edema. BACK: Nontender without obvious deformity. No CVA tenderness. A/P Assessment and Plan VDRF, s/p extubation 10/10 COPD Exac HTN Nicotine use S/p Exp Lap, ileostomy PLAN Abx per ID Duonebs qid Encourage PO. Physical therapy. Stable from pulm standpoint Abdirahman Marquez MD Oct 25, 2016 15:46
[2016-10-25] MEDS: ENOXAPARIN SODIUM 40 MG/0.4 ML SYRINGE SQ SCH (21:15)
[2016-10-26] VITALS (8 sets, daily range): BP systolic 101–125; BP diastolic 58–75; PULSE 84–98; RESP 18–20; TEMP 97.3–98.9; O2SAT 93–95
[2016-10-26] MEDS: DILTIAZEM HCL 60 MG TAB PO SCH ×4 (01:57→21:13)
[2016-10-26] MEDS: LORazepam 2 MG/ML VIAL IV PUSH PRN ×5 (01:58→23:23)
[2016-10-26] MEDS: MORPHINE SULFATE 4 MG/ML INJ IV PUSH PRN ×4 (03:14→21:12)
[2016-10-26] MEDS: hydrALAZINE HCL 50 MG TAB PO SCH ×3 (06:01→21:12)
[2016-10-26] MEDS: CHLORHEXIDINE 0.12% (ORAL KIT) 15 ML CUP MT SCH ×2 (08:00→20:00)
[2016-10-26] MEDS: TIOTROPIUM BROMIDE 18 MCG INH INH SCH (09:00)
[2016-10-26] MEDS: BENEPROTEIN POWDER 1 PACK G-TUBE SCH ×3 (09:00→18:00)
[2016-10-26] MEDS: GABAPENTIN 100 MG CAP PO SCH ×3 (09:28→18:12)
[2016-10-26] MEDS: PANTOPRAZOLE SOD 20 MG DELAYED RELEASE TAB PO SCH (09:28)
[2016-10-26] MEDS: POTASSIUM CHLORIDE 20 MEQ CONTROLLED RELEASE TAB PO SCH ×2 (09:28→21:12)
[2016-10-26] MEDS: SODIUM CHLORIDE 0.9% FLUSH 10 ML FLUSH IV FLUSH SCH ×2 (09:30→21:14)
[2016-10-26] MEDS: RESP: BUDESONIDE 0.5 MG/2 ML NEB NEB SCH ×2 (09:30→17:07)
[2016-10-26] MEDS: BUDESONIDE-FORMOTEROL 160/4.5 MCG INHALER INH SCH ×2 (09:31→21:14)
--- NOTE | 2016-10-26 11:14 | HHI.PR ---
Subjective Remarks 10/26: Seen in her bedroom in the presence of her boyfriend Mr. Poncho Aceves he states will help the patient to be able to ambulate, until now her Physical Therapy, as per [employer] words she will need to be able to walk before she may be discharged. no nausea, vomit or diarrhea. Objective Vital Signs Date Time Temp Pulse Resp B/P (MAP) Pulse Ox O2 Delivery O2 Flow Rate FiO2 10/26/16 09:30 95 21 10/26/16 08:00 97.4 86 18 105/58 (74) 95 10/26/16 04:00 Room Air 10/26/16 04:00 97.3 84 20 101/58 (72) 93 10/26/16 00:00 98.9 91 18 119/70 (86) 95 10/26/16 00:00 Room Air 10/25/16 20:02 102 10/25/16 20:00 Room Air 10/25/16 20:00 97.8 99 18 111/61 (78) 95 10/25/16 19:50 94 21 10/25/16 16:00 97.8 101 20 115/70 (85) 96 10/25/16 14:30 18 10/25/16 12:00 97.4 90 20 105/59 (74) 93 I/O 10/25/16 10/25/16 10/25/16 10/26/16 10/26/16 10/26/16 07:00 15:00 23:00 07:00 15:00 23:00 Intake Total 420 ml 240 ml Output Total 275 ml 300 ml Balance -275 ml 420 ml -60 ml Intake Oral 420 ml 240 ml Output Urine Total 300 ml Stool Total 275 ml # Voids 3 # Bowel Movements 0 1 Result Diagram: 10/24/1620 10/24/16 0620 Imaging Last Impressions Cervical Spine MRI 10/21/16 0000 Signed Impressions: Service Date/Time: Friday, October 21, 2016 08:43 - CONCLUSION: 1. Motion degraded exam. 2. No acute abnormality. 3. Mild degenerative disc disease without neural impingement. Jamie Tobin Jr., MD Brain MRI 10/21/16 0000 Signed Impressions: Service Date/Time: Friday, October 21, 2016 08:43 - CONCLUSION: 1. Unchanged nonspecific white matter lesions as detailed above. Differential diagnostic considerations remains quite broad. The 2 most likely etiologies would be a demyelinating process such as multiple sclerosus versus chronic small vessel ischemic change. Jamie Tobin Jr., MD Chest X-Ray 10/13/16 0000 Signed Impressions: Service Date/Time: Thursday, October 13, 2016 19:05 - CONCLUSION: 1. Endotracheal tube tip is approximate 16 mm above the joel. 2. Unchanged nasogastric tube, courses into the stomach. 3. Unchanged mild left base consolidation. Oliver Potter MD Abdomen/Pelvis CT 10/13/16 0000 Signed Impressions: Service Date/Time: Thursday, October 13, 2016 13:13 - CONCLUSION: 1. Pneumoperitoneum likely from the hepatic flexure region of the colon. Pneumatosis was seen in this region on the prior exam. This area now appears thickened. 2. Induration around the pancreas concerning for pancreatitis. 3. New consolidation or atelectasis at the medial left lung base. Oliver Soria MD Abdomen X-Ray 10/12/16 0000 Signed Impressions: Service Date/Time: Wednesday, October 12, 2016 07:42 - CONCLUSION: Nasogastric tube in good position, probably ileus. Rico Boston MD FACR Procedures Endotracheal Intubation and extubation. Expressive Colonoscopy Ileostomy Other Results Laboratory Tests Test 09/25/16 00:00 09/26/16 11:15 10/04/16 08:23 10/05/16 04:49 Nasal Screen MRSA (PCR) MRSA NOT DETECTED Urine Squamous Epithelial Cells <1 /hpf Urine Hyaline Casts 6 /lpf Blood Urea Nitrogen 24 MG/DL Creatinine 0.56 MG/DL Random Glucose 129 MG/DL Total Protein 5.6 GM/DL Albumin 2.5 GM/DL Calcium Level 8.3 MG/DL Phosphorus Level 3.1 MG/DL Magnesium Level 2.7 MG/DL Alkaline Phosphatase 45 U/L Aspartate Amino Transf (AST/SGOT) 41 U/L Alanine Aminotransferase (ALT/SGPT) 74 U/L Total Bilirubin 0.3 MG/DL Direct Bilirubin 0.1 MG/DL Sodium Level 140 MEQ/L Potassium Level 4.0 MEQ/L Chloride Level 100 MEQ/L Carbon Dioxide Level 33.1 MEQ/L Indirect Bilirubin 0.2 MG/DL Thyroid Stimulating Hormone 3rd Gen 0.247 uIU/ML Lactic Acid Level 1.4 mmol/L Total Creatine Kinase 285 U/L Creatine Kinase MB 13.3 NG/ML Creatine Kinase MB % 4.7 % Free Thyroxine 0.74 NG/DL Free Triiodothyronine (T3) pg/dL 0.88 PG/ML Test 10/05/16 12:30 10/05/16 21:00 10/06/16 08:10 10/07/16 05:00 Troponin I 0.04 NG/ML Urine Color YELLOW Urine Turbidity CLEAR Urine pH 5.5 Urine Specific [place] 1.022 Urine Protein TRACE mg/dL Urine Glucose (UA) NEG mg/dL Urine Ketones NEG mg/dL Urine Occult Blood SMALL Urine Nitrite NEG Urine Bilirubin NEG Urine Urobilinogen LESS THAN 2.0 MG/DL Urine Leukocyte Esterase NEG Urine RBC 92 /hpf Urine WBC 3 /hpf Urine Bacteria RARE /hpf Urine Mucus FEW /lpf Microscopic Urinalysis Comment CATH-CULTURE IND Nucleated Red Blood Cells 1 /100 WBC Stool C. difficile Toxin (PCR) NEGATIVE Stl C. difficile Toxin Epiderm 027 PRESUMPTIVE NEGATIVE Test 10/09/16 05:45 10/11/16 08:59 10/13/16 14:30 10/13/16 20:04 Promyelocytes 1 % Toxic Vacuolation PRESENT Metamyelocytes 2 % Prothrombin Time 9.9 SEC Prothromb Time International Ratio 0.9 RATIO Blood Gas Puncture Site ART LINE Blood Gas Patient Temperature 98.6 Blood Gas HCO3 21 mmol/L Blood Gas Base Excess -3.0 mmol/L Blood Gas Oxygen Saturation 97 % Arterial Blood pH 7.40 Arterial Blood Partial Pressure CO2 35 mmHg Arterial Blood Partial Pressure O2 173 mmHg Arterial Blood Oxygen Content 16.7 Vol % Arterial Blood Carboxyhemoglobin 1.4 % Arterial Blood Methemoglobin 1.2 % Blood Gas Hemoglobin 12.0 G/DL Oxygen Delivery Device VENTILATOR Blood Gas Ventilator Setting AC/10/500/PEEP8 Blood Gas Inspired Oxygen 70 % Test 10/14/16 04:45 10/15/16 05:10 10/17/16 11:50 10/18/16 04:38 Blood Urea Nitrogen 21 MG/DL 18 MG/DL Creatinine 0.29 MG/DL 0.31 MG/DL Random Glucose 113 MG/DL 83 MG/DL Total Protein 5.1 GM/DL 6.6 GM/DL Albumin 1.9 GM/DL 3.4 GM/DL Calcium Level 7.6 MG/DL 9.0 MG/DL Phosphorus Level 2.5 MG/DL Magnesium Level 2.1 MG/DL Alkaline Phosphatase 64 U/L 74 U/L Aspartate Amino Transf (AST/SGOT) 142 U/L 47 U/L Alanine Aminotransferase (ALT/SGPT) 362 U/L 207 U/L Total Bilirubin 0.7 MG/DL 0.8 MG/DL Sodium Level 137 MEQ/L 136 MEQ/L Potassium Level 4.4 MEQ/L 3.2 MEQ/L Chloride Level 105 MEQ/L 101 MEQ/L Carbon Dioxide Level 26.4 MEQ/L 24.2 MEQ/L Amylase Level 95 U/L Lipase 315 U/L Vancomycin Level Trough 9.1 MCG/ML Red Cell Morphology Comment NORMAL Neutrophils (%) (Auto) 83.3 % Lymphocytes (%) (Auto) 9.0 % Monocytes (%) (Auto) 6.4 % Eosinophils (%) (Auto) 1.2 % Basophils (%) (Auto) 0.1 % Neutrophils # (Auto) 11.7 TH/MM3 Lymphocytes # (Auto) 1.3 TH/MM3 Monocytes # (Auto) 0.9 TH/MM3 Eosinophils # (Auto) 0.2 TH/MM3 Basophils # (Auto) 0.0 TH/MM3 CBC Comment AUTO DIFF Differential Total Cells Counted 100 Neutrophils % (Manual) 76 % Band Neutrophils % 7 % Lymphocytes % 7 % Monocytes % 8 % Neutrophils # (Manual) 12.0 TH/MM3 Myelocytes 2 % Differential Comment FINAL DIFF MANUAL Platelet Estimate NORMAL Platelet Morphology Comment NORMAL Test 10/19/16 09:05 10/24/16 06:20 Vitamin B12 Level 621 PG/ML White Blood Count 10.4 TH/MM3 Red Blood Count 4.01 MIL/MM3 Hemoglobin 12.2 GM/DL Hematocrit 35.8 % Mean Corpuscular Volume 89.4 FL Mean Corpuscular Hemoglobin 30.5 PG Mean Corpuscular Hemoglobin Concent 34.1 % Red Cell Distribution Width 13.3 % Platelet Count 217 TH/MM3 Mean Platelet Volume 8.4 FL Blood Urea Nitrogen 8 MG/DL Creatinine 0.23 MG/DL Random Glucose 91 MG/DL Calcium Level 9.2 MG/DL Sodium Level 133 MEQ/L Potassium Level 3.8 MEQ/L Chloride Level 100 MEQ/L Carbon Dioxide Level 23.5 MEQ/L Anion Gap 10 MEQ/L Estimat Glomerular Filtration Rate 313 ML/MIN Objective Remarks GENERAL: NAD, A&Ox3 HEAD: Normocephalic. NECK: Supple, trachea midline. No lymphadenopathy. EYES: No scleral icterus. No injection or drainage. CARDIOVASCULAR: Regular rate and rhythm without murmurs, gallops, or rubs. RESPIRATORY: Breath sounds equal bilaterally. No accessory muscle use. GASTROINTESTINAL: Abdomen soft, non-tender, nondistended. MUSCULOSKELETAL: No cyanosis, or edema. SKIN: Warm and dry. NEURO: Global weakness, weakness of upper and lower extremities greater in the upper extremities, numbness in lower extremities. Medications and IVs Current Medications Medications (Trade) Dose Ordered Sig/Amadou Route Start Time Stop Time Status Last Admin (NS Flush) 2 ml UNSCH PRN IV FLUSH 09/25/16 06:15 10/24/16 03:08 (NS Flush) 2 ml BID IV FLUSH 09/25/16 09:00 10/26/16 09:30 (Narcan Inj) 0.4 mg UNSCH PRN IV 09/25/16 06:15 (Lopressor) 50 mg BID PO 09/25/16 09:00 Future Hold 09/25/16 19:41 (Prinivil) 10 mg DAILY PO 09/25/16 09:00 Future Hold 09/25/16 08:32 (Hydrodiuril) 12.5 mg DAILY PO 09/25/16 09:00 Future Hold 09/25/16 08:32 (Pulmicort Respule Neb) 0.5 mg Q12HR NEB NEB 09/25/16 12:45 10/26/16 09:30 (Spiriva Inh) 18 mcg DAILY INH 09/25/16 12:45 10/25/16 08:55 (Haldol Inj) 5 mg Q6H PRN IV PUSH 09/26/16 10:15 10/10/16 22:46 (Ativan Inj) 1 mg Q4H PRN IV PUSH 09/26/16 15:00 10/26/16 06:01 (Cardizem) 60 mg Q6H PO 09/29/16 14:00 10/26/16 09:28 (Reglan Inj) 10 mg Q8HR IV PUSH 10/01/16 09:00 Future Hold 10/13/16 06:23 (Peridex 0.12% Liq) 15 ml BID@08,20 MT 10/03/16 20:00 10/23/16 07:31 (Apresoline Inj) 10 mg Q1HR PRN IV PUSH 10/04/16 16:00 10/13/16 07:52 (Trandate Inj) 10 mg Q1HR PRN IV PUSH 10/04/16 16:00 (Vasotec Inj) 1.25 mg Q6H PRN IV PUSH 10/04/16 16:00 (Apresoline) 50 mg Q8HR PO 10/13/16 14:00 10/26/16 06:01 (Morphine Inj) 1 mg Q4H PRN IV PUSH 10/13/16 11:15 10/26/16 09:30 (Zofran Inj) 4 mg Q6H PRN IV PUSH 10/13/16 11:15 10/22/16 05:09 (Beneprotein Powder) 1 pack TID G-TUBE 10/14/16 13:00 10/22/16 15:15 (Protonix) 20 mg DAILY PO 10/18/16 09:00 10/26/16 09:28 (KCl) 20 meq Q12HR PO 10/20/16 09:00 10/26/16 09:28 (Neurontin) 100 mg TID PO 10/20/16 18:00 10/26/16 09:28 (Lovenox Inj) 40 mg Q24H SQ 10/22/16 20:00 10/25/16 21:15 (Symbicort 160-4.5 Inh) 1 puff Q12HR INH 10/23/16 21:00 10/26/16 09:31 (Duoneb Neb) 1 ampule Q2HR NEB PRN NEB 10/23/16 15:30 10/25/16 07:53 A/P Assessment and Plan 56-year-old female admitted secondary to respiratory distress and COPD and pneumonia. GI complications, now status post ileostomy. Continue physical therapy. C-spine MRI is within normal limits. MRI of brain shows abnormal findings which are not specific (scattered white matter lesions, multiple sclerosis versus ischemic changes). Symbicort albuterol resumed. Continue to follow patient's neuro status. Paraplegia of unknown etiology Critical Illness Polyneuropathy as per Neurology specialist, secondary to Bedridden Status plus steroids plus infection MRI brain do not think in MS or cord compression, recommended EMG limbs by Rehab Medicine but she is improving. Continue PT, Gabapentin for Paresthesias, Limit Steroid use and repeat MRI in 2 to 3 months. Acute hypercarbic respiratory failure COPD exacerbation HCAP, LLL infiltrate Bronchospasms extubated 10/10 Continue Pulmonary following, bronchodilator, Mucolytic and Incentive spirometry.was on antibiotics. Oxygen as needed Colonic ileus Status post ileostomy placed 10/13/16 Chronic hemorrhoids Regular diet for now Levaquin and Flagyl until today 10/24/16 as per ID specialist. finished antibiotics. Leukocytosis May be secondary to steroids Improving History of tobacco abuse Currently weaned off all nicotine, Strongly recommended to stop smoking. Hypertension. Controlled. Hyperglycemia Stabilized Stop Following blood sugars as closely Global deconditioning Approximately 22 days in ICU much of which was on a ventilator Start physical therapy Start Occupational therapy Continue improving activity,l will need to start walking for discharge. Encourage activity. DVT prophylaxis SCDs Discussed in the room with Patient and her Boyfriend Mr. Poncho Aceves he is helping her to get more active. Discharge Planning Okay to discharge Raciel Dorman MD Oct 26, 2016 11:14
[2016-10-26] MEDS: RESP: ALBUTEROL 2.5 MG/IPRATROPIUM 0.5 MG NEB (PRN) NEB (12:45)
[2016-10-26] MEDS: ENOXAPARIN SODIUM 40 MG/0.4 ML SYRINGE SQ SCH (21:13)
--- NOTE | 2016-10-26 21:18 | HHI.PR ---
Subjective Remarks 56 YOWF with VDRF, , extubated 10/10 no Fever Tolerates PO Feels weak Appetite good No new complaint BF at BS Objective Vital Signs Vital Signs Date Time Temp Pulse Resp B/P (MAP) Pulse Ox O2 Delivery O2 Flow Rate FiO2 10/26/16 16:00 97.8 92 18 115/66 (82) 95 10/26/16 12:00 97.3 98 18 109/70 (83) 95 10/26/16 10:00 16 10/26/16 09:30 95 21 10/26/16 08:00 86 10/26/16 08:00 96 Room Air 10/26/16 08:00 97.4 86 18 105/58 (74) 95 10/26/16 04:00 Room Air 10/26/16 04:00 97.3 84 20 101/58 (72) 93 10/26/16 00:00 98.9 91 18 119/70 (86) 95 10/26/16 00:00 Room Air I/O 10/25/16 10/25/16 10/25/16 10/26/16 10/26/16 10/26/16 07:00 15:00 23:00 07:00 15:00 23:00 Intake Total 420 ml 240 ml 480 ml Output Total 275 ml 300 ml Balance -275 ml 420 ml -60 ml 480 ml Intake Oral 420 ml 240 ml 480 ml Output Urine Total 300 ml Stool Total 275 ml # Voids 3 1 # Bowel Movements 0 1 0 Result Diagram: 10/24/16 0620 10/24/16 0620 Objective Remarks GENERAL: MBMN WF, on Vent SKIN: Warm and dry. HEAD: Normocephalic. EYES: No scleral icterus. No injection or drainage. NECK: Supple, trachea midline. No JVD or lymphadenopathy. CARDIOVASCULAR: Regular rate and rhythm without murmurs, gallops, or rubs. RESPIRATORY: Breath sounds equal bilaterally. No accessory muscle use. GASTROINTESTINAL: Abdomen soft, non-tender, nondistended. Ileostomy MUSCULOSKELETAL: No cyanosis, or edema. BACK: Nontender without obvious deformity. No CVA tenderness. A/P Assessment and Plan VDRF, s/p extubation 10/10 COPD Exac HTN Nicotine use S/p Exp Lap, ileostomy PLAN Abx per ID Duonebs qid Encourage PO. Physical therapy. Stable from pulm standpoint Abdirahman Marquez MD Oct 26, 2016 21:18
--- NOTE | 2016-10-26 22:46 | HHI.PR ---
Subjective Remarks C/R Surg POD afebrile, VSS PO better UO good stoma funct Slow progr with PT, actually OOB today Objective - Vital Signs Date Time Temp Pulse Resp B/P (MAP) Pulse Ox O2 Delivery O2 Flow Rate FiO2 10/26/16 21:44 97.8 88 18 125/75 (92) 94 10/26/16 09:30 21 10/26/16 08:00 Room Air 10/25/16 07:56 3.00 Result Diagram: 10/24/1661910/24/16 0620 Objective Remarks PE Abd - lg, soft, mild tympany, wound clean - intact A/P Assessment and Plan Imp: radha diet PT incr, barely OOB, try walking DC plans for rehab - hard due to insurance coverage Victor Manuel Yo MD Oct 26, 2016 22:46
[2016-10-27] VITALS (8 sets, daily range): BP systolic 103–129; BP diastolic 56–81; PULSE 83–94; RESP 18–20; TEMP 97.4–98.3; O2SAT 92–96
[2016-10-27] MEDS: DILTIAZEM HCL 60 MG TAB PO SCH ×4 (01:19→20:39)
[2016-10-27] MEDS: MORPHINE SULFATE 4 MG/ML INJ IV PUSH PRN ×5 (01:20→20:48)
[2016-10-27] MEDS: LORazepam 2 MG/ML VIAL IV PUSH PRN ×4 (03:17→23:31)
[2016-10-27] MEDS: hydrALAZINE HCL 50 MG TAB PO SCH ×3 (05:24→20:39)
[2016-10-27] MEDS: RESP: BUDESONIDE 0.5 MG/2 ML NEB NEB SCH ×2 (07:44→19:04)
[2016-10-27] MEDS: CHLORHEXIDINE 0.12% (ORAL KIT) 15 ML CUP MT SCH ×2 (08:00→20:00)
[2016-10-27] MEDS: BENEPROTEIN POWDER 1 PACK G-TUBE SCH ×3 (09:00→18:00)
[2016-10-27] MEDS: GABAPENTIN 100 MG CAP PO SCH ×3 (09:26→18:55)
[2016-10-27] MEDS: POTASSIUM CHLORIDE 20 MEQ CONTROLLED RELEASE TAB PO SCH ×2 (09:26→20:39)
[2016-10-27] MEDS: PANTOPRAZOLE SOD 20 MG DELAYED RELEASE TAB PO SCH (09:26)
[2016-10-27] MEDS: SODIUM CHLORIDE 0.9% FLUSH 10 ML FLUSH IV FLUSH SCH ×2 (09:30→20:39)
[2016-10-27] MEDS: BUDESONIDE-FORMOTEROL 160/4.5 MCG INHALER INH SCH ×2 (09:30→20:40)
[2016-10-27] MEDS: TIOTROPIUM BROMIDE 18 MCG INH INH SCH (09:30)
--- NOTE | 2016-10-27 12:09 | HHI.PR ---
Subjective Remarks Follow up on patient with respiratory distress, COPD, PNA, colonic ileus s/p ileostomy and critical illness polyneuropathy. Patient seen and examined today. Patient states she feels well. Does report one episode of cough with brownish sputum production. Denies any fever or chills. Denies any chest pain or SOB. Denies any N/V or abdominal pain. She is requesting to have her diet advanced so she can eat lettuce. Discussed with nursing staff - no acute medical issues. Objective Vitals Vital Signs Date Time Temp Pulse Resp B/P (MAP) Pulse Ox O2 Delivery O2 Flow Rate FiO2 10/27/16 08:00 97.4 83 20 103/56 (72) 95 10/27/16 07:46 92 10/27/16 06:17 98.0 89 18 129/81 (97) 96 10/27/16 04:00 Room Air 10/27/16 01:13 98.0 90 18 129/81 (97) 96 10/27/16 00:00 Room Air 10/26/16 21:44 97.8 88 18 125/75 (92) 94 10/26/16 20:09 93 10/26/16 20:00 Room Air 10/26/16 16:00 97.8 92 18 115/66 (82) 95 10/26/16 12:00 97.3 98 18 109/70 (83) 95 I/O 10/26/16 10/26/16 10/26/16 10/27/16 10/27/16 10/27/16 07:00 15:00 23:00 07:00 15:00 23:00 Intake Total 240 ml 480 ml 550 ml 480 ml Output Total 300 ml 220 ml 700 ml Balance -60 ml 480 ml 330 ml -220 ml Intake Oral 240 ml 480 ml 550 ml 480 ml Output Urine Total 300 ml 700 ml Stool Total 220 ml # Voids 1 4 # Bowel Movements 1 0 Result Diagram: 10/24/1661910/24/16619 Imaging Last Impressions Cervical Spine MRI 10/21/16 0000 Signed Impressions: Service Date/Time: Friday, October 21, 2016 08:43 - CONCLUSION: 1. Motion degraded exam. 2. No acute abnormality. 3. Mild degenerative disc disease without neural impingement. Jamie Tobin Jr., MD Brain MRI 10/21/16 0000 Signed Impressions: Service Date/Time: Friday, October 21, 2016 08:43 - CONCLUSION: 1. Unchanged nonspecific white matter lesions as detailed above. Differential diagnostic considerations remains quite broad. The 2 most likely etiologies would be a demyelinating process such as multiple sclerosus versus chronic small vessel ischemic change. Jamie Tobin Jr., MD Chest X-Ray 10/13/16 0000 Signed Impressions: Service Date/Time: Thursday, October 13, 2016 19:05 - CONCLUSION: 1. Endotracheal tube tip is approximate 16 mm above the joel. 2. Unchanged nasogastric tube, courses into the stomach. 3. Unchanged mild left base consolidation. Oliver Potter MD Abdomen/Pelvis CT 10/13/16 0000 Signed Impressions: Service Date/Time: Thursday, October 13, 2016 13:13 - CONCLUSION: 1. Pneumoperitoneum likely from the hepatic flexure region of the colon. Pneumatosis was seen in this region on the prior exam. This area now appears thickened. 2. Induration around the pancreas concerning for pancreatitis. 3. New consolidation or atelectasis at the medial left lung base. Oliver Soria MD Abdomen X-Ray 10/12/16 0000 Signed Impressions: Service Date/Time: Wednesday, October 12, 2016 07:42 - CONCLUSION: Nasogastric tube in good position, probably ileus. Rico Boston MD FACR Objective Remarks GENERAL: Well-nourished, well-developed patient in NAD. Lying in hospital bed. Awake and alert. SKIN: Warm and dry. No rash. HEAD: Normocephalic. Atraumatic. EYES: EOMI. No scleral icterus. No injection or drainage. ENT: No nasal bleeding or discharge. Mucous membranes pink and moist. NECK: Supple. Trachea midline. CARDIOVASCULAR: Regular rate and rhythm. S1, S2 noted. No murmur appreciated. RESPIRATORY: No accessory muscle use. Clear to auscultation. Breath sounds equal bilaterally. GASTROINTESTINAL: Abdomen soft, non-tender, nondistended. Normoactive bowel sounds x4. s/p Ileostomy, stoma pink. MUSCULOSKELETAL: No obvious deformities. Extremities without clubbing, cyanosis , or edema. NEUROLOGICAL: Awake and alert. Global weakness. Weak bilateral lead neurodiagnostic technologist strength L> R. Able to weakly plantar flex BLE. No dorsiflexion appreciated. Normal speech. PSYCHIATRIC: Appropriate mood and affect; insight and judgment normal. Procedures Endotracheal Intubation and extubation. Expressive Colonoscopy Ileostomy Medications and IVs Current Medications Medications (Trade) Dose Ordered Sig/Amadou Route Start Time Stop Time Status Last Admin (NS Flush) 2 ml UNSCH PRN IV FLUSH 09/25/16 06:15 10/24/16 03:08 (NS Flush) 2 ml BID IV FLUSH 09/25/16 09:00 10/27/16 09:30 (Narcan Inj) 0.4 mg UNSCH PRN IV 09/25/16 06:15 (Lopressor) 50 mg BID PO 09/25/16 09:00 Future Hold 09/25/16 19:41 (Prinivil) 10 mg DAILY PO 09/25/16 09:00 Future Hold 09/25/16 08:32 (Hydrodiuril) 12.5 mg DAILY PO 09/25/16 09:00 Future Hold 09/25/16 08:32 (Pulmicort Respule Neb) 0.5 mg Q12HR NEB NEB 09/25/16 12:45 10/27/16 07:44 (Spiriva Inh) 18 mcg DAILY INH 09/25/16 12:45 10/27/16 09:30 (Haldol Inj) 5 mg Q6H PRN IV PUSH 09/26/16 10:15 10/10/16 22:46 (Ativan Inj) 1 mg Q4H PRN IV PUSH 09/26/16 15:00 10/27/16 03:17 (Cardizem) 60 mg Q6H PO 09/29/16 14:00 10/27/16 09:26 (Reglan Inj) 10 mg Q8HR IV PUSH 10/01/16 09:00 Future Hold 10/13/16 06:23 (Peridex 0.12% Liq) 15 ml BID@08,20 MT 10/03/16 20:00 10/23/16 07:31 (Apresoline Inj) 10 mg Q1HR PRN IV PUSH 10/04/16 16:00 10/13/16 07:52 (Trandate Inj) 10 mg Q1HR PRN IV PUSH 10/04/16 16:00 (Vasotec Inj) 1.25 mg Q6H PRN IV PUSH 10/04/16 16:00 (Apresoline) 50 mg Q8HR PO 10/13/16 14:00 10/27/16 05:24 (Morphine Inj) 1 mg Q4H PRN IV PUSH 10/13/16 11:15 10/27/16 09:27 (Zofran Inj) 4 mg Q6H PRN IV PUSH 10/13/16 11:15 10/22/16 05:09 (Beneprotein Powder) 1 pack TID G-TUBE 10/14/16 13:00 10/22/16 15:15 (Protonix) 20 mg DAILY PO 10/18/16 09:00 10/27/16 09:26 (KCl) 20 meq Q12HR PO 10/20/16 09:00 10/27/16 09:26 (Neurontin) 100 mg TID PO 10/20/16 18:00 10/27/16 09:26 (Lovenox Inj) 40 mg Q24H SQ 10/22/16 20:00 10/26/16 21:13 (Symbicort 160-4.5 Inh) 1 puff Q12HR INH 10/23/16 21:00 10/27/16 09:30 (Duoneb Neb) 1 ampule Q2HR NEB PRN NEB 10/23/16 15:30 10/26/16 12:45 A/P Assessment and Plan 56-year-old female admitted secondary to respiratory distress and COPD and pneumonia. GI complications, now status post ileostomy. Continue physical therapy. C-spine MRI is within normal limits. MRI of brain shows abnormal findings which are not specific (scattered white matter lesions, multiple sclerosis versus ischemic changes). Symbicort and albuterol resumed. Continue to follow patient's neuro status. Paraplegia of unknown etiology Critical Illness Polyneuropathy as per Neurology specialist, secondary to bedridden status plus steroids plus infection MRI brain completed and per Neuro, do not think its MS or cord lesion, also less likely MS as no improvement on steroids. EMG/nerve conduction testing c/w critical illness polyneuropathy/myopathy. Continue PT and OT - patient is max assist and unable to go from sit to stand Continue gabapentin for paresthesias Limit Steroid use and repeat MRI in 2 to 3 months. Acute hypercarbic respiratory failure COPD exacerbation. resolved HCAP, LLL infiltrate Bronchospasms extubated 10/10 Pulmonary and ID following - stable from pulm standpoint and ID has signed off Continue bronchodilator, Mucolytic and Incentive spirometry Oxygen as needed Colonic ileus Status post ileostomy placed 10/13/16 Chronic hemorrhoids Regular diet for now - tolerating well. Requesting advance to regular consistency. completed course of Levaquin and Flagyl until 10/24/16 as per ID specialist Leukocytosis May be secondary to steroids intraabdominal process resolved History of tobacco abuse Currently weaned off all nicotine Strongly recommended to stop smoking. Hypertension, controlled continue on Cardizem 60mg q6h and Hydralazine 50mg q8hr Lisinopril and Lopressor on hold due to hypotension Global deconditioning Approximately 22 days in ICU much of which was on a ventilator Continue physical therapy and occupational therapy Patient will need to be able to walk prior to discharge. Patients boyfriend plans to interact during therapy sessions to assist patient following discharge Transaminitis Improving Continue to monitor. AM labs ordered Hyponatremia mild am labs to monitor Low TSH, low free T3 and low free T4 unsure of clinical significance especially in light of normal MRI findings recommend repeat as outpatient in 2 months DVT prophylaxis SCDs Lovenox 40mg sq Discussed with patient, boyfriend, nursing staff and Dr. Morel Discharge Planning Reviewed last CM note 10/26 - patient has no benefits for [facility] or any rehab. Patient is still max assist. She is self pay. Gina Dahl Oct 27, 2016 12:09
[2016-10-27] MEDS: RESP: ALBUTEROL 2.5 MG/IPRATROPIUM 0.5 MG NEB (PRN) NEB (13:39)
--- NOTE | 2016-10-27 15:27 | RADRPT ---
EXAM DATE/TIME: 10/27/2016 14:49 [place] COMPARISON: CHEST SINGLE AP, October 13, 2016, 19:05. INDICATIONS : Cough. MEDICAL HISTORY : Chronic obstructive pulmonary disease. Hypertension SURGICAL HISTORY : None. ENCOUNTER: Initial ACUITY: 4 - 6 days PAIN SCORE: 0/10 LOCATION: Bilateral chest FINDINGS: A single view of the chest demonstrates the lungs to be symmetrically aerated without evidence of mas s, infiltrate or effusion. The cardiomediastinal contours are unremarkable. Osseous structures are intact. CONCLUSION: Normal examination. Jamie Tobin Jr., MD on October 27, 2016 at 15:25 Board Certified Radiologist. This report was verified electronically.
--- NOTE | 2016-10-27 20:05 | HHI.PR ---
Subjective Remarks 56 YOWF with VDRF, , extubated 10/10 no Fever Tolerates PO Feels weak Appetite good No new complaint " I stood up with Therapy" Objective Vital Signs Vital Signs Date Time Temp Pulse Resp B/P (MAP) Pulse Ox O2 Delivery O2 Flow Rate FiO2 10/27/16 19:04 93 21 10/27/16 16:00 97.6 94 20 112/59 (76) 95 10/27/16 12:00 97.8 87 20 106/58 (74) 96 10/27/16 08:00 97.4 83 20 103/56 (72) 95 10/27/16 08:00 85 10/27/16 08:00 96 Room Air 10/27/16 07:46 92 10/27/16 06:17 98.0 89 18 129/81 (97) 96 10/27/16 04:00 Room Air 10/27/16 01:13 98.0 90 18 129/81 (97) 96 10/27/16 00:00 Room Air 10/26/16 21:44 97.8 88 18 125/75 (92) 94 10/26/16 20:09 93 I/O 10/26/16 10/26/16 10/26/16 10/27/16 10/27/16 10/27/16 07:00 15:00 23:00 07:00 15:00 23:00 Intake Total 240 ml 480 ml 550 ml 480 ml 480 ml Output Total 300 ml 220 ml 700 ml 750 ml Balance -60 ml 480 ml 330 ml -220 ml -270 ml Intake Oral 240 ml 480 ml 550 ml 480 ml 480 ml Output Urine Total 300 ml 700 ml 750 ml Stool Total 220 ml # Voids 1 4 # Bowel Movements 1 0 0 Result Diagram: 10/24/1661910/24/16619 Objective Remarks GENERAL: MBMN WF, on Vent SKIN: Warm and dry. HEAD: Normocephalic. EYES: No scleral icterus. No injection or drainage. NECK: Supple, trachea midline. No JVD or lymphadenopathy. CARDIOVASCULAR: Regular rate and rhythm without murmurs, gallops, or rubs. RESPIRATORY: Breath sounds equal bilaterally. No accessory muscle use. GASTROINTESTINAL: Abdomen soft, non-tender, nondistended. Ileostomy MUSCULOSKELETAL: No cyanosis, or edema. BACK: Nontender without obvious deformity. No CVA tenderness. A/P Assessment and Plan VDRF, s/p extubation 10/10 COPD Exac HTN Nicotine use S/p Exp Lap, ileostomy PLAN Abx per LESTER Armstrong qid Encourage PO. Physical therapy. Stable from pulm standpoint Abdirahman Marquez MD Oct 27, 2016 20:05
[2016-10-27] MEDS: ENOXAPARIN SODIUM 40 MG/0.4 ML SYRINGE SQ SCH (20:40)
--- NOTE | 2016-10-27 22:07 | HHI.PR ---
Subjective Remarks C/R Surg POD afebrile, VSS PO better, added fiber stoma funct Slow progr with PT, actually OOB today, Objective - Vital Signs Date Time Temp Pulse Resp B/P (MAP) Pulse Ox O2 Delivery O2 Flow Rate FiO2 10/27/16 20:00 98.3 88 20 112/60 (77) 94 10/27/16 19:04 21 10/27/16 08:00 Room Air 10/25/16 07:56 3.00 Result Diagram: 10/24/1620 10/24/16 0620 Objective Remarks PE Abd - lg, soft, mild tympany, wound clean A/P Assessment and Plan Imp: radha diet PT incr, barely OOB, try walking DC plans for rehab , home Victor Manuel Yo MD Oct 27, 2016 22:07
[2016-10-28] VITALS (8 sets, daily range): BP systolic 102–121; BP diastolic 58–73; PULSE 76–102; RESP 18–20; TEMP 97.2–98.5; O2SAT 94–97
[2016-10-28] MEDS: DILTIAZEM HCL 60 MG TAB PO SCH ×4 (02:00→21:01)
[2016-10-28] MEDS: hydrALAZINE HCL 50 MG TAB PO SCH ×3 (04:31→21:02)
[2016-10-28] MEDS: LORazepam 2 MG/ML VIAL IV PUSH PRN ×2 (04:32→11:06)
[2016-10-28] MEDS: RESP: ALBUTEROL 2.5 MG/IPRATROPIUM 0.5 MG NEB (PRN) NEB ×3 (04:56→13:39)
[2016-10-28] MEDS: CHLORHEXIDINE 0.12% (ORAL KIT) 15 ML CUP MT SCH ×2 (08:00→20:00)
[2016-10-28] MEDS: MORPHINE SULFATE 4 MG/ML INJ IV PUSH PRN (08:25)
[2016-10-28] MEDS: SODIUM CHLORIDE 0.9% FLUSH 10 ML FLUSH IV FLUSH SCH ×2 (08:27→21:03)
[2016-10-28] MEDS: POTASSIUM CHLORIDE 20 MEQ CONTROLLED RELEASE TAB PO SCH ×2 (08:27→21:02)
[2016-10-28] MEDS: PANTOPRAZOLE SOD 20 MG DELAYED RELEASE TAB PO SCH (08:27)
[2016-10-28] MEDS: GABAPENTIN 100 MG CAP PO SCH ×3 (08:27→16:34)
[2016-10-28] MEDS: BENEPROTEIN POWDER 1 PACK G-TUBE SCH ×3 (08:29→16:37)
[2016-10-28] MEDS: TIOTROPIUM BROMIDE 18 MCG INH INH SCH (08:30)
[2016-10-28] MEDS: BUDESONIDE-FORMOTEROL 160/4.5 MCG INHALER INH SCH ×2 (08:32→21:03)
[2016-10-28 08:49] LABS: AUTOMATED NEUTROPHIL # 5.8 TH/MM3 (1.8-7.7); BASOPHIL # 0.1 TH/MM3 (0-0.2); EOSINOPHIL # 0.1 TH/MM3 (0-0.4); EOSINOPHIL % 1.3 % (0.0-4.0); HEMATOCRIT 34.5 % (35.0-46.0); LYMPH % 21.7 % (9.0-44.0); LYMPHOCYTE # 1.9 TH/MM3 (1.0-4.8); MEAN CELL VOLUME 88.5 FL (80.0-100.0); MEAN CORPUSCULAR HEMOGLOBIN 30.1 PG (27.0-34.0); MEAN CORPUSCULAR HGB CONC 34.1 % (32.0-36.0); MONO % 8.4 % (0.0-8.0); NEUT % 67.6 % (16.0-70.0); PLATELET COUNT 295 TH/MM3 (150-450); WHITE BLOOD COUNT 8.6 TH/MM3 (4.0-11.0)
[2016-10-28 09:01] LABS: HEMO FLAGS AUTO DIFF
[2016-10-28] MEDS: RESP: BUDESONIDE 0.5 MG/2 ML NEB NEB SCH ×2 (09:03→19:25)
[2016-10-28 09:17] LABS: ANION GAP 11 MEQ/L (5-15); AST (GOT) 42 U/L (15-37); BICARBONATE 22.3 MEQ/L (21.0-32.0); BLOOD UREA NITROGEN 7 MG/DL (7-18); CHLORIDE 102 MEQ/L (98-107); GLOMERULAR FILTRATION RATE 239 ML/MIN (>89); POTASSIUM 3.9 MEQ/L (3.5-5.1); SODIUM (NA) 135 MEQ/L (136-145)
[2016-10-28 09:18] LABS: ALT (GPT) 98 U/L (10-53)
[2016-10-28 09:21] LABS: ALKALINE PHOSPHATASE 117 U/L (45-117); TOTAL BILIRUBIN ADULT 0.5 MG/DL (0.2-1.0)
[2016-10-28 09:50] LABS: BANDS 15 % (0-6); BASOPHILS 1 % (0-2); EOSINOPHILS 1 % (0-4); METAMYELOCYTES 3 % (0-1); MYELOCYTES 1 % (0-0); NEUTROPHIL # MANUAL DIFF 6.2 TH/MM3 (1.8-7.7); POLYS (SEG NEUTROPHILS) 53 % (16-70); WBC DIFF SAMPLE 100
[2016-10-28 09:51] LABS: PLATELET ESTIMATE SMEAR NORMAL (NORMAL); PLATELET MORPHOLOGY NORMAL (NORMAL); SCAN/DIFF FINAL DIFF MANUAL
[2016-10-28] MEDS ORDERED: ACETAMINOPHEN 325 MG TAB PO PRN (12:15)
--- NOTE | 2016-10-28 13:05 | HHI.PR ---
Subjective Remarks Follow up on patient with respiratory distress, COPD, PNA, colonic ileus s/p ileostomy and critical illness polyneuropathy. Patient seen and examined today. Patient feels her strength is improving. She slept well last night. She complains of 3/10 intermittent substernal nonradiating chest tightness as if she has a girdle around her chest that she has had for many years that is worse after eating and when lying supine. Also reports sense of fullness in chest after meals. She has never had an EGD. She denies any associated N/V, weakness, dizziness, lightheadedness or SOB. Discussed with nursing staff, no acute issues overnight. Objective Vitals Vital Signs Date Time Temp Pulse Resp B/P (MAP) Pulse Ox O2 Delivery O2 Flow Rate FiO2 10/28/16 09:03 95 10/28/16 08:00 97.8 85 20 121/73 (89) 96 10/28/16 04:00 98.2 87 20 102/61 (75) 94 10/28/16 00:00 Room Air 10/28/16 00:00 98.5 76 18 102/60 (74) 95 10/27/16 20:00 Room Air 10/27/16 20:00 98.3 88 20 112/60 (77) 94 10/27/16 20:00 85 10/27/16 19:04 93 21 10/27/16 16:00 97.6 94 20 112/59 (76) 95 I/O 10/27/16 10/27/16 10/27/16 10/28/16 10/28/16 10/28/16 07:00 15:00 23:00 07:00 15:00 23:00 Intake Total 480 ml 480 ml 480 ml Output Total 700 ml 750 ml 300 ml Balance -220 ml -270 ml 180 ml Intake Oral 480 ml 480 ml 480 ml Output Urine Total 700 ml 750 ml Stool Total 300 ml # Voids 4 3 # Bowel Movements 0 Result Diagram: 10/28/1681410/28/16814 Imaging Last Impressions Chest X-Ray 10/27/16 0000 Signed Impressions: Service Date/Time: Thursday, October 27, 2016 14:49 - CONCLUSION: Normal examination. Jamie Tobin Jr., MD Cervical Spine MRI 10/21/16 0000 Signed Impressions: Service Date/Time: Friday, October 21, 2016 08:43 - CONCLUSION: 1. Motion degraded exam. 2. No acute abnormality. 3. Mild degenerative disc disease without neural impingement. Jamie Tobin Jr., MD Brain MRI 10/21/16 0000 Signed Impressions: Service Date/Time: Friday, October 21, 2016 08:43 - CONCLUSION: 1. Unchanged nonspecific white matter lesions as detailed above. Differential diagnostic considerations remains quite broad. The 2 most likely etiologies would be a demyelinating process such as multiple sclerosus versus chronic small vessel ischemic change. Jamie Tobin Jr., MD Abdomen/Pelvis CT 10/13/16 0000 Signed Impressions: Service Date/Time: Thursday, October 13, 2016 13:13 - CONCLUSION: 1. Pneumoperitoneum likely from the hepatic flexure region of the colon. Pneumatosis was seen in this region on the prior exam. This area now appears thickened. 2. Induration around the pancreas concerning for pancreatitis. 3. New consolidation or atelectasis at the medial left lung base. Oliver Soria MD Abdomen X-Ray 10/12/16 0000 Signed Impressions: Service Date/Time: Wednesday, October 12, 2016 07:42 - CONCLUSION: Nasogastric tube in good position, probably ileus. Rico Boston MD FACR Objective Remarks GENERAL: Well-nourished, well-developed patient in NAD. Lying in hospital bed. Awake and alert. Appears comfortable. SKIN: Warm and dry. No rash. HEAD: Normocephalic. Atraumatic. EYES: EOMI. No scleral icterus. No injection or drainage. ENT: No nasal bleeding or discharge. Mucous membranes pink and moist. NECK: Supple. Trachea midline. CARDIOVASCULAR: Regular rate and rhythm. S1, S2 noted. No murmur appreciated. RESPIRATORY: No accessory muscle use. Clear to auscultation. Breath sounds equal bilaterally. GASTROINTESTINAL: Abdomen soft, non-tender, nondistended. Normoactive bowel sounds x4. s/p Ileostomy, stoma pink with brown stool in the bag. MUSCULOSKELETAL: No obvious deformities. Extremities without clubbing, cyanosis , or edema. NEUROLOGICAL: Awake and alert. Global weakness. Weak bilateral cook cold meat strength L> R. Able to weakly plantar flex BLE. No dorsiflexion appreciated. Normal speech. PSYCHIATRIC: Appropriate mood and affect; insight and judgment normal. Procedures Endotracheal Intubation and extubation. Expressive Colonoscopy Ileostomy Medications and IVs Current Medications Medications (Trade) Dose Ordered Sig/Amadou Route Start Time Stop Time Status Last Admin (NS Flush) 2 ml UNSCH PRN IV FLUSH 09/25/16 06:15 10/24/16 03:08 (NS Flush) 2 ml BID IV FLUSH 09/25/16 09:00 10/28/16 08:27 (Narcan Inj) 0.4 mg UNSCH PRN IV 09/25/16 06:15 (Lopressor) 50 mg BID PO 09/25/16 09:00 Future Hold 09/25/16 19:41 (Prinivil) 10 mg DAILY PO 09/25/16 09:00 Future Hold 09/25/16 08:32 (Hydrodiuril) 12.5 mg DAILY PO 09/25/16 09:00 Future Hold 09/25/16 08:32 (Pulmicort Respule Neb) 0.5 mg Q12HR NEB NEB 09/25/16 12:45 10/28/16 09:03 (Spiriva Inh) 18 mcg DAILY INH 09/25/16 12:45 10/28/16 08:30 (Cardizem) 60 mg Q6H PO 09/29/16 14:00 10/28/16 08:27 (Reglan Inj) 10 mg Q8HR IV PUSH 10/01/16 09:00 Future Hold 10/13/16 06:23 (Peridex 0.12% Liq) 15 ml BID@08,20 MT 10/03/16 20:00 10/28/16 08:00 (Apresoline Inj) 10 mg Q1HR PRN IV PUSH 10/04/16 16:00 10/13/16 07:52 (Trandate Inj) 10 mg Q1HR PRN IV PUSH 10/04/16 16:00 (Vasotec Inj) 1.25 mg Q6H PRN IV PUSH 10/04/16 16:00 (Apresoline) 50 mg Q8HR PO 10/13/16 14:00 10/27/16 20:39 (Zofran Inj) 4 mg Q6H PRN IV PUSH 10/13/16 11:15 10/22/16 05:09 (Beneprotein Powder) 1 pack TID G-TUBE 10/14/16 13:00 10/22/16 15:15 (Protonix) 20 mg DAILY PO 10/18/16 09:00 10/28/16 08:27 (KCl) 20 meq Q12HR PO 10/20/16 09:00 10/28/16 08:27 (Neurontin) 100 mg TID PO 10/20/16 18:00 10/28/16 08:27 (Lovenox Inj) 40 mg Q24H SQ 10/22/16 20:00 10/27/16 20:40 (Symbicort 160-4.5 Inh) 1 puff Q12HR INH 10/23/16 21:00 10/28/16 08:32 (Duoneb Neb) 1 ampule Q2HR NEB PRN NEB 10/23/16 15:30 10/28/16 09:03 ([place] 5-325 Mg) 1 tab Q4H PRN PO 10/28/16 12:15 UNV (Tylenol) 650 mg Q4H PRN PO 10/28/16 12:15 UNV A/P Assessment and Plan 56-year-old female admitted secondary to respiratory distress and COPD and pneumonia. GI complications, now status post ileostomy. Continue physical therapy. C-spine MRI is within normal limits. MRI of brain shows abnormal findings which are not specific (scattered white matter lesions, multiple sclerosis versus ischemic changes). Symbicort and albuterol resumed. Continue to follow patient's neuro status. Paraplegia of unknown etiology Critical Illness Polyneuropathy as per Neurology specialist, secondary to bedridden status plus steroids plus infection MRI brain completed and per Neuro, do not think its MS or cord lesion, also less likely MS as no improvement on steroids. EMG/nerve conduction testing c/w critical illness polyneuropathy/myopathy. Continue participation with PT and OT - patient is max assist and unable to go from sit to stand. PT plans to use mechanical lift during next session Continue gabapentin for paresthesias Limit Steroid use and repeat MRI in 2 to 3 months. Acute hypercarbic respiratory failure COPD exacerbation. resolved HCAP, LLL infiltrate, resolved Bronchospasms extubated 10/10 Pulmonary and ID following - stable from pulm standpoint and ID has signed off Continue bronchodilators, Mucolytic and Incentive spirometry Continue Duonebs Oxygen as needed Chest tightness, chronic atypical, worse after meals and with lying supine, fullness after meals unlikely of cardiac origin. Suspect GI etiology CXR 10/27 personally reviewed and is normal examination EKG 10/13 personally reviewed and NSR Echo 09/10/15 EF 55-60%, normal wall motion, PA peak pressure 35mm Hg Recommend patient follow up with GI as outpatient for further evaluation Colonic ileus Status post ileostomy placed 10/13/16 Chronic hemorrhoids Regular diet completed course of Levaquin and Flagyl until 10/24/16 as per ID specialist Surgery following History of tobacco abuse Currently weaned off all nicotine Strongly recommended to stop smoking. Hypertension, controlled continue on Cardizem 60mg q6h and Hydralazine 50mg q8hr Lisinopril and Lopressor on hold due to hypotension Global deconditioning Approximately 22 days in ICU much of which was on a ventilator Continue physical therapy and occupational therapy Patient will need to be able to walk prior to discharge Patients boyfriend plans to interact during therapy sessions to assist patient following discharge Transaminitis trending down monitor as indicated Hyponatremia mild, improved monitor as indicated Low TSH, low free T3 and low free T4 unsure of clinical significance especially in light of normal MRI findings recommend repeat as outpatient in 2 months DVT prophylaxis SCDs Lovenox 40mg sq Discussed with patient, nursing staff and Dr. Morel Discharge Planning Reviewed last CM note 10/26 - patient has no benefits for [facility] or any rehab. Patient is still max assist. She is self pay. Gina Dahl Oct 28, 2016 13:05
[2016-10-28] MEDS: ACETAMINOPHEN/HYDROcodone 325 MG/5 MG TAB PO PRN ×2 (14:05→21:02)
--- NOTE | 2016-10-28 14:40 | PD.WCN.NOT ---
Wound Consult Description: Consult placed per Dr Yo for "stoma" Communicated with: Patient Significant other Recommendation: Please empty ileostomy pouch of effluent when 1/2-1/3 full Continue to educate patient on ileostomy when emptying and changing appliance Additional Information: Patient seen on [address] [place] [address] for Ostomy teaching and assessment of ileostomy Ostomy Type: Ileostomy Surgeon: Victor Manuel Yo MD Date of Surgery: Oct 13, 2016 Complete: Education materials, Other (patient instructed to call staff when pouch begins to feel heavy or is in need of emptying/releasing air etc.) Educated patient on: Watching the nurses and Ostomy nurse open pouch, empty pouch of effluent and air , close pouch. Visualize stoma, measure at each appliance change, and assess surrounding skin for irritation or breakdown. Additional information Patient seen during therapy this morning. Appliance on right abdomen was visualized and noted to be new. Patient stated that they just changed the pouch this morning. The barrier was inspected for leaks and noted to be intact. Stoma is noted to be red, round, moist, lumen @9 o'clock, there is no effluent noted to new pouch. Patient states that she has been reminding the staff that she has a stoma and to please check it with repositioning. It was explained to the patient to watch the staff when the pouch is being emptied and if the appliance needs to be changed to have cork pressing machine operator called (if available) for another teaching opportunity. Nell Nur [facility] Oct 28, 2016 14:40
[2016-10-28] MEDS: LORazepam 0.5 MG TAB PO PRN (16:34)
--- NOTE | 2016-10-28 19:26 | HHI.PR ---
Subjective Remarks 56 YOWF with VDRF, , extubated 10/10 no Fever Tolerates PO Feels weak Appetite good Therapy wore me out Objective Vital Signs Vital Signs Date Time Temp Pulse Resp B/P (MAP) Pulse Ox O2 Delivery O2 Flow Rate FiO2 10/28/16 16:00 98.1 102 20 118/66 (83) 96 10/28/16 12:00 97.9 92 20 109/58 (75) 95 10/28/16 09:03 95 10/28/16 08:00 90 10/28/16 08:00 97.8 85 20 121/73 (89) 96 10/28/16 07:15 Room Air 10/28/16 04:00 98.2 87 20 102/61 (75) 94 10/28/16 00:00 Room Air 10/28/16 00:00 98.5 76 18 102/60 (74) 95 10/27/16 20:00 Room Air 10/27/16 20:00 98.3 88 20 112/60 (77) 94 10/27/16 20:00 85 I/O 10/27/16 10/27/16 10/27/16 10/28/16 10/28/16 10/28/16 07:00 15:00 23:00 07:00 15:00 23:00 Intake Total 480 ml 480 ml 480 ml 480 ml Output Total 700 ml 750 ml 300 ml 1000 ml Balance -220 ml -270 ml 180 ml -520 ml Intake Oral 480 ml 480 ml 480 ml 480 ml Output Urine Total 700 ml 750 ml 1000 ml Stool Total 300 ml # Voids 4 3 # Bowel Movements 0 0 Result Diagram: 10/28/1615 10/28/16814 Objective Remarks GENERAL: MBMN WF, on Vent SKIN: Warm and dry. HEAD: Normocephalic. EYES: No scleral icterus. No injection or drainage. NECK: Supple, trachea midline. No JVD or lymphadenopathy. CARDIOVASCULAR: Regular rate and rhythm without murmurs, gallops, or rubs. RESPIRATORY: Breath sounds equal bilaterally. No accessory muscle use. GASTROINTESTINAL: Abdomen soft, non-tender, nondistended. Ileostomy MUSCULOSKELETAL: No cyanosis, or edema. BACK: Nontender without obvious deformity. No CVA tenderness. A/P Assessment and Plan VDRF, s/p extubation 10/10 COPD Exac HTN Nicotine use S/p Exp Lap, ileostomy PLAN Abx per ID Nathaniel qid Encourage PO. Physical therapy. Stable from pulm standpoint Abdirahman Marquez MD Oct 28, 2016 19:26
[2016-10-28] MEDS: ENOXAPARIN SODIUM 40 MG/0.4 ML SYRINGE SQ SCH (21:02)
--- NOTE | 2016-10-28 21:22 | HHI.PR ---
Subjective Remarks C/R Surg POD afebrile, VSS PO better, added fiber/salads stoma funct Slow progr with PT, actually OOB today, Objective - Vital Signs Date Time Temp Pulse Resp B/P (MAP) Pulse Ox O2 Delivery O2 Flow Rate FiO2 10/28/16 19:29 97 10/28/16 16:00 98.1 102 20 118/66 (83) 10/28/16 07:15 Room Air 10/27/16 19:04 21 10/25/16 07:56 3.00 Result Diagram: 10/28/16 0815 10/28/16 0815 Objective Remarks PE Abd - lg, soft, mild tympany, wound clean A/P Assessment and Plan Imp: radha diet PT incr, barely OOB, try walking DC plans for rehab , home soon Victor Manuel Yo MD Oct 28, 2016 21:21
[2016-10-29] VITALS (9 sets, daily range): BP systolic 98–126; BP diastolic 51–72; PULSE 76–92; RESP 18–20; TEMP 97–98.2; O2SAT 94–97
[2016-10-29] MEDS: LORazepam 0.5 MG TAB PO PRN ×3 (00:33→17:12)
[2016-10-29] MEDS: ACETAMINOPHEN/HYDROcodone 325 MG/5 MG TAB PO PRN ×5 (01:56→21:16)
[2016-10-29] MEDS: DILTIAZEM HCL 60 MG TAB PO SCH ×4 (01:56→20:00)
[2016-10-29] MEDS: hydrALAZINE HCL 50 MG TAB PO SCH ×3 (06:00→21:16)
[2016-10-29] MEDS: CHLORHEXIDINE 0.12% (ORAL KIT) 15 ML CUP MT SCH ×2 (08:00→20:00)
[2016-10-29] MEDS: RESP: BUDESONIDE 0.5 MG/2 ML NEB NEB SCH ×2 (08:38→20:36)
[2016-10-29] MEDS: RESP: ALBUTEROL 2.5 MG/IPRATROPIUM 0.5 MG NEB (PRN) NEB ×2 (08:38→20:36)
[2016-10-29] MEDS: POTASSIUM CHLORIDE 20 MEQ CONTROLLED RELEASE TAB PO SCH ×2 (09:00→21:16)
[2016-10-29] MEDS: TIOTROPIUM BROMIDE 18 MCG INH INH SCH (09:00)
[2016-10-29] MEDS: GABAPENTIN 100 MG CAP PO SCH ×3 (09:00→17:12)
[2016-10-29] MEDS: PANTOPRAZOLE SOD 20 MG DELAYED RELEASE TAB PO SCH (09:00)
[2016-10-29] MEDS: BENEPROTEIN POWDER 1 PACK G-TUBE SCH ×3 (09:00→17:14)
[2016-10-29] MEDS: SODIUM CHLORIDE 0.9% FLUSH 10 ML FLUSH IV FLUSH SCH ×2 (09:00→21:00)
[2016-10-29] MEDS: BUDESONIDE-FORMOTEROL 160/4.5 MCG INHALER INH SCH ×2 (09:00→21:00)
--- NOTE | 2016-10-29 09:53 | HHI.PR ---
Subjective Remarks Follow up on patient with respiratory distress, COPD, PNA, colonic ileus s/p ileostomy and critical illness polyneuropathy. Patient seen and examined today. Patient reports an episode of difficulty breathing this morning while she was attempting to feed herself breakfast. She still has significant weakness and was struggling unsuccessfully to feed herself when she became very anxious and short of breath. She denies any episodes of choking, coughing or difficulty with swallowing. She denies any associated chest pain or abdominal pain. Pulse ox 94% on RA. She has since had a breathing treatment and is feeling better. She denies any history of anxiety prior to this hospitalization. She does report she is not sleeping well. Objective Vitals Vital Signs Date Time Temp Pulse Resp B/P (MAP) Pulse Ox O2 Delivery O2 Flow Rate FiO2 10/29/16 08:42 97 10/29/16 08:00 98.2 77 18 110/60 (77) 94 10/29/16 04:00 98.1 81 18 98/51 (67) 95 10/29/16 04:00 Room Air 10/29/16 00:00 Room Air 10/29/16 00:00 98.2 90 20 126/72 (90) 97 10/28/16 20:00 Room Air 10/28/16 20:00 97.2 95 20 120/70 (87) 97 10/28/16 20:00 97 10/28/16 19:29 97 10/28/16 16:00 98.1 102 20 118/66 (83) 96 10/28/16 12:00 97.9 92 20 109/58 (75) 95 I/O 10/28/16 10/28/16 10/28/16 10/29/16 10/29/16 10/29/16 07:00 15:00 23:00 07:00 15:00 23:00 Intake Total 480 ml 480 ml 700 ml Output Total 300 ml 1000 ml Balance 180 ml -520 ml 700 ml Intake Oral 480 ml 480 ml 700 ml Output Urine Total 1000 ml Stool Total 300 ml # Voids 3 2 # Bowel Movements 0 Result Diagram: 10/28/1615 10/28/16 0815 Imaging Last Impressions Chest X-Ray 10/27/16 0000 Signed Impressions: Service Date/Time: Thursday, October 27, 2016 14:49 - CONCLUSION: Normal examination. Jamie Tobin Jr., MD Cervical Spine MRI 10/21/16 0000 Signed Impressions: Service Date/Time: Friday, October 21, 2016 08:43 - CONCLUSION: 1. Motion degraded exam. 2. No acute abnormality. 3. Mild degenerative disc disease without neural impingement. Jamie Tobin Jr., MD Brain MRI 10/21/16 0000 Signed Impressions: Service Date/Time: Friday, October 21, 2016 08:43 - CONCLUSION: 1. Unchanged nonspecific white matter lesions as detailed above. Differential diagnostic considerations remains quite broad. The 2 most likely etiologies would be a demyelinating process such as multiple sclerosus versus chronic small vessel ischemic change. Jamie Tobin Jr., MD Abdomen/Pelvis CT 10/13/16 0000 Signed Impressions: Service Date/Time: Thursday, October 13, 2016 13:13 - CONCLUSION: 1. Pneumoperitoneum likely from the hepatic flexure region of the colon. Pneumatosis was seen in this region on the prior exam. This area now appears thickened. 2. Induration around the pancreas concerning for pancreatitis. 3. New consolidation or atelectasis at the medial left lung base. Oliver Soria MD Abdomen X-Ray 10/12/16 0000 Signed Impressions: Service Date/Time: Wednesday, October 12, 2016 07:42 - CONCLUSION: Nasogastric tube in good position, probably ileus. Rico Boston MD FACR Objective Remarks GENERAL: Well-nourished, well-developed patient in NAD. Sitting up in hospital bed. Awake and alert. Appears anxious. SKIN: Warm and dry. No rash. HEAD: Normocephalic. Atraumatic. EYES: EOMI. No scleral icterus. No injection or drainage. ENT: No nasal bleeding or discharge. Mucous membranes pink and moist. NECK: Supple. Trachea midline. CARDIOVASCULAR: Regular rate and rhythm. S1, S2 noted. No murmur appreciated. RESPIRATORY: No accessory muscle use. Clear to auscultation. Breath sounds equal bilaterally. GASTROINTESTINAL: Abdomen soft, non-tender, nondistended. Normoactive bowel sounds x4. s/p Ileostomy, stoma pink with brown stool in the bag. MUSCULOSKELETAL: No obvious deformities. Extremities without clubbing, cyanosis , or edema. NEUROLOGICAL: Awake and alert. Global weakness. Weak bilateral survey worker strength L> R. Able to weakly plantar flex BLE. No dorsiflexion appreciated. Normal speech. PSYCHIATRIC: Anxious; insight and judgment normal. Procedures Endotracheal Intubation and extubation. Expressive Colonoscopy Ileostomy Medications and IVs Current Medications Medications (Trade) Dose Ordered Sig/Amadou Route Start Time Stop Time Status Last Admin (NS Flush) 2 ml UNSCH PRN IV FLUSH 09/25/16 06:15 10/24/16 03:08 (NS Flush) 2 ml BID IV FLUSH 09/25/16 09:00 10/29/16 09:00 (Narcan Inj) 0.4 mg UNSCH PRN IV 09/25/16 06:15 (Lopressor) 50 mg BID PO 09/25/16 09:00 Future Hold 09/25/16 19:41 (Prinivil) 10 mg DAILY PO 09/25/16 09:00 Future Hold 09/25/16 08:32 (Hydrodiuril) 12.5 mg DAILY PO 09/25/16 09:00 Future Hold 09/25/16 08:32 (Pulmicort Respule Neb) 0.5 mg Q12HR NEB NEB 09/25/16 12:45 10/29/16 08:38 (Spiriva Inh) 18 mcg DAILY INH 09/25/16 12:45 10/29/16 09:00 (Cardizem) 60 mg Q6H PO 09/29/16 14:00 10/29/16 01:56 (Reglan Inj) 10 mg Q8HR IV PUSH 10/01/16 09:00 Future Hold 10/13/16 06:23 (Peridex 0.12% Liq) 15 ml BID@08,20 MT 10/03/16 20:00 10/28/16 08:00 (Apresoline Inj) 10 mg Q1HR PRN IV PUSH 10/04/16 16:00 10/13/16 07:52 (Trandate Inj) 10 mg Q1HR PRN IV PUSH 10/04/16 16:00 (Vasotec Inj) 1.25 mg Q6H PRN IV PUSH 10/04/16 16:00 (Apresoline) 50 mg Q8HR PO 10/13/16 14:00 10/28/16 21:02 (Zofran Inj) 4 mg Q6H PRN IV PUSH 10/13/16 11:15 10/22/16 05:09 (Beneprotein Powder) 1 pack TID G-TUBE 10/14/16 13:00 10/22/16 15:15 (Protonix) 20 mg DAILY PO 10/18/16 09:00 10/29/16 09:00 (KCl) 20 meq Q12HR PO 10/20/16 09:00 10/29/16 09:00 (Neurontin) 100 mg TID PO 10/20/16 18:00 10/29/16 09:00 (Lovenox Inj) 40 mg Q24H SQ 10/22/16 20:00 10/28/16 21:02 (Symbicort 160-4.5 Inh) 1 puff Q12HR INH 10/23/16 21:00 10/29/16 09:00 (Duoneb Neb) 1 ampule Q2HR NEB PRN NEB 10/23/16 15:30 10/29/16 08:38 ([place] 5-325 Mg) 1 tab Q4H PRN PO 10/28/16 12:15 10/29/16 06:02 (Tylenol) 650 mg Q4H PRN PO 10/28/16 12:15 (Ativan) 0.5 mg Q8H PRN PO 10/28/16 16:15 10/29/16 08:59 A/P Assessment and Plan 56-year-old female admitted secondary to respiratory distress and COPD and pneumonia. GI complications, now status post ileostomy. Continue physical therapy. C-spine MRI is within normal limits. MRI of brain shows abnormal findings which are not specific (scattered white matter lesions, multiple sclerosis versus ischemic changes). Symbicort and albuterol resumed. Continue to follow patient's neuro status. Episode of shortness of breath occurred while patient was attempting to feed herself alone in the room. She denies any associated cough, difficulty swallowing or choking. Patient believes she became anxious at her inability to successfully feed herself. No h /o anxiety. CXR 10/27 reviewed, unremarkable study O2 sat 97%. Patient is afebrile. BP 110/60. Consult ST for bedside swallow evaluation Discussed with nursing staff being present in the room during meal times Continue with Ativan po prn Given patients prolonged hospitalization/illness and suspected extended recovery as well as possible panic attack earlier today while attempting ADLs we will consult psychiatry which patient has requested as well Paraplegia of unknown etiology Critical Illness Polyneuropathy as per Neurology specialist, secondary to bedridden status plus steroids plus infection MRI brain completed and per Neuro, do not think its MS or cord lesion, also less likely MS as no improvement on steroids. EMG/nerve conduction testing c/w critical illness polyneuropathy/myopathy. Continue participation with PT and OT Continue gabapentin for paresthesias Limit Steroid use and repeat MRI in 2 to 3 months. Acute hypercarbic respiratory failure COPD exacerbation. resolved HCAP, LLL infiltrate, resolved Bronchospasms extubated 10/10 Pulmonary and ID following - stable from pulm standpoint and ID has signed off Continue bronchodilators, Mucolytic and Incentive spirometry Continue Duonebs Oxygen as needed Chest tightness, chronic atypical, worse after meals and with lying supine, fullness after meals unlikely of cardiac origin. Suspect GI etiology CXR 10/27 personally reviewed and is normal examination EKG 10/13 personally reviewed and NSR Echo 09/10/15 EF 55-60%, normal wall motion, PA peak pressure 35mm Hg Recommend patient follow up with GI as outpatient for further evaluation Colonic ileus Status post ileostomy placed 10/13/16 Chronic hemorrhoids Regular diet completed course of Levaquin and Flagyl until 10/24/16 as per ID specialist Surgery following History of tobacco abuse Currently weaned off all nicotine Strongly recommended to stop smoking. Hypertension, controlled continue on Cardizem 60mg q6h and Hydralazine 50mg q8hr Lisinopril and Lopressor on hold due to hypotension Global deconditioning Approximately 22 days in ICU much of which was on a ventilator Continue physical therapy and occupational therapy Patient will need to be able to walk prior to discharge Patients boyfriend plans to interact during therapy sessions to assist patient following discharge Transaminitis trending down monitor as indicated Hyponatremia mild, improved monitor as indicated Low TSH, low free T3 and low free T4 unsure of clinical significance especially in light of normal MRI findings recommend repeat as outpatient in 2 months Insomnia trial of Melatonin DVT prophylaxis SCDs Lovenox 40mg sq Discussed with patient, nursing staff and Dr. Morel Discharge Planning Reviewed last CM note 10/26 - patient has no benefits for [facility] or any rehab. Patient is still max assist. She is self pay. Gina Dahl Oct 29, 2016 09:53
--- NOTE | 2016-10-29 14:04 | PD.PSY.CON ---
Provisional Diagnosis Admission Date Sep 25, 2016 at 06:19 History of Present Illness Service Psychiatry Consult Requested By Reason for Consult Anxiety, depression Primary Care Physician No Primary Care Physician Past Family Social History Coded Allergies: No Known Allergies (Unverified , 09/24/16) Active Scripts Prednisone (48) 10 mg tab Dose Pack (Prednisone (48) 10 mg tab Dose Pack) 10 Mg Dspk, 10 MG PO DIRECTED for Inflammation, #1 DSPK 0 Refills Prov:Danitza Tran MD 09/24/16 Azithromycin (Zithromax Z-Rishabh) 250 Mg Dspk, 250 MG PO DIRECTED for Infection , #1 DSPK 0 Refills 500 MG (2 tabs) day 1, then 1 tab days 2-5. Prov:Jay Jay Daniel MD 08/23/16 Albuterol Neb (Albuterol Neb) 2.5 Mg/3 Ml Neb, 2.5 MG NEB Q4HR NEB Y for SHORTNESS OF BREATH, #60 NEBULE 0 Refills Prov:Jay Jay Daniel MD 08/23/16 Ipratropium-Albuterol Neb (Duoneb) 0.5-2.5 Mg/3 Ml Neb, 1 NEBULE INH Q6HR NEB for Breathing Treatment, #120 NEBULE 0 Refills Prov:Jay Jay Daniel MD 08/23/16 Reported Medications Metoprolol Tartrate (Metoprolol Tartrate) 50 Mg Tab, 50 MG PO BID, #60 TAB 0 Refills 09/24/16 Tiotropium Inh (Spiriva Handihaler) 18 Mcg Cap, 18 MCG INH DAILY for COPD, #30 CAP 0 Refills 1 capsule = 18 mcg 08/23/16 Multiple Vitamin (Multiple Vitamin) 1 Tab, 1 TAB PO DAILY for Nutritional Supplement, TAB 0 Refills 08/23/16 Albuterol 8.5 GM Inh (Proair Hfa 8.5 GM Inh) 90 Mcg/Act Aer, 2 PUFF INH Q6H Y for SHORTNESS OF BREATH, #1 INHALER 0 Refills 108 mcg/actuation 08/23/16 Budesonide-Formoterol Inh (Symbicort Inh) 160-4.5 Mcg/Act Aero, 2 PUFF INH Q12HR , #1 INHALER 0 Refills 08/23/16 Lisinopril-Hctz (Lisinopril-Hctz) 10-12.5 Mg Tab, 1 TAB PO DAILY for Blood Pressure Management, #30 TAB 0 Refills 05/04/16 Current Medications Medications (Trade) Dose Ordered Sig/Amadou Route Start Time Stop Time Status Last Admin (NS Flush) 2 ml UNSCH PRN IV FLUSH 09/25/16 06:15 10/24/16 03:08 (NS Flush) 2 ml BID IV FLUSH 09/25/16 09:00 10/29/16 09:00 (Narcan Inj) 0.4 mg UNSCH PRN IV 09/25/16 06:15 (Lopressor) 50 mg BID PO 09/25/16 09:00 Future Hold 09/25/16 19:41 (Prinivil) 10 mg DAILY PO 09/25/16 09:00 Future Hold 09/25/16 08:32 (Hydrodiuril) 12.5 mg DAILY PO 09/25/16 09:00 Future Hold 09/25/16 08:32 (Pulmicort Respule Neb) 0.5 mg Q12HR NEB NEB 09/25/16 12:45 10/29/16 08:38 (Spiriva Inh) 18 mcg DAILY INH 09/25/16 12:45 10/29/16 09:00 (Cardizem) 60 mg Q6H PO 09/29/16 14:00 10/29/16 13:12 (Reglan Inj) 10 mg Q8HR IV PUSH 10/01/16 09:00 Future Hold 10/13/16 06:23 (Peridex 0.12% Liq) 15 ml BID@08,20 MT 10/03/16 20:00 10/28/16 08:00 (Apresoline Inj) 10 mg Q1HR PRN IV PUSH 10/04/16 16:00 10/13/16 07:52 (Trandate Inj) 10 mg Q1HR PRN IV PUSH 10/04/16 16:00 (Vasotec Inj) 1.25 mg Q6H PRN IV PUSH 10/04/16 16:00 (Apresoline) 50 mg Q8HR PO 10/13/16 14:00 10/29/16 13:12 (Zofran Inj) 4 mg Q6H PRN IV PUSH 10/13/16 11:15 10/22/16 05:09 (Beneprotein Powder) 1 pack TID G-TUBE 10/14/16 13:00 10/22/16 15:15 (Protonix) 20 mg DAILY PO 10/18/16 09:00 10/29/16 09:00 (KCl) 20 meq Q12HR PO 10/20/16 09:00 10/29/16 09:00 (Neurontin) 100 mg TID PO 10/20/16 18:00 10/29/16 11:08 (Lovenox Inj) 40 mg Q24H SQ 10/22/16 20:00 10/28/16 21:02 (Symbicort 160-4.5 Inh) 1 puff Q12HR INH 10/23/16 21:00 10/29/16 09:00 (Duoneb Neb) 1 ampule Q2HR NEB PRN NEB 10/23/16 15:30 10/29/16 08:38 ([place] 5-325 Mg) 1 tab Q4H PRN PO 10/28/16 12:15 10/29/16 11:08 (Tylenol) 650 mg Q4H PRN PO 10/28/16 12:15 (Ativan) 0.5 mg Q8H PRN PO 10/28/16 16:15 10/29/16 08:59 (Melatonin) 5 mg HS PRN PO 10/29/16 11:00 Physical Exam Vital Signs Vital Signs Date Time Temp Pulse Resp B/P (MAP) Pulse Ox O2 Delivery O2 Flow Rate FiO2 10/29/16 12:00 97.8 87 18 117/66 (83) 97 10/29/16 07:15 Room Air 10/27/16 19:04 21 10/25/16 07:56 3.00 I/O 10/29/16 10/29/16 10/30/16 08:00 16:00 00:00 Intake Total 700 ml Balance 700 ml Lab Results Date/Time Source Procedure Growth Status 10/12/16 14:49 Blood Peripheral Aerobic Blood Culture - Final NO GROWTH IN 5 DAYS Complete 10/12/16 14:49 Blood Peripheral Anaerobic Blood Culture - Final NO GROWTH IN 5 DAYS Complete 10/07/16 18:45 Sputum Endotracheal Gram Stain - Final Complete 10/07/16 18:45 Sputum Endotracheal Sputum Culture - Final MODERATE GROWTH NORMAL RESPIRATORY TERRA Complete 10/05/16 21:00 Urine Catheterized Urine Urine Culture - Final NO GROWTH IN 48 HOURS. Complete Assessment & Plan Problem List: (1) Adjustment disorder with anxiety ICD Codes: F43.22 - Adjustment disorder with anxiety Assessment & Plan: She was visited for psychiatric evaluation, but patient was accompanied with visitors and preferred to be seen in another location. Patient will be revisited tomorrow morning for a psychiatric evaluation. Assessment & Plan Estimated LOS: Kaden Currie MD Oct 29, 2016 14:04
--- NOTE | 2016-10-29 16:47 | PD.WCN.NOT ---
Wound Consult Description: Consult placed per Dr Yo for "stoma" Communicated with: Patient Recommendation: Please empty ileostomy pouch of effluent when 1/2-1/3 full Continue to educate patient on ileostomy when emptying and changing appliance Additional Information: Patient seen on [address] [place] [address] for ostomy assessment Ostomy Type: Ileostomy Surgeon: Victor Manuel Yo MD Date of Surgery: Oct 13, 2016 Complete: Education materials, Other (patient instructed to call staff when pouch begins to feel heavy or is in need of emptying/releasing air etc.) Educated patient on: Stoma appearance, size, shape, and functionality. Continue to observe the emptying of the pouch and the appliance changes. Additional information Patient seen on [address] [place] [address] for ostomy/appliance assessment. Patient states that her appliance popped off again and had to be changed this morning. Pouch is noted with ~50 ml soft brown/green effluent. Stoma is round, red, moist, functioning with lumen noted to 8 o'clock. There is minimal air in the pouch at this assessment and therefore was not released. Patient states that she has worked with physical and occupational therapy today and is tired since she did not sleep well last night. Patient states that she was able to watch the changing of her appliance this morning and asked the nurse not use the stoma paste as she has been taught that it is not an adhesive, but more like a caulk. Patient also states that she has been trying to feed herself and is starting to get stronger however still needs help with meals. Patient will be seen again tomorrow for more teaching regarding her ostomy. Nell Nur [facility] Oct 29, 2016 16:47
--- NOTE | 2016-10-29 17:45 | HHI.PR ---
Subjective Remarks C/R Surg POD afebrile, VSS PO better, added fiber/salads, reg diet stoma funct Slow progr with PT, actually OOB today, Objective - Vital Signs Date Time Temp Pulse Resp B/P (MAP) Pulse Ox O2 Delivery O2 Flow Rate FiO2 10/29/16 12:00 97.8 87 18 117/66 (83) 97 10/29/16 07:15 Room Air 10/27/16 19:04 21 10/25/16 07:56 3.00 Result Diagram: 10/28/16 0815 10/28/16 0815 Objective Remarks PE Abd - lg, soft, mild tympany, wound clean some strenght in legs A/P Assessment and Plan Imp: radha diet, liq PT incr, barely OOB, try walking DC plans for rehab , home soon Victor Manuel Yo MD Oct 29, 2016 17:45
--- NOTE | 2016-10-29 18:51 | HHI.PR ---
Subjective Remarks 56 YOWF with VDRF, , extubated 10/10 no Fever Tolerates PO Feels weak Appetite good " I am able to eat by myself" Objective Vital Signs Vital Signs Date Time Temp Pulse Resp B/P (MAP) Pulse Ox O2 Delivery O2 Flow Rate FiO2 10/29/16 16:00 97.0 92 18 99/56 (70) 97 10/29/16 12:00 97.8 87 18 117/66 (83) 97 10/29/16 08:42 97 10/29/16 08:00 98.2 77 18 110/60 (77) 94 10/29/16 07:50 76 10/29/16 07:15 Room Air 10/29/16 04:00 98.1 81 18 98/51 (67) 95 10/29/16 04:00 Room Air 10/29/16 00:00 Room Air 10/29/16 00:00 98.2 90 20 126/72 (90) 97 10/28/16 20:00 Room Air 10/28/16 20:00 97.2 95 20 120/70 (87) 97 10/28/16 20:00 97 10/28/16 19:29 97 I/O 10/28/16 10/28/16 10/28/16 10/29/16 10/29/16 10/29/16 07:00 15:00 23:00 07:00 15:00 23:00 Intake Total 480 ml 480 ml 700 ml 360 ml Output Total 300 ml 1000 ml 400 ml Balance 180 ml -520 ml 700 ml -40 ml Intake Oral 480 ml 480 ml 700 ml 360 ml Output Urine Total 1000 ml 400 ml Stool Total 300 ml # Voids 3 2 # Bowel Movements 0 Result Diagram: 10/28/1681410/28/16814 Objective Remarks GENERAL: MBMN WF, on Vent SKIN: Warm and dry. HEAD: Normocephalic. EYES: No scleral icterus. No injection or drainage. NECK: Supple, trachea midline. No JVD or lymphadenopathy. CARDIOVASCULAR: Regular rate and rhythm without murmurs, gallops, or rubs. RESPIRATORY: Breath sounds equal bilaterally. No accessory muscle use. GASTROINTESTINAL: Abdomen soft, non-tender, nondistended. Ileostomy MUSCULOSKELETAL: No cyanosis, or edema. BACK: Nontender without obvious deformity. No CVA tenderness. A/P Assessment and Plan VDRF, s/p extubation 10/10 COPD Exac HTN Nicotine use S/p Exp Lap, ileostomy PLAN Abx per ID Nathaniel qid Encourage PO. Physical therapy. Stable from pulm standpoint Abdirahman Marquez MD Oct 29, 2016 18:50
[2016-10-29] MEDS: ENOXAPARIN SODIUM 40 MG/0.4 ML SYRINGE SQ SCH (21:15)
[2016-10-30] VITALS (9 sets, daily range): BP systolic 94–138; BP diastolic 54–74; PULSE 81–92; RESP 16–20; TEMP 97.6–98.2; O2SAT 95–98
[2016-10-30] MEDS: LORazepam 0.5 MG TAB PO PRN ×3 (01:05→17:55)
[2016-10-30] MEDS: DILTIAZEM HCL 60 MG TAB PO SCH ×5 (01:06→21:35)
[2016-10-30] MEDS: ACETAMINOPHEN/HYDROcodone 325 MG/5 MG TAB PO PRN ×5 (01:06→23:17)
[2016-10-30] MEDS: RESP: ALBUTEROL 2.5 MG/IPRATROPIUM 0.5 MG NEB (PRN) NEB ×2 (05:56→14:38)
[2016-10-30] MEDS: hydrALAZINE HCL 50 MG TAB PO SCH ×4 (06:00→21:35)
[2016-10-30] MEDS: SODIUM CHLORIDE 0.9% FLUSH 10 ML FLUSH IV FLUSH SCH ×2 (07:27→21:00)
[2016-10-30] MEDS: RESP: BUDESONIDE 0.5 MG/2 ML NEB NEB SCH ×2 (07:43→19:04)
[2016-10-30] MEDS: CHLORHEXIDINE 0.12% (ORAL KIT) 15 ML CUP MT SCH ×2 (08:00→20:00)
--- NOTE | 2016-10-30 08:50 | HHI.PR ---
Subjective Remarks 10/30: Follow up on patient with respiratory distress, COPD, PNA, colonic ileus s/p ileostomy and critical illness polyneuropathy. Seen in her bedroom and examined, in the presence of SENIOR BIOINFORMATICS SCIENTIST, explained she is not able to be without an IV Line in place even if not receiving any medication through it due to that is mandatory in Hospitalized patients to have an IV line in place for Code purposes, she wants to eat regular food is been eating from [employer]. Objective Vital Signs Date Time Temp Pulse Resp B/P (MAP) Pulse Ox O2 Delivery O2 Flow Rate FiO2 10/30/16 07:54 Room Air 3.00 21 10/30/16 07:45 98 21 10/30/16 06:00 97 10/30/16 04:00 97.9 89 18 105/64 (78) 96 10/30/16 00:00 98.1 84 20 115/64 (81) 96 10/29/16 20:38 95 21 10/29/16 20:31 Room Air 10/29/16 20:00 97.9 89 18 105/64 (78) 96 10/29/16 16:00 97.0 92 18 99/56 (70) 97 10/29/16 12:00 97.8 87 18 117/66 (83) 97 I/O 10/29/16 10/29/16 10/29/16 10/30/16 10/30/16 10/30/16 07:00 15:00 23:00 07:00 15:00 23:00 Intake Total 700 ml 360 ml Output Total 500 ml 300 ml Balance 700 ml -140 ml -300 ml Intake Oral 700 ml 360 ml Output Urine Total 400 ml 300 ml Stool Total 100 ml # Voids 2 3 Result Diagram: 10/28/1681410/28/16814 Imaging Last Impressions Chest X-Ray 10/27/16 0000 Signed Impressions: Service Date/Time: Thursday, October 27, 2016 14:49 - CONCLUSION: Normal examination. Jamie Tobin Jr., MD Cervical Spine MRI 10/21/16 0000 Signed Impressions: Service Date/Time: Friday, October 21, 2016 08:43 - CONCLUSION: 1. Motion degraded exam. 2. No acute abnormality. 3. Mild degenerative disc disease without neural impingement. Jamie Tobin Jr., MD Brain MRI 10/21/16 0000 Signed Impressions: Service Date/Time: Friday, October 21, 2016 08:43 - CONCLUSION: 1. Unchanged nonspecific white matter lesions as detailed above. Differential diagnostic considerations remains quite broad. The 2 most likely etiologies would be a demyelinating process such as multiple sclerosus versus chronic small vessel ischemic change. Jamie Tobin Jr., MD Abdomen/Pelvis CT 10/13/16 0000 Signed Impressions: Service Date/Time: Thursday, October 13, 2016 13:13 - CONCLUSION: 1. Pneumoperitoneum likely from the hepatic flexure region of the colon. Pneumatosis was seen in this region on the prior exam. This area now appears thickened. 2. Induration around the pancreas concerning for pancreatitis. 3. New consolidation or atelectasis at the medial left lung base. Oliver Soria MD Abdomen X-Ray 10/12/16 0000 Signed Impressions: Service Date/Time: Wednesday, October 12, 2016 07:42 - CONCLUSION: Nasogastric tube in good position, probably ileus. Rico Boston MD FACR Procedures Endotracheal Intubation and extubation. Expressive Colonoscopy Ileostomy Other Results Laboratory Tests Test 09/25/16 00:00 09/26/16 11:15 10/04/16 08:23 10/05/16 04:49 Nasal Screen MRSA (PCR) MRSA NOT DETECTED Urine Squamous Epithelial Cells <1 /hpf Urine Hyaline Casts 6 /lpf Blood Urea Nitrogen 24 MG/DL Creatinine 0.56 MG/DL Random Glucose 129 MG/DL Total Protein 5.6 GM/DL Albumin 2.5 GM/DL Calcium Level 8.3 MG/DL Phosphorus Level 3.1 MG/DL Magnesium Level 2.7 MG/DL Alkaline Phosphatase 45 U/L Aspartate Amino Transf (AST/SGOT) 41 U/L Alanine Aminotransferase (ALT/SGPT) 74 U/L Total Bilirubin 0.3 MG/DL Direct Bilirubin 0.1 MG/DL Sodium Level 140 MEQ/L Potassium Level 4.0 MEQ/L Chloride Level 100 MEQ/L Carbon Dioxide Level 33.1 MEQ/L Indirect Bilirubin 0.2 MG/DL Thyroid Stimulating Hormone 3rd Gen 0.247 uIU/ML Lactic Acid Level 1.4 mmol/L Total Creatine Kinase 285 U/L Creatine Kinase MB 13.3 NG/ML Creatine Kinase MB % 4.7 % Free Thyroxine 0.74 NG/DL Free Triiodothyronine (T3) pg/dL 0.88 PG/ML Test 10/05/16 12:30 10/05/16 21:00 10/06/16 08:10 10/07/16 05:00 Troponin I 0.04 NG/ML Urine Color YELLOW Urine Turbidity CLEAR Urine pH 5.5 Urine Specific [place] 1.022 Urine Protein TRACE mg/dL Urine Glucose (UA) NEG mg/dL Urine Ketones NEG mg/dL Urine Occult Blood SMALL Urine Nitrite NEG Urine Bilirubin NEG Urine Urobilinogen LESS THAN 2.0 MG/DL Urine Leukocyte Esterase NEG Urine RBC 92 /hpf Urine WBC 3 /hpf Urine Bacteria RARE /hpf Urine Mucus FEW /lpf Microscopic Urinalysis Comment CATH-CULTURE IND Nucleated Red Blood Cells 1 /100 WBC Stool C. difficile Toxin (PCR) NEGATIVE Stl C. difficile Toxin Epiderm 027 PRESUMPTIVE NEGATIVE Test 10/09/16 05:45 10/13/16 14:30 10/13/16 20:04 10/14/16 04:45 Promyelocytes 1 % Toxic Vacuolation PRESENT Prothrombin Time 9.9 SEC Prothromb Time International Ratio 0.9 RATIO Blood Gas Puncture Site ART LINE Blood Gas Patient Temperature 98.6 Blood Gas HCO3 21 mmol/L Blood Gas Base Excess -3.0 mmol/L Blood Gas Oxygen Saturation 97 % Arterial Blood pH 7.40 Arterial Blood Partial Pressure CO2 35 mmHg Arterial Blood Partial Pressure O2 173 mmHg Arterial Blood Oxygen Content 16.7 Vol % Arterial Blood Carboxyhemoglobin 1.4 % Arterial Blood Methemoglobin 1.2 % Blood Gas Hemoglobin 12.0 G/DL Oxygen Delivery Device VENTILATOR Blood Gas Ventilator Setting AC/10/500/PEEP8 Blood Gas Inspired Oxygen 70 % Blood Urea Nitrogen 21 MG/DL Creatinine 0.29 MG/DL Random Glucose 113 MG/DL Total Protein 5.1 GM/DL Albumin 1.9 GM/DL Calcium Level 7.6 MG/DL Phosphorus Level 2.5 MG/DL Magnesium Level 2.1 MG/DL Alkaline Phosphatase 64 U/L Aspartate Amino Transf (AST/SGOT) 142 U/L Alanine Aminotransferase (ALT/SGPT) 362 U/L Total Bilirubin 0.7 MG/DL Sodium Level 137 MEQ/L Potassium Level 4.4 MEQ/L Chloride Level 105 MEQ/L Carbon Dioxide Level 26.4 MEQ/L Amylase Level 95 U/L Lipase 315 U/L Test 10/15/16 05:10 10/19/16 09:05 10/28/16 08:15 Vancomycin Level Trough 9.1 MCG/ML Vitamin B12 Level 621 PG/ML White Blood Count 8.6 TH/MM3 Red Blood Count 3.90 MIL/MM3 Hemoglobin 11.8 GM/DL Hematocrit 34.5 % Mean Corpuscular Volume 88.5 FL Mean Corpuscular Hemoglobin 30.1 PG Mean Corpuscular Hemoglobin Concent 34.1 % Red Cell Distribution Width 13.0 % Platelet Count 295 TH/MM3 Mean Platelet Volume 8.4 FL Neutrophils (%) (Auto) 67.6 % Lymphocytes (%) (Auto) 21.7 % Monocytes (%) (Auto) 8.4 % Eosinophils (%) (Auto) 1.3 % Basophils (%) (Auto) 1.0 % Neutrophils # (Auto) 5.8 TH/MM3 Lymphocytes # (Auto) 1.9 TH/MM3 Monocytes # (Auto) 0.7 TH/MM3 Eosinophils # (Auto) 0.1 TH/MM3 Basophils # (Auto) 0.1 TH/MM3 CBC Comment AUTO DIFF Differential Total Cells Counted 100 Neutrophils % (Manual) 53 % Band Neutrophils % 15 % Lymphocytes % 19 % Monocytes % 7 % Eosinophils % 1 % Basophils % 1 % Neutrophils # (Manual) 6.2 TH/MM3 Metamyelocytes 3 % Myelocytes 1 % Differential Comment FINAL DIFF MANUAL Platelet Estimate NORMAL Platelet Morphology Comment NORMAL Red Cell Morphology Comment NORMAL Blood Urea Nitrogen 7 MG/DL Creatinine 0.29 MG/DL Random Glucose 92 MG/DL Total Protein 6.4 GM/DL Albumin 2.9 GM/DL Calcium Level 9.4 MG/DL Alkaline Phosphatase 117 U/L Aspartate Amino Transf (AST/SGOT) 42 U/L Alanine Aminotransferase (ALT/SGPT) 98 U/L Total Bilirubin 0.5 MG/DL Sodium Level 135 MEQ/L Potassium Level 3.9 MEQ/L Chloride Level 102 MEQ/L Carbon Dioxide Level 22.3 MEQ/L Anion Gap 11 MEQ/L Estimat Glomerular Filtration Rate 239 ML/MIN Objective Remarks GENERAL: NAD, A&Ox3 HEAD: Normocephalic. NECK: Supple, trachea midline. No lymphadenopathy. EYES: No scleral icterus. No injection or drainage. CARDIOVASCULAR: Regular rate and rhythm without murmurs, gallops, or rubs. RESPIRATORY: Breath sounds equal bilaterally. No accessory muscle use. GASTROINTESTINAL: Abdomen soft, non-tender, nondistended. MUSCULOSKELETAL: No cyanosis, or edema. SKIN: Warm and dry. NEURO: Global weakness, weakness of upper and lower extremities greater in the upper extremities, numbness in lower extremities. Medications and IVs Current Medications Medications (Trade) Dose Ordered Sig/Amadou Route Start Time Stop Time Status Last Admin (NS Flush) 2 ml UNSCH PRN IV FLUSH 09/25/16 06:15 10/24/16 03:08 (NS Flush) 2 ml BID IV FLUSH 09/25/16 09:00 10/30/16 07:27 (Narcan Inj) 0.4 mg UNSCH PRN IV 09/25/16 06:15 (Lopressor) 50 mg BID PO 09/25/16 09:00 Future Hold 09/25/16 19:41 (Prinivil) 10 mg DAILY PO 09/25/16 09:00 Future Hold 09/25/16 08:32 (Hydrodiuril) 12.5 mg DAILY PO 09/25/16 09:00 Future Hold 09/25/16 08:32 (Pulmicort Respule Neb) 0.5 mg Q12HR NEB NEB 09/25/16 12:45 10/30/16 07:43 (Spiriva Inh) 18 mcg DAILY INH 09/25/16 12:45 10/29/16 09:00 (Cardizem) 60 mg Q6H PO 09/29/16 14:00 10/30/16 01:06 (Reglan Inj) 10 mg Q8HR IV PUSH 10/01/16 09:00 Future Hold 10/13/16 06:23 (Peridex 0.12% Liq) 15 ml BID@08,20 MT 10/03/16 20:00 10/28/16 08:00 (Apresoline Inj) 10 mg Q1HR PRN IV PUSH 10/04/16 16:00 10/13/16 07:52 (Trandate Inj) 10 mg Q1HR PRN IV PUSH 10/04/16 16:00 (Vasotec Inj) 1.25 mg Q6H PRN IV PUSH 10/04/16 16:00 (Apresoline) 50 mg Q8HR PO 10/13/16 14:00 10/29/16 13:12 (Zofran Inj) 4 mg Q6H PRN IV PUSH 10/13/16 11:15 10/22/16 05:09 (Beneprotein Powder) 1 pack TID G-TUBE 10/14/16 13:00 10/22/16 15:15 (Protonix) 20 mg DAILY PO 10/18/16 09:00 10/29/16 09:00 (KCl) 20 meq Q12HR PO 10/20/16 09:00 10/29/16 21:16 (Neurontin) 100 mg TID PO 10/20/16 18:00 10/29/16 17:12 (Lovenox Inj) 40 mg Q24H SQ 10/22/16 20:00 10/29/16 21:15 (Symbicort 160-4.5 Inh) 1 puff Q12HR INH 10/23/16 21:00 10/29/16 21:00 (Duoneb Neb) 1 ampule Q2HR NEB PRN NEB 10/23/16 15:30 10/30/16 05:56 ([place] 5-325 Mg) 1 tab Q4H PRN PO 10/28/16 12:15 10/30/16 06:12 (Tylenol) 650 mg Q4H PRN PO 10/28/16 12:15 (Ativan) 0.5 mg Q8H PRN PO 10/28/16 16:15 10/30/16 01:05 (Melatonin) 5 mg HS PRN PO 10/29/16 11:00 A/P Assessment and Plan 56-year-old female admitted secondary to respiratory distress and COPD and pneumonia. GI complications, now status post ileostomy. Continue physical therapy. C-spine MRI is within normal limits. MRI of brain shows abnormal findings which are not specific (scattered white matter lesions, multiple sclerosis versus ischemic changes). Symbicort and albuterol resumed. Continue to follow patient's neuro status. Episode of shortness of breath occurred while patient was attempting to feed herself alone in the room. She denies any associated cough, difficulty swallowing or choking. Patient believes she became anxious at her inability to successfully feed herself. No h /o anxiety. CXR 10/27 reviewed, unremarkable study O2 sat 97%. Patient is afebrile. BP 110/60. Consult ST for bedside swallow evaluation Discussed with nursing staff being present in the room during meal times Continue with Ativan po prn Given patients prolonged hospitalization/illness and suspected extended recovery as well as possible panic attack earlier today while attempting ADLs we will consult psychiatry which patient has requested as well Paraplegia of unknown etiology Critical Illness Polyneuropathy as per Neurology specialist, secondary to bedridden status plus steroids plus infection MRI brain completed and per Neuro, do not think its MS or cord lesion, also less likely MS as no improvement on steroids. EMG/nerve conduction testing c/w critical illness polyneuropathy/myopathy. Continue participation with PT and OT Continue gabapentin for paresthesias Limit Steroid use and repeat MRI in 2 to 3 months. Acute hypercarbic respiratory failure COPD exacerbation. resolved HCAP, LLL infiltrate, resolved Bronchospasms extubated 10/10 Pulmonary and ID following - stable from pulm standpoint and ID has signed off Continue bronchodilators, Mucolytic and Incentive spirometry Continue Duonebs Oxygen as needed Chest tightness, chronic atypical, worse after meals and with lying supine, fullness after meals unlikely of cardiac origin. Suspect GI etiology CXR 10/27 personally reviewed and is normal examination EKG 10/13 personally reviewed and NSR Echo 09/10/15 EF 55-60%, normal wall motion, PA peak pressure 35mm Hg Recommend patient follow up with GI as outpatient for further evaluation Colonic ileus Status post ileostomy placed 10/13/16 Chronic hemorrhoids Regular diet completed course of Levaquin and Flagyl until 10/24/16 as per ID specialist Surgery following History of tobacco abuse Currently weaned off all nicotine Strongly recommended to stop smoking. Hypertension, controlled continue on Cardizem 60mg q6h and Hydralazine 50mg q8hr Lisinopril and Lopressor on hold due to hypotension Global deconditioning Approximately 22 days in ICU much of which was on a ventilator Continue physical therapy and occupational therapy Patient will need to be able to walk prior to discharge Patients boyfriend plans to interact during therapy sessions to assist patient following discharge Transaminitis trending down monitor as indicated Low TSH, low free T3 and low free T4 unsure of clinical significance especially in light of normal MRI findings recommend repeat as outpatient in 2 months Insomnia trial of Melatonin DVT prophylaxis SCDs Lovenox 40mg sq Discharge Planning Reviewed last CM note 10/26 - patient has no benefits for [facility] or any rehab. Patient is still max assist. She is self pay. Raciel Dorman MD Oct 30, 2016 08:50
[2016-10-30] MEDS: BENEPROTEIN POWDER 1 PACK G-TUBE SCH ×3 (09:00→17:52)
[2016-10-30] MEDS: POTASSIUM CHLORIDE 20 MEQ CONTROLLED RELEASE TAB PO SCH ×2 (09:15→21:35)
[2016-10-30] MEDS: PANTOPRAZOLE SOD 20 MG DELAYED RELEASE TAB PO SCH (09:15)
[2016-10-30] MEDS: GABAPENTIN 100 MG CAP PO SCH ×3 (09:15→17:55)
[2016-10-30] MEDS: TIOTROPIUM BROMIDE 18 MCG INH INH SCH (09:17)
[2016-10-30] MEDS: BUDESONIDE-FORMOTEROL 160/4.5 MCG INHALER INH SCH ×2 (09:18→21:00)
--- NOTE | 2016-10-30 10:09 | HHI.PR ---
Subjective Remarks C/R Surg POD afebrile, VSS PO better, added fiber/salads, reg diet stoma funct Slow progr with PT Objective - Vital Signs Date Time Temp Pulse Resp B/P (MAP) Pulse Ox O2 Delivery O2 Flow Rate FiO2 10/30/16 07:54 Room Air 3.00 21 10/30/16 07:45 98 10/30/16 04:00 97.9 89 18 105/64 (78) Result Diagram: 10/28/1681410/28/16814 Objective Remarks PE Abd - lg, soft, mild tympany, wound clean some strenght in legs, more ROM A/P Assessment and Plan Imp: Reg diet PT incr, barely OOB, try walking DC plans for rehab , home soon, RTO after rehab for stoma closure Victor Manuel Yo MD Oct 30, 2016 10:09
--- NOTE | 2016-10-30 12:25 | PD.PSY.CON ---
Provisional Diagnosis Admission Date Sep 25, 2016 at 06:19 History of Present Illness Service Psychiatry Consult Requested By Reason for Consult Anxiety Primary Care Physician No Primary Care Physician Past Family Social History Coded Allergies: No Known Allergies (Unverified , 09/24/16) Active Scripts Prednisone (48) 10 mg tab Dose Pack (Prednisone (48) 10 mg tab Dose Pack) 10 Mg Dspk, 10 MG PO DIRECTED for Inflammation, #1 DSPK 0 Refills Prov:Danitza Tran MD 09/24/16 Azithromycin (Zithromax Z-Rishabh) 250 Mg Dspk, 250 MG PO DIRECTED for Infection , #1 DSPK 0 Refills 500 MG (2 tabs) day 1, then 1 tab days 2-5. Prov:Jay Jay Daniel MD 08/23/16 Albuterol Neb (Albuterol Neb) 2.5 Mg/3 Ml Neb, 2.5 MG NEB Q4HR NEB Y for SHORTNESS OF BREATH, #60 NEBULE 0 Refills Prov:Jay Jay Daniel MD 08/23/16 Ipratropium-Albuterol Neb (Duoneb) 0.5-2.5 Mg/3 Ml Neb, 1 NEBULE INH Q6HR NEB for Breathing Treatment, #120 NEBULE 0 Refills Prov:Jay Jay Daniel MD 08/23/16 Reported Medications Metoprolol Tartrate (Metoprolol Tartrate) 50 Mg Tab, 50 MG PO BID, #60 TAB 0 Refills 09/24/16 Tiotropium Inh (Spiriva Handihaler) 18 Mcg Cap, 18 MCG INH DAILY for COPD, #30 CAP 0 Refills 1 capsule = 18 mcg 08/23/16 Multiple Vitamin (Multiple Vitamin) 1 Tab, 1 TAB PO DAILY for Nutritional Supplement, TAB 0 Refills 08/23/16 Albuterol 8.5 GM Inh (Proair Hfa 8.5 GM Inh) 90 Mcg/Act Aer, 2 PUFF INH Q6H Y for SHORTNESS OF BREATH, #1 INHALER 0 Refills 108 mcg/actuation 08/23/16 Budesonide-Formoterol Inh (Symbicort Inh) 160-4.5 Mcg/Act Aero, 2 PUFF INH Q12HR , #1 INHALER 0 Refills 08/23/16 Lisinopril-Hctz (Lisinopril-Hctz) 10-12.5 Mg Tab, 1 TAB PO DAILY for Blood Pressure Management, #30 TAB 0 Refills 05/04/16 Current Medications Medications (Trade) Dose Ordered Sig/Amadou Route Start Time Stop Time Status Last Admin (NS Flush) 2 ml UNSCH PRN IV FLUSH 09/25/16 06:15 10/24/16 03:08 (NS Flush) 2 ml BID IV FLUSH 09/25/16 09:00 10/30/16 07:27 (Narcan Inj) 0.4 mg UNSCH PRN IV 09/25/16 06:15 (Lopressor) 50 mg BID PO 09/25/16 09:00 Future Hold 09/25/16 19:41 (Prinivil) 10 mg DAILY PO 09/25/16 09:00 Future Hold 09/25/16 08:32 (Hydrodiuril) 12.5 mg DAILY PO 09/25/16 09:00 Future Hold 09/25/16 08:32 (Pulmicort Respule Neb) 0.5 mg Q12HR NEB NEB 09/25/16 12:45 10/30/16 07:43 (Spiriva Inh) 18 mcg DAILY INH 09/25/16 12:45 10/30/16 09:17 (Cardizem) 60 mg Q6H PO 09/29/16 14:00 10/30/16 01:06 (Reglan Inj) 10 mg Q8HR IV PUSH 10/01/16 09:00 Future Hold 10/13/16 06:23 (Peridex 0.12% Liq) 15 ml BID@08,20 MT 10/03/16 20:00 10/30/16 08:00 (Apresoline Inj) 10 mg Q1HR PRN IV PUSH 10/04/16 16:00 10/13/16 07:52 (Trandate Inj) 10 mg Q1HR PRN IV PUSH 10/04/16 16:00 (Vasotec Inj) 1.25 mg Q6H PRN IV PUSH 10/04/16 16:00 (Apresoline) 50 mg Q8HR PO 10/13/16 14:00 10/29/16 13:12 (Zofran Inj) 4 mg Q6H PRN IV PUSH 10/13/16 11:15 10/22/16 05:09 (Beneprotein Powder) 1 pack TID G-TUBE 10/14/16 13:00 10/22/16 15:15 (Protonix) 20 mg DAILY PO 10/18/16 09:00 10/30/16 09:15 (KCl) 20 meq Q12HR PO 10/20/16 09:00 10/30/16 09:15 (Neurontin) 100 mg TID PO 10/20/16 18:00 10/30/16 09:15 (Lovenox Inj) 40 mg Q24H SQ 10/22/16 20:00 10/29/16 21:15 (Symbicort 160-4.5 Inh) 1 puff Q12HR INH 10/23/16 21:00 10/30/16 09:18 (Duoneb Neb) 1 ampule Q2HR NEB PRN NEB 10/23/16 15:30 10/30/16 05:56 ([place] 5-325 Mg) 1 tab Q4H PRN PO 10/28/16 12:15 10/30/16 06:12 (Tylenol) 650 mg Q4H PRN PO 10/28/16 12:15 (Ativan) 0.5 mg Q8H PRN PO 10/28/16 16:15 10/30/16 10:00 (Melatonin) 5 mg HS PRN PO 10/29/16 11:00 Physical Exam Vital Signs Vital Signs Date Time Temp Pulse Resp B/P (MAP) Pulse Ox O2 Delivery O2 Flow Rate FiO2 10/30/16 08:00 97.6 81 20 102/58 (73) 95 10/30/16 07:54 Room Air 3.00 21 I/O 10/30/16 10/30/16 10/30/16 07:59 15:59 23:59 Output Total 300 ml Balance -300 ml Lab Results Date/Time Source Procedure Growth Status 10/12/16 14:49 Blood Peripheral Aerobic Blood Culture - Final NO GROWTH IN 5 DAYS Complete 10/12/16 14:49 Blood Peripheral Anaerobic Blood Culture - Final NO GROWTH IN 5 DAYS Complete 10/07/16 18:45 Sputum Endotracheal Gram Stain - Final Complete 10/07/16 18:45 Sputum Endotracheal Sputum Culture - Final MODERATE GROWTH NORMAL RESPIRATORY TERRA Complete 10/05/16 21:00 Urine Catheterized Urine Urine Culture - Final NO GROWTH IN 48 HOURS. Complete Assessment & Plan Problem List: (1) Adjustment disorder with anxiety ICD Codes: F43.22 - Adjustment disorder with anxiety Assessment & Plan: I have visited the patient for second time today and she refused to cooperate with psychiatry stating that she is waiting for PT and she does not want to miss her therapies. I communicated personally with Dr. Morel and asked him to reassess the need of psychiatric consult in this patient and reconsult if is really necessary. We are always very happy to help!!!! Assessment & Plan Estimated LOS: Kaden Gu MD Oct 30, 2016 12:25
--- NOTE | 2016-10-30 14:42 | PD.WCN.NOT ---
Wound Consult Description: Consult placed per Dr Yo for "stoma" Communicated with: Patient Significant other HALEIGH Romero,ASHLEY Recommendation: Please empty ileostomy pouch of effluent when 1/2-1/3 full Continue to educate patient on ileostomy when emptying and changing appliance Allow patient to watch with her mirror when changing appliance and have significant other observe if available Additional Information: Patient seen on for ostomy assessment. Significant other at bedside. Patient states feeling full after eating today. Stoma is functioning with yellow /green soft liquid effluent. Stoma is red, round, moist, lumen noted @8 o'clock , and measuring 1 1/4" therefore appliances in size 2 1/4" ordered for patient. [facility] contacted for starter kit to be sent to home address. Patient was given a kit here in the hospital setting as well with an appliance kit to practice with when she is stronger. Patient is stating that she likes to drink lemonade often and patient was encouraged to drink gatorade if ok with physician. Pouch was emptied of ~200ml of yellow/green effluent. Appliance is intact without leaks noted to barrier. Ostomy Type: Ileostomy Surgeon: Victor Manuel Yo MD Date of Surgery: Oct 13, 2016 Complete: Education materials, Other (patient instructed to call staff when pouch begins to feel heavy or is in need of emptying/releasing air etc.) Educated patient on: Using adhesive removal wipes when removing appliance. Cleansing around stoma with water only. Measuring stoma size with each appliance change for correct appliance size. May use Cavilon skin prep prior to barrier application, however needs to air dry for a full minute before applying new barrier and pouch. Change appliance every 3-5 days and do not leave on longer than 7 days. Patient educated on drinking plenty of fluids and getting up to chairs for meals if ok with physician. Additional information Patient informed that data analyst report writer would not be here this weekend or holiday. Appliances ordered from [facility] and [facility] contacted for starter kit to be sent to patient home. Nell Nur [facility] Oct 30, 2016 14:42
--- NOTE | 2016-10-30 18:10 | HHI.PR ---
Subjective Remarks 56 YOWF with VDRF, , extubated 10/10 no Fever Tolerates PO Feels weak Appetite good Works with PT Objective Vital Signs Vital Signs Date Time Temp Pulse Resp B/P (MAP) Pulse Ox O2 Delivery O2 Flow Rate FiO2 10/30/16 08:00 97.6 81 20 102/58 (73) 95 10/30/16 07:54 Room Air 3.00 21 10/30/16 07:45 98 21 10/30/16 06:00 97 10/30/16 04:00 97.9 89 18 105/64 (78) 96 10/30/16 00:00 98.1 84 20 115/64 (81) 96 10/29/16 20:38 95 21 10/29/16 20:31 Room Air 10/29/16 20:00 97.9 89 18 105/64 (78) 96 I/O 10/29/16 10/29/16 10/29/16 10/30/16 10/30/16 10/30/16 07:00 15:00 23:00 07:00 15:00 23:00 Intake Total 700 ml 360 ml Output Total 500 ml 300 ml Balance 700 ml -140 ml -300 ml Intake Oral 700 ml 360 ml Output Urine Total 400 ml 300 ml Stool Total 100 ml # Voids 2 3 Result Diagram: 10/28/1681410/28/16814 Objective Remarks GENERAL: MBMN WF, on Vent SKIN: Warm and dry. HEAD: Normocephalic. EYES: No scleral icterus. No injection or drainage. NECK: Supple, trachea midline. No JVD or lymphadenopathy. CARDIOVASCULAR: Regular rate and rhythm without murmurs, gallops, or rubs. RESPIRATORY: Breath sounds equal bilaterally. No accessory muscle use. GASTROINTESTINAL: Abdomen soft, non-tender, nondistended. Ileostomy MUSCULOSKELETAL: No cyanosis, or edema. BACK: Nontender without obvious deformity. No CVA tenderness. A/P Assessment and Plan VDRF, s/p extubation 10/10 COPD Exac HTN Nicotine use S/p Exp Lap, ileostomy PLAN Abx per ID Duonebs qid Encourage PO. Physical therapy. Stable from pulm standpoint DW pt and BF at BS Available prn over weekend Abdirahman Marquez MD Oct 30, 2016 18:10
[2016-10-30] MEDS: ENOXAPARIN SODIUM 40 MG/0.4 ML SYRINGE SQ SCH (21:35)
[2016-10-31] VITALS (7 sets, daily range): BP systolic 96–150; BP diastolic 53–79; PULSE 79–96; RESP 16–20; TEMP 97.7–98.7; O2SAT 95–98
[2016-10-31] MEDS: RESP: ALBUTEROL 2.5 MG/IPRATROPIUM 0.5 MG NEB (PRN) NEB ×2 (00:27→18:54)
[2016-10-31] MEDS: MELATONIN 5 MG TAB PO PRN (01:03)
[2016-10-31] MEDS: LORazepam 0.5 MG TAB PO PRN ×2 (01:45→16:07)
[2016-10-31] MEDS: SODIUM CHLORIDE 0.9% FLUSH 10 ML FLUSH IV FLUSH SCH ×2 (07:25→21:25)
[2016-10-31] MEDS: RESP: BUDESONIDE 0.5 MG/2 ML NEB NEB SCH ×2 (07:47→20:00)
[2016-10-31] MEDS: CHLORHEXIDINE 0.12% (ORAL KIT) 15 ML CUP MT SCH ×2 (08:00→20:00)
[2016-10-31] MEDS: DILTIAZEM HCL 60 MG TAB PO SCH ×3 (08:11→21:24)
[2016-10-31] MEDS: ACETAMINOPHEN/HYDROcodone 325 MG/5 MG TAB PO PRN ×3 (08:11→21:24)
[2016-10-31] MEDS: PANTOPRAZOLE SOD 20 MG DELAYED RELEASE TAB PO SCH (08:11)
[2016-10-31] MEDS: BENEPROTEIN POWDER 1 PACK G-TUBE SCH ×3 (08:12→16:39)
[2016-10-31] MEDS: POTASSIUM CHLORIDE 20 MEQ CONTROLLED RELEASE TAB PO SCH ×2 (08:12→21:30)
[2016-10-31] MEDS: BUDESONIDE-FORMOTEROL 160/4.5 MCG INHALER INH SCH ×2 (08:12→21:27)
[2016-10-31] MEDS: GABAPENTIN 100 MG CAP PO SCH ×3 (08:13→17:03)
[2016-10-31] MEDS: TIOTROPIUM BROMIDE 18 MCG INH INH SCH (08:13)
--- NOTE | 2016-10-31 10:39 | HHI.PR ---
Subjective Remarks 10/31: Follow up on patient with respiratory distress, COPD, PNA, colonic ileus s/p ileostomy and critical illness polyneuropathy. No complaint, no nausea, vomit or diarrhea. Objective Vital Signs Date Time Temp Pulse Resp B/P (MAP) Pulse Ox O2 Delivery O2 Flow Rate FiO2 10/31/16 09:39 Room Air 21 10/31/16 08:01 98.0 87 19 112/73 (86) 97 10/31/16 07:47 98 10/31/16 04:00 97.7 79 20 150/79 (102) 98 10/31/16 00:21 98.3 96 16 96/58 (71) 97 10/30/16 21:39 Room Air 10/30/16 20:00 98.2 90 16 107/66 (80) 98 10/30/16 19:04 98 21 10/30/16 16:00 97.9 88 20 94/54 (67) 96 10/30/16 12:00 98.1 92 20 138/74 (95) 96 I/O 10/30/16 10/30/16 10/30/16 10/31/16 10/31/16 10/31/16 07:00 15:00 23:00 07:00 15:00 23:00 Intake Total 600 ml 240 ml Output Total 300 ml 300 ml 700 ml Balance -300 ml 300 ml -460 ml Intake Oral 600 ml 240 ml Output Urine Total 300 ml 150 ml 550 ml Stool Total 150 ml 150 ml # Voids 3 Result Diagram: 10/28/1615 10/28/1615 Imaging Last Impressions Chest X-Ray 10/27/16 0000 Signed Impressions: Service Date/Time: Thursday, October 27, 2016 14:49 - CONCLUSION: Normal examination. Jamie Tobin Jr., MD Cervical Spine MRI 10/21/16 0000 Signed Impressions: Service Date/Time: Friday, October 21, 2016 08:43 - CONCLUSION: 1. Motion degraded exam. 2. No acute abnormality. 3. Mild degenerative disc disease without neural impingement. Jamie Tobin Jr., MD Brain MRI 10/21/16 0000 Signed Impressions: Service Date/Time: Friday, October 21, 2016 08:43 - CONCLUSION: 1. Unchanged nonspecific white matter lesions as detailed above. Differential diagnostic considerations remains quite broad. The 2 most likely etiologies would be a demyelinating process such as multiple sclerosus versus chronic small vessel ischemic change. Jamie Tobin Jr., MD Abdomen/Pelvis CT 10/13/16 0000 Signed Impressions: Service Date/Time: Thursday, October 13, 2016 13:13 - CONCLUSION: 1. Pneumoperitoneum likely from the hepatic flexure region of the colon. Pneumatosis was seen in this region on the prior exam. This area now appears thickened. 2. Induration around the pancreas concerning for pancreatitis. 3. New consolidation or atelectasis at the medial left lung base. Oliver Soria MD Abdomen X-Ray 10/12/16 0000 Signed Impressions: Service Date/Time: Wednesday, October 12, 2016 07:42 - CONCLUSION: Nasogastric tube in good position, probably ileus. Rico Boston MD FACR Procedures Endotracheal Intubation and extubation. Expressive Colonoscopy Ileostomy Other Results Laboratory Tests Test 09/25/16 00:00 09/26/16 11:15 10/04/16 08:23 10/05/16 04:49 Nasal Screen MRSA (PCR) MRSA NOT DETECTED Urine Squamous Epithelial Cells <1 /hpf Urine Hyaline Casts 6 /lpf Blood Urea Nitrogen 24 MG/DL Creatinine 0.56 MG/DL Random Glucose 129 MG/DL Total Protein 5.6 GM/DL Albumin 2.5 GM/DL Calcium Level 8.3 MG/DL Phosphorus Level 3.1 MG/DL Magnesium Level 2.7 MG/DL Alkaline Phosphatase 45 U/L Aspartate Amino Transf (AST/SGOT) 41 U/L Alanine Aminotransferase (ALT/SGPT) 74 U/L Total Bilirubin 0.3 MG/DL Direct Bilirubin 0.1 MG/DL Sodium Level 140 MEQ/L Potassium Level 4.0 MEQ/L Chloride Level 100 MEQ/L Carbon Dioxide Level 33.1 MEQ/L Indirect Bilirubin 0.2 MG/DL Thyroid Stimulating Hormone 3rd Gen 0.247 uIU/ML Lactic Acid Level 1.4 mmol/L Total Creatine Kinase 285 U/L Creatine Kinase MB 13.3 NG/ML Creatine Kinase MB % 4.7 % Free Thyroxine 0.74 NG/DL Free Triiodothyronine (T3) pg/dL 0.88 PG/ML Test 10/05/16 12:30 10/05/16 21:00 10/06/16 08:10 10/07/16 05:00 Troponin I 0.04 NG/ML Urine Color YELLOW Urine Turbidity CLEAR Urine pH 5.5 Urine Specific [place] 1.022 Urine Protein TRACE mg/dL Urine Glucose (UA) NEG mg/dL Urine Ketones NEG mg/dL Urine Occult Blood SMALL Urine Nitrite NEG Urine Bilirubin NEG Urine Urobilinogen LESS THAN 2.0 MG/DL Urine Leukocyte Esterase NEG Urine RBC 92 /hpf Urine WBC 3 /hpf Urine Bacteria RARE /hpf Urine Mucus FEW /lpf Microscopic Urinalysis Comment CATH-CULTURE IND Nucleated Red Blood Cells 1 /100 WBC Stool C. difficile Toxin (PCR) NEGATIVE Stl C. difficile Toxin Epiderm 027 PRESUMPTIVE NEGATIVE Test 10/09/16 05:45 10/13/16 14:30 10/13/16 20:04 10/14/16 04:45 Promyelocytes 1 % Toxic Vacuolation PRESENT Prothrombin Time 9.9 SEC Prothromb Time International Ratio 0.9 RATIO Blood Gas Puncture Site ART LINE Blood Gas Patient Temperature 98.6 Blood Gas HCO3 21 mmol/L Blood Gas Base Excess -3.0 mmol/L Blood Gas Oxygen Saturation 97 % Arterial Blood pH 7.40 Arterial Blood Partial Pressure CO2 35 mmHg Arterial Blood Partial Pressure O2 173 mmHg Arterial Blood Oxygen Content 16.7 Vol % Arterial Blood Carboxyhemoglobin 1.4 % Arterial Blood Methemoglobin 1.2 % Blood Gas Hemoglobin 12.0 G/DL Oxygen Delivery Device VENTILATOR Blood Gas Ventilator Setting AC/10/500/PEEP8 Blood Gas Inspired Oxygen 70 % Blood Urea Nitrogen 21 MG/DL Creatinine 0.29 MG/DL Random Glucose 113 MG/DL Total Protein 5.1 GM/DL Albumin 1.9 GM/DL Calcium Level 7.6 MG/DL Phosphorus Level 2.5 MG/DL Magnesium Level 2.1 MG/DL Alkaline Phosphatase 64 U/L Aspartate Amino Transf (AST/SGOT) 142 U/L Alanine Aminotransferase (ALT/SGPT) 362 U/L Total Bilirubin 0.7 MG/DL Sodium Level 137 MEQ/L Potassium Level 4.4 MEQ/L Chloride Level 105 MEQ/L Carbon Dioxide Level 26.4 MEQ/L Amylase Level 95 U/L Lipase 315 U/L Test 10/15/16 05:10 10/19/16 09:05 10/28/16 08:15 Vancomycin Level Trough 9.1 MCG/ML Vitamin B12 Level 621 PG/ML White Blood Count 8.6 TH/MM3 Red Blood Count 3.90 MIL/MM3 Hemoglobin 11.8 GM/DL Hematocrit 34.5 % Mean Corpuscular Volume 88.5 FL Mean Corpuscular Hemoglobin 30.1 PG Mean Corpuscular Hemoglobin Concent 34.1 % Red Cell Distribution Width 13.0 % Platelet Count 295 TH/MM3 Mean Platelet Volume 8.4 FL Neutrophils (%) (Auto) 67.6 % Lymphocytes (%) (Auto) 21.7 % Monocytes (%) (Auto) 8.4 % Eosinophils (%) (Auto) 1.3 % Basophils (%) (Auto) 1.0 % Neutrophils # (Auto) 5.8 TH/MM3 Lymphocytes # (Auto) 1.9 TH/MM3 Monocytes # (Auto) 0.7 TH/MM3 Eosinophils # (Auto) 0.1 TH/MM3 Basophils # (Auto) 0.1 TH/MM3 CBC Comment AUTO DIFF Differential Total Cells Counted 100 Neutrophils % (Manual) 53 % Band Neutrophils % 15 % Lymphocytes % 19 % Monocytes % 7 % Eosinophils % 1 % Basophils % 1 % Neutrophils # (Manual) 6.2 TH/MM3 Metamyelocytes 3 % Myelocytes 1 % Differential Comment FINAL DIFF MANUAL Platelet Estimate NORMAL Platelet Morphology Comment NORMAL Red Cell Morphology Comment NORMAL Blood Urea Nitrogen 7 MG/DL Creatinine 0.29 MG/DL Random Glucose 92 MG/DL Total Protein 6.4 GM/DL Albumin 2.9 GM/DL Calcium Level 9.4 MG/DL Alkaline Phosphatase 117 U/L Aspartate Amino Transf (AST/SGOT) 42 U/L Alanine Aminotransferase (ALT/SGPT) 98 U/L Total Bilirubin 0.5 MG/DL Sodium Level 135 MEQ/L Potassium Level 3.9 MEQ/L Chloride Level 102 MEQ/L Carbon Dioxide Level 22.3 MEQ/L Anion Gap 11 MEQ/L Estimat Glomerular Filtration Rate 239 ML/MIN Objective Remarks GENERAL: NAD, A&Ox3 HEAD: Normocephalic. NECK: Supple, trachea midline. No lymphadenopathy. EYES: No scleral icterus. No injection or drainage. CARDIOVASCULAR: Regular rate and rhythm without murmurs, gallops, or rubs. RESPIRATORY: Breath sounds equal bilaterally. No accessory muscle use. GASTROINTESTINAL: Abdomen soft, non-tender, nondistended. MUSCULOSKELETAL: No cyanosis, or edema. SKIN: Warm and dry. NEURO: Global weakness, weakness of upper and lower extremities greater in the upper extremities, numbness in lower extremities. Medications and IVs Current Medications Medications (Trade) Dose Ordered Sig/Amadou Route Start Time Stop Time Status Last Admin (NS Flush) 2 ml UNSCH PRN IV FLUSH 09/25/16 06:15 10/24/16 03:08 (NS Flush) 2 ml BID IV FLUSH 09/25/16 09:00 10/31/16 07:25 (Narcan Inj) 0.4 mg UNSCH PRN IV 09/25/16 06:15 (Lopressor) 50 mg BID PO 09/25/16 09:00 Future Hold 09/25/16 19:41 (Prinivil) 10 mg DAILY PO 09/25/16 09:00 Future Hold 09/25/16 08:32 (Hydrodiuril) 12.5 mg DAILY PO 09/25/16 09:00 Future Hold 09/25/16 08:32 (Pulmicort Respule Neb) 0.5 mg Q12HR NEB NEB 09/25/16 12:45 10/31/16 07:47 (Spiriva Inh) 18 mcg DAILY INH 09/25/16 12:45 10/31/16 08:13 (Cardizem) 60 mg Q6H PO 09/29/16 14:00 10/31/16 08:11 (Reglan Inj) 10 mg Q8HR IV PUSH 10/01/16 09:00 Future Hold 10/13/16 06:23 (Peridex 0.12% Liq) 15 ml BID@08,20 MT 10/03/16 20:00 10/31/16 08:00 (Apresoline Inj) 10 mg Q1HR PRN IV PUSH 10/04/16 16:00 10/13/16 07:52 (Trandate Inj) 10 mg Q1HR PRN IV PUSH 10/04/16 16:00 (Vasotec Inj) 1.25 mg Q6H PRN IV PUSH 10/04/16 16:00 (Apresoline) 50 mg Q8HR PO 10/13/16 14:00 10/30/16 13:01 (Zofran Inj) 4 mg Q6H PRN IV PUSH 10/13/16 11:15 10/22/16 05:09 (Beneprotein Powder) 1 pack TID G-TUBE 10/14/16 13:00 10/22/16 15:15 (Protonix) 20 mg DAILY PO 10/18/16 09:00 10/31/16 08:11 (KCl) 20 meq Q12HR PO 10/20/16 09:00 10/31/16 08:12 (Neurontin) 100 mg TID PO 10/20/16 18:00 10/31/16 08:13 (Lovenox Inj) 40 mg Q24H SQ 10/22/16 20:00 10/30/16 21:35 (Symbicort 160-4.5 Inh) 1 puff Q12HR INH 10/23/16 21:00 10/31/16 08:12 (Duoneb Neb) 1 ampule Q2HR NEB PRN NEB 10/23/16 15:30 10/31/16 00:27 (Douglas 5-325 Mg) 1 tab Q4H PRN PO 10/28/16 12:15 10/31/16 08:11 (Tylenol) 650 mg Q4H PRN PO 10/28/16 12:15 (Ativan) 0.5 mg Q8H PRN PO 10/28/16 16:15 10/31/16 01:45 (Melatonin) 5 mg HS PRN PO 10/29/16 11:00 10/31/16 01:03 A/P Assessment and Plan 56-year-old female admitted secondary to respiratory distress and COPD and pneumonia. GI complications, now status post ileostomy. Continue physical therapy. C-spine MRI is within normal limits. MRI of brain shows abnormal findings which are not specific (scattered white matter lesions, multiple sclerosis versus ischemic changes). Symbicort and albuterol resumed. Continue to follow patient's neuro status. Paraplegia of unknown etiology Critical Illness Polyneuropathy as per Neurology specialist, secondary to bedridden status plus steroids plus infection MRI brain completed and per Neuro, do not think its MS or cord lesion, also less likely MS as no improvement on steroids. EMG/nerve conduction testing c/w critical illness polyneuropathy/myopathy. Continue participation with PT and OT Continue gabapentin for paresthesias Limit Steroid use and repeat MRI in 2 to 3 months. Acute hypercarbic respiratory failure COPD exacerbation. resolved HCAP, LLL infiltrate, resolved Bronchospasms extubated 10/10 Pulmonary and ID following - stable from pulm standpoint and ID has signed off Continue bronchodilators, Mucolytic and Incentive spirometry Continue Duonebs Oxygen as needed Chest tightness, chronic atypical, worse after meals and with lying supine, fullness after meals unlikely of cardiac origin. Suspect GI etiology CXR 10/27 personally reviewed and is normal examination EKG 10/13 personally reviewed and NSR Echo 09/10/15 EF 55-60%, normal wall motion, PA peak pressure 35mm Hg Recommend patient follow up with GI as outpatient for further evaluation Colonic ileus Status post ileostomy placed 10/13/16 Chronic hemorrhoids Regular diet completed course of Levaquin and Flagyl until 10/24/16 as per ID specialist Surgery following History of tobacco abuse Currently weaned off all nicotine Strongly recommended to stop smoking. Hypertension, controlled continue on Cardizem 60mg q6h and Hydralazine 50mg q8hr Lisinopril and Lopressor on hold due to hypotension Global deconditioning Approximately 22 days in ICU much of which was on a ventilator Continue physical therapy and occupational therapy Patient will need to be able to walk prior to discharge Patients boyfriend plans to interact during therapy sessions to assist patient following discharge Transaminitis trending down monitor as indicated Low TSH, low free T3 and low free T4 unsure of clinical significance especially in light of normal MRI findings recommend repeat as outpatient in 2 months Insomnia trial of Melatonin DVT prophylaxis SCDs Lovenox 40mg sq No changes to anterior assessment awaiting for placement. Discharge Planning Reviewed last CM note 10/26 - patient has no benefits for C or any rehab. Patient is still max assist. She is self pay. Raciel Dorman MD Oct 31, 2016 10:39
[2016-10-31] MEDS: hydrALAZINE HCL 50 MG TAB PO SCH ×2 (13:00→21:23)
[2016-10-31] MEDS: ENOXAPARIN SODIUM 40 MG/0.4 ML SYRINGE SQ SCH (21:24)
[2016-11-01] VITALS (8 sets, daily range): BP systolic 100–118; BP diastolic 57–71; PULSE 74–92; RESP 16–20; TEMP 97.7–98.3; O2SAT 94–97
[2016-11-01] MEDS: LORazepam 0.5 MG TAB PO PRN ×3 (00:36→18:17)
[2016-11-01] MEDS: DILTIAZEM HCL 60 MG TAB PO SCH ×4 (02:00→20:00)
[2016-11-01] MEDS: ACETAMINOPHEN/HYDROcodone 325 MG/5 MG TAB PO PRN ×4 (05:38→20:39)
[2016-11-01] MEDS: hydrALAZINE HCL 50 MG TAB PO SCH ×3 (05:38→20:37)
[2016-11-01] MEDS: RESP: BUDESONIDE 0.5 MG/2 ML NEB NEB SCH ×2 (07:37→19:50)
[2016-11-01] MEDS: CHLORHEXIDINE 0.12% (ORAL KIT) 15 ML CUP MT SCH ×2 (08:00→20:00)
[2016-11-01] MEDS: BENEPROTEIN POWDER 1 PACK G-TUBE SCH ×3 (09:00→13:08)
[2016-11-01] MEDS: TIOTROPIUM BROMIDE 18 MCG INH INH SCH (09:00)
[2016-11-01] MEDS: PANTOPRAZOLE SOD 20 MG DELAYED RELEASE TAB PO SCH (10:15)
[2016-11-01] MEDS: GABAPENTIN 100 MG CAP PO SCH ×3 (10:15→17:27)
[2016-11-01] MEDS: POTASSIUM CHLORIDE 20 MEQ CONTROLLED RELEASE TAB PO SCH ×2 (10:15→20:37)
[2016-11-01] MEDS: BUDESONIDE-FORMOTEROL 160/4.5 MCG INHALER INH SCH ×2 (10:18→20:40)
[2016-11-01] MEDS: SODIUM CHLORIDE 0.9% FLUSH 10 ML FLUSH IV FLUSH SCH ×2 (10:19→20:39)
--- NOTE | 2016-11-01 11:20 | HHI.PR ---
Subjective Remarks 11/01: Follow up on patient with respiratory distress, COPD, PNA, colonic ileus s/p ileostomy and critical illness polyneuropathy. at this time seen in her bedroom in the presence of nurse and her significant other Mr Poncho Aceves. Objective Vital Signs Date Time Temp Pulse Resp B/P (MAP) Pulse Ox O2 Delivery O2 Flow Rate FiO2 11/01/16 08:07 97.9 76 18 117/66 (83) 95 11/01/16 07:39 94 11/01/16 04:00 98.3 74 18 100/57 (71) 97 11/01/16 04:00 Room Air 11/01/16 00:00 Room Air 11/01/16 00:00 98.2 92 16 116/65 (82) 95 10/31/16 20:00 Room Air 10/31/16 20:00 98.7 93 16 112/71 (85) 97 10/31/16 16:01 98.2 80 18 111/53 (72) 96 10/31/16 12:07 98.0 84 18 108/60 (76) 95 I/O 10/31/16 10/31/16 10/31/16 11/01/16 11/01/16 11/01/16 07:00 15:00 23:00 07:00 15:00 23:00 Intake Total 240 ml 360 ml 600 ml Output Total 700 ml 1000 ml 125 ml Balance -460 ml 360 ml -400 ml -125 ml Intake Oral 240 ml 360 ml 600 ml Output Urine Total 550 ml 700 ml Stool Total 150 ml 300 ml 125 ml # Voids 2 # Bowel Movements 0 Result Diagram: 10/28/1681410/28/16814 Imaging Last Impressions Chest X-Ray 10/27/16 0000 Signed Impressions: Service Date/Time: Thursday, October 27, 2016 14:49 - CONCLUSION: Normal examination. Jamie Tobin Jr., MD Cervical Spine MRI 10/21/16 0000 Signed Impressions: Service Date/Time: Friday, October 21, 2016 08:43 - CONCLUSION: 1. Motion degraded exam. 2. No acute abnormality. 3. Mild degenerative disc disease without neural impingement. Jamie Tobin Jr., MD Brain MRI 10/21/16 0000 Signed Impressions: Service Date/Time: Friday, October 21, 2016 08:43 - CONCLUSION: 1. Unchanged nonspecific white matter lesions as detailed above. Differential diagnostic considerations remains quite broad. The 2 most likely etiologies would be a demyelinating process such as multiple sclerosus versus chronic small vessel ischemic change. Jamie Tobin Jr., MD Abdomen/Pelvis CT 10/13/16 0000 Signed Impressions: Service Date/Time: Thursday, October 13, 2016 13:13 - CONCLUSION: 1. Pneumoperitoneum likely from the hepatic flexure region of the colon. Pneumatosis was seen in this region on the prior exam. This area now appears thickened. 2. Induration around the pancreas concerning for pancreatitis. 3. New consolidation or atelectasis at the medial left lung base. Oliver Soria MD Abdomen X-Ray 10/12/16 0000 Signed Impressions: Service Date/Time: Wednesday, October 12, 2016 07:42 - CONCLUSION: Nasogastric tube in good position, probably ileus. Rico Boston MD FACR Procedures Endotracheal Intubation and extubation. Expressive Colonoscopy Ileostomy Other Results Laboratory Tests Test 09/25/16 00:00 09/26/16 11:15 10/04/16 08:23 10/05/16 04:49 Nasal Screen MRSA (PCR) MRSA NOT DETECTED Urine Squamous Epithelial Cells <1 /hpf Urine Hyaline Casts 6 /lpf Blood Urea Nitrogen 24 MG/DL Creatinine 0.56 MG/DL Random Glucose 129 MG/DL Total Protein 5.6 GM/DL Albumin 2.5 GM/DL Calcium Level 8.3 MG/DL Phosphorus Level 3.1 MG/DL Magnesium Level 2.7 MG/DL Alkaline Phosphatase 45 U/L Aspartate Amino Transf (AST/SGOT) 41 U/L Alanine Aminotransferase (ALT/SGPT) 74 U/L Total Bilirubin 0.3 MG/DL Direct Bilirubin 0.1 MG/DL Sodium Level 140 MEQ/L Potassium Level 4.0 MEQ/L Chloride Level 100 MEQ/L Carbon Dioxide Level 33.1 MEQ/L Indirect Bilirubin 0.2 MG/DL Thyroid Stimulating Hormone 3rd Gen 0.247 uIU/ML Lactic Acid Level 1.4 mmol/L Total Creatine Kinase 285 U/L Creatine Kinase MB 13.3 NG/ML Creatine Kinase MB % 4.7 % Free Thyroxine 0.74 NG/DL Free Triiodothyronine (T3) pg/dL 0.88 PG/ML Test 10/05/16 12:30 10/05/16 21:00 10/06/16 08:10 10/07/16 05:00 Troponin I 0.04 NG/ML Urine Color YELLOW Urine Turbidity CLEAR Urine pH 5.5 Urine Specific [place] 1.022 Urine Protein TRACE mg/dL Urine Glucose (UA) NEG mg/dL Urine Ketones NEG mg/dL Urine Occult Blood SMALL Urine Nitrite NEG Urine Bilirubin NEG Urine Urobilinogen LESS THAN 2.0 MG/DL Urine Leukocyte Esterase NEG Urine RBC 92 /hpf Urine WBC 3 /hpf Urine Bacteria RARE /hpf Urine Mucus FEW /lpf Microscopic Urinalysis Comment CATH-CULTURE IND Nucleated Red Blood Cells 1 /100 WBC Stool C. difficile Toxin (PCR) NEGATIVE Stl C. difficile Toxin Epiderm 027 PRESUMPTIVE NEGATIVE Test 10/09/16 05:45 10/13/16 14:30 10/13/16 20:04 10/14/16 04:45 Promyelocytes 1 % Toxic Vacuolation PRESENT Prothrombin Time 9.9 SEC Prothromb Time International Ratio 0.9 RATIO Blood Gas Puncture Site ART LINE Blood Gas Patient Temperature 98.6 Blood Gas HCO3 21 mmol/L Blood Gas Base Excess -3.0 mmol/L Blood Gas Oxygen Saturation 97 % Arterial Blood pH 7.40 Arterial Blood Partial Pressure CO2 35 mmHg Arterial Blood Partial Pressure O2 173 mmHg Arterial Blood Oxygen Content 16.7 Vol % Arterial Blood Carboxyhemoglobin 1.4 % Arterial Blood Methemoglobin 1.2 % Blood Gas Hemoglobin 12.0 G/DL Oxygen Delivery Device VENTILATOR Blood Gas Ventilator Setting AC/10/500/PEEP8 Blood Gas Inspired Oxygen 70 % Blood Urea Nitrogen 21 MG/DL Creatinine 0.29 MG/DL Random Glucose 113 MG/DL Total Protein 5.1 GM/DL Albumin 1.9 GM/DL Calcium Level 7.6 MG/DL Phosphorus Level 2.5 MG/DL Magnesium Level 2.1 MG/DL Alkaline Phosphatase 64 U/L Aspartate Amino Transf (AST/SGOT) 142 U/L Alanine Aminotransferase (ALT/SGPT) 362 U/L Total Bilirubin 0.7 MG/DL Sodium Level 137 MEQ/L Potassium Level 4.4 MEQ/L Chloride Level 105 MEQ/L Carbon Dioxide Level 26.4 MEQ/L Amylase Level 95 U/L Lipase 315 U/L Test 10/15/16 05:10 10/19/16 09:05 10/28/16 08:15 Vancomycin Level Trough 9.1 MCG/ML Vitamin B12 Level 621 PG/ML White Blood Count 8.6 TH/MM3 Red Blood Count 3.90 MIL/MM3 Hemoglobin 11.8 GM/DL Hematocrit 34.5 % Mean Corpuscular Volume 88.5 FL Mean Corpuscular Hemoglobin 30.1 PG Mean Corpuscular Hemoglobin Concent 34.1 % Red Cell Distribution Width 13.0 % Platelet Count 295 TH/MM3 Mean Platelet Volume 8.4 FL Neutrophils (%) (Auto) 67.6 % Lymphocytes (%) (Auto) 21.7 % Monocytes (%) (Auto) 8.4 % Eosinophils (%) (Auto) 1.3 % Basophils (%) (Auto) 1.0 % Neutrophils # (Auto) 5.8 TH/MM3 Lymphocytes # (Auto) 1.9 TH/MM3 Monocytes # (Auto) 0.7 TH/MM3 Eosinophils # (Auto) 0.1 TH/MM3 Basophils # (Auto) 0.1 TH/MM3 CBC Comment AUTO DIFF Differential Total Cells Counted 100 Neutrophils % (Manual) 53 % Band Neutrophils % 15 % Lymphocytes % 19 % Monocytes % 7 % Eosinophils % 1 % Basophils % 1 % Neutrophils # (Manual) 6.2 TH/MM3 Metamyelocytes 3 % Myelocytes 1 % Differential Comment FINAL DIFF MANUAL Platelet Estimate NORMAL Platelet Morphology Comment NORMAL Red Cell Morphology Comment NORMAL Blood Urea Nitrogen 7 MG/DL Creatinine 0.29 MG/DL Random Glucose 92 MG/DL Total Protein 6.4 GM/DL Albumin 2.9 GM/DL Calcium Level 9.4 MG/DL Alkaline Phosphatase 117 U/L Aspartate Amino Transf (AST/SGOT) 42 U/L Alanine Aminotransferase (ALT/SGPT) 98 U/L Total Bilirubin 0.5 MG/DL Sodium Level 135 MEQ/L Potassium Level 3.9 MEQ/L Chloride Level 102 MEQ/L Carbon Dioxide Level 22.3 MEQ/L Anion Gap 11 MEQ/L Estimat Glomerular Filtration Rate 239 ML/MIN Objective Remarks GENERAL: NAD, A&Ox3 HEAD: Normocephalic. NECK: Supple, trachea midline. No lymphadenopathy. EYES: No scleral icterus. No injection or drainage. CARDIOVASCULAR: Regular rate and rhythm without murmurs, gallops, or rubs. RESPIRATORY: Breath sounds equal bilaterally. No accessory muscle use. GASTROINTESTINAL: Abdomen soft, non-tender, nondistended. MUSCULOSKELETAL: No cyanosis, or edema. SKIN: Warm and dry. NEURO: Global weakness, weakness of upper and lower extremities greater in the upper extremities, numbness in lower extremities. Medications and IVs Current Medications Medications (Trade) Dose Ordered Sig/Amadou Route Start Time Stop Time Status Last Admin (NS Flush) 2 ml UNSCH PRN IV FLUSH 09/25/16 06:15 10/24/16 03:08 (NS Flush) 2 ml BID IV FLUSH 09/25/16 09:00 11/01/16 10:19 (Narcan Inj) 0.4 mg UNSCH PRN IV 09/25/16 06:15 (Lopressor) 50 mg BID PO 09/25/16 09:00 Future Hold 09/25/16 19:41 (Prinivil) 10 mg DAILY PO 09/25/16 09:00 Future Hold 09/25/16 08:32 (Hydrodiuril) 12.5 mg DAILY PO 09/25/16 09:00 Future Hold 09/25/16 08:32 (Pulmicort Respule Neb) 0.5 mg Q12HR NEB NEB 09/25/16 12:45 11/01/16 07:37 (Spiriva Inh) 18 mcg DAILY INH 09/25/16 12:45 10/31/16 08:13 (Cardizem) 60 mg Q6H PO 09/29/16 14:00 11/01/16 10:15 (Reglan Inj) 10 mg Q8HR IV PUSH 10/01/16 09:00 Future Hold 10/13/16 06:23 (Peridex 0.12% Liq) 15 ml BID@08,20 MT 10/03/16 20:00 10/31/16 08:00 (Apresoline Inj) 10 mg Q1HR PRN IV PUSH 10/04/16 16:00 10/13/16 07:52 (Trandate Inj) 10 mg Q1HR PRN IV PUSH 10/04/16 16:00 (Vasotec Inj) 1.25 mg Q6H PRN IV PUSH 10/04/16 16:00 (Apresoline) 50 mg Q8HR PO 10/13/16 14:00 10/31/16 21:23 (Zofran Inj) 4 mg Q6H PRN IV PUSH 10/13/16 11:15 10/22/16 05:09 (Beneprotein Powder) 1 pack TID G-TUBE 10/14/16 13:00 10/22/16 15:15 (Protonix) 20 mg DAILY PO 10/18/16 09:00 11/01/16 10:15 (KCl) 20 meq Q12HR PO 10/20/16 09:00 11/01/16 10:15 (Neurontin) 100 mg TID PO 10/20/16 18:00 11/01/16 10:15 (Lovenox Inj) 40 mg Q24H SQ 10/22/16 20:00 10/31/16 21:24 (Symbicort 160-4.5 Inh) 1 puff Q12HR INH 10/23/16 21:00 11/01/16 10:18 (Duoneb Neb) 1 ampule Q2HR NEB PRN NEB 10/23/16 15:30 10/31/16 18:54 ([place] 5-325 Mg) 1 tab Q4H PRN PO 10/28/16 12:15 11/01/16 10:23 (Tylenol) 650 mg Q4H PRN PO 10/28/16 12:15 (Ativan) 0.5 mg Q8H PRN PO 10/28/16 16:15 11/01/16 10:21 (Melatonin) 5 mg HS PRN PO 10/29/16 11:00 10/31/16 01:03 A/P Assessment and Plan 56-year-old female admitted secondary to respiratory distress and COPD and pneumonia. GI complications, now status post ileostomy. Continue physical therapy. C-spine MRI is within normal limits. MRI of brain shows abnormal findings which are not specific (scattered white matter lesions, multiple sclerosis versus ischemic changes). Symbicort and albuterol resumed. Continue to follow patient's neuro status. Paraplegia of unknown etiology Critical Illness Polyneuropathy as per Neurology specialist, secondary to bedridden status plus steroids plus infection MRI brain completed and per Neuro, do not think its MS or cord lesion, also less likely MS as no improvement on steroids. EMG/nerve conduction testing c/w critical illness polyneuropathy/myopathy. Continue participation with PT and OT Continue gabapentin for paresthesias Limit Steroid use and repeat MRI in 2 to 3 months. Acute hypercarbic respiratory failure COPD exacerbation. resolved HCAP, LLL infiltrate, resolved Bronchospasms extubated 10/10 Pulmonary and ID following - stable from pulm standpoint and ID has signed off Continue bronchodilators, Mucolytic and Incentive spirometry Continue Duonebs Oxygen as needed Chest tightness, chronic atypical, worse after meals and with lying supine, fullness after meals unlikely of cardiac origin. Suspect GI etiology CXR 10/27 personally reviewed and is normal examination EKG 10/13 personally reviewed and NSR Echo 09/10/15 EF 55-60%, normal wall motion, PA peak pressure 35mm Hg Recommend patient follow up with GI as outpatient for further evaluation Colonic ileus Status post ileostomy placed 10/13/16 Chronic hemorrhoids Regular diet completed course of Levaquin and Flagyl until 10/24/16 as per ID specialist Surgery following History of tobacco abuse Currently weaned off all nicotine Strongly recommended to stop smoking. Hypertension, controlled continue on Cardizem 60mg q6h and Hydralazine 50mg q8hr Lisinopril and Lopressor on hold due to hypotension Global deconditioning Approximately 22 days in ICU much of which was on a ventilator Continue physical therapy and occupational therapy Patient will need to be able to walk prior to discharge Patients boyfriend plans to interact during therapy sessions to assist patient following discharge Transaminitis trending down monitor as indicated Low TSH, low free T3 and low free T4 unsure of clinical significance especially in light of normal MRI findings recommend repeat as outpatient in 2 months Insomnia trial of Melatonin DVT prophylaxis SCDs Lovenox 40mg sq No changes to anterior assessment awaiting for placement. Next laboratory for November 05 Discharge Planning Reviewed last CM note 10/26 - patient has no benefits for [facility] or any rehab. Patient is still max assist. She is self pay. Raciel Dorman MD Nov 01, 2016 11:20
[2016-11-01] MEDS: RESP: ALBUTEROL 2.5 MG/IPRATROPIUM 0.5 MG NEB (PRN) NEB (12:31)
[2016-11-01] MEDS: ENOXAPARIN SODIUM 40 MG/0.4 ML SYRINGE SQ SCH (20:39)
[2016-11-02] VITALS (11 sets, daily range): BP systolic 103–121; BP diastolic 55–68; PULSE 71–89; RESP 18–20; TEMP 97.5–98.3; O2SAT 95–99
[2016-11-02] MEDS: ACETAMINOPHEN/HYDROcodone 325 MG/5 MG TAB PO PRN ×6 (00:29→21:28)
[2016-11-02] MEDS: MELATONIN 5 MG TAB PO PRN (00:32)
[2016-11-02] MEDS: DILTIAZEM HCL 60 MG TAB PO SCH ×4 (01:34→20:00)
[2016-11-02] MEDS: LORazepam 0.5 MG TAB PO PRN ×3 (01:34→18:11)
[2016-11-02] MEDS: hydrALAZINE HCL 50 MG TAB PO SCH ×3 (06:00→21:59)
[2016-11-02] MEDS: RESP: BUDESONIDE 0.5 MG/2 ML NEB NEB SCH ×2 (07:42→19:49)
[2016-11-02] MEDS: CHLORHEXIDINE 0.12% (ORAL KIT) 15 ML CUP MT SCH ×2 (08:00→20:00)
[2016-11-02] MEDS: BENEPROTEIN POWDER 1 PACK G-TUBE SCH ×3 (09:00→17:28)
--- NOTE | 2016-11-02 09:40 | HHI.PR ---
Subjective Remarks 11/02: Follow up on patient with respiratory distress, COPD, PNA, colonic ileus s/p ileostomy and critical illness polyneuropathy. No changes to present care. patient is trying to get more activity. Objective Vital Signs Date Time Temp Pulse Resp B/P (MAP) Pulse Ox O2 Delivery O2 Flow Rate FiO2 11/02/16 08:00 98.0 71 18 121/56 (77) 96 11/02/16 07:43 96 11/02/16 04:00 Room Air 11/02/16 04:00 98.1 80 19 103/56 (72) 95 11/02/16 01:32 98.1 82 20 117/63 (81) 96 11/02/16 00:01 Room Air 11/02/16 00:00 98.3 86 20 113/55 (74) 96 11/01/16 20:10 Room Air 11/01/16 20:00 98.3 91 20 105/57 (73) 96 11/01/16 17:55 95 21 11/01/16 16:34 97.9 88 18 118/62 (80) 95 11/01/16 12:30 97.7 83 18 116/71 (86) 95 11/01/16 12:00 95 Room Air I/O 11/01/16 11/01/16 11/01/16 11/02/16 11/02/16 11/02/16 07:00 15:00 23:00 07:00 15:00 23:00 Intake Total 600 ml 480 ml 650 ml Output Total 1000 ml 275 ml 750 ml Balance -400 ml -275 ml -270 ml 650 ml Intake Oral 600 ml 480 ml 650 ml Output Urine Total 700 ml 600 ml Stool Total 300 ml 275 ml 150 ml # Voids 1 # Bowel Movements 0 Imaging Last Impressions Chest X-Ray 10/27/16 0000 Signed Impressions: Service Date/Time: Thursday, October 27, 2016 14:49 - CONCLUSION: Normal examination. Jamie Tobin Jr., MD Cervical Spine MRI 10/21/16 0000 Signed Impressions: Service Date/Time: Friday, October 21, 2016 08:43 - CONCLUSION: 1. Motion degraded exam. 2. No acute abnormality. 3. Mild degenerative disc disease without neural impingement. Jamie Tobin Jr., MD Brain MRI 10/21/16 0000 Signed Impressions: Service Date/Time: Friday, October 21, 2016 08:43 - CONCLUSION: 1. Unchanged nonspecific white matter lesions as detailed above. Differential diagnostic considerations remains quite broad. The 2 most likely etiologies would be a demyelinating process such as multiple sclerosus versus chronic small vessel ischemic change. Jamie Tobin Jr., MD Abdomen/Pelvis CT 10/13/16 0000 Signed Impressions: Service Date/Time: Thursday, October 13, 2016 13:13 - CONCLUSION: 1. Pneumoperitoneum likely from the hepatic flexure region of the colon. Pneumatosis was seen in this region on the prior exam. This area now appears thickened. 2. Induration around the pancreas concerning for pancreatitis. 3. New consolidation or atelectasis at the medial left lung base. Oliver Soria MD Abdomen X-Ray 10/12/16 0000 Signed Impressions: Service Date/Time: Wednesday, October 12, 2016 07:42 - CONCLUSION: Nasogastric tube in good position, probably ileus. Rico Boston MD FACR Procedures Endotracheal Intubation and extubation. Expressive Colonoscopy Ileostomy Other Results Laboratory Tests Test 09/25/16 00:00 09/26/16 11:15 10/04/16 08:23 10/05/16 04:49 Nasal Screen MRSA (PCR) MRSA NOT DETECTED Urine Squamous Epithelial Cells <1 /hpf Urine Hyaline Casts 6 /lpf Blood Urea Nitrogen 24 MG/DL Creatinine 0.56 MG/DL Random Glucose 129 MG/DL Total Protein 5.6 GM/DL Albumin 2.5 GM/DL Calcium Level 8.3 MG/DL Phosphorus Level 3.1 MG/DL Magnesium Level 2.7 MG/DL Alkaline Phosphatase 45 U/L Aspartate Amino Transf (AST/SGOT) 41 U/L Alanine Aminotransferase (ALT/SGPT) 74 U/L Total Bilirubin 0.3 MG/DL Direct Bilirubin 0.1 MG/DL Sodium Level 140 MEQ/L Potassium Level 4.0 MEQ/L Chloride Level 100 MEQ/L Carbon Dioxide Level 33.1 MEQ/L Indirect Bilirubin 0.2 MG/DL Thyroid Stimulating Hormone 3rd Gen 0.247 uIU/ML Lactic Acid Level 1.4 mmol/L Total Creatine Kinase 285 U/L Creatine Kinase MB 13.3 NG/ML Creatine Kinase MB % 4.7 % Free Thyroxine 0.74 NG/DL Free Triiodothyronine (T3) pg/dL 0.88 PG/ML Test 10/05/16 12:30 10/05/16 21:00 10/06/16 08:10 10/07/16 05:00 Troponin I 0.04 NG/ML Urine Color YELLOW Urine Turbidity CLEAR Urine pH 5.5 Urine Specific [place] 1.022 Urine Protein TRACE mg/dL Urine Glucose (UA) NEG mg/dL Urine Ketones NEG mg/dL Urine Occult Blood SMALL Urine Nitrite NEG Urine Bilirubin NEG Urine Urobilinogen LESS THAN 2.0 MG/DL Urine Leukocyte Esterase NEG Urine RBC 92 /hpf Urine WBC 3 /hpf Urine Bacteria RARE /hpf Urine Mucus FEW /lpf Microscopic Urinalysis Comment CATH-CULTURE IND Nucleated Red Blood Cells 1 /100 WBC Stool C. difficile Toxin (PCR) NEGATIVE Stl C. difficile Toxin Epiderm 027 PRESUMPTIVE NEGATIVE Test 10/09/16 05:45 10/13/16 14:30 10/13/16 20:04 10/14/16 04:45 Promyelocytes 1 % Toxic Vacuolation PRESENT Prothrombin Time 9.9 SEC Prothromb Time International Ratio 0.9 RATIO Blood Gas Puncture Site ART LINE Blood Gas Patient Temperature 98.6 Blood Gas HCO3 21 mmol/L Blood Gas Base Excess -3.0 mmol/L Blood Gas Oxygen Saturation 97 % Arterial Blood pH 7.40 Arterial Blood Partial Pressure CO2 35 mmHg Arterial Blood Partial Pressure O2 173 mmHg Arterial Blood Oxygen Content 16.7 Vol % Arterial Blood Carboxyhemoglobin 1.4 % Arterial Blood Methemoglobin 1.2 % Blood Gas Hemoglobin 12.0 G/DL Oxygen Delivery Device VENTILATOR Blood Gas Ventilator Setting AC/10/500/PEEP8 Blood Gas Inspired Oxygen 70 % Blood Urea Nitrogen 21 MG/DL Creatinine 0.29 MG/DL Random Glucose 113 MG/DL Total Protein 5.1 GM/DL Albumin 1.9 GM/DL Calcium Level 7.6 MG/DL Phosphorus Level 2.5 MG/DL Magnesium Level 2.1 MG/DL Alkaline Phosphatase 64 U/L Aspartate Amino Transf (AST/SGOT) 142 U/L Alanine Aminotransferase (ALT/SGPT) 362 U/L Total Bilirubin 0.7 MG/DL Sodium Level 137 MEQ/L Potassium Level 4.4 MEQ/L Chloride Level 105 MEQ/L Carbon Dioxide Level 26.4 MEQ/L Amylase Level 95 U/L Lipase 315 U/L Test 10/15/16 05:10 10/19/16 09:05 8/30/17 08:15 Vancomycin Level Trough 9.1 MCG/ML Vitamin B12 Level 621 PG/ML White Blood Count 8.6 TH/MM3 Red Blood Count 3.90 MIL/MM3 Hemoglobin 11.8 GM/DL Hematocrit 34.5 % Mean Corpuscular Volume 88.5 FL Mean Corpuscular Hemoglobin 30.1 PG Mean Corpuscular Hemoglobin Concent 34.1 % Red Cell Distribution Width 13.0 % Platelet Count 295 TH/MM3 Mean Platelet Volume 8.4 FL Neutrophils (%) (Auto) 67.6 % Lymphocytes (%) (Auto) 21.7 % Monocytes (%) (Auto) 8.4 % Eosinophils (%) (Auto) 1.3 % Basophils (%) (Auto) 1.0 % Neutrophils # (Auto) 5.8 TH/MM3 Lymphocytes # (Auto) 1.9 TH/MM3 Monocytes # (Auto) 0.7 TH/MM3 Eosinophils # (Auto) 0.1 TH/MM3 Basophils # (Auto) 0.1 TH/MM3 CBC Comment AUTO DIFF Differential Total Cells Counted 100 Neutrophils % (Manual) 53 % Band Neutrophils % 15 % Lymphocytes % 19 % Monocytes % 7 % Eosinophils % 1 % Basophils % 1 % Neutrophils # (Manual) 6.2 TH/MM3 Metamyelocytes 3 % Myelocytes 1 % Differential Comment FINAL DIFF MANUAL Platelet Estimate NORMAL Platelet Morphology Comment NORMAL Red Cell Morphology Comment NORMAL Blood Urea Nitrogen 7 MG/DL Creatinine 0.29 MG/DL Random Glucose 92 MG/DL Total Protein 6.4 GM/DL Albumin 2.9 GM/DL Calcium Level 9.4 MG/DL Alkaline Phosphatase 117 U/L Aspartate Amino Transf (AST/SGOT) 42 U/L Alanine Aminotransferase (ALT/SGPT) 98 U/L Total Bilirubin 0.5 MG/DL Sodium Level 135 MEQ/L Potassium Level 3.9 MEQ/L Chloride Level 102 MEQ/L Carbon Dioxide Level 22.3 MEQ/L Anion Gap 11 MEQ/L Estimat Glomerular Filtration Rate 239 ML/MIN Objective Remarks GENERAL: NAD, A&Ox3 HEAD: Normocephalic. NECK: Supple, trachea midline. No lymphadenopathy. EYES: No scleral icterus. No injection or drainage. CARDIOVASCULAR: Regular rate and rhythm without murmurs, gallops, or rubs. RESPIRATORY: Breath sounds equal bilaterally. No accessory muscle use. GASTROINTESTINAL: Abdomen soft, non-tender, nondistended. MUSCULOSKELETAL: No cyanosis, or edema. SKIN: Warm and dry. NEURO: Global weakness, weakness of upper and lower extremities greater in the upper extremities, numbness in lower extremities. Medications and IVs Current Medications Medications (Trade) Dose Ordered Sig/Amadou Route Start Time Stop Time Status Last Admin (NS Flush) 2 ml UNSCH PRN IV FLUSH 09/25/16 06:15 10/24/16 03:08 (NS Flush) 2 ml BID IV FLUSH 09/25/16 09:00 11/01/16 20:39 (Narcan Inj) 0.4 mg UNSCH PRN IV 09/25/16 06:15 (Lopressor) 50 mg BID PO 09/25/16 09:00 Future Hold 09/25/16 19:41 (Prinivil) 10 mg DAILY PO 09/25/16 09:00 Future Hold 09/25/16 08:32 (Hydrodiuril) 12.5 mg DAILY PO 09/25/16 09:00 Future Hold 09/25/16 08:32 (Pulmicort Respule Neb) 0.5 mg Q12HR NEB NEB 09/25/16 12:45 11/02/16 07:42 (Spiriva Inh) 18 mcg DAILY INH 09/25/16 12:45 10/31/16 08:13 (Cardizem) 60 mg Q6H PO 09/29/16 14:00 11/02/16 01:34 (Reglan Inj) 10 mg Q8HR IV PUSH 10/01/16 09:00 Future Hold 10/13/16 06:23 (Peridex 0.12% Liq) 15 ml BID@08,20 MT 10/03/16 20:00 10/31/16 08:00 (Apresoline Inj) 10 mg Q1HR PRN IV PUSH 10/04/16 16:00 10/13/16 07:52 (Trandate Inj) 10 mg Q1HR PRN IV PUSH 10/04/16 16:00 (Vasotec Inj) 1.25 mg Q6H PRN IV PUSH 10/04/16 16:00 (Apresoline) 50 mg Q8HR PO 10/13/16 14:00 11/01/16 13:07 (Zofran Inj) 4 mg Q6H PRN IV PUSH 10/13/16 11:15 10/22/16 05:09 (Beneprotein Powder) 1 pack TID G-TUBE 10/14/16 13:00 10/22/16 15:15 (Protonix) 20 mg DAILY PO 10/18/16 09:00 11/01/16 10:15 (KCl) 20 meq Q12HR PO 10/20/16 09:00 11/01/16 20:37 (Neurontin) 100 mg TID PO 10/20/16 18:00 11/01/16 17:27 (Lovenox Inj) 40 mg Q24H SQ 10/22/16 20:00 11/01/16 20:39 (Symbicort 160-4.5 Inh) 1 puff Q12HR INH 10/23/16 21:00 11/01/16 20:40 (Duoneb Neb) 1 ampule Q2HR NEB PRN NEB 10/23/16 15:30 11/01/16 12:31 ([place] 5-325 Mg) 1 tab Q4H PRN PO 10/28/16 12:15 11/02/16 05:28 (Tylenol) 650 mg Q4H PRN PO 10/28/16 12:15 (Ativan) 0.5 mg Q8H PRN PO 10/28/16 16:15 11/02/16 01:34 (Melatonin) 5 mg HS PRN PO 10/29/16 11:00 11/02/16 00:32 A/P Assessment and Plan 56-year-old female admitted secondary to respiratory distress and COPD and pneumonia. GI complications, now status post ileostomy. Continue physical therapy. C-spine MRI is within normal limits. MRI of brain shows abnormal findings which are not specific (scattered white matter lesions, multiple sclerosis versus ischemic changes). Symbicort and albuterol resumed. Continue to follow patient's neuro status. Paraplegia of unknown etiology Critical Illness Polyneuropathy as per Neurology specialist, secondary to bedridden status plus steroids plus infection MRI brain completed and per Neuro, do not think its MS or cord lesion, also less likely MS as no improvement on steroids. EMG/nerve conduction testing c/w critical illness polyneuropathy/myopathy. Continue participation with PT and OT Continue gabapentin for paresthesias Limit Steroid use and repeat MRI in 2 to 3 months. Acute hypercarbic respiratory failure COPD exacerbation. resolved HCAP, LLL infiltrate, resolved Bronchospasms extubated 10/10 Pulmonary and ID following - stable from pulm standpoint and ID has signed off Continue bronchodilators, Mucolytic and Incentive spirometry Continue Duonebs Oxygen as needed Chest tightness, chronic atypical, worse after meals and with lying supine, fullness after meals unlikely of cardiac origin. Suspect GI etiology CXR 10/27 personally reviewed and is normal examination EKG 10/13 personally reviewed and NSR Echo 09/10/15 EF 55-60%, normal wall motion, PA peak pressure 35mm Hg Recommend patient follow up with GI as outpatient for further evaluation Colonic ileus Status post ileostomy placed 10/13/16 Chronic hemorrhoids Regular diet completed course of Levaquin and Flagyl until 10/24/16 as per ID specialist Surgery following History of tobacco abuse Currently weaned off all nicotine Strongly recommended to stop smoking. Hypertension, controlled continue on Cardizem 60mg q6h and Hydralazine 50mg q8hr Lisinopril and Lopressor on hold due to hypotension Global deconditioning Approximately 22 days in ICU much of which was on a ventilator Continue physical therapy and occupational therapy Patient will need to be able to walk prior to discharge Patients boyfriend plans to interact during therapy sessions to assist patient following discharge Transaminitis trending down monitor as indicated Low TSH, low free T3 and low free T4 unsure of clinical significance especially in light of normal MRI findings recommend repeat as outpatient in 2 months Insomnia trial of Melatonin DVT prophylaxis SCDs Lovenox 40mg sq No changes to anterior assessment awaiting for placement. Next laboratory for November 05 Discharge Planning Reviewed last CM note 10/26 - patient has no benefits for [facility] or any rehab. Patient is still max assist. She is self pay. Raciel Dorman MD Nov 02, 2016 09:40
[2016-11-02] MEDS: GABAPENTIN 100 MG CAP PO SCH ×3 (09:50→17:28)
[2016-11-02] MEDS: PANTOPRAZOLE SOD 20 MG DELAYED RELEASE TAB PO SCH (09:50)
[2016-11-02] MEDS: POTASSIUM CHLORIDE 20 MEQ CONTROLLED RELEASE TAB PO SCH ×2 (09:51→21:27)
[2016-11-02] MEDS: SODIUM CHLORIDE 0.9% FLUSH 10 ML FLUSH IV FLUSH SCH ×2 (09:53→21:29)
[2016-11-02] MEDS: TIOTROPIUM BROMIDE 18 MCG INH INH SCH (09:54)
[2016-11-02] MEDS: BUDESONIDE-FORMOTEROL 160/4.5 MCG INHALER INH SCH ×2 (09:55→21:29)
[2016-11-02] MEDS: RESP: ALBUTEROL 2.5 MG/IPRATROPIUM 0.5 MG NEB (PRN) NEB (12:13)
--- NOTE | 2016-11-02 17:20 | HHI.PR ---
Subjective Remarks 56 YOWF with VDRF, , extubated 10/10 no Fever Tolerates PO Appetite good Works with PT No new complaint Objective Vital Signs Vital Signs Date Time Temp Pulse Resp B/P (MAP) Pulse Ox O2 Delivery O2 Flow Rate FiO2 11/02/16 12:14 97 11/02/16 12:00 97.5 89 18 107/68 (81) 96 11/02/16 08:00 98.0 71 18 121/56 (77) 96 11/02/16 07:43 96 11/02/16 07:15 Room Air 11/02/16 04:00 Room Air 11/02/16 04:00 98.1 80 19 103/56 (72) 95 11/02/16 01:32 98.1 82 20 117/63 (81) 96 11/02/16 00:01 Room Air 11/02/16 00:00 98.3 86 20 113/55 (74) 96 11/01/16 20:10 Room Air 11/01/16 20:00 98.3 91 20 105/57 (73) 96 11/01/16 17:55 95 21 I/O 11/01/16 11/01/16 11/01/16 11/02/16 11/02/16 11/02/16 07:00 15:00 23:00 07:00 15:00 23:00 Intake Total 600 ml 480 ml 650 ml Output Total 1000 ml 275 ml 750 ml Balance -400 ml -275 ml -270 ml 650 ml Intake Oral 600 ml 480 ml 650 ml Output Urine Total 700 ml 600 ml Stool Total 300 ml 275 ml 150 ml # Voids 1 2 # Bowel Movements 0 Objective Remarks GENERAL: MBMN WF, on Vent SKIN: Warm and dry. HEAD: Normocephalic. EYES: No scleral icterus. No injection or drainage. NECK: Supple, trachea midline. No JVD or lymphadenopathy. CARDIOVASCULAR: Regular rate and rhythm without murmurs, gallops, or rubs. RESPIRATORY: Breath sounds equal bilaterally. No accessory muscle use. GASTROINTESTINAL: Abdomen soft, non-tender, nondistended. Ileostomy MUSCULOSKELETAL: No cyanosis, or edema. BACK: Nontender without obvious deformity. No CVA tenderness. A/P Assessment and Plan VDRF, s/p extubation 10/10 COPD Exac HTN Nicotine use S/p Exp Lap, ileostomy PLAN Abx per ID Nathaniel qid Encourage PO. Physical therapy. Stable from pulm standpoint Abdirahman Marquez MD Nov 02, 2016 17:20
[2016-11-02] MEDS: ENOXAPARIN SODIUM 40 MG/0.4 ML SYRINGE SQ SCH (21:28)
[2016-11-03] VITALS (11 sets, daily range): BP systolic 89–125; BP diastolic 57–69; PULSE 77–103; RESP 16–20; TEMP 97.3–98.8; O2SAT 94–98
[2016-11-03] MEDS: DILTIAZEM HCL 60 MG TAB PO SCH ×4 (02:00→22:05)
[2016-11-03] MEDS: LORazepam 0.5 MG TAB PO PRN ×3 (03:34→22:09)
[2016-11-03] MEDS: hydrALAZINE HCL 50 MG TAB PO SCH ×3 (06:35→22:05)
[2016-11-03] MEDS: ACETAMINOPHEN/HYDROcodone 325 MG/5 MG TAB PO PRN ×4 (06:35→22:07)
[2016-11-03] MEDS: RESP: ALBUTEROL 2.5 MG/IPRATROPIUM 0.5 MG NEB (PRN) NEB ×3 (07:23→20:01)
[2016-11-03] MEDS: RESP: BUDESONIDE 0.5 MG/2 ML NEB NEB SCH ×2 (08:00→20:00)
[2016-11-03] MEDS: CHLORHEXIDINE 0.12% (ORAL KIT) 15 ML CUP MT SCH ×2 (08:00→20:00)
[2016-11-03] MEDS: GABAPENTIN 100 MG CAP PO SCH ×3 (08:27→17:34)
[2016-11-03] MEDS: POTASSIUM CHLORIDE 20 MEQ CONTROLLED RELEASE TAB PO SCH ×2 (08:27→22:05)
[2016-11-03] MEDS: PANTOPRAZOLE SOD 20 MG DELAYED RELEASE TAB PO SCH (08:28)
[2016-11-03] MEDS: TIOTROPIUM BROMIDE 18 MCG INH INH SCH (09:00)
[2016-11-03] MEDS: SODIUM CHLORIDE 0.9% FLUSH 10 ML FLUSH IV FLUSH SCH ×2 (09:00→22:10)
[2016-11-03] MEDS: BENEPROTEIN POWDER 1 PACK G-TUBE SCH ×3 (09:00→17:34)
[2016-11-03] MEDS: BUDESONIDE-FORMOTEROL 160/4.5 MCG INHALER INH SCH ×2 (09:00→22:10)
--- NOTE | 2016-11-03 09:44 | HHI.PR ---
Subjective Remarks : Follow up on patient with respiratory distress, COPD, PNA, colonic ileus s /p ileostomy and critical illness polyneuropathy. Seen in her bedroom in the presence of her Fiance, no complaint, helping increasing activity. Objective Vital Signs Date Time Temp Pulse Resp B/P (MAP) Pulse Ox O2 Delivery O2 Flow Rate FiO2 11/03/16 08:00 97.7 78 20 125/69 (87) 96 11/03/16 07:27 97 11/03/16 06:21 87 121/60 (80) 11/03/16 04:02 97.7 77 20 109/59 (76) 96 11/03/16 04:00 Room Air 11/03/16 04:00 97.7 77 20 109/59 (76) 96 11/03/16 00:00 Room Air 11/03/16 00:00 98.8 93 18 106/59 (75) 98 11/02/16 21:59 89 114/65 (81) 11/02/16 19:57 Room Air 11/02/16 19:57 98.0 89 18 108/62 (77) 95 11/02/16 19:51 96 11/02/16 18:35 98.0 81 18 120/63 (82) 99 11/02/16 12:14 97 11/02/16 12:00 97.5 89 18 107/68 (81) 96 I/O 11/02/16 11/02/16 11/02/16 11/03/16 11/03/16 11/03/16 06:59 14:59 22:59 06:59 14:59 22:59 Intake Total 650 ml 240 ml Output Total 950 ml Balance 650 ml -710 ml Intake Oral 650 ml 240 ml Output Urine Total 450 ml Stool Total 500 ml # Voids 1 2 Imaging Last Impressions Chest X-Ray 10/27/16 0000 Signed Impressions: Service Date/Time: Thursday, October 27, 2016 14:49 - CONCLUSION: Normal examination. Jamie Tobin Jr., MD Cervical Spine MRI 10/21/16 0000 Signed Impressions: Service Date/Time: Friday, October 21, 2016 08:43 - CONCLUSION: 1. Motion degraded exam. 2. No acute abnormality. 3. Mild degenerative disc disease without neural impingement. Jamie Tobin Jr., MD Brain MRI 10/21/16 0000 Signed Impressions: Service Date/Time: Friday, October 21, 2016 08:43 - CONCLUSION: 1. Unchanged nonspecific white matter lesions as detailed above. Differential diagnostic considerations remains quite broad. The 2 most likely etiologies would be a demyelinating process such as multiple sclerosus versus chronic small vessel ischemic change. Jamie Tobin Jr., MD Abdomen/Pelvis CT 10/13/16 0000 Signed Impressions: Service Date/Time: Thursday, October 13, 2016 13:13 - CONCLUSION: 1. Pneumoperitoneum likely from the hepatic flexure region of the colon. Pneumatosis was seen in this region on the prior exam. This area now appears thickened. 2. Induration around the pancreas concerning for pancreatitis. 3. New consolidation or atelectasis at the medial left lung base. Oliver Soria MD Abdomen X-Ray 10/12/16 0000 Signed Impressions: Service Date/Time: Wednesday, October 12, 2016 07:42 - CONCLUSION: Nasogastric tube in good position, probably ileus. Rico Boston MD FACR Procedures Endotracheal Intubation and extubation. Expressive Colonoscopy Ileostomy Other Results Laboratory Tests Test 09/25/16 00:00 09/26/16 11:15 10/04/16 08:23 10/05/16 04:49 Nasal Screen MRSA (PCR) MRSA NOT DETECTED Urine Squamous Epithelial Cells <1 /hpf Urine Hyaline Casts 6 /lpf Blood Urea Nitrogen 24 MG/DL Creatinine 0.56 MG/DL Random Glucose 129 MG/DL Total Protein 5.6 GM/DL Albumin 2.5 GM/DL Calcium Level 8.3 MG/DL Phosphorus Level 3.1 MG/DL Magnesium Level 2.7 MG/DL Alkaline Phosphatase 45 U/L Aspartate Amino Transf (AST/SGOT) 41 U/L Alanine Aminotransferase (ALT/SGPT) 74 U/L Total Bilirubin 0.3 MG/DL Direct Bilirubin 0.1 MG/DL Sodium Level 140 MEQ/L Potassium Level 4.0 MEQ/L Chloride Level 100 MEQ/L Carbon Dioxide Level 33.1 MEQ/L Indirect Bilirubin 0.2 MG/DL Thyroid Stimulating Hormone 3rd Gen 0.247 uIU/ML Lactic Acid Level 1.4 mmol/L Total Creatine Kinase 285 U/L Creatine Kinase MB 13.3 NG/ML Creatine Kinase MB % 4.7 % Free Thyroxine 0.74 NG/DL Free Triiodothyronine (T3) pg/dL 0.88 PG/ML Test 10/05/16 12:30 10/05/16 21:00 10/06/16 08:10 10/07/16 05:00 Troponin I 0.04 NG/ML Urine Color YELLOW Urine Turbidity CLEAR Urine pH 5.5 Urine Specific [place] 1.022 Urine Protein TRACE mg/dL Urine Glucose (UA) NEG mg/dL Urine Ketones NEG mg/dL Urine Occult Blood SMALL Urine Nitrite NEG Urine Bilirubin NEG Urine Urobilinogen LESS THAN 2.0 MG/DL Urine Leukocyte Esterase NEG Urine RBC 92 /hpf Urine WBC 3 /hpf Urine Bacteria RARE /hpf Urine Mucus FEW /lpf Microscopic Urinalysis Comment CATH-CULTURE IND Nucleated Red Blood Cells 1 /100 WBC Stool C. difficile Toxin (PCR) NEGATIVE Stl C. difficile Toxin Epiderm 027 PRESUMPTIVE NEGATIVE Test 10/09/16 05:45 10/13/16 14:30 10/13/16 20:04 10/14/16 04:45 Promyelocytes 1 % Toxic Vacuolation PRESENT Prothrombin Time 9.9 SEC Prothromb Time International Ratio 0.9 RATIO Blood Gas Puncture Site ART LINE Blood Gas Patient Temperature 98.6 Blood Gas HCO3 21 mmol/L Blood Gas Base Excess -3.0 mmol/L Blood Gas Oxygen Saturation 97 % Arterial Blood pH 7.40 Arterial Blood Partial Pressure CO2 35 mmHg Arterial Blood Partial Pressure O2 173 mmHg Arterial Blood Oxygen Content 16.7 Vol % Arterial Blood Carboxyhemoglobin 1.4 % Arterial Blood Methemoglobin 1.2 % Blood Gas Hemoglobin 12.0 G/DL Oxygen Delivery Device VENTILATOR Blood Gas Ventilator Setting AC/10/500/PEEP8 Blood Gas Inspired Oxygen 70 % Blood Urea Nitrogen 21 MG/DL Creatinine 0.29 MG/DL Random Glucose 113 MG/DL Total Protein 5.1 GM/DL Albumin 1.9 GM/DL Calcium Level 7.6 MG/DL Phosphorus Level 2.5 MG/DL Magnesium Level 2.1 MG/DL Alkaline Phosphatase 64 U/L Aspartate Amino Transf (AST/SGOT) 142 U/L Alanine Aminotransferase (ALT/SGPT) 362 U/L Total Bilirubin 0.7 MG/DL Sodium Level 137 MEQ/L Potassium Level 4.4 MEQ/L Chloride Level 105 MEQ/L Carbon Dioxide Level 26.4 MEQ/L Amylase Level 95 U/L Lipase 315 U/L Test 10/15/16 05:10 10/19/16 09:05 10/28/16 08:15 Vancomycin Level Trough 9.1 MCG/ML Vitamin B12 Level 621 PG/ML White Blood Count 8.6 TH/MM3 Red Blood Count 3.90 MIL/MM3 Hemoglobin 11.8 GM/DL Hematocrit 34.5 % Mean Corpuscular Volume 88.5 FL Mean Corpuscular Hemoglobin 30.1 PG Mean Corpuscular Hemoglobin Concent 34.1 % Red Cell Distribution Width 13.0 % Platelet Count 295 TH/MM3 Mean Platelet Volume 8.4 FL Neutrophils (%) (Auto) 67.6 % Lymphocytes (%) (Auto) 21.7 % Monocytes (%) (Auto) 8.4 % Eosinophils (%) (Auto) 1.3 % Basophils (%) (Auto) 1.0 % Neutrophils # (Auto) 5.8 TH/MM3 Lymphocytes # (Auto) 1.9 TH/MM3 Monocytes # (Auto) 0.7 TH/MM3 Eosinophils # (Auto) 0.1 TH/MM3 Basophils # (Auto) 0.1 TH/MM3 CBC Comment AUTO DIFF Differential Total Cells Counted 100 Neutrophils % (Manual) 53 % Band Neutrophils % 15 % Lymphocytes % 19 % Monocytes % 7 % Eosinophils % 1 % Basophils % 1 % Neutrophils # (Manual) 6.2 TH/MM3 Metamyelocytes 3 % Myelocytes 1 % Differential Comment FINAL DIFF MANUAL Platelet Estimate NORMAL Platelet Morphology Comment NORMAL Red Cell Morphology Comment NORMAL Blood Urea Nitrogen 7 MG/DL Creatinine 0.29 MG/DL Random Glucose 92 MG/DL Total Protein 6.4 GM/DL Albumin 2.9 GM/DL Calcium Level 9.4 MG/DL Alkaline Phosphatase 117 U/L Aspartate Amino Transf (AST/SGOT) 42 U/L Alanine Aminotransferase (ALT/SGPT) 98 U/L Total Bilirubin 0.5 MG/DL Sodium Level 135 MEQ/L Potassium Level 3.9 MEQ/L Chloride Level 102 MEQ/L Carbon Dioxide Level 22.3 MEQ/L Anion Gap 11 MEQ/L Estimat Glomerular Filtration Rate 239 ML/MIN Objective Remarks GENERAL: NAD, A&Ox3 HEAD: Normocephalic. NECK: Supple, trachea midline. No lymphadenopathy. EYES: No scleral icterus. No injection or drainage. CARDIOVASCULAR: Regular rate and rhythm without murmurs, gallops, or rubs. RESPIRATORY: Breath sounds equal bilaterally. No accessory muscle use. GASTROINTESTINAL: Abdomen soft, non-tender, nondistended. MUSCULOSKELETAL: No cyanosis, or edema. SKIN: Warm and dry. NEURO: Global weakness, weakness of upper and lower extremities greater in the upper extremities, numbness in lower extremities. Medications and IVs Current Medications Medications (Trade) Dose Ordered Sig/Amadou Route Start Time Stop Time Status Last Admin (NS Flush) 2 ml UNSCH PRN IV FLUSH 09/25/16 06:15 10/24/16 03:08 (NS Flush) 2 ml BID IV FLUSH 09/25/16 09:00 11/02/16 21:29 (Narcan Inj) 0.4 mg UNSCH PRN IV 09/25/16 06:15 (Lopressor) 50 mg BID PO 09/25/16 09:00 Future Hold 09/25/16 19:41 (Prinivil) 10 mg DAILY PO 09/25/16 09:00 Future Hold 09/25/16 08:32 (Hydrodiuril) 12.5 mg DAILY PO 09/25/16 09:00 Future Hold 09/25/16 08:32 (Pulmicort Respule Neb) 0.5 mg Q12HR NEB NEB 09/25/16 12:45 11/03/16 08:00 (Spiriva Inh) 18 mcg DAILY INH 09/25/16 12:45 11/02/16 09:54 (Cardizem) 60 mg Q6H PO 09/29/16 14:00 11/03/16 08:27 (Reglan Inj) 10 mg Q8HR IV PUSH 10/01/16 09:00 Future Hold 10/13/16 06:23 (Peridex 0.12% Liq) 15 ml BID@08,20 MT 10/03/16 20:00 10/31/16 08:00 (Apresoline Inj) 10 mg Q1HR PRN IV PUSH 10/04/16 16:00 10/13/16 07:52 (Trandate Inj) 10 mg Q1HR PRN IV PUSH 10/04/16 16:00 (Vasotec Inj) 1.25 mg Q6H PRN IV PUSH 10/04/16 16:00 (Apresoline) 50 mg Q8HR PO 10/13/16 14:00 11/03/16 06:35 (Zofran Inj) 4 mg Q6H PRN IV PUSH 10/13/16 11:15 10/22/16 05:09 (Beneprotein Powder) 1 pack TID G-TUBE 10/14/16 13:00 10/22/16 15:15 (Protonix) 20 mg DAILY PO 10/18/16 09:00 11/03/16 08:28 (KCl) 20 meq Q12HR PO 10/20/16 09:00 11/03/16 08:27 (Neurontin) 100 mg TID PO 10/20/16 18:00 11/03/16 08:27 (Lovenox Inj) 40 mg Q24H SQ 10/22/16 20:00 11/02/16 21:28 (Symbicort 160-4.5 Inh) 1 puff Q12HR INH 10/23/16 21:00 11/02/16 21:29 (Duoneb Neb) 1 ampule Q2HR NEB PRN NEB 10/23/16 15:30 11/03/16 07:23 ([place] 5-325 Mg) 1 tab Q4H PRN PO 10/28/16 12:15 11/03/16 06:35 (Tylenol) 650 mg Q4H PRN PO 10/28/16 12:15 (Ativan) 0.5 mg Q8H PRN PO 10/28/16 16:15 11/03/16 03:34 (Melatonin) 5 mg HS PRN PO 10/29/16 11:00 11/02/16 00:32 A/P Assessment and Plan 56-year-old female admitted secondary to respiratory distress and COPD and pneumonia. GI complications, now status post ileostomy. Continue physical therapy. C-spine MRI is within normal limits. MRI of brain shows abnormal findings which are not specific (scattered white matter lesions, multiple sclerosis versus ischemic changes). Symbicort and albuterol resumed. Continue to follow patient's neuro status. Paraplegia of unknown etiology Critical Illness Polyneuropathy as per Neurology specialist, secondary to bedridden status plus steroids plus infection MRI brain completed and per Neuro, do not think its MS or cord lesion, also less likely MS as no improvement on steroids. EMG/nerve conduction testing c/w critical illness polyneuropathy/myopathy. Continue participation with PT and OT Continue gabapentin for paresthesias Limit Steroid use and repeat MRI in 2 to 3 months. Acute hypercarbic respiratory failure COPD exacerbation. resolved HCAP, LLL infiltrate, resolved Bronchospasms extubated 10/10 Pulmonary and ID following - stable from pulm standpoint and ID has signed off Continue bronchodilators, Mucolytic and Incentive spirometry Continue Duonebs Oxygen as needed Chest tightness, chronic atypical, worse after meals and with lying supine, fullness after meals unlikely of cardiac origin. Suspect GI etiology CXR 10/27 personally reviewed and is normal examination EKG 10/13 personally reviewed and NSR Echo 09/10/15 EF 55-60%, normal wall motion, PA peak pressure 35mm Hg Recommend patient follow up with GI as outpatient for further evaluation Colonic ileus Status post ileostomy placed 10/13/16 Chronic hemorrhoids Regular diet completed course of Levaquin and Flagyl until 10/24/16 as per ID specialist Surgery following History of tobacco abuse Currently weaned off all nicotine Strongly recommended to stop smoking. Hypertension, controlled continue on Cardizem 60mg q6h and Hydralazine 50mg q8hr Lisinopril and Lopressor on hold due to hypotension Global deconditioning Approximately 22 days in ICU much of which was on a ventilator Continue physical therapy and occupational therapy Patient will need to be able to walk prior to discharge Patients boyfriend plans to interact during therapy sessions to assist patient following discharge Transaminitis trending down monitor as indicated Low TSH, low free T3 and low free T4 unsure of clinical significance especially in light of normal MRI findings recommend repeat as outpatient in 2 months Insomnia trial of Melatonin DVT prophylaxis SCDs Lovenox 40mg sq No changes to anterior assessment awaiting for placement. Next laboratory for November 05 Discharge Planning Reviewed last CM note 10/26 - patient has no benefits for [facility] or any rehab. Patient is still max assist. She is self pay. Raciel Dorman MD Nov 03, 2016 09:43
--- NOTE | 2016-11-03 12:11 | PD.WCN.NOT ---
Wound Consult Description: Consult placed per Dr Yo for "stoma" Communicated with: Patient Patient significant other at bedside Recommendation: Encouraged patient to begin opening and closing pouch at top to release air. Please call staff for assistance in emptying ileostomy pouch of effluent when 1/ 2-1/3 full Have patient participate when ileostomy care is taking place especially when emptying and changing appliance when strategy specialist is not available Allow patient to watch Ostomy care with her mirror when changing appliance and have significant other observe if available Additional Information: Patient seen on [address] [place] [address] for Ostomy education and assessment. Ostomy Type: Ileostomy Surgeon: Victor Manuel Yo MD Date of Surgery: Oct 13, 2016 Complete: Education materials, Other (patient instructed to call staff when pouch begins to feel heavy or is in need of emptying/releasing air etc.) Educated patient on: Opening pouch at top to release air Participate in the opening and closing of the pouch when effluent is being emptied Additional information Patient states that she is slowly getting stronger and wishes to talk with Dr Yo regarding the reversal of the ileostomy. In the mean time the patient was encouraged to open the appliance at the top and release air with assistance from staff and participate in the emptying of the effluent from the pouch. Nell Nur [facility] Nov 03, 2016 12:11
--- NOTE | 2016-11-03 17:21 | HHI.PR ---
Subjective Remarks C/R Surg POD afebrile, VSS PO better, added fiber/salads, reg diet stoma funct, good pouching Slow progr with PT, almost standing Objective - Vital Signs Date Time Temp Pulse Resp B/P (MAP) Pulse Ox O2 Delivery O2 Flow Rate FiO2 11/03/16 16:00 97.5 85 20 115/67 (83) 98 11/03/16 07:15 Room Air 11/01/16 17:55 21 10/30/16 07:54 3.00 Objective Remarks PE Abd - lg, soft, mild tympany, wound clean some strenght in legs, more ROM A/P Assessment and Plan Imp: Reg diet PT incr, barely OOB, try wheelchair DC plans for rehab , home soon, RTO after rehab for stoma closure Victor Manuel Yo MD Nov 03, 2016 17:21
--- NOTE | 2016-11-03 19:48 | HHI.PR ---
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 [facility] Objective Vital Signs Vital Signs Date Time Temp Pulse Resp B/P (MAP) Pulse Ox O2 Delivery O2 Flow Rate FiO2 11/03/16 16:00 97.5 85 20 115/67 (83) 98 11/03/16 12:30 102/57 (72) 11/03/16 12:00 97.3 103 20 89/62 (71) 97 11/03/16 11:30 94 11/03/16 08:00 97.7 78 20 125/69 (87) 96 11/03/16 07:27 97 11/03/16 07:15 Room Air 11/03/16 06:21 87 121/60 (80) 11/03/16 04:02 97.7 77 20 109/59 (76) 96 11/03/16 04:00 Room Air 11/03/16 04:00 97.7 77 20 109/59 (76) 96 11/03/16 00:00 Room Air 11/03/16 00:00 98.8 93 18 106/59 (75) 98 11/02/16 21:59 89 114/65 (81) 11/02/16 19:57 Room Air 11/02/16 19:57 98.0 89 18 108/62 (77) 95 11/02/16 19:51 96 I/O 11/02/16 11/02/16 11/02/16 11/03/16 11/03/16 11/03/16 07:00 15:00 23:00 07:00 15:00 23:00 Intake Total 650 ml 240 ml 720 ml Output Total 200 ml 750 ml Balance 650 ml -200 ml -510 ml 720 ml Intake Oral 650 ml 240 ml 720 ml Output Urine Total 450 ml Stool Total 200 ml 300 ml # Voids 1 2 2 Objective Remarks GENERAL: MBMN WF, on Vent SKIN: Warm and dry. HEAD: Normocephalic. EYES: No scleral icterus. No injection or drainage. NECK: Supple, trachea midline. No JVD or lymphadenopathy. CARDIOVASCULAR: Regular rate and rhythm without murmurs, gallops, or rubs. RESPIRATORY: Breath sounds equal bilaterally. No accessory muscle use. GASTROINTESTINAL: Abdomen soft, non-tender, nondistended. Ileostomy MUSCULOSKELETAL: No cyanosis, or edema. BACK: Nontender without obvious deformity. No CVA tenderness. A/P Assessment and Plan VDRF, s/p extubation 10/10 COPD Exac HTN Nicotine use S/p Exp Lap, ileostomy PLAN Abx per LESTER Armstrong qid Encourage PO. Physical therapy. Stable from pulm standpoint Abdirahman Marquez MD Nov 03, 2016 19:48
[2016-11-03] MEDS: ENOXAPARIN SODIUM 40 MG/0.4 ML SYRINGE SQ SCH (22:12)
[2016-11-04] VITALS (10 sets, daily range): BP systolic 97–116; BP diastolic 54–73; PULSE 76–93; RESP 12–18; TEMP 97.8–98.3; O2SAT 94–97
[2016-11-04] MEDS: DILTIAZEM HCL 60 MG TAB PO SCH ×4 (02:00→20:00)
[2016-11-04] MEDS: ACETAMINOPHEN/HYDROcodone 325 MG/5 MG TAB PO PRN ×5 (02:30→22:53)
[2016-11-04] MEDS: hydrALAZINE HCL 50 MG TAB PO SCH ×3 (06:00→22:00)
[2016-11-04] MEDS: LORazepam 0.5 MG TAB PO PRN ×3 (06:35→22:59)
[2016-11-04] MEDS: RESP: BUDESONIDE 0.5 MG/2 ML NEB NEB SCH ×2 (07:52→19:11)
[2016-11-04] MEDS: RESP: ALBUTEROL 2.5 MG/IPRATROPIUM 0.5 MG NEB (PRN) NEB ×2 (07:52→11:29)
[2016-11-04] MEDS: CHLORHEXIDINE 0.12% (ORAL KIT) 15 ML CUP MT SCH ×2 (08:00→20:00)
[2016-11-04] MEDS: SODIUM CHLORIDE 0.9% FLUSH 10 ML FLUSH IV FLUSH SCH ×2 (08:11→23:01)
[2016-11-04] MEDS: BENEPROTEIN POWDER 1 PACK G-TUBE SCH ×3 (08:11→15:09)
--- NOTE | 2016-11-04 08:25 | HHI.PR ---
Subjective Remarks 11/04: Follow up on patient with respiratory distress, COPD, PNA, colonic ileus s/p ileostomy and critical illness polyneuropathy. Seen in her bedroom no new complaint at this time working with PT Miss Rodríguez also discussed with nurse Miss Yu. Objective Vital Signs Date Time Temp Pulse Resp B/P (MAP) Pulse Ox O2 Delivery O2 Flow Rate FiO2 11/04/16 06:34 77 108/67 (81) 11/04/16 04:00 98.0 76 12 110/55 (73) 97 11/04/16 02:21 81 97/54 (68) 11/04/16 00:00 98.3 88 14 110/56 (74) 96 11/03/16 20:00 98.0 93 16 117/61 (79) 97 11/03/16 20:00 Room Air 11/03/16 20:00 97 11/03/16 16:00 97.5 85 20 115/67 (83) 98 11/03/16 12:30 102/57 (72) 11/03/16 12:00 97.3 103 20 89/62 (71) 97 11/03/16 11:30 94 I/O 11/03/16 11/03/16 11/03/16 11/04/16 11/04/16 11/04/16 06:59 14:59 22:59 06:59 14:59 22:59 Intake Total 240 ml 720 ml 480 ml Output Total 950 ml 275 ml Balance -710 ml 720 ml 205 ml Intake Oral 240 ml 720 ml 480 ml Output Urine Total 450 ml Stool Total 500 ml 275 ml # Voids 2 Imaging Last Impressions Chest X-Ray 10/27/16 0000 Signed Impressions: Service Date/Time: Thursday, October 27, 2016 14:49 - CONCLUSION: Normal examination. Jamie Tobin Jr., MD Cervical Spine MRI 10/21/16 0000 Signed Impressions: Service Date/Time: Friday, October 21, 2016 08:43 - CONCLUSION: 1. Motion degraded exam. 2. No acute abnormality. 3. Mild degenerative disc disease without neural impingement. Jamie Tobin Jr., MD Brain MRI 10/21/16 0000 Signed Impressions: Service Date/Time: Friday, October 21, 2016 08:43 - CONCLUSION: 1. Unchanged nonspecific white matter lesions as detailed above. Differential diagnostic considerations remains quite broad. The 2 most likely etiologies would be a demyelinating process such as multiple sclerosus versus chronic small vessel ischemic change. Jamie Tobin Jr., MD Abdomen/Pelvis CT 10/13/16 0000 Signed Impressions: Service Date/Time: Thursday, October 13, 2016 13:13 - CONCLUSION: 1. Pneumoperitoneum likely from the hepatic flexure region of the colon. Pneumatosis was seen in this region on the prior exam. This area now appears thickened. 2. Induration around the pancreas concerning for pancreatitis. 3. New consolidation or atelectasis at the medial left lung base. Oliver Soria MD Abdomen X-Ray 10/12/16 0000 Signed Impressions: Service Date/Time: Wednesday, October 12, 2016 07:42 - CONCLUSION: Nasogastric tube in good position, probably ileus. Rico Boston MD FACR Procedures Endotracheal Intubation and extubation. Expressive Colonoscopy Ileostomy Other Results Laboratory Tests Test 09/25/16 00:00 09/26/16 11:15 10/04/16 08:23 10/05/16 04:49 Nasal Screen MRSA (PCR) MRSA NOT DETECTED Urine Squamous Epithelial Cells <1 /hpf Urine Hyaline Casts 6 /lpf Blood Urea Nitrogen 24 MG/DL Creatinine 0.56 MG/DL Random Glucose 129 MG/DL Total Protein 5.6 GM/DL Albumin 2.5 GM/DL Calcium Level 8.3 MG/DL Phosphorus Level 3.1 MG/DL Magnesium Level 2.7 MG/DL Alkaline Phosphatase 45 U/L Aspartate Amino Transf (AST/SGOT) 41 U/L Alanine Aminotransferase (ALT/SGPT) 74 U/L Total Bilirubin 0.3 MG/DL Direct Bilirubin 0.1 MG/DL Sodium Level 140 MEQ/L Potassium Level 4.0 MEQ/L Chloride Level 100 MEQ/L Carbon Dioxide Level 33.1 MEQ/L Indirect Bilirubin 0.2 MG/DL Thyroid Stimulating Hormone 3rd Gen 0.247 uIU/ML Lactic Acid Level 1.4 mmol/L Total Creatine Kinase 285 U/L Creatine Kinase MB 13.3 NG/ML Creatine Kinase MB % 4.7 % Free Thyroxine 0.74 NG/DL Free Triiodothyronine (T3) pg/dL 0.88 PG/ML Test 10/05/16 12:30 10/05/16 21:00 10/06/16 08:10 10/07/16 05:00 Troponin I 0.04 NG/ML Urine Color YELLOW Urine Turbidity CLEAR Urine pH 5.5 Urine Specific [place] 1.022 Urine Protein TRACE mg/dL Urine Glucose (UA) NEG mg/dL Urine Ketones NEG mg/dL Urine Occult Blood SMALL Urine Nitrite NEG Urine Bilirubin NEG Urine Urobilinogen LESS THAN 2.0 MG/DL Urine Leukocyte Esterase NEG Urine RBC 92 /hpf Urine WBC 3 /hpf Urine Bacteria RARE /hpf Urine Mucus FEW /lpf Microscopic Urinalysis Comment CATH-CULTURE IND Nucleated Red Blood Cells 1 /100 WBC Stool C. difficile Toxin (PCR) NEGATIVE Stl C. difficile Toxin Epiderm 027 PRESUMPTIVE NEGATIVE Test 10/09/16 05:45 10/13/16 14:30 10/13/16 20:04 10/14/16 04:45 Promyelocytes 1 % Toxic Vacuolation PRESENT Prothrombin Time 9.9 SEC Prothromb Time International Ratio 0.9 RATIO Blood Gas Puncture Site ART LINE Blood Gas Patient Temperature 98.6 Blood Gas HCO3 21 mmol/L Blood Gas Base Excess -3.0 mmol/L Blood Gas Oxygen Saturation 97 % Arterial Blood pH 7.40 Arterial Blood Partial Pressure CO2 35 mmHg Arterial Blood Partial Pressure O2 173 mmHg Arterial Blood Oxygen Content 16.7 Vol % Arterial Blood Carboxyhemoglobin 1.4 % Arterial Blood Methemoglobin 1.2 % Blood Gas Hemoglobin 12.0 G/DL Oxygen Delivery Device VENTILATOR Blood Gas Ventilator Setting AC/10/500/PEEP8 Blood Gas Inspired Oxygen 70 % Blood Urea Nitrogen 21 MG/DL Creatinine 0.29 MG/DL Random Glucose 113 MG/DL Total Protein 5.1 GM/DL Albumin 1.9 GM/DL Calcium Level 7.6 MG/DL Phosphorus Level 2.5 MG/DL Magnesium Level 2.1 MG/DL Alkaline Phosphatase 64 U/L Aspartate Amino Transf (AST/SGOT) 142 U/L Alanine Aminotransferase (ALT/SGPT) 362 U/L Total Bilirubin 0.7 MG/DL Sodium Level 137 MEQ/L Potassium Level 4.4 MEQ/L Chloride Level 105 MEQ/L Carbon Dioxide Level 26.4 MEQ/L Amylase Level 95 U/L Lipase 315 U/L Test 10/15/16 05:10 10/19/16 09:05 10/28/16 08:15 Vancomycin Level Trough 9.1 MCG/ML Vitamin B12 Level 621 PG/ML White Blood Count 8.6 TH/MM3 Red Blood Count 3.90 MIL/MM3 Hemoglobin 11.8 GM/DL Hematocrit 34.5 % Mean Corpuscular Volume 88.5 FL Mean Corpuscular Hemoglobin 30.1 PG Mean Corpuscular Hemoglobin Concent 34.1 % Red Cell Distribution Width 13.0 % Platelet Count 295 TH/MM3 Mean Platelet Volume 8.4 FL Neutrophils (%) (Auto) 67.6 % Lymphocytes (%) (Auto) 21.7 % Monocytes (%) (Auto) 8.4 % Eosinophils (%) (Auto) 1.3 % Basophils (%) (Auto) 1.0 % Neutrophils # (Auto) 5.8 TH/MM3 Lymphocytes # (Auto) 1.9 TH/MM3 Monocytes # (Auto) 0.7 TH/MM3 Eosinophils # (Auto) 0.1 TH/MM3 Basophils # (Auto) 0.1 TH/MM3 CBC Comment AUTO DIFF Differential Total Cells Counted 100 Neutrophils % (Manual) 53 % Band Neutrophils % 15 % Lymphocytes % 19 % Monocytes % 7 % Eosinophils % 1 % Basophils % 1 % Neutrophils # (Manual) 6.2 TH/MM3 Metamyelocytes 3 % Myelocytes 1 % Differential Comment FINAL DIFF MANUAL Platelet Estimate NORMAL Platelet Morphology Comment NORMAL Red Cell Morphology Comment NORMAL Blood Urea Nitrogen 7 MG/DL Creatinine 0.29 MG/DL Random Glucose 92 MG/DL Total Protein 6.4 GM/DL Albumin 2.9 GM/DL Calcium Level 9.4 MG/DL Alkaline Phosphatase 117 U/L Aspartate Amino Transf (AST/SGOT) 42 U/L Alanine Aminotransferase (ALT/SGPT) 98 U/L Total Bilirubin 0.5 MG/DL Sodium Level 135 MEQ/L Potassium Level 3.9 MEQ/L Chloride Level 102 MEQ/L Carbon Dioxide Level 22.3 MEQ/L Anion Gap 11 MEQ/L Estimat Glomerular Filtration Rate 239 ML/MIN Objective Remarks GENERAL: NAD, A&Ox3 HEAD: Normocephalic. NECK: Supple, trachea midline. No lymphadenopathy. EYES: No scleral icterus. No injection or drainage. CARDIOVASCULAR: Regular rate and rhythm without murmurs, gallops, or rubs. RESPIRATORY: Breath sounds equal bilaterally. No accessory muscle use. GASTROINTESTINAL: Abdomen soft, non-tender, nondistended. MUSCULOSKELETAL: No cyanosis, or edema. SKIN: Warm and dry. NEURO: Global weakness, weakness of upper and lower extremities greater in the upper extremities, numbness in lower extremities. Medications and IVs Current Medications Medications (Trade) Dose Ordered Sig/Amadou Route Start Time Stop Time Status Last Admin (NS Flush) 2 ml UNSCH PRN IV FLUSH 09/25/16 06:15 10/24/16 03:08 (NS Flush) 2 ml BID IV FLUSH 09/25/16 09:00 11/04/16 08:11 (Narcan Inj) 0.4 mg UNSCH PRN IV 09/25/16 06:15 (Lopressor) 50 mg BID PO 09/25/16 09:00 Future Hold 09/25/16 19:41 (Prinivil) 10 mg DAILY PO 09/25/16 09:00 Future Hold 09/25/16 08:32 (Hydrodiuril) 12.5 mg DAILY PO 09/25/16 09:00 Future Hold 09/25/16 08:32 (Pulmicort Respule Neb) 0.5 mg Q12HR NEB NEB 09/25/16 12:45 11/04/16 07:52 (Spiriva Inh) 18 mcg DAILY INH 09/25/16 12:45 11/03/16 09:00 (Cardizem) 60 mg Q6H PO 09/29/16 14:00 11/03/16 22:05 (Reglan Inj) 10 mg Q8HR IV PUSH 10/01/16 09:00 Future Hold 10/13/16 06:23 (Peridex 0.12% Liq) 15 ml BID@08,20 MT 10/03/16 20:00 10/31/16 08:00 (Apresoline Inj) 10 mg Q1HR PRN IV PUSH 10/04/16 16:00 10/13/16 07:52 (Trandate Inj) 10 mg Q1HR PRN IV PUSH 10/04/16 16:00 (Vasotec Inj) 1.25 mg Q6H PRN IV PUSH 10/04/16 16:00 (Apresoline) 50 mg Q8HR PO 10/13/16 14:00 11/03/16 22:05 (Zofran Inj) 4 mg Q6H PRN IV PUSH 10/13/16 11:15 10/22/16 05:09 (Beneprotein Powder) 1 pack TID G-TUBE 10/14/16 13:00 10/22/16 15:15 (Protonix) 20 mg DAILY PO 10/18/16 09:00 11/03/16 08:28 (KCl) 20 meq Q12HR PO 10/20/16 09:00 11/03/16 22:05 (Neurontin) 100 mg TID PO 10/20/16 18:00 11/03/16 17:34 (Lovenox Inj) 40 mg Q24H SQ 10/22/16 20:00 11/03/16 22:12 (Symbicort 160-4.5 Inh) 1 puff Q12HR INH 10/23/16 21:00 11/03/16 22:10 (Duoneb Neb) 1 ampule Q2HR NEB PRN NEB 10/23/16 15:30 11/04/16 07:52 ([place] 5-325 Mg) 1 tab Q4H PRN PO 10/28/16 12:15 11/04/16 06:38 (Tylenol) 650 mg Q4H PRN PO 10/28/16 12:15 (Ativan) 0.5 mg Q8H PRN PO 10/28/16 16:15 11/04/16 06:35 (Melatonin) 5 mg HS PRN PO 10/29/16 11:00 11/02/16 00:32 A/P Assessment and Plan 56-year-old female admitted secondary to respiratory distress and COPD and pneumonia. GI complications, now status post ileostomy. Continue physical therapy. C-spine MRI is within normal limits. MRI of brain shows abnormal findings which are not specific (scattered white matter lesions, multiple sclerosis versus ischemic changes). Symbicort and albuterol resumed. Continue to follow patient's neuro status. Paraplegia of unknown etiology Critical Illness Polyneuropathy as per Neurology specialist, secondary to bedridden status plus steroids plus infection MRI brain completed and per Neuro, do not think its MS or cord lesion, also less likely MS as no improvement on steroids. EMG/nerve conduction testing c/w critical illness polyneuropathy/myopathy. Continue participation with PT and OT Continue gabapentin for paresthesias Limit Steroid use and repeat MRI in 2 to 3 months. Acute hypercarbic respiratory failure COPD exacerbation. resolved HCAP, LLL infiltrate, resolved Bronchospasms extubated 10/10 Pulmonary and ID following - stable from pulm standpoint and ID has signed off Continue bronchodilators, Mucolytic and Incentive spirometry Continue Duonebs Oxygen as needed Chest tightness, chronic atypical, worse after meals and with lying supine, fullness after meals unlikely of cardiac origin. Suspect GI etiology CXR 10/27 personally reviewed and is normal examination EKG 10/13 personally reviewed and NSR Echo 09/10/15 EF 55-60%, normal wall motion, PA peak pressure 35mm Hg Recommend patient follow up with GI as outpatient for further evaluation Colonic ileus Status post ileostomy placed 10/13/16 Chronic hemorrhoids Regular diet completed course of Levaquin and Flagyl until 10/24/16 as per ID specialist Surgery following History of tobacco abuse Currently weaned off all nicotine Strongly recommended to stop smoking. Hypertension, controlled continue on Cardizem 60mg q6h and Hydralazine 50mg q8hr Lisinopril and Lopressor on hold due to hypotension Global deconditioning Approximately 22 days in ICU much of which was on a ventilator Continue physical therapy and occupational therapy Patient will need to be able to walk prior to discharge Patients boyfriend plans to interact during therapy sessions to assist patient following discharge Transaminitis trending down monitor as indicated Low TSH, low free T3 and low free T4 unsure of clinical significance especially in light of normal MRI findings recommend repeat as outpatient in 2 months Insomnia trial of Melatonin DVT prophylaxis SCDs Lovenox 40mg sq No changes to anterior assessment awaiting for placement. Next laboratory for November 05 Discharge Planning Reviewed last CM note 10/26 - patient has no benefits for [facility] or any rehab. Patient is still max assist. She is self pay. Raciel Dorman MD Nov 04, 2016 08:25
[2016-11-04] MEDS: BUDESONIDE-FORMOTEROL 160/4.5 MCG INHALER INH SCH ×2 (08:54→22:55)
[2016-11-04] MEDS: PANTOPRAZOLE SOD 20 MG DELAYED RELEASE TAB PO SCH (08:54)
[2016-11-04] MEDS: TIOTROPIUM BROMIDE 18 MCG INH INH SCH (08:54)
[2016-11-04] MEDS: POTASSIUM CHLORIDE 20 MEQ CONTROLLED RELEASE TAB PO SCH ×2 (08:54→22:53)
[2016-11-04] MEDS: GABAPENTIN 100 MG CAP PO SCH ×3 (08:54→17:16)
--- NOTE | 2016-11-04 10:39 | HHI.PR ---
Subjective Remarks C/R Surg POD afebrile, VSS PO good stoma funct, good pouching Slow progr with PT, almost standing Objective - Vital Signs Date Time Temp Pulse Resp B/P (MAP) Pulse Ox O2 Delivery O2 Flow Rate FiO2 11/04/16 08:00 98.1 77 18 109/73 (85) 96 11/03/16 20:00 Room Air 11/01/16 17:55 21 Objective Remarks PE Abd - soft, wound clean some strenght in legs, more ROM, standing A/P Assessment and Plan Imp: Reg diet PT cont DC plans for rehab , home soon, RTO after rehab for stoma closure Victor Manuel Yo MD Nov 04, 2016 10:39
--- NOTE | 2016-11-04 12:11 | PD.WCN.NOT ---
Wound Consult Description: Consult placed per Dr Yo for "stoma" Communicated with: Patient Patient significant other at bedside Recommendation: Encouraged patient to begin opening and closing pouch at top to release air. Please call staff for assistance in emptying ileostomy pouch of effluent when 1/ 2-1/3 full Have patient participate when ileostomy care is taking place especially when emptying and changing appliance when manager internship is not available Allow patient to watch Ostomy care with her mirror when changing appliance and have significant other observe if available Additional Information: Patient seen on [place] for ostomy teaching and ostomy assessment. Ostomy Type: Ileostomy Surgeon: Victor Manuel Yo MD Date of Surgery: Oct 13, 2016 Complete: Education materials, Other (patient instructed to call staff when pouch begins to feel heavy or is in need of emptying/releasing air etc.) Educated patient on: Ensuring that the pouch is completely closed at the bottom to avoid leaks and odor. Continue to practice opening and closing pouch at the top using the flange. If the pouch and wafer are closed there should be no odor. Additional information Patient seen on [place] for ostomy assessment and further teaching. Patient states that she just got done working with PT and just got back into bed and is trying to catch her breath (which she does). Stoma was visualized and noted to be red, round, moist, functioning with ~75ml orange and green soft thick liquid effluent, long protrusion, with lumen noted at 8 o'clock and measuring 1 1/4". Appliance in size 2 1/4" is intact without leaks. Patient states that she has been drinking gatorade instead of lemonade and her abdomen feels much better, no more burning sensations as previously reported. Patient states that she has released air from the top of the pouch with assistance, however states that when the TAILOR HELPER opened and emptied pouch of effluent that she did not believe that she closed it properly and can smell the odor coming from the pouch. When assessed, the pouch had not been closed properly and was performed with demonstration at this time. Nell Nur [facility] Nov 04, 2016 12:11
[2016-11-04 15:38] LABS: POTASSIUM 3.4 MEQ/L (3.5-5.1)
[2016-11-04 16:19] LABS: BICARBONATE 21.8 MEQ/L (21.0-32.0)
--- NOTE | 2016-11-04 17:44 | HHI.PR ---
Subjective Remarks 56 YOWF with VDRF, , extubated 10/10 no Fever Tolerates PO Appetite good Works with PT Dr.Ritter maned with pt Objective Vital Signs Vital Signs Date Time Temp Pulse Resp B/P (MAP) Pulse Ox O2 Delivery O2 Flow Rate FiO2 11/04/16 16:00 98.1 84 18 114/72 (86) 96 11/04/16 12:00 97.8 88 18 104/62 (76) 95 11/04/16 12:00 Room Air 11/04/16 08:00 98.1 77 18 109/73 (85) 96 11/04/16 08:00 Room Air 11/04/16 07:52 96 11/04/16 06:34 77 108/67 (81) 11/04/16 04:00 98.0 76 12 110/55 (73) 97 11/04/16 02:21 81 97/54 (68) 11/04/16 00:00 98.3 88 14 110/56 (74) 96 11/03/16 20:00 98.0 93 16 117/61 (79) 97 11/03/16 20:00 Room Air 11/03/16 20:00 97 I/O 11/03/16 11/03/16 11/03/16 11/04/16 11/04/16 11/04/16 07:00 15:00 23:00 07:00 15:00 23:00 Intake Total 240 ml 720 ml 480 ml Output Total 750 ml 275 ml Balance -510 ml 720 ml 205 ml Intake Oral 240 ml 720 ml 480 ml Output Urine Total 450 ml Stool Total 300 ml 275 ml # Voids 2 Result Diagram: 11/04/16 1428 Objective Remarks GENERAL: MBMN WF, on Vent SKIN: Warm and dry. HEAD: Normocephalic. EYES: No scleral icterus. No injection or drainage. NECK: Supple, trachea midline. No JVD or lymphadenopathy. CARDIOVASCULAR: Regular rate and rhythm without murmurs, gallops, or rubs. RESPIRATORY: Breath sounds equal bilaterally. No accessory muscle use. GASTROINTESTINAL: Abdomen soft, non-tender, nondistended. Ileostomy MUSCULOSKELETAL: No cyanosis, or edema. BACK: Nontender without obvious deformity. No CVA tenderness. A/P Assessment and Plan VDRF, s/p extubation 10/10 COPD Exac HTN Nicotine use S/p Exp Lap, ileostomy PLAN Abx per ID Duviviana qid Encourage PO. Physical therapy. Stable from pulm standpoint Abdirahman Marquez MD Nov 04, 2016 17:44
[2016-11-04] MEDS: ENOXAPARIN SODIUM 40 MG/0.4 ML SYRINGE SQ SCH (23:03)
[2016-11-05] VITALS (8 sets, daily range): BP systolic 104–118; BP diastolic 56–92; PULSE 73–98; RESP 16–20; TEMP 97.8–98.8; O2SAT 93–98
[2016-11-05] MEDS: DILTIAZEM HCL 60 MG TAB PO SCH ×4 (02:27→20:51)
[2016-11-05] MEDS: ACETAMINOPHEN/HYDROcodone 325 MG/5 MG TAB PO PRN ×4 (03:05→20:52)
[2016-11-05] MEDS: hydrALAZINE HCL 50 MG TAB PO SCH ×3 (06:38→22:54)
[2016-11-05] MEDS: RESP: BUDESONIDE 0.5 MG/2 ML NEB NEB SCH ×2 (07:51→19:13)
[2016-11-05] MEDS: RESP: ALBUTEROL 2.5 MG/IPRATROPIUM 0.5 MG NEB (PRN) NEB ×2 (07:51→11:12)
[2016-11-05] MEDS: CHLORHEXIDINE 0.12% (ORAL KIT) 15 ML CUP MT SCH ×2 (08:00→20:00)
[2016-11-05] MEDS: BENEPROTEIN POWDER 1 PACK G-TUBE SCH ×3 (08:16→14:08)
[2016-11-05] MEDS: LORazepam 0.5 MG TAB PO PRN ×2 (08:17→16:31)
[2016-11-05] MEDS: BUDESONIDE-FORMOTEROL 160/4.5 MCG INHALER INH SCH ×2 (08:17→20:53)
[2016-11-05] MEDS: GABAPENTIN 100 MG CAP PO SCH ×3 (08:17→16:31)
[2016-11-05] MEDS: TIOTROPIUM BROMIDE 18 MCG INH INH SCH (08:17)
[2016-11-05] MEDS: POTASSIUM CHLORIDE 20 MEQ CONTROLLED RELEASE TAB PO SCH ×2 (08:17→20:51)
[2016-11-05] MEDS: PANTOPRAZOLE SOD 20 MG DELAYED RELEASE TAB PO SCH (08:17)
[2016-11-05] MEDS: SODIUM CHLORIDE 0.9% FLUSH 10 ML FLUSH IV FLUSH SCH ×2 (08:17→20:52)
[2016-11-05] MEDS ORDERED: POTASSIUM CHLORIDE 20 MEQ CONTROLLED RELEASE TAB PO ONE ×2 (10:00→12:00)
--- NOTE | 2016-11-05 11:24 | HHI.PR ---
Subjective Remarks 11/05: Follow up on patient with respiratory distress, COPD, PNA, colonic ileus s/p ileostomy and critical illness polyneuropathy. Patient stable no new complaint. Objective Vital Signs Date Time Temp Pulse Resp B/P (MAP) Pulse Ox O2 Delivery O2 Flow Rate FiO2 11/05/16 08:00 97.9 90 16 104/62 (76) 95 11/05/16 07:52 95 21 11/05/16 05:49 98.0 73 16 116/62 (80) 94 11/05/16 00:00 98.4 83 16 117/57 (77) 93 11/04/16 20:00 Room Air 11/04/16 20:00 98.3 93 18 116/65 (82) 94 11/04/16 19:11 96 21 11/04/16 16:00 98.1 84 18 114/72 (86) 96 11/04/16 12:00 97.8 88 18 104/62 (76) 95 11/04/16 12:00 Room Air I/O 11/04/16 11/04/16 11/04/16 11/05/16 11/05/16 11/05/16 07:00 15:00 23:00 07:00 15:00 23:00 Intake Total 480 ml 960 ml 240 ml Output Total 275 ml 150 ml 300 ml Balance 205 ml 810 ml -60 ml Intake Oral 480 ml 960 ml 240 ml Output Urine Total 300 ml Stool Total 275 ml 150 ml # Voids 2 # Bowel Movements 0 Result Diagram: 11/04/16 1428 Imaging Last Impressions Chest X-Ray 10/27/16 0000 Signed Impressions: Service Date/Time: Thursday, October 27, 2016 14:49 - CONCLUSION: Normal examination. Jamie Tobin Jr., MD Cervical Spine MRI 10/21/16 0000 Signed Impressions: Service Date/Time: Friday, October 21, 2016 08:43 - CONCLUSION: 1. Motion degraded exam. 2. No acute abnormality. 3. Mild degenerative disc disease without neural impingement. Jamie Tobin Jr., MD Brain MRI 10/21/16 0000 Signed Impressions: Service Date/Time: Friday, October 21, 2016 08:43 - CONCLUSION: 1. Unchanged nonspecific white matter lesions as detailed above. Differential diagnostic considerations remains quite broad. The 2 most likely etiologies would be a demyelinating process such as multiple sclerosus versus chronic small vessel ischemic change. Jamie Tobin Jr., MD Abdomen/Pelvis CT 10/13/16 0000 Signed Impressions: Service Date/Time: Thursday, October 13, 2016 13:13 - CONCLUSION: 1. Pneumoperitoneum likely from the hepatic flexure region of the colon. Pneumatosis was seen in this region on the prior exam. This area now appears thickened. 2. Induration around the pancreas concerning for pancreatitis. 3. New consolidation or atelectasis at the medial left lung base. Oliver Soria MD Abdomen X-Ray 10/12/16 0000 Signed Impressions: Service Date/Time: Wednesday, October 12, 2016 07:42 - CONCLUSION: Nasogastric tube in good position, probably ileus. Rico Boston MD FACR Procedures Endotracheal Intubation and extubation. Expressive Colonoscopy Ileostomy Other Results Laboratory Tests Test 09/25/16 00:00 09/26/16 11:15 10/04/16 08:23 10/05/16 04:49 Nasal Screen MRSA (PCR) MRSA NOT DETECTED Urine Squamous Epithelial Cells <1 /hpf Urine Hyaline Casts 6 /lpf Blood Urea Nitrogen 24 MG/DL Creatinine 0.56 MG/DL Random Glucose 129 MG/DL Total Protein 5.6 GM/DL Albumin 2.5 GM/DL Calcium Level 8.3 MG/DL Phosphorus Level 3.1 MG/DL Magnesium Level 2.7 MG/DL Alkaline Phosphatase 45 U/L Aspartate Amino Transf (AST/SGOT) 41 U/L Alanine Aminotransferase (ALT/SGPT) 74 U/L Total Bilirubin 0.3 MG/DL Direct Bilirubin 0.1 MG/DL Sodium Level 140 MEQ/L Potassium Level 4.0 MEQ/L Chloride Level 100 MEQ/L Carbon Dioxide Level 33.1 MEQ/L Indirect Bilirubin 0.2 MG/DL Thyroid Stimulating Hormone 3rd Gen 0.247 uIU/ML Lactic Acid Level 1.4 mmol/L Total Creatine Kinase 285 U/L Creatine Kinase MB 13.3 NG/ML Creatine Kinase MB % 4.7 % Free Thyroxine 0.74 NG/DL Free Triiodothyronine (T3) pg/dL 0.88 PG/ML Test 10/05/16 12:30 10/05/16 21:00 10/06/16 08:10 10/07/16 05:00 Troponin I 0.04 NG/ML Urine Color YELLOW Urine Turbidity CLEAR Urine pH 5.5 Urine Specific [place] 1.022 Urine Protein TRACE mg/dL Urine Glucose (UA) NEG mg/dL Urine Ketones NEG mg/dL Urine Occult Blood SMALL Urine Nitrite NEG Urine Bilirubin NEG Urine Urobilinogen LESS THAN 2.0 MG/DL Urine Leukocyte Esterase NEG Urine RBC 92 /hpf Urine WBC 3 /hpf Urine Bacteria RARE /hpf Urine Mucus FEW /lpf Microscopic Urinalysis Comment CATH-CULTURE IND Nucleated Red Blood Cells 1 /100 WBC Stool C. difficile Toxin (PCR) NEGATIVE Stl C. difficile Toxin Epiderm 027 PRESUMPTIVE NEGATIVE Test 10/09/16 05:45 10/13/16 14:30 10/13/16 20:04 10/14/16 04:45 Promyelocytes 1 % Toxic Vacuolation PRESENT Prothrombin Time 9.9 SEC Prothromb Time International Ratio 0.9 RATIO Blood Gas Puncture Site ART LINE Blood Gas Patient Temperature 98.6 Blood Gas HCO3 21 mmol/L Blood Gas Base Excess -3.0 mmol/L Blood Gas Oxygen Saturation 97 % Arterial Blood pH 7.40 Arterial Blood Partial Pressure CO2 35 mmHg Arterial Blood Partial Pressure O2 173 mmHg Arterial Blood Oxygen Content 16.7 Vol % Arterial Blood Carboxyhemoglobin 1.4 % Arterial Blood Methemoglobin 1.2 % Blood Gas Hemoglobin 12.0 G/DL Oxygen Delivery Device VENTILATOR Blood Gas Ventilator Setting AC/10/500/PEEP8 Blood Gas Inspired Oxygen 70 % Blood Urea Nitrogen 21 MG/DL Creatinine 0.29 MG/DL Random Glucose 113 MG/DL Total Protein 5.1 GM/DL Albumin 1.9 GM/DL Calcium Level 7.6 MG/DL Phosphorus Level 2.5 MG/DL Magnesium Level 2.1 MG/DL Alkaline Phosphatase 64 U/L Aspartate Amino Transf (AST/SGOT) 142 U/L Alanine Aminotransferase (ALT/SGPT) 362 U/L Total Bilirubin 0.7 MG/DL Sodium Level 137 MEQ/L Potassium Level 4.4 MEQ/L Chloride Level 105 MEQ/L Carbon Dioxide Level 26.4 MEQ/L Amylase Level 95 U/L Lipase 315 U/L Test 10/15/16 05:10 10/19/16 09:05 10/28/16 08:15 11/04/16 14:28 Vancomycin Level Trough 9.1 MCG/ML Vitamin B12 Level 621 PG/ML White Blood Count 8.6 TH/MM3 Red Blood Count 3.90 MIL/MM3 Hemoglobin 11.8 GM/DL Hematocrit 34.5 % Mean Corpuscular Volume 88.5 FL Mean Corpuscular Hemoglobin 30.1 PG Mean Corpuscular Hemoglobin Concent 34.1 % Red Cell Distribution Width 13.0 % Platelet Count 295 TH/MM3 Mean Platelet Volume 8.4 FL Neutrophils (%) (Auto) 67.6 % Lymphocytes (%) (Auto) 21.7 % Monocytes (%) (Auto) 8.4 % Eosinophils (%) (Auto) 1.3 % Basophils (%) (Auto) 1.0 % Neutrophils # (Auto) 5.8 TH/MM3 Lymphocytes # (Auto) 1.9 TH/MM3 Monocytes # (Auto) 0.7 TH/MM3 Eosinophils # (Auto) 0.1 TH/MM3 Basophils # (Auto) 0.1 TH/MM3 CBC Comment AUTO DIFF Differential Total Cells Counted 100 Neutrophils % (Manual) 53 % Band Neutrophils % 15 % Lymphocytes % 19 % Monocytes % 7 % Eosinophils % 1 % Basophils % 1 % Neutrophils # (Manual) 6.2 TH/MM3 Metamyelocytes 3 % Myelocytes 1 % Differential Comment FINAL DIFF MANUAL Platelet Estimate NORMAL Platelet Morphology Comment NORMAL Red Cell Morphology Comment NORMAL Blood Urea Nitrogen 7 MG/DL 4 MG/DL Creatinine 0.29 MG/DL 0.37 MG/DL Random Glucose 92 MG/DL 122 MG/DL Total Protein 6.4 GM/DL Albumin 2.9 GM/DL Calcium Level 9.4 MG/DL 8.8 MG/DL Alkaline Phosphatase 117 U/L Aspartate Amino Transf (AST/SGOT) 42 U/L Alanine Aminotransferase (ALT/SGPT) 98 U/L Total Bilirubin 0.5 MG/DL Sodium Level 135 MEQ/L 137 MEQ/L Potassium Level 3.9 MEQ/L 3.4 MEQ/L Chloride Level 102 MEQ/L 105 MEQ/L Carbon Dioxide Level 22.3 MEQ/L 21.8 MEQ/L Anion Gap 10 MEQ/L Estimat Glomerular Filtration Rate 181 ML/MIN Objective Remarks GENERAL: NAD, A&Ox3 HEAD: Normocephalic. NECK: Supple, trachea midline. No lymphadenopathy. EYES: No scleral icterus. No injection or drainage. CARDIOVASCULAR: Regular rate and rhythm without murmurs, gallops, or rubs. RESPIRATORY: Breath sounds equal bilaterally. No accessory muscle use. GASTROINTESTINAL: Abdomen soft, non-tender, nondistended. MUSCULOSKELETAL: No cyanosis, or edema. SKIN: Warm and dry. NEURO: Global weakness, weakness of upper and lower extremities greater in the upper extremities, numbness in lower extremities. Medications and IVs Current Medications Medications (Trade) Dose Ordered Sig/Amadou Route Start Time Stop Time Status Last Admin (NS Flush) 2 ml UNSCH PRN IV FLUSH 09/25/16 06:15 10/24/16 03:08 (NS Flush) 2 ml BID IV FLUSH 09/25/16 09:00 11/05/16 08:17 (Narcan Inj) 0.4 mg UNSCH PRN IV 09/25/16 06:15 (Lopressor) 50 mg BID PO 09/25/16 09:00 Future Hold 09/25/16 19:41 (Prinivil) 10 mg DAILY PO 09/25/16 09:00 Future Hold 09/25/16 08:32 (Hydrodiuril) 12.5 mg DAILY PO 09/25/16 09:00 Future Hold 09/25/16 08:32 (Pulmicort Respule Neb) 0.5 mg Q12HR NEB NEB 09/25/16 12:45 11/05/16 07:51 (Spiriva Inh) 18 mcg DAILY INH 09/25/16 12:45 11/05/16 08:17 (Cardizem) 60 mg Q6H PO 09/29/16 14:00 11/05/16 02:27 (Reglan Inj) 10 mg Q8HR IV PUSH 10/01/16 09:00 Future Hold 10/13/16 06:23 (Peridex 0.12% Liq) 15 ml BID@08,20 MT 10/03/16 20:00 10/31/16 08:00 (Apresoline Inj) 10 mg Q1HR PRN IV PUSH 10/04/16 16:00 10/13/16 07:52 (Trandate Inj) 10 mg Q1HR PRN IV PUSH 10/04/16 16:00 (Vasotec Inj) 1.25 mg Q6H PRN IV PUSH 10/04/16 16:00 (Apresoline) 50 mg Q8HR PO 10/13/16 14:00 11/05/16 06:38 (Zofran Inj) 4 mg Q6H PRN IV PUSH 10/13/16 11:15 10/22/16 05:09 (Beneprotein Powder) 1 pack TID G-TUBE 10/14/16 13:00 10/22/16 15:15 (Protonix) 20 mg DAILY PO 10/18/16 09:00 11/05/16 08:17 (KCl) 20 meq Q12HR PO 10/20/16 09:00 11/05/16 08:17 (Neurontin) 100 mg TID PO 10/20/16 18:00 11/05/16 08:17 (Lovenox Inj) 40 mg Q24H SQ 10/22/16 20:00 11/04/16 23:03 (Symbicort 160-4.5 Inh) 1 puff Q12HR INH 10/23/16 21:00 11/05/16 08:17 (Duoneb Neb) 1 ampule Q2HR NEB PRN NEB 10/23/16 15:30 11/05/16 11:12 ([place] 5-325 Mg) 1 tab Q4H PRN PO 10/28/16 12:15 11/05/16 06:38 (Tylenol) 650 mg Q4H PRN PO 10/28/16 12:15 (Ativan) 0.5 mg Q8H PRN PO 10/28/16 16:15 11/05/16 08:17 (Melatonin) 5 mg HS PRN PO 10/29/16 11:00 11/02/16 00:32 (KCl) 20 meq ONCE ONCE PO 11/05/16 12:00 11/05/16 12:01 A/P Assessment and Plan 56-year-old female admitted secondary to respiratory distress and COPD and pneumonia. GI complications, now status post ileostomy. Continue physical therapy. C-spine MRI is within normal limits. MRI of brain shows abnormal findings which are not specific (scattered white matter lesions, multiple sclerosis versus ischemic changes). Symbicort and albuterol resumed. Continue to follow patient's neuro status. Paraplegia of unknown etiology Critical Illness Polyneuropathy as per Neurology specialist, secondary to bedridden status plus steroids plus infection MRI brain completed and per Neuro, do not think its MS or cord lesion, also less likely MS as no improvement on steroids. EMG/nerve conduction testing c/w critical illness polyneuropathy/myopathy. Continue participation with PT and OT Continue gabapentin for paresthesias Limit Steroid use and repeat MRI in 2 to 3 months. Acute hypercarbic respiratory failure COPD exacerbation. resolved HCAP, LLL infiltrate, resolved Bronchospasms extubated 10/10 Pulmonary and ID following - stable from pulm standpoint and ID has signed off Continue bronchodilators, Mucolytic and Incentive spirometry Continue Duonebs Oxygen as needed Chest tightness, chronic atypical, worse after meals and with lying supine, fullness after meals unlikely of cardiac origin. Suspect GI etiology CXR 10/27 personally reviewed and is normal examination EKG 10/13 personally reviewed and NSR Echo 09/10/15 EF 55-60%, normal wall motion, PA peak pressure 35mm Hg Recommend patient follow up with GI as outpatient for further evaluation Colonic ileus Status post ileostomy placed 10/13/16 Chronic hemorrhoids Regular diet completed course of Levaquin and Flagyl until 10/24/16 as per ID specialist Surgery following History of tobacco abuse Currently weaned off all nicotine Strongly recommended to stop smoking. Hypertension, controlled continue on Cardizem 60mg q6h and Hydralazine 50mg q8hr Lisinopril and Lopressor on hold due to hypotension Global deconditioning Approximately 22 days in ICU much of which was on a ventilator Continue physical therapy and occupational therapy Patient will need to be able to walk prior to discharge Patients boyfriend plans to interact during therapy sessions to assist patient following discharge Transaminitis trending down monitor as indicated Low TSH, low free T3 and low free T4 unsure of clinical significance especially in light of normal MRI findings recommend repeat as outpatient in 2 months Insomnia trial of Melatonin DVT prophylaxis SCDs Lovenox 40mg sq No changes to anterior assessment awaiting for placement. Next laboratory for November 05 Discharge Planning Reviewed last CM note 10/26 - patient has no benefits for [facility] or any rehab. Patient is still max assist. She is self pay. Raciel Dorman MD Nov 05, 2016 11:24
--- NOTE | 2016-11-05 15:30 | PD.WCN.NOT ---
Wound Consult Description: Consult placed per Dr Yo for "stoma" Communicated with: ASHLEY Yu Recommendation: Encouraged patient to open and close pouch at top to release air. Please call staff for assistance in emptying ileostomy pouch of effluent when 1/ 2-1/3 full Have patient participate when ileostomy care is taking place especially when emptying and changing appliance when web support engineer is not available Allow patient to watch Ostomy care with her mirror when changing appliance and have significant other observe if available Additional Information: Patient seen on [address] [place] [address] for ostomy teaching and appliance assessment. Ostomy Type: Ileostomy Surgeon: Victor Manuel Yo MD Date of Surgery: Oct 13, 2016 Complete: Education materials, Other (patient instructed to call staff when pouch begins to feel heavy or is in need of emptying/releasing air etc.) Educated patient on: Watching appliance change Continue to practice opening and closing pouch Additional information Appliance was leaking upon arrival to patients room for the second time today. Patient was getting up with PT the first time that scientific writer attempted to see patient this am. Barrier was removed and peristomal skin was cleansed with water and soft washcloth. Peristomal skin was allowed to air dry and then was skin prepped with Cavilon spray and again allowed to dry prior to placing barrier and pouch to stoma. Stoma is functioning with red tinged soft effluent coming from lumen noted at 8-9 o'clock. Stoma is red, round, moist, with long protrusion. Peristomal skin was slightly reddened otherwise unremarkable. Appliance in size 2 1/4" used today with stoma paste, however stoma appears smaller measuring 1" and a size 1 3/4" will be ordered for next appliance change. Nell Nur [facility] Nov 05, 2016 15:30
--- NOTE | 2016-11-05 16:49 | HHI.PR ---
Subjective Remarks 56 YOWF with VDRF, , extubated 10/10 no Fever Tolerates PO Appetite good Works with PT Walked 3 steps with walker Objective Vital Signs Vital Signs Date Time Temp Pulse Resp B/P (MAP) Pulse Ox O2 Delivery O2 Flow Rate FiO2 11/05/16 12:00 97.8 88 16 106/60 (75) 96 11/05/16 12:00 Room Air 11/05/16 08:00 Room Air 11/05/16 08:00 97.9 90 16 104/62 (76) 95 11/05/16 07:52 95 21 11/05/16 05:49 98.0 73 16 116/62 (80) 94 11/05/16 00:00 98.4 83 16 117/57 (77) 93 11/04/16 20:00 Room Air 11/04/16 20:00 98.3 93 18 116/65 (82) 94 11/04/16 19:11 96 21 I/O 11/04/16 11/04/16 11/04/16 11/05/16 11/05/16 11/05/16 07:00 15:00 23:00 07:00 15:00 23:00 Intake Total 480 ml 960 ml 240 ml Output Total 275 ml 150 ml 300 ml Balance 205 ml 810 ml -60 ml Intake Oral 480 ml 960 ml 240 ml Output Urine Total 300 ml Stool Total 275 ml 150 ml # Voids 2 # Bowel Movements 0 Result Diagram: 11/04/16 1428 Objective Remarks GENERAL: MBMN WF, on Vent SKIN: Warm and dry. HEAD: Normocephalic. EYES: No scleral icterus. No injection or drainage. NECK: Supple, trachea midline. No JVD or lymphadenopathy. CARDIOVASCULAR: Regular rate and rhythm without murmurs, gallops, or rubs. RESPIRATORY: Breath sounds equal bilaterally. No accessory muscle use. GASTROINTESTINAL: Abdomen soft, non-tender, nondistended. Ileostomy MUSCULOSKELETAL: No cyanosis, or edema. BACK: Nontender without obvious deformity. No CVA tenderness. A/P Assessment and Plan VDRF, s/p extubation 10/10 COPD Exac HTN Nicotine use S/p Exp Lap, ileostomy PLAN Stable off Abx Duonebs qid Encourage PO. Physical therapy. Stable from pulm standpoint Abdirahman Marquez MD Nov 05, 2016 16:49
[2016-11-05] MEDS: ENOXAPARIN SODIUM 40 MG/0.4 ML SYRINGE SQ SCH (20:53)
[2016-11-06] VITALS (7 sets, daily range): BP systolic 90–135; BP diastolic 53–68; PULSE 79–102; RESP 18–22; TEMP 97.9–98.7; O2SAT 93–96
[2016-11-06] MEDS: LORazepam 0.5 MG TAB PO PRN ×3 (00:26→17:32)
[2016-11-06] MEDS: DILTIAZEM HCL 60 MG TAB PO SCH ×4 (02:11→22:26)
[2016-11-06] MEDS: hydrALAZINE HCL 50 MG TAB PO SCH ×3 (05:20→22:26)
[2016-11-06] MEDS: ACETAMINOPHEN/HYDROcodone 325 MG/5 MG TAB PO PRN ×3 (05:20→22:29)
[2016-11-06] MEDS: CHLORHEXIDINE 0.12% (ORAL KIT) 15 ML CUP MT SCH ×2 (08:00→20:00)
[2016-11-06] MEDS: POTASSIUM CHLORIDE 20 MEQ CONTROLLED RELEASE TAB PO SCH ×2 (08:55→22:27)
[2016-11-06] MEDS: BUDESONIDE-FORMOTEROL 160/4.5 MCG INHALER INH SCH ×2 (08:56→22:28)
[2016-11-06] MEDS: TIOTROPIUM BROMIDE 18 MCG INH INH SCH (08:56)
[2016-11-06] MEDS: PANTOPRAZOLE SOD 20 MG DELAYED RELEASE TAB PO SCH (08:56)
[2016-11-06] MEDS: GABAPENTIN 100 MG CAP PO SCH ×3 (08:56→17:32)
[2016-11-06] MEDS: SODIUM CHLORIDE 0.9% FLUSH 10 ML FLUSH IV FLUSH SCH ×2 (09:00→22:27)
[2016-11-06] MEDS: BENEPROTEIN POWDER 1 PACK G-TUBE SCH ×3 (09:00→17:32)
--- NOTE | 2016-11-06 09:36 | PD.WCN.NOT ---
Wound Consult Description: Consult placed per Dr Yo for "stoma" Communicated with: ASHLEY Mcdonald Recommendation: Encouraged patient to open and close pouch at top to release air. Please call staff for assistance in emptying ileostomy pouch of effluent when 1/ 2-1/3 full Have patient participate when ileostomy care is taking place especially when emptying and changing appliance when retail area manager is not available Allow patient to watch Ostomy care with her mirror when changing appliance and have significant other observe if available Additional Information: Patient seen on [address] [place] [address] for ostomy and appliance assessment Ostomy Type: Ileostomy Surgeon: Victor Manuel Yo MD Date of Surgery: Oct 13, 2016 Complete: Education materials, Other (patient instructed to call staff when pouch begins to feel heavy or is in need of emptying/releasing air etc.) Educated patient on: Opening and closing pouch Emptying pouch of effluent when 1/3-1/2 full Additional information Patient seen on [address] [place] [address] for ostomy and appliance assessment. Stoma is red, round , lumen noted at 8 o'clock and functioning with ~100ml reddish orange soft effluent that was emptied. Appliance intact with date from yesterday when designer/writer changed the barrier and pouch. Nell Nur [facility] Nov 06, 2016 09:36
[2016-11-06] MEDS: RESP: BUDESONIDE 0.5 MG/2 ML NEB NEB SCH ×2 (09:40→19:47)
[2016-11-06] MEDS: RESP: ALBUTEROL 2.5 MG/IPRATROPIUM 0.5 MG NEB (PRN) NEB ×2 (09:40→14:50)
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
--- NOTE | 2016-11-06 14:09 | HHI.PR ---
Subjective Remarks 11/06: Follow up on patient with respiratory distress, COPD, PNA, colonic ileus s/p ileostomy and critical illness polyneuropathy. Seen in her bedroom, no complaint. no nausea, vomit or diarrhea. Objective Vital Signs Date Time Temp Pulse Resp B/P (MAP) Pulse Ox O2 Delivery O2 Flow Rate FiO2 11/06/16 13:00 98.6 87 20 96/53 (67) 94 11/06/16 09:40 94 21 11/06/16 09:26 98.3 79 18 126/65 (85) 96 11/06/16 09:16 Room Air 11/06/16 04:00 97.9 84 20 135/68 (90) 94 11/06/16 00:00 98.4 92 20 130/67 (88) 96 11/05/16 20:00 98.5 98 20 118/92 (101) 95 11/05/16 19:13 98 21 11/05/16 19:00 Room Air 11/05/16 16:00 98.8 94 16 111/56 (74) 94 I/O 11/05/16 11/05/16 11/05/16 11/06/16 11/06/16 11/06/16 06:59 14:59 22:59 06:59 14:59 22:59 Intake Total 240 ml 420 ml Output Total 300 ml 200 ml 100 ml Balance -60 ml 420 ml -200 ml -100 ml Intake Oral 240 ml 420 ml Output Urine Total 300 ml 100 ml Stool Total 100 ml 100 ml # Voids 4 1 # Bowel Movements 0 Result Diagram: 11/04/16 1428 Imaging Last Impressions Chest X-Ray 10/27/16 0000 Signed Impressions: Service Date/Time: Thursday, October 27, 2016 14:49 - CONCLUSION: Normal examination. Jamie Tobin Jr., MD Cervical Spine MRI 10/21/16 0000 Signed Impressions: Service Date/Time: Friday, October 21, 2016 08:43 - CONCLUSION: 1. Motion degraded exam. 2. No acute abnormality. 3. Mild degenerative disc disease without neural impingement. Jamie Tobin Jr., MD Brain MRI 10/21/16 0000 Signed Impressions: Service Date/Time: Friday, October 21, 2016 08:43 - CONCLUSION: 1. Unchanged nonspecific white matter lesions as detailed above. Differential diagnostic considerations remains quite broad. The 2 most likely etiologies would be a demyelinating process such as multiple sclerosus versus chronic small vessel ischemic change. Jamie Tobin Jr., MD Abdomen/Pelvis CT 10/13/16 0000 Signed Impressions: Service Date/Time: Thursday, October 13, 2016 13:13 - CONCLUSION: 1. Pneumoperitoneum likely from the hepatic flexure region of the colon. Pneumatosis was seen in this region on the prior exam. This area now appears thickened. 2. Induration around the pancreas concerning for pancreatitis. 3. New consolidation or atelectasis at the medial left lung base. Oliver Soria MD Abdomen X-Ray 10/12/16 0000 Signed Impressions: Service Date/Time: Wednesday, October 12, 2016 07:42 - CONCLUSION: Nasogastric tube in good position, probably ileus. Rico Boston MD FACR Procedures Endotracheal Intubation and extubation. Expressive Colonoscopy Ileostomy Other Results Laboratory Tests Test 09/25/16 00:00 09/26/16 11:15 10/04/16 08:23 10/05/16 04:49 Nasal Screen MRSA (PCR) MRSA NOT DETECTED Urine Squamous Epithelial Cells <1 /hpf Urine Hyaline Casts 6 /lpf Blood Urea Nitrogen 24 MG/DL Creatinine 0.56 MG/DL Random Glucose 129 MG/DL Total Protein 5.6 GM/DL Albumin 2.5 GM/DL Calcium Level 8.3 MG/DL Phosphorus Level 3.1 MG/DL Magnesium Level 2.7 MG/DL Alkaline Phosphatase 45 U/L Aspartate Amino Transf (AST/SGOT) 41 U/L Alanine Aminotransferase (ALT/SGPT) 74 U/L Total Bilirubin 0.3 MG/DL Direct Bilirubin 0.1 MG/DL Sodium Level 140 MEQ/L Potassium Level 4.0 MEQ/L Chloride Level 100 MEQ/L Carbon Dioxide Level 33.1 MEQ/L Indirect Bilirubin 0.2 MG/DL Thyroid Stimulating Hormone 3rd Gen 0.247 uIU/ML Lactic Acid Level 1.4 mmol/L Total Creatine Kinase 285 U/L Creatine Kinase MB 13.3 NG/ML Creatine Kinase MB % 4.7 % Free Thyroxine 0.74 NG/DL Free Triiodothyronine (T3) pg/dL 0.88 PG/ML Test 10/05/16 12:30 10/05/16 21:00 10/06/16 08:10 10/07/16 05:00 Troponin I 0.04 NG/ML Urine Color YELLOW Urine Turbidity CLEAR Urine pH 5.5 Urine Specific [place] 1.022 Urine Protein TRACE mg/dL Urine Glucose (UA) NEG mg/dL Urine Ketones NEG mg/dL Urine Occult Blood SMALL Urine Nitrite NEG Urine Bilirubin NEG Urine Urobilinogen LESS THAN 2.0 MG/DL Urine Leukocyte Esterase NEG Urine RBC 92 /hpf Urine WBC 3 /hpf Urine Bacteria RARE /hpf Urine Mucus FEW /lpf Microscopic Urinalysis Comment CATH-CULTURE IND Nucleated Red Blood Cells 1 /100 WBC Stool C. difficile Toxin (PCR) NEGATIVE Stl C. difficile Toxin Epiderm 027 PRESUMPTIVE NEGATIVE Test 10/09/16 05:45 10/13/16 14:30 10/13/16 20:04 10/14/16 04:45 Promyelocytes 1 % Toxic Vacuolation PRESENT Prothrombin Time 9.9 SEC Prothromb Time International Ratio 0.9 RATIO Blood Gas Puncture Site ART LINE Blood Gas Patient Temperature 98.6 Blood Gas HCO3 21 mmol/L Blood Gas Base Excess -3.0 mmol/L Blood Gas Oxygen Saturation 97 % Arterial Blood pH 7.40 Arterial Blood Partial Pressure CO2 35 mmHg Arterial Blood Partial Pressure O2 173 mmHg Arterial Blood Oxygen Content 16.7 Vol % Arterial Blood Carboxyhemoglobin 1.4 % Arterial Blood Methemoglobin 1.2 % Blood Gas Hemoglobin 12.0 G/DL Oxygen Delivery Device VENTILATOR Blood Gas Ventilator Setting AC/10/500/PEEP8 Blood Gas Inspired Oxygen 70 % Blood Urea Nitrogen 21 MG/DL Creatinine 0.29 MG/DL Random Glucose 113 MG/DL Total Protein 5.1 GM/DL Albumin 1.9 GM/DL Calcium Level 7.6 MG/DL Phosphorus Level 2.5 MG/DL Magnesium Level 2.1 MG/DL Alkaline Phosphatase 64 U/L Aspartate Amino Transf (AST/SGOT) 142 U/L Alanine Aminotransferase (ALT/SGPT) 362 U/L Total Bilirubin 0.7 MG/DL Sodium Level 137 MEQ/L Potassium Level 4.4 MEQ/L Chloride Level 105 MEQ/L Carbon Dioxide Level 26.4 MEQ/L Amylase Level 95 U/L Lipase 315 U/L Test 10/15/16 05:10 10/19/16 09:05 10/28/16 08:15 11/04/16 14:28 Vancomycin Level Trough 9.1 MCG/ML Vitamin B12 Level 621 PG/ML White Blood Count 8.6 TH/MM3 Red Blood Count 3.90 MIL/MM3 Hemoglobin 11.8 GM/DL Hematocrit 34.5 % Mean Corpuscular Volume 88.5 FL Mean Corpuscular Hemoglobin 30.1 PG Mean Corpuscular Hemoglobin Concent 34.1 % Red Cell Distribution Width 13.0 % Platelet Count 295 TH/MM3 Mean Platelet Volume 8.4 FL Neutrophils (%) (Auto) 67.6 % Lymphocytes (%) (Auto) 21.7 % Monocytes (%) (Auto) 8.4 % Eosinophils (%) (Auto) 1.3 % Basophils (%) (Auto) 1.0 % Neutrophils # (Auto) 5.8 TH/MM3 Lymphocytes # (Auto) 1.9 TH/MM3 Monocytes # (Auto) 0.7 TH/MM3 Eosinophils # (Auto) 0.1 TH/MM3 Basophils # (Auto) 0.1 TH/MM3 CBC Comment AUTO DIFF Differential Total Cells Counted 100 Neutrophils % (Manual) 53 % Band Neutrophils % 15 % Lymphocytes % 19 % Monocytes % 7 % Eosinophils % 1 % Basophils % 1 % Neutrophils # (Manual) 6.2 TH/MM3 Metamyelocytes 3 % Myelocytes 1 % Differential Comment FINAL DIFF MANUAL Platelet Estimate NORMAL Platelet Morphology Comment NORMAL Red Cell Morphology Comment NORMAL Blood Urea Nitrogen 7 MG/DL 4 MG/DL Creatinine 0.29 MG/DL 0.37 MG/DL Random Glucose 92 MG/DL 122 MG/DL Total Protein 6.4 GM/DL Albumin 2.9 GM/DL Calcium Level 9.4 MG/DL 8.8 MG/DL Alkaline Phosphatase 117 U/L Aspartate Amino Transf (AST/SGOT) 42 U/L Alanine Aminotransferase (ALT/SGPT) 98 U/L Total Bilirubin 0.5 MG/DL Sodium Level 135 MEQ/L 137 MEQ/L Potassium Level 3.9 MEQ/L 3.4 MEQ/L Chloride Level 102 MEQ/L 105 MEQ/L Carbon Dioxide Level 22.3 MEQ/L 21.8 MEQ/L Anion Gap 10 MEQ/L Estimat Glomerular Filtration Rate 181 ML/MIN Objective Remarks GENERAL: NAD, A&Ox3 HEAD: Normocephalic. NECK: Supple, trachea midline. No lymphadenopathy. EYES: No scleral icterus. No injection or drainage. CARDIOVASCULAR: Regular rate and rhythm without murmurs, gallops, or rubs. RESPIRATORY: Breath sounds equal bilaterally. No accessory muscle use. GASTROINTESTINAL: Abdomen soft, non-tender, nondistended. ostomy in place. MUSCULOSKELETAL: No cyanosis, or edema. SKIN: Warm and dry. NEURO: Global weakness, weakness of upper and lower extremities greater in the upper extremities, numbness in lower extremities. Medications and IVs Current Medications Medications (Trade) Dose Ordered Sig/Amadou Route Start Time Stop Time Status Last Admin (NS Flush) 2 ml UNSCH PRN IV FLUSH 09/25/16 06:15 10/24/16 03:08 (NS Flush) 2 ml BID IV FLUSH 09/25/16 09:00 11/06/16 09:00 (Narcan Inj) 0.4 mg UNSCH PRN IV 09/25/16 06:15 (Lopressor) 50 mg BID PO 09/25/16 09:00 Future Hold 09/25/16 19:41 (Prinivil) 10 mg DAILY PO 09/25/16 09:00 Future Hold 09/25/16 08:32 (Hydrodiuril) 12.5 mg DAILY PO 09/25/16 09:00 Future Hold 09/25/16 08:32 (Pulmicort Respule Neb) 0.5 mg Q12HR NEB NEB 09/25/16 12:45 11/06/16 09:40 (Spiriva Inh) 18 mcg DAILY INH 09/25/16 12:45 11/06/16 08:56 (Cardizem) 60 mg Q6H PO 09/29/16 14:00 11/06/16 13:41 (Reglan Inj) 10 mg Q8HR IV PUSH 10/01/16 09:00 Future Hold 10/13/16 06:23 (Peridex 0.12% Liq) 15 ml BID@08,20 MT 10/03/16 20:00 10/31/16 08:00 (Apresoline Inj) 10 mg Q1HR PRN IV PUSH 10/04/16 16:00 10/13/16 07:52 (Trandate Inj) 10 mg Q1HR PRN IV PUSH 10/04/16 16:00 (Vasotec Inj) 1.25 mg Q6H PRN IV PUSH 10/04/16 16:00 (Apresoline) 50 mg Q8HR PO 10/13/16 14:00 11/06/16 13:41 (Zofran Inj) 4 mg Q6H PRN IV PUSH 10/13/16 11:15 10/22/16 05:09 (Beneprotein Powder) 1 pack TID G-TUBE 10/14/16 13:00 11/06/16 13:00 (Protonix) 20 mg DAILY PO 10/18/16 09:00 11/06/16 08:56 (KCl) 20 meq Q12HR PO 10/20/16 09:00 11/06/16 08:55 (Neurontin) 100 mg TID PO 10/20/16 18:00 11/06/16 13:41 (Lovenox Inj) 40 mg Q24H SQ 10/22/16 20:00 11/05/16 20:53 (Symbicort 160-4.5 Inh) 1 puff Q12HR INH 10/23/16 21:00 11/06/16 08:56 (Duoneb Neb) 1 ampule Q2HR NEB PRN NEB 10/23/16 15:30 11/06/16 09:40 ([place] 5-325 Mg) 1 tab Q4H PRN PO 10/28/16 12:15 11/06/16 05:20 (Tylenol) 650 mg Q4H PRN PO 10/28/16 12:15 (Ativan) 0.5 mg Q8H PRN PO 10/28/16 16:15 11/06/16 09:03 (Melatonin) 5 mg HS PRN PO 10/29/16 11:00 11/02/16 00:32 A/P Assessment and Plan 56-year-old female admitted secondary to respiratory distress and COPD and pneumonia. GI complications, now status post ileostomy. Continue physical therapy. C-spine MRI is within normal limits. MRI of brain shows abnormal findings which are not specific (scattered white matter lesions, multiple sclerosis versus ischemic changes). Symbicort and albuterol resumed. Continue to follow patient's neuro status. Paraplegia of unknown etiology Critical Illness Polyneuropathy as per Neurology specialist, secondary to bedridden status plus steroids plus infection MRI brain completed and per Neuro, do not think its MS or cord lesion, also less likely MS as no improvement on steroids. EMG/nerve conduction testing c/w critical illness polyneuropathy/myopathy. Continue participation with PT and OT Continue gabapentin for paresthesias Limit Steroid use and repeat MRI in 2 to 3 months. Acute hypercarbic respiratory failure COPD exacerbation. resolved HCAP, LLL infiltrate, resolved Bronchospasms extubated 10/10 Pulmonary and ID following - stable from pulm standpoint and ID has signed off Continue bronchodilators, Mucolytic and Incentive spirometry Continue Duonebs Oxygen as needed Chest tightness, chronic atypical, worse after meals and with lying supine, fullness after meals unlikely of cardiac origin. Suspect GI etiology CXR 10/27 personally reviewed and is normal examination EKG 10/13 personally reviewed and NSR Echo 09/10/15 EF 55-60%, normal wall motion, PA peak pressure 35mm Hg Recommend patient follow up with GI as outpatient for further evaluation Colonic ileus Status post ileostomy placed 10/13/16 Chronic hemorrhoids Regular diet completed course of Levaquin and Flagyl until 10/24/16 as per ID specialist Surgery following History of tobacco abuse Currently weaned off all nicotine Strongly recommended to stop smoking. Hypertension, controlled continue on Cardizem 60mg q6h and Hydralazine 50mg q8hr Lisinopril and Lopressor on hold due to hypotension Global deconditioning Approximately 22 days in ICU much of which was on a ventilator Continue physical therapy and occupational therapy Patient will need to be able to walk prior to discharge Patients boyfriend plans to interact during therapy sessions to assist patient following discharge Transaminitis trending down monitor as indicated Low TSH, low free T3 and low free T4 unsure of clinical significance especially in light of normal MRI findings recommend repeat as outpatient in 2 months Insomnia trial of Melatonin DVT prophylaxis SCDs Lovenox 40mg sq No changes to anterior assessment awaiting for placement. asked for laboratory for follow up. Discharge Planning Reviewed last CM note 10/26 - patient has no benefits for [facility] or any rehab. Patient is still max assist. She is self pay. Raciel Dorman MD Nov 06, 2016 14:09
--- NOTE | 2016-11-06 17:42 | HHI.PR ---
Subjective Subjective Comments Patient awake and alert. Feels that she is getting stronger in all extremities. Reports that she is learning ostomy care. Allergies: Coded Allergies: No Known Allergies (Unverified , 09/24/16) Review of Systems All other ROS: ROS reviewed as documented in chart Exam I&O / VS 11/06/16 11/06/16 11/07/16 15:00 23:00 07:00 Output Total 100 ml Balance -100 ml Stool Total 100 ml Vital Signs Date Time Temp Pulse Resp B/P (MAP) Pulse Ox O2 Delivery O2 Flow Rate FiO2 11/06/16 16:17 98.0 102 22 98/61 (73) 96 11/06/16 13:00 98.6 87 20 96/53 (67) 94 11/06/16 09:40 94 21 11/06/16 09:26 98.3 79 18 126/65 (85) 96 11/06/16 09:16 Room Air 11/06/16 04:00 97.9 84 20 135/68 (90) 94 11/06/16 00:00 98.4 92 20 130/67 (88) 96 11/05/16 20:00 98.5 98 20 118/92 (101) 95 11/05/16 19:13 98 21 11/05/16 19:00 Room Air General: No acute distress Musculoskeletal: Swelling (None in distal LE) Psychiatric: Cooperative, Appropriate mood & affect Orientation: oriented to Self, oriented to Place, oriented to Situation Neurologic: Speech (Clear) Motor: Right Upper Extremity (4/5), Left Upper Extremity (3+/5), Right Lower Extremity (#/5), Left Lower Extremity (2/5) Sensory Impaired but present in LE Objective Micro and Labs Date/Time Source Procedure Growth Status 10/12/16 14:49 Blood Peripheral Aerobic Blood Culture - Final NO GROWTH IN 5 DAYS Complete 10/12/16 14:49 Blood Peripheral Anaerobic Blood Culture - Final NO GROWTH IN 5 DAYS Complete 10/07/16 18:45 Sputum Endotracheal Gram Stain - Final Complete 10/07/16 18:45 Sputum Endotracheal Sputum Culture - Final MODERATE GROWTH NORMAL RESPIRATORY TERRA Complete 10/05/16 21:00 Urine Catheterized Urine Urine Culture - Final NO GROWTH IN 48 HOURS. Complete Assessment and Plan Diagnosis: (1) Critical illness polyneuropathy ICD Codes: G62.81 - Critical illness polyneuropathy Status: Acute (2) Critical illness myopathy ICD Codes: G72.81 - Critical illness myopathy Status: Acute Assessment 1. Critical illness polyneuropathy/myopathy with quadriparesis 2. COPD/Respiratory failure 3. Colonic ileus S/P ileostomy 4. PNA Plan 1. Patient progressing with strength and mobility. Now transfers supine to sit with CG and sit to stand with mod assist and takes 3 steps with rolling walker.Anticipate that mobility will continue to improve. Up to bedside chair daily. 2. OT addressing ADL'S and currently dependent. Theraband in place for patient to exercise while in bed. 3. ST evaluated swallow and soft diet with think liquids 4. Wound care providing education on ostomy care 5. Case management working on discharge planning and patient will benefit from continued home health at discharge if possible 6. On Lovenox for VTE prophylaxis 7. Will follow while hospitalized and at discharge as appropriate. Kasia Dougherty MD Nov 06, 2016 17:42
[2016-11-06] MEDS: ENOXAPARIN SODIUM 40 MG/0.4 ML SYRINGE SQ SCH (22:26)
[2016-11-06] MEDS: MELATONIN 5 MG TAB PO PRN (22:57)
[2016-11-07] VITALS (8 sets, daily range): BP systolic 100–127; BP diastolic 57–75; PULSE 80–94; RESP 16–20; TEMP 98–98.5; O2SAT 95–98
[2016-11-07] MEDS: LORazepam 0.5 MG TAB PO PRN ×3 (01:14→16:56)
[2016-11-07] MEDS: DILTIAZEM HCL 60 MG TAB PO SCH ×4 (01:18→20:00)
[2016-11-07] MEDS: hydrALAZINE HCL 50 MG TAB PO SCH ×3 (05:17→22:00)
[2016-11-07 07:52] LABS: AUTOMATED NEUTROPHIL # 5.1 TH/MM3 (1.8-7.7); BASOPHIL # 0.1 TH/MM3 (0-0.2); BASOPHIL % 1.1 % (0.0-2.0); EOSINOPHIL # 0.1 TH/MM3 (0-0.4); EOSINOPHIL % 0.9 % (0.0-4.0); HEMATOCRIT 28.4 % (35.0-46.0); LYMPH % 30.8 % (9.0-44.0); LYMPHOCYTE # 2.7 TH/MM3 (1.0-4.8); MEAN CELL VOLUME 88.9 FL (80.0-100.0); MEAN CORPUSCULAR HEMOGLOBIN 30.4 PG (27.0-34.0); MEAN CORPUSCULAR HGB CONC 34.2 % (32.0-36.0); MONO % 9.2 % (0.0-8.0); PLATELET COUNT 360 TH/MM3 (150-450); RED CELL DISTRIBUTION WIDTH 13.6 % (11.6-17.2); WHITE BLOOD COUNT 8.8 TH/MM3 (4.0-11.0)
[2016-11-07 07:55] LABS: HEMO FLAGS AUTO DIFF
[2016-11-07] MEDS: CHLORHEXIDINE 0.12% (ORAL KIT) 15 ML CUP MT SCH ×2 (08:00→20:00)
[2016-11-07 08:10] LABS: BICARBONATE 23.6 MEQ/L (21.0-32.0); MAGNESIUM 1.6 MG/DL (1.5-2.5); POTASSIUM 3.7 MEQ/L (3.5-5.1)
[2016-11-07] MEDS: RESP: BUDESONIDE 0.5 MG/2 ML NEB NEB SCH ×2 (08:41→20:07)
[2016-11-07] MEDS: BUDESONIDE-FORMOTEROL 160/4.5 MCG INHALER INH SCH ×2 (09:00→22:02)
[2016-11-07] MEDS: BENEPROTEIN POWDER 1 PACK G-TUBE SCH ×3 (09:00→15:12)
[2016-11-07] MEDS: SODIUM CHLORIDE 0.9% FLUSH 10 ML FLUSH IV FLUSH SCH ×2 (09:00→21:00)
[2016-11-07] MEDS: TIOTROPIUM BROMIDE 18 MCG INH INH SCH (09:00)
[2016-11-07] MEDS: PANTOPRAZOLE SOD 20 MG DELAYED RELEASE TAB PO SCH (09:28)
[2016-11-07] MEDS: GABAPENTIN 100 MG CAP PO SCH ×3 (09:29→16:54)
[2016-11-07] MEDS: POTASSIUM CHLORIDE 20 MEQ CONTROLLED RELEASE TAB PO SCH ×2 (09:29→22:02)
[2016-11-07] MEDS: ACETAMINOPHEN/HYDROcodone 325 MG/5 MG TAB PO PRN ×3 (09:29→19:41)
[2016-11-07] MEDS ORDERED: POTASSIUM CHLORIDE 20 MEQ CONTROLLED RELEASE TAB PO ONE (09:45)
[2016-11-07 09:49] LABS: BANDS 9 % (0-6); BASOPHILS 1 % (0-2); MYELOCYTES 2 % (0-0); NEUTROPHIL # MANUAL DIFF 5.9 TH/MM3 (1.8-7.7); PLATELET ESTIMATE SMEAR NORMAL (NORMAL); PLATELET MORPHOLOGY NORMAL (NORMAL); POLYS (SEG NEUTROPHILS) 56 % (16-70); SCAN/DIFF FINAL DIFF MANUAL; WBC DIFF SAMPLE 100
[2016-11-07] MEDS: MAGNESIUM SULFATE 1 GM PREMIX 100 ML IV SCH ×2 (11:51→13:43)
--- NOTE | 2016-11-07 13:47 | HHI.PR ---
Subjective Remarks 11/07: Follow up on patient with respiratory distress, COPD, PNA, colonic ileus s/p ileostomy and critical illness polyneuropathy. Seen in her bedroom, no complaint. no nausea, vomit or diarrhea. Objective Vital Signs Date Time Temp Pulse Resp B/P (MAP) Pulse Ox O2 Delivery O2 Flow Rate FiO2 11/07/16 08:40 97 21 11/07/16 08:00 Room Air 11/07/16 04:00 98.4 80 16 105/57 (73) 95 11/07/16 00:00 98.5 94 16 102/60 (74) 96 11/06/16 20:00 98.7 97 20 90/53 (65) 93 11/06/16 19:00 Room Air 11/06/16 16:17 98.0 102 22 98/61 (73) 96 I/O 11/06/16 11/06/16 11/06/16 11/07/16 11/07/16 11/07/16 07:00 15:00 23:00 07:00 15:00 23:00 Intake Total 100 ml Output Total 200 ml 100 ml 400 ml 200 ml Balance -200 ml -100 ml -400 ml 100 ml -200 ml Intake Oral 100 ml Output Urine Total 100 ml 150 ml Stool Total 100 ml 100 ml 250 ml 200 ml # Voids 1 1 0 # Bowel Movements 0 Result Diagram: 11/07/1671511/07/16715 Imaging Last Impressions Chest X-Ray 10/27/16 0000 Signed Impressions: Service Date/Time: Thursday, October 27, 2016 14:49 - CONCLUSION: Normal examination. Jamie Tobin Jr., MD Cervical Spine MRI 10/21/16 0000 Signed Impressions: Service Date/Time: Friday, October 21, 2016 08:43 - CONCLUSION: 1. Motion degraded exam. 2. No acute abnormality. 3. Mild degenerative disc disease without neural impingement. Jamie Tobin Jr., MD Brain MRI 10/21/16 0000 Signed Impressions: Service Date/Time: Friday, October 21, 2016 08:43 - CONCLUSION: 1. Unchanged nonspecific white matter lesions as detailed above. Differential diagnostic considerations remains quite broad. The 2 most likely etiologies would be a demyelinating process such as multiple sclerosus versus chronic small vessel ischemic change. Jamie Tobin Jr., MD Abdomen/Pelvis CT 10/13/16 0000 Signed Impressions: Service Date/Time: Thursday, October 13, 2016 13:13 - CONCLUSION: 1. Pneumoperitoneum likely from the hepatic flexure region of the colon. Pneumatosis was seen in this region on the prior exam. This area now appears thickened. 2. Induration around the pancreas concerning for pancreatitis. 3. New consolidation or atelectasis at the medial left lung base. Oliver Soria MD Abdomen X-Ray 10/12/16 0000 Signed Impressions: Service Date/Time: Wednesday, October 12, 2016 07:42 - CONCLUSION: Nasogastric tube in good position, probably ileus. Rico Boston MD FACR Procedures Endotracheal Intubation and extubation. Expressive Colonoscopy Ileostomy Other Results Laboratory Tests Test 09/25/16 00:00 09/26/16 11:15 10/04/16 08:23 10/05/16 04:49 Nasal Screen MRSA (PCR) MRSA NOT DETECTED Urine Squamous Epithelial Cells <1 /hpf Urine Hyaline Casts 6 /lpf Blood Urea Nitrogen 24 MG/DL Creatinine 0.56 MG/DL Random Glucose 129 MG/DL Total Protein 5.6 GM/DL Albumin 2.5 GM/DL Calcium Level 8.3 MG/DL Phosphorus Level 3.1 MG/DL Magnesium Level 2.7 MG/DL Alkaline Phosphatase 45 U/L Aspartate Amino Transf (AST/SGOT) 41 U/L Alanine Aminotransferase (ALT/SGPT) 74 U/L Total Bilirubin 0.3 MG/DL Direct Bilirubin 0.1 MG/DL Sodium Level 140 MEQ/L Potassium Level 4.0 MEQ/L Chloride Level 100 MEQ/L Carbon Dioxide Level 33.1 MEQ/L Indirect Bilirubin 0.2 MG/DL Thyroid Stimulating Hormone 3rd Gen 0.247 uIU/ML Lactic Acid Level 1.4 mmol/L Total Creatine Kinase 285 U/L Creatine Kinase MB 13.3 NG/ML Creatine Kinase MB % 4.7 % Free Thyroxine 0.74 NG/DL Free Triiodothyronine (T3) pg/dL 0.88 PG/ML Test 10/05/16 12:30 10/05/16 21:00 10/06/16 08:10 10/07/16 05:00 Troponin I 0.04 NG/ML Urine Color YELLOW Urine Turbidity CLEAR Urine pH 5.5 Urine Specific [place] 1.022 Urine Protein TRACE mg/dL Urine Glucose (UA) NEG mg/dL Urine Ketones NEG mg/dL Urine Occult Blood SMALL Urine Nitrite NEG Urine Bilirubin NEG Urine Urobilinogen LESS THAN 2.0 MG/DL Urine Leukocyte Esterase NEG Urine RBC 92 /hpf Urine WBC 3 /hpf Urine Bacteria RARE /hpf Urine Mucus FEW /lpf Microscopic Urinalysis Comment CATH-CULTURE IND Nucleated Red Blood Cells 1 /100 WBC Stool C. difficile Toxin (PCR) NEGATIVE Stl C. difficile Toxin Epiderm 027 PRESUMPTIVE NEGATIVE Test 10/09/16 05:45 10/13/16 14:30 10/13/16 20:04 10/14/16 04:45 Promyelocytes 1 % Toxic Vacuolation PRESENT Prothrombin Time 9.9 SEC Prothromb Time International Ratio 0.9 RATIO Blood Gas Puncture Site ART LINE Blood Gas Patient Temperature 98.6 Blood Gas HCO3 21 mmol/L Blood Gas Base Excess -3.0 mmol/L Blood Gas Oxygen Saturation 97 % Arterial Blood pH 7.40 Arterial Blood Partial Pressure CO2 35 mmHg Arterial Blood Partial Pressure O2 173 mmHg Arterial Blood Oxygen Content 16.7 Vol % Arterial Blood Carboxyhemoglobin 1.4 % Arterial Blood Methemoglobin 1.2 % Blood Gas Hemoglobin 12.0 G/DL Oxygen Delivery Device VENTILATOR Blood Gas Ventilator Setting AC/10/500/PEEP8 Blood Gas Inspired Oxygen 70 % Blood Urea Nitrogen 21 MG/DL Creatinine 0.29 MG/DL Random Glucose 113 MG/DL Total Protein 5.1 GM/DL Albumin 1.9 GM/DL Calcium Level 7.6 MG/DL Phosphorus Level 2.5 MG/DL Magnesium Level 2.1 MG/DL Alkaline Phosphatase 64 U/L Aspartate Amino Transf (AST/SGOT) 142 U/L Alanine Aminotransferase (ALT/SGPT) 362 U/L Total Bilirubin 0.7 MG/DL Sodium Level 137 MEQ/L Potassium Level 4.4 MEQ/L Chloride Level 105 MEQ/L Carbon Dioxide Level 26.4 MEQ/L Amylase Level 95 U/L Lipase 315 U/L Test 10/15/16 05:10 10/19/16 09:05 10/28/16 08:15 11/07/16 07:16 Vancomycin Level Trough 9.1 MCG/ML Vitamin B12 Level 621 PG/ML Eosinophils % 1 % Metamyelocytes 3 % Red Cell Morphology Comment NORMAL Blood Urea Nitrogen 7 MG/DL 7 MG/DL Creatinine 0.29 MG/DL 0.31 MG/DL Random Glucose 92 MG/DL 83 MG/DL Total Protein 6.4 GM/DL Albumin 2.9 GM/DL Calcium Level 9.4 MG/DL 8.4 MG/DL Alkaline Phosphatase 117 U/L Aspartate Amino Transf (AST/SGOT) 42 U/L Alanine Aminotransferase (ALT/SGPT) 98 U/L Total Bilirubin 0.5 MG/DL Sodium Level 135 MEQ/L 139 MEQ/L Potassium Level 3.9 MEQ/L 3.7 MEQ/L Chloride Level 102 MEQ/L 106 MEQ/L Carbon Dioxide Level 22.3 MEQ/L 23.6 MEQ/L White Blood Count 8.8 TH/MM3 Red Blood Count 3.20 MIL/MM3 Hemoglobin 9.7 GM/DL Hematocrit 28.4 % Mean Corpuscular Volume 88.9 FL Mean Corpuscular Hemoglobin 30.4 PG Mean Corpuscular Hemoglobin Concent 34.2 % Red Cell Distribution Width 13.6 % Platelet Count 360 TH/MM3 Mean Platelet Volume 7.6 FL Neutrophils (%) (Auto) 58.0 % Lymphocytes (%) (Auto) 30.8 % Monocytes (%) (Auto) 9.2 % Eosinophils (%) (Auto) 0.9 % Basophils (%) (Auto) 1.1 % Neutrophils # (Auto) 5.1 TH/MM3 Lymphocytes # (Auto) 2.7 TH/MM3 Monocytes # (Auto) 0.8 TH/MM3 Eosinophils # (Auto) 0.1 TH/MM3 Basophils # (Auto) 0.1 TH/MM3 CBC Comment AUTO DIFF Differential Total Cells Counted 100 Neutrophils % (Manual) 56 % Band Neutrophils % 9 % Lymphocytes % 24 % Monocytes % 8 % Basophils % 1 % Neutrophils # (Manual) 5.9 TH/MM3 Myelocytes 2 % Differential Comment FINAL DIFF MANUAL Platelet Estimate NORMAL Platelet Morphology Comment NORMAL Magnesium Level 1.6 MG/DL Anion Gap 9 MEQ/L Estimat Glomerular Filtration Rate 222 ML/MIN Objective Remarks GENERAL: NAD, A&Ox3 HEAD: Normocephalic. NECK: Supple, trachea midline. No lymphadenopathy. EYES: No scleral icterus. No injection or drainage. CARDIOVASCULAR: Regular rate and rhythm without murmurs, gallops, or rubs. RESPIRATORY: Breath sounds equal bilaterally. No accessory muscle use. GASTROINTESTINAL: Abdomen soft, non-tender, nondistended. ostomy in place. MUSCULOSKELETAL: No cyanosis, or edema. SKIN: Warm and dry. NEURO: Global weakness, weakness of upper and lower extremities greater in the upper extremities, numbness in lower extremities. Medications and IVs Current Medications Medications (Trade) Dose Ordered Sig/Amadou Route Start Time Stop Time Status Last Admin (NS Flush) 2 ml UNSCH PRN IV FLUSH 09/25/16 06:15 10/24/16 03:08 (NS Flush) 2 ml BID IV FLUSH 09/25/16 09:00 11/07/16 09:00 (Narcan Inj) 0.4 mg UNSCH PRN IV 09/25/16 06:15 (Lopressor) 50 mg BID PO 09/25/16 09:00 Future Hold 09/25/16 19:41 (Prinivil) 10 mg DAILY PO 09/25/16 09:00 Future Hold 09/25/16 08:32 (Hydrodiuril) 12.5 mg DAILY PO 09/25/16 09:00 Future Hold 09/25/16 08:32 (Pulmicort Respule Neb) 0.5 mg Q12HR NEB NEB 09/25/16 12:45 11/07/16 08:41 (Spiriva Inh) 18 mcg DAILY INH 09/25/16 12:45 11/07/16 09:00 (Cardizem) 60 mg Q6H PO 09/29/16 14:00 11/07/16 09:29 (Reglan Inj) 10 mg Q8HR IV PUSH 10/01/16 09:00 Future Hold 10/13/16 06:23 (Peridex 0.12% Liq) 15 ml BID@08,20 MT 10/03/16 20:00 10/31/16 08:00 (Apresoline Inj) 10 mg Q1HR PRN IV PUSH 10/04/16 16:00 10/13/16 07:52 (Trandate Inj) 10 mg Q1HR PRN IV PUSH 10/04/16 16:00 (Vasotec Inj) 1.25 mg Q6H PRN IV PUSH 10/04/16 16:00 (Apresoline) 50 mg Q8HR PO 10/13/16 14:00 11/06/16 22:26 (Zofran Inj) 4 mg Q6H PRN IV PUSH 10/13/16 11:15 10/22/16 05:09 (Beneprotein Powder) 1 pack TID G-TUBE 10/14/16 13:00 11/06/16 13:00 (Protonix) 20 mg DAILY PO 10/18/16 09:00 11/07/16 09:28 (KCl) 20 meq Q12HR PO 10/20/16 09:00 11/07/16 09:29 (Neurontin) 100 mg TID PO 10/20/16 18:00 11/07/16 11:50 (Lovenox Inj) 40 mg Q24H SQ 10/22/16 20:00 11/06/16 22:26 (Symbicort 160-4.5 Inh) 1 puff Q12HR INH 10/23/16 21:00 11/07/16 09:00 (Duoneb Neb) 1 ampule Q2HR NEB PRN NEB 10/23/16 15:30 11/06/16 14:50 ([place] 5-325 Mg) 1 tab Q4H PRN PO 10/28/16 12:15 11/07/16 09:29 (Tylenol) 650 mg Q4H PRN PO 10/28/16 12:15 (Ativan) 0.5 mg Q8H PRN PO 10/28/16 16:15 11/07/16 09:29 (Melatonin) 5 mg HS PRN PO 10/29/16 11:00 11/06/16 22:57 A/P Assessment and Plan 56-year-old female admitted secondary to respiratory distress and COPD and pneumonia. GI complications, now status post ileostomy. Continue physical therapy. C-spine MRI is within normal limits. MRI of brain shows abnormal findings which are not specific (scattered white matter lesions, multiple sclerosis versus ischemic changes). Symbicort and albuterol resumed. Continue to follow patient's neuro status. Paraplegia of unknown etiology Critical Illness Polyneuropathy as per Neurology specialist, secondary to bedridden status plus steroids plus infection MRI brain completed and per Neuro, do not think its MS or cord lesion, also less likely MS as no improvement on steroids. EMG/nerve conduction testing c/w critical illness polyneuropathy/myopathy. Continue participation with PT and OT Continue gabapentin for paresthesias Limit Steroid use and repeat MRI in 2 to 3 months. Acute hypercarbic respiratory failure COPD exacerbation. resolved HCAP, LLL infiltrate, resolved Bronchospasms extubated 10/10 Pulmonary and ID following - stable from pulm standpoint and ID has signed off Continue bronchodilators, Mucolytic and Incentive spirometry Continue Duonebs Oxygen as needed Chest tightness, chronic atypical, worse after meals and with lying supine, fullness after meals unlikely of cardiac origin. Suspect GI etiology CXR 10/27 personally reviewed and is normal examination EKG 10/13 personally reviewed and NSR Echo 09/10/15 EF 55-60%, normal wall motion, PA peak pressure 35mm Hg Recommend patient follow up with GI as outpatient for further evaluation Colonic ileus Status post ileostomy placed 10/13/16 Chronic hemorrhoids Regular diet completed course of Levaquin and Flagyl until 10/24/16 as per ID specialist Surgery following History of tobacco abuse Currently weaned off all nicotine Strongly recommended to stop smoking. Hypertension, controlled continue on Cardizem 60mg q6h and Hydralazine 50mg q8hr Lisinopril and Lopressor on hold due to hypotension Global deconditioning Approximately 22 days in ICU much of which was on a ventilator Continue physical therapy and occupational therapy Patient will need to be able to walk prior to discharge Patients boyfriend plans to interact during therapy sessions to assist patient following discharge Transaminitis trending down monitor as indicated Low TSH, low free T3 and low free T4 unsure of clinical significance especially in light of normal MRI findings recommend repeat as outpatient in 2 months Insomnia trial of Melatonin Hypokalemia today 3.7 giving 20 Meq of Potassium by mouth Magnesium 1.6 giving 2 grams of Magnesium Sulfate. DVT prophylaxis SCDs Lovenox 40mg sq No changes to anterior assessment awaiting for placement. Discharge Planning 11/04/16 Spoke with Mona Lopez and he states pt has a disability case started already and he will complete Medicaid application with her. Raciel Dorman MD Nov 07, 2016 13:47
[2016-11-07] MEDS: RESP: ALBUTEROL 2.5 MG/IPRATROPIUM 0.5 MG NEB (PRN) NEB (14:05)
[2016-11-07] MEDS: ENOXAPARIN SODIUM 40 MG/0.4 ML SYRINGE SQ SCH (22:02)
[2016-11-08] VITALS (7 sets, daily range): BP systolic 93–129; BP diastolic 50–65; PULSE 73–90; RESP 18–20; TEMP 97.6–98.9; O2SAT 93–96
[2016-11-08] MEDS: LORazepam 0.5 MG TAB PO PRN ×4 (00:14→22:27)
[2016-11-08] MEDS: ACETAMINOPHEN/HYDROcodone 325 MG/5 MG TAB PO PRN ×4 (00:17→20:16)
[2016-11-08] MEDS: DILTIAZEM HCL 60 MG TAB PO SCH ×4 (02:00→20:00)
[2016-11-08] MEDS: hydrALAZINE HCL 50 MG TAB PO SCH ×3 (05:38→21:13)
[2016-11-08] MEDS: CHLORHEXIDINE 0.12% (ORAL KIT) 15 ML CUP MT SCH ×2 (08:00→20:00)
[2016-11-08] MEDS: RESP: BUDESONIDE 0.5 MG/2 ML NEB NEB SCH ×2 (08:08→20:11)
[2016-11-08] MEDS: SODIUM CHLORIDE 0.9% FLUSH 10 ML FLUSH IV FLUSH SCH ×2 (09:00→20:20)
[2016-11-08] MEDS: BENEPROTEIN POWDER 1 PACK G-TUBE SCH ×3 (09:00→14:42)
[2016-11-08] MEDS: TIOTROPIUM BROMIDE 18 MCG INH INH SCH (09:00)
[2016-11-08] MEDS: BUDESONIDE-FORMOTEROL 160/4.5 MCG INHALER INH SCH ×2 (09:00→20:17)
[2016-11-08] MEDS: PANTOPRAZOLE SOD 20 MG DELAYED RELEASE TAB PO SCH (09:18)
[2016-11-08] MEDS: GABAPENTIN 100 MG CAP PO SCH ×3 (09:18→16:51)
[2016-11-08] MEDS: POTASSIUM CHLORIDE 20 MEQ CONTROLLED RELEASE TAB PO SCH ×2 (09:19→20:15)
--- NOTE | 2016-11-08 11:05 | HHI.PR ---
Subjective Remarks The patient was resting comfortably in bed. She said she wanted to get up out of bed and watch the storm. She has been eating very well. She would like Ativan for bedtime. Her pain control is adequate. Discussed with nursing. Objective Vitals Vital Signs Date Time Temp Pulse Resp B/P (MAP) Pulse Ox O2 Delivery O2 Flow Rate FiO2 11/08/16 08:20 98.2 78 18 126/59 (81) 95 11/08/16 08:11 95 11/08/16 08:00 Room Air 11/08/16 04:00 98.9 73 20 129/65 (86) 96 11/08/16 00:00 98.1 77 20 117/57 (77) 96 11/07/16 20:07 98 11/07/16 20:00 98.1 86 20 100/58 (72) 96 11/07/16 19:43 Room Air 11/07/16 16:00 98.0 87 20 120/75 (90) 95 11/07/16 12:00 Room Air 11/07/16 12:00 98.2 81 20 104/57 (73) 95 I/O 11/07/16 11/07/16 11/07/16 11/08/16 11/08/16 11/08/16 07:00 15:00 23:00 07:00 15:00 23:00 Intake Total 100 ml 100 ml 700 ml Output Total 200 ml 600 ml Balance 100 ml -100 ml 100 ml Intake Oral 100 ml 600 ml IV Total 100 ml 100 ml Output Urine Total 600 ml Stool Total 200 ml # Voids 0 # Bowel Movements 0 0 Result Diagram: 11/07/1671511/07/16715 Imaging Last Impressions Chest X-Ray 10/27/16 0000 Signed Impressions: Service Date/Time: Thursday, October 27, 2016 14:49 - CONCLUSION: Normal examination. Jamie Tobin Jr., MD Cervical Spine MRI 10/21/16 0000 Signed Impressions: Service Date/Time: Friday, October 21, 2016 08:43 - CONCLUSION: 1. Motion degraded exam. 2. No acute abnormality. 3. Mild degenerative disc disease without neural impingement. Jamie Tobin Jr., MD Brain MRI 10/21/16 0000 Signed Impressions: Service Date/Time: Friday, October 21, 2016 08:43 - CONCLUSION: 1. Unchanged nonspecific white matter lesions as detailed above. Differential diagnostic considerations remains quite broad. The 2 most likely etiologies would be a demyelinating process such as multiple sclerosus versus chronic small vessel ischemic change. Jamie Tobin Jr., MD Abdomen/Pelvis CT 10/13/16 0000 Signed Impressions: Service Date/Time: Thursday, October 13, 2016 13:13 - CONCLUSION: 1. Pneumoperitoneum likely from the hepatic flexure region of the colon. Pneumatosis was seen in this region on the prior exam. This area now appears thickened. 2. Induration around the pancreas concerning for pancreatitis. 3. New consolidation or atelectasis at the medial left lung base. Oliver Soria MD Abdomen X-Ray 10/12/16 0000 Signed Impressions: Service Date/Time: Wednesday, October 12, 2016 07:42 - CONCLUSION: Nasogastric tube in good position, probably ileus. Rico Boston MD FACR Objective Remarks GENERAL: NAD, A&Ox3 HEAD: Normocephalic. NECK: Supple, trachea midline. No lymphadenopathy. EYES: No scleral icterus. No injection or drainage. CARDIOVASCULAR: Regular rate and rhythm without murmurs, gallops, or rubs. RESPIRATORY: Breath sounds equal bilaterally. No accessory muscle use. GASTROINTESTINAL: Abdomen soft, non-tender, nondistended. ostomy in place. MUSCULOSKELETAL: No cyanosis, or edema. SKIN: Warm and dry. NEURO: Global weakness, weakness of upper and lower extremities greater in the upper extremities, numbness in lower extremities. PSYCH: Mood and affect appropriate. Procedures Endotracheal Intubation and extubation. Expressive Colonoscopy Ileostomy Medications and IVs Current Medications Medications (Trade) Dose Ordered Sig/Amadou Route Start Time Stop Time Status Last Admin (NS Flush) 2 ml UNSCH PRN IV FLUSH 09/25/16 06:15 10/24/16 03:08 (NS Flush) 2 ml BID IV FLUSH 09/25/16 09:00 11/08/16 09:00 (Narcan Inj) 0.4 mg UNSCH PRN IV 09/25/16 06:15 (Lopressor) 50 mg BID PO 09/25/16 09:00 Future Hold 09/25/16 19:41 (Prinivil) 10 mg DAILY PO 09/25/16 09:00 Future Hold 09/25/16 08:32 (Hydrodiuril) 12.5 mg DAILY PO 09/25/16 09:00 Future Hold 09/25/16 08:32 (Pulmicort Respule Neb) 0.5 mg Q12HR NEB NEB 09/25/16 12:45 11/08/16 08:08 (Spiriva Inh) 18 mcg DAILY INH 09/25/16 12:45 11/08/16 09:00 (Cardizem) 60 mg Q6H PO 09/29/16 14:00 11/08/16 09:18 (Reglan Inj) 10 mg Q8HR IV PUSH 10/01/16 09:00 Future Hold 10/13/16 06:23 (Peridex 0.12% Liq) 15 ml BID@08,20 MT 10/03/16 20:00 10/31/16 08:00 (Apresoline Inj) 10 mg Q1HR PRN IV PUSH 10/04/16 16:00 10/13/16 07:52 (Trandate Inj) 10 mg Q1HR PRN IV PUSH 10/04/16 16:00 (Vasotec Inj) 1.25 mg Q6H PRN IV PUSH 10/04/16 16:00 (Apresoline) 50 mg Q8HR PO 10/13/16 14:00 11/08/16 05:38 (Zofran Inj) 4 mg Q6H PRN IV PUSH 10/13/16 11:15 10/22/16 05:09 (Beneprotein Powder) 1 pack TID G-TUBE 10/14/16 13:00 11/06/16 13:00 (Protonix) 20 mg DAILY PO 10/18/16 09:00 11/08/16 09:18 (KCl) 20 meq Q12HR PO 10/20/16 09:00 11/08/16 09:19 (Neurontin) 100 mg TID PO 10/20/16 18:00 11/08/16 09:18 (Lovenox Inj) 40 mg Q24H SQ 10/22/16 20:00 11/07/16 22:02 (Symbicort 160-4.5 Inh) 1 puff Q12HR INH 10/23/16 21:00 11/08/16 09:00 (Duoneb Neb) 1 ampule Q2HR NEB PRN NEB 10/23/16 15:30 11/07/16 14:05 ([place] 5-325 Mg) 1 tab Q4H PRN PO 10/28/16 12:15 11/08/16 09:19 (Tylenol) 650 mg Q4H PRN PO 10/28/16 12:15 (Ativan) 0.5 mg Q8H PRN PO 10/28/16 16:15 11/08/16 09:19 (Melatonin) 5 mg HS PRN PO 10/29/16 11:00 11/06/16 22:57 A/P Assessment and Plan 56-year-old female admitted secondary to respiratory distress and COPD and pneumonia. GI complications, now status post ileostomy. Continue physical therapy. C-spine MRI is within normal limits. MRI of brain shows abnormal findings which are not specific (scattered white matter lesions, multiple sclerosis versus ischemic changes). Symbicort and albuterol resumed. Continue to follow patient's neuro status. Paraplegia Critical Illness Polyneuropathy as per Neurology specialist, secondary to bedridden status plus steroids plus infection. MRI brain completed and per Neuro , do not think its MS or cord lesion, also less likely MS as no improvement on steroids. 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 - Continue participation with PT and OT - Continue gabapentin for paresthesias - Limit Steroid use and repeat MRI in 2 to 3 months. Acute hypercarbic respiratory failure/ COPD exacerbation, resolved/ HCAP, LLL infiltrate, resolved Extubated 10/10. Pulmonary and ID following - stable from pulm standpoint and ID has signed off - Continue bronchodilators, Mucolytic and Incentive spirometry - Continue Duonebs - Oxygen as needed Chest tightness, chronic atypical, worse after meals and with lying supine, fullness after meals. Unlikely of cardiac origin. Suspect GI etiology. CXR 09/30 reviewed and is normal examination. EKG with NSR. Echo 09/10/15 EF 55-60%, normal wall motion, PA peak pressure 35mm Hg - Recommend patient follow up with GI as outpatient for further evaluation. Colonic ileus Status post ileostomy placed 10/13/16 - Regular diet - completed course of Levaquin and Flagyl until 10/24/16 as per ID specialist - Surgery following History of tobacco abuse Currently weaned off all nicotine - Strongly recommended to stop smoking. Hypertension, controlled Lisinopril and Lopressor on hold due to hypotension - continue on Cardizem 60mg q6h and Hydralazine 50mg q8hr Transaminitis trending down monitor as indicated Low TSH, low free T3 and low free T4 unsure of clinical significance especially in light of normal MRI findings recommend repeat as outpatient in 2 months DVT prophylaxis SCDs Lovenox 40mg sq Discharge Planning Awaiting medicaid application. Will need placement at this point Leo Garner DO Nov 08, 2016 11:05
[2016-11-08] MEDS: ENOXAPARIN SODIUM 40 MG/0.4 ML SYRINGE SQ SCH (20:16)
[2016-11-09] VITALS (8 sets, daily range): BP systolic 95–122; BP diastolic 52–65; PULSE 76–86; RESP 16–18; TEMP 97.9–98.6; O2SAT 92–97
[2016-11-09] MEDS: DILTIAZEM HCL 60 MG TAB PO SCH ×4 (02:00→20:00)
[2016-11-09] MEDS: LORazepam 0.5 MG TAB PO PRN ×3 (05:00→22:14)
[2016-11-09] MEDS: ACETAMINOPHEN/HYDROcodone 325 MG/5 MG TAB PO PRN ×5 (05:01→22:15)
[2016-11-09] MEDS: hydrALAZINE HCL 50 MG TAB PO SCH ×3 (06:03→20:58)
[2016-11-09 06:49] LABS: HEMATOCRIT 29.3 % (35.0-46.0); MEAN CELL VOLUME 89.1 FL (80.0-100.0); MEAN CORPUSCULAR HEMOGLOBIN 30.1 PG (27.0-34.0); MEAN CORPUSCULAR HGB CONC 33.8 % (32.0-36.0); PLATELET COUNT 351 TH/MM3 (150-450); RED BLOOD COUNT 3.29 MIL/MM3 (4.00-5.30); RED CELL DISTRIBUTION WIDTH 13.4 % (11.6-17.2); REVIEW FLAG FINAL; WHITE BLOOD COUNT 9.8 TH/MM3 (4.0-11.0)
[2016-11-09 07:12] LABS: BICARBONATE 24.4 MEQ/L (21.0-32.0); MAGNESIUM 1.8 MG/DL (1.5-2.5); POTASSIUM 3.9 MEQ/L (3.5-5.1)
[2016-11-09] MEDS: RESP: BUDESONIDE 0.5 MG/2 ML NEB NEB SCH ×2 (07:30→19:18)
[2016-11-09] MEDS: CHLORHEXIDINE 0.12% (ORAL KIT) 15 ML CUP MT SCH ×2 (08:00→20:00)
[2016-11-09] MEDS: SODIUM CHLORIDE 0.9% FLUSH 10 ML FLUSH IV FLUSH SCH ×2 (08:46→20:58)
[2016-11-09] MEDS: BENEPROTEIN POWDER 1 PACK G-TUBE SCH ×3 (08:46→18:00)
[2016-11-09] MEDS: BUDESONIDE-FORMOTEROL 160/4.5 MCG INHALER INH SCH ×2 (08:46→20:57)
[2016-11-09] MEDS: TIOTROPIUM BROMIDE 18 MCG INH INH SCH (08:46)
[2016-11-09] MEDS: PANTOPRAZOLE SOD 20 MG DELAYED RELEASE TAB PO SCH (09:00)
[2016-11-09] MEDS: GABAPENTIN 100 MG CAP PO SCH ×2 (09:00→13:00)
[2016-11-09] MEDS: POTASSIUM CHLORIDE 20 MEQ CONTROLLED RELEASE TAB PO SCH ×2 (09:00→20:54)
--- NOTE | 2016-11-09 14:31 | HHI.PR ---
Subjective Remarks The pt was anxious to get to rehab. She said that she has not worked with PT in a bit. She thinks she shakes less when exerting herself. Reports some numbness in her toes that has been ongoing. Objective Vitals Vital Signs Date Time Temp Pulse Resp B/P (MAP) Pulse Ox O2 Delivery O2 Flow Rate FiO2 11/09/16 12:01 97.9 85 18 110/58 (75) 96 11/09/16 08:31 98.3 81 18 102/54 (70) 92 11/09/16 08:00 Room Air 11/09/16 04:00 98.0 86 18 122/65 (84) 96 11/09/16 00:00 98.4 86 16 95/52 (66) 93 11/08/16 20:20 Room Air 11/08/16 20:00 97.6 90 19 93/51 (65) 95 11/08/16 16:01 98.3 83 18 99/50 (66) 93 11/08/16 16:00 Room Air I/O 11/08/16 11/08/16 11/08/16 11/09/16 11/09/16 11/09/16 07:00 15:00 23:00 07:00 15:00 23:00 Intake Total 600 ml Output Total 150 ml Balance 600 ml -150 ml Intake Oral 600 ml Output Urine Total 150 ml # Voids 3 # Bowel Movements 0 Result Diagram: 11/09/16 0525 11/09/16 0525 Imaging Last Impressions Chest X-Ray 10/27/16 0000 Signed Impressions: Service Date/Time: Thursday, October 27, 2016 14:49 - CONCLUSION: Normal examination. Jamie Tobin Jr., MD Cervical Spine MRI 10/21/16 0000 Signed Impressions: Service Date/Time: Friday, October 21, 2016 08:43 - CONCLUSION: 1. Motion degraded exam. 2. No acute abnormality. 3. Mild degenerative disc disease without neural impingement. Jamie Tobin Jr., MD Brain MRI 10/21/16 0000 Signed Impressions: Service Date/Time: Friday, October 21, 2016 08:43 - CONCLUSION: 1. Unchanged nonspecific white matter lesions as detailed above. Differential diagnostic considerations remains quite broad. The 2 most likely etiologies would be a demyelinating process such as multiple sclerosus versus chronic small vessel ischemic change. Jamie Tobin Jr., MD Abdomen/Pelvis CT 10/13/16 0000 Signed Impressions: Service Date/Time: Thursday, October 13, 2016 13:13 - CONCLUSION: 1. Pneumoperitoneum likely from the hepatic flexure region of the colon. Pneumatosis was seen in this region on the prior exam. This area now appears thickened. 2. Induration around the pancreas concerning for pancreatitis. 3. New consolidation or atelectasis at the medial left lung base. Oliver Soria MD Abdomen X-Ray 10/12/16 0000 Signed Impressions: Service Date/Time: Wednesday, October 12, 2016 07:42 - CONCLUSION: Nasogastric tube in good position, probably ileus. Rico Boston MD FACR Objective Remarks GENERAL: NAD, A&Ox3 HEAD: Normocephalic. NECK: Supple, trachea midline. No lymphadenopathy. EYES: No scleral icterus. No injection or drainage. CARDIOVASCULAR: Regular rate and rhythm without murmurs, gallops, or rubs. RESPIRATORY: Breath sounds equal bilaterally. No accessory muscle use. GASTROINTESTINAL: Abdomen soft, non-tender, nondistended. ostomy in place. MUSCULOSKELETAL: No cyanosis, or edema. SKIN: Warm and dry. NEURO: Global weakness, weakness of upper and lower extremities greater in the upper extremities, numbness in lower extremities. PSYCH: Mood and affect appropriate. Procedures Endotracheal Intubation and extubation. Expressive Colonoscopy Ileostomy Medications and IVs Current Medications Medications (Trade) Dose Ordered Sig/Amadou Route Start Time Stop Time Status Last Admin (NS Flush) 2 ml UNSCH PRN IV FLUSH 09/25/16 06:15 10/24/16 03:08 (NS Flush) 2 ml BID IV FLUSH 09/25/16 09:00 11/09/16 08:46 (Narcan Inj) 0.4 mg UNSCH PRN IV 09/25/16 06:15 (Lopressor) 50 mg BID PO 09/25/16 09:00 Future Hold 09/25/16 19:41 (Prinivil) 10 mg DAILY PO 09/25/16 09:00 Future Hold 09/25/16 08:32 (Hydrodiuril) 12.5 mg DAILY PO 09/25/16 09:00 Future Hold 09/25/16 08:32 (Pulmicort Respule Neb) 0.5 mg Q12HR NEB NEB 09/25/16 12:45 11/09/16 07:30 (Spiriva Inh) 18 mcg DAILY INH 09/25/16 12:45 11/09/16 08:46 (Cardizem) 60 mg Q6H PO 09/29/16 14:00 11/09/16 13:24 (Reglan Inj) 10 mg Q8HR IV PUSH 10/01/16 09:00 Future Hold 10/13/16 06:23 (Peridex 0.12% Liq) 15 ml BID@08,20 MT 10/03/16 20:00 10/31/16 08:00 (Apresoline Inj) 10 mg Q1HR PRN IV PUSH 10/04/16 16:00 10/13/16 07:52 (Trandate Inj) 10 mg Q1HR PRN IV PUSH 10/04/16 16:00 (Vasotec Inj) 1.25 mg Q6H PRN IV PUSH 10/04/16 16:00 (Apresoline) 50 mg Q8HR PO 10/13/16 14:00 11/09/16 06:03 (Zofran Inj) 4 mg Q6H PRN IV PUSH 10/13/16 11:15 10/22/16 05:09 (Beneprotein Powder) 1 pack TID G-TUBE 10/14/16 13:00 11/06/16 13:00 (Protonix) 20 mg DAILY PO 10/18/16 09:00 11/09/16 09:00 (KCl) 20 meq Q12HR PO 10/20/16 09:00 11/09/16 09:00 (Neurontin) 100 mg TID PO 10/20/16 18:00 11/09/16 13:00 (Lovenox Inj) 40 mg Q24H SQ 10/22/16 20:00 11/08/16 20:16 (Symbicort 160-4.5 Inh) 1 puff Q12HR INH 10/23/16 21:00 11/09/16 08:46 (Duoneb Neb) 1 ampule Q2HR NEB PRN NEB 10/23/16 15:30 11/07/16 14:05 (Remlap 5-325 Mg) 1 tab Q4H PRN PO 10/28/16 12:15 11/09/16 13:24 (Tylenol) 650 mg Q4H PRN PO 10/28/16 12:15 (Ativan) 0.5 mg Q8H PRN PO 10/28/16 16:15 11/09/16 13:24 (Melatonin) 5 mg HS PRN PO 10/29/16 11:00 11/06/16 22:57 (Ativan) 0.5 mg HS PRN PO 11/08/16 11:15 11/08/16 22:27 A/P Assessment and Plan 56-year-old female admitted secondary to respiratory distress and COPD and pneumonia. GI complications, now status post ileostomy. Continue physical therapy. C-spine MRI is within normal limits. MRI of brain shows abnormal findings which are not specific (scattered white matter lesions, multiple sclerosis versus ischemic changes). Symbicort and albuterol resumed. Continue to follow patient's neuro status. Paraplegia Critical Illness Polyneuropathy as per Neurology specialist, secondary to bedridden status plus steroids plus infection. MRI brain completed and per Neuro , do not think its MS or cord lesion, also less likely MS as no improvement on steroids. 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 - Continue participation with PT and OT. Requested PT to work with pt 7 days a week. - Continue gabapentin for paresthesias. Increase to 300 mg TID. - Limit steroid use and repeat MRI in 2 to 3 months. Acute hypercarbic respiratory failure/ COPD exacerbation, resolved/ HCAP, LLL infiltrate, resolved Extubated 10/10. Pulmonary and ID following - stable from pulm standpoint and ID has signed off - Continue bronchodilators, Mucolytic and Incentive spirometry. - Continue Duonebs. - Oxygen as needed. Chest tightness, chronic atypical, worse after meals and with lying supine, fullness after meals. Unlikely of cardiac origin. Suspect GI etiology. CXR 09/30 reviewed and is normal examination. EKG with NSR. Echo 09/10/15 EF 55-60%, normal wall motion, PA peak pressure 35mm Hg. - Recommend patient follow up with GI as outpatient for further evaluation. Colonic ileus Status post ileostomy placed 10/13/16. - Regular diet. - completed course of Levaquin and Flagyl until 10/24/16 as per ID specialist. - Surgery following. History of tobacco abuse Currently weaned off all nicotine. - Strongly recommended to stop smoking. Hypertension Controlled. - Lisinopril and Lopressor on hold due to hypotension. - continue on Cardizem 60mg q6h and Hydralazine 50mg q8hr. Transaminitis Stable. - monitor as indicated. Low TSH, low free T3 and low free T4 Unsure of clinical significance especially in light of normal MRI findings. - recommend repeat as outpatient in 2 months. Anemia Hgb has been decreasing. - check iron studies, B12, folate. DVT prophylaxis SCDs Lovenox 40mg sq Discharge Planning Awaiting medicaid application. Will need placement at this point Leo Garner DO Nov 09, 2016 14:31
[2016-11-09 15:11] LABS: TRANSFERRIN IRON PROFILE 170 MG/DL (200-360)
[2016-11-09 15:30] LABS: FERRITIN 463 NG/ML (8-252)
[2016-11-09] MEDS: GABAPENTIN 300 MG CAP PO SCH (18:00)
[2016-11-09] MEDS: RESP: ALBUTEROL 2.5 MG/IPRATROPIUM 0.5 MG NEB (PRN) NEB (18:22)
[2016-11-09 19:39] LABS: C. DIFF EPI 027 PRESUMPTIVE NEGATIVE (NEGATIVE)
[2016-11-09] MEDS: ENOXAPARIN SODIUM 40 MG/0.4 ML SYRINGE SQ SCH (20:56)
[2016-11-10] VITALS (7 sets, daily range): BP systolic 98–132; BP diastolic 52–66; PULSE 68–89; RESP 16–20; TEMP 97.7–98.2; O2SAT 93–98
[2016-11-10] MEDS: DILTIAZEM HCL 60 MG TAB PO SCH ×4 (02:00→20:33)
[2016-11-10] MEDS: LORazepam 0.5 MG TAB PO PRN ×3 (03:12→23:15)
[2016-11-10] MEDS: hydrALAZINE HCL 50 MG TAB PO SCH ×3 (05:15→21:52)
[2016-11-10] MEDS: RESP: ALBUTEROL 2.5 MG/IPRATROPIUM 0.5 MG NEB (PRN) NEB (07:27)
[2016-11-10] MEDS: RESP: BUDESONIDE 0.5 MG/2 ML NEB NEB SCH ×2 (07:27→19:58)
[2016-11-10] MEDS: CHLORHEXIDINE 0.12% (ORAL KIT) 15 ML CUP MT SCH ×2 (07:37→20:00)
[2016-11-10] MEDS: BENEPROTEIN POWDER 1 PACK G-TUBE SCH ×3 (07:38→16:37)
[2016-11-10] MEDS: GABAPENTIN 300 MG CAP PO SCH ×3 (08:24→16:37)
[2016-11-10] MEDS: POTASSIUM CHLORIDE 20 MEQ CONTROLLED RELEASE TAB PO SCH ×2 (08:24→20:33)
[2016-11-10] MEDS: PANTOPRAZOLE SOD 20 MG DELAYED RELEASE TAB PO SCH (08:24)
[2016-11-10] MEDS: ACETAMINOPHEN/HYDROcodone 325 MG/5 MG TAB PO PRN (08:27)
[2016-11-10] MEDS: SODIUM CHLORIDE 0.9% FLUSH 10 ML FLUSH IV FLUSH SCH ×2 (08:28→20:33)
[2016-11-10] MEDS: TIOTROPIUM BROMIDE 18 MCG INH INH SCH ×2 (08:31→09:00)
[2016-11-10] MEDS: BUDESONIDE-FORMOTEROL 160/4.5 MCG INHALER INH SCH ×2 (08:31→20:37)
--- NOTE | 2016-11-10 11:46 | PD.WCN.NOT ---
Wound Consult Description: Consult placed per Dr Yo for "stoma" Recommendation: Encouraged patient to open and close pouch at top to release air. Please call staff for assistance in emptying ileostomy pouch of effluent when 1/ 2-1/3 full Have patient participate when ileostomy care is taking place especially when emptying and changing appliance when press machine operator is not available Allow patient to watch Ostomy care with her mirror when changing appliance and have significant other observe if available Additional Information: Patient seen on for Ostomy assessment and appliance change. Ostomy Type: Ileostomy Surgeon: Victor Manuel Yo MD Date of Surgery: Oct 13, 2016 Complete: Education materials, Other (patient instructed to call staff when pouch begins to feel heavy or is in need of emptying/releasing air etc.) Educated patient on: Patient stated that they had her on precautions while lead technical writer was gone saying she might have Cdiff, but the test came back negative. Patient was educated that with an ileostomy, a cdiff test is not needed. Cdiff tests for infection in the colon which is not in use at this time. The stoma was measured today and has changed shape and size. The stoma is oval and now measuring 1 1/8" therefore an appliance in size 1 3/4" will be used today. Additional information Changing of appliance with new size ileostomy measuring 1 1/8". Stoma is red, moist, oval, functioning with green liquid/soft effluent noted to pouch, lumen noted at 8 o'clock. Appliance was leaking at 3 o'clock. Appliance was removed, peristomal skin was cleansed with water only, and a new barrier (1 3/4") was placed with a urostomy pouch (all that was available at this time). Appliances in size 1 3/4" ordered for pouch to be changed and for next appliance change, although a 2 1/4" appliance is acceptable as well. Nell Nur [facility] Nov 10, 2016 11:46
--- NOTE | 2016-11-10 13:09 | HHI.PR ---
Subjective Remarks The patient was feeling anxious. She also said she worked with physical therapy and had extra pain with that and wanted her [place] increased a little bit. The patient also mentioned that her voice continues to be hoarse and was wondering about that. Discussed with nursing. No acute concerns. Objective Vitals Vital Signs Date Time Temp Pulse Resp B/P (MAP) Pulse Ox O2 Delivery O2 Flow Rate FiO2 11/10/16 12:16 97.9 68 18 116/56 (76) 95 11/10/16 08:13 97.7 89 18 111/57 (75) 93 11/10/16 08:00 Room Air 11/10/16 07:27 95 21 11/10/16 04:00 98.1 77 18 98/52 (67) 95 11/10/16 00:00 98.0 78 20 98/53 (68) 95 11/09/16 23:08 18 11/09/16 21:00 Room Air 11/09/16 20:00 98.6 84 18 105/60 (75) 94 11/09/16 19:20 94 11/09/16 18:23 97 11/09/16 16:13 98.1 76 18 102/55 (71) 95 11/09/16 16:00 Room Air I/O 11/09/16 11/09/16 11/09/16 11/10/16 11/10/16 11/10/16 07:00 15:00 23:00 07:00 15:00 23:00 Intake Total 600 ml Output Total 600 ml 400 ml Balance -600 ml 600 ml -400 ml Intake Oral 600 ml Output Urine Total 150 ml 200 ml Stool Total 450 ml 200 ml # Voids 3 2 Result Diagram: 11/09/16 0525 11/09/16 0525 Imaging Last Impressions Chest X-Ray 10/27/16 0000 Signed Impressions: Service Date/Time: Thursday, October 27, 2016 14:49 - CONCLUSION: Normal examination. Jamie Tobin Jr., MD Cervical Spine MRI 10/21/16 0000 Signed Impressions: Service Date/Time: Friday, October 21, 2016 08:43 - CONCLUSION: 1. Motion degraded exam. 2. No acute abnormality. 3. Mild degenerative disc disease without neural impingement. Jamie Tobin Jr., MD Brain MRI 10/21/16 0000 Signed Impressions: Service Date/Time: Friday, October 21, 2016 08:43 - CONCLUSION: 1. Unchanged nonspecific white matter lesions as detailed above. Differential diagnostic considerations remains quite broad. The 2 most likely etiologies would be a demyelinating process such as multiple sclerosus versus chronic small vessel ischemic change. Jamie Tobin Jr., MD Abdomen/Pelvis CT 10/13/16 0000 Signed Impressions: Service Date/Time: Thursday, October 13, 2016 13:13 - CONCLUSION: 1. Pneumoperitoneum likely from the hepatic flexure region of the colon. Pneumatosis was seen in this region on the prior exam. This area now appears thickened. 2. Induration around the pancreas concerning for pancreatitis. 3. New consolidation or atelectasis at the medial left lung base. Oliver Soria MD Abdomen X-Ray 10/12/16 0000 Signed Impressions: Service Date/Time: Wednesday, October 12, 2016 07:42 - CONCLUSION: Nasogastric tube in good position, probably ileus. Rico Boston MD FACR Objective Remarks GENERAL: NAD, A&Ox3 HEAD: Normocephalic. NECK: Supple, trachea midline. No lymphadenopathy. EYES: No scleral icterus. No injection or drainage. CARDIOVASCULAR: Regular rate and rhythm without murmurs, gallops, or rubs. RESPIRATORY: Breath sounds equal bilaterally. No accessory muscle use. GASTROINTESTINAL: Abdomen soft, non-tender, nondistended. Ileostomy in place with brown liquid noted. MUSCULOSKELETAL: No cyanosis, or edema. SKIN: Warm and dry. NEURO: Global weakness, weakness of upper and lower extremities greater in the upper extremities, numbness in lower extremities. PSYCH: Mood and affect appropriate. Procedures Endotracheal Intubation and extubation. Expressive Colonoscopy Ileostomy Medications and IVs Current Medications Medications (Trade) Dose Ordered Sig/Amadou Route Start Time Stop Time Status Last Admin (NS Flush) 2 ml UNSCH PRN IV FLUSH 09/25/16 06:15 10/24/16 03:08 (NS Flush) 2 ml BID IV FLUSH 09/25/16 09:00 11/10/16 08:28 (Narcan Inj) 0.4 mg UNSCH PRN IV 09/25/16 06:15 (Lopressor) 50 mg BID PO 09/25/16 09:00 Future Hold 09/25/16 19:41 (Prinivil) 10 mg DAILY PO 09/25/16 09:00 Future Hold 09/25/16 08:32 (Hydrodiuril) 12.5 mg DAILY PO 09/25/16 09:00 Future Hold 09/25/16 08:32 (Pulmicort Respule Neb) 0.5 mg Q12HR NEB NEB 09/25/16 12:45 11/10/16 07:27 (Spiriva Inh) 18 mcg DAILY INH 09/25/16 12:45 11/09/16 08:46 (Cardizem) 60 mg Q6H PO 09/29/16 14:00 11/10/16 08:24 (Reglan Inj) 10 mg Q8HR IV PUSH 10/01/16 09:00 Future Hold 10/13/16 06:23 (Peridex 0.12% Liq) 15 ml BID@08,20 MT 10/03/16 20:00 10/31/16 08:00 (Vasotec Inj) 1.25 mg Q6H PRN IV PUSH 10/04/16 16:00 (Apresoline) 50 mg Q8HR PO 10/13/16 14:00 11/09/16 06:03 (Zofran Inj) 4 mg Q6H PRN IV PUSH 10/13/16 11:15 10/22/16 05:09 (Beneprotein Powder) 1 pack TID G-TUBE 10/14/16 13:00 11/06/16 13:00 (Protonix) 20 mg DAILY PO 10/18/16 09:00 11/10/16 08:24 (KCl) 20 meq Q12HR PO 10/20/16 09:00 11/10/16 08:24 (Lovenox Inj) 40 mg Q24H SQ 10/22/16 20:00 11/09/16 20:56 (Symbicort 160-4.5 Inh) 1 puff Q12HR INH 10/23/16 21:00 11/10/16 08:31 (Duoneb Neb) 1 ampule Q2HR NEB PRN NEB 10/23/16 15:30 11/10/16 07:27 ([place] 5-325 Mg) 1 tab Q4H PRN PO 10/28/16 12:15 11/10/16 08:27 (Tylenol) 650 mg Q4H PRN PO 10/28/16 12:15 (Ativan) 0.5 mg Q8H PRN PO 10/28/16 16:15 11/10/16 08:24 (Ativan) 0.5 mg HS PRN PO 11/08/16 11:15 11/10/16 03:12 (Neurontin) 300 mg TID PO 11/09/16 18:00 11/10/16 08:24 A/P Assessment and Plan 56-year-old female admitted secondary to respiratory distress and COPD and pneumonia. GI complications, now status post ileostomy. Continue physical therapy. C-spine MRI is within normal limits. MRI of brain shows abnormal findings which are not specific (scattered white matter lesions, multiple sclerosis versus ischemic changes). Symbicort and albuterol resumed. Continue to follow patient's neuro status. Paraplegia Critical Illness Polyneuropathy as per Neurology specialist, secondary to bedridden status plus steroids plus infection. MRI brain completed and per Neuro , do not think its MS or cord lesion, also less likely MS as no improvement on steroids. 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 - Continue participation with PT and OT. Requested PT to work with pt 7 days a week. - Continue gabapentin for paresthesias. Increased to 300 mg TID. - Limit steroid use and repeat MRI in 2 to 3 months. Acute hypercarbic respiratory failure/ COPD exacerbation, resolved/ HCAP, LLL infiltrate, resolved Extubated 10/10. Pulmonary and ID following - stable from pulm standpoint and ID has signed off - Continue bronchodilators, Mucolytic and Incentive spirometry. - Continue Duonebs. - Oxygen as needed. Chest tightness, chronic atypical, worse after meals and with lying supine, fullness after meals. Unlikely of cardiac origin. Suspect GI etiology. CXR 09/30 reviewed and is normal examination. EKG with NSR. Echo 09/10/15 EF 55-60%, normal wall motion, PA peak pressure 35mm Hg. - Recommend patient follow up with GI as outpatient for further evaluation. Colonic ileus Status post ileostomy placed 10/13/16. - Regular diet. - completed course of Levaquin and Flagyl until 10/24/16 as per ID specialist. - Surgery following. History of tobacco abuse Currently weaned off all nicotine. - Strongly recommended to stop smoking. Hypertension Controlled. - Lisinopril and Lopressor on hold due to relative hypotension. - continue on Cardizem 60mg q6h and Hydralazine 50mg q8hr. Transaminitis Stable. - monitor as indicated. Low TSH, low free T3 and low free T4 Unsure of clinical significance especially in light of normal MRI findings. - recommend repeat as outpatient in 2 months. Anemia Hgb has been decreasing. Possibly anemia of chronic disease. - monitor as needed. Anxiety Chronic. - Ativan. Hoarse voice Likely s/t intubation. Possible laryngeal nerve injury. Possible GERD. - increase PPI. - Lozenges as needed. - outpt ENT follow-up. DVT prophylaxis SCDs Lovenox 40mg sq Discharge Planning Awaiting medicaid application. Will need placement at this point Leo Garner DO Nov 10, 2016 13:09
[2016-11-10] MEDS ORDERED: PANTOPRAZOLE SOD 20 MG DELAYED RELEASE TAB PO ONE (13:15)
--- NOTE | 2016-11-10 13:45 | HHI.PR ---
Subjective Remarks 56 YOWF with VDRF, , extubated 10/10 no Fever Appetite good Works with PT Breathing nebs helps Objective Vital Signs Vital Signs Date Time Temp Pulse Resp B/P (MAP) Pulse Ox O2 Delivery O2 Flow Rate FiO2 11/10/16 12:16 97.9 68 18 116/56 (76) 95 11/10/16 08:13 97.7 89 18 111/57 (75) 93 11/10/16 08:00 Room Air 11/10/16 07:27 95 21 11/10/16 04:00 98.1 77 18 98/52 (67) 95 11/10/16 00:00 98.0 78 20 98/53 (68) 95 11/09/16 23:08 18 11/09/16 21:00 Room Air 11/09/16 20:00 98.6 84 18 105/60 (75) 94 11/09/16 19:20 94 11/09/16 18:23 97 11/09/16 16:13 98.1 76 18 102/55 (71) 95 11/09/16 16:00 Room Air I/O 11/09/16 11/09/16 11/09/16 11/10/16 11/10/16 11/10/16 07:00 15:00 23:00 07:00 15:00 23:00 Intake Total 600 ml Output Total 600 ml 400 ml Balance -600 ml 600 ml -400 ml Intake Oral 600 ml Output Urine Total 150 ml 200 ml Stool Total 450 ml 200 ml # Voids 3 2 Result Diagram: 11/09/1652411/09/16 0525 Objective Remarks GENERAL: MBMN WF, on Vent SKIN: Warm and dry. HEAD: Normocephalic. EYES: No scleral icterus. No injection or drainage. NECK: Supple, trachea midline. No JVD or lymphadenopathy. CARDIOVASCULAR: Regular rate and rhythm without murmurs, gallops, or rubs. RESPIRATORY: Breath sounds equal bilaterally. No accessory muscle use. GASTROINTESTINAL: Abdomen soft, non-tender, nondistended. Ileostomy MUSCULOSKELETAL: No cyanosis, or edema. BACK: Nontender without obvious deformity. No CVA tenderness. A/P Assessment and Plan VDRF, s/p extubation 10/10 COPD Exac HTN Nicotine use S/p Exp Lap, ileostomy PLAN Stable off Abx Duonebs qid Encourage PO. Physical therapy. Cont Budesonide and Duonebs Stable from pulm standpoint Abdirahman Marquez MD Nov 10, 2016 13:45
[2016-11-10] MEDS: ACETAMINOPHEN/HYDROcodone 325 MG/7.5 MG TAB PO PRN ×3 (13:49→21:54)
[2016-11-10] MEDS ORDERED: BENZOCAINE 6 MG/MENTHOL 10 MG LOZENGE BUCCAL ONE (14:00)
[2016-11-10] MEDS ORDERED: BENZOCAINE 6 MG/MENTHOL 10 MG LOZENGE BUCCAL PRN (15:00)
[2016-11-10] MEDS: LORazepam 1 MG TAB PO PRN (16:37)
[2016-11-10] MEDS: ENOXAPARIN SODIUM 40 MG/0.4 ML SYRINGE SQ SCH (20:33)
[2016-11-11] VITALS (7 sets, daily range): BP systolic 95–113; BP diastolic 53–71; PULSE 73–102; RESP 16–22; TEMP 97.5–98.8; O2SAT 94–97
[2016-11-11] MEDS: DILTIAZEM HCL 60 MG TAB PO SCH ×4 (02:00→21:08)
[2016-11-11] MEDS: ACETAMINOPHEN/HYDROcodone 325 MG/7.5 MG TAB PO PRN ×5 (04:34→22:05)
[2016-11-11] MEDS: hydrALAZINE HCL 50 MG TAB PO SCH ×3 (05:56→22:00)
[2016-11-11] MEDS: CHLORHEXIDINE 0.12% (ORAL KIT) 15 ML CUP MT SCH ×2 (07:44→20:00)
[2016-11-11] MEDS: BENEPROTEIN POWDER 1 PACK G-TUBE SCH ×3 (07:45→17:53)
[2016-11-11] MEDS: RESP: BUDESONIDE 0.5 MG/2 ML NEB NEB SCH ×2 (08:20→19:23)
[2016-11-11] MEDS: GABAPENTIN 300 MG CAP PO SCH ×3 (08:50→17:51)
[2016-11-11] MEDS: BUDESONIDE-FORMOTEROL 160/4.5 MCG INHALER INH SCH ×2 (08:51→21:22)
[2016-11-11] MEDS: TIOTROPIUM BROMIDE 18 MCG INH INH SCH (08:51)
[2016-11-11] MEDS: SODIUM CHLORIDE 0.9% FLUSH 10 ML FLUSH IV FLUSH SCH ×2 (08:51→21:09)
[2016-11-11] MEDS: PANTOPRAZOLE SOD 20 MG DELAYED RELEASE TAB PO SCH (08:51)
[2016-11-11] MEDS: POTASSIUM CHLORIDE 20 MEQ CONTROLLED RELEASE TAB PO SCH ×2 (08:51→21:08)
[2016-11-11] MEDS: LORazepam 1 MG TAB PO PRN ×2 (08:52→17:51)
--- NOTE | 2016-11-11 12:48 | PD.WCN.NOT ---
Wound Consult Description: Consult placed per Dr Yo for "stoma" Communicated with: Patient GARMENT FITTER Recommendation: Encouraged patient to open and close pouch at top to release air. Please call staff for assistance in emptying ileostomy pouch of effluent when 1/ 2-1/3 full Have patient participate when ileostomy care is taking place especially when emptying and changing appliance when mold press operator is not available Allow patient to watch Ostomy care with her mirror when changing appliance and have significant other observe if available Additional Information: Patient seen on [address] [place] [address] earlier this morning for ostomy assessment. Ostomy Type: Ileostomy Surgeon: Victor Manuel Yo MD Date of Surgery: Oct 13, 2016 Complete: Starter kit, Education materials, Other (patient instructed to call staff when pouch begins to feel heavy or is in need of emptying/releasing air etc.) Educated patient on: Learn to change the appliance with assistance when needed Practice emptying pouch of effluent The pouch can be changed and/or discarded without removing the barrier from the abdomen Additional information Patient seen on [address] [place] [address] for ostomy assessment. Patient was sitting up in chair with GARMENT FITTER taking vital signs. Patient states that she was all cleaned up and feels great today. GARMENT FITTER states that she just emptied the bag. Patient states that the entire appliance was changed last night after ad writer changed it yesterday. When asked why the patient states that they could not empty it with the pouch that was on there. It was explained to the patient that supplies had been ordered yesterday and was told that the bag could have been removed and a new pouch put on without changing the entire appliance. The appliance is a 2 piece and therefore the pouch and barrier are separate. Yesterday the only supplies available were the 05/02" with urostomy pouch, that is why supplies were ordered, so that the pouch could be changed out. Patient voices that she needs to start learning how to empty and change the appliance herself. It was explained that Wednesday we would change it together again. Ostomy appliance is mostly intact without leaks, however does not look secure. Patient states that it is fine for now and states some itching underneath appliance but that it comes and goes. It was explained to patient that it could be because of the unnecessary appliance changes, causing irritation from the frequent barrier/ wafer removal instead of changing out the pouch as instructed previously. Stoma is red, round, moist, functioning with green soft effluent noted to newly cleansed pouch. Appliance is somewhat intact without leaks noted. Nell Nur [facility] Nov 11, 2016 12:48
--- NOTE | 2016-11-11 14:01 | HHI.PR ---
Subjective Remarks The patient was sitting up in a chair. She requested to have a form signed for work. She said she has been tremulous since she got here. She says she slept very well overnight. She says her pain is controlled. No acute complaints. Objective Vitals Vital Signs Date Time Temp Pulse Resp B/P (MAP) Pulse Ox O2 Delivery O2 Flow Rate FiO2 11/11/16 12:00 98.1 102 22 101/68 (79) 97 11/11/16 08:00 97.9 73 20 103/68 (80) 95 11/11/16 04:00 Room Air 11/11/16 04:00 97.5 81 18 98/59 (72) 96 11/11/16 00:00 97.9 77 18 95/53 (67) 96 11/11/16 00:00 Room Air 11/10/16 20:00 98.2 73 16 132/66 (88) 98 11/10/16 20:00 Room Air 11/10/16 16:18 97.7 88 17 109/60 (76) 94 11/10/16 16:00 Room Air I/O 11/10/16 11/10/16 11/10/16 11/11/16 11/11/16 11/11/16 07:00 15:00 23:00 07:00 15:00 23:00 Intake Total 600 ml Output Total 400 ml 600 ml Balance -400 ml 600 ml -600 ml Intake Oral 600 ml Output Urine Total 200 ml 600 ml Stool Total 200 ml # Voids 2 3 Result Diagram: 11/09/1625 11/09/16 0525 Imaging Last Impressions Chest X-Ray 10/27/16 0000 Signed Impressions: Service Date/Time: Thursday, October 27, 2016 14:49 - CONCLUSION: Normal examination. Jamie Tobin Jr., MD Cervical Spine MRI 10/21/16 0000 Signed Impressions: Service Date/Time: Friday, October 21, 2016 08:43 - CONCLUSION: 1. Motion degraded exam. 2. No acute abnormality. 3. Mild degenerative disc disease without neural impingement. Jamie Tobin Jr., MD Brain MRI 10/21/16 0000 Signed Impressions: Service Date/Time: Friday, October 21, 2016 08:43 - CONCLUSION: 1. Unchanged nonspecific white matter lesions as detailed above. Differential diagnostic considerations remains quite broad. The 2 most likely etiologies would be a demyelinating process such as multiple sclerosus versus chronic small vessel ischemic change. Jamie Tobin Jr., MD Abdomen/Pelvis CT 10/13/16 0000 Signed Impressions: Service Date/Time: Thursday, October 13, 2016 13:13 - CONCLUSION: 1. Pneumoperitoneum likely from the hepatic flexure region of the colon. Pneumatosis was seen in this region on the prior exam. This area now appears thickened. 2. Induration around the pancreas concerning for pancreatitis. 3. New consolidation or atelectasis at the medial left lung base. Oliver Soria MD Abdomen X-Ray 10/12/16 0000 Signed Impressions: Service Date/Time: Wednesday, October 12, 2016 07:42 - CONCLUSION: Nasogastric tube in good position, probably ileus. Rico Boston MD FACR Objective Remarks GENERAL: NAD, A&Ox3 HEAD: Normocephalic. NECK: Supple, trachea midline. No lymphadenopathy. EYES: No scleral icterus. No injection or drainage. CARDIOVASCULAR: Regular rate and rhythm without murmurs, gallops, or rubs. RESPIRATORY: Breath sounds equal bilaterally. No accessory muscle use. GASTROINTESTINAL: Abdomen soft, non-tender, nondistended. Ileostomy in place with brown liquid noted. MUSCULOSKELETAL: No cyanosis, or edema. SKIN: Warm and dry. NEURO: Global weakness, weakness of upper and lower extremities greater in the upper extremities, numbness in lower extremities. Tremulous. PSYCH: Mood and affect appropriate. Procedures Endotracheal Intubation and extubation. Expressive Colonoscopy Ileostomy Medications and IVs Current Medications Medications (Trade) Dose Ordered Sig/Amadou Route Start Time Stop Time Status Last Admin (NS Flush) 2 ml UNSCH PRN IV FLUSH 09/25/16 06:15 10/24/16 03:08 (NS Flush) 2 ml BID IV FLUSH 09/25/16 09:00 11/11/16 08:51 (Narcan Inj) 0.4 mg UNSCH PRN IV 09/25/16 06:15 (Lopressor) 50 mg BID PO 09/25/16 09:00 Future Hold 09/25/16 19:41 (Prinivil) 10 mg DAILY PO 09/25/16 09:00 Future Hold 09/25/16 08:32 (Hydrodiuril) 12.5 mg DAILY PO 09/25/16 09:00 Future Hold 09/25/16 08:32 (Pulmicort Respule Neb) 0.5 mg Q12HR NEB NEB 09/25/16 12:45 11/11/16 08:20 (Spiriva Inh) 18 mcg DAILY INH 09/25/16 12:45 11/11/16 08:51 (Cardizem) 60 mg Q6H PO 09/29/16 14:00 11/10/16 20:33 (Reglan Inj) 10 mg Q8HR IV PUSH 10/01/16 09:00 Future Hold 10/13/16 06:23 (Peridex 0.12% Liq) 15 ml BID@08,20 MT 10/03/16 20:00 10/31/16 08:00 (Vasotec Inj) 1.25 mg Q6H PRN IV PUSH 10/04/16 16:00 (Apresoline) 50 mg Q8HR PO 10/13/16 14:00 11/10/16 21:52 (Zofran Inj) 4 mg Q6H PRN IV PUSH 10/13/16 11:15 10/22/16 05:09 (Beneprotein Powder) 1 pack TID G-TUBE 10/14/16 13:00 11/06/16 13:00 (KCl) 20 meq Q12HR PO 10/20/16 09:00 11/11/16 08:51 (Lovenox Inj) 40 mg Q24H SQ 10/22/16 20:00 11/10/16 20:33 (Symbicort 160-4.5 Inh) 1 puff Q12HR INH 10/23/16 21:00 11/11/16 08:51 (Duoneb Neb) 1 ampule Q2HR NEB PRN NEB 10/23/16 15:30 11/10/16 07:27 (Tylenol) 650 mg Q4H PRN PO 10/28/16 12:15 (Ativan) 0.5 mg HS PRN PO 11/08/16 11:15 11/10/16 23:15 (Neurontin) 300 mg TID PO 11/09/16 18:00 11/11/16 13:16 ([place] 7.5-325 Mg) 1 tab Q4H PRN PO 11/10/16 13:15 11/11/16 13:17 (Ativan) 1 mg Q8H PRN PO 11/10/16 16:15 11/11/16 08:52 (Protonix) 40 mg DAILY PO 11/11/16 09:00 11/11/16 08:51 (Chloraseptic Jerrell) 1 lozenge UNSCH PRN BUCCAL 11/10/16 15:00 A/P Assessment and Plan 56-year-old female admitted secondary to respiratory distress and COPD and pneumonia. GI complications, now status post ileostomy. Continue physical therapy. C-spine MRI is within normal limits. MRI of brain shows abnormal findings which are not specific (scattered white matter lesions, multiple sclerosis versus ischemic changes). Symbicort and albuterol resumed. Continue to follow patient's neuro status. Paraplegia Critical Illness Polyneuropathy as per Neurology specialist, secondary to bedridden status plus steroids plus infection. MRI brain completed and per Neuro , do not think its MS or cord lesion, also less likely MS as no improvement on steroids. 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 - Continue participation with PT and OT. Requested PT to work with pt 7 days a week. - Continue gabapentin for paresthesias. Increased to 300 mg TID. - Limit steroid use and repeat MRI in 2 to 3 months. Acute hypercarbic respiratory failure/ COPD exacerbation, resolved/ HCAP, LLL infiltrate, resolved Extubated 10/10. Pulmonary and ID following - stable from pulm standpoint and ID has signed off - Continue bronchodilators, Mucolytic and Incentive spirometry. - Continue Duonebs. - Oxygen as needed. Chest tightness, chronic Atypical, worse after meals and with lying supine, fullness after meals. Unlikely of cardiac origin. Suspect GI etiology. CXR 09/30 reviewed and is normal examination. EKG with NSR. Echo 09/10/15 EF 55-60%, normal wall motion, PA peak pressure 35mm Hg. - Recommend patient follow up with GI as outpatient for further evaluation. Colonic ileus Status post ileostomy placed 10/13/16. - Regular diet. - completed course of Levaquin and Flagyl 10/24/16 as per ID specialist. - Surgery following. History of tobacco abuse Currently weaned off all nicotine. - Strongly recommended to stop smoking. Hypertension Controlled. - Lisinopril and Lopressor on hold due to relative hypotension. - continue on Cardizem 60mg q6h and Hydralazine 50mg q8hr. Transaminitis Stable. - monitor as indicated. Low TSH, low free T3 and low free T4 Unsure of clinical significance especially in light of normal MRI findings. - recommend repeat as outpatient in 2 months. Anemia Hgb has been decreasing. Possibly anemia of chronic disease. - monitor as needed. Anxiety/ Insomnia Chronic. - Ativan and Ambien as needed. Improved. Hoarse voice Likely s/t intubation. Possible laryngeal nerve injury. Possible GERD. - increase PPI. - Lozenges as needed. - outpt ENT follow-up. DVT prophylaxis SCDs Lovenox 40mg sq Discharge Planning Awaiting medicaid application. Will need placement at this point Leo Garner DO Nov 11, 2016 14:01
--- NOTE | 2016-11-11 19:04 | HHI.PR ---
Subjective Remarks 56 YOWF with VDRF, , extubated 10/10 no Fever Appetite good Breathing nebs helps Objective Vital Signs Vital Signs Date Time Temp Pulse Resp B/P (MAP) Pulse Ox O2 Delivery O2 Flow Rate FiO2 11/11/16 16:00 Room Air 11/11/16 16:00 98.3 88 17 113/71 (85) 96 11/11/16 13:17 Room Air 11/11/16 12:00 98.1 102 22 101/68 (79) 97 11/11/16 08:00 97.9 73 20 103/68 (80) 95 11/11/16 08:00 Room Air 11/11/16 04:00 Room Air 11/11/16 04:00 97.5 81 18 98/59 (72) 96 11/11/16 00:00 97.9 77 18 95/53 (67) 96 11/11/16 00:00 Room Air 11/10/16 20:00 98.2 73 16 132/66 (88) 98 11/10/16 20:00 Room Air I/O 11/10/16 11/10/16 11/10/16 11/11/16 11/11/16 11/11/16 07:00 15:00 23:00 07:00 15:00 23:00 Intake Total 600 ml Output Total 400 ml 600 ml Balance -400 ml 600 ml -600 ml Intake Oral 600 ml Output Urine Total 200 ml 600 ml Stool Total 200 ml # Voids 2 3 Result Diagram: 11/09/1652411/09/16 05 Objective Remarks GENERAL: MBMN WF, on Vent SKIN: Warm and dry. HEAD: Normocephalic. EYES: No scleral icterus. No injection or drainage. NECK: Supple, trachea midline. No JVD or lymphadenopathy. CARDIOVASCULAR: Regular rate and rhythm without murmurs, gallops, or rubs. RESPIRATORY: Breath sounds equal bilaterally. No accessory muscle use. GASTROINTESTINAL: Abdomen soft, non-tender, nondistended. Ileostomy MUSCULOSKELETAL: No cyanosis, or edema. BACK: Nontender without obvious deformity. No CVA tenderness. A/P Assessment and Plan VDRF, s/p extubation 10/10 COPD Exac HTN Nicotine use S/p Exp Lap, ileostomy PLAN Stable off Abx Duonebs qid Encourage PO. Physical therapy. Cont Budesonide and Duonebs Aneja,Abdirahman Dev MD Nov 11, 2016 19:04
[2016-11-11] MEDS: ENOXAPARIN SODIUM 40 MG/0.4 ML SYRINGE SQ SCH (21:09)
[2016-11-11] MEDS: LORazepam 0.5 MG TAB PO PRN (23:12)
[2016-11-12] VITALS (7 sets, daily range): BP systolic 95–143; BP diastolic 51–76; PULSE 69–97; RESP 16–20; TEMP 98.2–98.6; O2SAT 93–96
[2016-11-12] MEDS: DILTIAZEM HCL 60 MG TAB PO SCH ×4 (02:00→20:00)
[2016-11-12] MEDS: LORazepam 1 MG TAB PO PRN ×3 (05:05→21:38)
[2016-11-12] MEDS: hydrALAZINE HCL 50 MG TAB PO SCH ×3 (05:18→20:37)
[2016-11-12] MEDS: CHLORHEXIDINE 0.12% (ORAL KIT) 15 ML CUP MT SCH ×2 (08:00→20:00)
[2016-11-12] MEDS: RESP: BUDESONIDE 0.5 MG/2 ML NEB NEB SCH ×2 (08:33→19:53)
[2016-11-12] MEDS: BENEPROTEIN POWDER 1 PACK G-TUBE SCH ×3 (09:00→17:29)
[2016-11-12] MEDS: SODIUM CHLORIDE 0.9% FLUSH 10 ML FLUSH IV FLUSH SCH ×2 (09:00→20:39)
[2016-11-12] MEDS: TIOTROPIUM BROMIDE 18 MCG INH INH SCH (09:00)
[2016-11-12] MEDS: BUDESONIDE-FORMOTEROL 160/4.5 MCG INHALER INH SCH ×2 (09:00→20:39)
[2016-11-12] MEDS: GABAPENTIN 300 MG CAP PO SCH ×3 (09:25→17:30)
[2016-11-12] MEDS: PANTOPRAZOLE SOD 20 MG DELAYED RELEASE TAB PO SCH (09:25)
[2016-11-12] MEDS: POTASSIUM CHLORIDE 20 MEQ CONTROLLED RELEASE TAB PO SCH ×2 (09:25→20:38)
[2016-11-12] MEDS: ACETAMINOPHEN/HYDROcodone 325 MG/7.5 MG TAB PO PRN ×4 (09:26→21:38)
[2016-11-12] MEDS: RESP: ALBUTEROL 2.5 MG/IPRATROPIUM 0.5 MG NEB (PRN) NEB (11:29)
--- NOTE | 2016-11-12 12:20 | HHI.PR ---
Subjective Remarks The pt's friend was at the bedside. The pt was nervous. She said she has chronic left sided abdominal pain that has been there for 6 years. She would like to know what it is. Her friend also wanted to know why she had to have the ileostomy placed. Her questions were answered to the best of my ability. Objective Vitals Vital Signs Date Time Temp Pulse Resp B/P (MAP) Pulse Ox O2 Delivery O2 Flow Rate FiO2 11/12/16 12:00 98.2 97 18 143/76 (98) 96 11/12/16 08:00 98.3 69 18 106/56 (73) 96 11/12/16 08:00 Room Air 11/12/16 04:00 98.2 69 16 103/51 (68) 93 11/12/16 00:00 Room Air 11/12/16 00:00 98.4 79 16 95/52 (66) 96 11/11/16 20:00 Room Air 11/11/16 20:00 98.8 89 16 113/65 (81) 96 11/11/16 19:25 94 11/11/16 16:00 Room Air 11/11/16 16:00 98.3 88 17 113/71 (85) 96 11/11/16 13:17 Room Air I/O 11/11/16 11/11/16 11/11/16 11/12/16 11/12/16 11/12/16 07:00 15:00 23:00 07:00 15:00 23:00 Intake Total 500 ml 360 ml Output Total 600 ml 250 ml Balance -600 ml 500 ml 110 ml Intake Oral 500 ml 360 ml Output Urine Total 600 ml Stool Total 250 ml # Voids 5 Result Diagram: 11/09/16 0525 11/09/16 0525 Imaging Last Impressions Chest X-Ray 10/27/16 0000 Signed Impressions: Service Date/Time: Thursday, October 27, 2016 14:49 - CONCLUSION: Normal examination. Jamie Tobin Jr., MD Cervical Spine MRI 10/21/16 0000 Signed Impressions: Service Date/Time: Friday, October 21, 2016 08:43 - CONCLUSION: 1. Motion degraded exam. 2. No acute abnormality. 3. Mild degenerative disc disease without neural impingement. Jamie Tobin Jr., MD Brain MRI 10/21/16 0000 Signed Impressions: Service Date/Time: Friday, October 21, 2016 08:43 - CONCLUSION: 1. Unchanged nonspecific white matter lesions as detailed above. Differential diagnostic considerations remains quite broad. The 2 most likely etiologies would be a demyelinating process such as multiple sclerosus versus chronic small vessel ischemic change. Jamie Tobin Jr., MD Abdomen/Pelvis CT 10/13/16 0000 Signed Impressions: Service Date/Time: Thursday, October 13, 2016 13:13 - CONCLUSION: 1. Pneumoperitoneum likely from the hepatic flexure region of the colon. Pneumatosis was seen in this region on the prior exam. This area now appears thickened. 2. Induration around the pancreas concerning for pancreatitis. 3. New consolidation or atelectasis at the medial left lung base. Oliver Soria MD Abdomen X-Ray 10/12/16 0000 Signed Impressions: Service Date/Time: Wednesday, October 12, 2016 07:42 - CONCLUSION: Nasogastric tube in good position, probably ileus. Rico Boston MD FACR Objective Remarks GENERAL: NAD, A&Ox3 HEAD: Normocephalic. NECK: Supple, trachea midline. No lymphadenopathy. EYES: No scleral icterus. No injection or drainage. CARDIOVASCULAR: Regular rate and rhythm without murmurs, gallops, or rubs. RESPIRATORY: Breath sounds equal bilaterally. No accessory muscle use. GASTROINTESTINAL: Abdomen soft, slight tenderness in the LUQ, nondistended. Ileostomy in place with brown liquid noted. MUSCULOSKELETAL: No cyanosis, or edema. SKIN: Warm and dry. NEURO: Global weakness, weakness of upper and lower extremities greater in the upper extremities, numbness in lower extremities. Tremulous. PSYCH: Anxious. Procedures Endotracheal Intubation and extubation. Expressive Colonoscopy Ileostomy Medications and IVs Current Medications Medications (Trade) Dose Ordered Sig/Amadou Route Start Time Stop Time Status Last Admin (NS Flush) 2 ml UNSCH PRN IV FLUSH 09/25/16 06:15 10/24/16 03:08 (NS Flush) 2 ml BID IV FLUSH 09/25/16 09:00 11/12/16 09:00 (Narcan Inj) 0.4 mg UNSCH PRN IV 09/25/16 06:15 (Lopressor) 50 mg BID PO 09/25/16 09:00 Future Hold 09/25/16 19:41 (Prinivil) 10 mg DAILY PO 09/25/16 09:00 Future Hold 09/25/16 08:32 (Hydrodiuril) 12.5 mg DAILY PO 09/25/16 09:00 Future Hold 09/25/16 08:32 (Pulmicort Respule Neb) 0.5 mg Q12HR NEB NEB 09/25/16 12:45 11/12/16 08:33 (Spiriva Inh) 18 mcg DAILY INH 09/25/16 12:45 11/11/16 08:51 (Cardizem) 60 mg Q6H PO 09/29/16 14:00 11/11/16 21:08 (Reglan Inj) 10 mg Q8HR IV PUSH 10/01/16 09:00 Future Hold 10/13/16 06:23 (Peridex 0.12% Liq) 15 ml BID@08,20 MT 10/03/16 20:00 10/31/16 08:00 (Vasotec Inj) 1.25 mg Q6H PRN IV PUSH 10/04/16 16:00 (Apresoline) 50 mg Q8HR PO 10/13/16 14:00 11/10/16 21:52 (Zofran Inj) 4 mg Q6H PRN IV PUSH 10/13/16 11:15 10/22/16 05:09 (Beneprotein Powder) 1 pack TID G-TUBE 10/14/16 13:00 11/06/16 13:00 (KCl) 20 meq Q12HR PO 10/20/16 09:00 11/12/16 09:25 (Lovenox Inj) 40 mg Q24H SQ 10/22/16 20:00 11/11/16 21:09 (Symbicort 160-4.5 Inh) 1 puff Q12HR INH 10/23/16 21:00 11/12/16 09:00 (Duoneb Neb) 1 ampule Q2HR NEB PRN NEB 10/23/16 15:30 11/12/16 11:29 (Tylenol) 650 mg Q4H PRN PO 10/28/16 12:15 (Ativan) 0.5 mg HS PRN PO 11/08/16 11:15 11/11/16 23:12 (Neurontin) 300 mg TID PO 11/09/16 18:00 11/12/16 09:25 ([place] 7.5-325 Mg) 1 tab Q4H PRN PO 11/10/16 13:15 11/12/16 09:26 (Ativan) 1 mg Q8H PRN PO 11/10/16 16:15 11/12/16 05:05 (Protonix) 40 mg DAILY PO 11/11/16 09:00 11/12/16 09:25 (Chloraseptic Jerrell) 1 lozenge UNSCH PRN BUCCAL 11/10/16 15:00 A/P Assessment and Plan 56-year-old female admitted secondary to respiratory distress and COPD and pneumonia. GI complications, now status post ileostomy. Continue physical therapy. C-spine MRI is within normal limits. MRI of brain shows abnormal findings which are not specific (scattered white matter lesions, multiple sclerosis versus ischemic changes). Symbicort and albuterol resumed. Continue to follow patient's neuro status. Paraplegia Critical Illness Polyneuropathy as per Neurology specialist, secondary to bedridden status plus steroids plus infection. MRI brain completed and per Neuro , do not think its MS or cord lesion, also less likely MS as no improvement on steroids. 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 - Continue participation with PT and OT. Requested PT to work with pt 7 days a week. - Continue gabapentin for paresthesias. Increased to 300 mg TID. - Limit steroid use and repeat MRI in 2 to 3 months. Acute hypercarbic respiratory failure/ COPD exacerbation, resolved/ HCAP, LLL infiltrate, resolved Extubated 10/10. Pulmonary and ID following - stable from pulm standpoint and ID has signed off - Continue bronchodilators, Mucolytic and Incentive spirometry. - Continue Duonebs. - Oxygen as needed. Chest tightness, chronic Atypical, worse after meals and with lying supine, fullness after meals. Unlikely of cardiac origin. Suspect GI etiology. CXR 09/30 reviewed and is normal examination. EKG with NSR. Echo 09/10/15 EF 55-60%, normal wall motion, PA peak pressure 35mm Hg. - Recommend patient follow up with GI as outpatient for further evaluation. Colonic ileus Status post ileostomy placed 10/13/16 for pneumoperitoneum/ ileus. - Regular diet. - completed course of Levaquin and Flagyl 10/24/16 as per ID specialist. - Surgery following. Chronic left sided abdominal pain The pt has had this pain for 6 years but complaining of worsening over the past few days. - check LFTs, lipase. - continue PPI. - consider repeating CT. History of tobacco abuse Currently weaned off all nicotine. - Strongly recommended to stop smoking. Hypertension Controlled. - Lisinopril and Lopressor on hold due to relative hypotension. - continue on Cardizem 60mg q6h and Hydralazine 50mg q8hr. Low TSH, low free T3 and low free T4 Unsure of clinical significance especially in light of normal MRI findings. - recommend repeat as outpatient in 2 months. Anemia Hgb has been decreasing. Possibly anemia of chronic disease. - monitor as needed. Anxiety/ Insomnia Chronic. - Ativan and Ambien as needed. Improved. Hoarse voice Likely s/t intubation. Possible laryngeal nerve injury. Possible GERD. - increase PPI. - Lozenges as needed. - outpt ENT follow-up. DVT prophylaxis SCDs Lovenox 40mg sq Discharge Planning Awaiting medicaid application. Will need placement at this point Leo Garner DO Nov 12, 2016 12:20
--- NOTE | 2016-11-12 15:48 | PD.WCN.NOT ---
Wound Consult Description: Consult placed per Dr Yo for "stoma" Communicated with: Patient Recommendation: Encouraged patient to open and close pouch at top to release air. Please call staff for assistance in emptying ileostomy pouch of effluent when 1/ 2-1/3 full Have patient participate when ileostomy care is taking place especially when emptying and changing appliance when ordnance officer is not available Allow patient to watch Ostomy care with her mirror when changing appliance and have significant other observe if available Additional Information: Patient seen on [address] [place] [address] for ostomy assessment and teaching Ostomy Type: Ileostomy Surgeon: Victor Manuel Yo MD Date of Surgery: Oct 13, 2016 Complete: Starter kit, Education materials, Other (patient instructed to call staff when pouch begins to feel heavy or is in need of emptying/releasing air etc.) Educated patient on: Releasing air from the top of the pouch where it is attached to the low pressure adaptor. Emptying the pouch when 1/3-1/2 full Additional information Patient seen on [address] [place] [address] for ostomy assessment. Appliance is noted to be intact with 1/2 full of effluent and air in pouch. Patient instructed how to release air from top of pouch were there is a tab to help guide the opening of the appliance. Patient demonstrated opening the pouch at the top and gently pushing on the pouch to get the air out. Patient closed pouch by snapping it back into place. Patient was shown that the pouch was 1/2 full and needed to be emptied. A graduate was obtained from bathroom, placed under [facility] appliance, and the pouch was opened from the bottom and assisted patient with emptying the pouch. Once pouch was emptied of effluent the end was wiped clean with a papertowel. Patient closed pouch and folded it up into the cloth portion of the pouch. Nell Nur [facility] Nov 12, 2016 15:48
--- NOTE | 2016-11-12 16:27 | HHI.PR ---
Subjective Remarks 56 YOWF with VDRF, , extubated 10/10 no Fever Appetite good Breathing nebs helps Being trained for ilostomy care Objective Vital Signs Vital Signs Date Time Temp Pulse Resp B/P (MAP) Pulse Ox O2 Delivery O2 Flow Rate FiO2 11/12/16 12:00 98.2 97 18 143/76 (98) 96 11/12/16 12:00 Room Air 11/12/16 08:00 98.3 69 18 106/56 (73) 96 11/12/16 08:00 Room Air 11/12/16 04:00 98.2 69 16 103/51 (68) 93 11/12/16 00:00 Room Air 11/12/16 00:00 98.4 79 16 95/52 (66) 96 11/11/16 20:00 Room Air 11/11/16 20:00 98.8 89 16 113/65 (81) 96 11/11/16 19:25 94 I/O 11/11/16 11/11/16 11/11/16 11/12/16 11/12/16 11/12/16 07:00 15:00 23:00 07:00 15:00 23:00 Intake Total 500 ml 360 ml Output Total 600 ml 250 ml Balance -600 ml 500 ml 110 ml Intake Oral 500 ml 360 ml Output Urine Total 600 ml Stool Total 250 ml # Voids 5 Result Diagram: 11/09/1652411/09/16524 Objective Remarks GENERAL: MBMN WF, on Vent SKIN: Warm and dry. HEAD: Normocephalic. EYES: No scleral icterus. No injection or drainage. NECK: Supple, trachea midline. No JVD or lymphadenopathy. CARDIOVASCULAR: Regular rate and rhythm without murmurs, gallops, or rubs. RESPIRATORY: Breath sounds equal bilaterally. No accessory muscle use. GASTROINTESTINAL: Abdomen soft, non-tender, nondistended. Ileostomy MUSCULOSKELETAL: No cyanosis, or edema. BACK: Nontender without obvious deformity. No CVA tenderness. A/P Assessment and Plan VDRF, s/p extubation 10/10 COPD Exac HTN Nicotine use S/p Exp Lap, ileostomy PLAN Stable off Abx Duonebs qid Encourage PO. Physical therapy. Cont Budesonide and Duonebs Abdirahman Marquez MD Nov 12, 2016 16:27
[2016-11-12] MEDS: ENOXAPARIN SODIUM 40 MG/0.4 ML SYRINGE SQ SCH (20:38)
[2016-11-12 21:28] LABS: ANION GAP 9 MEQ/L (5-15); AST (GOT) 40 U/L (15-37); BICARBONATE 24.4 MEQ/L (21.0-32.0); BLOOD UREA NITROGEN 6 MG/DL (7-18); CHLORIDE 103 MEQ/L (98-107); GLOMERULAR FILTRATION RATE 110 ML/MIN (>89); POTASSIUM 3.6 MEQ/L (3.5-5.1); SODIUM (NA) 136 MEQ/L (136-145)
[2016-11-12 21:30] LABS: ALT (GPT) 84 U/L (10-53)
[2016-11-12 21:31] LABS: ALKALINE PHOSPHATASE 140 U/L (45-117); TOTAL BILIRUBIN ADULT 0.3 MG/DL (0.2-1.0)
[2016-11-13] VITALS (7 sets, daily range): BP systolic 92–145; BP diastolic 52–95; PULSE 77–100; RESP 16–20; TEMP 97.9–98.5; O2SAT 93–98
[2016-11-13] MEDS: DILTIAZEM HCL 60 MG TAB PO SCH ×3 (02:00→13:46)
[2016-11-13] MEDS: hydrALAZINE HCL 50 MG TAB PO SCH ×3 (05:51→22:00)
[2016-11-13] MEDS: RESP: BUDESONIDE 0.5 MG/2 ML NEB NEB SCH ×2 (07:55→20:00)
[2016-11-13] MEDS: POTASSIUM CHLORIDE 20 MEQ CONTROLLED RELEASE TAB PO SCH (08:00)
[2016-11-13] MEDS: ACETAMINOPHEN/HYDROcodone 325 MG/7.5 MG TAB PO PRN ×3 (08:00→17:32)
[2016-11-13] MEDS: CHLORHEXIDINE 0.12% (ORAL KIT) 15 ML CUP MT SCH ×2 (08:00→20:00)
[2016-11-13] MEDS: GABAPENTIN 300 MG CAP PO SCH ×3 (08:00→17:32)
[2016-11-13] MEDS: PANTOPRAZOLE SOD 20 MG DELAYED RELEASE TAB PO SCH (08:00)
[2016-11-13] MEDS: BUDESONIDE-FORMOTEROL 160/4.5 MCG INHALER INH SCH (08:02)
[2016-11-13] MEDS: BENEPROTEIN POWDER 1 PACK G-TUBE SCH ×3 (08:02→17:33)
[2016-11-13] MEDS: LORazepam 1 MG TAB PO PRN ×2 (08:02→16:17)
[2016-11-13] MEDS: TIOTROPIUM BROMIDE 18 MCG INH INH SCH (08:02)
[2016-11-13] MEDS: SODIUM CHLORIDE 0.9% FLUSH 10 ML FLUSH IV FLUSH SCH (08:06)
[2016-11-13] MEDS ORDERED: NORMOSOL R INJ 1,000 ML IV ONE (12:00)
[2016-11-13] MEDS ORDERED: ONDANSETRON HCL 4 MG/2 ML VIAL IV PUSH ONE (12:00)
[2016-11-13] MEDS ORDERED: PROPOFOL 200 MG/20 ML AMP IV ONE (12:00)
[2016-11-13] MEDS ORDERED: NEOSTIGMINE 3 MG/3 ML SYR IV ONE (12:00)
[2016-11-13] MEDS ORDERED: PHENYLEPH/NS 1000 MCG/10 ML SYR IV ONE (12:00)
[2016-11-13] MEDS ORDERED: ePHEDrine/NS 25 MG/5 ML SYR IV ONE (12:00)
--- NOTE | 2016-11-13 13:11 | HHI.PR ---
Subjective Remarks The patient said her abdominal pain was better but she was still curious as to why she still has over 6 years. It is on the left side and it comes and goes. She was now she's getting strong enough to go home. She says she is still weak but she is trying to walk better every day. Objective Vitals Vital Signs Date Time Temp Pulse Resp B/P (MAP) Pulse Ox O2 Delivery O2 Flow Rate FiO2 11/13/16 12:00 98.2 86 20 106/60 (75) 94 11/13/16 08:20 Room Air 11/13/16 08:00 98.4 77 17 103/57 (72) 96 11/13/16 07:57 96 21 11/13/16 04:00 98.3 86 16 101/59 (73) 94 11/13/16 00:00 98.4 83 20 92/52 (65) 93 11/12/16 20:45 Room Air 11/12/16 20:00 98.6 92 20 100/62 (75) 93 11/12/16 19:55 93 21 11/12/16 17:34 Room Air 11/12/16 16:00 98.6 89 18 99/57 (71) 93 I/O 11/12/16 11/12/16 11/12/16 11/13/16 11/13/16 11/13/16 07:00 15:00 23:00 07:00 15:00 23:00 Intake Total 360 ml 960 ml 440 ml Output Total 250 ml 400 ml 425 ml Balance 110 ml 560 ml 15 ml Intake Oral 360 ml 960 ml 440 ml Output Urine Total 400 ml 425 ml Stool Total 250 ml # Voids 5 # Bowel Movements 1 0 Result Diagram: 11/09/16 0525 11/12/162016 Imaging Last Impressions Chest X-Ray 10/27/16 0000 Signed Impressions: Service Date/Time: Thursday, October 27, 2016 14:49 - CONCLUSION: Normal examination. Jamie Tobin Jr., MD Cervical Spine MRI 10/21/16 0000 Signed Impressions: Service Date/Time: Friday, October 21, 2016 08:43 - CONCLUSION: 1. Motion degraded exam. 2. No acute abnormality. 3. Mild degenerative disc disease without neural impingement. Jamie Tobin Jr., MD Brain MRI 10/21/16 0000 Signed Impressions: Service Date/Time: Friday, October 21, 2016 08:43 - CONCLUSION: 1. Unchanged nonspecific white matter lesions as detailed above. Differential diagnostic considerations remains quite broad. The 2 most likely etiologies would be a demyelinating process such as multiple sclerosus versus chronic small vessel ischemic change. Jamie Tobin Jr., MD Abdomen/Pelvis CT 10/13/16 0000 Signed Impressions: Service Date/Time: Thursday, October 13, 2016 13:13 - CONCLUSION: 1. Pneumoperitoneum likely from the hepatic flexure region of the colon. Pneumatosis was seen in this region on the prior exam. This area now appears thickened. 2. Induration around the pancreas concerning for pancreatitis. 3. New consolidation or atelectasis at the medial left lung base. Oliver Soria MD Abdomen X-Ray 10/12/16 0000 Signed Impressions: Service Date/Time: Wednesday, October 12, 2016 07:42 - CONCLUSION: Nasogastric tube in good position, probably ileus. Rico Boston MD FACR Objective Remarks GENERAL: NAD, A&Ox3 HEAD: Normocephalic. NECK: Supple, trachea midline. No lymphadenopathy. EYES: No scleral icterus. No injection or drainage. CARDIOVASCULAR: Regular rate and rhythm without murmurs, gallops, or rubs. RESPIRATORY: Breath sounds equal bilaterally. No accessory muscle use. GASTROINTESTINAL: Abdomen soft, slight tenderness in the LUQ, nondistended. Ileostomy in place with brown liquid noted. MUSCULOSKELETAL: No cyanosis, or edema. SKIN: Warm and dry. NEURO: Global weakness, weakness of upper and lower extremities greater in the upper extremities, numbness in lower extremities. Tremulous. PSYCH: Anxious. Procedures Endotracheal Intubation and extubation. Expressive Colonoscopy Ileostomy Medications and IVs Current Medications Medications (Trade) Dose Ordered Sig/Amadou Route Start Time Stop Time Status Last Admin (NS Flush) 2 ml UNSCH PRN IV FLUSH 09/25/16 06:15 10/24/16 03:08 (NS Flush) 2 ml BID IV FLUSH 09/25/16 09:00 11/13/16 08:06 (Narcan Inj) 0.4 mg UNSCH PRN IV 09/25/16 06:15 (Lopressor) 50 mg BID PO 09/25/16 09:00 Future Hold 09/25/16 19:41 (Prinivil) 10 mg DAILY PO 09/25/16 09:00 Future Hold 09/25/16 08:32 (Hydrodiuril) 12.5 mg DAILY PO 09/25/16 09:00 Future Hold 09/25/16 08:32 (Pulmicort Respule Neb) 0.5 mg Q12HR NEB NEB 09/25/16 12:45 11/13/16 07:55 (Spiriva Inh) 18 mcg DAILY INH 09/25/16 12:45 11/13/16 08:02 (Cardizem) 60 mg Q6H PO 09/29/16 14:00 11/12/16 13:39 (Reglan Inj) 10 mg Q8HR IV PUSH 10/01/16 09:00 Future Hold 10/13/16 06:23 (Peridex 0.12% Liq) 15 ml BID@08,20 MT 10/03/16 20:00 10/31/16 08:00 (Vasotec Inj) 1.25 mg Q6H PRN IV PUSH 10/04/16 16:00 (Apresoline) 50 mg Q8HR PO 10/13/16 14:00 11/12/16 13:39 (Zofran Inj) 4 mg Q6H PRN IV PUSH 10/13/16 11:15 10/22/16 05:09 (Beneprotein Powder) 1 pack TID G-TUBE 10/14/16 13:00 11/06/16 13:00 (KCl) 20 meq Q12HR PO 10/20/16 09:00 11/13/16 08:00 (Lovenox Inj) 40 mg Q24H SQ 10/22/16 20:00 11/12/16 20:38 (Symbicort 160-4.5 Inh) 1 puff Q12HR INH 10/23/16 21:00 11/13/16 08:02 (Duoneb Neb) 1 ampule Q2HR NEB PRN NEB 10/23/16 15:30 11/12/16 11:29 (Tylenol) 650 mg Q4H PRN PO 10/28/16 12:15 (Ativan) 0.5 mg HS PRN PO 11/08/16 11:15 11/11/16 23:12 (Neurontin) 300 mg TID PO 11/09/16 18:00 11/13/16 12:58 (Oscar 7.5-325 Mg) 1 tab Q4H PRN PO 11/10/16 13:15 11/13/16 12:58 (Ativan) 1 mg Q8H PRN PO 11/10/16 16:15 11/13/16 08:02 (Protonix) 40 mg DAILY PO 11/11/16 09:00 11/13/16 08:00 (Chloraseptic Jerrell) 1 lozenge UNSCH PRN BUCCAL 11/10/16 15:00 A/P Assessment and Plan 56-year-old female admitted secondary to respiratory distress and COPD and pneumonia. GI complications, now status post ileostomy. Continue physical therapy. C-spine MRI is within normal limits. MRI of brain shows abnormal findings which are not specific (scattered white matter lesions, multiple sclerosis versus ischemic changes). Symbicort and albuterol resumed. Continue to follow patient's neuro status. Paraplegia Critical Illness Polyneuropathy as per Neurology specialist, secondary to bedridden status plus steroids plus infection. MRI brain completed and per Neuro , do not think its MS or cord lesion, also less likely MS as no improvement on steroids. 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 - Continue participation with PT and OT. Requested PT to work with pt 7 days a week. - Continue gabapentin for paresthesias. Increased to 300 mg TID. - Limit steroid use and repeat MRI in 2 to 3 months. Acute hypercarbic respiratory failure/ COPD exacerbation, resolved/ HCAP, LLL infiltrate Extubated 10/10. Pulmonary and ID following - stable from pulm standpoint and ID has signed off. Breathing well on room air. - Continue bronchodilators, Mucolytic and Incentive spirometry. - Continue Duonebs. - Oxygen as needed. Chest tightness Atypical, worse after meals and with lying supine, fullness after meals. Unlikely of cardiac origin. Suspect GI etiology. CXR 09/30 reviewed and is normal examination. EKG with NSR. Echo 09/10/15 EF 55-60%, normal wall motion, PA peak pressure 35mm Hg. - Resolved. Colonic ileus Status post ileostomy placed 10/13/16 for pneumoperitoneum/ ileus. - Regular diet. - completed course of Levaquin and Flagyl 10/24/16 as per ID specialist. - Surgery following. Chronic left sided abdominal pain The pt has had this pain for 6 years but complaining of worsening over the past few days. LFTs elevated but stable compared to previous values. Lipase unremarkable. - continue PPI. Add Maalox. - consider repeating CT. - will refer to outpatient gastroenterology and gynecology after discharge for further workup. Pt would likely benefit from an EGD and a rule out of gynecological issues. History of tobacco abuse Currently weaned off all nicotine. - Strongly recommended to stop smoking. Hypertension Controlled. - Lisinopril and Lopressor on hold due to relative hypotension. - continue on Cardizem 60mg q6h and Hydralazine 50mg q8hr. Low TSH, low free T3 and low free T4 Unsure of clinical significance especially in light of normal MRI findings. - recommend repeat as outpatient in 2 months. Anemia Hgb has been decreasing. Possibly anemia of chronic disease. - monitor as needed. Anxiety/ Insomnia Chronic. - Ativan and Ambien as needed. Hoarse voice Likely s/t intubation. Possible laryngeal nerve injury. Possible GERD. - increase PPI. - Lozenges as needed. - outpt ENT follow-up. DVT prophylaxis SCDs Lovenox 40mg sq Discharge Planning Awaiting medicaid application. Apparently the patient has no payer source. She will need to improve with physical therapy in order to go home as she will not have any benefits for rehabilitation. Leo Garner DO Nov 13, 2016 13:11
[2016-11-13] MEDS ORDERED: ALUMINUM/MAGNESIUM/SIMETH 30 ML CUP PO PRN (13:15)
[2016-11-13] MEDS ORDERED: ALUMINUM/MAGNESIUM/SIMETH 30 ML CUP PO ONE (13:30)
--- NOTE | 2016-11-13 14:54 | PD.WCN.NOT ---
Wound Consult Description: Consult placed per Dr Yo for "stoma Communicated with: Patient Recommendation: Encouraged patient to open and close pouch at top to release air. Please call staff for assistance in emptying ileostomy pouch of effluent when 1/ 2-1/3 full Have patient participate when ileostomy care is taking place especially when emptying and changing appliance when [employer] is not available Allow patient to watch Ostomy care with her mirror when changing appliance and have significant other observe if available Additional Information: Patient seen on [address] [place] [address] for Ostomy assessment and appliance change today for leaking barrier. Ostomy Type: Ileostomy Surgeon: Victor Manuel Yo MD Date of Surgery: Oct 13, 2016 Complete: Starter kit, Education materials, Other (patient instructed to call staff when pouch begins to feel heavy or is in need of emptying/releasing air etc.) Educated patient on: Removing appliance when leaking Releasing air from pouch when needed Changing appliance Additional information Patient seen on [address] [place] [address] for ostomy assessment. Upon entering patient room, patient was sitting up in chair attempting to put on new clothes. Ostomy appliance was noted to be coming off and leaking at 3 o'clock. Stoma is measuring 1 1/8". Stoma is red, moist, oval, with long protrusion, functioning with green liquid/soft effluent noted to pouch, lumen noted at 10 o'clock. Appliance was removed, peristomal skin was cleansed with water only. Mucocutaneous junction is unremarkable. Peristomal skin is unremarkable. A new barrier (1 3/4") and pouch was placed without the use of the low pressure adaptor. Appliances in size 1 3/4" ordered for pouch to be changed and for next appliance change, although a 2 1/4" appliance is acceptable as well Nell [facility] Nov 13, 2016 14:54
[2016-11-13] MEDS: RESP: ALBUTEROL 2.5 MG/IPRATROPIUM 0.5 MG NEB (PRN) NEB ×2 (16:28→19:59)
--- NOTE | 2016-11-13 18:47 | HHI.PR ---
Subjective Remarks 56 YOWF with VDRF, , extubated 10/10 no Fever Appetite good Breathing nebs helps Being trained for ilostomy care Sitting on the side of bed, eating dinner Objective Vital Signs Vital Signs Date Time Temp Pulse Resp B/P (MAP) Pulse Ox O2 Delivery O2 Flow Rate FiO2 11/13/16 12:00 98.2 86 20 106/60 (75) 94 11/13/16 08:20 Room Air 11/13/16 08:00 98.4 77 17 103/57 (72) 96 11/13/16 07:57 96 21 11/13/16 04:00 98.3 86 16 101/59 (73) 94 11/13/16 00:00 98.4 83 20 92/52 (65) 93 11/12/16 20:45 Room Air 11/12/16 20:00 98.6 92 20 100/62 (75) 93 11/12/16 19:55 93 21 I/O 11/12/16 11/12/16 11/12/16 11/13/16 11/13/16 11/13/16 07:00 15:00 23:00 07:00 15:00 23:00 Intake Total 360 ml 960 ml 440 ml Output Total 250 ml 400 ml 425 ml Balance 110 ml 560 ml 15 ml Intake Oral 360 ml 960 ml 440 ml Output Urine Total 400 ml 425 ml Stool Total 250 ml # Voids 5 # Bowel Movements 1 0 Result Diagram: 11/09/16 0525 11/12/162016 Objective Remarks GENERAL: MBMN WF, on Vent SKIN: Warm and dry. HEAD: Normocephalic. EYES: No scleral icterus. No injection or drainage. NECK: Supple, trachea midline. No JVD or lymphadenopathy. CARDIOVASCULAR: Regular rate and rhythm without murmurs, gallops, or rubs. RESPIRATORY: Breath sounds equal bilaterally. No accessory muscle use. GASTROINTESTINAL: Abdomen soft, non-tender, nondistended. Ileostomy MUSCULOSKELETAL: No cyanosis, or edema. BACK: Nontender without obvious deformity. No CVA tenderness. A/P Assessment and Plan VDRF, s/p extubation 10/10 COPD Exac HTN Nicotine use S/p Exp Lap, ileostomy PLAN Stable off Abx Duonebs qid Encourage PO. Physical therapy. Cont Budesonide and Duonebs Stable on Abdirahman Grey MD Nov 13, 2016 18:47
[2016-11-14] VITALS (8 sets, daily range): BP systolic 106–114; BP diastolic 57–65; PULSE 77–93; RESP 17–20; TEMP 97.7–98.7; O2SAT 94–98
[2016-11-14] MEDS: ENOXAPARIN SODIUM 40 MG/0.4 ML SYRINGE SQ SCH ×2 (00:46→22:10)
[2016-11-14] MEDS: LORazepam 1 MG TAB PO PRN ×3 (00:46→17:18)
[2016-11-14] MEDS: POTASSIUM CHLORIDE 20 MEQ CONTROLLED RELEASE TAB PO SCH ×3 (00:47→22:10)
[2016-11-14] MEDS: DILTIAZEM HCL 60 MG TAB PO SCH ×6 (00:48→20:00)
[2016-11-14] MEDS: ACETAMINOPHEN/HYDROcodone 325 MG/7.5 MG TAB PO PRN ×5 (00:48→22:11)
[2016-11-14] MEDS: BUDESONIDE-FORMOTEROL 160/4.5 MCG INHALER INH SCH ×3 (00:49→22:10)
[2016-11-14] MEDS: SODIUM CHLORIDE 0.9% FLUSH 10 ML FLUSH IV FLUSH SCH ×3 (00:50→22:10)
[2016-11-14] MEDS: hydrALAZINE HCL 50 MG TAB PO SCH ×3 (05:21→22:00)
[2016-11-14] MEDS: CHLORHEXIDINE 0.12% (ORAL KIT) 15 ML CUP MT SCH ×2 (07:25→08:36)
[2016-11-14] MEDS: BENEPROTEIN POWDER 1 PACK G-TUBE SCH ×3 (07:26→17:18)
[2016-11-14] MEDS: GABAPENTIN 300 MG CAP PO SCH ×3 (08:36→17:18)
[2016-11-14] MEDS: PANTOPRAZOLE SOD 20 MG DELAYED RELEASE TAB PO SCH (08:36)
[2016-11-14] MEDS: TIOTROPIUM BROMIDE 18 MCG INH INH SCH (08:37)
[2016-11-14] MEDS: RESP: ALBUTEROL 2.5 MG/IPRATROPIUM 0.5 MG NEB (PRN) NEB (09:44)
[2016-11-14] MEDS: RESP: BUDESONIDE 0.5 MG/2 ML NEB NEB SCH ×2 (09:48→20:07)
--- NOTE | 2016-11-14 12:30 | HHI.PR ---
Subjective Remarks No acute events overnight. Afebrile, vital signs stable. Patient complains of some tenderness surrounding the ostomy site. States her left-sided abdominal pain is no worse than it has been over the past 6 years. Has no complaints at this time. Objective Vitals Vital Signs Date Time Temp Pulse Resp B/P (MAP) Pulse Ox O2 Delivery O2 Flow Rate FiO2 11/14/16 09:49 94 21 11/14/16 08:28 Room Air 11/14/16 08:00 98.0 77 20 106/59 (75) 94 11/14/16 04:00 98.0 77 18 106/59 (75) 98 11/14/16 00:00 Room Air 11/14/16 00:00 98.3 93 18 114/57 (76) 94 11/13/16 20:00 Room Air 11/13/16 20:00 98.5 97 20 119/75 (90) 97 11/13/16 16:00 97.9 100 20 145/95 (112) 98 I/O 11/13/16 11/13/16 11/13/16 11/14/16 11/14/16 11/14/16 07:00 15:00 23:00 07:00 15:00 23:00 Intake Total 440 ml 240 ml Output Total 425 ml Balance 15 ml 240 ml Intake Oral 440 ml 240 ml Output Urine Total 425 ml # Voids 5 # Bowel Movements 0 Result Diagram: 11/12/162016 Objective Remarks GENERAL: NAD, A&Ox3 HEAD: Normocephalic. NECK: Supple, trachea midline. No lymphadenopathy. EYES: No scleral icterus. No injection or drainage. CARDIOVASCULAR: Regular rate and rhythm without murmurs, gallops, or rubs. RESPIRATORY: Breath sounds equal bilaterally. No accessory muscle use. GASTROINTESTINAL: Abdomen soft, slight tenderness in the LUQ, nondistended. Ileostomy in place with brown liquid noted. MUSCULOSKELETAL: No cyanosis, or edema. SKIN: Warm and dry. NEURO: Global weakness, weakness of upper and lower extremities greater in the upper extremities, numbness in lower extremities. PSYCH: Appropriate mood and affect Procedures Endotracheal Intubation and extubation. Expressive Colonoscopy Ileostomy A/P Assessment and Plan 56-year-old female admitted secondary to respiratory distress and COPD and pneumonia. GI complications, now status post ileostomy. Continue physical therapy. C-spine MRI is within normal limits. MRI of brain shows abnormal findings which are not specific (scattered white matter lesions, multiple sclerosis versus ischemic changes). Symbicort and albuterol resumed. Continue to follow patient's neuro status. Paraplegia Critical Illness Polyneuropathy as per Neurology specialist, secondary to bedridden status plus steroids plus infection. MRI brain completed and per Neuro , do not think its MS or cord lesion, also less likely MS as no improvement on steroids. 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 - Continue participation with PT and OT. Requested PT to work with pt 7 days a week. - Continue gabapentin for paresthesias. Increased to 300 mg TID. - Limit steroid use and repeat MRI in 2 to 3 months. Acute hypercarbic respiratory failure/ COPD exacerbation, resolved/ HCAP, LLL infiltrate Extubated 10/10. Pulmonary and ID following - stable from pulm standpoint and ID has signed off. Breathing well on room air. - Continue bronchodilators, Mucolytic and Incentive spirometry. - Continue Duonebs. - Oxygen as needed. Chest tightness Atypical, worse after meals and with lying supine, fullness after meals. Unlikely of cardiac origin. Suspect GI etiology. CXR 09/30 reviewed and is normal examination. EKG with NSR. Echo 09/10/15 EF 55-60%, normal wall motion, PA peak pressure 35mm Hg. - Resolved. Colonic ileus Status post ileostomy placed 10/13/16 for pneumoperitoneum/ ileus. - Regular diet. - completed course of Levaquin and Flagyl 10/24/16 as per ID specialist. - Surgery following. Chronic left sided abdominal pain The pt has had this pain for 6 years but complaining of worsening over the past few days. LFTs elevated but stable compared to previous values. Lipase unremarkable. - continue PPI. Add Maalox. - consider repeating CT. - will refer to outpatient gastroenterology and gynecology after discharge for further workup. Pt would likely benefit from an EGD and a rule out of gynecological issues. History of tobacco abuse Currently weaned off all nicotine. - Strongly recommended to stop smoking. Hypertension Controlled. - Lisinopril and Lopressor on hold due to relative hypotension. - continue on Cardizem 60mg q6h and Hydralazine 50mg q8hr. Low TSH, low free T3 and low free T4 Unsure of clinical significance especially in light of normal MRI findings. - recommend repeat as outpatient in 2 months. Anemia Hgb has been decreasing. Possibly anemia of chronic disease. - monitor as needed. Anxiety/ Insomnia Chronic. - Ativan and Ambien as needed. Hoarse voice Likely s/t intubation. Possible laryngeal nerve injury. Possible GERD. - increase PPI. - Lozenges as needed. - outpt ENT follow-up. DVT prophylaxis SCDs Lovenox 40mg sq Discharge Planning Awaiting medicaid application. Apparently the patient has no payer source. She will need to improve with physical therapy in order to go home as she will not have any benefits for rehabilitation. Anu Franklin MD R3 Nov 14, 2016 12:30
--- NOTE | 2016-11-14 15:52 | HHI.PR ---
Subjective Remarks 56 YOWF with VDRF, , extubated 10/10 no Fever Appetite good Breathing nebs helps Being trained for ilostomy care No new complaint Objective Vital Signs Vital Signs Date Time Temp Pulse Resp B/P (MAP) Pulse Ox O2 Delivery O2 Flow Rate FiO2 11/14/16 15:46 98.7 84 20 108/64 (79) 95 11/14/16 12:00 97.7 86 20 109/65 (80) 96 11/14/16 09:49 94 21 11/14/16 08:28 Room Air 11/14/16 08:00 98.0 77 20 106/59 (75) 94 11/14/16 04:00 98.0 77 18 106/59 (75) 98 11/14/16 00:00 Room Air 11/14/16 00:00 98.3 93 18 114/57 (76) 94 11/13/16 20:00 Room Air 11/13/16 20:00 98.5 97 20 119/75 (90) 97 11/13/16 16:00 97.9 100 20 145/95 (112) 98 I/O 11/13/16 11/13/16 11/13/16 11/14/16 11/14/16 11/14/16 07:00 15:00 23:00 07:00 15:00 23:00 Intake Total 440 ml 240 ml Output Total 425 ml Balance 15 ml 240 ml Intake Oral 440 ml 240 ml Output Urine Total 425 ml # Voids 5 # Bowel Movements 0 Result Diagram: 11/12/162016 Objective Remarks GENERAL: MBMN WF, on Vent SKIN: Warm and dry. HEAD: Normocephalic. EYES: No scleral icterus. No injection or drainage. NECK: Supple, trachea midline. No JVD or lymphadenopathy. CARDIOVASCULAR: Regular rate and rhythm without murmurs, gallops, or rubs. RESPIRATORY: Breath sounds equal bilaterally. No accessory muscle use. GASTROINTESTINAL: Abdomen soft, non-tender, nondistended. Ileostomy MUSCULOSKELETAL: No cyanosis, or edema. BACK: Nontender without obvious deformity. No CVA tenderness. A/P Assessment and Plan VDRF, s/p extubation 10/10 COPD Exac HTN Nicotine use S/p Exp Lap, ileostomy PLAN Encourage PO. Physical therapy. Cont Budesonide and Duonebs Stable on Abdirahman Grey MD Nov 14, 2016 15:52
[2016-11-14] MEDS: LORazepam 0.5 MG TAB PO PRN (23:25)
[2016-11-15] VITALS (10 sets, daily range): BP systolic 95–142; BP diastolic 51–89; PULSE 81–92; RESP 17–20; TEMP 97.2–98.4; O2SAT 92–98
[2016-11-15] MEDS: DILTIAZEM HCL 60 MG TAB PO SCH ×4 (02:00→20:39)
[2016-11-15] MEDS: LORazepam 1 MG TAB PO PRN ×3 (03:15→20:38)
[2016-11-15] MEDS: RESP: ALBUTEROL 2.5 MG/IPRATROPIUM 0.5 MG NEB (PRN) NEB ×2 (03:41→20:21)
[2016-11-15] MEDS: hydrALAZINE HCL 50 MG TAB PO SCH ×3 (05:48→22:00)
[2016-11-15] MEDS: CHLORHEXIDINE 0.12% (ORAL KIT) 15 ML CUP MT SCH ×2 (07:01→20:00)
[2016-11-15] MEDS: BENEPROTEIN POWDER 1 PACK G-TUBE SCH ×2 (07:02→12:32)
[2016-11-15] MEDS: PANTOPRAZOLE SOD 20 MG DELAYED RELEASE TAB PO SCH (08:26)
[2016-11-15] MEDS: POTASSIUM CHLORIDE 20 MEQ CONTROLLED RELEASE TAB PO SCH ×2 (08:26→20:38)
[2016-11-15] MEDS: ACETAMINOPHEN/HYDROcodone 325 MG/7.5 MG TAB PO PRN ×3 (08:27→17:47)
[2016-11-15] MEDS: GABAPENTIN 300 MG CAP PO SCH ×3 (08:27→17:46)
[2016-11-15] MEDS: BUDESONIDE-FORMOTEROL 160/4.5 MCG INHALER INH SCH ×2 (08:27→20:38)
[2016-11-15] MEDS: SODIUM CHLORIDE 0.9% FLUSH 10 ML FLUSH IV FLUSH SCH ×2 (08:27→20:38)
[2016-11-15] MEDS: TIOTROPIUM BROMIDE 18 MCG INH INH SCH (08:27)
[2016-11-15] MEDS: RESP: BUDESONIDE 0.5 MG/2 ML NEB NEB SCH ×2 (08:31→20:21)
--- NOTE | 2016-11-15 11:48 | HHI.PR ---
Subjective Remarks No acute events overnight. Afebrile, vital signs stable. Patient states she was able to walk with the walker to the bathroom and to the edge of the room. She continues to work with physical therapy and feels that she is getting stronger. She has no complaints at this time. Objective Vitals Vital Signs Date Time Temp Pulse Resp B/P (MAP) Pulse Ox O2 Delivery O2 Flow Rate FiO2 11/15/16 08:31 98 21 11/15/16 08:24 Room Air 11/15/16 08:00 98.0 81 18 102/54 (70) 94 11/15/16 04:00 98.3 85 17 95/51 (66) 92 11/15/16 00:00 98.4 90 18 103/54 (70) 92 11/14/16 21:55 Room Air 11/14/16 20:09 97 11/14/16 20:00 98.3 88 17 110/57 (74) 95 11/14/16 20:00 Room Air 11/14/16 15:46 98.7 84 20 108/64 (79) 95 11/14/16 12:00 97.7 86 20 109/65 (80) 96 I/O 11/14/16 11/14/16 11/14/16 11/15/16 11/15/16 11/15/16 07:00 15:00 23:00 07:00 15:00 23:00 Intake Total 240 ml 360 ml Balance 240 ml 360 ml Intake Oral 240 ml 360 ml # Voids 5 4 2 # Bowel Movements 2 Result Diagram: 11/12/162016 Objective Remarks GENERAL: NAD, A&Ox3 HEAD: Normocephalic. NECK: Supple, trachea midline. No lymphadenopathy. EYES: No scleral icterus. No injection or drainage. CARDIOVASCULAR: Regular rate and rhythm without murmurs, gallops, or rubs. RESPIRATORY: Breath sounds equal bilaterally. No accessory muscle use. No wheezes or rhonchi. GASTROINTESTINAL: Abdomen soft, slight tenderness in the LUQ, nondistended. Ileostomy in place with brown liquid noted. MUSCULOSKELETAL: No cyanosis, or edema. SKIN: Warm and dry. NEURO: Global weakness, weakness of upper and lower extremities greater in the upper extremities, numbness in lower extremities. PSYCH: Appropriate mood and affect Procedures Endotracheal Intubation and extubation. Expressive Colonoscopy Ileostomy A/P Assessment and Plan 56-year-old female admitted secondary to respiratory distress and COPD and pneumonia. GI complications, now status post ileostomy. Continue physical therapy. C-spine MRI is within normal limits. MRI of brain shows abnormal findings which are not specific (scattered white matter lesions, multiple sclerosis versus ischemic changes). Symbicort and albuterol resumed. Continue to follow patient's neuro status. Paraplegia Critical Illness Polyneuropathy as per Neurology specialist, secondary to bedridden status plus steroids plus infection. MRI brain completed and per Neuro , do not think its MS or cord lesion, also less likely MS as no improvement on steroids. 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 - Continue participation with PT and OT. Requested PT to work with pt 7 days a week. - Continue gabapentin for paresthesias. Increased to 300 mg TID. - Limit steroid use and repeat MRI in 2 to 3 months. Acute hypercarbic respiratory failure/ COPD exacerbation, resolved/ HCAP, LLL infiltrate Extubated 10/10. Pulmonary and ID following - stable from pulm standpoint and ID has signed off. Breathing well on room air. - Continue bronchodilators, Mucolytic and Incentive spirometry. - Continue Duonebs. - Oxygen as needed. Chest tightness Atypical, worse after meals and with lying supine, fullness after meals. Unlikely of cardiac origin. Suspect GI etiology. CXR 09/30 reviewed and is normal examination. EKG with NSR. Echo 09/10/15 EF 55-60%, normal wall motion, PA peak pressure 35mm Hg. - Resolved. Colonic ileus Status post ileostomy placed 10/13/16 for pneumoperitoneum/ ileus. - Regular diet. - completed course of Levaquin and Flagyl 10/24/16 as per ID specialist. - Surgery following. Chronic left sided abdominal pain The pt has had this pain for 6 years but complaining of worsening over the past few days. LFTs elevated but stable compared to previous values. Lipase unremarkable. - continue PPI. Add Maalox. - consider repeating CT. - will refer to outpatient gastroenterology and gynecology after discharge for further workup. Pt would likely benefit from an EGD and a rule out of gynecological issues. History of tobacco abuse Currently weaned off all nicotine. - Strongly recommended to stop smoking. Hypertension Controlled. - Lisinopril and Lopressor on hold due to relative hypotension. - continue on Cardizem 60mg q6h and Hydralazine 50mg q8hr. Low TSH, low free T3 and low free T4 Unsure of clinical significance especially in light of normal MRI findings. - recommend repeat as outpatient in 2 months. Anemia Hgb has been decreasing. Possibly anemia of chronic disease. - monitor as needed. Anxiety/ Insomnia Chronic. - Ativan and Ambien as needed. Hoarse voice Likely s/t intubation. Possible laryngeal nerve injury. Possible GERD. - increase PPI. - Lozenges as needed. - outpt ENT follow-up. DVT prophylaxis SCDs Lovenox 40mg sq Discharge Planning Awaiting medicaid application. Apparently the patient has no payer source. She will need to improve with physical therapy in order to go home as she will not have any benefits for rehabilitation. Anu Franklin MD R3 Nov 15, 2016 11:48
--- NOTE | 2016-11-15 16:09 | HHI.PR ---
Subjective Remarks 56 YOWF with VDRF, , extubated 10/10 no Fever Appetite good Breathing nebs helps Being trained for ilostomy care Gets anxious and sob Objective Vital Signs Vital Signs Date Time Temp Pulse Resp B/P (MAP) Pulse Ox O2 Delivery O2 Flow Rate FiO2 11/15/16 13:41 142/89 (106) 11/15/16 12:00 97.8 84 17 99/58 (72) 95 11/15/16 11:48 98.4 89 18 101/56 (71) 95 11/15/16 08:31 98 21 11/15/16 08:24 Room Air 11/15/16 08:00 98.0 81 18 102/54 (70) 94 11/15/16 04:00 98.3 85 17 95/51 (66) 92 11/15/16 00:00 98.4 90 18 103/54 (70) 92 11/14/16 21:55 Room Air 11/14/16 20:09 97 11/14/16 20:00 98.3 88 17 110/57 (74) 95 11/14/16 20:00 Room Air I/O 11/14/16 11/14/16 11/14/16 11/15/16 11/15/16 11/15/16 07:00 15:00 23:00 07:00 15:00 23:00 Intake Total 240 ml 360 ml Balance 240 ml 360 ml Intake Oral 240 ml 360 ml # Voids 5 4 2 # Bowel Movements 2 Result Diagram: 11/12/162016 Objective Remarks GENERAL: MBMN WF, on Vent SKIN: Warm and dry. HEAD: Normocephalic. EYES: No scleral icterus. No injection or drainage. NECK: Supple, trachea midline. No JVD or lymphadenopathy. CARDIOVASCULAR: Regular rate and rhythm without murmurs, gallops, or rubs. RESPIRATORY: Breath sounds equal bilaterally. No accessory muscle use. GASTROINTESTINAL: Abdomen soft, non-tender, nondistended. Ileostomy MUSCULOSKELETAL: No cyanosis, or edema. BACK: Nontender without obvious deformity. No CVA tenderness. A/P Assessment and Plan VDRF, s/p extubation 10/10 COPD Exac HTN Nicotine use S/p Exp Lap, ileostomy PLAN Encourage PO. Physical therapy. Cont Budesonide and Duonebs Stable on RA PFT in Abdirahman Sharif MD Nov 15, 2016 16:09
[2016-11-15] MEDS: ENOXAPARIN SODIUM 40 MG/0.4 ML SYRINGE SQ SCH (20:38)
[2016-11-15] MEDS: LORazepam 0.5 MG TAB PO PRN (22:10)
[2016-11-16] VITALS (7 sets, daily range): BP systolic 104–114; BP diastolic 51–78; PULSE 81–89; RESP 16–20; TEMP 98.1–98.8; O2SAT 94–96
[2016-11-16] MEDS: DILTIAZEM HCL 60 MG TAB PO SCH ×4 (02:00→20:00)
[2016-11-16] MEDS: ACETAMINOPHEN/HYDROcodone 325 MG/7.5 MG TAB PO PRN ×5 (02:21→21:50)
[2016-11-16] MEDS: LORazepam 1 MG TAB PO PRN ×2 (04:40→21:29)
[2016-11-16] MEDS: hydrALAZINE HCL 50 MG TAB PO SCH ×3 (04:40→21:31)
[2016-11-16] MEDS: RESP: BUDESONIDE 0.5 MG/2 ML NEB NEB SCH ×2 (07:31→19:29)
[2016-11-16] MEDS: CHLORHEXIDINE 0.12% (ORAL KIT) 15 ML CUP MT SCH ×2 (08:00→20:00)
[2016-11-16] MEDS: BENEPROTEIN POWDER 1 PACK G-TUBE SCH ×3 (09:00→18:00)
[2016-11-16] MEDS: GABAPENTIN 300 MG CAP PO SCH ×3 (10:02→18:13)
[2016-11-16] MEDS: POTASSIUM CHLORIDE 20 MEQ CONTROLLED RELEASE TAB PO SCH ×2 (10:02→21:30)
[2016-11-16] MEDS: PANTOPRAZOLE SOD 20 MG DELAYED RELEASE TAB PO SCH (10:03)
[2016-11-16] MEDS: SODIUM CHLORIDE 0.9% FLUSH 10 ML FLUSH IV FLUSH SCH ×2 (10:03→21:42)
[2016-11-16] MEDS: TIOTROPIUM BROMIDE 18 MCG INH INH SCH (10:10)
[2016-11-16] MEDS: BUDESONIDE-FORMOTEROL 160/4.5 MCG INHALER INH SCH ×2 (10:10→21:41)
--- NOTE | 2016-11-16 17:06 | HHI.PR ---
Subjective Remarks Patient eating her lunch, no acute issue overnight, continue to make efforts to improve physical mobility Objective Vitals Vital Signs Date Time Temp Pulse Resp B/P (MAP) Pulse Ox O2 Delivery O2 Flow Rate FiO2 11/16/16 12:06 98.7 85 17 114/57 (76) 95 11/16/16 08:06 98.1 86 17 105/51 (69) 94 11/16/16 08:00 96 Room Air 11/16/16 06:06 Room Air 11/16/16 04:36 98.8 81 18 104/64 (77) 96 11/16/16 00:00 98.5 89 20 107/57 (74) 94 11/15/16 20:24 96 11/15/16 20:00 98.4 92 20 123/58 (79) 96 11/15/16 20:00 Room Air I/O 11/15/16 11/15/16 11/15/16 11/16/16 11/16/16 11/16/16 07:00 15:00 23:00 07:00 15:00 23:00 Intake Total 1200 ml Output Total 525 ml 550 ml 500 ml Balance 675 ml -550 ml -500 ml Intake Oral 1200 ml Output Urine Total 350 ml 550 ml Stool Total 175 ml 500 ml # Voids 2 1 Result Diagram: 11/12/162016 Objective Remarks GENERAL: This is a well-nourished, well-developed patient, in no apparent distress. SKIN: No rashes, warm and dry HEAD: Atraumatic. Normocephalic. EYES: Pupils equal round and reactive. Extraocular motions intact. No scleral icterus. ENT: Nose without bleeding, or drainage, Airway patent. NECK: Trachea midline. Supple CARDIOVASCULAR: Regular rate and rhythm without murmurs, gallops, or rubs. RESPIRATORY: Fair air entry bilaterally. No wheezes, rales, or rhonchi. GASTROINTESTINAL: Abdomen soft, non-tender, nondistended. Positive bowel sounds MUSCULOSKELETAL: Extremities without clubbing, cyanosis, or edema. Pedal pulses appreciated NEUROLOGICAL: Awake and alert. Moves all extremity. Normal speech.no focal neurological deficit Procedures Endotracheal Intubation and extubation. Expressive Colonoscopy Ileostomy A/P Assessment and Plan 56-year-old female admitted secondary to respiratory distress and COPD and pneumonia. GI complications, now status post ileostomy. Continue physical therapy. C-spine MRI is within normal limits. MRI of brain shows abnormal findings which are not specific (scattered white matter lesions, multiple sclerosis versus ischemic changes). Symbicort and albuterol resumed. Continue to follow patient's neuro status. 11/16: Continue efforts with PT OT, follow improvement Paraplegia Critical Illness Polyneuropathy as per Neurology specialist, secondary to bedridden status plus steroids plus infection. MRI brain completed and per Neuro , do not think its MS or cord lesion, also less likely MS as no improvement on steroids. 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 - Continue participation with PT and OT. Requested PT to work with pt 7 days a week. - Continue gabapentin for paresthesias. Increased to 300 mg TID. - Limit steroid use and repeat MRI in 2 to 3 months. Acute hypercarbic respiratory failure/ COPD exacerbation, resolved/ HCAP, LLL infiltrate Extubated 10/10. Pulmonary and ID following - stable from pulm standpoint and ID has signed off. Breathing well on room air. - Continue bronchodilators, Mucolytic and Incentive spirometry. - Continue Duonebs. - Oxygen as needed. Chest tightness Atypical, worse after meals and with lying supine, fullness after meals. Unlikely of cardiac origin. Suspect GI etiology. CXR 09/30 reviewed and is normal examination. EKG with NSR. Echo 09/10/15 EF 55-60%, normal wall motion, PA peak pressure 35mm Hg. - Resolved. Colonic ileus Status post ileostomy placed 10/13/16 for pneumoperitoneum/ ileus. - Regular diet. - completed course of Levaquin and Flagyl 10/24/16 as per ID specialist. - Surgery following. Chronic left sided abdominal pain The pt has had this pain for 6 years but complaining of worsening over the past few days. LFTs elevated but stable compared to previous values. Lipase unremarkable. - continue PPI. Add Maalox. - consider repeating CT. - will refer to outpatient gastroenterology and gynecology after discharge for further workup. Pt would likely benefit from an EGD and a rule out of gynecological issues. History of tobacco abuse Currently weaned off all nicotine. - Strongly recommended to stop smoking. Hypertension Controlled. - Lisinopril and Lopressor on hold due to relative hypotension. - continue on Cardizem 60mg q6h and Hydralazine 50mg q8hr. Low TSH, low free T3 and low free T4 Unsure of clinical significance especially in light of normal MRI findings. - recommend repeat as outpatient in 2 months. Anemia Hgb has been decreasing. Possibly anemia of chronic disease. - monitor as needed. Anxiety/ Insomnia Chronic. - Ativan and Ambien as needed. Hoarse voice Likely s/t intubation. Possible laryngeal nerve injury. Possible GERD. - increase PPI. - Lozenges as needed. - outpt ENT follow-up. DVT prophylaxis SCDs Lovenox 40mg sq Discharge Planning Awaiting medicaid application. Apparently the patient has no payer source. She will need to improve with physical therapy in order to go home as she will not have any benefits for rehabilitation. Pia Ospina MD Nov 16, 2016 17:06
--- NOTE | 2016-11-16 18:53 | PD.WCN.NOT ---
Wound Consult Description: Consult placed per Dr Yo for "stoma" Communicated with: ASHLEY Pedroza Patient Recommendation: Encouraged patient to open and close pouch at top to release air. Please call staff for assistance in emptying ileostomy pouch of effluent when 1/ 2-1/3 full Have patient participate when ileostomy care is taking place especially when emptying and changing appliance when gmat tutor is not available Allow patient to watch Ostomy care with her mirror when changing appliance and have significant other observe if available Additional Information: Patient seen on for ostomy assessment. Stoma is red, moist, round, functioning with air and soft stool noted to pouch that patient states was changed this am (the pouch only, not the barrier). Discussed changing appliance tomorrow with patient actively participating. Ostomy Type: Ileostomy Surgeon: Victor Manuel Yo MD Date of Surgery: Oct 13, 2016 Complete: Starter kit, Education materials, Other (patient instructed to call staff when pouch begins to feel heavy or is in need of emptying/releasing air etc.) Educated patient on: Changing appliance with patient tomorrow 11/17/16 Additional information technology advisor to change appliance with patient tomorrow actively participating. Nell Nur [facility] Nov 16, 2016 18:53
--- NOTE | 2016-11-16 19:33 | HHI.PR ---
Subjective Remarks 56 YOWF with VDRF, , extubated 10/10 no Fever Appetite good Breathing nebs helps Being trained for ilostomy care Gets anxious and sob No new complaint Objective Vital Signs Vital Signs Date Time Temp Pulse Resp B/P (MAP) Pulse Ox O2 Delivery O2 Flow Rate FiO2 11/16/16 19:30 96 11/16/16 16:06 98.5 81 17 113/68 (83) 95 11/16/16 16:00 95 Room Air 11/16/16 12:06 98.7 85 17 114/57 (76) 95 11/16/16 12:00 94 Room Air 11/16/16 08:06 98.1 86 17 105/51 (69) 94 11/16/16 08:00 96 Room Air 11/16/16 06:06 Room Air 11/16/16 04:36 98.8 81 18 104/64 (77) 96 11/16/16 00:00 98.5 89 20 107/57 (74) 94 11/15/16 20:24 96 11/15/16 20:00 98.4 92 20 123/58 (79) 96 11/15/16 20:00 Room Air I/O 11/15/16 11/15/16 11/15/16 11/16/16 11/16/16 11/16/16 07:00 15:00 23:00 07:00 15:00 23:00 Intake Total 1200 ml 380 ml Output Total 525 ml 550 ml 500 ml Balance 675 ml -550 ml -500 ml 380 ml Intake Oral 1200 ml 380 ml Output Urine Total 350 ml 550 ml Stool Total 175 ml 500 ml # Voids 2 1 5 # Bowel Movements 0 Result Diagram: 11/12/162016 Objective Remarks GENERAL: MBMN WF, on Vent SKIN: Warm and dry. HEAD: Normocephalic. EYES: No scleral icterus. No injection or drainage. NECK: Supple, trachea midline. No JVD or lymphadenopathy. CARDIOVASCULAR: Regular rate and rhythm without murmurs, gallops, or rubs. RESPIRATORY: Breath sounds equal bilaterally. No accessory muscle use. GASTROINTESTINAL: Abdomen soft, non-tender, nondistended. Ileostomy MUSCULOSKELETAL: No cyanosis, or edema. BACK: Nontender without obvious deformity. No CVA tenderness. A/P Assessment and Plan VDRF, s/p extubation 10/10 COPD Exac HTN Nicotine use S/p Exp Lap, ileostomy PLAN Encourage PO. Physical therapy. Cont Budesonide and Duonebs Stable on RA Check PFT Abdirahman Marquez MD Nov 16, 2016 19:33
[2016-11-16] MEDS: ENOXAPARIN SODIUM 40 MG/0.4 ML SYRINGE SQ SCH (21:32)
[2016-11-17] VITALS (8 sets, daily range): BP systolic 97–134; BP diastolic 54–65; PULSE 77–93; RESP 16–18; TEMP 97.3–98.8; O2SAT 91–98
[2016-11-17] MEDS: LORazepam 0.5 MG TAB PO PRN ×2 (00:40→22:35)
[2016-11-17] MEDS: DILTIAZEM HCL 60 MG TAB PO SCH ×4 (00:41→21:01)
[2016-11-17] MEDS: ACETAMINOPHEN/HYDROcodone 325 MG/7.5 MG TAB PO PRN ×5 (02:45→21:44)
[2016-11-17] MEDS: hydrALAZINE HCL 50 MG TAB PO SCH ×3 (06:00→21:02)
[2016-11-17] MEDS: RESP: BUDESONIDE 0.5 MG/2 ML NEB NEB SCH ×2 (07:30→18:57)
[2016-11-17] MEDS: RESP: ALBUTEROL 2.5 MG/IPRATROPIUM 0.5 MG NEB (PRN) NEB ×2 (07:30→15:57)
[2016-11-17] MEDS: CHLORHEXIDINE 0.12% (ORAL KIT) 15 ML CUP MT SCH ×2 (08:00→20:00)
[2016-11-17] MEDS: SODIUM CHLORIDE 0.9% FLUSH 10 ML FLUSH IV FLUSH SCH ×2 (08:07→21:04)
[2016-11-17] MEDS: PANTOPRAZOLE SOD 20 MG DELAYED RELEASE TAB PO SCH (08:07)
[2016-11-17] MEDS: LORazepam 1 MG TAB PO PRN ×2 (08:07→16:26)
[2016-11-17] MEDS: POTASSIUM CHLORIDE 20 MEQ CONTROLLED RELEASE TAB PO SCH ×2 (08:07→21:01)
[2016-11-17] MEDS: GABAPENTIN 300 MG CAP PO SCH ×3 (08:07→17:40)
[2016-11-17] MEDS: TIOTROPIUM BROMIDE 18 MCG INH INH SCH (08:08)
[2016-11-17] MEDS: BUDESONIDE-FORMOTEROL 160/4.5 MCG INHALER INH SCH ×2 (08:08→21:04)
[2016-11-17] MEDS: BENEPROTEIN POWDER 1 PACK G-TUBE SCH ×3 (08:09→17:41)
--- NOTE | 2016-11-17 14:03 | PD.WCN.NOT ---
Wound Consult Description: Consult placed per Dr Yo for "stoma" Communicated with: Patient Patient daughter at bedside ASHLEY Gaviria Recommendation: Encouraged patient to open and close pouch at top or bottom to release air Please call staff for assistance in emptying ileostomy pouch of effluent when 1/ 2-1/3 full Have patient participate when ileostomy care is taking place especially when emptying and changing appliance when labor relations officer is not available Additional Information: *Late entry* Patient seen earlier today for Ostomy appliance change Ostomy Type: Ileostomy Surgeon: Victor Manuel Yo MD Date of Surgery: Oct 13, 2016 Complete: Starter kit, Education materials, Other (patient instructed to call staff when pouch begins to feel heavy or is in need of emptying/releasing air etc.) Educated patient on: When to change the appliance How to remove the barrier from the skin How to inspect the back side of the barrier for breakdown How to cleanse and dry the peristomal skin How to assess the appearance, size, and shape of stoma including measuring the stoma How to warm barrier prior to application How to mold barrier to fit stoma size How to apply the barrier and pouch Additional information Patient seen on [address] [place] [address] for ostomy assessment. Upon entering patient room, patient was lying in bed and happy about having just gotten her hair washed. Ostomy appliance was noted to be in tact without leaks and border tape was unattached. Stoma is measuring 1" from top to bottom and 1 1/8" from side to side. Stoma is red, moist, oval, with long protrusion, functioning with green liquid/soft effluent noted to pouch, lumen noted at 9 o'clock. Appliance was removed by patient and report writer using adhesive removal wipes. Peristomal skin was cleansed with water only by patient and report writer. Mucocutaneous junction is unremarkable. Peristomal skin is unremarkable. A new barrier (1 3/4") and pouch was placed without the use of the low pressure adaptor. Appliances in size 1 3/4 " ordered for pouch to be changed and for next appliance change. Nell Nur [facility] Nov 17, 2016 14:03
--- NOTE | 2016-11-17 14:11 | HHI.PR ---
Subjective Remarks No acute issue overnight No fever chills or chest pain Objective Vitals Vital Signs Date Time Temp Pulse Resp B/P (MAP) Pulse Ox O2 Delivery O2 Flow Rate FiO2 11/17/16 12:03 98.8 77 18 98/57 (71) 92 11/17/16 10:02 18 11/17/16 08:00 98.1 87 18 127/58 (81) 94 11/17/16 07:33 94 11/17/16 05:22 98.6 78 16 97/54 (68) 91 11/17/16 00:00 97.3 77 18 134/65 (88) 97 11/16/16 20:00 Room Air 11/16/16 20:00 98.5 82 16 112/78 (89) 96 11/16/16 19:30 96 11/16/16 16:06 98.5 81 17 113/68 (83) 95 11/16/16 16:00 95 Room Air I/O 11/16/16 11/16/16 11/16/16 11/17/16 11/17/16 11/17/16 07:00 15:00 23:00 07:00 15:00 23:00 Intake Total 380 ml 240 ml Output Total 550 ml 500 ml 300 ml Balance -550 ml -500 ml 380 ml -60 ml Intake Oral 380 ml 240 ml Output Urine Total 550 ml 300 ml Stool Total 500 ml # Voids 5 # Bowel Movements 0 0 Objective Remarks GENERAL: This is a well-nourished, well-developed patient, in no apparent distress. SKIN: No rashes, warm and dry HEAD: Atraumatic. Normocephalic. EYES: Pupils equal round and reactive. Extraocular motions intact. No scleral icterus. ENT: Nose without bleeding, or drainage, Airway patent. NECK: Trachea midline. Supple CARDIOVASCULAR: Regular rate and rhythm without murmurs, gallops, or rubs. RESPIRATORY: Fair air entry bilaterally. No wheezes, rales, or rhonchi. GASTROINTESTINAL: Abdomen soft, non-tender, nondistended. Positive bowel sounds MUSCULOSKELETAL: Extremities without clubbing, cyanosis, or edema. Pedal pulses appreciated NEUROLOGICAL: Awake and alert. Moves all extremity. Normal speech.no focal neurological deficit Procedures Endotracheal Intubation and extubation. Expressive Colonoscopy Ileostomy A/P Assessment and Plan 56-year-old female admitted secondary to respiratory distress and COPD and pneumonia. GI complications, now status post ileostomy. Continue physical therapy. C-spine MRI is within normal limits. MRI of brain shows abnormal findings which are not specific (scattered white matter lesions, multiple sclerosis versus ischemic changes). Symbicort and albuterol resumed. Continue to follow patient's neuro status. 11/16: Continue efforts with PT OT, follow improvement 11/17: L FT shown to be elevated, will repeat to monitor the trend, continue PT OT effort, pulmonary requested PFT check A/P: Paraplegia Critical Illness Polyneuropathy as per Neurology specialist, secondary to bedridden status plus steroids plus infection. MRI brain completed and per Neuro , do not think its MS or cord lesion, also less likely MS as no improvement on steroids. 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 - Continue participation with PT and OT. Requested PT to work with pt 7 days a week. - Continue gabapentin for paresthesias. Increased to 300 mg TID. - Limit steroid use and repeat MRI in 2 to 3 months. Acute hypercarbic respiratory failure/ COPD exacerbation, resolved/ HCAP, LLL infiltrate Extubated 10/10. Pulmonary and ID following - stable from pulm standpoint and ID has signed off. Breathing well on room air. - Continue bronchodilators, Mucolytic and Incentive spirometry. - Continue Duonebs. - Oxygen as needed. Chest tightness Atypical, worse after meals and with lying supine, fullness after meals. Unlikely of cardiac origin. Suspect GI etiology. CXR 09/30 reviewed and is normal examination. EKG with NSR. Echo 09/10/15 EF 55-60%, normal wall motion, PA peak pressure 35mm Hg. - Resolved. Colonic ileus Status post ileostomy placed 10/13/16 for pneumoperitoneum/ ileus. - Regular diet. - completed course of Levaquin and Flagyl 10/24/16 as per ID specialist. - Surgery following. Chronic left sided abdominal pain The pt has had this pain for 6 years but complaining of worsening over the past few days. LFTs elevated but stable compared to previous values. Lipase unremarkable. - continue PPI. Add Maalox. - consider repeating CT. - will refer to outpatient gastroenterology and gynecology after discharge for further workup. Pt would likely benefit from an EGD and a rule out of gynecological issues. History of tobacco abuse Currently weaned off all nicotine. - Strongly recommended to stop smoking. Hypertension Controlled. - Lisinopril and Lopressor on hold due to relative hypotension. - continue on Cardizem 60mg q6h and Hydralazine 50mg q8hr. Low TSH, low free T3 and low free T4 Unsure of clinical significance especially in light of normal MRI findings. - recommend repeat as outpatient in 2 months. Anemia Hgb has been decreasing. Possibly anemia of chronic disease. - monitor as needed. Anxiety/ Insomnia Chronic. - Ativan and Ambien as needed. Hoarse voice Likely s/t intubation. Possible laryngeal nerve injury. Possible GERD. - increase PPI. - Lozenges as needed. - outpt ENT follow-up. DVT prophylaxis SCDs Lovenox 40mg sq Discharge Planning Awaiting medicaid application. Apparently the patient has no payer source. She will need to improve with physical therapy in order to go home as she will not have any benefits for rehabilitation. Pia Ospina MD Nov 17, 2016 14:11
--- NOTE | 2016-11-17 15:42 | HHI.PR ---
Objective Vitals Vital Signs Date Time Temp Pulse Resp B/P (MAP) Pulse Ox O2 Delivery O2 Flow Rate FiO2 11/17/16 14:45 18 11/17/16 12:03 98.8 77 18 98/57 (71) 92 11/17/16 08:00 98.1 87 18 127/58 (81) 94 11/17/16 07:33 94 11/17/16 05:22 98.6 78 16 97/54 (68) 91 11/17/16 00:00 97.3 77 18 134/65 (88) 97 11/16/16 20:00 Room Air 11/16/16 20:00 98.5 82 16 112/78 (89) 96 11/16/16 19:30 96 11/16/16 16:06 98.5 81 17 113/68 (83) 95 11/16/16 16:00 95 Room Air I/O 11/16/16 11/16/16 11/16/16 11/17/16 11/17/16 11/17/16 07:00 15:00 23:00 07:00 15:00 23:00 Intake Total 380 ml 240 ml Output Total 550 ml 500 ml 300 ml Balance -550 ml -500 ml 380 ml -60 ml Intake Oral 380 ml 240 ml Output Urine Total 550 ml 300 ml Stool Total 500 ml # Voids 5 # Bowel Movements 0 0 Objective Remarks GENERAL: This is a well-nourished, well-developed patient, in no apparent distress. SKIN: No rashes, warm and dry HEAD: Atraumatic. Normocephalic. EYES: Pupils equal round and reactive. Extraocular motions intact. No scleral icterus. ENT: Nose without bleeding, or drainage, Airway patent. NECK: Trachea midline. Supple CARDIOVASCULAR: Regular rate and rhythm without murmurs, gallops, or rubs. RESPIRATORY: Fair air entry bilaterally. No wheezes, rales, or rhonchi. GASTROINTESTINAL: Abdomen soft, non-tender, nondistended. Positive bowel sounds MUSCULOSKELETAL: Extremities without clubbing, cyanosis, or edema. Pedal pulses appreciated NEUROLOGICAL: Awake and alert. Moves all extremity. Normal speech.no focal neurological deficit Procedures Endotracheal Intubation and extubation. Expressive Colonoscopy Ileostomy A/P Assessment and Plan 56-year-old female admitted secondary to respiratory distress and COPD and pneumonia. GI complications, now status post ileostomy. Continue physical therapy. C-spine MRI is within normal limits. MRI of brain shows abnormal findings which are not specific (scattered white matter lesions, multiple sclerosis versus ischemic changes). Symbicort and albuterol resumed. Continue to follow patient's neuro status. 11/16: Continue efforts with PT OT, follow improvement Paraplegia Critical Illness Polyneuropathy as per Neurology specialist, secondary to bedridden status plus steroids plus infection. MRI brain completed and per Neuro , do not think its MS or cord lesion, also less likely MS as no improvement on steroids. 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 - Continue participation with PT and OT. Requested PT to work with pt 7 days a week. - Continue gabapentin for paresthesias. Increased to 300 mg TID. - Limit steroid use and repeat MRI in 2 to 3 months. Acute hypercarbic respiratory failure/ COPD exacerbation, resolved/ HCAP, LLL infiltrate Extubated 10/10. Pulmonary and ID following - stable from pulm standpoint and ID has signed off. Breathing well on room air. - Continue bronchodilators, Mucolytic and Incentive spirometry. - Continue Duonebs. - Oxygen as needed. Chest tightness Atypical, worse after meals and with lying supine, fullness after meals. Unlikely of cardiac origin. Suspect GI etiology. CXR 09/30 reviewed and is normal examination. EKG with NSR. Echo 09/10/15 EF 55-60%, normal wall motion, PA peak pressure 35mm Hg. - Resolved. Colonic ileus Status post ileostomy placed 10/13/16 for pneumoperitoneum/ ileus. - Regular diet. - completed course of Levaquin and Flagyl 10/24/16 as per ID specialist. - Surgery following. Chronic left sided abdominal pain The pt has had this pain for 6 years but complaining of worsening over the past few days. LFTs elevated but stable compared to previous values. Lipase unremarkable. - continue PPI. Add Maalox. - consider repeating CT. - will refer to outpatient gastroenterology and gynecology after discharge for further workup. Pt would likely benefit from an EGD and a rule out of gynecological issues. History of tobacco abuse Currently weaned off all nicotine. - Strongly recommended to stop smoking. Hypertension Controlled. - Lisinopril and Lopressor on hold due to relative hypotension. - continue on Cardizem 60mg q6h and Hydralazine 50mg q8hr. Low TSH, low free T3 and low free T4 Unsure of clinical significance especially in light of normal MRI findings. - recommend repeat as outpatient in 2 months. Anemia Hgb has been decreasing. Possibly anemia of chronic disease. - monitor as needed. Anxiety/ Insomnia Chronic. - Ativan and Ambien as needed. Hoarse voice Likely s/t intubation. Possible laryngeal nerve injury. Possible GERD. - increase PPI. - Lozenges as needed. - outpt ENT follow-up. DVT prophylaxis SCDs Lovenox 40mg sq Discharge Planning Awaiting medicaid application. Apparently the patient has no payer source. She will need to improve with physical therapy in order to go home as she will not have any benefits for rehabilitation. Pia Ospina MD Nov 17, 2016 15:42
--- NOTE | 2016-11-17 18:09 | HHI.PR ---
Subjective Remarks 56 YOWF with VDRF, , extubated 10/10 no Fever Appetite good Breathing nebs helps Being trained for ilostomy care No new complaint Objective Vital Signs Vital Signs Date Time Temp Pulse Resp B/P (MAP) Pulse Ox O2 Delivery O2 Flow Rate FiO2 11/17/16 16:00 98.1 93 18 121/65 (83) 97 11/17/16 15:57 98 21 11/17/16 14:45 18 11/17/16 12:03 98.8 77 18 98/57 (71) 92 11/17/16 08:00 98.1 87 18 127/58 (81) 94 11/17/16 07:33 94 11/17/16 05:22 98.6 78 16 97/54 (68) 91 11/17/16 00:00 97.3 77 18 134/65 (88) 97 11/16/16 20:00 Room Air 11/16/16 20:00 98.5 82 16 112/78 (89) 96 11/16/16 19:30 96 I/O 11/16/16 11/16/16 11/16/16 11/17/16 11/17/16 11/17/16 07:00 15:00 23:00 07:00 15:00 23:00 Intake Total 380 ml 240 ml 480 ml Output Total 550 ml 500 ml 300 ml 150 ml Balance -550 ml -500 ml 380 ml -60 ml 330 ml Intake Oral 380 ml 240 ml 480 ml Output Urine Total 550 ml 300 ml Stool Total 500 ml 150 ml # Voids 5 3 # Bowel Movements 0 0 Objective Remarks GENERAL: MBMN WF, on Vent SKIN: Warm and dry. HEAD: Normocephalic. EYES: No scleral icterus. No injection or drainage. NECK: Supple, trachea midline. No JVD or lymphadenopathy. CARDIOVASCULAR: Regular rate and rhythm without murmurs, gallops, or rubs. RESPIRATORY: Breath sounds equal bilaterally. No accessory muscle use. GASTROINTESTINAL: Abdomen soft, non-tender, nondistended. Ileostomy MUSCULOSKELETAL: No cyanosis, or edema. BACK: Nontender without obvious deformity. No CVA tenderness. A/P Assessment and Plan VDRF, s/p extubation 10/10 COPD Exac HTN Nicotine use S/p Exp Lap, ileostomy PLAN Encourage PO. Physical therapy. Cont Budesonide and Duonebs Stable on RA Abdirahman Marquez MD Nov 17, 2016 18:09
[2016-11-17] MEDS: ENOXAPARIN SODIUM 40 MG/0.4 ML SYRINGE SQ SCH (21:03)
[2016-11-18] VITALS (9 sets, daily range): BP systolic 101–117; BP diastolic 55–65; PULSE 72–94; RESP 16–20; TEMP 97.5–98.6; O2SAT 93–98
[2016-11-18] MEDS: LORazepam 1 MG TAB PO PRN ×3 (00:27→16:49)
[2016-11-18] MEDS: DILTIAZEM HCL 60 MG TAB PO SCH ×4 (01:05→22:56)
[2016-11-18] MEDS: hydrALAZINE HCL 50 MG TAB PO SCH ×3 (06:00→22:57)
[2016-11-18] MEDS: ACETAMINOPHEN/HYDROcodone 325 MG/7.5 MG TAB PO PRN ×4 (06:23→22:56)
[2016-11-18] MEDS: RESP: BUDESONIDE 0.5 MG/2 ML NEB NEB SCH ×2 (07:59→19:09)
[2016-11-18] MEDS: CHLORHEXIDINE 0.12% (ORAL KIT) 15 ML CUP MT SCH ×2 (08:00→20:00)
[2016-11-18] MEDS: POTASSIUM CHLORIDE 20 MEQ CONTROLLED RELEASE TAB PO SCH ×2 (08:37→22:56)
[2016-11-18] MEDS: GABAPENTIN 300 MG CAP PO SCH ×3 (08:37→16:48)
[2016-11-18] MEDS: TIOTROPIUM BROMIDE 18 MCG INH INH SCH (08:38)
[2016-11-18] MEDS: BUDESONIDE-FORMOTEROL 160/4.5 MCG INHALER INH SCH ×2 (08:38→22:57)
[2016-11-18] MEDS: PANTOPRAZOLE SOD 20 MG DELAYED RELEASE TAB PO SCH (08:38)
[2016-11-18] MEDS: SODIUM CHLORIDE 0.9% FLUSH 10 ML FLUSH IV FLUSH SCH ×2 (08:39→21:00)
[2016-11-18] MEDS: BENEPROTEIN POWDER 1 PACK G-TUBE SCH ×3 (08:40→16:48)
[2016-11-18 09:56] LABS: ANION GAP 9 MEQ/L (5-15); AST (GOT) 37 U/L (15-37); BICARBONATE 24.8 MEQ/L (21.0-32.0); BLOOD UREA NITROGEN 5 MG/DL (7-18); CHLORIDE 105 MEQ/L (98-107); GLOMERULAR FILTRATION RATE 239 ML/MIN (>89); POTASSIUM 3.6 MEQ/L (3.5-5.1); SODIUM (NA) 139 MEQ/L (136-145)
[2016-11-18 09:58] LABS: ALT (GPT) 72 U/L (10-53)
[2016-11-18 09:59] LABS: ALKALINE PHOSPHATASE 150 U/L (45-117); TOTAL BILIRUBIN ADULT 0.4 MG/DL (0.2-1.0)
[2016-11-18] MEDS: RESP: ALBUTEROL 2.5 MG/IPRATROPIUM 0.5 MG NEB (PRN) NEB ×2 (12:27→19:10)
--- NOTE | 2016-11-18 12:42 | PD.WCN.NOT ---
Wound Consult Description: Consult placed per Dr Yo for "stoma" Communicated with: Patient HALEIGH Noyola Recommendation: Encouraged patient to open and close pouch at top or bottom to release air and empty ileostomy pouch of effluent when 1/2-1/3 full Have patient participate when ileostomy care is taking place Additional Information: Patient seen on [address] [place] [address] for Ostomy assessment. Ostomy Type: Ileostomy Surgeon: Victor Manuel Yo MD Date of Surgery: Oct 13, 2016 Complete: Starter kit, Education materials, Other (patient instructed to call staff when pouch begins to feel heavy or is in need of emptying/releasing air etc.) Educated patient on: Emptying the pouch when 1/3-1/2 full Additional information Patient seen on [address] [place] [address] for Ostomy assessment. Stoma is functioning with soft green effluent noted to pouch which was emptied by automotive service writer with amount of output given to HALEIGH Noyola. Patient was encouraged to start emptying the pouch of effluent independently as there are plans for her to go home soon. Nell Nur [facility] Nov 18, 2016 12:42
[2016-11-18] MEDS ORDERED: WHEEMIS3 (13:11)
--- NOTE | 2016-11-18 15:53 | HHI.PR ---
Subjective Remarks Resting comfortably in bed No event overnight Denied chest and or short of breath No fever or chills Objective Vitals Vital Signs Date Time Temp Pulse Resp B/P (MAP) Pulse Ox O2 Delivery O2 Flow Rate FiO2 11/18/16 12:00 98.2 93 16 117/60 (79) 94 11/18/16 08:01 98 21 11/18/16 08:00 Room Air 11/18/16 08:00 98.6 77 16 101/55 (70) 93 11/18/16 06:21 72 103/57 (72) 11/18/16 04:00 Room Air 11/18/16 04:00 98.2 74 18 110/56 (74) 96 11/18/16 00:00 Room Air 11/18/16 00:00 98.4 87 18 104/63 (77) 96 11/17/16 20:00 Room Air 11/17/16 20:00 97.6 89 18 118/59 (78) 98 11/17/16 18:52 18 11/17/16 16:00 98.1 93 18 121/65 (83) 97 11/17/16 15:57 98 21 I/O 11/17/16 11/17/16 11/17/16 11/18/16 11/18/16 11/18/16 06:59 14:59 22:59 06:59 14:59 22:59 Intake Total 240 ml 480 ml 380 ml 580 ml Output Total 300 ml 150 ml 1400 ml Balance -60 ml 330 ml 380 ml -820 ml Intake Oral 240 ml 480 ml 380 ml 580 ml Output Urine Total 300 ml 1000 ml Stool Total 150 ml 400 ml # Voids 3 # Bowel Movements 0 Result Diagram: 11/18/16 0707 Objective Remarks GENERAL: This is a well-nourished, well-developed patient, in no apparent distress. SKIN: No rashes, warm and dry HEAD: Atraumatic. Normocephalic. EYES: Pupils equal round and reactive. Extraocular motions intact. No scleral icterus. ENT: Nose without bleeding, or drainage, Airway patent. NECK: Trachea midline. Supple CARDIOVASCULAR: Regular rate and rhythm without murmurs, gallops, or rubs. RESPIRATORY: Fair air entry bilaterally. No wheezes, rales, or rhonchi. GASTROINTESTINAL: Abdomen soft, non-tender, nondistended. Positive bowel sounds MUSCULOSKELETAL: Extremities without clubbing, cyanosis, or edema. Pedal pulses appreciated NEUROLOGICAL: Awake and alert. Moves all extremity. Normal speech.no focal neurological deficit Procedures Endotracheal Intubation and extubation. Expressive Colonoscopy Ileostomy A/P Assessment and Plan 56-year-old female admitted secondary to respiratory distress and COPD and pneumonia. GI complications, now status post ileostomy. Continue physical therapy. C-spine MRI is within normal limits. MRI of brain shows abnormal findings which are not specific (scattered white matter lesions, multiple sclerosis versus ischemic changes). Symbicort and albuterol resumed. Continue to follow patient's neuro status. 11/16: Continue efforts with PT OT, follow improvement 11/17: L FT shown to be elevated, will repeat to monitor the trend, continue PT OT effort, pulmonary requested PFT check 11/18: LFT today >AST dropped to normal limit 37, ALT 72, alkaline phosphatase 150, continue current care, effort for placement ongoing A/P: Paraplegia Critical Illness Polyneuropathy as per Neurology specialist, secondary to bedridden status plus steroids plus infection. MRI brain completed and per Neuro , do not think its MS or cord lesion, also less likely MS as no improvement on steroids. 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 - Continue participation with PT and OT. Requested PT to work with pt 7 days a week. - Continue gabapentin for paresthesias. Increased to 300 mg TID. - Limit steroid use and repeat MRI in 2 to 3 months. Acute hypercarbic respiratory failure/ COPD exacerbation, resolved/ HCAP, LLL infiltrate Extubated 10/10. Pulmonary and ID following - stable from pulm standpoint and ID has signed off. Breathing well on room air. - Continue bronchodilators, Mucolytic and Incentive spirometry. - Continue Duonebs. - Oxygen as needed. Chest tightness Atypical, worse after meals and with lying supine, fullness after meals. Unlikely of cardiac origin. Suspect GI etiology. CXR 09/30 reviewed and is normal examination. EKG with NSR. Echo 09/10/15 EF 55-60%, normal wall motion, PA peak pressure 35mm Hg. - Resolved. Colonic ileus Status post ileostomy placed 10/13/16 for pneumoperitoneum/ ileus. - Regular diet. - completed course of Levaquin and Flagyl 10/24/16 as per ID specialist. - Surgery following. Chronic left sided abdominal pain The pt has had this pain for 6 years but complaining of worsening over the past few days. LFTs elevated but stable compared to previous values. Lipase unremarkable. - continue PPI. Add Maalox. - consider repeating CT. - will refer to outpatient gastroenterology and gynecology after discharge for further workup. Pt would likely benefit from an EGD and a rule out of gynecological issues. History of tobacco abuse Currently weaned off all nicotine. - Strongly recommended to stop smoking. Hypertension Controlled. - Lisinopril and Lopressor on hold due to relative hypotension. - continue on Cardizem 60mg q6h and Hydralazine 50mg q8hr. Low TSH, low free T3 and low free T4 Unsure of clinical significance especially in light of normal MRI findings. - recommend repeat as outpatient in 2 months. Anemia Hgb has been decreasing. Possibly anemia of chronic disease. - monitor as needed. Anxiety/ Insomnia Chronic. - Ativan and Ambien as needed. Hoarse voice Likely s/t intubation. Possible laryngeal nerve injury. Possible GERD. - increase PPI. - Lozenges as needed. - outpt ENT follow-up. DVT prophylaxis SCDs Lovenox 40mg sq Discharge Planning Awaiting medicaid application. Apparently the patient has no payer source. She will need to improve with physical therapy in order to go home as she will not have any benefits for rehabilitation. Pia Ospina MD Nov 18, 2016 15:53
--- NOTE | 2016-11-18 18:57 | HHI.PR ---
Subjective Remarks 56 YOWF with VDRF, , extubated 10/10 no Fever Appetite good Breathing nebs helps Being trained for ilostomy care Walked with PT 42 feet Objective Vital Signs Vital Signs Date Time Temp Pulse Resp B/P (MAP) Pulse Ox O2 Delivery O2 Flow Rate FiO2 11/18/16 16:00 97.5 88 19 102/65 (77) 94 11/18/16 12:00 98.2 93 16 117/60 (79) 94 11/18/16 08:01 98 21 11/18/16 08:00 Room Air 11/18/16 08:00 98.6 77 16 101/55 (70) 93 11/18/16 06:21 72 103/57 (72) 11/18/16 04:00 Room Air 11/18/16 04:00 98.2 74 18 110/56 (74) 96 11/18/16 00:00 Room Air 11/18/16 00:00 98.4 87 18 104/63 (77) 96 11/17/16 20:00 Room Air 11/17/16 20:00 97.6 89 18 118/59 (78) 98 I/O 11/17/16 11/17/16 11/17/16 11/18/16 11/18/16 11/18/16 07:00 15:00 23:00 07:00 15:00 23:00 Intake Total 240 ml 480 ml 380 ml 580 ml 1200 ml Output Total 300 ml 150 ml 1400 ml Balance -60 ml 330 ml 380 ml -820 ml 1200 ml Intake Oral 240 ml 480 ml 380 ml 580 ml 1200 ml Output Urine Total 300 ml 1000 ml Stool Total 150 ml 400 ml # Voids 3 5 # Bowel Movements 0 Result Diagram: 11/18/16 0707 Objective Remarks GENERAL: MBMN WF, on Vent SKIN: Warm and dry. HEAD: Normocephalic. EYES: No scleral icterus. No injection or drainage. NECK: Supple, trachea midline. No JVD or lymphadenopathy. CARDIOVASCULAR: Regular rate and rhythm without murmurs, gallops, or rubs. RESPIRATORY: Breath sounds equal bilaterally. No accessory muscle use. GASTROINTESTINAL: Abdomen soft, non-tender, nondistended. Ileostomy MUSCULOSKELETAL: No cyanosis, or edema. BACK: Nontender without obvious deformity. No CVA tenderness. A/P Assessment and Plan VDRF, s/p extubation 10/10 COPD Exac HTN Nicotine use S/p Exp Lap, ileostomy PLAN Encourage PO. Physical therapy. Cont Budesonide and Duonebs Stable on RA Cont PT Abdirahman Marquez MD Nov 18, 2016 18:57
[2016-11-18] MEDS: ENOXAPARIN SODIUM 40 MG/0.4 ML SYRINGE SQ SCH (22:56)
[2016-11-18] MEDS: LORazepam 0.5 MG TAB PO PRN (23:30)
[2016-11-19] VITALS: BP 125/66; PULSE 89; RESP 18; TEMP 98.2; O2SAT 94
[2016-11-19] MEDS: DILTIAZEM HCL 60 MG TAB PO SCH ×4 (01:10→12:54)
[2016-11-19] MEDS: LORazepam 1 MG TAB PO PRN ×2 (01:10→09:16)
[2016-11-19 04:00] VITALS: BP 95/52; PULSE 79; RESP 16; TEMP 97.7; O2SAT 93
[2016-11-19] MEDS: hydrALAZINE HCL 50 MG TAB PO SCH (05:50)
[2016-11-19] MEDS: CHLORHEXIDINE 0.12% (ORAL KIT) 15 ML CUP MT SCH (07:17)
[2016-11-19] MEDS: RESP: ALBUTEROL 2.5 MG/IPRATROPIUM 0.5 MG NEB (PRN) NEB (07:29)
[2016-11-19] MEDS: RESP: BUDESONIDE 0.5 MG/2 ML NEB NEB SCH (07:29)
[2016-11-19 08:00] VITALS: BP 107/62; PULSE 75; RESP 20; TEMP 97.1; O2SAT 98
[2016-11-19] MEDS: BENEPROTEIN POWDER 1 PACK G-TUBE SCH ×2 (08:21→12:45)
[2016-11-19] MEDS: GABAPENTIN 300 MG CAP PO SCH ×2 (08:40→12:54)
[2016-11-19] MEDS: POTASSIUM CHLORIDE 20 MEQ CONTROLLED RELEASE TAB PO SCH (08:40)
[2016-11-19] MEDS: ACETAMINOPHEN/HYDROcodone 325 MG/7.5 MG TAB PO PRN ×2 (08:41→12:55)
[2016-11-19] MEDS: SODIUM CHLORIDE 0.9% FLUSH 10 ML FLUSH IV FLUSH SCH (08:41)
[2016-11-19] MEDS: PANTOPRAZOLE SOD 20 MG DELAYED RELEASE TAB PO SCH (08:41)
[2016-11-19] MEDS: BUDESONIDE-FORMOTEROL 160/4.5 MCG INHALER INH SCH (08:43)
[2016-11-19] MEDS: TIOTROPIUM BROMIDE 18 MCG INH INH SCH (08:43)
--- NOTE | 2016-11-19 09:18 | RSPPFT ---
DATE OF PROCEDURE: 11/16/16 COMMENTS: Spirometry shows FVC of 1.8 at 67% of predicted, FEV1 of 1.0 at 46%, FEV1/FVC ratio is decreased. Flow is decreased at FEF 25, FEF 50, FEF 75, FEF 25-75. There is no response after acutely inhaled bronchodilator treatment. Flow volume loop indicates an obstructive pattern. IMPRESSION: 1. Moderately severe obstructive lung disease. 2. No response after bronchodilator treatment.
[2016-11-19 12:00] VITALS: BP 104/56; PULSE 84; RESP 20; TEMP 98.9; O2SAT 93
[2016-11-19] MEDS ORDERED: NEUR300C PO (12:45)
[2016-11-19] MEDS ORDERED: PANT20 PO (12:45)
[2016-11-19] MEDS ORDERED: HYDR-3800 PO (12:45)
[2016-11-19] MEDS ORDERED: HYDR-3580 PO (12:45)
[2016-11-19] MEDS ORDERED: DILT60TA33 PO (12:45)
[2016-11-19] MEDS ORDERED: POTA20TA5 PO (12:45)
[2016-11-19] MEDS ORDERED: BEDSIDE COMMODE1 MI1 (12:47)
--- NOTE | 2016-11-19 12:48 | PD.WCN.NOT ---
Wound Consult Description: Consult placed per Dr Yo for "stoma" Communicated with: Patient Recommendation: Encouraged patient to open and close pouch at top or bottom to release air and empty ileostomy pouch of effluent when 1/2-1/3 full Have patient participate when ileostomy care is taking place Additional Information: Patient seen on for ostomy assessment. Patient is lying bed with significant other at bedside. Ostomy is functioning with green soft effluent noted in pouch with air. Patient demonstrated how to release the air and states that she has been taking care of it herself. Patient has supplies to go home with and scripts left on chart for pending discharge home. Patient has no questions at this time. Ostomy Type: Ileostomy Surgeon: Victor Manuel Yo MD Date of Surgery: Oct 13, 2016 Complete: Starter kit, Education materials, Rx (Script left on chart for convatec appliances in size 1 3/4") [facility] Nov 19, 2016 12:48
--- NOTE | 2016-11-19 12:51 | HHI.PR ---
Subjective Remarks stable for dc today Objective Vitals Vital Signs Date Time Temp Pulse Resp B/P (MAP) Pulse Ox O2 Delivery O2 Flow Rate FiO2 11/19/16 08:00 Room Air 11/19/16 08:00 97.1 75 20 107/62 (77) 98 11/19/16 04:00 97.7 79 16 95/52 (66) 93 11/19/16 00:00 98.2 89 18 125/66 (85) 94 11/19/16 00:00 Room Air 11/18/16 20:00 98.0 94 20 117/64 (81) 93 11/18/16 20:00 Room Air 11/18/16 19:09 94 21 11/18/16 16:00 97.5 88 19 102/65 (77) 94 I/O 11/18/16 11/18/16 11/18/16 11/19/16 11/19/16 11/19/16 07:00 15:00 23:00 07:00 15:00 23:00 Intake Total 580 ml 1200 ml 580 ml Output Total 1400 ml 750 ml 300 ml Balance -820 ml 1200 ml -170 ml -300 ml Intake Oral 580 ml 1200 ml 580 ml Output Urine Total 1000 ml 750 ml Stool Total 400 ml 300 ml # Voids 5 Result Diagram: 11/18/16 0707 Objective Remarks GENERAL: This is a well-nourished, well-developed patient, in no apparent distress. SKIN: No rashes, warm and dry HEAD: Atraumatic. Normocephalic. EYES: Pupils equal round and reactive. Extraocular motions intact. No scleral icterus. ENT: Nose without bleeding, or drainage, Airway patent. NECK: Trachea midline. Supple CARDIOVASCULAR: Regular rate and rhythm without murmurs, gallops, or rubs. RESPIRATORY: Fair air entry bilaterally. No wheezes, rales, or rhonchi. GASTROINTESTINAL: Abdomen soft, non-tender, nondistended. Positive bowel sounds MUSCULOSKELETAL: Extremities without clubbing, cyanosis, or edema. Pedal pulses appreciated NEUROLOGICAL: Awake and alert. Moves all extremity. Normal speech.no focal neurological deficit Procedures Endotracheal Intubation and extubation. Expressive Colonoscopy Ileostomy A/P Assessment and Plan 56-year-old female admitted secondary to respiratory distress and COPD and pneumonia. GI complications, now status post ileostomy. Continue physical therapy. C-spine MRI is within normal limits. MRI of brain shows abnormal findings which are not specific (scattered white matter lesions, multiple sclerosis versus ischemic changes). Symbicort and albuterol resumed. Continue to follow patient's neuro status. 11/16: Continue efforts with PT OT, follow improvement 11/17: L FT shown to be elevated, will repeat to monitor the trend, continue PT OT effort, pulmonary requested PFT check 11/18: LFT today >AST dropped to normal limit 37, ALT 72, alkaline phosphatase 150, continue current care, effort for placement ongoing A/P: Paraplegia Critical Illness Polyneuropathy as per Neurology specialist, secondary to bedridden status plus steroids plus infection. MRI brain completed and per Neuro , do not think its MS or cord lesion, also less likely MS as no improvement on steroids. 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 - Continue participation with PT and OT. Requested PT to work with pt 7 days a week. - Continue gabapentin for paresthesias. Increased to 300 mg TID. - Limit steroid use and repeat MRI in 2 to 3 months. Acute hypercarbic respiratory failure/ COPD exacerbation, resolved/ HCAP, LLL infiltrate Extubated 10/10. Pulmonary and ID following - stable from pulm standpoint and ID has signed off. Breathing well on room air. - Continue bronchodilators, Mucolytic and Incentive spirometry. - Continue Duonebs. - Oxygen as needed. Chest tightness Atypical, worse after meals and with lying supine, fullness after meals. Unlikely of cardiac origin. Suspect GI etiology. CXR 09/30 reviewed and is normal examination. EKG with NSR. Echo 09/10/15 EF 55-60%, normal wall motion, PA peak pressure 35mm Hg. - Resolved. Colonic ileus Status post ileostomy placed 10/13/16 for pneumoperitoneum/ ileus. - Regular diet. - completed course of Levaquin and Flagyl 10/24/16 as per ID specialist. - Surgery following. Chronic left sided abdominal pain The pt has had this pain for 6 years but complaining of worsening over the past few days. LFTs elevated but stable compared to previous values. Lipase unremarkable. - continue PPI. Add Maalox. - consider repeating CT. - will refer to outpatient gastroenterology and gynecology after discharge for further workup. Pt would likely benefit from an EGD and a rule out of gynecological issues. History of tobacco abuse Currently weaned off all nicotine. - Strongly recommended to stop smoking. Hypertension Controlled. - Lisinopril and Lopressor on hold due to relative hypotension. - continue on Cardizem 60mg q6h and Hydralazine 50mg q8hr. Low TSH, low free T3 and low free T4 Unsure of clinical significance especially in light of normal MRI findings. - recommend repeat as outpatient in 2 months. Anemia Hgb has been decreasing. Possibly anemia of chronic disease. - monitor as needed. Anxiety/ Insomnia Chronic. - Ativan and Ambien as needed. Hoarse voice Likely s/t intubation. Possible laryngeal nerve injury. Possible GERD. - increase PPI. - Lozenges as needed. - outpt ENT follow-up. DVT prophylaxis SCDs Lovenox 40mg sq Discharge Planning Awaiting medicaid application. Apparently the patient has no payer source. She will need to improve with physical therapy in order to go home as she will not have any benefits for rehabilitation. Pia Ospina MD Nov 19, 2016 12:51
[2016-11-19 12:52] VITALS: BP 131/66
[2016-11-19] MEDS: hydrALAZINE HCL 25 MG TAB PO SCH ×2 (12:56→14:00)
[2016-11-19] MEDS ORDERED: LORA-392 PO (15:09)
--- NOTE | 2016-11-19 15:59 | HHI.DS ---
Discharge Summary Admission Date Sep 25, 2016 at 06:19 Discharge Date: Nov 19, 2016 Admitting Diagnosis resp distress, COPD (1) Acute respiratory failure ICD Code: J96.00 - Acute respiratory failure, unspecified whether with hypoxia or hypercapnia Status: Acute (2) Cardiac arrest ICD Code: I46.9 - Cardiac arrest, cause unspecified Status: Resolved (3) Asystole ICD Code: I46.9 - Cardiac arrest, cause unspecified Status: Resolved (4) Acute hypernatremia ICD Code: E87.0 - Hyperosmolality and hypernatremia Status: Acute (5) Hypermagnesemia ICD Code: E83.41 - Hypermagnesemia Status: Acute (6) Alcohol abuse ICD Code: F10.10 - Alcohol abuse, uncomplicated Status: Chronic (7) Acidosis ICD Code: E87.2 - Acidosis Status: Resolved (8) Hyperglycemia ICD Code: R73.9 - Hyperglycemia, unspecified Status: Resolved (9) Tobacco abuse ICD Code: Z72.0 - Tobacco use Status: Chronic (10) FISHER TERRAPIN demyelination ICD Code: G37.9 - Demyelinating disease of central nervous system, unspecified Status: Acute (11) Acute and chronic respiratory failure ICD Code: J96.20 - Acute and chronic respiratory failure, unspecified whether with hypoxia or hypercapnia Status: Chronic (12) COPD with exacerbation ICD Code: J44.1 - Chronic obstructive pulmonary disease with (acute) exacerbation Status: Acute (13) Acute kidney injury ICD Code: N17.9 - Acute kidney failure, unspecified Status: Resolved (14) Acute respiratory failure with hypoxia ICD Code: J96.01 - Acute respiratory failure with hypoxia Status: Acute (15) Critical illness polyneuropathy ICD Code: G62.81 - Critical illness polyneuropathy Status: Acute (16) Adjustment disorder with anxiety ICD Code: F43.22 - Adjustment disorder with anxiety (17) Critical illness myopathy ICD Code: G72.81 - Critical illness myopathy Status: Acute Procedures Endotracheal Intubation and extubation. Expressive Colonoscopy Ileostomy Brief History - From Admission History from patient, ER physician communication, and review of medical records. Patient is somewhat of a poor historian as she is in acute respiratory distress and on BiPAP at the time of my examination. She is able to answer questions by stating yes or no. Whenever she tries to talk, she does get tired and also the BiPAP sounds muffled her voice. Has been short of breath for the past 2 or 3 days. She does admit to having cough. Also had subjective fevers for the past few days. Also reports of nausea. Apart from that, patient denies any vomiting/diarrhea/urinary burning or pain on urination. Denies any hematemesis/hematochezia/melena/hematuria. Denies any chest pains/palpitations/focal weakness. Denies any passing out episodes. She does report of history of COPD and asthma. On review of medical records, patient does have history of COPD and was intubated with prolonged ICU stay August 2015 Patient initially came to the emergency room and was discharged. She did not make it at home even few hours and was in acute respiratory distress requiring her to come back then. She was given Solu-Medrol, and Ativan by EMS. The time of my exam, after evaluation, I have also given her Ativan 0.5 mg IV. Solu-Medrol 125 mg IV 1. CBC/BMP: 11/18/16 0707 Significant Findings Laboratory Tests Test 11/18/16 07:07 Blood Urea Nitrogen 5 MG/DL (7-18) Creatinine 0.29 MG/DL (0.50-1.00) Random Glucose 68 MG/DL (74-106) Total Protein 5.7 GM/DL (6.4-8.2) Albumin 2.3 GM/DL (3.4-5.0) Alkaline Phosphatase 150 U/L (45-117) Alanine Aminotransferase (ALT/SGPT) 72 U/L (10-53) PE at Discharge GENERAL: This is a well-nourished, well-developed patient, in no apparent distress. SKIN: No rashes, warm and dry HEAD: Atraumatic. Normocephalic. EYES: Pupils equal round and reactive. Extraocular motions intact. No scleral icterus. ENT: Nose without bleeding, or drainage, Airway patent. NECK: Trachea midline. Supple CARDIOVASCULAR: Regular rate and rhythm without murmurs, gallops, or rubs. RESPIRATORY: Fair air entry bilaterally. No wheezes, rales, or rhonchi. GASTROINTESTINAL: Abdomen soft, non-tender, nondistended. Positive bowel sounds MUSCULOSKELETAL: Extremities without clubbing, cyanosis, or edema. Pedal pulses appreciated NEUROLOGICAL: Awake and alert. Moves all extremity. Normal speech.no focal neurological deficit Transfer Summary The patient is a 56-year-old female with past medical history of COPD and hypertension who presented to the [facility] ED with a 2-week history of progressive shortness of breath. In addition, she reports a dry cough and wheezing. The patient denies any constitutional symptoms. In addition she denies any nausea, vomiting, or abdominal pain. No history of orthopnea, PND or edema of lower extremities. She denies any use of oxygen at home; however, she uses nebulizers and is on Symbicort. In the ED the patient was given IV steroids and bronchodilator treatments. She was in the ER last night with the same presentation and after several hours of treatments she was discharged with a prescription for a tapered dose of prednisone. In addition, she was given a new albuterol inhaler. She came back a few hours later in respiratory distress. A chest x-ray from last night showed no acute disease. No laboratory data or blood gases available today; however, ABG from last night on a BiPAP 02/03 with 35% FIO2 showed a pH of 7.37, CO2 40, pAO2 of 105, bicarb 23 and saturation of 96%. 09/26 Patient was intubated yesterday for resp distress sedated with Versed 5mg and low doses Fentanyl and Diprivan. Afebrile. Given 1L NS last night for hypotension 09/27 Patient is sedated with Fentanyl and intubated. Afebrile. Patient was initially placed on PC/AC last night however his ABG showed acute resp acidosis with PH: 7.26,COP2 52 he was placed back on PRVC/AC mode. 09/28 Patient remains sedated with Fentanyl and versed placed on Nimbex overnight. Afebrile. WBC is trending down. 09/29 No events overnight. Sedated and intubated. Hypertensive. 09/30 Patient remains intubated and sedated. Off Nimbex. Afebrile. 10/01: Patient has significant bilateral wheezing. Abdominal distention increasing. No bowel movement since admission. KUB pending. Reduced RR to 14 to avoid air trapping 10/02 No events overnight, sedated with Fentanyl and Versed. Afebrile. s/p colonoscopy yesterday for colonic decompression, rectal tube to suction 10/03: . Plan for decompressive colonoscopy today due to 10.5 cm cecum. Patient is arousable and follows commands. FiO2 35%. Saturations 99%. No bowel movement. Subjective 10/04: Status post expressive colonoscopy yesterday. X-ray revealed 11.7 cm dilated: Today. Bladder pressures around 9-11. This a.m., asynchronous with the ventilator so paralyzed with rocuronium currently on a Nimbex drip. 10/05 Patient remains sedated and intubated in addition he is on Nimbex. Afebrile. 10/06 Patient remains intubated and sedated with Versed and Diprivan , on Nimbex. Afebrile. 10/07: Remains intubated, sedated. Abdomen remains distended. GI planning on decompressive colonoscopy today. Overnight had bowel movement. FiO2 remains high at 60%. Chest x-ray shows left lower lobe consolidation. Start cefepime 2 g IV every 8 hours 10/08 Patient is sedated with Versed and Diprivan. s/p colonoscopy yesterday for colonic decompression. On PRVC with PEEP:8 and 50% FIO2. 10/09 No events overnight. sedated with Diprivan and versed. Afebrile. On PRVC with PEEP: 8, FIO2 45%. 10/10 Patient is sedated with Diprivan and intubated. Did not tolerate CPAP trials yesterday as she became tachypneic. Afebrile. 10/11 Patient s/p extubation yesterday placed on BIPAP overnight. Awake and alert. Afebrile. 10/12 No events overnight. Awake and alert. On 3L oxygen with good sats. Afebrile. Intermittent use of BIPAP overnight. 10/13 Patient reports abdominal discomfort denies any N/V. On 2L. Afebrile. 10/14: Tolerating CPAP, will progress to extubation. Warm, well perfused. 10/15: Extubated about 24 hours ago, continues to breath comfortably. Afebrile. Acute hypercarbic respiratory failure - extubated 10/10. Acute COPD exacerbation. Colonic ileus LLL infiltrate/Probable HCAP Bronchospasm Leukocytosis History of tobacco abuse. Hypertension. Internal hemorrhoids Plan Neuro: Awake and alert, avoid sedatives Pulm:Continue with oxygen and maintain sats > 90%. Bronchodilators, Pulmicort nebulizers q. 12, Spiriva one cap daily. d/c Solu-Medrol 40mg Q12, Pulm is following- Dr. Marquez, CV: On Cardizem 60mg QID, add Hydralazine 50mg Q8, Monitor HR and BP keep MAP> 65mmHg. : Monitor renal function, I/O's and electrolyte replacement as needed. GI: On Protonix 40 mg IV daily. D/C PPN at 75 cc an hour with lipids daily. Start tube feeds per surgery service. KUB 10/05- persistent abnormal dilation of bowel- on metoclopramide 10 mg IV every 8 hours. s/p colonoscopy 10/01 and 10/03 for colonic decompression -showed internal and external hemorrhoids. s/p diverting ileostomy 10/13 ID: On Flagyl, Diflucan, Zosyn per ID . Monitor for signs of infections ( Fever , WBC) C-diff PCR-neg Follow up on sputum culture from 10/07 - no growth 10/05 Blood, Urine cx: NGTD 09/27 BC: NGTD 09/26, Sputum cx: normal growth, Urine : NGTD Endo: SSI with accuchecks. Heme: Monitor CBC. GI prophylaxis with Protonix 40 mg daily and DVT prophylaxis with SCDs, Lovenox 40 mg subcu on hold Hospital Course [facility] OT, bronchodilator DuoNeb and oxygen PPI, GI and gynecology consulted to see the patient for her colonic ileus and left sided abdominal pain. For her hypertension lisinopril and Lopressor were on hold patient was on Cardizem 60 every 6 hours and hydralazine 50 every 8 hours, blood pressure was on the low normal side reduced hydralazine to 25 mg, and discussed with the patient and educate her about following her blood pressure and adjusting medication further with her PCP. Patient had a low TSH but low free T3 and T4 need to repeat TSH in 2 months. [id number] encounter performed with the patient on discharge day, as well as physical exam, summary of hospitalization course and postdischarge plan has been D/W the patient. In length and educate her about medication D/W nurse D/W pillowcase maker. Discharge medications reviewed and printed and signed, post discharge follow up visit with PCP and other specialist as well as Brief hospital course and discharge summary has been placed. Pt Condition on Discharge: Fair Discharge Disposition: Discharge Home Discharge Time: > 30 minutes Discharge Instructions DIET: Follow Instructions for: Heart Healthy Diet Activities you can perform: Weight Bearing as Tequila Follow up Referrals: Physical Medicine & Rehab - 3 Months with Kasia Dougherty MD New Medications: Bedside Commode (Bedside Commode) 1 Mis Mis EA .ROUTE DIRECTED, #1 Wheelchair (Wheelchair) 1 Mis Mis EA .ROUTE DIRECTED for weakness, #1 0 Refills Diltiazem (Cardizem) 60 Mg Tab 60 MG PO Q6H for htn, #120 TAB Gabapentin (Neurontin) 300 Mg Cap 300 MG PO TID for ., #90 CAP Hydralazine HCl (Hydralazine HCl) 50 Mg Tablet 25 MG PO Q8HR for htn, #90 TAB Hydrocodone-Acetaminophen (Hydrocodone-Acetaminophen) 7.5-325 mg Tab 1 TAB PO Q4H PRN for pain 5-10, #15 TAB Lorazepam (Ativan) 0.5 Mg Tab 0.5 MG PO HS PRN for Insomnia, #10 TAB Pantoprazole (Protonix) 20 Mg Tab 40 MG PO DAILY for gi, #30 TAB Potassium Chloride Microencaps (Potassium Chloride Microencaps) 20 Meq Tab 20 MEQ PO Q12HR for ., #30 TAB Continued Medications: Albuterol 8.5 GM Inh (Proair Hfa 8.5 GM Inh) 90 Mcg/Act Aer 2 PUFF INH Q6H PRN for SHORTNESS OF BREATH, #1 INHALER 0 Refills 108 mcg/actuation Budesonide-Formoterol Inh (Symbicort Inh) 160-4.5 Mcg/Act Aero 2 PUFF INH Q12HR, #1 INHALER 0 Refills Tiotropium Inh (Spiriva Handihaler) 18 Mcg Cap 18 MCG INH DAILY for COPD, #30 CAP 0 Refills 1 capsule = 18 mcg Pia Ospina MD Nov 19, 2016 15:59
== END 2016-11-19 18:08 | disposition home or self-care (01) | DRG 981 ==
LOC: NEPE 05:56 → NEDA 06:19 → NEDH 11:21 → HIMN 14:00 → HIMW 10-08 04:55 → N03B 10-13 21:30 → N03A 10-14 03:56 → N03B 10-14 19:16 → N04A 10-16 17:48
PROVIDERS: ADMIT Hospitalist; ATTEND Hospitalist
PROC: 5A1955Z Respiratory Ventilation, Greater than 96 Consecutive Hours (ICD-10-PCS; principal; 2016-09-25)
PROC: 5A09357 Assistance with Respiratory Ventilation, Less than 24 Consecutive Hours, Continuous Positive Airway Pressure (ICD-10-PCS; 2016-09-25)
PROC: 0BH17EZ Insertion of Endotracheal Airway into Trachea, Via Natural or Artificial Opening (ICD-10-PCS; 2016-09-25)
PROC: 0DJD8ZZ Inspection of Lower Intestinal Tract, Via Natural or Artificial Opening Endoscopic (ICD-10-PCS; 2016-10-01)
PROC: 0DJD8ZZ Inspection of Lower Intestinal Tract, Via Natural or Artificial Opening Endoscopic (ICD-10-PCS; 2016-10-03)
PROC: 0DJD8ZZ Inspection of Lower Intestinal Tract, Via Natural or Artificial Opening Endoscopic (ICD-10-PCS; 2016-10-07)
PROC: 0D1B0Z4 Bypass Ileum to Cutaneous, Open Approach (ICD-10-PCS; 2016-10-13)
PROC: 0DQH0ZZ Repair Cecum, Open Approach (ICD-10-PCS; 2016-10-13)
PROC: 0DQL0ZZ Repair Transverse Colon, Open Approach (ICD-10-PCS; 2016-10-13)
DX: J44.1 Chronic obstructive pulmonary disease with (acute) exacerbation (principal); J96.01 Acute respiratory failure with hypoxia; K63.1 Perforation of intestine (nontraumatic); G82.50 Quadriplegia, unspecified; G62.81 Critical illness polyneuropathy; G72.81 Critical illness myopathy; J96.02 Acute respiratory failure with hypercapnia; R18.8 Other ascites; N17.9 Acute kidney failure, unspecified; E87.2 Acidosis; K56.7 Ileus, unspecified; K62.6 Ulcer of anus and rectum; J98.11 Atelectasis; J45.901 Unspecified asthma with (acute) exacerbation; E87.1 Hypo-osmolality and hyponatremia; G37.9 Demyelinating disease of central nervous system, unspecified; I95.9 Hypotension, unspecified; I10 Essential (primary) hypertension; K64.8 Other hemorrhoids; K64.4 Residual hemorrhoidal skin tags; R13.10 Dysphagia, unspecified; K66.8 Other specified disorders of peritoneum; E87.6 Hypokalemia; H66.90 Otitis media, unspecified, unspecified ear; E83.39 Other disorders of phosphorus metabolism; E83.41 Hypermagnesemia; G47.00 Insomnia, unspecified; D64.9 Anemia, unspecified; R49.0 Dysphonia; R73.9 Hyperglycemia, unspecified; R74.0 Nonspecific elevation of levels of transaminase and lactic acid dehydrogenase [LDH]; F10.10 Alcohol abuse, uncomplicated; F43.22 Adjustment disorder with anxiety; Y95 Nosocomial condition; Z87.891 Personal history of nicotine dependence
CPT/HCPCS: 31500; 36600; 70551; 71010; 72141; 74000; 74176; 74177; 76937; 80048; 80053; 80076; 80202; 81001; 82150; 82550; 82552; 82607; 82728; 82746; 82805; 82948; 83540; 83550; 83605; 83690; 83735; 84100; 84439; 84443; 84481; 84484; 85007; 85025; 85027; 85610; 86850; 86900; 86901; 87040; 87070; 87086; 87205; 87493; 87641; 93005; 94002; 94003; 94060; 94150; 94640; 94644; 94645; 94664; 94667; 96374; C9113; J0131; J0360; J0692; J1170; J1200; J1450; J1630; J1650; J1956; J2060; J2212; J2250; J2270; J2370; J2405; J2543; J2710; J2765; J2920; J2930; J3010; J3370; J3475; J7030; J7040; J7050; J7611; J7626; P9047; Q9963; Q9967

== ENCOUNTER → 2017-01-18 | Outpatient (CLI) | payer OTHER ==
[~2017-01-18] MED LIST changes: +BEDSIDE COMMODE1 MI1; +DILT60TA33 PO; +HYDR-3580 PO; +HYDR-3800 PO; +LORA-392 PO; +NEUR300C PO; +PANT20 PO; +POTA20TA5 PO; +VENTAER INH; +WHEEMIS3
[2017-01-18 09:50] LABS: BLOOD GAS BASE EXCESS -4.5 mmol/L (-2-2); BLOOD GAS CARBOXYHEMOGLOBIN 0.6 % (0-4); BLOOD GAS HCO3 20 mmol/L (22-26); BLOOD GAS METHEMOGLOBIN 1.1 % (0-2); BLOOD GAS O2 HGB SATURATION 94 % (90-100); BLOOD GAS OXYGEN CONTENT 17.4 Vol % (12.0-20.0); BLOOD GAS PCO2 37 mmHg (38-42); BLOOD GAS PO2 90 mmHg (61-120); BLOOD GAS TOTAL HGB 13.1 G/DL (12.0-16.0); CRITICAL VALUE NO; TEMP CORR TO 98.6
[2017-01-18 09:51] LABS: DRAW SITE RT RADIAL; FIO2 21 %; NUMBER OF ARTERIAL PUNCTURES 1; STAT NO; ULNAR PULSE PRESENT
--- NOTE | 2017-01-19 11:58 | RSPPFT ---
DATE OF PROCEDURE: 01/18/17 COMMENTS: Spirometry shows FVC of 1.9 at 71% of predicted, FEV1 of 08 at 39%, EOI1LKV ratio is decreased. Flow is decreased at FEF 25, FEF 50, FEF 75 and FEF 25-75. There is a good response after bronchodilator treatment. Lung volumes show residual volume is increased. TLC is increased. Diffusion capacity is decreased. Flow volume loop indicates an obstructive pattern. IMPRESSION: 1. Severe obstructive lung disease. 2. Good response after bronchodilator treatment. 3. Lung volumes show hyperinflation and air trapping. 4. Diffusion capacity is decreased. 5. Blood gases show normal oxygenation on with pH of 7.35, PCO23 of 37, PO2 of 90, BiCarb of 20 and O2 Saturation at 94%.
== END ==
LOC: HRSP 08:43
PROVIDERS: ATTEND Specialist
DX: J44.9 Chronic obstructive pulmonary disease, unspecified (principal)
CPT/HCPCS: 36600; 82805; 94060; 94726; 94729

== ENCOUNTER → 2017-01-18 | Outpatient (CLI) | payer OTHER ==
[~2017-01-18] MED LIST changes: +HYDR-3516 PO
[2017-01-18 11:25] LABS: AUTOMATED NEUTROPHIL # 4.5 TH/MM3 (1.8-7.7); BASOPHIL # 0.3 TH/MM3 (0-0.2); BASOPHIL % 3.9 % (0.0-2.0); EOSINOPHIL # 0.5 TH/MM3 (0-0.4); EOSINOPHIL % 5.7 % (0.0-4.0); HEMATOCRIT 42.3 % (35.0-46.0); HEMO FLAGS DIFF FINAL; LYMPH % 31.2 % (9.0-44.0); LYMPHOCYTE # 2.7 TH/MM3 (1.0-4.8); MEAN CELL VOLUME 87.6 FL (80.0-100.0); MEAN CORPUSCULAR HEMOGLOBIN 28.3 PG (27.0-34.0); MEAN CORPUSCULAR HGB CONC 32.3 % (32.0-36.0); MONO % 5.9 % (0.0-8.0); NEUT % 53.3 % (16.0-70.0); PLATELET COUNT 359 TH/MM3 (150-450); RED BLOOD COUNT 4.83 MIL/MM3 (4.00-5.30); RED CELL DISTRIBUTION WIDTH 13.4 % (11.6-17.2); WHITE BLOOD COUNT 8.5 TH/MM3 (4.0-11.0)
[2017-01-18 11:26] LABS: APTT (PATIENT) 23.4 SEC (24.3-30.1); INTERNATIONAL NORMALIZED RATIO 0.9 RATIO; PROTHROMBIN TIME - PATIENT 9.4 SEC (9.8-11.6)
[2017-01-18 11:48] LABS: ANION GAP 9 MEQ/L (5-15); AST (GOT) 42 U/L (15-37); BICARBONATE 22.3 MEQ/L (21.0-32.0); BLOOD UREA NITROGEN 10 MG/DL (7-18); CHLORIDE 106 MEQ/L (98-107); GLOMERULAR FILTRATION RATE 96 ML/MIN (>89); GLUCOSE,FASTING 76 MG/DL (74-99); POTASSIUM 4.2 MEQ/L (3.5-5.1); SODIUM (NA) 137 MEQ/L (136-145)
[2017-01-18 11:59] LABS: ALKALINE PHOSPHATASE 121 U/L (45-117); ALT (GPT) 54 U/L (10-53); TOTAL BILIRUBIN ADULT 0.4 MG/DL (0.2-1.0)
--- NOTE | 2017-01-18 12:44 | RADRPT ---
EXAM DATE/TIME: 01/18/2017 11:24 [place] COMPARISON: No previous studies available for comparison. INDICATIONS : Evaluate for pneumonia, pneumothorax, or communicable disease. Pre op for ileostomy reversal on 01/25. MEDICAL HISTORY : Hypertension. SURGICAL HISTORY : None. ENCOUNTER: Initial ACUITY: 1 day PAIN SCORE: 0/10 LOCATION: Bilateral chest FINDINGS: PA and lateral views of the chest demonstrate the lungs to be symmetrically aerated without evidence of mass, infiltrate or effusion. The cardiomediastinal contours are unremarkable. Osseous structure s are intact. CONCLUSION: No acute disease. Ivan Shepherd MD on January 18, 2017 at 12:42 Board Certified Radiologist. This report was verified electronically.
[2017-01-18 13:18] LABS: BACTERIA, URINE RARE /hpf; BLOOD, URINE SMALL (NEG); CALCIUM OXALATE CRYSTALS,URINE FEW /hpf; GLUCOSE,URINE NEG (NEG); HYALINE CAST, URINE 1 /lpf (RARE); KETONE, URINE NEG (NEG); MUCUS URINE FEW /lpf (OCC); NITRITE,URINE NEG (NEG); SQUAMOUS EPITHELIAL CELL URINE 4 /hpf (0-5); TRANSITIONAL EPI CELLS, URINE <1 /hpf; URINE COLOR YELLOW (YELLW/STRAW)
[2017-01-18 13:20] LABS: COMMENT (UR) CULT NOT INDICATED; CULTURE IF INDICATED CULT NOT INDICATED
--- NOTE | 2017-01-19 18:11 | EKG ---
Date Performed: 01/18/2017 Time Performed: 10:41:11 PTAGE: 56 years EKG: Sinus rhythm NORMAL ECG PREVIOUS TRACING 10/13/16 Slight early repolarization, but no change from the prior tracing. DOCTOR: Nagi Lund Interpretating Date/Time 01/19/2017 18:09:57
== END ==
LOC: CPRE 09:59
PROVIDERS: ATTEND Colon & Rectal Surgery
DX: Z01.812 Encounter for preprocedural laboratory examination (principal); Z01.811 Encounter for preprocedural respiratory examination; Z01.810 Encounter for preprocedural cardiovascular examination; K94.19 Other complications of enterostomy
CPT/HCPCS: 36415; 71020; 80053; 81001; 85025; 85610; 85730; 93005

== ENCOUNTER 2017-01-25 11:56 | Inpatient (IN) | payer OTHER ==
[~2017-01-25] VITALS: Ht 154.9 cm; Wt 63.0 kg
[~2017-01-25 11:56] MED LIST changes: -ALBUAER3 INH; -BEDSIDE COMMODE1 MI1; -DILT60TA33 PO; -HYDR-3516 PO; -HYDR-3580 PO; -HYDR-3800 PO; -LISI10TA PO; -LORA-392 PO; -METO50TA PO; -NEUR300C PO; -PANT20 PO; -POTA20TA5 PO; -PRED10PA2 PO; -WHEEMIS3; -ZITHTAB PO
[2017-01-25] MEDS ORDERED: GLYCOPYRROLATE 1 MG/5 ML SYRINGE IV PUSH ONE (12:00)
[2017-01-25] MEDS ORDERED: LIDOCAINE HCL 1% PF 5 ML SYRINGE OTHER ONE (12:00)
[2017-01-25] MEDS ORDERED: ONDANSETRON HCL 4 MG/2 ML VIAL IV ONE (12:00)
[2017-01-25] MEDS ORDERED: ROCURONIUM INJ 50 MG/5 ML SYRINGE IV PUSH ONE (12:00)
[2017-01-25] MEDS ORDERED: MIDAZOLAM HCL 2 MG/2 ML VIAL IV ONE (12:00)
[2017-01-25] MEDS ORDERED: NEOSTIGMINE 3 MG/3 ML SYR IV ONE (12:00)
[2017-01-25] MEDS ORDERED: LACTATED RINGER'S 1000 ML INJ 1,000 ML IV ONE (12:00)
[2017-01-25] MEDS ORDERED: PHENYLEPH/NS 1000 MCG/10 ML SYR IV ONE (12:00)
[2017-01-25] MEDS ORDERED: DEXAMETHASONE SOD PHOS 4 MG/ML VIAL IV ONE (12:00)
[2017-01-25] MEDS ORDERED: ceFAZolin 1,000 MG/NS 100 ML IV SCH ×2 (12:45)
[2017-01-25] MEDS ORDERED: METOPROLOL TARTRATE 25 MG TAB PO PRN (12:45)
[2017-01-25] MEDS ORDERED: CHLORHEXIDINE GLUCONATE 2 % 1 PACK (2 CLOTHS) TOPICAL PRN (12:45)
[2017-01-25] MEDS ORDERED: SODIUM CHLORID 0.9% 500 ML IV PRN (12:45)
[2017-01-25] MEDS ORDERED: ALVIMOPAN 12 MG CAPSULE - On Call PO SCH (12:45)
[2017-01-25] MEDS ORDERED: LACTATED RINGER'S 1000 ML IV PRN (12:45)
[2017-01-25] MEDS ORDERED: METRONIDAZOLE 500 MG/100 ML ISONTONIC SOLN IV SCH (12:45)
[2017-01-25] MEDS ORDERED: POVIDONE IODINE 5% (ANTISEPSIS KIT) 4 APPLICATIONS EACH NARE PRN (12:45)
[2017-01-25] MEDS ORDERED: DEXT 5%-NACL 0.9% 1000 ML INJ 1,000 ML IV SCH (13:00)
[2017-01-25] MEDS ORDERED: LISI10TA PO (13:15)
--- NOTE | 2017-01-25 14:00 | PD.HP.UP ---
H&P Update Note The Pre-Admit History and Physical Examination regarding the above named patient was reviewed (including, but not limited to, vital signs, heart, lungs, co-morbid conditions), and upon re-examination it is noted that: the patient's condition has not significantly changed since the last examination. Victor Manuel Yo MD Jan 25, 2017 14:00
[2017-01-25] MEDS ORDERED: methylPREDNISolone SOD SUCC 125 MG/2 ML VIAL ONE (15:02)
[2017-01-25] MEDS ORDERED: SODIUM CHLORIDE 0.9% FLUSH 5 ML FLUSH IVF PRN (16:00)
[2017-01-25] MEDS: PCA - TOTAL MG MORPHINE DELIVERED PER SHIFT SCH ×2 (16:00→21:38)
[2017-01-25] MEDS ORDERED: ONDANSETRON HCL 4 MG/2 ML VIAL IV PUSH PRN (16:00)
[2017-01-25] MEDS ORDERED: ACETAMINOPHEN/HYDROcodone 325 MG/5 MG TAB PO PRN ×2 (16:00)
[2017-01-25] MEDS ORDERED: POTASSIUM CHLOR 40 MEQ PREMIX 100 ML IV PRN (16:00)
[2017-01-25] MEDS ORDERED: ENALAPRILAT 2.5 MG/2 ML VIAL IV PUSH PRN (16:00)
[2017-01-25] MEDS ORDERED: POTASSIUM CHLOR 20 MEQ PREMIX 100 ML IV PRN (16:00)
[2017-01-25] MEDS ORDERED: NALOXONE HCL 0.4 MG/ML AMP IV PUSH PRN (16:00)
[2017-01-25] MEDS ORDERED: ENALAPRILAT 1.25 MG/ML VIAL IV PUSH PRN (16:00)
[2017-01-25] MEDS ORDERED: BENZOCAINE 6 MG/MENTHOL 10 MG LOZENGE BUCCAL PRN (16:00)
[2017-01-25] MEDS ORDERED: ACETAMINOPHEN 325 MG TAB PO PRN (16:00)
[2017-01-25] MEDS ORDERED: Post-op Orders (for Pharmacy) MISC XX ONE (16:00)
--- NOTE | 2017-01-25 16:00 | HHI.PR ---
Immediate Post Op Note Procedure Date: Jan 25, 2017 Pre Op Diagnosis: Hx pneumoperitneum Post Op Diagnosis: attn to ileostomy Surgeon: Victor Manuel Yo Water Quality Tester(s): None Procedure: Exploratory lap + SBR/closure ileostomy Findings: adhesions Complications: none Specimen(s) removed: small bowel Estimated blood loss: min Anesthesia: General Drains: None IVF Patient to: PACU Patient Condition: Good Victor Manuel Yo MD Jan 25, 2017 16:00
[2017-01-25] MEDS ORDERED: SUGAMMADEX SODIUM 200 MG/2 ML VIAL IV PUSH ONE ×2 (16:06)
[2017-01-25] MEDS ORDERED: DO NOT ADM ANY ANTICOAGULANT DRUGS PRN (16:09)
[2017-01-25] MEDS ORDERED: ALBUTEROL SULFATE 90 MCG/ACT HFA 8 GM INHALER INH PRN (16:15)
[2017-01-25] MEDS ORDERED: RESP: ALBUTEROL 2.5 MG/3 ML NEB (PRN) NEB (16:15)
[2017-01-25] MEDS: D5-NS + KCL 20 MEQ INJ 1,000 ML IV SCH ×2 (16:40→21:39)
[2017-01-25] MEDS: MORPHINE SULFATE 30 MG/30 ML PCA IV SCH (16:40)
[2017-01-25] MEDS ORDERED: KETOROLAC TROMETHAMINE 30 MG/ML (IVP) VIAL IVP PRN (17:00)
[2017-01-25] MEDS: TIOTROPIUM BROMIDE 18 MCG INH INH SCH (18:00)
[2017-01-25 20:00] VITALS: BP 106/55; PULSE 65; RESP 16; TEMP 96.2; O2SAT 94
[2017-01-25 20:48] VITALS: O2SAT 98
[2017-01-25] MEDS: SODIUM CHLORIDE 0.9% FLUSH 5 ML FLUSH IVF SCH (21:00)
[2017-01-25] MEDS: METOCLOPRAMIDE HCL 10 MG/2 ML VIAL IVS SCH (21:37)
--- NOTE | 2017-01-25 22:27 | MP ---
cc: JESSICA GARRIDO M.D. DATE OF SURGERY 01/25/2017 PREOPERATIVE DIAGNOSIS History of pneumoperitoneum, attention to ileostomy. PROCEDURE Exploratory laparotomy with segmental small bowel resection, closure of ileostomy. POSTOPERATIVE DIAGNOSIS History of pneumoperitoneum, attention to ileostomy. SURGEON Dr. Garrido PROCEDURE The patient was placed in the supine position. After adequate general anesthesia her abdomen was prepped with Betadine solution and draped in usual sterile fashion. Elliptical incision was made over the ileostomy dissecting the proximal and distal limbs free from the subcutaneous tissues. The fascial attachments were released and the bowel mobilized up out of the abdomen. Proximal and distal limbs were further defined and avascular plane created both proximal and distal to the ileostomy, dividing the distal limb between Kochers, dividing the proximal limb with a CARIDAD stapling device, intervening mesentery taken between Tonya's obtaining hemostasis with Vicryl ties. Bowel continuity was then restored by firing the CARIDAD stapler across the antimesenteric ends of the bowel closing the enterotomy with a TA 60 stapler. The mesenteric defect closed with 1-0 Vicryl suture and 3-0 Vicryl crotch suture was placed as well. Bowel returned to the abdominal cavity. Further adhesions around the parietal peritoneum were taken down. The abdominal incision was then closed anatomically in two layers using #1 PDS sutures to reapproximate the respective fascial layers. The subcu tissues irrigated copiously and the skin closed with a row of surgical chris. Wound area washed with normal saline and dried, sterile dressing of Telfa and gauze applied. The patient tolerated the procedure quite well and was brought to recovery room in stable condition. Sponge and needle counts were correct at the end of the procedure. MD HIRA Wylie/RICK /10:03 PM /10:18 PM
[2017-01-25] MEDS: BUDESONIDE-FORMOTEROL 160/4.5 MCG INHALER INH SCH (23:03)
[2017-01-25] MEDS: metroNIDAZOLE 500 MG INJ 100 ML IV SCH (23:09)
[2017-01-26] VITALS (7 sets, daily range): BP systolic 97–155; BP diastolic 53–77; PULSE 69–84; RESP 16–20; TEMP 96.9–99.2; O2SAT 92–97
[2017-01-26] MEDS: D5-NS + KCL 20 MEQ INJ 1,000 ML IV SCH ×5 (04:42→21:35)
[2017-01-26] MEDS: PCA - TOTAL MG MORPHINE DELIVERED PER SHIFT SCH ×3 (06:00→21:44)
[2017-01-26] MEDS: metroNIDAZOLE 500 MG INJ 100 ML IV SCH ×2 (06:07→14:13)
[2017-01-26] MEDS: BUDESONIDE-FORMOTEROL 160/4.5 MCG INHALER INH SCH ×2 (08:26→21:43)
[2017-01-26] MEDS: PANTOPRAZOLE SOD 40 MG DELAYED RELEASE TAB PO SCH (08:27)
[2017-01-26] MEDS: ALVIMOPAN 12 MG CAPSULE - Post-op dosing PO SCH ×2 (08:28→21:42)
[2017-01-26] MEDS: LISINOPRIL 10 MG TAB PO SCH (08:28)
[2017-01-26] MEDS: SODIUM CHLORIDE 0.9% FLUSH 5 ML FLUSH IVF SCH ×2 (08:28→21:00)
[2017-01-26] MEDS: PANTOPRAZOLE SODIUM 40 MG VIAL IVP SCH (08:28)
[2017-01-26] MEDS: METOCLOPRAMIDE HCL 10 MG/2 ML VIAL IVS SCH ×2 (08:28→21:42)
[2017-01-26] MEDS: TIOTROPIUM BROMIDE 18 MCG INH INH SCH (08:29)
[2017-01-26] MEDS: HYDROCHLOROTHIAZIDE 25 MG TAB PO SCH (08:29)
[2017-01-26] MEDS ORDERED: NON-FORMULARY DRUG (Lisinopril-Hctz 1 TAB) PO SCH (09:00)
[2017-01-26 10:14] LABS: AUTOMATED NEUTROPHIL # 15.5 TH/MM3 (1.8-7.7); BASOPHIL # 0.1 TH/MM3 (0-0.2); BASOPHIL % 0.5 % (0.0-2.0); HEMATOCRIT 37.5 % (35.0-46.0); HEMO FLAGS DIFF FINAL; LYMPH % 10.6 % (9.0-44.0); LYMPHOCYTE # 1.9 TH/MM3 (1.0-4.8); MEAN CELL VOLUME 88.1 FL (80.0-100.0); MEAN CORPUSCULAR HEMOGLOBIN 28.4 PG (27.0-34.0); MEAN CORPUSCULAR HGB CONC 32.2 % (32.0-36.0); MONO % 4.7 % (0.0-8.0); NEUT % 84.2 % (16.0-70.0); PLATELET COUNT 339 TH/MM3 (150-450); RED BLOOD COUNT 4.26 MIL/MM3 (4.00-5.30); RED CELL DISTRIBUTION WIDTH 13.3 % (11.6-17.2); WHITE BLOOD COUNT 18.4 TH/MM3 (4.0-11.0)
[2017-01-26 10:33] LABS: POTASSIUM 3.7 MEQ/L (3.5-5.1)
[2017-01-26] MEDS: HEPARIN SODIUM - SQ 10,000 UNITS/ML VIAL SQ SCH (14:14)
[2017-01-26] MEDS ORDERED: ALVIMOPAN 12 MG CAPSULE PO SCH (21:00)
--- NOTE | 2017-01-26 23:30 | HHI.PR ---
Subjective Remarks C/R Surg POD #1 afebrile, VSS UO good breathing well radha PO Objective - Vital Signs Date Time Temp Pulse Resp B/P (MAP) Pulse Ox O2 Delivery O2 Flow Rate FiO2 01/26/17 21:44 18 01/26/17 20:00 98.2 84 139/77 (97) 94 01/26/17 10:42 Nasal Cannula 2.00 Result Diagram: 01/26/1792601/26/17926 Objective Remarks PE alert Abd - soft, wound sandoval, min tympany A/P Assessment and Plan Imp: stable pos-op OOB decr IVF dc triny adv Victor Manuel Tena MD Jan 26, 2017 23:30
[2017-01-27] VITALS (7 sets, daily range): BP systolic 103–161; BP diastolic 53–84; PULSE 69–98; RESP 18–20; TEMP 96.9–99.5; O2SAT 92–98
[2017-01-27] MEDS: MORPHINE SULFATE 30 MG/30 ML PCA IV SCH (04:27)
[2017-01-27] MEDS: D5-NS + KCL 20 MEQ INJ 1,000 ML IV SCH ×2 (04:30→21:16)
[2017-01-27] MEDS: HEPARIN SODIUM - SQ 10,000 UNITS/ML VIAL SQ SCH ×2 (04:30→15:34)
[2017-01-27] MEDS: PCA - TOTAL MG MORPHINE DELIVERED PER SHIFT SCH ×3 (04:30→21:18)
[2017-01-27 06:15] LABS: AUTOMATED NEUTROPHIL # 8.4 TH/MM3 (1.8-7.7); BASOPHIL # 0.1 TH/MM3 (0-0.2); BASOPHIL % 0.9 % (0.0-2.0); EOSINOPHIL % 0.3 % (0.0-4.0); HEMATOCRIT 33.4 % (35.0-46.0); HEMO FLAGS DIFF FINAL; LYMPH % 20.6 % (9.0-44.0); LYMPHOCYTE # 2.4 TH/MM3 (1.0-4.8); MEAN CELL VOLUME 88.3 FL (80.0-100.0); MEAN CORPUSCULAR HEMOGLOBIN 28.9 PG (27.0-34.0); MEAN CORPUSCULAR HGB CONC 32.7 % (32.0-36.0); MONO % 7.1 % (0.0-8.0); NEUT % 71.1 % (16.0-70.0); PLATELET COUNT 250 TH/MM3 (150-450); RED BLOOD COUNT 3.79 MIL/MM3 (4.00-5.30); RED CELL DISTRIBUTION WIDTH 13.6 % (11.6-17.2); WHITE BLOOD COUNT 11.8 TH/MM3 (4.0-11.0)
[2017-01-27 06:40] LABS: BICARBONATE 22.9 MEQ/L (21.0-32.0); POTASSIUM 3.7 MEQ/L (3.5-5.1)
[2017-01-27] MEDS: BUDESONIDE-FORMOTEROL 160/4.5 MCG INHALER INH SCH ×2 (08:30→21:17)
[2017-01-27] MEDS: PANTOPRAZOLE SOD 40 MG DELAYED RELEASE TAB PO SCH (08:31)
[2017-01-27] MEDS: ALVIMOPAN 12 MG CAPSULE - Post-op dosing PO SCH ×2 (08:31→21:16)
[2017-01-27] MEDS: LISINOPRIL 10 MG TAB PO SCH ×2 (08:32→08:34)
[2017-01-27] MEDS: HYDROCHLOROTHIAZIDE 25 MG TAB PO SCH ×2 (08:32→08:34)
[2017-01-27] MEDS: PANTOPRAZOLE SODIUM 40 MG VIAL IVP SCH (08:33)
[2017-01-27] MEDS: METOCLOPRAMIDE HCL 10 MG/2 ML VIAL IVS SCH ×2 (08:33→21:16)
[2017-01-27] MEDS: TIOTROPIUM BROMIDE 18 MCG INH INH SCH (08:35)
[2017-01-27] MEDS: SODIUM CHLORIDE 0.9% FLUSH 5 ML FLUSH IVF SCH ×2 (08:35→21:00)
--- NOTE | 2017-01-27 22:19 | HHI.PR ---
Subjective Remarks C/R Surg POD #2 afebrile, VSS UO good breathing well radha PO Objective - Vital Signs Date Time Temp Pulse Resp B/P (MAP) Pulse Ox O2 Delivery O2 Flow Rate FiO2 01/27/17 21:18 18 01/27/17 20:47 99.5 69 161/84 (109) 98 01/27/17 10:14 Nasal Cannula 2.00 Result Diagram: 01/27/1752901/27/17 0530 Objective Remarks PE alert Abd - soft, wound dry, min tympany No flatus A/P Assessment and Plan Imp: OOB decr IVF dc Victor Manuel Fox MD Jan 27, 2017 22:19
[2017-01-28 00:19] VITALS: BP 152/74; PULSE 74; RESP 18; TEMP 97.7; O2SAT 96
[2017-01-28] MEDS: HEPARIN SODIUM - SQ 10,000 UNITS/ML VIAL SQ SCH (03:26)
[2017-01-28 05:00] VITALS: BP 164/79; PULSE 88; RESP 21; TEMP 97.3; O2SAT 94
[2017-01-28 05:46] VITALS: BP 144/74; PULSE 81; RESP 18; TEMP 99.2; O2SAT 93
[2017-01-28] MEDS: PCA - TOTAL MG MORPHINE DELIVERED PER SHIFT SCH (05:47)
[2017-01-28 08:00] VITALS: PULSE 80; RESP 16; TEMP 98.8; O2SAT 94
[2017-01-28] MEDS ORDERED: HYDR-3516 PO (08:06)
[2017-01-28] MEDS ORDERED: METOCLOPRAMIDE HCL 10 MG/2 ML VIAL IVS PRN (08:30)
--- NOTE | 2017-01-28 08:58 | HHI.PR ---
Subjective Remarks C/R Surg POD #3 afebrile, VSS UO good breathing well radha PO +flatus Objective - Vital Signs Date Time Temp Pulse Resp B/P (MAP) Pulse Ox O2 Delivery O2 Flow Rate FiO2 01/28/17 08:00 98.8 80 16 94 01/27/17 10:14 Nasal Cannula 2.00 Result Diagram: 01/27/1752901/27/17 0530 Objective Remarks PE alert Abd - soft, wound dry, slight red, min tympany No flatus A/P Assessment and Plan Imp: OOB decr IVF adv diet dc plans iVctor Manuel Yo MD Jan 28, 2017 08:58
[2017-01-28] MEDS: SODIUM CHLORIDE 0.9% FLUSH 5 ML FLUSH IVF SCH (09:00)
[2017-01-28] MEDS: TIOTROPIUM BROMIDE 18 MCG INH INH SCH (09:00)
[2017-01-28] MEDS: PANTOPRAZOLE SODIUM 40 MG VIAL IVP SCH (09:00)
[2017-01-28] MEDS: PANTOPRAZOLE SOD 40 MG DELAYED RELEASE TAB PO SCH (09:28)
[2017-01-28] MEDS: HYDROCHLOROTHIAZIDE 25 MG TAB PO SCH (09:29)
[2017-01-28] MEDS: D5-NS + KCL 20 MEQ INJ 1,000 ML IV SCH (09:29)
[2017-01-28] MEDS: ALVIMOPAN 12 MG CAPSULE - Post-op dosing PO SCH (09:29)
[2017-01-28] MEDS: LISINOPRIL 10 MG TAB PO SCH (09:30)
[2017-01-28] MEDS: BUDESONIDE-FORMOTEROL 160/4.5 MCG INHALER INH SCH (09:31)
[2017-01-28 11:08] VITALS: BP 141/72; PULSE 76; RESP 16; TEMP 98.8; O2SAT 95
== END 2017-01-28 13:03 | disposition home or self-care (01) | DRG 331 ==
LOC: HSDI 11:56 → N07B 17:48
PROVIDERS: ADMIT Colon & Rectal Surgery; ATTEND Colon & Rectal Surgery
PROC: 0DQB0ZZ Repair Ileum, Open Approach (ICD-10-PCS; principal; 2017-01-25 14:42)
DX: Z43.2 Encounter for attention to ileostomy (principal); I10 Essential (primary) hypertension; Z87.891 Personal history of nicotine dependence; J44.9 Chronic obstructive pulmonary disease, unspecified
CPT/HCPCS: 80048; 85025; 86850; 86900; 86901; 94150; J0690; J1100; J1644; J2250; J2270; J2370; J2405; J2710; J2765; J2930; J3010; J3480; J7120

== ENCOUNTER → 2017-07-27 | Outpatient (CLI) | payer OTHER ==
[~2017-07-27] MED LIST changes: +ATOR40TA16 PO; +BIOT10TA PO; +HYDR-3516 PO; -IPRASOL INH; +LISI-515 PO; +LISI10TA PO; +UMEC1INH INH; +XANA1TAB2 PO
[2017-07-27 12:23] LABS: AUTOMATED NEUTROPHIL # 6.1 TH/MM3 (1.8-7.7); BASOPHIL # 0.1 TH/MM3 (0-0.2); BASOPHIL % 1.4 % (0.0-2.0); EOSINOPHIL # 0.1 TH/MM3 (0-0.4); EOSINOPHIL % 1.3 % (0.0-4.0); HEMATOCRIT 39.2 % (35.0-46.0); HEMOGLOBIN 13.8 GM/DL (11.6-15.3); LYMPH % 29.3 % (9.0-44.0); LYMPHOCYTE # 2.9 TH/MM3 (1.0-4.8); MEAN CELL VOLUME 87.2 FL (80.0-100.0); MEAN CORPUSCULAR HEMOGLOBIN 30.7 PG (27.0-34.0); MEAN CORPUSCULAR HGB CONC 35.2 % (32.0-36.0); MEAN PLATELET VOLUME 8.8 FL (7.0-11.0); MONO % 6.6 % (0.0-8.0); MONOCYTE # 0.7 TH/MM3 (0-0.9); NEUT % 61.4 % (16.0-70.0); PLATELET COUNT 324 TH/MM3 (150-450); RED CELL DISTRIBUTION WIDTH 13.4 % (11.6-17.2); WHITE BLOOD COUNT 9.9 TH/MM3 (4.0-11.0)
[2017-07-27 12:48] LABS: ALBUMIN 3.9 GM/DL (3.4-5.0); AST (GOT) 28 U/L (15-37); BICARBONATE 25.7 MEQ/L (21.0-32.0); BLOOD UREA NITROGEN 13 MG/DL (7-18); CALCIUM 9.4 MG/DL (8.5-10.1); CHLORIDE 105 MEQ/L (98-107); CREATININE 0.85 MG/DL (0.50-1.00); GLOMERULAR FILTRATION RATE 69 ML/MIN (>89); GLUCOSE,FASTING 77 MG/DL (74-99); SODIUM (NA) 140 MEQ/L (136-145)
[2017-07-27 12:49] LABS: ALT (GPT) 29 U/L (10-53)
[2017-07-27 12:50] LABS: BILIRUBIN, URINE NEG (NEG); BLOOD, URINE SMALL (NEG); GLUCOSE,URINE NEG (NEG); KETONE, URINE NEG (NEG); MUCUS URINE FEW /lpf (OCC); NITRITE,URINE NEG (NEG); PH, URINE 5.5 (5.0-8.5); SQUAMOUS EPITHELIAL CELL URINE 2 /hpf (0-5); URINE COLOR LIGHT-YELLOW (YELLW/STRAW); URINE LEUKOCYTE ESTERASE NEG (NEG)
[2017-07-27 12:51] LABS: ALKALINE PHOSPHATASE 101 U/L (45-117); TOTAL BILIRUBIN ADULT 0.7 MG/DL (0.2-1.0); TOTAL PROTEIN 7.6 GM/DL (6.4-8.2)
== END ==
LOC: CPRE 10:23
PROVIDERS: ATTEND Colon & Rectal Surgery
DX: Z01.812 Encounter for preprocedural laboratory examination (principal); K43.2 Incisional hernia without obstruction or gangrene
CPT/HCPCS: 36415; 80053; 81001; 85025

== ENCOUNTER 2017-08-02 09:50 | Inpatient (IN) | payer OTHER ==
[~2017-08-02] VITALS: Ht 154.9 cm; Wt 70.5 kg
[2017-08-02] VITALS (7 sets, daily range): BP systolic 102–127; BP diastolic 56–67; PULSE 62–82; RESP 16–20; TEMP 97.6–98.1; O2SAT 94–96
[~2017-08-02 09:50] MED LIST changes: -HYDR-3516 PO; -LISI10TA PO; -SPIRCAP INH
[2017-08-02] MEDS ORDERED: PROPOFOL 200 MG/20 ML AMP IV ONE (12:00)
[2017-08-02] MEDS ORDERED: NEOSTIGMINE 5 MG/5 ML SYRINGE IV PUSH ONE (12:00)
[2017-08-02] MEDS ORDERED: ONDANSETRON HCL 4 MG/2 ML VIAL IV PUSH ONE (12:00)
[2017-08-02] MEDS ORDERED: LACTATED RINGER'S 1000 ML INJ 1,000 ML IV ONE (12:00)
[2017-08-02] MEDS ORDERED: ePHEDrine/NS 25 MG/5 ML SYRINGE IV ONE (12:00)
[2017-08-02] MEDS ORDERED: LIDOCAINE HCL 1% PF 5 ML SYRINGE OTHER ONE (12:00)
[2017-08-02] MEDS ORDERED: ROCURONIUM INJ 50 MG/5 ML SYRINGE IV PUSH ONE (12:00)
[2017-08-02] MEDS ORDERED: GLYCOPYRROLATE 1 MG/5 ML SYRINGE IV PUSH ONE (12:00)
[2017-08-02] MEDS ORDERED: DEXAMETHASONE SOD PHOS 4 MG/ML VIAL IV ONE (12:00)
[2017-08-02] MEDS ORDERED: ALVIMOPAN 12 MG CAPSULE - On Call PO SCH (12:29)
[2017-08-02] MEDS ORDERED: ceFAZolin INJ 1,000 MG VIAL ONE (12:39)
[2017-08-02] MEDS ORDERED: ALVIMOPAN 12 MG CAPSULE ONE (12:39)
[2017-08-02] MEDS ORDERED: metroNIDAZOLE 500 MG INJ 100 ML IV ONE (12:39)
[2017-08-02] MEDS ORDERED: SODIUM CHLORIDE 0.9% INJ 100 ML ONE (12:39)
[2017-08-02] MEDS ORDERED: METRONIDAZOLE 500 MG/100 ML ISONTONIC SOLN IV ONE (12:39)
[2017-08-02] MEDS ORDERED: ceFAZolin 1,000 MG/NS 100 ML IV SCH ×2 (12:39)
[2017-08-02] MEDS ORDERED: ACETAMINOPHEN 1000 MG/100 ML 100 ML IV ONE (13:07)
[2017-08-02] MEDS ORDERED: CHLORHEXIDINE GLUCONATE 2 % 1 PACK (2 CLOTHS) TOPICAL PRN (13:30)
[2017-08-02] MEDS ORDERED: METOPROLOL TARTRATE 25 MG TAB PO PRN (13:30)
[2017-08-02] MEDS ORDERED: SODIUM CHLORID 0.9% 500 ML IV PRN (13:30)
[2017-08-02] MEDS ORDERED: POVIDONE IODINE 5% (ANTISEPSIS KIT) 4 APPLICATIONS EACH NARE PRN (13:30)
[2017-08-02] MEDS ORDERED: LACTATED RINGER'S 1000 ML IV PRN (13:30)
[2017-08-02] MEDS: DEXT 5%-NACL 0.9% 1000 ML INJ 1,000 ML IV SCH ×2 (14:00→22:00)
--- NOTE | 2017-08-02 14:09 | PD.HP.UP ---
H&P Update Note The Pre-Admit History and Physical Examination regarding the above named patient was reviewed (including, but not limited to, vital signs, heart, lungs, co-morbid conditions), and upon re-examination it is noted that: the patient's condition has not significantly changed since the last examination. Victor Manuel Yo MD Aug 02, 2017 14:09
[2017-08-02] MEDS ORDERED: BUPIVACAINE HCL PF 0.5% 30 ML VIAL ONE (14:18)
[2017-08-02] MEDS ORDERED: NALOXONE HCL 0.4 MG/ML AMP IV PUSH PRN (16:15)
[2017-08-02] MEDS ORDERED: ACETAMINOPHEN 325 MG TAB PO PRN (16:15)
[2017-08-02] MEDS ORDERED: KETOROLAC TROMETHAMINE 30 MG/ML (IVP) VIAL IVP PRN (16:15)
[2017-08-02] MEDS ORDERED: BUPIVACAINE HCL PF 0.5% 30 ML VIAL NB SCH (16:15)
[2017-08-02] MEDS ORDERED: BENZOCAINE 6 MG/MENTHOL 10 MG LOZENGE BUCCAL PRN (16:15)
[2017-08-02] MEDS ORDERED: UMECLIDINIUM BROMIDE 62.5 MCG INH SCH (16:15)
[2017-08-02] MEDS ORDERED: ENALAPRILAT 2.5 MG/2 ML VIAL IV PUSH PRN (16:15)
[2017-08-02] MEDS ORDERED: ACETAMINOPHEN/HYDROcodone 325 MG/5 MG TAB PO PRN (16:15)
[2017-08-02] MEDS ORDERED: POTASSIUM CHLOR 20 MEQ PREMIX 100 ML IV PRN (16:15)
[2017-08-02] MEDS ORDERED: DO NOT ADM ANY ANTICOAGULANT DRUGS PRN (16:15)
[2017-08-02] MEDS ORDERED: Post-op Orders (for Pharmacy) XX ONE (16:15)
[2017-08-02] MEDS ORDERED: ENALAPRILAT 1.25 MG/ML VIAL IV PUSH PRN (16:15)
[2017-08-02] MEDS ORDERED: POTASSIUM CHLOR 40 MEQ PREMIX 100 ML IV PRN (16:15)
[2017-08-02] MEDS ORDERED: ONDANSETRON ODT 4 MG TAB SL PRN (16:15)
[2017-08-02] MEDS ORDERED: MORPHINE SULFATE 4 MG/ML INJ ONE (16:17)
[2017-08-02] MEDS ORDERED: MIDAZOLAM HCL 2 MG/2 ML VIAL ONE (16:17)
[2017-08-02] MEDS ORDERED: *morphine SULFATE 10 MG/ML PERIprocedure ONLY ONE ×2 (16:19→16:39)
[2017-08-02] MEDS ORDERED: *RESP: ALBUTEROL 2.5 MG/3 ML NEB (PRN) PERIprocedural Use ONLY NEB ONE (16:24)
[2017-08-02] MEDS: D5-NS + KCL 20 MEQ INJ 1,000 ML IV SCH ×2 (16:31→22:44)
[2017-08-02] MEDS: MORPHINE SULFATE 30 MG/30 ML PCA IV SCH (16:31)
[2017-08-02] MEDS ORDERED: *HYDROmorphone PF 0.5 MG/0.5 ML PERIprocedure ONLY ONE (16:50)
[2017-08-02] MEDS: LISINOPRIL 20 MG TAB PO SCH (18:16)
[2017-08-02] MEDS: BUDESONIDE-FORMOTEROL 160/4.5 MCG INHALER INH SCH (22:22)
[2017-08-02] MEDS: METOCLOPRAMIDE HCL 10 MG/2 ML VIAL IVS SCH (22:23)
[2017-08-03] VITALS (24 sets, daily range): BP systolic 92–133; BP diastolic 53–75; PULSE 62–98; RESP 16–22; TEMP 97.4–99.7; O2SAT 91–96
[2017-08-03] MEDS: metroNIDAZOLE 500 MG INJ 100 ML IV SCH ×3 (01:43→15:29)
[2017-08-03] MEDS: D5-NS + KCL 20 MEQ INJ 1,000 ML IV SCH ×3 (02:00→18:00)
[2017-08-03] MEDS: RESP: ALBUTEROL 2.5 MG/3 ML NEB (PRN) NEB ×2 (04:57→09:11)
[2017-08-03 05:33] LABS: CALCIUM 8.6 MG/DL (8.5-10.1); CREATININE 0.88 MG/DL (0.50-1.00)
[2017-08-03 05:49] LABS: AUTOMATED NEUTROPHIL # 18.4 TH/MM3 (1.8-7.7); BASOPHIL # 0.1 TH/MM3 (0-0.2); BASOPHIL % 0.5 % (0.0-2.0); HEMATOCRIT 36.2 % (35.0-46.0); HEMOGLOBIN 11.6 GM/DL (11.6-15.3); LYMPH % 6.5 % (9.0-44.0); LYMPHOCYTE # 1.4 TH/MM3 (1.0-4.8); MEAN CELL VOLUME 89.9 FL (80.0-100.0); MEAN CORPUSCULAR HGB CONC 32.2 % (32.0-36.0); MEAN PLATELET VOLUME 8.8 FL (7.0-11.0); MONO % 5.3 % (0.0-8.0); MONOCYTE # 1.1 TH/MM3 (0-0.9); NEUT % 87.7 % (16.0-70.0); PLATELET COUNT 323 TH/MM3 (150-450); RED BLOOD COUNT 4.02 MIL/MM3 (4.00-5.30); RED CELL DISTRIBUTION WIDTH 13.3 % (11.6-17.2)
[2017-08-03] MEDS: DEXT 5%-NACL 0.9% 1000 ML INJ 1,000 ML IV SCH ×2 (06:00→13:58)
[2017-08-03] MEDS: PCA - TOTAL MG MORPHINE DELIVERED PER SHIFT SCH ×3 (06:21→22:00)
[2017-08-03] MEDS: BUDESONIDE-FORMOTEROL 160/4.5 MCG INHALER INH SCH ×2 (08:54→21:31)
[2017-08-03] MEDS: ALBUTEROL SULFATE 90 MCG/ACT HFA 8 GM INHALER INH PRN (08:54)
[2017-08-03] MEDS: PANTOPRAZOLE SODIUM 40 MG VIAL IVP SCH (08:55)
[2017-08-03] MEDS: PANTOPRAZOLE SOD 40 MG DELAYED RELEASE TAB PO SCH (08:55)
[2017-08-03] MEDS: ATORVASTATIN 40 MG TAB PO SCH (08:56)
[2017-08-03] MEDS: METOCLOPRAMIDE HCL 10 MG/2 ML VIAL IVS SCH ×2 (08:56→21:29)
[2017-08-03] MEDS: LISINOPRIL 20 MG TAB PO SCH (08:58)
[2017-08-03] MEDS ORDERED: NON-FORMULARY DRUG (Biotin 10 MG) PO SCH (09:00)
[2017-08-03] MEDS ORDERED: ALVIMOPAN 12 MG CAPSULE - Post-op dosing PO SCH (09:00)
[2017-08-03] MEDS: ALPRAZolam 1 MG TAB PO PRN (10:13)
[2017-08-03] MEDS: MORPHINE SULFATE 30 MG/30 ML PCA IV SCH (17:53)
[2017-08-03] MEDS: ALVIMOPAN 12 MG CAPSULE PO SCH (21:29)
--- NOTE | 2017-08-03 22:34 | HHI.PR ---
Subjective Remarks C/R Surg POD #1 afebrile, VSS UO good Resp OK Objective - Vital Signs Date Time Temp Pulse Resp B/P (MAP) Pulse Ox O2 Delivery O2 Flow Rate FiO2 08/03/17 20:36 94 08/03/17 19:00 99.7 22 131/69 (89) 94 08/03/17 09:13 Nasal Cannula 2.00 Result Diagram: 08/03/17 0433 08/03/17 0433 Objective Remarks PE alert Abd - soft, wound dry, drains min A/P Assessment and Plan Imp: stable post-op OOB decr IVF resp Rx Victor Manuel Yo MD Aug 03, 2017 22:34
[2017-08-04] VITALS (25 sets, daily range): BP systolic 98–116; BP diastolic 56–65; PULSE 91–100; RESP 18–24; TEMP 97.9–99.9; O2SAT 90–94
[2017-08-04] MEDS: FUROSEMIDE 20 MG/2 ML VIAL IV PUSH SCH ×2 (00:08→20:51)
[2017-08-04] MEDS: ALBUTEROL SULFATE 90 MCG/ACT HFA 8 GM INHALER INH PRN ×2 (00:08→09:01)
[2017-08-04] MEDS: D5-NS + KCL 20 MEQ INJ 1,000 ML IV SCH ×4 (04:07→20:51)
[2017-08-04] MEDS: PCA - TOTAL MG MORPHINE DELIVERED PER SHIFT SCH ×3 (06:00→20:52)
[2017-08-04 06:12] LABS: AUTOMATED NEUTROPHIL # 13.9 TH/MM3 (1.8-7.7); BASOPHIL # 0.1 TH/MM3 (0-0.2); BASOPHIL % 0.6 % (0.0-2.0); EOSINOPHIL # 0.1 TH/MM3 (0-0.4); EOSINOPHIL % 0.4 % (0.0-4.0); HEMATOCRIT 35.5 % (35.0-46.0); HEMOGLOBIN 11.7 GM/DL (11.6-15.3); LYMPH % 12.6 % (9.0-44.0); LYMPHOCYTE # 2.2 TH/MM3 (1.0-4.8); MEAN CELL VOLUME 89.4 FL (80.0-100.0); MEAN CORPUSCULAR HEMOGLOBIN 29.5 PG (27.0-34.0); MEAN PLATELET VOLUME 8.7 FL (7.0-11.0); MONO % 7.9 % (0.0-8.0); MONOCYTE # 1.4 TH/MM3 (0-0.9); NEUT % 78.5 % (16.0-70.0); PLATELET COUNT 284 TH/MM3 (150-450); RED BLOOD COUNT 3.98 MIL/MM3 (4.00-5.30); RED CELL DISTRIBUTION WIDTH 13.7 % (11.6-17.2); WHITE BLOOD COUNT 17.7 TH/MM3 (4.0-11.0)
[2017-08-04 06:37] LABS: BICARBONATE 24.7 MEQ/L (21.0-32.0); CALCIUM 8.2 MG/DL (8.5-10.1); CREATININE 0.71 MG/DL (0.50-1.00)
--- NOTE | 2017-08-04 07:40 | HHI.PR ---
Subjective Remarks C/R Surg POD #2 afebrile, VSS UO good Resp - SOB Objective - Vital Signs Date Time Temp Pulse Resp B/P (MAP) Pulse Ox O2 Delivery O2 Flow Rate FiO2 08/04/17 06:00 95 08/04/17 06:00 18 08/04/17 03:00 99.9 107/65 (79) 94 08/03/17 22:28 Nasal Cannula 2.00 Result Diagram: 08/04/17 0521 08/04/17 0521 Objective Remarks PE alert Abd - soft, wound dry, drains min A/P Assessment and Plan Imp: OOB decr IVF resp Rx - inhalers Victor Manuel Yo MD Aug 04, 2017 07:40
[2017-08-04] MEDS ORDERED: FAMOTIDINE 20 MG/2 ML VIAL IV ONE (07:45)
[2017-08-04] MEDS ORDERED: FUROSEMIDE 20 MG/2 ML VIAL IV PUSH ONE (08:00)
[2017-08-04] MEDS: ALVIMOPAN 12 MG CAPSULE PO SCH ×2 (08:57→20:52)
[2017-08-04] MEDS: PANTOPRAZOLE SOD 40 MG DELAYED RELEASE TAB PO SCH (08:57)
[2017-08-04] MEDS: LISINOPRIL 20 MG TAB PO SCH (08:57)
[2017-08-04] MEDS: ATORVASTATIN 40 MG TAB PO SCH (08:58)
[2017-08-04] MEDS: METOCLOPRAMIDE HCL 10 MG/2 ML VIAL IVS SCH ×2 (08:59→20:51)
[2017-08-04] MEDS: PANTOPRAZOLE SODIUM 40 MG VIAL IVP SCH (09:00)
[2017-08-04] MEDS: BUDESONIDE-FORMOTEROL 160/4.5 MCG INHALER INH SCH ×2 (09:01→20:52)
--- NOTE | 2017-08-04 11:01 | MP ---
cc: Victor Manuel Yo MD DATE OF OPERATION: PREOPERATIVE DIAGNOSIS: Multiple ventral hernias. PROCEDURE PERFORMED: Exploratory laparotomy with repair of multiple ventral hernias, lysis of adhesions and insertion of Marlex mesh. POSTOPERATIVE DIAGNOSIS: Multiple ventral hernias. SURGEON: Victor Manuel Yo MD PUBLIC WORKS MANAGER: Jewell Marinelli MD. PROCEDURE: The patient was placed in the supine position. After adequate general anesthesia, her abdomen was prepped with Betadine solution and draped in the usual sterile fashion. With Dr. Marinelli' assistance, the previous midline incision was opened, encountering several adhesions along the midline incision. The hernia sacs were opened and the peritoneal cavity explored. There were some adhesions at the site of the previous ileostomy takedown. These were divided, freeing up the bowel. The rest of the abdominal exploration was pretty unremarkable. Subcutaneous planes were developed on the anterior fascia on both sides to free up the fascia. Attenuated fascia and hernia sac was excised from the midline. There was enough laxity at this point to enable primary closure in the midline and was closed using a running #1 PDS suture. The subcutaneous tissue was irrigated copiously. There did not appear to be excessive tension on the closure. A piece of Marlex mesh was cut to the appropriate size and sewn around the anterior rectus sheath, around the perimeter of the repair with a Prolene suture. It was tacked along the midline with additional Vicryl sutures. The subcutaneous tissue was then irrigated copiously. Antonio-Ha drains were placed into the subcutaneous tissues, brought out through stab wounds in the lower abdomen and secured to the skin with nylon sutures. Subcutaneous tissues were again closed along the midline, obliterating space with Vicryl stitches and the skin closed with subcuticular Vicryl suture and some skin chris as well. Wound area washed with normal saline and dried, sterile dressing of Telfa and gauze applied. The patient tolerated the procedure quite well and was brought to the recovery room in stable condition. Victor Manuel Yo MD AHR/TL , 10:29 AM , 11:00 AM
[2017-08-04] MEDS: RESP: ALBUTEROL 2.5 MG/3 ML NEB (PRN) NEB (19:41)
[2017-08-04] MEDS: ALPRAZolam 1 MG TAB PO PRN (20:52)
[2017-08-05] VITALS (17 sets, daily range): BP systolic 90–116; BP diastolic 50–61; PULSE 78–97; RESP 16–22; TEMP 98.1–98.8; O2SAT 93–97
[2017-08-05] MEDS: MORPHINE SULFATE 30 MG/30 ML PCA IV SCH (03:46)
[2017-08-05] MEDS: PCA - TOTAL MG MORPHINE DELIVERED PER SHIFT SCH ×2 (05:04→14:00)
[2017-08-05] MEDS: RESP: ALBUTEROL 2.5 MG/3 ML NEB (PRN) NEB ×2 (08:16→15:57)
[2017-08-05] MEDS: BUDESONIDE-FORMOTEROL 160/4.5 MCG INHALER INH SCH ×2 (08:59→20:37)
[2017-08-05] MEDS: FUROSEMIDE 20 MG/2 ML VIAL IV PUSH SCH ×2 (09:00→20:30)
[2017-08-05] MEDS: PANTOPRAZOLE SODIUM 40 MG VIAL IVP SCH (09:00)
[2017-08-05] MEDS: ALVIMOPAN 12 MG CAPSULE PO SCH ×2 (09:00→20:30)
[2017-08-05] MEDS: METOCLOPRAMIDE HCL 10 MG/2 ML VIAL IVS SCH ×2 (09:00→20:30)
[2017-08-05] MEDS: PANTOPRAZOLE SOD 40 MG DELAYED RELEASE TAB PO SCH (09:00)
[2017-08-05] MEDS: ATORVASTATIN 40 MG TAB PO SCH (09:00)
[2017-08-05] MEDS: LISINOPRIL 20 MG TAB PO SCH (09:01)
[2017-08-05] MEDS: D5-NS + KCL 20 MEQ INJ 1,000 ML IV SCH (12:03)
[2017-08-05] MEDS ORDERED: VANCOMYCIN INJ 1,000 MG in SODIUM CHLOR 0.9% 250 ML INJ 250 ML IV SCH (20:00)
[2017-08-05] MEDS: VANCOMYCIN INJ 1,000 MG in SODIUM CHLOR 0.9% 250 ML INJ 250 ML IV SCH (21:26)
[2017-08-06] VITALS: BP 95/52; PULSE 83; RESP 18; TEMP 97.8; O2SAT 95
[2017-08-06] MEDS: D5-NS + KCL 20 MEQ INJ 1,000 ML IV SCH ×2 (03:58→20:29)
[2017-08-06] MEDS: RESP: ALBUTEROL 2.5 MG/3 ML NEB (PRN) NEB ×3 (04:08→20:12)
[2017-08-06] MEDS: ACETAMINOPHEN/HYDROcodone 325 MG/5 MG TAB PO PRN ×4 (06:30→20:28)
[2017-08-06 08:00] VITALS: BP 100/56; PULSE 78; RESP 22; TEMP 98.4; O2SAT 92
[2017-08-06] MEDS: PANTOPRAZOLE SODIUM 40 MG VIAL IVP SCH (09:00)
[2017-08-06] MEDS: PANTOPRAZOLE SOD 40 MG DELAYED RELEASE TAB PO SCH (10:00)
[2017-08-06] MEDS: ALVIMOPAN 12 MG CAPSULE PO SCH ×2 (10:00→20:24)
[2017-08-06] MEDS: METOCLOPRAMIDE HCL 10 MG/2 ML VIAL IVS SCH ×2 (10:01→20:25)
[2017-08-06] MEDS: FUROSEMIDE 20 MG/2 ML VIAL IV PUSH SCH ×2 (10:01→20:25)
[2017-08-06] MEDS: VANCOMYCIN INJ 1,000 MG in SODIUM CHLOR 0.9% 250 ML INJ 250 ML IV SCH ×2 (10:01→20:29)
[2017-08-06] MEDS: BUDESONIDE-FORMOTEROL 160/4.5 MCG INHALER INH SCH ×2 (10:02→20:29)
[2017-08-06] MEDS: LISINOPRIL 20 MG TAB PO SCH (10:02)
[2017-08-06] MEDS: ATORVASTATIN 40 MG TAB PO SCH (10:02)
[2017-08-06] MEDS: ALPRAZolam 1 MG TAB PO PRN (10:04)
[2017-08-06 12:00] VITALS: BP 107/54; PULSE 79; RESP 16; TEMP 97.1; O2SAT 95
[2017-08-06 16:00] VITALS: BP 103/54; PULSE 86; RESP 18; TEMP 98.1; O2SAT 92
[2017-08-06 20:00] VITALS: BP 122/73; PULSE 81; RESP 18; TEMP 97.7; O2SAT 96
--- NOTE | 2017-08-06 22:17 | HHI.PR ---
Subjective Remarks C/R Surg POD #4 afebrile, VSS UO good Resp - SOB better Objective - Vital Signs Date Time Temp Pulse Resp B/P (MAP) Pulse Ox O2 Delivery O2 Flow Rate FiO2 08/06/17 16:00 98.1 86 18 103/54 (70) 92 08/05/17 20:26 Nasal Cannula 2.00 Result Diagram: 08/04/17 0521 08/04/17 0521 Objective Remarks PE alert Abd - soft, wound dry, redness better A/P Assessment and Plan Imp: OOB decr IVF resp Rx - inhalers Vanco , local wound care Victor Manuel Yo MD Aug 06, 2017 22:17
[2017-08-07] VITALS: BP 131/74; PULSE 81; RESP 20; TEMP 97.3; O2SAT 94
[2017-08-07] MEDS: ACETAMINOPHEN/HYDROcodone 325 MG/5 MG TAB PO PRN ×3 (00:18→12:05)
[2017-08-07] MEDS: RESP: ALBUTEROL 2.5 MG/3 ML NEB (PRN) NEB ×4 (00:47→13:14)
[2017-08-07 00:50] VITALS: O2SAT 94
[2017-08-07 03:43] VITALS: O2SAT 94
[2017-08-07 08:00] VITALS: BP 141/73; PULSE 73; RESP 18; TEMP 97.3; O2SAT 94
[2017-08-07 08:06] VITALS: O2SAT 95
--- NOTE | 2017-08-07 08:30 | HHI.DCPOC ---
Discharge Care Plan Diagnosis: (1) Status post repair of recurrent ventral hernia Your Health Problems Are: Incision/Drains Appetite Changes Irregular Bowel Function Exercise Tolerance Goals to Promote Your Health * To prevent worsening of your condition and complications * To maintain your health at the optimal level Directions to Meet Your Goals Take your medications as prescribed Follow your dietary instruction Follow activity as directed Keep your appointments as scheduled Take your immunizations and boosters as scheduled If your symptoms worsen call your PCP, if no PCP go to Urgent Care Center or Emergency Room Smoking is Dangerous to Your Health. Avoid second hand smoke Call the 24-hour hour crisis hotline for domestic abuse at Oliver Rucker MD Aug 07, 2017 08:30
[2017-08-07] MEDS: PANTOPRAZOLE SODIUM 40 MG VIAL IVP SCH (09:00)
[2017-08-07] MEDS: PANTOPRAZOLE SOD 40 MG DELAYED RELEASE TAB PO SCH (09:30)
[2017-08-07] MEDS: ALVIMOPAN 12 MG CAPSULE PO SCH (09:30)
[2017-08-07] MEDS: METOCLOPRAMIDE HCL 10 MG/2 ML VIAL IVS SCH (09:31)
[2017-08-07] MEDS: FUROSEMIDE 20 MG/2 ML VIAL IV PUSH SCH (09:31)
[2017-08-07] MEDS: LISINOPRIL 20 MG TAB PO SCH (09:31)
[2017-08-07] MEDS: ATORVASTATIN 40 MG TAB PO SCH (09:31)
[2017-08-07] MEDS: BUDESONIDE-FORMOTEROL 160/4.5 MCG INHALER INH SCH (09:32)
[2017-08-07] MEDS: VANCOMYCIN INJ 1,000 MG in SODIUM CHLOR 0.9% 250 ML INJ 250 ML IV SCH (09:35)
== END 2017-08-07 14:05 | disposition home or self-care (01) | DRG 355 ==
LOC: HSDI 12:07 → HCPC 17:26 → N07A 08-05 17:38
PROVIDERS: ADMIT Colon & Rectal Surgery; ATTEND Colon & Rectal Surgery
PROC: 0WUF0JZ Supplement Abdominal Wall with Synthetic Substitute, Open Approach (ICD-10-PCS; principal; 2017-08-02 14:23)
DX: K43.9 Ventral hernia without obstruction or gangrene (principal); I10 Essential (primary) hypertension; J44.9 Chronic obstructive pulmonary disease, unspecified; Z87.891 Personal history of nicotine dependence
CPT/HCPCS: 76937; 80048; 85025; 86850; 86900; 86901; 94150; 94640; 94664; C1781; C9113; J0131; J0690; J1100; J1170; J1885; J1940; J2250; J2270; J2405; J2710; J2765; J3010; J3370; J3480; J7050; J7120; J7613